=== PATIENT | male | born 1945 | race Caucasian/White ===

== ENCOUNTER → 2016-12-17 | Outpatient (CLI) | payer OTHER, MEDICARE ==
[~2016-12-17] MED LIST: ACET-1256 PO; AMIO200T4 PO; ASCA500 PO; ASPEC81 PO; ASPI81TA28 PO; ATEN-173 PO; ATOR-26 PO; ATOR80TA PO; B-COCAP2 PO; CEPH500C PO; CEPH500C2 PO; CLON0.5T3 PO; DMD20 PO; DOCU100C31 PO; FAMO20TA11 PO; FURO-85 PO; GABA-113 PO; GLIP10TA9 PO; INSDGI SC; INSDGIPEN SC; LORA-741 PO; LOSA1TAB PO; LSX40 PO; MAGN400T5 PO; MAGN400T6 PO; NRN100 PO; NTRGSL/4 UT; OMEG10007 PO; POLY335019 PO; POTA10CA28 PO; SENN-61 PO; SPIR25TA PO; SPR25 PO; TAMS0.4C38 PO; TPRSR25 PO; TRAM-10 PO; ULT50X PO; WARF5TAB90 PO; ZOLP5TAB6 PO
--- NOTE | 2016-12-17 14:01 | DIAGNOSTIC IMAGING REPORT ---
RIGHT HEEL MIN 2 VIEWS CLINICAL HISTORY: PAIN AND OPEN WOUND Right COMPARISON STUDY: Right heel 05/19/2012. FINDINGS: There is again noted a 1.3 cm skin ulceration at the posterior heel. No underlying bony destruction to suggest osteomyelitis. No fracture or dislocation within the calcaneus. Vascular calcifications are noted. No radiopaque foreign bodies. Plantar and posterior calcaneal spurs. IMPRESSION: A 1.3 cm skin ulceration of the posterior heel. No radiographic evidence for osteomyelitis. Electronically signed by: Jadiel Washington M.D. 12/17/2016 1:59 PM Dictated Date/Time: 12/17/2016 1:57 PM
== END | disposition home or self-care (01) ==
LOC: C.RAD 13:14
PROVIDERS: ATTEND Emergency Medicine
DX: T14.8 Other injury of unspecified body region (principal); X58.XXXA Exposure to other specified factors, initial encounter; R52 Pain, unspecified

== ENCOUNTER 2017-03-01 16:17 | Inpatient (IN) | payer OTHER, MEDICARE ==
[~2017-03-01] VITALS: Ht 175.3 cm; Wt 110.8 kg
[~2017-03-01 16:17] MED LIST changes: -ACET-1256 PO; -AMIO200T4 PO; -ASPI81TA28 PO; -ATOR-26 PO; -CEPH500C PO; -CLON0.5T3 PO; -DMD20 PO; -DOCU100C31 PO; -FAMO20TA11 PO; -FURO-85 PO; -GABA-113 PO; -INSDGIPEN SC; -LORA-741 PO; -MAGN400T6 PO; -NRN100 PO; -POLY335019 PO; -POTA10CA28 PO; -SENN-61 PO; -SPR25 PO; -TAMS0.4C38 PO; -TPRSR25 PO; -TRAM-10 PO; -ULT50X PO; -ZOLP5TAB6 PO
--- NOTE | 2017-03-01 17:54 | EMERGENCY ROOM VISIT NOTE ---
History Report prepared by Alex: Ursula Martins Under the Supervision of: Dr. Kolton Zimmer M.D. First contact with patient: 17:13 Chief Complaint: CARDIAC ASSESSMENT Stated Complaint: CHF,POSSIBLE FLUID ON LUNG History of Present Illness The patient is a 72 year old male who presents to the Emergency Room with complaints of persistent, worsening shortness of breath over the last two weeks. The patient states that he has been at [facility] for the past two weeks after three cardiac surgeries. He additionally associates worsening leg swelling up to his hips. The patient states that prior to [facility] he was on 40 mg of Lasix twice a day, but since he was at [facility] he has been on 60 mg of Lasix daily. He states that he wears compression stockings on his legs to help with swelling. The patient reports that he takes Coumadin for atrial fibrillation. 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 The patient states that he is much more short of breath today than normal. He reports that his shortness of breath is worsened with exertion. The patient denies any fever, cough, or vomiting. He states that he has not been urinating normally--his output has decreased. 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 Source of History: patient Onset: last two weeks Position: other (global) Quality: other (shortness of breath) Timing: worsening, other (persistent) Modifying Factors (Worsening): exertion Associated Symptoms: + urinary symptoms (not urinating normally), No fevers , No cough, No vomiting Note: Associated Symptoms: increasing leg edema Review of Systems See HPI for pertinent positives & negatives. A total of 10 systems reviewed and were otherwise negative. Past Medical & Surgical Medical Problems: (1) Aortic stenosis (2) Atrial fibrillation (3) CHF (congestive heart failure) (4) Coronary artery disease (5) Diabetes mellitus, type II (6) Diabetic neuropathy (7) Difficult airway (8) Dyslipidemia (9) History of renal calculi (10) Hypertension (11) Stroke Surgical Problems: (1) Status post cataract extraction (2) Status post coronary artery bypass grafting (3) status post Syme amputation left great toe Family History Heart disease Social History Smoking Status: Never Smoker Alcohol Use: none Drug Use: none Marital Status: Housing Status: lives with significant other Occupation Status: retired Current/Historical Medications Scheduled Amiodarone Hcl (Cordarone), 200 MG PO DAILY Aspirin (Aspirin Ec), 81 MG PO DAILY Atorvastatin (Lipitor), 80 MG PO DAILY Clonazepam (Klonopin), 0.25 MG PO BID Famotidine (Pepcid), 20 MG PO DAILY Furosemide (Lasix), 3 TAB PO BID Gabapentin (Neurontin), 300 MG PO TID Insulin Glargine (Lantus), 75-100 UNITS SC DAILY Magnesium Oxide (Mag-Ox), 400 MG PO DAILY Nitroglycerin (Nitrostat), 0.4 MG UT PRN Polyethylene Glycol 3350 (Miralax), 17 GM PO DAILY Potassium Chloride (Micro-K Ext Rel), 10 MEQ PO BID Senna (Senokot), 1 TAB PO DAILY Tamsulosin Hcl (Flomax), 1 CAP PO DAILY Warfarin Sodium (Coumadin), 5 MG PO DAILY Scheduled PRN Acetaminophen (Tylenol), 500 MG PO Q4H PRN for Pain or Fever Clonazepam (Klonopin), 0.5 MG PO HS PRN for Anxiety Docusate Sodium (Docusate Sodium), 1 CAP PO BID PRN for Constipation Lorazepam (Ativan), 0.5 MG PO Q6H PRN for Anxiety/Agitation Zolpidem Tartrate (Zolpidem Tartrate), 1 TAB PO HS PRN for Sleep Allergies Coded Allergies: Lisinopril (Unverified Allergy, Severe, COUGH, 03/01/17) Physical Exam Vital Signs Date Time Temp Pulse Resp B/P (MAP) Pulse Ox O2 Delivery O2 Flow Rate FiO2 03/01/17 20:18 78 20 170/51 100 Nasal Cannula 5.0 03/01/17 18:12 78 18 98 Nasal Cannula 03/01/17 17:47 95 Nasal Cannula 3.0 03/01/17 17:41 86 03/01/17 17:32 94 Nasal Cannula 03/01/17 17:19 94 Nasal Cannula 3.0 03/01/17 16:20 36.4 77 24 125/65 89 Room Air Physical Exam GENERAL: Patient is in no acute distress. HEENT: No acute trauma, normocephalic atraumatic, mucous membranes moist, no nasal congestion, no scleral icterus. NECK: No stridor, no adenopathy, no meningismus, trachea is midline. LUNGS: Crackles at both bases, breath sounds are equal, no wheezing. HEART: Irregular with a normal rate, no obvious murmurs. ABDOMEN: Soft, nontender, bowel sounds positive, no hernias, no peritonitis. EXTREMITIES: Significant bilateral pedal edema. No cyanosis, full range of motion of all the joints without pain or difficulty, no signs for acute trauma. NEUROLOGIC: Oriented x 3, no acute motor or sensory deficits, no focal weakness. SKIN: No rash, no jaundice, no diaphoresis. Medical Decision & Procedures ER Provider Diagnostic Interpretation: X-ray results as stated below per interpretation by me and the radiologist: SINGLE VIEW CHEST CLINICAL HISTORY: Dyspnea. FINDINGS: An AP, portable, upright chest radiograph is compared to study dated 08/23/2016. The examination is degraded by portable technique, large body habitus, and patient rotation. The patient is status post midline sternotomy. The heart is enlarged and there is atherosclerotic calcification of the thoracic aorta. There is pulmonary vascular congestion and interstitial edema. Layering pleural effusions are identified with bibasilar consolidation. No pneumothorax is seen. The skeletal structures are osteopenic. The bony thorax is grossly intact. IMPRESSION: 1. Cardiomegaly with evidence of congestive failure and interstitial edema. 2. Layering pleural effusions with bibasilar consolidation. This likely represents atelectasis. Correlated clinically for evidence of superimposed pneumonia. Electronically signed by: Kolton Rahman M.D. 03/01/2017 6:10 PM Dictated Date/Time: 03/01/2017 6:09 PM Laboratory Results 03/01/17 18:30 Test 03/01/17 18:30 03/01/17 19:51 Prothrombin Time 25.1 SECONDS (9.0-12.0) Prothromb Time International Ratio 2.3 (0.9-1.1) Activated Partial Thromboplast Time 33.9 SECONDS (21.0-31.0) Partial Thromboplastin Ratio 1.3 Anion Gap 6.0 mmol/L (3-11) Estimated GFR () 77.3 Estimated GFR (Non- 66.7 BUN/Creatinine Ratio 43.2 (10-20) Calcium Level 8.0 mg/dl (8.5-10.1) Magnesium Level 2.9 mg/dl (1.8-2.4) Total Bilirubin 0.7 mg/dl (0.2-1) Aspartate Amino Transf (AST/SGOT) 25 U/L (15-37) Alanine Aminotransferase (ALT/SGPT) 35 U/L (12-78) Alkaline Phosphatase 149 U/L (45-117) Troponin I 0.050 ng/ml (0-0.045) Pro-B-Type Natriuretic Peptide 6506 pg/ml (0-900) Total Protein 7.0 gm/dl (6.4-8.2) Albumin 2.5 gm/dl (3.4-5.0) Globulin 4.5 gm/dl (2.5-4.0) Albumin/Globulin Ratio 0.6 (0.9-2) Laboratory results reviewed by me. Medications Administered Medications (Trade) Dose Ordered Sig/Amy Route Start Time Stop Time Status Last Admin Dose Admin Bumetanide (Bumex IV) 1 mg NOW STAT IV 03/01/17 18:37 03/01/17 18:38 DC 03/01/17 19:00 1 MG Albuterol/ Ipratropium (Duoneb) 3 ml NOW STAT INH 03/01/17 19:56 03/01/17 19:57 DC 03/01/17 20:01 3 ML ECG Indication: SOB/dyspnea Rate (beats per minute): 93 Rhythm: atrial fibrillation Findings: no acute ischemic change, other (old septal infarct, significant baseling artifact making it difficut to interpret) ED Course 1724: The patient was evaluated in room C5. A complete history and physical exam was performed by the family service caseworker. 1745: The patient was evaluated in room C5. A complete history and physical exam was performed. I discussed the treatment plan with him and he verbalized complete understanding and agreement. He will be evaluated for further treatment. 1836: Ordered Bumex IV 1 mg IV. 1928: The resident spoke to Khris Gray regarding the patient. Dr. Vang is going to evaluate the patient for further treatment. 1930: The resident reevaluated the patient and the patient is doing well. He discussed the exam findings with the patient and he discussed the treatment plan. The patient verbalized complete understanding and agreement. He will be evaluated for further treatment. Medical Decision The patient is a 72 year old male who presents to the ED with complaints of shortness of breath. Differential diagnoses considered include renal failure, fluid overload, CHF, pneumonia or bronchitis, cardiac ischemia, pericardial effusion. The patient's CBC is currently pending. Renal panel testing does not show renal failure or significant electrolyte abnormality. The patient's INR is elevated consistent with his Coumadin use. There is no hepatitis. EKG shows A. fib without any acute ischemia. There was a very mild elevation to the cardiac troponin-this could be consistent with cardiac strain or injury. Chest x-ray shows CHF and bilateral pleural effusions. BNP is quite elevated consistent with fluid overload. Patient was given a DuoNeb to help his wheezing. He was given IV Bumex to help with diuresis. Given the hypoxia, given the increased weight gain, given the findings on x-ray and on laboratory testing, admission/observation is warranted. The patient requires further in-hospital diuresis, he requires further cardiac workup. He may even need a thoracentesis. The case manager specialist have been involved. The patient is aware of his findings. The on-call hospitalist was consulted. Medication Reconciliation: I attest that I have personally reviewed the patient' s current medication list. Blood Pressure Screening: Patient was found to have normal blood pressure on screening and does not require follow-up. Consults Time Called: 1923 Consulting Physician: Khris Gray Returned Call: 1928 The resident spoke to Khris Gray regarding the patient. Dr. Vang is going to evaluate the patient for further treatment. Impression Primary Impression: Hypoxia Additional Impressions: CHF (congestive heart failure) Pleural effusion Elevated troponin Scribe Attestation The scribe's documentation has been prepared under my direction and personally reviewed by me in its entirety. I confirm that the note above accurately reflects all work, treatment, procedures, and medical decision making performed by me. Departure Information Dispostion Being Evaluated By Hospitalist Barrera Weber M.D. (PCP) Problem Qualifiers
--- NOTE | 2017-03-01 18:02 | EMERGENCY ROOM VISIT NOTE ---
History First contact with patient: 17:21 Chief Complaint: CARDIAC ASSESSMENT Stated Complaint: CHF,POSSIBLE FLUID ON LUNG History of Present Illness The patient is a 72 year old male who presents to the Emergency Room with complaints of shortness of breath and leg swelling. The patient is currently at [facility] for rehab (has been there for 2 weeks) after having 3 surgeries at [place] including Aortic Valve repair, a correction, and a sternum repair. Since going to [facility] the patient has had worsening leg swelling and shortness of breath. He was initially on 40mg of Lasix BID prior to surgery, but since being at [facility] has been on 60mg Lasix daily. The patient was also not requiring oxygen prior to going for surgery, but has recently been using oxygen at night to sleep and is now requiring oxygen throughout the day. The patient was seen by his bookbinder chief Dr. Caputo this afternoon and was told he needed to be seen for diuresis at the hospital and was sent over. He denies any fevers, cough, abdominal pain, leg pain, headache, chills, diarrhea, vomiting, or back pain. Review of Systems See HPI for pertinent positives and negatives. A total of ten systems were reviewed and were otherwise negative. Past Medical/Surgical History Medical Problems: (1) Aortic stenosis (2) Atrial fibrillation (3) CHF (congestive heart failure) (4) Coronary artery disease (5) Diabetes mellitus, type II (6) Diabetic neuropathy (7) Difficult airway (8) Dyslipidemia (9) History of renal calculi (10) Hypertension (11) Stroke Surgical Problems: (1) Status post cataract extraction (2) Status post coronary artery bypass grafting (3) status post Syme amputation left great toe Family History Heart disease Social History Smoking Status: Never Smoker Alcohol Use: none Drug Use: none Marital Status: Housing Status: lives with significant other Occupation Status: retired Current/Historical Medications Scheduled Amiodarone Hcl (Cordarone), 200 MG PO DAILY Aspirin (Aspirin Ec), 81 MG PO DAILY Atorvastatin (Lipitor), 80 MG PO DAILY Clonazepam (Klonopin), 0.25 MG PO BID Famotidine (Pepcid), 20 MG PO DAILY Furosemide (Lasix), 3 TAB PO BID Gabapentin (Neurontin), 300 MG PO TID Insulin Glargine (Lantus), 75-100 UNITS SC DAILY Magnesium Oxide (Mag-Ox), 400 MG PO DAILY Nitroglycerin (Nitrostat), 0.4 MG UT PRN Polyethylene Glycol 3350 (Miralax), 17 GM PO DAILY Potassium Chloride (Micro-K Ext Rel), 10 MEQ PO BID Senna (Senokot), 1 TAB PO DAILY Tamsulosin Hcl (Flomax), 1 CAP PO DAILY Warfarin Sodium (Coumadin), 5 MG PO DAILY Scheduled PRN Acetaminophen (Tylenol), 500 MG PO Q4H PRN for Pain or Fever Clonazepam (Klonopin), 0.5 MG PO HS PRN for Anxiety Docusate Sodium (Docusate Sodium), 1 CAP PO BID PRN for Constipation Lorazepam (Ativan), 0.5 MG PO Q6H PRN for Anxiety/Agitation Zolpidem Tartrate (Zolpidem Tartrate), 1 TAB PO HS PRN for Sleep Allergies Coded Allergies: Lisinopril (Unverified Allergy, Severe, COUGH, 03/01/17) Physical Exam Vital Signs Date Time Temp Pulse Resp B/P (MAP) Pulse Ox O2 Delivery O2 Flow Rate FiO2 03/01/17 18:12 78 18 98 Nasal Cannula 03/01/17 17:47 95 Nasal Cannula 3.0 03/01/17 17:41 86 03/01/17 17:32 94 Nasal Cannula 03/01/17 17:19 94 Nasal Cannula 3.0 03/01/17 16:20 36.4 77 24 125/65 89 Room Air Physical Exam GENERAL: Awake, alert, in mild distress HENT: Normocephalic, atraumatic. Oropharynx unremarkable. EYES: Normal conjunctiva. Sclera non-icteric. NECK: Supple. No nuchal rigidity. RESPIRATORY: Decreased breath sounds bilaterally, bilateral crackles at lung bases CARDIAC: Irregularly Irregular. Extremities warm and well perfused. Pulses equal. ABDOMEN: Soft, edematous, No tenderness to palpation. No rebound or guarding. No masses. RECTAL: Deferred. MUSCULOSKELETAL: Chest examination reveals no tenderness. The back is symmetrical on inspection without obvious abnormality. There is no CVA tenderness to palpation. No joint edema. LOWER EXTREMITIES: Bilateral 4+ pitting edema to the hip. Fluid seeping from the lower extremities bilaterally. Compression stalkings over both legs. NEURO: Normal sensorium. No sensory or motor deficits noted. SKIN: No rash or jaundice noted. Medical Decision & Procedures Laboratory Results 03/01/17 18:30 Test 03/01/17 18:30 03/01/17 19:51 Prothrombin Time 25.1 SECONDS (9.0-12.0) Prothromb Time International Ratio 2.3 (0.9-1.1) Activated Partial Thromboplast Time 33.9 SECONDS (21.0-31.0) Partial Thromboplastin Ratio 1.3 Anion Gap 6.0 mmol/L (3-11) Estimated GFR () 77.3 Estimated GFR (Non- 66.7 BUN/Creatinine Ratio 43.2 (10-20) Calcium Level 8.0 mg/dl (8.5-10.1) Total Bilirubin 0.7 mg/dl (0.2-1) Aspartate Amino Transf (AST/SGOT) 25 U/L (15-37) Alanine Aminotransferase (ALT/SGPT) 35 U/L (12-78) Alkaline Phosphatase 149 U/L (45-117) Troponin I 0.050 ng/ml (0-0.045) Pro-B-Type Natriuretic Peptide 6506 pg/ml (0-900) Total Protein 7.0 gm/dl (6.4-8.2) Albumin 2.5 gm/dl (3.4-5.0) Globulin 4.5 gm/dl (2.5-4.0) Albumin/Globulin Ratio 0.6 (0.9-2) Medications Administered Medications (Trade) Dose Ordered Sig/Amy Route Start Time Stop Time Status Last Admin Dose Admin Bumetanide (Bumex IV) 1 mg NOW STAT IV 03/01/17 18:37 03/01/17 18:38 DC 03/01/17 19:00 1 MG Medical Decision Patient is a 72 year old male that presents with bilateral leg swelling and shortness of breath Differential diagnosis includes heart failure, pneumonia, UTI, cardiac ischemia , URI, cellulitis, and other etiologies were considered - CBC, BMP, Troponin, Pro-BNP, PT, PTT - Chest Xray, EKG - Given 1mg of Bumex - Chest Xray shows pleural effusions and appearance of heart failure - Troponin elevated at 0.050 - Pro[facility]BNP [facility] Impression Primary Impression: Heart failure Additional Impressions: Atrial fibrillation Elevated troponin Departure Information Dispostion Admitted as an inpatient Referrals Barrera Puri M.D. (PCP) Patient Instructions My [facility] Problem Qualifiers Primary Impression: Heart failure Heart failure type: unspecified heart failure type Heart failure chronicity: acute on chronic Qualified Codes: I50.9 - Heart failure, unspecified Additional Impressions: Atrial fibrillation Atrial fibrillation type: chronic Qualified Codes: I48.2 - Chronic atrial fibrillation
[2017-03-01] MEDS ORDERED: WARF5TAB90 PO (18:03)
[2017-03-01] MEDS ORDERED: POLY335019 PO (18:03)
[2017-03-01] MEDS ORDERED: ACET-1256 PO (18:03)
[2017-03-01] MEDS ORDERED: FURO-85 PO (18:03)
[2017-03-01] MEDS ORDERED: SENN-61 PO (18:03)
[2017-03-01] MEDS ORDERED: GABA-113 PO (18:03)
[2017-03-01] MEDS ORDERED: CLON0.5T3 PO ×2 (18:03)
[2017-03-01] MEDS ORDERED: AMIO200T4 PO (18:03)
[2017-03-01] MEDS ORDERED: ATOR-26 PO (18:03)
[2017-03-01] MEDS ORDERED: INSDGI SC (18:03)
[2017-03-01] MEDS ORDERED: ZOLP5TAB6 PO (18:03)
[2017-03-01] MEDS ORDERED: NTRGSL/4 UT (18:03)
[2017-03-01] MEDS ORDERED: ASPI81TA28 PO (18:03)
[2017-03-01] MEDS ORDERED: TAMS0.4C38 PO (18:03)
[2017-03-01] MEDS ORDERED: FAMO20TA11 PO (18:03)
[2017-03-01] MEDS ORDERED: MAGN400T6 PO (18:03)
[2017-03-01] MEDS ORDERED: POTA10CA28 PO (18:03)
[2017-03-01] MEDS ORDERED: LORA-741 PO (18:03)
[2017-03-01] MEDS ORDERED: DOCU100C31 PO (18:03)
--- NOTE | 2017-03-01 18:11 | DIAGNOSTIC IMAGING REPORT ---
SINGLE VIEW CHEST CLINICAL HISTORY: Dyspnea. FINDINGS: An AP, portable, upright chest radiograph is compared to study dated 08/23/2016. The examination is degraded by portable technique, large body habitus, and patient rotation. The patient is status post midline sternotomy. The heart is enlarged and there is atherosclerotic calcification of the thoracic aorta. There is pulmonary vascular congestion and interstitial edema. Layering pleural effusions are identified with bibasilar consolidation. No pneumothorax is seen. The skeletal structures are osteopenic. The bony thorax is grossly intact. IMPRESSION: 1. Cardiomegaly with evidence of congestive failure and interstitial edema. 2. Layering pleural effusions with bibasilar consolidation. This likely represents atelectasis. Correlated clinically for evidence of superimposed pneumonia. Electronically signed by: Kolton Rahman M.D. 03/01/2017 6:10 PM Dictated Date/Time: 03/01/2017 6:09 PM
[2017-03-01] MEDS ORDERED: BUMETANIDE SOLN 1 MG/4 ML VIAL IV STA (18:37)
[2017-03-01 18:50] LABS: ARTERIAL BLD GAS O2 SATURATION 97.5 % (90-95); ARTERIAL BLOOD GAS BASE EXCESS 3.6 mEq/L (-9-1.8); ARTERIAL BLOOD GAS HCO3 28 mmol/L (19-24); ARTERIAL BLOOD GAS PO2 112 mm/Hg (80-95); ARTERIAL BLOOD GAS pH 7.47 (7.35-7.45)
[2017-03-01 18:51] LABS: ALLEN TEST POS (POS); O2 ADMINISTRATION 4L
[2017-03-01 19:03] LABS: INR 2.3 (0.9-1.1); PARTIAL THROMBOPLASTIN RATIO 1.3; PROTHROMBIN TIME (PATIENT) 25.1 SECONDS (9.0-12.0)
[2017-03-01 19:10] LABS: ALT/SGPT 35 U/L (12-78); AST/SGOT 25 U/L (15-37); BLOOD UREA NITROGEN 48 mg/dl (7-18); BUN/CREATININE RATIO 43.2 (10-20); CARBON DIOXIDE 31 mmol/L (21-32); CHLORIDE 101 mmol/L (98-107); GLUCOSE 107 mg/dl (70-99); POTASSIUM 4.9 mmol/L (3.5-5.1); SODIUM 138 mmol/L (136-145)
[2017-03-01 19:18] LABS: ALB/GLOB RATIO 0.6 (0.9-2); ALKALINE PHOSPHATASE 149 U/L (45-117)
[2017-03-01] MEDS ORDERED: ALBUT/IPRATROP 3MG/0.5MG NEB 3 ML VIAL INH STA (19:56)
[2017-03-01] MEDS ORDERED: ALBUT/IPRATROP 3MG/0.5MG NEB 3 ML VIAL ONE (19:57)
[2017-03-01 20:57] LABS: HEMATOCRIT 31.3 % (42-52); MEAN CELL VOLUME 81.9 fL (80-100); MEAN CORPUSCULAR HEMOGLOBIN 23.8 pg (25-34); MEAN CORPUSCULAR HGB CONC 29.1 g/dl (32-36); MEAN PLATELET VOLUME 9.4 fL (7.4-10.4); PLATELET COUNT 261 K/uL (130-400); RED BLOOD COUNT 3.82 M/uL (4.7-6.1); WHITE BLOOD COUNT 8.94 K/uL (4.8-10.8)
[2017-03-01 21:22] LABS: ANISOCYTOSIS PRESENT; BASO % 0.3 %; BASO ABS # 0.03 K/uL (0-0.2); COMPLETE YES; HYPOCHROMIA PRESENT; IG% 0.4 %; LYMPH % 7.2 %; LYMPH ABS # 0.64 K/uL (1.2-3.4); MONO % 7.8 %; NEUT % 83.3 %; OVALOCYTES 1+; POLYCHROMASIA 1+; SCHISTOCYTES OCCASIONAL
[2017-03-01] MEDS ORDERED: CLONAZEPAM 0.5 MG TAB PO ONE (21:38)
[2017-03-01] MEDS ORDERED: GLUCAGON FOR INJ 1 MG VIAL SQ PRN (21:45)
[2017-03-01] MEDS ORDERED: GLUCOSE 40% GEL 15 GM TUBE PO PRN (21:45)
[2017-03-01] MEDS ORDERED: ALBUT/IPRATROP 3MG/0.5MG NEB 3 ML VIAL INH PRN (21:45)
[2017-03-01] MEDS ORDERED: NITROGLYCERIN 0.4 MG SL PER TAB CHARGE SL PRN (21:45)
[2017-03-01] MEDS ORDERED: DOCUSATE SODIUM 100 MG CAP PO PRN (21:45)
[2017-03-01] MEDS ORDERED: HYDROmorphone INJ 1 MG/ML SYR IV PRN (21:45)
[2017-03-01] MEDS ORDERED: DEXTROSE 50% 50 ML SYR IV PRN (21:45)
[2017-03-01] MEDS ORDERED: GLUCOSE 10 TABS/TUBE PO PRN (21:45)
[2017-03-01] MEDS ORDERED: ACETAMINOPHEN 325 MG TAB PO PRN (21:45)
[2017-03-01] MEDS ORDERED: ACETAMINOPHEN 500 MG TAB PO PRN (21:45)
[2017-03-01] MEDS ORDERED: TRAMADOL HCL 50 MG TAB PO PRN (21:45)
[2017-03-01 22:06] VITALS: Ht 175.3 cm; Wt 110.8 kg
[2017-03-01 22:07] VITALS: BP 141/80; PULSE 97; TEMP 37.8
[2017-03-01 23:30] VITALS: BP 98/38; PULSE 75; TEMP 36.6; O2SAT 97
[2017-03-01 23:59] VITALS: O2SAT 97
[2017-03-02] VITALS (11 sets, daily range): BP systolic 103–134; BP diastolic 60–85; PULSE 63–87; TEMP 35.5–37.1; O2SAT 94–100
[2017-03-02 07:23] LABS: MEAN CELL VOLUME 82.4 fL (80-100); MEAN CORPUSCULAR HEMOGLOBIN 23.6 pg (25-34); MEAN CORPUSCULAR HGB CONC 28.7 g/dl (32-36); MEAN PLATELET VOLUME 9.4 fL (7.4-10.4); PLATELET COUNT 230 K/uL (130-400); RED BLOOD COUNT 3.64 M/uL (4.7-6.1); WHITE BLOOD COUNT 9.16 K/uL (4.8-10.8)
[2017-03-02 07:28] LABS: INR 2.4 (0.9-1.1); PROTHROMBIN TIME (PATIENT) 27.2 SECONDS (9.0-12.0)
[2017-03-02 07:50] LABS: ANISOCYTOSIS PRESENT; BASO % 0.2 %; BASO ABS # 0.02 K/uL (0-0.2); COMPLETE YES; EOS % 0.9 %; IG% 0.3 %; LYMPH % 4.7 %; LYMPH ABS # 0.43 K/uL (1.2-3.4); MONO % 8.8 %; NEUT % 85.1 %; SPHEROCYTE OCCASIONAL
[2017-03-02] MEDS: AMIODARONE 200 MG TAB PO SCH (08:10)
[2017-03-02] MEDS: ASPIRIN 81 MG ECTAB PO SCH (08:10)
[2017-03-02] MEDS: TAMSULOSIN HCL 0.4 MG CAP PO SCH (08:11)
[2017-03-02] MEDS: MAGNESIUM OXIDE 400 MG TAB PO SCH (08:12)
[2017-03-02] MEDS: POTASSIUM CHLORIDE 10 MEQ TABCR PO SCH ×2 (08:12→20:49)
[2017-03-02] MEDS: ATORVASTATIN 40 MG TAB PO SCH (08:13)
[2017-03-02] MEDS: POLYETHYLENE (MIRALAX) 17 GM PACK PO SCH (08:13)
[2017-03-02] MEDS: GABAPENTIN 300 MG CAP PO SCH ×3 (08:13→20:50)
[2017-03-02] MEDS: FAMOTIDINE 20 MG TAB PO SCH (08:14)
[2017-03-02] MEDS: SENNA 8.6 MG TAB PO SCH (08:14)
[2017-03-02] MEDS: INSULIN ASPART 100 UNITS/ML 3 ML PEN SC SCH ×4 (08:15→20:52)
[2017-03-02] MEDS: INSULIN GLARGINE SOLOSTAR 100 UNITS/ML 3 ML PEN SC SCH (08:17)
[2017-03-02] MEDS: CLONAZEPAM 0.5 MG TAB PO SCH ×2 (08:20→20:49)
[2017-03-02 08:31] LABS: BUN/CREATININE RATIO 38.6 (10-20); CALCIUM 8.1 mg/dl (8.5-10.1); CREATININE 1.2 mg/dl (0.60-1.40); POTASSIUM 4.8 mmol/L (3.5-5.1)
[2017-03-02] MEDS ORDERED: FUROSEMIDE INJ 40 MG in SYRINGE 0 ML IV SCH (09:00)
[2017-03-02] MEDS ORDERED: PERFLUTREN LIPID MICROSPHERE (DEFINITY) IV ONE (09:48)
--- NOTE | 2017-03-02 11:25 | HISTORY & PHYSICAL EXAMINATION ---
DATE OF ADMISSION: 03/01/2017 PRIMARY CARE PHYSICIAN: Dr. Puri. CHIEF COMPLAINT: CHF. HISTORY OF PRESENT ILLNESS: History obtained from patient and records. Medical history significant for chronic systolic heart failure (most recent EF of 45%) 2 to ischemic cardiomyopathy, CAD status post CABG, sp recent TAVR sp prosthetic valve rupture sp repair (12/2016), history of AFib/AFlutter, on Coumadin. history of CVA, PVD, DM2, insulin requiring, chronic anemia (baseline hemoglobin 8-9). hx cdif sp tx Recent confinement July 2016 for decompensated heart failure. Px confined at [facility] January 22 to 2016 for TAVR. Complicated postop course w/c included resp failure requiring repeat intubation and eventually prolonged MV, ruptured prosthetic AV sp repair, additional surgery for sternal wound infection. postop CVA, UTI sp tx, Cdif sp tx. Toprol switched to Amiodarone during confinement. Patient noted to be hoarse at time of discharge to [facility] about 2 weeks ago. As per note, the patient's twice a day oral Lasix changed to oral once daily Lasix at [facility]. Increasing shortness of breath for the last few weeks, orthopnea, samantha leg swelling and abdominal distention. No chest pain. no cough symptoms. Patient claims weight gain of 20 pounds the last 2 weeks. Patient was seen on followup at [facility] global chief creative officer's office yesterday. Px felt to have significant volume overload. Other recommendations as per Cardio note : repeat echo recommended to assess pericardial fluid noted on recent TTE. attempt to discontinue amiodarone and resume low dose Toprol XL. Sent to the Emergency Room, Px received Bumex. MEDICAL HISTORY: As above. A 2D echo from 02/21/2017 showed small sized basal septal inferior-posterior wall segment. EF 45%, mildly hypokinetic LV wall segment, aortic valve prosthesis noted. Small pericardial effusion noted as well. SURGERIES: Aortic valve replacement, CABG, mitral valve plasty, cataract surgery, sternum separation, great toe amputation. HOME MEDICATIONS: Mag oxide, Nitrostat, MiraLax, Micro-K, Flomax, Coumadin, zolpidem, Lasix, Pepcid, Neurontin, Lantus, Ativan, Cordarone, aspirin, Tylenol, Lipitor, Klonopin. ALLERGIES: TO LISINOPRIL. FAMILY HISTORY: Unknown, as the patient was adopted. PERSONAL AND SOCIAL HISTORY: Nonsmoker, no chronic ETOH intake. 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 REVIEW OF SYSTEMS: As per HPI. All other ROS negative. PHYSICAL EXAMINATION: VITAL SIGNS: Blood pressure was noted to be 125/68, pulse rate 90, RR 24, temperature 36.4, sats 89 on room air. later 94 on 3L GENERAL: Noted to be in minimal respiratory distress, anxious, obese. dysphonic SKIN: Pallor. HEENT: Pale palpebral conjunctivae. Dry mucosa. nasal cannula noted NECK: Short neck. JVD noted. CHEST: Decreased effort. HEART: Irregular. ABDOMEN: Some distention. EXTREMITIES: samantha lower extremity edema. no tenderness NEUROLOGIC: No gross focality except for dysphonia. LABS: Hemoglobin 7.9, white cell count 9.1, hematocrit 30, platelets 261. Sodium 138, potassium 4.4, chloride 101, CO2 31, BUN 40, creatinine 1, glucose was noted to be 100. Troponin was noted to be 0.05. INR was 2.3. Hemoglobin A1c from October 2016 was noted to be 5.7. ABG: pH 7.47, pCO2 39, pO2 112, 97 on 4 liters. IMAGING: Chest x-ray showed cardiomegaly with CHF, pleural effusion. EKG as per my interpretation : rate 90, AFib. low voltage, PRWP ASSESSMENT: 1. Acute hypoxemic resp failure 2 to Decompensated heart failure hx systolic HF secondary to ischemic cardiomyopathy (EF 45%) possibly from recent maintenance diuretic changes at rehab facility following recent confinement from [facility] for recent TAVR sp rupture sp repair. Rule out progression of pericardial effusion noted on recent outpatient 2D echo as contributory factor to CHF 2. CAD sp CABG 3. HTN, stable 4. AFib, rate-controlled on Amio, INR tx 5. History of PVD asper records, 6. Anemia, hemoglobin at baseline 7. DM2, insulin requiring, well-controlled as of recent HgA1c. 8. postop dysphonia 9. hx cdif sp tx 10. postop deconditioning, px currently undergoing rehab at [facility]: PCU supplemental O2 diuretic therapy. nebs prn strict IOs, daily weights, CHF education Repeat 2D echo; resume BB (wean off Amio) as per outpx Cardio recommendation. basal Lantus, ISS BG goal 140-180 outpx ENT eval re postop dysphonia PT, OT eval. Social service RE discharge planning. (Patient hesitant to return to [facility] upon discharge from hospital.) DVT prophylaxis, Coumadin, INR 2-3. Full code. MTDD
--- NOTE | 2017-03-02 15:16 | Progress Note ---
Internal Med Progress Note Date of Service: Mar 02, 2017. Provider Documentation: SUBJECTIVE: Patient does have SOB, orthopnea, pedal edema. Denies any chest pain, cough, fever, chills, nausea, vomiting. On 3 L oxygen Telemetry- Atrial fibrillation, rate controlled OBJECTIVE: Vital Signs-as noted below Exam: General-AAOX3, no distress; Chronically ill looking Neck-Supple Lungs-AEBE decreased, few crackles Heart-Irregularly irregular rhythm Abdomen-Soft , non tender, BS present Extremities-B/L pedal edema Neuro-Grossly no focal deficits Lab data as noted below. ASSESSMENT & PLAN: ASSESSMENT AND PLAN : CHF, SYSTOLIC EXACERBATION HX OF ISCHEMIC CARDIOMYOPATHY -Presents from with c/o worsening SOB, orthopnea, pedal edema, weight gain. Lasix was decreased from 40 mg PO BID to 60 mg daily. Was sent from cardiology office for CHF exacerbation for diuresis. -Recent hx of TAVR - [facility] on 01/22/17, was discharged to rehab on 02/05/17 -S/P IV Bumex in ED -Continue with IV Lasix 40 mg BID -I/O, Daily weights. Foleys catheter placed. -Work up- Troponin - 0.04, 0.05, Echo ordered -Cardiology on board ATRIAL FIBRILLATION -Continue with amiodarone 200 mg daily as prior to admission -Anticoagulation: On coumadin with therapeutic INR -Monitor ANEMIA -Hb at baseline DM-2 IDDM WITH HYPOGLYCEMIC EPISODES -Well controlled as per recent HBA1C -ISS, Accuchecks DVT PROPHYLAXIS -Coumadin DISPOSITION Continue with tele monitoring PT/OT Rehab once stable (doesnt want to go back to [facility]) Vital Signs: Date Time Temp Pulse Resp B/P (MAP) Pulse Ox O2 Delivery O2 Flow Rate FiO2 03/02/17 16:00 94 Nasal Cannula 3.0 03/02/17 12:00 95 Nasal Cannula 3.0 03/02/17 11:15 36.3 75 18 125/85 (98) 100 Nasal Cannula 3.0 03/02/17 08:00 97 Nasal Cannula 3.0 03/02/17 08:00 36.3 72 20 134/84 (101) 97 Nasal Cannula 3.0 03/02/17 05:18 36.1 03/02/17 04:42 35.5 71 21 113/76 (88) 99 3.0 03/02/17 04:00 97 Nasal Cannula 3.0 03/02/17 00:36 97 Nasal Cannula 3.0 03/01/17 23:59 97 Nasal Cannula 3.0 03/01/17 23:30 36.6 75 20 98/38 (58) 97 Nasal Cannula 3.0 03/01/17 22:09 Nasal Cannula 03/01/17 22:07 37.8 97 20 141/80 03/01/17 21:21 75 22 118/52 100 03/01/17 20:18 78 20 170/51 100 Nasal Cannula 5.0 03/01/17 18:12 78 18 98 Nasal Cannula 03/01/17 17:47 95 Nasal Cannula 3.0 03/01/17 17:41 86 03/01/17 17:32 94 Nasal Cannula 03/01/17 17:19 94 Nasal Cannula 3.0 Lab Results: Results Past 24 Hours Test 03/01/17 18:30 03/01/17 18:39 03/02/17 05:50 03/02/17 06:39 Range/Units White Blood Count 8.94 9.16 4.8-10.8 K/uL Red Blood Count 3.82 3.64 4.7-6.1 M/uL Hemoglobin 9.1 8.6 14.0-18.0 g/dL Hematocrit 31.3 30.0 42-52 % Mean Corpuscular Volume 81.9 82.4 80-100 fL Mean Corpuscular Hemoglobin 23.8 23.6 25-34 pg Mean Corpuscular Hemoglobin Concent 29.1 28.7 32-36 g/dl Platelet Count 261 230 130-400 K/uL Mean Platelet Volume 9.4 9.4 7.4-10.4 fL Neutrophils (%) (Auto) 83.3 85.1 % Lymphocytes (%) (Auto) 7.2 4.7 % Monocytes (%) (Auto) 7.8 8.8 % Eosinophils (%) (Auto) 1.0 0.9 % Basophils (%) (Auto) 0.3 0.2 % Neutrophils # (Auto) 7.44 7.79 1.4-6.5 K/uL Lymphocytes # (Auto) 0.64 0.43 1.2-3.4 K/uL Monocytes # (Auto) 0.70 0.81 0.11-0.59 K/uL Eosinophils # (Auto) 0.09 0.08 0-0.5 K/uL Basophils # (Auto) 0.03 0.02 0-0.2 K/uL RDW Standard Deviation 57.5 58.2 36.4-46.3 fL RDW Coefficient of Variation 19.3 19.4 11.5-14.5 % Immature Granulocyte % (Auto) 0.4 0.3 % Immature Granulocyte # (Auto) 0.04 0.03 0.00-0.02 K/uL Polychromasia 1+ Hypochromasia PRESENT Anisocytosis PRESENT PRESENT Ovalocytes 1+ Schistocytes OCCASIONAL Prothrombin Time 25.1 27.2 9.0-12.0 SECONDS Prothromb Time International Ratio 2.3 2.4 0.9-1.1 Activated Partial Thromboplast Time 33.9 21.0-31.0 SECONDS Partial Thromboplastin Ratio 1.3 Sodium Level 138 140 136-145 mmol/L Potassium Level 4.9 4.8 3.5-5.1 mmol/L Chloride Level 101 102 98-107 mmol/L Carbon Dioxide Level 31 32 21-32 mmol/L Anion Gap 6.0 6.0 3-11 mmol/L Blood Urea Nitrogen 48 46 7-18 mg/dl Creatinine 1.10 1.20 0.60-1.40 mg/dl Estimated GFR () 77.3 69.6 Estimated GFR (Non- 66.7 60.1 BUN/Creatinine Ratio 43.2 38.6 10-20 Random Glucose 107 38 70-99 mg/dl Calcium Level 8.0 8.1 8.5-10.1 mg/dl Magnesium Level 2.9 1.8-2.4 mg/dl Total Bilirubin 0.7 0.2-1 mg/dl Aspartate Amino Transf (AST/SGOT) 25 15-37 U/L Alanine Aminotransferase (ALT/SGPT) 35 12-78 U/L Alkaline Phosphatase 149 45-117 U/L Troponin I 0.050 0.047 0-0.045 ng/ml Pro-B-Type Natriuretic Peptide 6506 0-900 pg/ml Total Protein 7.0 6.4-8.2 gm/dl Albumin 2.5 3.4-5.0 gm/dl Globulin 4.5 2.5-4.0 gm/dl Albumin/Globulin Ratio 0.6 0.9-2 Thyroid Stimulating Hormone (TSH) 2.870 0.300-4.500 uIu/ml Arterial Blood pH 7.47 7.35-7.45 Arterial Blood Partial Pressure CO2 39 35-46 mmHg Arterial Blood Partial Pressure O2 112 80-95 mm/Hg Arterial Blood HCO3 28 19-24 mmol/L Arterial Blood Oxygen Saturation 97.5 90-95 % Arterial Blood Base Excess 3.6 -9-1.8 mEq/L Arterial Blood Gas Delivery 4L Anuj Test POS POS Spherocytes OCCASIONAL Est Creatinine Clear Calc Drug Dose 69.2 ml/min Chemistry Specimen Hemolysis Bedside Glucose 55 70-99 mg/dl Test 03/02/17 07:01 03/02/17 10:53 03/02/17 16:06 Range/Units Bedside Glucose 87 110 156 70-99 mg/dl Microbiology Results 03/02/17 MRSA DNA Surveillance Screen - Final, Complete Specimen Negative for MRSA by DNA Probe
--- NOTE | 2017-03-02 15:42 | ECHOCARDIOGRAM REPORT ---
*NOTICE TO RECEIVING CONSTITUTION PARTY AGENCY This information is strictly Confidential and protected under [place] law. [place] law prohibits you from making any further disclosure of this information unless further disclosure is expressly permitted by the written consent of the person to whom it pertains or is authorized by law. A general authorization for the release of medical or other information is not sufficient for this purpose. Hospital accepts no responsibility if the information is made available to any other person, INCLUDING THE PATIENT. Interpretation Summary * Name: ELIZABETH OLEARY Study Date: 03/02/2017 09:29 AM BP: 113/76 mmHg * Patient Location: C.2T\S\S232\S\1 HR: 82 * : 1945 (M/d/yyyy) Gender: Male Height: 69 in * Age: 72 yrs Ethnicity: CA Weight: 249 lb * Ordering Physician: Jacques Vang * Referring Physician: Self, Referred * Performed By: Jacques Morataya RDCS * * Reason For Study: CHF * BSA: 2.3 m2 * The study was technically difficult. * The study was technically limited. * -- Conclusions -- * There is a septal, anterolateral and apical wall motion abnormality with akinesis of the segments. * The remaining left ventricular wall segments are mildly hypokinetic. * Left ventricular systolic function is moderately reduced. * The LV Ejection Fraction = 30-35%. * The right ventricle is not well visualized. * The right ventricular systolic function is grossly normal. * The left atrium is severely dilated. * There is severe mitral annular calcification. * There is trace mitral regurgitation. * There is mild tricuspid regurgitation. * Mild pulmonary hypertension is present. * The PA systolic pressure is calculated to be 47 mm Hg. * There is a prosthetic aortic valve. * There is no significant aortic regurgitation. * No hemodynamically significant valvular aortic stenosis. Procedure Details * A complete two-dimensional transthoracic echocardiogram was performed (2D, M-mode, Doppler and color flow Doppler). * The study was technically difficult. * There were technical limitations due to patient'spoor positioning * The study was technically difficult, but visualization was adequate with the administration of Definity ultrasound contrast. * A contrast injection of Definity was performed to improve assessment of LV function. * Contrast was injected into an intravenous site in the right arm. * One vial of Definity ultrasound contrast was diluted in normal saline to a total volume of 10 ml. A total of '3' ml of solution was administered during imaging. * Lot # [id number] of Definity utilized for procedure. * Expiration date UN. * The attending nurse who injected the contrast agent was BRADLEY Wilson. Left Ventricle * The left ventricle is normal in size. * There is normal left ventricular wall thickness. * Left ventricular systolic function is moderately reduced. * Ejection Fraction = 30-35%. * There is a septal, anterolateral and apical wall motion abnormality with akinesis of the segments. The remaining left ventricular wall segments are mildly hypokinetic. Right Ventricle * The right ventricle is not well visualized. * The right ventricular systolic function is grossly normal. Atria * The left atrium is severely dilated. * Right atrial size is normal. * There is no evidence of atrial septal defect, but resolution does not allow assessment for a patent foramen ovale. Mitral Valve * There is severe mitral annular calcification. * There is no mitral valve stenosis. * There is trace mitral regurgitation. Tricuspid Valve * The tricuspid valve is normal. * There is no tricuspid stenosis. * There is mild tricuspid regurgitation. * Mild pulmonary hypertension is present. The PA systolic pressure is calculated to be 47 mm Hg. Aortic Valve * The aortic valve is not well visualized. * No hemodynamically significant valvular aortic stenosis. * There is no significant aortic regurgitation. * There is a prosthetic aortic valve. Pulmonic Valve * The pulmonary valve is not well seen, but the Doppler examination is normal without significant regurgitation or stenosis. Great Vessels * The aortic root and proximal ascending aorta are normal sized. Pericardium/Pleural * There is no pericardial effusion. Great Vessels * Normal inferior vena cava diameter and respiratory variation suggests normal central venous pressure. * Normal inferior vena cava size and collapsability with sniff indicates a normal right atrial pressure of 3 mmHg Left Ventricular Diastolic Function * LV diastolic function is present based on left atrial enlargement, anbornal LV systolic dysfunction, and mitral inflow pattern with elevated E wave velocities. MMode 2D Measurements and Calculations IVSd 10 cm IVSs 1.3 cm LVIDd 4.8 cm LVIDs 3.5 cm LVPWd 1.0 cm LVPWs 1.3 cm IVS/LVPW 0.97 FS 28.0 % EDV(Teich) 109.5 ml ESV(Teich) 50.3 ml EF(Teich) 54.1 % EDV(cubed) 113.2 ml ESV(cubed) 42.3 ml EF(cubed) 62.7 % % IVS thick 25.8 % % LVPW thick 21.5 % LV mass(C)d 176.0 grams LV mass(C)dI 77.6 grams/m\S\2 LV mass(C)s 144.7 grams LV mass(C)sI 63.8 grams/m\S\2 SV(Teich) 59.2 ml SI(Teich) 26.1 ml/m\S\2 SV(cubed) 70.9 ml SI(cubed) 31.3 ml/m\S\2 EPSS 1.7 cm Ao root diam 3.5 cm Ao root area 9.7 cm\S\2 ACS 1.7 cm LA dimension 4.7 cm asc Aorta Diam 3.6 cm LA/Ao 1.3 LVOT diam 2.1 cm LVOT area 3.4 cm\S\2 LVAd ap4 33.5 cm\S\2 LVLd ap4 8.8 cm EDV(MOD-sp4) 104.0 ml LVAs ap4 25.5 cm\S\2 LVLs ap4 8.1 cm ESV(MOD-sp4) 66.0 ml EF(MOD-sp4) 36.5 % LVAd ap2 36.7 cm\S\2 LVLd ap2 8.4 cm EDV(MOD-sp2) 131.0 ml LVAs ap2 29.7 cm\S\2 LVLs ap2 8.4 cm ESV(MOD-sp2) 85.0 ml EF(MOD-sp2) 35.1 % SV(MOD-sp4) 38.0 ml SI(MOD-sp4) 16.8 ml/m\S\2 SV(MOD-sp2) 46.0 ml SI(MOD-sp2) 20.3 ml/m\S\2 Doppler Measurements and Calculations MV E max aba 153.5 cm/sec MV dec time 0.15 sec Ao V2 max 220.2 cm/sec Ao max PG 19.4 mmHg Ao max PG (full) 17.8 mmHg BORIS(V,A) 0.95 cm\S\2 BORIS(V,D) 0.95 cm\S\2 LV V1 max PG 1.5 mmHg LV V1 max 62.2 cm/sec PI end-d aba 118.4 cm/sec TR max aba 333.9 cm/sec
[2017-03-02] MEDS ORDERED: SPIRONOLACTONE 25 MG TAB PO ONE (16:15)
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
[2017-03-02] MEDS: FUROSEMIDE INJ 100 MG in DEXTROSE 5% 100ML 90 ML IV SCH (16:40)
[2017-03-02] MEDS ORDERED: POTASSIUM CHLORIDE 10 MEQ TABCR PO STA (20:13)
[2017-03-02] MEDS: ZOLPIDEM TARTRATE 5 MG TAB PO PRN (20:50)
[2017-03-03 00:16] VITALS: BP 137/71; PULSE 74; TEMP 36.7; O2SAT 99
[2017-03-03] MEDS: FUROSEMIDE INJ 100 MG in DEXTROSE 5% 100ML 90 ML IV SCH ×4 (02:43→23:55)
[2017-03-03 04:10] VITALS: BP 103/49; PULSE 67; TEMP 36.7; O2SAT 99
[2017-03-03 06:15] LABS: INR 2.4 (0.9-1.1); PROTHROMBIN TIME (PATIENT) 26.8 SECONDS (9.0-12.0)
[2017-03-03 06:35] LABS: BUN/CREATININE RATIO 39.4 (10-20); CALCIUM 7.7 mg/dl (8.5-10.1); CREATININE 1.1 mg/dl (0.60-1.40)
[2017-03-03] MEDS: INSULIN ASPART 100 UNITS/ML 3 ML PEN SC SCH ×4 (07:00→21:24)
[2017-03-03 07:01] VITALS: BP 124/60; PULSE 78; TEMP 36.6; O2SAT 94
[2017-03-03] MEDS ORDERED: POTASSIUM CHLORIDE 10 MEQ TABCR PO STA (07:18)
[2017-03-03] MEDS: AMIODARONE 200 MG TAB PO SCH (09:00)
[2017-03-03] MEDS: SPIRONOLACTONE 25 MG TAB PO SCH (09:01)
[2017-03-03] MEDS: ASPIRIN 81 MG ECTAB PO SCH (09:01)
[2017-03-03] MEDS: TAMSULOSIN HCL 0.4 MG CAP PO SCH (09:01)
[2017-03-03] MEDS: POTASSIUM CHLORIDE 10 MEQ TABCR PO SCH ×2 (09:02→20:04)
[2017-03-03] MEDS: ATORVASTATIN 40 MG TAB PO SCH (09:03)
[2017-03-03] MEDS: POLYETHYLENE (MIRALAX) 17 GM PACK PO SCH (09:03)
[2017-03-03] MEDS: MAGNESIUM OXIDE 400 MG TAB PO SCH (09:03)
[2017-03-03] MEDS: GABAPENTIN 300 MG CAP PO SCH ×3 (09:03→20:05)
[2017-03-03] MEDS: FAMOTIDINE 20 MG TAB PO SCH (09:03)
[2017-03-03] MEDS: SENNA 8.6 MG TAB PO SCH (09:04)
[2017-03-03] MEDS: INSULIN GLARGINE SOLOSTAR 100 UNITS/ML 3 ML PEN SC SCH (09:05)
[2017-03-03] MEDS: CLONAZEPAM 0.5 MG TAB PO SCH ×2 (09:09→21:03)
--- NOTE | 2017-03-03 09:45 | Cardiology Follow-Up ---
Subjective General Date of Service: Mar 03, 2017. Chief Complaint: follow-up CHF, volume overload Pt evaluation today including: conversation w/ patient, physical exam, lab review History of Present Illness The patient is a 72 year old male seen in cardiology follow-up with initial consultation having been performed 03/02/17. The patient states he feels subjectively improved today. He is sitting in bed. Furosemide infusion was initiated 03/02/17 at 1640 at a dose of 10 mg per hour and patient had 2.6 L of urine output by midnight on 03/02/17 and another 1.5 L so far today. Renal function is stable. Potassium remained stable and he has received 2 doses of oral potassium sedimentation and spironolactone. Telemetry reveals recurrent controlled atrial fibrillation. Echocardiogram reviewed yesterday reveals moderate LV systolic dysfunction similar to his preoperative ejection fraction and normal prosthetic aortic valve function. Mild pulmonary hypertension likely reflective of left heart failure was present. Patient states that he has been too weak to stand on his feet. He does not feel he will be old to stand up for a formal PA and lateral chest x-ray. Allergies Coded Allergies: Lisinopril (Unverified Allergy, Severe, COUGH, 03/01/17) Social History Smoking Status: Never Smoker Hx Tobacco Use In Past Year?: No Hx Alcohol Use - Type And Amou: No Hx Substance Use - Type And Am: No Problem List Medical Problems: (1) Atrial fibrillation Status: Chronic (2) CHF (congestive heart failure) Permanent Comment: LVEF 30-35% by echo 06/17/14 Status: Chronic (3) Elevated troponin Status: Acute (4) Heart failure Status: Acute (5) Hypoxia Status: Acute (6) Hypoxia Status: Acute (7) Pleural effusion Status: Acute Physical Exam Vital Signs Last Vital Signs Documentation Date Time Temp Pulse Resp B/P (MAP) Pulse Ox O2 Delivery O2 Flow Rate FiO2 03/03/17 07:01 36.6 78 23 124/60 (81) 94 Nasal Cannula 4.0 Physical Exam Constitutional: Level of Distress: acutely ill, chronically ill Neck: trachea midline Lungs: Auscultation: pertinent finding (decreased breath sounds bilaterally at the bases) Cardiovascular: Heart Auscultation: no murmurs, irregular rate rhythm Abdomen: Bowel Sounds: pertinent finding (mild abdominal distention consistent with fluid retention) Extremities: pertinent finding (trace bilateral lower extremity edema) Assessment and Plan Assessment and Plan Impression: 72-year-old male 1. Shortness of breath, markedly volume overloaded, acute on chronic systolic heart failure with bilateral pleural effusions, findings suggestive of fluid retention intra-abdominally as well 2. 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 Past history of paroxysmal atrial fibrillation now persistent atrial fibrillation, rate controlled on anticoagulation with recent presumed cardioembolic stroke. Recommendations: Continue current therapy. Increase furosemide infusion to 15 mg/hour. Check BMP tomorrow. Continue coumadin for DVT and stroke prophylaxis. Patient to SOB for PT at present , but making incremental improvement. Of note per chart when patient was weighed at the end of a hospial stay in 2015 for CHF the recorded wt was 103 kg, and he is 113.8 at present, which is consistent with the clinical impression of current volume overload. Laboratory Results Last 24 Hours Test 03/02/17 10:53 03/02/17 16:06 03/02/17 20:31 03/03/17 05:32 Bedside Glucose 110 mg/dl 156 mg/dl 212 mg/dl Prothrombin Time 26.8 SECONDS Prothromb Time International Ratio 2.4 Sodium Level 142 mmol/L Potassium Level 4.0 mmol/L Chloride Level 103 mmol/L Carbon Dioxide Level 31 mmol/L Anion Gap 8.0 mmol/L Blood Urea Nitrogen 43 mg/dl Creatinine 1.10 mg/dl Est Creatinine Clear Calc Drug Dose 75.5 ml/min Estimated GFR () 77.3 Estimated GFR (Non- 66.7 BUN/Creatinine Ratio 39.4 Random Glucose 89 mg/dl Calcium Level 7.7 mg/dl Test 03/03/17 07:09 Bedside Glucose 84 mg/dl
[2017-03-03 10:53] VITALS: BP 110/45; PULSE 78; TEMP 37.2; O2SAT 100
--- NOTE | 2017-03-03 11:59 | Progress Note ---
Internal Med Progress Note Date of Service: Mar 03, 2017. Provider Documentation: SUBJECTIVE: Patient does have SOB, orthopnea, pedal edema. Denies any chest pain, cough, fever, chills, nausea, vomiting. On 3 L oxygen Telemetry- Atrial fibrillation, rate controlled OBJECTIVE: Vital Signs-as noted below Exam: General-AAOX3, no distress; Chronically ill looking Neck-Supple Lungs-AEBE decreased, few crackles Heart-Irregularly irregular rhythm Abdomen-Soft , non tender, BS present Extremities-B/L pedal edema Neuro-Grossly no focal deficits Lab data as noted below. ASSESSMENT & PLAN: ASSESSMENT AND PLAN : CHF, SYSTOLIC EXACERBATION - Improving clinically HX OF ISCHEMIC CARDIOMYOPATHY -Presents from HS with c/o worsening SOB, orthopnea, pedal edema, weight gain. Lasix was decreased from 40 mg PO BID to 60 mg daily. Was sent from cardiology office for CHF exacerbation for diuresis. -Recent hx of TAVR with complications- sternotomy, fistula from aorta to left atrium, mitral valve repair at [facility] on 01/22/17, was discharged to rehab on 02/05/17 -S/P IV Bumex in ED -Started on IV Lasix drip at 10 mg /hour on 03/02--> Increased to 15 mg/hour today. Creatinine, K is stable. -I/O- down 2.5 L yest, 1.5 L today, Daily weights -Work up- Troponin - 0.04, 0.05, Echo - moderate LV systolic dysfunction (EF 30- 35%) similar to his preoperative ejection fraction and normal prosthetic aortic valve function. Mild pulmonary hypertension likely reflective of left heart failure was present. -Cardiology on board . Discussed with Dr Diaz- appreciate inputs. RECENT TRANSCATHETER AORTIC VALVE REPLACEMENT WITH COMPLICATIONS- sternotomy, fistula from aorta to left atrium, mitral valve repair at [facility] on 01/22/17, was discharged to rehab on 02/05/17 ATRIAL FIBRILLATION -Continue with amiodarone 200 mg daily as prior to admission -Anticoagulation: On coumadin with therapeutic INR -Monitor CHRONIC ANEMIA -Hb at baseline DM-2 IDDM WITH HYPOGLYCEMIC EPISODES -Well controlled as per recent HBA1C -ISS, Accuchecks DVT PROPHYLAXIS -Coumadin DISPOSITION Continue with tele monitoring PT/OT Rehab once stable (doesnt want to go back to [facility]), but will need it. Vital Signs: Date Time Temp Pulse Resp B/P (MAP) Pulse Ox O2 Delivery O2 Flow Rate FiO2 03/03/17 10:53 37.2 78 24 110/45 (66) 100 Nasal Cannula 4.0 03/03/17 08:00 Nasal Cannula 4.0 03/03/17 07:01 36.6 78 23 124/60 (81) 94 Nasal Cannula 4.0 03/03/17 04:10 36.7 67 22 103/49 (67) 99 Nasal Cannula 4.0 03/03/17 04:07 Nasal Cannula 4.0 03/03/17 00:51 Nasal Cannula 4.0 03/03/17 00:16 36.7 74 24 137/71 (93) 99 Nasal Cannula 4.0 03/02/17 20:18 Nasal Cannula 4.0 03/02/17 20:16 37.1 87 20 103/69 (80) 98 Nasal Cannula 4.0 03/02/17 17:26 63 128/84 (99) 03/02/17 16:39 36.6 78 20 122/60 (80) 100 Nasal Cannula 3.0 03/02/17 16:00 94 Nasal Cannula 3.0 03/02/17 12:00 95 Nasal Cannula 3.0 Lab Results: Results Past 24 Hours Test 03/02/17 16:06 03/02/17 20:31 03/03/17 05:32 03/03/17 07:09 Range/Units Bedside Glucose 156 212 84 70-99 mg/dl Prothrombin Time 26.8 9.0-12.0 SECONDS Prothromb Time International Ratio 2.4 0.9-1.1 Sodium Level 142 136-145 mmol/L Potassium Level 4.0 3.5-5.1 mmol/L Chloride Level 103 98-107 mmol/L Carbon Dioxide Level 31 21-32 mmol/L Anion Gap 8.0 3-11 mmol/L Blood Urea Nitrogen 43 7-18 mg/dl Creatinine 1.10 0.60-1.40 mg/dl Est Creatinine Clear Calc Drug Dose 75.5 ml/min Estimated GFR () 77.3 Estimated GFR (Non- 66.7 BUN/Creatinine Ratio 39.4 10-20 Random Glucose 89 70-99 mg/dl Calcium Level 7.7 8.5-10.1 mg/dl Test 03/03/17 11:01 Range/Units Bedside Glucose 147 70-99 mg/dl
[2017-03-03 14:51] VITALS: BP 100/70; PULSE 79; TEMP 36.8; O2SAT 98
[2017-03-03 19:45] VITALS: BP 107/49; PULSE 88; TEMP 36.7; O2SAT 92
[2017-03-04] VITALS (7 sets, daily range): BP systolic 91–124; BP diastolic 50–75; PULSE 76–83; TEMP 36.5–37; O2SAT 97–100
[2017-03-04] MEDS: ZOLPIDEM TARTRATE 5 MG TAB PO PRN (00:31)
[2017-03-04 06:45] LABS: INR 2.1 (0.9-1.1); PROTHROMBIN TIME (PATIENT) 22.8 SECONDS (9.0-12.0)
[2017-03-04 07:10] LABS: BUN/CREATININE RATIO 35.8 (10-20); CALCIUM 7.9 mg/dl (8.5-10.1); CREATININE 1.2 mg/dl (0.60-1.40); MAGNESIUM 2.6 mg/dl (1.8-2.4); POTASSIUM 4.2 mmol/L (3.5-5.1)
[2017-03-04] MEDS: INSULIN ASPART 100 UNITS/ML 3 ML PEN SC SCH ×4 (07:46→20:39)
[2017-03-04] MEDS: GABAPENTIN 300 MG CAP PO SCH ×3 (07:47→20:37)
[2017-03-04] MEDS: ASPIRIN 81 MG ECTAB PO SCH (07:47)
[2017-03-04] MEDS: ATORVASTATIN 40 MG TAB PO SCH (07:47)
[2017-03-04] MEDS: FAMOTIDINE 20 MG TAB PO SCH (07:48)
[2017-03-04] MEDS: SENNA 8.6 MG TAB PO SCH (07:48)
[2017-03-04] MEDS: POTASSIUM CHLORIDE 10 MEQ TABCR PO SCH ×2 (07:49→20:36)
[2017-03-04] MEDS: SPIRONOLACTONE 25 MG TAB PO SCH (07:49)
[2017-03-04] MEDS: TAMSULOSIN HCL 0.4 MG CAP PO SCH (07:49)
[2017-03-04] MEDS: MAGNESIUM OXIDE 400 MG TAB PO SCH (07:49)
[2017-03-04] MEDS: AMIODARONE 200 MG TAB PO SCH (07:50)
[2017-03-04] MEDS: POLYETHYLENE (MIRALAX) 17 GM PACK PO SCH (07:50)
[2017-03-04] MEDS: FUROSEMIDE INJ 100 MG in DEXTROSE 5% 100ML 90 ML IV SCH ×3 (08:06→20:32)
[2017-03-04] MEDS: CLONAZEPAM 0.5 MG TAB PO SCH ×2 (08:06→20:35)
[2017-03-04] MEDS: INSULIN GLARGINE SOLOSTAR 100 UNITS/ML 3 ML PEN SC SCH (08:08)
[2017-03-04] MEDS ORDERED: POTASSIUM CHLORIDE 10 MEQ TABCR PO STA (10:02)
--- NOTE | 2017-03-04 10:49 | Progress Note ---
Internal Med Progress Note Date of Service: Mar 04, 2017. Provider Documentation: SUBJECTIVE: Patient is feeling much better than on admission. SOB, orthopnea, pedal edema has significantly improved. Denies any chest pain, cough, fever, chills, nausea, vomiting. On 3 L oxygen I/O-Negative by around 3 L Telemetry- Atrial fibrillation, rate controlled OBJECTIVE: Vital Signs-as noted below Exam: General-AAOX3, no distress; Chronically ill looking Neck-Supple Lungs-AEBE decreased, few crackles Heart-Irregularly irregular rhythm Abdomen-Soft , non tender, BS present Extremities-B/L pedal edema Neuro-Grossly no focal deficits Lab data as noted below. ASSESSMENT & PLAN: ASSESSMENT AND PLAN : CHF, SYSTOLIC EXACERBATION - Slowly improving clinically with good urinary output- neg balance HX OF ISCHEMIC CARDIOMYOPATHY -Presents from HS with c/o worsening SOB, orthopnea, pedal edema, weight gain. Lasix was decreased from 40 mg PO BID to 60 mg daily. Was sent from cardiology office for CHF exacerbation for diuresis. -Recent hx of TAVR with complications- sternotomy, fistula from aorta to left atrium, mitral valve repair at [facility] on 01/22/17, was discharged to rehab on 02/05/17 -S/P IV Bumex in ED -Started on IV Lasix drip at 10 mg /hour on 03/02--> Increased to 15 mg/hour on 03/03. Creatinine, K is stable. -Work up- Troponin - 0.04, 0.05, Echo - moderate LV systolic dysfunction (EF 30- 35%) similar to his preoperative ejection fraction and normal prosthetic aortic valve function. Mild pulmonary hypertension likely reflective of left heart failure was present. -Cardiology on board . Discussed with Dr Diaz- appreciate inputs. RECENT TRANSCATHETER AORTIC VALVE REPLACEMENT WITH COMPLICATIONS- Sternotomy, fistula from aorta to left atrium, mitral valve repair at [facility] on 01/22/17, was discharged to rehab on 02/05/17 ATRIAL FIBRILLATION -Continue with amiodarone 200 mg daily as prior to admission -Anticoagulation: On coumadin with therapeutic INR -Monitor CHRONIC ANEMIA -Hb at baseline DM-2 IDDM WITH HYPOGLYCEMIC EPISODES -Well controlled as per recent HBA1C -ISS, Accuchecks DVT PROPHYLAXIS -Coumadin with therapeutic INR DISPOSITION Continue with tele monitoring PT/OT Rehab once stable (doesnt want to go back to [facility]), but will need it. on board Vital Signs: Date Time Temp Pulse Resp B/P (MAP) Pulse Ox O2 Delivery O2 Flow Rate FiO2 03/04/17 08:00 Nasal Cannula 4.0 03/04/17 07:45 119/63 (81) 03/04/17 07:30 36.8 80 19 97/50 (66) 100 Nasal Cannula 4.0 03/04/17 04:48 36.8 79 18 91/50 (64) 100 Nasal Cannula 03/04/17 04:00 Nasal Cannula 4.0 03/04/17 00:31 36.8 83 18 105/60 (75) 97 Nasal Cannula 4.0 03/03/17 23:30 Nasal Cannula 4.0 03/03/17 20:13 Nasal Cannula 03/03/17 19:45 36.7 88 18 107/49 (68) 92 Nasal Cannula 4.0 03/03/17 16:00 Nasal Cannula 4.0 03/03/17 14:51 36.8 79 21 100/70 (80) 98 Nasal Cannula 4.0 03/03/17 12:00 Nasal Cannula 4.0 03/03/17 10:53 37.2 78 24 110/45 (66) 100 Nasal Cannula 4.0 Lab Results: Results Past 24 Hours Test 03/03/17 11:01 03/03/17 16:05 03/03/17 21:21 03/04/17 06:00 Range/Units Bedside Glucose 147 189 280 70-99 mg/dl Prothrombin Time 22.8 9.0-12.0 SECONDS Prothromb Time International Ratio 2.1 0.9-1.1 Sodium Level 143 136-145 mmol/L Potassium Level 4.2 3.5-5.1 mmol/L Chloride Level 103 98-107 mmol/L Carbon Dioxide Level 36 21-32 mmol/L Anion Gap 4.0 3-11 mmol/L Blood Urea Nitrogen 43 7-18 mg/dl Creatinine 1.20 0.60-1.40 mg/dl Est Creatinine Clear Calc Drug Dose 68.8 ml/min Estimated GFR () 69.6 Estimated GFR (Non- 60.1 BUN/Creatinine Ratio 35.8 10-20 Random Glucose 108 70-99 mg/dl Calcium Level 7.9 8.5-10.1 mg/dl Magnesium Level 2.6 1.8-2.4 mg/dl Test 03/04/17 07:01 Range/Units Bedside Glucose 135 70-99 mg/dl
--- NOTE | 2017-03-04 13:26 | Cardiology Follow-Up ---
Subjective General Date of Service: Mar 04, 2017. Chief Complaint: follow-up CHF, volume overload Pt evaluation today including: conversation w/ patient, physical exam History of Present Illness The patient is a 72 year old male seen today in cardiology follow-up. He notes interval mild improvement. He still notes difficulty sleeping. He has had difficulty moving his legs since his heart surgery admission was apparently supposed to see a hospital product specialist regarding some bulging disks. He however, was walking well before his prolonged hospital stay. His intake and output balance yesterday was -2.5 L, and he is negative thus far today tolerating furosemide infusion dose of 15 mg per hour. Kidney function is stable. Electrolytes are stable. Allergies Coded Allergies: Lisinopril (Unverified Allergy, Severe, COUGH, 03/01/17) Social History Smoking Status: Never Smoker Hx Tobacco Use In Past Year?: No Hx Alcohol Use - Type And Amou: No Hx Substance Use - Type And Am: No Problem List Medical Problems: (1) Atrial fibrillation Status: Chronic (2) CHF (congestive heart failure) Permanent Comment: LVEF 30-35% by echo 06/17/14 Status: Chronic (3) Elevated troponin Status: Acute (4) Heart failure Status: Acute (5) Hypoxia Status: Acute (6) Hypoxia Status: Acute (7) Pleural effusion Status: Acute Physical Exam Vital Signs Last Vital Signs Documentation Date Time Temp Pulse Resp B/P (MAP) Pulse Ox O2 Delivery O2 Flow Rate FiO2 03/04/17 12:00 Nasal Cannula 4.0 03/04/17 11:00 36.5 76 22 124/75 (91) 99 Physical Exam Constitutional: Level of Distress: acutely ill, chronically ill Neck: trachea midline Lungs: Auscultation: pertinent finding (decreased breath sounds bilaterally at the bases) Cardiovascular: Heart Auscultation: no murmurs, irregular rate rhythm Abdomen: Bowel Sounds: pertinent finding (mild abdominal distention consistent with fluid retention) Extremities: pertinent finding (trace bilateral lower extremity edema) Assessment and Plan Assessment and Plan Impression: 72-year-old male 1. Shortness of breath, markedly volume overloaded, acute on chronic systolic heart failure with bilateral pleural effusions, findings suggestive of fluid retention intra-abdominally as well 2. 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 Past history of paroxysmal atrial fibrillation now persistent atrial fibrillation, rate controlled on anticoagulation with recent presumed cardioembolic stroke. Recommendations: Continue current therapy. Increase furosemide infusion to 15 mg/hour. Will hold furosemide infusion while patient goes to radiology for chest US to assess size of pleural effusions. Continue coumadin for DVT and stroke prophylaxis. Laboratory Results Last 24 Hours Test 03/03/17 16:05 03/03/17 21:21 03/04/17 06:00 03/04/17 07:01 Bedside Glucose 189 mg/dl 280 mg/dl 135 mg/dl Prothrombin Time 22.8 SECONDS Prothromb Time International Ratio 2.1 Sodium Level 143 mmol/L Potassium Level 4.2 mmol/L Chloride Level 103 mmol/L Carbon Dioxide Level 36 mmol/L Anion Gap 4.0 mmol/L Blood Urea Nitrogen 43 mg/dl Creatinine 1.20 mg/dl Est Creatinine Clear Calc Drug Dose 68.8 ml/min Estimated GFR () 69.6 Estimated GFR (Non- 60.1 BUN/Creatinine Ratio 35.8 Random Glucose 108 mg/dl Calcium Level 7.9 mg/dl Magnesium Level 2.6 mg/dl Test 03/04/17 11:28
--- NOTE | 2017-03-04 15:40 | DIAGNOSTIC IMAGING REPORT ---
ULTRASOUND PLEURAL SPACES CLINICAL HISTORY: Pleural effusions. Congestive heart failure. COMPARISON STUDY: Chest x-ray dated 03/01/2017. FINDINGS: Real-time grayscale sonography of the pleural spaces is performed. There are small to moderate left and moderate right pleural effusions with associated atelectasis. The pleural effusion on the left has an estimated volume of 460 cc and the pleural effusion on the right has an estimated volume of 780 cc. IMPRESSION: Right larger than left pleural effusions as above. The right pleural effusion was marked for bedside thoracentesis. Electronically signed by: Kolton Rahman M.D. 03/04/2017 3:39 PM Dictated Date/Time: 03/04/2017 3:37 PM
--- NOTE | 2017-03-04 17:10 | Cardiology Progress Note ---
Cardiology Progress Note Date of Service Mar 04, 2017. Cardiology Progress Note chest US noted. R > left pleural effusion. Volume of R pleural effusion estimated to be 780 ml. Patient may benefit in terms of improvement in symptoms with thoracentesis, however, persistent AF if present making me hesitant to stop his anticoagulation. Will review case with pulmonary medicine tomorrow and discuss options.
[2017-03-04] MEDS: BOOST VANILLA PUDDING CUP PO SCH (17:22)
[2017-03-05] VITALS (10 sets, daily range): BP systolic 90–119; BP diastolic 41–84; PULSE 75–99; TEMP 36.4–37.5; O2SAT 97–100
[2017-03-05] MEDS: ZOLPIDEM TARTRATE 5 MG TAB PO PRN (01:32)
[2017-03-05] MEDS: FUROSEMIDE INJ 100 MG in DEXTROSE 5% 100ML 90 ML IV SCH ×3 (03:32→20:38)
[2017-03-05 06:14] LABS: MEAN PLATELET VOLUME 9.4 fL (7.4-10.4); PLATELET COUNT 226 K/uL (130-400); RED BLOOD COUNT 3.66 M/uL (4.7-6.1); WHITE BLOOD COUNT 8.63 K/uL (4.8-10.8)
[2017-03-05 06:22] LABS: INR 1.7 (0.9-1.1); PROTHROMBIN TIME (PATIENT) 18.5 SECONDS (9.0-12.0)
[2017-03-05 06:39] LABS: ANISOCYTOSIS PRESENT; BASO % 0.5 %; BASO ABS # 0.04 K/uL (0-0.2); COMPLETE YES; EOS % 2.1 %; HYPOCHROMIA PRESENT; IG% 0.2 %; LYMPH % 7.8 %; LYMPH ABS # 0.67 K/uL (1.2-3.4); MONO % 7.1 %; NEUT % 82.3 %; OVALOCYTES 1+
[2017-03-05 06:41] LABS: BUN/CREATININE RATIO 37.1 (10-20); CALCIUM 7.9 mg/dl (8.5-10.1); CREATININE 1.2 mg/dl (0.60-1.40); POTASSIUM 4.1 mmol/L (3.5-5.1)
[2017-03-05] MEDS: INSULIN ASPART 100 UNITS/ML 3 ML PEN SC SCH ×4 (07:00→20:48)
[2017-03-05] MEDS: BOOST VANILLA PUDDING CUP PO SCH ×2 (07:47→16:30)
[2017-03-05] MEDS: ASPIRIN 81 MG ECTAB PO SCH (07:48)
[2017-03-05] MEDS: AMIODARONE 200 MG TAB PO SCH (07:48)
[2017-03-05] MEDS: TAMSULOSIN HCL 0.4 MG CAP PO SCH (07:48)
[2017-03-05] MEDS: SPIRONOLACTONE 25 MG TAB PO SCH (07:48)
[2017-03-05] MEDS: ATORVASTATIN 40 MG TAB PO SCH (07:48)
[2017-03-05] MEDS: FAMOTIDINE 20 MG TAB PO SCH (07:48)
[2017-03-05] MEDS: GABAPENTIN 300 MG CAP PO SCH ×3 (07:48→20:46)
[2017-03-05] MEDS: MAGNESIUM OXIDE 400 MG TAB PO SCH (07:49)
[2017-03-05] MEDS: SENNA 8.6 MG TAB PO SCH (07:49)
[2017-03-05] MEDS: POTASSIUM CHLORIDE 10 MEQ TABCR PO SCH ×2 (07:49→20:46)
[2017-03-05] MEDS: POLYETHYLENE (MIRALAX) 17 GM PACK PO SCH (07:49)
[2017-03-05] MEDS: INSULIN GLARGINE SOLOSTAR 100 UNITS/ML 3 ML PEN SC SCH (07:51)
[2017-03-05] MEDS: CLONAZEPAM 0.5 MG TAB PO SCH ×2 (07:52→20:45)
--- NOTE | 2017-03-05 08:40 | Progress Note ---
Internal Med Progress Note Date of Service: Mar 05, 2017. Provider Documentation: SUBJECTIVE: Seen and examined at bedside. Patient states SOB, Orthopnea is better. Feels tired. "Leg swelling is same". Denies chest pain. On 3L NC currently. OBJECTIVE: Vital Signs-as noted below Physical Exam: General Appearance:Moderately built and nourished, no apparent distress Head: normocephalic, Atraumatic Eyes: normal inspection, EOMI, PERRL Neck: supple, Trachea midline Respiratory/Chest: Decreased breath sounds at bases, + Creps B/L Cardiovascular: Irregularly Irregular, No murmur Abdomen/GI:Soft, Non tender, Bowel sounds present Extremities/Musculoskelatal:normal inspection, + B/L 2+ edema Neurologic/Psych:AAOX3, grossly no focal neurological deficits Skin: normal color, warm Lab data as noted below. ASSESSMENT & PLAN: Acute on Chronic Systolic CHF: H/O ISCHEMIC CARDIOMYOPATHY Patient presented with worsening SOB, orthopnea, pedal edema, weight gain. H/O recent TAVR with complications: Sternotomy, fistula from aorta to left atrium, mitral valve repair at [facility] on 01/22/17, was discharged to rehab on 02/05/17 S/P IV Bumex in ED Continue IV Lasix drip at 15 mg/hour Monitor Renal function, electrolytes Work up: Troponin - 0.04, 0.05, ECHO: moderate LV systolic dysfunction (EF 30-35 %) similar to his preoperative ejection fraction and normal prosthetic aortic valve function. Appreciate Cardiology help May need thoracentesis ( planning to discuss with Pulm today) RECENT TRANSCATHETER AORTIC VALVE REPLACEMENT WITH COMPLICATIONS- Sternotomy, fistula from aorta to left atrium, mitral valve repair at [facility] on 01/22/17, was discharged to rehab on 02/05/17 ATRIAL FIBRILLATION Continue amiodarone 200 mg daily Was on coumadin Monitor INR:1.7 today Need to resume Coumadin if no plan for thoracentesis CHRONIC ANEMIA Hb at baseline DM II IDDM WITH HYPOGLYCEMIC EPISODES ISS, Accu checks DVT PX On Coumadin DISPOSITION Continue with tele monitoring PT/OT Rehab once stable (doesn't want to go back to [facility]), but will need it. 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 consulted Vital Signs: Date Time Temp Pulse Resp B/P (MAP) Pulse Ox O2 Delivery O2 Flow Rate FiO2 6/6/17 08:26 36.8 80 20 117/72 (87) 100 Nasal Cannula 3.0 03/05/17 04:18 36.4 75 17 90/52 (65) 97 Nasal Cannula 3.0 03/05/17 04:00 Nasal Cannula 3.0 03/05/17 03:20 104/57 (73) Nasal Cannula 03/05/17 00:03 37.3 82 19 106/58 (74) 98 Nasal Cannula 3.0 03/04/17 23:59 Nasal Cannula 3.0 03/04/17 20:00 Nasal Cannula 3.0 03/04/17 19:39 36.9 76 19 103/66 (78) 98 Room Air 03/04/17 16:42 37.0 20 112/58 (76) 100 Nasal Cannula 4.0 03/04/17 16:00 Nasal Cannula 4.0 03/04/17 12:00 Nasal Cannula 4.0 03/04/17 11:00 36.5 76 22 124/75 (91) 99 Room Air Lab Results: Results Past 24 Hours Test 03/04/17 11:28 03/04/17 16:16 03/04/17 20:10 03/05/17 05:40 Range/Units Bedside Glucose 184 167 250 70-99 mg/dl White Blood Count 8.63 4.8-10.8 K/uL Red Blood Count 3.66 4.7-6.1 M/uL Hemoglobin 8.4 14.0-18.0 g/dL Hematocrit 30.0 42-52 % Mean Corpuscular Volume 82.0 80-100 fL Mean Corpuscular Hemoglobin 23.0 25-34 pg Mean Corpuscular Hemoglobin Concent 28.0 32-36 g/dl Platelet Count 226 130-400 K/uL Mean Platelet Volume 9.4 7.4-10.4 fL Neutrophils (%) (Auto) 82.3 % Lymphocytes (%) (Auto) 7.8 % Monocytes (%) (Auto) 7.1 % Eosinophils (%) (Auto) 2.1 % Basophils (%) (Auto) 0.5 % Neutrophils # (Auto) 7.11 1.4-6.5 K/uL Lymphocytes # (Auto) 0.67 1.2-3.4 K/uL Monocytes # (Auto) 0.61 0.11-0.59 K/uL Eosinophils # (Auto) 0.18 0-0.5 K/uL Basophils # (Auto) 0.04 0-0.2 K/uL RDW Standard Deviation 58.2 36.4-46.3 fL RDW Coefficient of Variation 19.5 11.5-14.5 % Immature Granulocyte % (Auto) 0.2 % Immature Granulocyte # (Auto) 0.02 0.00-0.02 K/uL Hypochromasia PRESENT Anisocytosis PRESENT Ovalocytes 1+ Prothrombin Time 18.5 9.0-12.0 SECONDS Prothromb Time International Ratio 1.7 0.9-1.1 Sodium Level 143 136-145 mmol/L Potassium Level 4.1 3.5-5.1 mmol/L Chloride Level 101 98-107 mmol/L Carbon Dioxide Level 37 21-32 mmol/L Anion Gap 5.0 3-11 mmol/L Blood Urea Nitrogen 44 7-18 mg/dl Creatinine 1.20 0.60-1.40 mg/dl Est Creatinine Clear Calc Drug Dose 68.6 ml/min Estimated GFR () 69.6 Estimated GFR (Non- 60.1 BUN/Creatinine Ratio 37.1 10-20 Random Glucose 126 70-99 mg/dl Calcium Level 7.9 8.5-10.1 mg/dl Test 03/05/17 06:58 Range/Units Bedside Glucose 152 70-99 mg/dl
--- NOTE | 2017-03-05 09:47 | Cardiology Follow-Up ---
Subjective General Date of Service: Mar 05, 2017. Chief Complaint: follow-up CHF, volume overload Pt evaluation today including: conversation w/ patient, physical exam History of Present Illness The patient is a 72 year old male seen in follow up. He continues to make progress. 3 L of urine output overnight. Allergies Coded Allergies: Lisinopril (Unverified Allergy, Severe, COUGH, 03/01/17) Social History Smoking Status: Never Smoker Hx Tobacco Use In Past Year?: No Hx Alcohol Use - Type And Amou: No Hx Substance Use - Type And Am: No Problem List Medical Problems: (1) Atrial fibrillation Status: Chronic (2) CHF (congestive heart failure) Permanent Comment: LVEF 30-35% by echo 06/17/14 Status: Chronic (3) Elevated troponin Status: Acute (4) Heart failure Status: Acute (5) Hypoxia Status: Acute (6) Hypoxia Status: Acute (7) Pleural effusion Status: Acute Physical Exam Vital Signs Last Vital Signs Documentation Date Time Temp Pulse Resp B/P (MAP) Pulse Ox O2 Delivery O2 Flow Rate FiO2 03/05/17 08:26 36.8 80 20 117/72 (87) 100 Nasal Cannula 3.0 Physical Exam Constitutional: Level of Distress: acutely ill, chronically ill Neck: trachea midline Lungs: Auscultation: pertinent finding (decreased breath sounds bilaterally at the bases) Cardiovascular: Heart Auscultation: no murmurs, irregular rate rhythm Abdomen: Bowel Sounds: pertinent finding (mild abdominal distention consistent with fluid retention) Extremities: pertinent finding (trace bilateral lower extremity edema) Assessment and Plan Assessment and Plan Impression: 72-year-old male 1. Shortness of breath, markedly volume overloaded, acute on chronic systolic heart failure with bilateral pleural effusions, findings suggestive of fluid retention intra-abdominally as well 2. 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 Past history of paroxysmal atrial fibrillation now persistent atrial fibrillation, rate controlled on anticoagulation with recent presumed cardioembolic stroke. Recommendations: Continue current therapy. Increase furosemide infusion to 15 mg/hour. Consult pulmonary for right thoracentesis. Will likely resume coumadin post thoracentesis. INR was at goal having held coumadin and has trended down to 1.7 and will resume post procedure. If BP is OK post thoracentesis, will consider adding Entresto. Laboratory Results Last 24 Hours Test 03/04/17 11:28 03/04/17 16:16 03/04/17 20:10 03/05/17 05:40 Bedside Glucose 184 mg/dl 167 mg/dl 250 mg/dl White Blood Count 8.63 K/uL Red Blood Count 3.66 M/uL Hemoglobin 8.4 g/dL Hematocrit 30.0 % Mean Corpuscular Volume 82.0 fL Mean Corpuscular Hemoglobin 23.0 pg Mean Corpuscular Hemoglobin Concent 28.0 g/dl Platelet Count 226 K/uL Mean Platelet Volume 9.4 fL Neutrophils (%) (Auto) 82.3 % Lymphocytes (%) (Auto) 7.8 % Monocytes (%) (Auto) 7.1 % Eosinophils (%) (Auto) 2.1 % Basophils (%) (Auto) 0.5 % Neutrophils # (Auto) 7.11 K/uL Lymphocytes # (Auto) 0.67 K/uL Monocytes # (Auto) 0.61 K/uL Eosinophils # (Auto) 0.18 K/uL Basophils # (Auto) 0.04 K/uL RDW Standard Deviation 58.2 fL RDW Coefficient of Variation 19.5 % Immature Granulocyte % (Auto) 0.2 % Immature Granulocyte # (Auto) 0.02 K/uL Hypochromasia PRESENT Anisocytosis PRESENT Ovalocytes 1+ Prothrombin Time 18.5 SECONDS Prothromb Time International Ratio 1.7 Sodium Level 143 mmol/L Potassium Level 4.1 mmol/L Chloride Level 101 mmol/L Carbon Dioxide Level 37 mmol/L Anion Gap 5.0 mmol/L Blood Urea Nitrogen 44 mg/dl Creatinine 1.20 mg/dl Est Creatinine Clear Calc Drug Dose 68.6 ml/min Estimated GFR () 69.6 Estimated GFR (Non- 60.1 BUN/Creatinine Ratio 37.1 Random Glucose 126 mg/dl Calcium Level 7.9 mg/dl Test 03/05/17 06:58 Bedside Glucose 152 mg/dl
--- NOTE | 2017-03-05 12:08 | Clinical Documentation Query ---
DEMETRIS Mock : CLINICAL DOCUMENTATION QUERY Patient is a 72 year old male undergoing treatment for acute on chronic systolic CHF with associated bilateral pleural effusions. Progress note documentation includes "findings suggestive of fluid retention intra-abdominally as well". As appropriate, consider clarification as suggested below as this impacts DRG assignment. Thank you. In your clinical opinion is this patient being managed for: FLUID RETENTION DUE TO ACUTE ON CHRONIC SYSTOLIC HEART FAILURE. I WOULD NOT USE THE TERM "ASCITES" ( ) Ascites secondary to acute on chronic systolic CHF ( ) Other explanation of clinical findings (Please Explain) ( ) Unable to determine (Please Define) ( ) Need to Discuss ( ) Not Agree The medical record reflects the following clinical findings, treatment, and risk factors. Clinical Indicators:mild abdominal distention consistent with fluid retention Treatment: Furosemide infusion, telemetry, labs, I/O, pulmonary consultation Risk Factors: Age, aortic stenosis, atrial fibrillation, CAD, DM, hypertension Please clarify and document your clinical opinion in the progress notes and discharge summary. Terms such as "probable", "suspected", "likely", "questionable", "possible", or "still to be ruled out" are acceptable. IF IN AGREEMENT, YOU MUST DOCUMENT ABOVE DIAGNOSTIC STATEMENT IN DAILY PROGRESS NOTES AND DISCHARGE SUMMARY. This document is not part of the patient's record. Thank You, Eduardo Byrd, BRADLEY [phone]
[2017-03-05] MEDS ORDERED: MICONAZOLE NITRATE POWDER 43 GM EXT PRN (13:30)
[2017-03-05] MEDS ORDERED: NURSING DECISION MEDICATION ORDER SCH (13:30)
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
--- NOTE | 2017-03-05 14:52 | Procedure Note ---
Procedure Note Date of Service Mar 05, 2017. Procedure Note Procedures: Right sided Thoracentesis Consent: obtained via the patient and placed into the chart Pre-Procedural Dx: bilateral pleural effusions Post-Procedural Dx: bilateral possible exudative right sided pleural effusion Analgesia: 8cc of 1% Liquid Lidocaine Procedure: The patient was placed in an upright position and thoracic US was used to select a spot for the procedure. A spot along the posterior axillary line was marked in the 7th intercostal space. The patient was then draped and prepped in a sterile fashion. A modified Seldinger technique was then used for catheter placement. Flowing this approximately 1600cc of serosanguineous pleural fluid was removed. The patient was then cleaned and placed at a 60 degree angle in the bed were the US was used to evaluate for possible pneumothorax. The US showed good lung sliding and [place] signs. EBL: <2cc Complications: none with CXR pending
--- NOTE | 2017-03-05 14:58 | DIAGNOSTIC IMAGING REPORT ---
CHEST ONE VIEW PORTABLE CLINICAL HISTORY: S/P right sided Thoracentesis dyspnea COMPARISON STUDY: 03/01/2017 FINDINGS: Improved aeration right base status post thoracentesis. No evidence pneumothorax. A small left pleural effusion is similar. Heart is moderately enlarged. IMPRESSION: Improved aeration right base post thoracentesis. No evidence pneumothorax. Electronically signed by: Kenneth Ortiz M.D. 03/05/2017 2:56 PM Dictated Date/Time: 03/05/2017 2:55 PM
[2017-03-05] MEDS ORDERED: WARFARIN SOD 5 MG TAB PO ONE (16:00)
[2017-03-06] VITALS (12 sets, daily range): BP systolic 72–135; BP diastolic 34–71; PULSE 70–88; TEMP 36.6–37.3; O2SAT 98–100
[2017-03-06] MEDS: ZOLPIDEM TARTRATE 5 MG TAB PO PRN ×2 (00:15→23:58)
[2017-03-06] MEDS: FUROSEMIDE INJ 100 MG in DEXTROSE 5% 100ML 90 ML IV SCH ×3 (03:51→11:08)
[2017-03-06 06:28] LABS: INR 1.5 (0.9-1.1); PROTHROMBIN TIME (PATIENT) 16.2 SECONDS (9.0-12.0)
[2017-03-06 06:56] LABS: BUN/CREATININE RATIO 34.5 (10-20); CALCIUM 7.8 mg/dl (8.5-10.1); CREATININE 1.2 mg/dl (0.60-1.40); MAGNESIUM 2.4 mg/dl (1.8-2.4); POTASSIUM 3.8 mmol/L (3.5-5.1)
[2017-03-06] MEDS: INSULIN ASPART 100 UNITS/ML 3 ML PEN SC SCH ×4 (07:00→21:20)
[2017-03-06] MEDS: BOOST VANILLA PUDDING CUP PO SCH ×2 (08:21→16:59)
[2017-03-06] MEDS: ATORVASTATIN 40 MG TAB PO SCH (08:23)
[2017-03-06] MEDS: CLONAZEPAM 0.5 MG TAB PO SCH ×2 (08:23→21:12)
[2017-03-06] MEDS: SENNA 8.6 MG TAB PO SCH (08:23)
[2017-03-06] MEDS: GABAPENTIN 300 MG CAP PO SCH ×3 (08:23→21:05)
[2017-03-06] MEDS: POLYETHYLENE (MIRALAX) 17 GM PACK PO SCH (08:23)
[2017-03-06] MEDS: ASPIRIN 81 MG ECTAB PO SCH (08:23)
[2017-03-06] MEDS: SPIRONOLACTONE 25 MG TAB PO SCH (08:24)
[2017-03-06] MEDS: AMIODARONE 200 MG TAB PO SCH (08:24)
[2017-03-06] MEDS: TAMSULOSIN HCL 0.4 MG CAP PO SCH (08:24)
[2017-03-06] MEDS: FAMOTIDINE 20 MG TAB PO SCH (08:24)
[2017-03-06] MEDS: MAGNESIUM OXIDE 400 MG TAB PO SCH (08:24)
[2017-03-06] MEDS: INSULIN GLARGINE SOLOSTAR 100 UNITS/ML 3 ML PEN SC SCH (08:26)
[2017-03-06] MEDS: POTASSIUM CHLORIDE 10 MEQ TABCR PO SCH ×2 (09:01→21:05)
--- NOTE | 2017-03-06 09:47 | Progress Note ---
Internal Med Progress Note Date of Service: Mar 06, 2017. Provider Documentation: SUBJECTIVE: Seen and examined at bedside. States SOB is improving. Had R thoracentesis yesterday. Denies chest pain, cough. Offers no other complaints. Currently on IV Lasix infusion. OBJECTIVE: Vital Signs-as noted below Physical Exam: General Appearance:Moderately built and nourished, no apparent distress Head: normocephalic, Atraumatic Eyes: normal inspection, EOMI, PERRL Neck: supple, Trachea midline Respiratory/Chest: Normal breath sounds at bases, + Creps B/L at bsaes Cardiovascular: Irregularly Irregular, No murmur Abdomen/GI:Soft, Non tender, Bowel sounds present Extremities/Musculoskelatal:normal inspection, + B/L 2+ edema Neurologic/Psych:AAOX3, grossly no focal neurological deficits Skin: normal color, warm Lab data as noted below. ASSESSMENT & PLAN: Acute on Chronic Systolic CHF: H/O ISCHEMIC CARDIOMYOPATHY Patient presented with worsening SOB, orthopnea, pedal edema, weight gain. H/O recent TAVR with complications: Sternotomy, fistula from aorta to left atrium, mitral valve repair at [facility] on 01/22/17, was discharged to rehab on 02/05/17 S/P IV Bumex in ED Continue IV Lasix drip at 15 mg/hour Monitor Renal function, electrolytes Work up: Troponin - 0.04, 0.05, ECHO: moderate LV systolic dysfunction (EF 30-35 %) similar to his preoperative ejection fraction and normal prosthetic aortic valve function. Appreciate Cardiology and Pulm help S/P R thoracentesis on 03/05/17 Follow up pleural fluid studies Continue diuresis per cardiology RECENT TRANSCATHETER AORTIC VALVE REPLACEMENT WITH COMPLICATIONS- Sternotomy, fistula from aorta to left atrium, mitral valve repair at [facility] on 01/22/17, was discharged to rehab on 02/05/17 ATRIAL FIBRILLATION Continue amiodarone 200 mg daily Coumadin held for thoracentesis Monitor INR:1.5 today Coumadin resumed: 5mg today CHRONIC ANEMIA Hb at baseline DM II IDDM WITH HYPOGLYCEMIC EPISODES ISS, Accu checks DVT PX On Coumadin DISPOSITION Continue with tele monitoring PT/OT Plan to discharge to [facility] once medically stable. Lens Blank Gauger consulted Vital Signs: Date Time Temp Pulse Resp B/P (MAP) Pulse Ox O2 Delivery O2 Flow Rate FiO2 6/7/17 08:00 Nasal Cannula 3.0 03/06/17 07:27 36.7 74 20 109/49 (69) 98 Nasal Cannula 3.0 03/06/17 04:08 36.7 83 18 121/71 (88) 98 Room Air 3.0 03/06/17 04:00 Nasal Cannula 3.0 03/06/17 01:26 37.3 83 20 103/64 (77) 98 Room Air 03/06/17 00:00 Nasal Cannula 3.0 03/05/17 20:00 98 Nasal Cannula 4.5 03/05/17 19:46 37.5 99 18 101/41 (61) 98 Nasal Cannula 4.5 03/05/17 16:12 119/84 (96) 03/05/17 16:00 Nasal Cannula 3.0 03/05/17 15:25 37.0 85 20 90/43 (59) 97 Nasal Cannula 4.5 03/05/17 12:00 Nasal Cannula 3.0 03/05/17 11:46 36.8 85 19 116/62 (80) 97 Nasal Cannula 3.0 Lab Results: Results Past 24 Hours Test 03/05/17 11:21 03/05/17 14:30 03/05/17 16:15 03/05/17 20:39 Range/Units Bedside Glucose 220 185 208 70-99 mg/dl Pleural Fluid pH 7.47 7.3-7.4 Pleural Fluid Total Protein 2.0 g/dl Pleural Fluid LDH 132 IU Pleural Fluid Glucose 171 mg/dl Pleural Fluid Amylase 33 U/L Test 03/06/17 05:31 03/06/17 06:22 Range/Units Prothrombin Time 16.2 9.0-12.0 SECONDS Prothromb Time International Ratio 1.5 0.9-1.1 Sodium Level 143 136-145 mmol/L Potassium Level 3.8 3.5-5.1 mmol/L Chloride Level 101 98-107 mmol/L Carbon Dioxide Level 34 21-32 mmol/L Anion Gap 8.0 3-11 mmol/L Blood Urea Nitrogen 41 7-18 mg/dl Creatinine 1.20 0.60-1.40 mg/dl Est Creatinine Clear Calc Drug Dose 68.6 ml/min Estimated GFR () 69.6 Estimated GFR (Non- 60.1 BUN/Creatinine Ratio 34.5 10-20 Random Glucose 133 70-99 mg/dl Calcium Level 7.8 8.5-10.1 mg/dl Magnesium Level 2.4 1.8-2.4 mg/dl Bedside Glucose 156 70-99 mg/dl Microbiology Results 03/05/17 Acid Fast Stain, Received Pending 03/05/17 Mycobacterial Culture, Received Pending 03/05/17 Gram Stain - Final, Resulted 03/05/17 Bacterial Culture, Resulted Pending
--- NOTE | 2017-03-06 14:37 | Procedure Note ---
Procedure Note Date of Service Mar 06, 2017. Procedure Note Procedures: left sided Thoracentesis Consent: obtained via the patient and placed into the chart Pre-Procedural Dx: bilateral pleural effusions Post-Procedural Dx: bilateral pleural effusions Analgesia: 4cc of 1% Liquid Lidocaine Procedure: The patient was placed in an upright position and thoracic US was used to select a spot for the procedure. A spot along the posterior axillary line was marked in the 7th intercostal space. The patient was then draped and prepped in a sterile fashion. A modified Seldinger technique was then used for catheter placement. Flowing this approximately 1400cc of serosanguineous pleural fluid was removed. The patient was then cleaned and placed at a 60 degree angle in the bed were the US was used to evaluate for possible pneumothorax. The US showed good lung sliding and [place] signs. EBL: none Complications: none but CXR pending
--- NOTE | 2017-03-06 14:53 | DIAGNOSTIC IMAGING REPORT ---
SINGLE VIEW CHEST CLINICAL HISTORY: Status post thoracentesis. FINDINGS: An AP, portable, upright chest radiograph is compared to study dated 03/05/2017. The examination is significantly degraded by portable technique, large body habitus, and patient rotation. The patient is status post midline sternotomy. The heart is enlarged and there is atherosclerotic calcification of the thoracic aorta. There is mild pulmonary basilar congestion. There are small pleural effusions are identified. The left pleural effusion has decreased in size from yesterday. There is increasing airspace consolidation at the right lung base. No pneumothorax is seen. The skeletal structures are osteopenic. The bony thorax is grossly intact. IMPRESSION: 1. Cardiomegaly with mild pulmonary vascular congestion. 2. There are small bilateral pleural effusions. The left pleural effusion has decreased in size from yesterday. No pneumothorax is seen post procedure. 3. There is increasing airspace consolidation the right lung base. Correlate clinically for evidence of aspiration pneumonitis/pneumonia. Electronically signed by: Kolton Rahman M.D. 03/06/2017 2:52 PM Dictated Date/Time: 03/06/2017 2:50 PM
[2017-03-06] MEDS ORDERED: SODIUM CHLORIDE 0.9% 250ML 250 ML IV SCH (16:00)
[2017-03-06 16:04] LABS: PLEURAL FLUID TOTAL PROTEIN 1.6 g/dl
[2017-03-06 16:10] LABS: PLEURAL FLUID APPEARANCE HAZY; PLEURAL FLUID COLOR YELLOW; PLEURAL FLUID SOURCE LEFT LUNG; PLEURAL FLUID WBC (A) 144 /uL
--- NOTE | 2017-03-06 16:19 | Cardiology Follow-Up ---
Subjective General Date of Service: Mar 06, 2017. Chief Complaint: follow-up CHF, volume overload Pt evaluation today including: conversation w/ patient, physical exam History of Present Illness The patient is a 72 year old male seen in follow-up. This morning at approximate 30, the patient was awake, and feeling much improved. He was reassessed this afternoon and is now lethargic, and has had 2 recent documented episodes of low blood pressure with a blood pressure reading of 87/40 and 75/43. He had another evening of vigorous diuresis with 2.8 L of urine output yesterday prior to midnight additional diuresis today. He had undergone successful right-sided thoracentesis yesterday, and left-sided thoracentesis yielding 1.4 L was performed earlier today. Allergies Coded Allergies: Lisinopril (Verified Adverse Reaction, Intermediate, COUGH, 03/05/17) Social History Smoking Status: Never Smoker Hx Tobacco Use In Past Year?: No Hx Alcohol Use - Type And Amou: No Hx Substance Use - Type And Am: No Problem List Medical Problems: (1) Atrial fibrillation Status: Chronic (2) CHF (congestive heart failure) Permanent Comment: LVEF 30-35% by echo 06/17/14 Status: Chronic (3) Elevated troponin Status: Acute (4) Heart failure Status: Acute (5) Hypoxia Status: Acute (6) Hypoxia Status: Acute (7) Pleural effusion Status: Acute Physical Exam Vital Signs Last Vital Signs Documentation Date Time Temp Pulse Resp B/P (MAP) Pulse Ox O2 Delivery O2 Flow Rate FiO2 03/06/17 15:54 82 75/43 (54) 03/06/17 15:26 36.6 20 100 Nasal Cannula 2.0 Physical Exam Constitutional: Level of Distress: acutely ill, chronically ill Neck: trachea midline Lungs: Auscultation: pertinent finding (decreased breath sounds bilaterally at the bases) Cardiovascular: Heart Auscultation: no murmurs, irregular rate rhythm Abdomen: Bowel Sounds: pertinent finding (mild abdominal distention consistent with fluid retention) Extremities: pertinent finding (trace bilateral lower extremity edema) Assessment and Plan Assessment and Plan Impression: 72-year-old male seen in reassessment and is now more lethargic, with hypotension 1. Acute on chronic systolic heart failure, has had significant diuresis and additional fluid loss via thoracentesis. 2. 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 Past history of paroxysmal atrial fibrillation now persistent atrial fibrillation, rate controlled on anticoagulation with recent presumed cardioembolic stroke. Recommendations: DC lasix infusion. Still body volume overloaded, but likely intravascularly depleted a little bit. Will give a gentle 250 ml fluid bolus and reassess. Hold of on adding Entresto given low BP today. Continue coumadin 5 mg. INR below goal today at 1.5 , and in rate controlled AF. No heparin bridge for now due to lethargic and hypotension. Laboratory Results Last 24 Hours Test 03/05/17 16:15 03/05/17 20:39 03/06/17 05:31 03/06/17 06:22 Bedside Glucose 185 mg/dl 208 mg/dl 156 mg/dl Prothrombin Time 16.2 SECONDS Prothromb Time International Ratio 1.5 Sodium Level 143 mmol/L Potassium Level 3.8 mmol/L Chloride Level 101 mmol/L Carbon Dioxide Level 34 mmol/L Anion Gap 8.0 mmol/L Blood Urea Nitrogen 41 mg/dl Creatinine 1.20 mg/dl Est Creatinine Clear Calc Drug Dose 68.6 ml/min Estimated GFR () 69.6 Estimated GFR (Non- 60.1 BUN/Creatinine Ratio 34.5 Random Glucose 133 mg/dl Calcium Level 7.8 mg/dl Magnesium Level 2.4 mg/dl Test 03/06/17 11:19 03/06/17 14:15 Bedside Glucose 235 mg/dl Pleural Fluid Source LEFT LUNG Pleural Fluid Color YELLOW Pleural Fluid Appearance HAZY Pleural Fluid WBC 144 /uL Pleural Fluid RBC 6000 /uL Pleural Fluid pH 7.46 Pleural Fluid Polynuclear WBCs % 28.0 % Pleural Fluid Mononuclear WBCs % 72.0 % Pleural Fluid Total Protein 1.6 g/dl Pleural Fluid LDH 82 IU Pleural Fluid Glucose 175 mg/dl Pleural Fluid Amylase 26 U/L
[2017-03-06] MEDS: WARFARIN SOD 5 MG TAB PO SCH (16:58)
[2017-03-07 03:46] VITALS: BP 105/63; PULSE 89; TEMP 37; O2SAT 93
[2017-03-07 06:14] LABS: INR 1.5 (0.9-1.1); PROTHROMBIN TIME (PATIENT) 16.4 SECONDS (9.0-12.0)
[2017-03-07 06:35] LABS: BUN/CREATININE RATIO 33.7 (10-20); CALCIUM 7.9 mg/dl (8.5-10.1); CREATININE 1.3 mg/dl (0.60-1.40); MAGNESIUM 2.5 mg/dl (1.8-2.4)
[2017-03-07] MEDS: INSULIN ASPART 100 UNITS/ML 3 ML PEN SC SCH ×4 (07:00→20:52)
[2017-03-07 07:24] VITALS: BP 140/75; PULSE 72; TEMP 36.8; O2SAT 96
[2017-03-07] MEDS: BOOST VANILLA PUDDING CUP PO SCH ×2 (07:57→17:08)
[2017-03-07] MEDS: AMIODARONE 200 MG TAB PO SCH (07:58)
[2017-03-07] MEDS: ATORVASTATIN 40 MG TAB PO SCH (07:58)
[2017-03-07] MEDS: CLONAZEPAM 0.5 MG TAB PO SCH ×2 (07:58→20:49)
[2017-03-07] MEDS: FAMOTIDINE 20 MG TAB PO SCH (07:58)
[2017-03-07] MEDS: ASPIRIN 81 MG ECTAB PO SCH (07:58)
[2017-03-07] MEDS: TAMSULOSIN HCL 0.4 MG CAP PO SCH (07:58)
[2017-03-07] MEDS: GABAPENTIN 300 MG CAP PO SCH (07:58)
[2017-03-07] MEDS: SENNA 8.6 MG TAB PO SCH (07:59)
[2017-03-07] MEDS: POTASSIUM CHLORIDE 10 MEQ TABCR PO SCH (07:59)
[2017-03-07] MEDS: MAGNESIUM OXIDE 400 MG TAB PO SCH (07:59)
[2017-03-07] MEDS: SPIRONOLACTONE 25 MG TAB PO SCH (07:59)
[2017-03-07] MEDS: POLYETHYLENE (MIRALAX) 17 GM PACK PO SCH (07:59)
[2017-03-07] MEDS: INSULIN GLARGINE SOLOSTAR 100 UNITS/ML 3 ML PEN SC SCH (08:01)
[2017-03-07] MEDS ORDERED: HEPARIN IV LOW DOSE NO BOLUS SCH (11:00)
--- NOTE | 2017-03-07 11:12 | Cardiology Follow-Up ---
Subjective General Date of Service: Mar 07, 2017. Chief Complaint: follow-up CHF, volume overload Pt evaluation today including: conversation w/ patient, physical exam History of Present Illness The patient is a 72 year old male seen in follow-up. The patient is awake and oriented. Although I had assessed for transient low blood pressure yesterday his blood pressures have improved/normalized overnight last night. In retrospect, I do not think he was having a mental status change in the setting of low blood pressure yesterday but he was just in the middle of his typical afternoon nap when I had tried to talk to him and he had had a very busy morning with undergoing left-sided thoracentesis in the morning of 03/06/17 and he had gotten out of bed on several occasions and was able to stand up which is a big change in terms of his physical exertion. A few days ago he did not have the confidence to be old to stand up for a formal PA and lateral chest x-ray due to leg weakness, but his respiratory status is better, his overall activity status seems to be slowly improving. Although his daily weights have not decreased significantly, I'm not sure how accurate the weights are because it is deep felt in bed scale. He certainly had significant negative fluid balance. His noted that on 03/06/17 in addition to the 2.8 L of urine output, he had 1.7 L from thoracentesis output that is not recorded his intake and output summary. Allergies Coded Allergies: Lisinopril (Verified Adverse Reaction, Intermediate, COUGH, 03/05/17) Social History Smoking Status: Never Smoker Hx Tobacco Use In Past Year?: No Hx Alcohol Use - Type And Amou: No Hx Substance Use - Type And Am: No Problem List Medical Problems: (1) Atrial fibrillation Status: Chronic (2) CHF (congestive heart failure) Permanent Comment: LVEF 30-35% by echo 06/17/14 Status: Chronic (3) Elevated troponin Status: Acute (4) Heart failure Status: Acute (5) Hypoxia Status: Acute (6) Hypoxia Status: Acute (7) Pleural effusion Status: Acute Physical Exam Vital Signs Last Vital Signs Documentation Date Time Temp Pulse Resp B/P (MAP) Pulse Ox O2 Delivery O2 Flow Rate FiO2 03/07/17 08:00 Nasal Cannula 2.0 03/07/17 07:24 36.8 72 18 140/75 (96) 96 Physical Exam Constitutional: Level of Distress: acutely ill, chronically ill Neck: trachea midline Lungs: Auscultation: pertinent finding (still has decreased breath sounds in the bases but has had interval improvement) Cardiovascular: Heart Auscultation: no murmurs, irregular rate rhythm Abdomen: Bowel Sounds: pertinent finding (mild abdominal distention consistent with fluid retention) Extremities: pertinent finding (trace bilateral lower extremity edema) Assessment and Plan Assessment and Plan Impression: 72-year-old male seen in reassessment and is now more lethargic, with hypotension 1. Acute on chronic systolic heart failure, has had significant diuresis and additional fluid loss via thoracentesis. 2. 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 Past history of paroxysmal atrial fibrillation now persistent atrial fibrillation, rate controlled on anticoagulation with recent presumed cardioembolic stroke. Recommendations: Furosemide infusion was discontinued on 03/06/17, having had vigorous urine output. Transition him to torsemide 20 mg orally by mouth daily to start today. Start Entresto for systolic HF, low dose, with one tablet daily, and if his blood pressure remained stable we'll plan on administering on a twice a day basis. Patient's INR remains subtherapeutic and he has had a previous embolic stroke and therefore will start unfractionated heparin infusion. Coumadin to be continued Some of the patient's edema is likely due to his low albumin and third spacing with chronic illness. He is on gabapentin 300 mg, 3 times a day for neuropathic pain in this medication of course does cause fluid retention. I'm going to wean the dose down to 100 mg 3 times per day. Hopefully his neuropathic pain will remain stable and reduced the dose will help with his treatment of his fluid. Laboratory Results Last 24 Hours Test 03/06/17 11:19 03/06/17 14:15 03/06/17 16:18 03/06/17 20:18 Bedside Glucose 235 mg/dl 157 mg/dl 238 mg/dl Pleural Fluid Source LEFT LUNG Pleural Fluid Color YELLOW Pleural Fluid Appearance HAZY Pleural Fluid WBC 144 /uL Pleural Fluid RBC 6000 /uL Pleural Fluid pH 7.46 Pleural Fluid Polynuclear WBCs % 28.0 % Pleural Fluid Mononuclear WBCs % 72.0 % Pleural Fluid Total Protein 1.6 g/dl Pleural Fluid LDH 82 IU Pleural Fluid Glucose 175 mg/dl Pleural Fluid Amylase 26 U/L Test 03/07/17 05:33 03/07/17 06:53 03/07/17 11:00 Prothrombin Time 16.4 SECONDS Prothromb Time International Ratio 1.5 Sodium Level 141 mmol/L Potassium Level 4.0 mmol/L Chloride Level 100 mmol/L Carbon Dioxide Level 36 mmol/L Anion Gap 5.0 mmol/L Blood Urea Nitrogen 44 mg/dl Creatinine 1.30 mg/dl Est Creatinine Clear Calc Drug Dose 63.3 ml/min Estimated GFR () 63.2 Estimated GFR (Non- 54.5 BUN/Creatinine Ratio 33.7 Random Glucose 138 mg/dl Calcium Level 7.9 mg/dl Magnesium Level 2.5 mg/dl Bedside Glucose 160 mg/dl
[2017-03-07] MEDS ORDERED: TORSEMIDE 20 MG TAB PO ONE (11:30)
[2017-03-07] MEDS ORDERED: SACUBITRIL-VALSARTAN 24-26 MG TAB PO ONE (11:30)
[2017-03-07] MEDS: HEPARIN 25,000 UNIT/500ML D5W 500 ML IV PRN ×2 (11:49→19:47)
[2017-03-07 11:51] VITALS: BP 106/53; PULSE 93; TEMP 37.1; O2SAT 96
[2017-03-07 11:56] LABS: INR 1.5 (0.9-1.1); PARTIAL THROMBOPLASTIN RATIO 1.1; PROTHROMBIN TIME (PATIENT) 16.2 SECONDS (9.0-12.0)
[2017-03-07 12:04] LABS: HEMATOCRIT 28.7 % (42-52); MEAN CELL VOLUME 81.5 fL (80-100); MEAN CORPUSCULAR HEMOGLOBIN 23.9 pg (25-34); MEAN CORPUSCULAR HGB CONC 29.3 g/dl (32-36); MEAN PLATELET VOLUME 9.9 fL (7.4-10.4); PLATELET COUNT 194 K/uL (130-400); RED BLOOD COUNT 3.52 M/uL (4.7-6.1); WHITE BLOOD COUNT 7.69 K/uL (4.8-10.8)
--- NOTE | 2017-03-07 12:05 | Progress Note ---
Internal Med Progress Note Date of Service: Mar 07, 2017. Provider Documentation: SUBJECTIVE: Seen and examined at bedside. States feeling well today. Reports SOB is much improved. Denies cough, chest pain. Offers no new complaints. OBJECTIVE: Vital Signs-as noted below Physical Exam: General Appearance:Moderately built and nourished, no apparent distress Head: normocephalic, Atraumatic Eyes: normal inspection, EOMI, PERRL Neck: supple, Trachea midline Respiratory/Chest: Normal breath sounds at bases, + Creps B/L at bsaes Cardiovascular: Irregularly Irregular, No murmur Abdomen/GI:Soft, Non tender, Bowel sounds present Extremities/Musculoskelatal:normal inspection, + B/L 2+ edema Neurologic/Psych:AAOX3, grossly no focal neurological deficits Skin: normal color, warm Lab data as noted below. ASSESSMENT & PLAN: Acute on Chronic Systolic CHF: H/O ISCHEMIC CARDIOMYOPATHY Patient presented with worsening SOB, orthopnea, pedal edema, weight gain. H/O recent TAVR with complications: Sternotomy, fistula from aorta to left atrium, mitral valve repair at [facility] on 01/22/17, was discharged to rehab on 02/05/17 S/P IV Bumex in ED S/P IV Lasix drip at 15 mg/hour:discontinued on 03/06/17 Monitor Renal function, electrolytes Work up: Troponin - 0.04, 0.05, ECHO: moderate LV systolic dysfunction (EF 30-35 %) similar to his preoperative ejection fraction and normal prosthetic aortic valve function. Appreciate Cardiology and Pulm help S/P R thoracentesis on 03/05/17 Pleural fluid studies:pending Torsemide 20 mg daily and Entresto started on 03/07/17 Neurontin dose decreased to 100mg TID from 300mg TID (as can cause fluid retention) RECENT TRANSCATHETER AORTIC VALVE REPLACEMENT WITH COMPLICATIONS- Sternotomy, fistula from aorta to left atrium, mitral valve repair at [facility] on 01/22/17, was discharged to rehab on 02/05/17 ATRIAL FIBRILLATION Continue amiodarone 200 mg daily Monitor INR Continue Coumadin 5mg today Continue Heparin ggt till INR is therapeutic. CHRONIC ANEMIA Hb at baseline DM II IDDM WITH HYPOGLYCEMIC EPISODES ISS, Accu checks DVT PX On Coumadin DISPOSITION Continue with tele monitoring PT/OT Plan to discharge to [facility] once medically stable. [employer] consulted Vital Signs: Date Time Temp Pulse Resp B/P (MAP) Pulse Ox O2 Delivery O2 Flow Rate FiO2 03/07/17 11:51 37.1 93 22 106/53 (70) 96 Room Air 03/07/17 08:00 Nasal Cannula 2.0 03/07/17 07:24 36.8 72 18 140/75 (96) 96 03/07/17 04:00 Nasal Cannula 2.0 03/07/17 03:46 37.0 89 20 105/63 (77) 93 Nasal Cannula 3.0 03/06/17 23:59 Nasal Cannula 2.0 03/06/17 23:32 37.0 70 18 133/71 (91) 98 Nasal Cannula 3.0 03/06/17 20:00 100 Nasal Cannula 3.0 03/06/17 19:36 37.0 86 22 72/34 (47) 100 Nasal Cannula 3.0 107/50 (69) 03/06/17 17:05 70 135/65 (88) 03/06/17 16:00 100 Nasal Cannula 2.0 03/06/17 15:54 82 75/43 (54) 03/06/17 15:28 73 87/40 (56) 03/06/17 15:26 36.6 88 20 89/56 (67) 100 Nasal Cannula 2.0 Lab Results: Results Past 24 Hours Test 03/06/17 14:15 03/06/17 16:18 03/06/17 20:18 03/07/17 05:33 Range/Units Pleural Fluid Source LEFT LUNG Pleural Fluid Color YELLOW Pleural Fluid Appearance HAZY Pleural Fluid WBC 144 /uL Pleural Fluid RBC 6000 /uL Pleural Fluid pH 7.46 7.3-7.4 Pleural Fluid Polynuclear WBCs % 28.0 % Pleural Fluid Mononuclear WBCs % 72.0 % Pleural Fluid Total Protein 1.6 g/dl Pleural Fluid LDH 82 IU Pleural Fluid Glucose 175 mg/dl Pleural Fluid Amylase 26 U/L Bedside Glucose 157 238 70-99 mg/dl Prothrombin Time 16.4 9.0-12.0 SECONDS Prothromb Time International Ratio 1.5 0.9-1.1 Sodium Level 141 136-145 mmol/L Potassium Level 4.0 3.5-5.1 mmol/L Chloride Level 100 98-107 mmol/L Carbon Dioxide Level 36 21-32 mmol/L Anion Gap 5.0 3-11 mmol/L Blood Urea Nitrogen 44 7-18 mg/dl Creatinine 1.30 0.60-1.40 mg/dl Est Creatinine Clear Calc Drug Dose 63.3 ml/min Estimated GFR () 63.2 Estimated GFR (Non- 54.5 BUN/Creatinine Ratio 33.7 10-20 Random Glucose 138 70-99 mg/dl Calcium Level 7.9 8.5-10.1 mg/dl Magnesium Level 2.5 1.8-2.4 mg/dl Test 03/07/17 06:53 03/07/17 11:30 03/07/17 11:33 Range/Units Bedside Glucose 160 217 70-99 mg/dl White Blood Count 7.69 4.8-10.8 K/uL Red Blood Count 3.52 4.7-6.1 M/uL Hemoglobin 8.4 14.0-18.0 g/dL Hematocrit 28.7 42-52 % Mean Corpuscular Volume 81.5 80-100 fL Mean Corpuscular Hemoglobin 23.9 25-34 pg Mean Corpuscular Hemoglobin Concent 29.3 32-36 g/dl RDW Standard Deviation 57.6 36.4-46.3 fL RDW Coefficient of Variation 19.3 11.5-14.5 % Platelet Count 194 130-400 K/uL Mean Platelet Volume 9.9 7.4-10.4 fL Prothrombin Time 16.2 9.0-12.0 SECONDS Prothromb Time International Ratio 1.5 0.9-1.1 Activated Partial Thromboplast Time 29.8 21.0-31.0 SECONDS Partial Thromboplastin Ratio 1.1 Microbiology Results 03/06/17 Acid Fast Stain, Received Pending 03/06/17 Mycobacterial Culture, Received Pending 03/06/17 Gram Stain - Final, Resulted 03/06/17 Bacterial Culture - Preliminary, Resulted NO GROWTH TO DATE.
[2017-03-07] MEDS: GABAPENTIN 100 MG CAP PO SCH ×2 (14:33→20:49)
[2017-03-07 15:24] VITALS: BP 111/62; PULSE 92; TEMP 37.2; O2SAT 97
[2017-03-07] MEDS: WARFARIN SOD 5 MG TAB PO SCH (16:27)
[2017-03-07 18:36] LABS: PARTIAL THROMBOPLASTIN RATIO 1.6
[2017-03-07] MEDS ORDERED: HEPARIN IV BOLUS 3,000 UNIT in SYRINGE 0 ML IV SCH (19:00)
[2017-03-07 19:24] VITALS: BP 109/63; PULSE 60; TEMP 37.3; O2SAT 98
[2017-03-07 23:07] VITALS: BP 108/66; PULSE 80; TEMP 37.1; O2SAT 99
[2017-03-08] VITALS (7 sets, daily range): BP systolic 84–115; BP diastolic 37–62; PULSE 75–103; TEMP 36.4–37.3; O2SAT 94–100
[2017-03-08] MEDS: ZOLPIDEM TARTRATE 5 MG TAB PO PRN (00:10)
[2017-03-08 02:16] LABS: INR 1.6 (0.9-1.1); PARTIAL THROMBOPLASTIN RATIO 2.4; PROTHROMBIN TIME (PATIENT) 17.2 SECONDS (9.0-12.0)
[2017-03-08 06:22] LABS: HEMATOCRIT 29.3 % (42-52); MEAN CELL VOLUME 79.4 fL (80-100); MEAN CORPUSCULAR HEMOGLOBIN 22.8 pg (25-34); MEAN CORPUSCULAR HGB CONC 28.7 g/dl (32-36); MEAN PLATELET VOLUME 9.7 fL (7.4-10.4); PLATELET COUNT 197 K/uL (130-400); RED BLOOD COUNT 3.69 M/uL (4.7-6.1); WHITE BLOOD COUNT 8.48 K/uL (4.8-10.8)
[2017-03-08 06:38] LABS: BASO % 0.6 %; BASO ABS # 0.05 K/uL (0-0.2); COMPLETE YES; IG% 0.2 %; LYMPH % 9.3 %; LYMPH ABS # 0.79 K/uL (1.2-3.4); MONO % 6.7 %; NEUT % 81.2 %
[2017-03-08 06:43] LABS: BUN/CREATININE RATIO 30.9 (10-20); CREATININE 1.6 mg/dl (0.60-1.40); MAGNESIUM 2.6 mg/dl (1.8-2.4); POTASSIUM 3.9 mmol/L (3.5-5.1)
[2017-03-08 06:45] LABS: CALCIUM 7.8 mg/dl (8.5-10.1)
[2017-03-08] MEDS: INSULIN ASPART 100 UNITS/ML 3 ML PEN SC SCH ×4 (07:00→20:55)
[2017-03-08] MEDS: BOOST VANILLA PUDDING CUP PO SCH ×2 (08:06→16:14)
[2017-03-08] MEDS: GABAPENTIN 100 MG CAP PO SCH ×3 (08:07→20:55)
[2017-03-08] MEDS: AMIODARONE 200 MG TAB PO SCH (08:08)
[2017-03-08] MEDS: ASPIRIN 81 MG ECTAB PO SCH (08:10)
[2017-03-08] MEDS: ATORVASTATIN 40 MG TAB PO SCH (08:10)
[2017-03-08] MEDS: MAGNESIUM OXIDE 400 MG TAB PO SCH (08:10)
[2017-03-08] MEDS: FAMOTIDINE 20 MG TAB PO SCH (08:10)
[2017-03-08] MEDS: SPIRONOLACTONE 25 MG TAB PO SCH (08:11)
[2017-03-08] MEDS: SENNA 8.6 MG TAB PO SCH (08:12)
[2017-03-08] MEDS: TORSEMIDE 20 MG TAB PO SCH (08:12)
[2017-03-08] MEDS: TAMSULOSIN HCL 0.4 MG CAP PO SCH (08:12)
[2017-03-08] MEDS: POLYETHYLENE (MIRALAX) 17 GM PACK PO SCH (08:13)
[2017-03-08] MEDS: INSULIN GLARGINE SOLOSTAR 100 UNITS/ML 3 ML PEN SC SCH (08:18)
[2017-03-08] MEDS: CLONAZEPAM 0.5 MG TAB PO SCH ×2 (08:20→20:55)
[2017-03-08] MEDS ORDERED: SACUBITRIL-VALSARTAN 24-26 MG TAB PO SCH (09:00)
--- NOTE | 2017-03-08 09:39 | Progress Note ---
Internal Med Progress Note Date of Service: Mar 08, 2017. Provider Documentation: SUBJECTIVE: Seen and examined at bedside. Sleepy this morning but awakes easily. States feeling well. Had desaturated off oxygen per staff. Reports breathing is better. Denies cough , chest pain. Offers no new complaints. OBJECTIVE: Vital Signs-as noted below Physical Exam: General Appearance:Moderately built and nourished, no apparent distress Head: normocephalic, Atraumatic Eyes: normal inspection, EOMI, PERRL Neck: supple, Trachea midline Respiratory/Chest: Decreased breath sounds on right side. CTA Cardiovascular: Irregularly Irregular, No murmur Abdomen/GI:Soft, Non tender, Bowel sounds present Extremities/Musculoskelatal:normal inspection, + B/L 2+ edema Neurologic/Psych:AAOX3, grossly no focal neurological deficits Skin: normal color, warm Lab data as noted below. ASSESSMENT & PLAN: Acute on Chronic Systolic CHF: H/O ISCHEMIC CARDIOMYOPATHY Patient presented with worsening SOB, orthopnea, pedal edema, weight gain. H/O recent TAVR with complications: Sternotomy, fistula from aorta to left atrium, mitral valve repair at [facility] on 01/22/17, was discharged to rehab on 02/05/17 S/P IV Bumex in ED S/P IV Lasix drip at 15 mg/hour:discontinued on 03/06/17 Monitor Renal function, electrolytes Work up: Troponin - 0.04, 0.05, ECHO: moderate LV systolic dysfunction (EF 30-35 %) similar to his preoperative ejection fraction and normal prosthetic aortic valve function. Appreciate Cardiology and Pulm help S/P R thoracentesis on 03/05/17 Torsemide 20 mg daily and Entresto started on 03/07/17 Neurontin dose decreased to 100mg TID from 300mg TID (as can cause fluid retention) Cr increased to 1.6 today: Discontinue Entresto. Continue Torsemide, Aldactone Plan to give Albumin 2 doses today to mobilize fluids. Requires 2 step prior to DC RECENT TRANSCATHETER AORTIC VALVE REPLACEMENT WITH COMPLICATIONS- Sternotomy, fistula from aorta to left atrium, mitral valve repair at [facility] on 01/22/17, was discharged to rehab on 02/05/17 ATRIAL FIBRILLATION Continue amiodarone 200 mg daily Monitor INR: 1.6 today Continue Coumadin 5mg today Continue Heparin ggt till INR is therapeutic. CHRONIC ANEMIA Hb at baseline DM II IDDM WITH HYPOGLYCEMIC EPISODES ISS, Accu checks DVT PX On Coumadin DISPOSITION Continue with tele monitoring PT/OT Plan to discharge to [facility] once medically stable. [employer] consulted Vital Signs: Date Time Temp Pulse Resp B/P (MAP) Pulse Ox O2 Delivery O2 Flow Rate FiO2 03/08/17 10:55 36.5 75 20 87/44 (58) 97 Nasal Cannula 2.0 03/08/17 08:00 Nasal Cannula 2.0 03/08/17 07:29 36.9 87 22 91/60 (70) 95 Nasal Cannula 2.0 03/08/17 04:32 Nasal Cannula 2.0 Humidified Oxygen 03/08/17 03:20 36.7 81 16 115/44 (67) 100 Nasal Cannula 2.0 03/08/17 00:10 97 Nasal Cannula 2.0 Humidified Oxygen 03/07/17 23:07 37.1 80 16 108/66 (80) 99 Nasal Cannula 2.0 03/07/17 19:30 Nasal Cannula 2.0 03/07/17 19:24 37.3 60 20 109/63 (78) 98 Nasal Cannula 2.0 03/07/17 16:00 Room Air 03/07/17 15:24 37.2 92 20 111/62 (78) 97 Room Air Lab Results: Results Past 24 Hours Test 03/07/17 16:09 03/07/17 18:15 03/07/17 20:17 03/08/17 01:40 Range/Units Bedside Glucose 216 224 70-99 mg/dl Activated Partial Thromboplast Time 41.1 61.3 21.0-31.0 SECONDS Partial Thromboplastin Ratio 1.6 2.4 Prothrombin Time 17.2 9.0-12.0 SECONDS Prothromb Time International Ratio 1.6 0.9-1.1 Test 03/08/17 05:25 03/08/17 06:41 03/08/17 10:54 Range/Units White Blood Count 8.48 4.8-10.8 K/uL Red Blood Count 3.69 4.7-6.1 M/uL Hemoglobin 8.4 14.0-18.0 g/dL Hematocrit 29.3 42-52 % Mean Corpuscular Volume 79.4 80-100 fL Mean Corpuscular Hemoglobin 22.8 25-34 pg Mean Corpuscular Hemoglobin Concent 28.7 32-36 g/dl Platelet Count 197 130-400 K/uL Mean Platelet Volume 9.7 7.4-10.4 fL Neutrophils (%) (Auto) 81.2 % Lymphocytes (%) (Auto) 9.3 % Monocytes (%) (Auto) 6.7 % Eosinophils (%) (Auto) 2.0 % Basophils (%) (Auto) 0.6 % Neutrophils # (Auto) 6.88 1.4-6.5 K/uL Lymphocytes # (Auto) 0.79 1.2-3.4 K/uL Monocytes # (Auto) 0.57 0.11-0.59 K/uL Eosinophils # (Auto) 0.17 0-0.5 K/uL Basophils # (Auto) 0.05 0-0.2 K/uL RDW Standard Deviation 56.5 36.4-46.3 fL RDW Coefficient of Variation 19.4 11.5-14.5 % Immature Granulocyte % (Auto) 0.2 % Immature Granulocyte # (Auto) 0.02 0.00-0.02 K/uL Red Blood Cell Morphology Unremarkable Sodium Level 140 136-145 mmol/L Potassium Level 3.9 3.5-5.1 mmol/L Chloride Level 97 98-107 mmol/L Carbon Dioxide Level 34 21-32 mmol/L Anion Gap 9.0 3-11 mmol/L Blood Urea Nitrogen 50 7-18 mg/dl Creatinine 1.60 0.60-1.40 mg/dl Est Creatinine Clear Calc Drug Dose 51.3 ml/min Estimated GFR () 49.2 Estimated GFR (Non- 42.4 BUN/Creatinine Ratio 30.9 10-20 Random Glucose 146 70-99 mg/dl Calcium Level 7.8 8.5-10.1 mg/dl Magnesium Level 2.6 1.8-2.4 mg/dl Bedside Glucose 185 341 70-99 mg/dl
[2017-03-08] MEDS ORDERED: ALBUMIN HUMAN 25% 12.5 GM/50 ML VIAL IV ONE (09:48)
--- NOTE | 2017-03-08 10:47 | Cardiology Follow-Up ---
Subjective General Date of Service: Mar 08, 2017. Chief Complaint: follow-up CHF, volume overload Pt evaluation today including: conversation w/ patient History of Present Illness The patient is a 72 year old male seen in follow up. Telemetry reveals rate controlled atrial fibrillation. Patient feels well. Some blood pressure readings have been okay and some been low. He received an initial dose of Entresto yesterday 03/07/17 and had been transitioned to oral torsemide 20 mg. Per his intake and output summary he did not have any significant urine output with torsemide. His creatinine however has trended up with a BUN of 50 and a creatinine of 1.6. Allergies Coded Allergies: Lisinopril (Verified Adverse Reaction, Intermediate, COUGH, 03/05/17) Social History Smoking Status: Never Smoker Hx Tobacco Use In Past Year?: No Hx Alcohol Use - Type And Amou: No Hx Substance Use - Type And Am: No Problem List Medical Problems: (1) Atrial fibrillation Status: Chronic (2) CHF (congestive heart failure) Permanent Comment: LVEF 30-35% by echo 06/17/14 Status: Chronic (3) Elevated troponin Status: Acute (4) Heart failure Status: Acute (5) Hypoxia Status: Acute (6) Hypoxia Status: Acute (7) Pleural effusion Status: Acute Physical Exam Vital Signs Last Vital Signs Documentation Date Time Temp Pulse Resp B/P (MAP) Pulse Ox O2 Delivery O2 Flow Rate FiO2 03/08/17 08:00 Nasal Cannula 2.0 03/08/17 07:29 36.9 87 22 91/60 (70) 95 Physical Exam Constitutional: Level of Distress: acutely ill, chronically ill Neck: trachea midline Lungs: Auscultation: pertinent finding (still has decreased breath sounds in the bases but has had interval improvement) Cardiovascular: Heart Auscultation: no murmurs, irregular rate rhythm Abdomen: Bowel Sounds: pertinent finding (mild abdominal distention consistent with fluid retention) Extremities: pertinent finding (trace bilateral lower extremity edema) Assessment and Plan Assessment and Plan Impression: 72-year-old male seen in reassessment and is now more lethargic, with hypotension 1. Acute on chronic systolic heart failure, has had significant diuresis and additional fluid loss via thoracentesis. -He had an episode of systolic blood pressures in the 70 mmHg range the afternoon of 03/06/17 which had occurred after having had bilateral thoracentesis and at that time he was still on a furosemide drip. The furosemide infusion was therefore discontinued with concerns that perhaps he is intravascularly volume depleted and he received a one-time dose of normal saline 250 ML's over an hour on 03/06/2017. 2. 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 Past history of paroxysmal atrial fibrillation now persistent atrial fibrillation, rate controlled on anticoagulation with recent presumed cardioembolic stroke. Recommendations: Given his rising BUN and creatinine, I'm going to discontinue the Entresto. he has a long standing h/o ischemic cardiomyopathy with an ejection fraction of 3035% the predated his recent aortic valve intervention. He was admitted from [facility] on no beta brandi or ACEI/ ARB, I speculate this was due to difficulty with blood pressure readings being low. At this time continue torsemide 20 mg by mouth daily. However would have a low threshold for putting him back on IV diuretics to prevent aggressive fluid accumulation if necessary. It is noted that lower dose of Bumex and furosemide were ineffective, and she needs additional IV diuretic, would consider a dose of furosemide 80 mg, or resume the furosemide infusion which was started at 10 mg per hour and titrated to 15 mg per hour with good effect. I think that perhaps some visit edema is due to third spacing and he does have a low albumin. Will provide a trial of IV albumin 2 doses today to see if this helps mobilize fluid. Gabapentin dose was reduced from 300 mg TID to 100 mg TID due to its side effect of fluid retention. Continue spironolactone for now. His INR has been subtherapeutic and therefore he is on a heparin infusion as a bridge Coumadin is being reinitiated. I'm concerned that perhaps he would not tolerate the addition of Entresto from a blood pressure standpoint and would therefore consider trying him on low-dose metoprolol succinate and low-dose losartan tolerated in the future. He is not on lisinopril, and in his allergy list, it is noted that he had a past cough with this medication. Chandler catheter is to remain in place for now. Ultimately, plan to transition him back to [facility] with close outpatient follow-up at [facility]. He typically follows with Mr. Caputo. Dr. Villarreal will be assuming the service tomorrow. Laboratory Results Last 24 Hours Test 03/07/17 11:30 03/07/17 11:33 03/07/17 16:09 03/07/17 18:15 White Blood Count 7.69 K/uL Red Blood Count 3.52 M/uL Hemoglobin 8.4 g/dL Hematocrit 28.7 % Mean Corpuscular Volume 81.5 fL Mean Corpuscular Hemoglobin 23.9 pg Mean Corpuscular Hemoglobin Concent 29.3 g/dl RDW Standard Deviation 57.6 fL RDW Coefficient of Variation 19.3 % Platelet Count 194 K/uL Mean Platelet Volume 9.9 fL Prothrombin Time 16.2 SECONDS Prothromb Time International Ratio 1.5 Activated Partial Thromboplast Time 29.8 SECONDS 41.1 SECONDS Partial Thromboplastin Ratio 1.1 1.6 Bedside Glucose 217 mg/dl 216 mg/dl Test 03/07/17 20:17 03/08/17 01:40 03/08/17 05:25 03/08/17 06:41 Bedside Glucose 224 mg/dl 185 mg/dl Prothrombin Time 17.2 SECONDS Prothromb Time International Ratio 1.6 Activated Partial Thromboplast Time 61.3 SECONDS Partial Thromboplastin Ratio 2.4 White Blood Count 8.48 K/uL Red Blood Count 3.69 M/uL Hemoglobin 8.4 g/dL Hematocrit 29.3 % Mean Corpuscular Volume 79.4 fL Mean Corpuscular Hemoglobin 22.8 pg Mean Corpuscular Hemoglobin Concent 28.7 g/dl Platelet Count 197 K/uL Mean Platelet Volume 9.7 fL Neutrophils (%) (Auto) 81.2 % Lymphocytes (%) (Auto) 9.3 % Monocytes (%) (Auto) 6.7 % Eosinophils (%) (Auto) 2.0 % Basophils (%) (Auto) 0.6 % Neutrophils # (Auto) 6.88 K/uL Lymphocytes # (Auto) 0.79 K/uL Monocytes # (Auto) 0.57 K/uL Eosinophils # (Auto) 0.17 K/uL Basophils # (Auto) 0.05 K/uL RDW Standard Deviation 56.5 fL RDW Coefficient of Variation 19.4 % Immature Granulocyte % (Auto) 0.2 % Immature Granulocyte # (Auto) 0.02 K/uL Red Blood Cell Morphology Unremarkable Sodium Level 140 mmol/L Potassium Level 3.9 mmol/L Chloride Level 97 mmol/L Carbon Dioxide Level 34 mmol/L Anion Gap 9.0 mmol/L Blood Urea Nitrogen 50 mg/dl Creatinine 1.60 mg/dl Est Creatinine Clear Calc Drug Dose 51.3 ml/min Estimated GFR () 49.2 Estimated GFR (Non- 42.4 BUN/Creatinine Ratio 30.9 Random Glucose 146 mg/dl Calcium Level 7.8 mg/dl Magnesium Level 2.6 mg/dl
[2017-03-08] MEDS: ALBUMIN HUMAN 25% 12.5 GM/50 ML VIAL IV SCH ×2 (10:52→20:56)
[2017-03-08] MEDS: HEPARIN 25,000 UNIT/500ML D5W 500 ML IV PRN (10:53)
--- NOTE | 2017-03-08 14:45 | Pulmonology Progress Note ---
Pulmonary Progress Note Date of Service Mar 08, 2017. Attending Dr. Goncalves Subjective Patient notes improvement in his overall pulmonary status sentences thoracentesis. Objective Patient is doing well but able to complete full sentences sit up in bed showing no signs of acute respiratory insufficiency Vital signs: Stable on 2 L nasal cannula Respiratory: Decreased breath sounds bilaterally with mild/minimal dullness to percussion crackles appreciated globally Cardiac: S1 and S2 distant heart sounds regular rate Abdomen: Mildly distended but no rebound tenderness positive bowel sounds Extremities: 2+ pitting edema Assessment & Plan 72-year-old gentleman with recent complex cardiac history with bilateral pleural effusions: #1 bilateral pleural effusions: The pleural fluid analysis is come back as transudate of bilaterally. These are secondary to his current congestive heart failure as well as malnutrition. No further acute intervention is necessary is further pulmonary effusions. The pulmonary team will sign off thank you very much for this consultation please recontact us if necessary Data Medications: Current Inpatient Medications Medications (Trade) Dose Ordered Sig/Amy Route Start Time Stop Time Status Last Admin Dose Admin Nitroglycerin (Nitrostat Tab) 0.4 mg UD PRN SL 03/01/17 21:45 03/31/17 21:44 Insulin Aspart (novoLOG ASPART) SLIDING SCALE If C... ACHS SC 03/02/17 07:00 04/01/17 06:59 03/08/17 12:06 4 UNITS Glucose (Glucose 40% Gel) 15-30 GRAMS 15 GRAMS... UD PRN PO 03/01/17 21:45 03/31/17 21:44 Glucose (Glucose Chew Tab) 4-8 Tablets 4 Tabl... UD PRN PO 03/01/17 21:45 03/31/17 21:44 Dextrose (Dextrose 50% 50ML Syringe) 25-50ML OF 50% DW IV FOR... UD PRN IV 03/01/17 21:45 03/31/17 21:44 Glucagon (Glucagon Inj) 1 mg UD PRN SQ 03/01/17 21:45 03/31/17 21:44 Tramadol HCl (Ultram Tab) 25 mg Q6H PRN PO 03/01/17 21:45 03/31/17 21:44 Hydromorphone HCl (Dilaudid Inj) 0.5 mg Q6H PRN IV 03/01/17 21:45 03/15/17 21:44 Albuterol/ Ipratropium (Duoneb) 3 ml Q2H PRN INH 03/01/17 21:45 03/31/17 21:44 Acetaminophen (Tylenol Tab) 500 mg Q4H PRN PO 03/01/17 21:45 03/31/17 21:44 03/06/17 04:18 500 MG Amiodarone HCl (Cordarone Tab) 200 mg DAILY PO 03/02/17 09:00 04/01/17 08:59 03/08/17 08:08 200 MG Aspirin (Ecotrin Tab) 81 mg DAILY PO 03/02/17 09:00 04/01/17 08:59 03/08/17 08:10 81 MG Atorvastatin Calcium (Lipitor Tab) 80 mg DAILY PO 03/02/17 09:00 04/01/17 08:59 03/08/17 08:10 80 MG Clonazepam (Klonopin Tab) 0.25 mg BID PO 03/02/17 09:00 04/01/17 08:59 03/08/17 08:20 0.25 MG Docusate Sodium (coLACE CAP) 100 mg BID PRN PO 03/01/17 21:45 03/31/17 21:44 03/03/17 20:03 100 MG Famotidine (Pepcid Tab) 20 mg DAILY PO 03/02/17 09:00 04/01/17 08:59 03/08/17 08:10 20 MG Insulin Glargine (Lantus Solostar Pen) 5 unit DAILY SC 03/02/17 09:00 04/01/17 08:59 03/08/17 08:18 5 UNIT Magnesium Oxide (Mag-Ox Tab) 400 mg DAILY PO 03/02/17 09:00 04/01/17 08:59 03/08/17 08:10 400 MG Senna (Senokot Tab) 8.6 mg DAILY PO 03/02/17 09:00 04/01/17 08:59 03/08/17 08:12 8.6 MG Tamsulosin HCl (Flomax Cap) 0.4 mg DAILY PO 03/02/17 09:00 04/01/17 08:59 03/08/17 08:12 0.4 MG Zolpidem Tartrate (Ambien Tab) 5 mg HS PRN PO 03/01/17 21:45 03/31/17 21:44 03/08/17 00:10 5 MG Polyethylene (Miralax Powder Packet) 17 gm DAILY PO 03/02/17 09:00 04/01/17 08:59 03/08/17 08:13 17 GM Spironolactone (Aldactone Tab) 25 mg QAM PO 03/03/17 09:00 04/02/17 08:59 03/08/17 08:11 25 MG Enteral Nutritional Formula (Boost Pudding) 1 cup BIDM PO 03/04/17 16:45 04/03/17 16:44 03/08/17 08:06 1 CUP Miconazole Nitrate (Desenex Powder) 1 appln BID PRN EXT 03/05/17 13:30 04/04/17 13:29 03/06/17 04:18 1 APPLN Warfarin Sodium (Coumadin Tab) 5 mg DAILY@16 PO 03/06/17 16:00 04/05/17 15:59 03/07/17 16:27 5 MG Torsemide (Demadex Tab) 20 mg QAM PO 03/08/17 09:00 04/07/17 08:59 03/08/17 08:12 20 MG Heparin Sodium/ Dextrose 500 ml @ 22 mls/hr [id number] PRN IV 03/07/17 11:15 04/06/17 11:14 03/08/17 10:53 22 MLS/HR Gabapentin (Neurontin Cap) 100 mg TID PO 03/07/17 14:00 04/06/17 13:59 03/08/17 13:12 100 MG Albumin Human (Albumin 25%) 12.5 gm BID IV 03/08/17 10:30 03/08/17 21:01 03/08/17 10:52 12.5 GM I & O: 24-Hour Column 03/09/17 08:00 Intake Total 687 ml Output Total 175 ml Balance 512 ml Vital Signs: Date Time Temp Pulse Resp B/P (MAP) Pulse Ox O2 Delivery O2 Flow Rate FiO2 03/08/17 12:00 Nasal Cannula 2.0 03/08/17 10:55 36.5 75 20 87/44 (58) 97 Nasal Cannula 2.0 03/08/17 08:00 Nasal Cannula 2.0 03/08/17 07:29 36.9 87 22 91/60 (70) 95 Nasal Cannula 2.0 03/08/17 04:32 Nasal Cannula 2.0 Humidified Oxygen 03/08/17 03:20 36.7 81 16 115/44 (67) 100 Nasal Cannula 2.0 03/08/17 00:10 97 Nasal Cannula 2.0 Humidified Oxygen 03/07/17 23:07 37.1 80 16 108/66 (80) 99 Nasal Cannula 2.0 03/07/17 19:30 Nasal Cannula 2.0 03/07/17 19:24 37.3 60 20 109/63 (78) 98 Nasal Cannula 2.0 03/07/17 16:00 Room Air 03/07/17 15:24 37.2 92 20 111/62 (78) 97 Room Air Laboratory Results: Last 24 Hours Test 03/07/17 16:09 03/07/17 18:15 03/07/17 20:17 03/08/17 01:40 Bedside Glucose 216 mg/dl 224 mg/dl Activated Partial Thromboplast Time 41.1 SECONDS 61.3 SECONDS Partial Thromboplastin Ratio 1.6 2.4 Prothrombin Time 17.2 SECONDS Prothromb Time International Ratio 1.6 Test 03/08/17 05:25 03/08/17 06:41 03/08/17 10:54 White Blood Count 8.48 K/uL Red Blood Count 3.69 M/uL Hemoglobin 8.4 g/dL Hematocrit 29.3 % Mean Corpuscular Volume 79.4 fL Mean Corpuscular Hemoglobin 22.8 pg Mean Corpuscular Hemoglobin Concent 28.7 g/dl Platelet Count 197 K/uL Mean Platelet Volume 9.7 fL Neutrophils (%) (Auto) 81.2 % Lymphocytes (%) (Auto) 9.3 % Monocytes (%) (Auto) 6.7 % Eosinophils (%) (Auto) 2.0 % Basophils (%) (Auto) 0.6 % Neutrophils # (Auto) 6.88 K/uL Lymphocytes # (Auto) 0.79 K/uL Monocytes # (Auto) 0.57 K/uL Eosinophils # (Auto) 0.17 K/uL Basophils # (Auto) 0.05 K/uL RDW Standard Deviation 56.5 fL RDW Coefficient of Variation 19.4 % Immature Granulocyte % (Auto) 0.2 % Immature Granulocyte # (Auto) 0.02 K/uL Red Blood Cell Morphology Unremarkable Sodium Level 140 mmol/L Potassium Level 3.9 mmol/L Chloride Level 97 mmol/L Carbon Dioxide Level 34 mmol/L Anion Gap 9.0 mmol/L Blood Urea Nitrogen 50 mg/dl Creatinine 1.60 mg/dl Est Creatinine Clear Calc Drug Dose 51.3 ml/min Estimated GFR () 49.2 Estimated GFR (Non- 42.4 BUN/Creatinine Ratio 30.9 Random Glucose 146 mg/dl Calcium Level 7.8 mg/dl Magnesium Level 2.6 mg/dl Bedside Glucose 185 mg/dl 341 mg/dl
[2017-03-08] MEDS: WARFARIN SOD 5 MG TAB PO SCH (16:14)
[2017-03-09] VITALS (8 sets, daily range): BP systolic 81–131; BP diastolic 37–72; PULSE 75–89; TEMP 36.4–37; O2SAT 95–98
[2017-03-09] MEDS: ZOLPIDEM TARTRATE 5 MG TAB PO PRN ×2 (00:35→22:45)
[2017-03-09 06:02] LABS: HEMATOCRIT 28.3 % (42-52); MEAN CELL VOLUME 79.1 fL (80-100); MEAN CORPUSCULAR HEMOGLOBIN 22.6 pg (25-34); MEAN CORPUSCULAR HGB CONC 28.6 g/dl (32-36); MEAN PLATELET VOLUME 10.4 fL (7.4-10.4); PLATELET COUNT 196 K/uL (130-400); RED BLOOD COUNT 3.58 M/uL (4.7-6.1); WHITE BLOOD COUNT 9.61 K/uL (4.8-10.8)
[2017-03-09 06:16] LABS: INR 1.7 (0.9-1.1); PARTIAL THROMBOPLASTIN RATIO 1.9; PROTHROMBIN TIME (PATIENT) 18.7 SECONDS (9.0-12.0)
[2017-03-09 06:32] LABS: CALCIUM 7.6 mg/dl (8.5-10.1); CREATININE 1.8 mg/dl (0.60-1.40); MAGNESIUM 2.7 mg/dl (1.8-2.4); POTASSIUM 4.1 mmol/L (3.5-5.1)
[2017-03-09] MEDS: INSULIN ASPART 100 UNITS/ML 3 ML PEN SC SCH ×4 (07:00→20:57)
[2017-03-09] MEDS: ATORVASTATIN 40 MG TAB PO SCH (08:04)
[2017-03-09] MEDS: GABAPENTIN 100 MG CAP PO SCH ×3 (08:04→20:03)
[2017-03-09] MEDS: ASPIRIN 81 MG ECTAB PO SCH (08:04)
[2017-03-09] MEDS: BOOST VANILLA PUDDING CUP PO SCH ×2 (08:04→16:45)
[2017-03-09] MEDS: AMIODARONE 200 MG TAB PO SCH (08:05)
[2017-03-09] MEDS: MAGNESIUM OXIDE 400 MG TAB PO SCH (08:05)
[2017-03-09] MEDS: TAMSULOSIN HCL 0.4 MG CAP PO SCH (08:05)
[2017-03-09] MEDS: TORSEMIDE 20 MG TAB PO SCH (08:05)
[2017-03-09] MEDS: SENNA 8.6 MG TAB PO SCH (08:05)
[2017-03-09] MEDS: POLYETHYLENE (MIRALAX) 17 GM PACK PO SCH (08:05)
[2017-03-09] MEDS: FAMOTIDINE 20 MG TAB PO SCH (08:06)
[2017-03-09] MEDS: SPIRONOLACTONE 25 MG TAB PO SCH (08:06)
[2017-03-09] MEDS: CLONAZEPAM 0.5 MG TAB PO SCH ×2 (08:08→22:44)
[2017-03-09] MEDS: INSULIN GLARGINE SOLOSTAR 100 UNITS/ML 3 ML PEN SC SCH (08:14)
--- NOTE | 2017-03-09 08:20 | Progress Note ---
Internal Med Progress Note Date of Service: Mar 09, 2017. Provider Documentation: SUBJECTIVE: Seen and examined at bedside. More alert, awake today. Reports SOB on exertion. Requires oxygen to maintain sats. Reports intermittent mild cough. Offers no new complaints. OBJECTIVE: Vital Signs-as noted below Physical Exam: General Appearance:Moderately built and nourished, no apparent distress Head: normocephalic, Atraumatic Eyes: normal inspection, EOMI, PERRL Neck: supple, Trachea midline Respiratory/Chest: Decreased breath sounds. CTA Cardiovascular: Irregularly Irregular, No murmur Abdomen/GI:Soft, Non tender, Bowel sounds present Extremities/Musculoskelatal:normal inspection, + B/L 2+ edema Neurologic/Psych:AAOX3, grossly no focal neurological deficits Skin: normal color, warm Lab data as noted below. ASSESSMENT & PLAN: Acute on Chronic Systolic CHF: H/O ISCHEMIC CARDIOMYOPATHY Patient presented with worsening SOB, orthopnea, pedal edema, weight gain. H/O recent TAVR with complications: Sternotomy, fistula from aorta to left atrium, mitral valve repair at [facility] on 01/22/17, was discharged to rehab on 02/05/17 S/P IV Bumex in ED S/P IV Lasix drip at 15 mg/hour:discontinued on 03/06/17 Monitor Renal function, electrolytes Work up: Troponin - 0.04, 0.05, ECHO: moderate LV systolic dysfunction (EF 30-35 %) similar to his preoperative ejection fraction and normal prosthetic aortic valve function. Appreciate Cardiology and Pulm help S/P R thoracentesis on 03/05/17 Torsemide 20 mg daily and Entresto started on 03/07/17 Neurontin dose decreased to 100mg TID from 300mg TID (as can cause fluid retention) Cr increased to 1.8 today: Discontinued Entresto. Continue Torsemide, Aldactone Clinically still volume overloaded. Monitor Cr levels closely: may need to hold diuretics if Cr continues to worsen S/P Albumin 2 doses on 03/08/17. Will give 1 more dose of albumin today. Requires 2 step prior to DC RECENT TRANSCATHETER AORTIC VALVE REPLACEMENT WITH COMPLICATIONS- Sternotomy, fistula from aorta to left atrium, mitral valve repair at [facility] on 01/22/17, was discharged to rehab on 02/05/17 ATRIAL FIBRILLATION Continue amiodarone 200 mg daily Monitor INR: 1.7 today Continue Coumadin 5mg today Continue Heparin ggt till INR is therapeutic. CHRONIC ANEMIA Hb at baseline DM II IDDM WITH HYPOGLYCEMIC EPISODES ISS, Accu checks DVT PX On Coumadin DISPOSITION Continue with tele monitoring PT/OT Plan to discharge to [facility] once medically stable. Criminology Professor consulted Vital Signs: Date Time Temp Pulse Resp B/P (MAP) Pulse Ox O2 Delivery O2 Flow Rate FiO2 03/09/17 08:03 36.7 86 18 81/37 (52) 97 Nasal Cannula 03/09/17 04:00 Nasal Cannula 2.0 03/09/17 03:39 36.8 78 18 100/43 (62) 95 2.0 03/09/17 00:20 121/72 (88) 03/09/17 00:01 Nasal Cannula 2.0 03/08/17 23:27 37.2 90 18 84/37 (53) 94 Nasal Cannula 2.0 03/08/17 20:00 Nasal Cannula 2.0 03/08/17 19:50 37.3 80 20 104/53 (70) 96 Nasal Cannula 2.0 03/08/17 16:00 Nasal Cannula 2.0 03/08/17 15:35 36.4 103 22 93/62 (72) 99 Nasal Cannula 2.0 03/08/17 12:00 Nasal Cannula 2.0 03/08/17 10:55 36.5 75 20 87/44 (58) 97 Nasal Cannula 2.0 Lab Results: Results Past 24 Hours Test 03/08/17 10:54 03/08/17 16:13 03/08/17 20:14 03/09/17 05:33 Range/Units Bedside Glucose 341 167 179 70-99 mg/dl White Blood Count 9.61 4.8-10.8 K/uL Red Blood Count 3.58 4.7-6.1 M/uL Hemoglobin 8.1 14.0-18.0 g/dL Hematocrit 28.3 42-52 % Mean Corpuscular Volume 79.1 80-100 fL Mean Corpuscular Hemoglobin 22.6 25-34 pg Mean Corpuscular Hemoglobin Concent 28.6 32-36 g/dl RDW Standard Deviation 56.0 36.4-46.3 fL RDW Coefficient of Variation 19.3 11.5-14.5 % Platelet Count 196 130-400 K/uL Mean Platelet Volume 10.4 7.4-10.4 fL Prothrombin Time 18.7 9.0-12.0 SECONDS Prothromb Time International Ratio 1.7 0.9-1.1 Activated Partial Thromboplast Time 48.7 21.0-31.0 SECONDS Partial Thromboplastin Ratio 1.9 Sodium Level 138 136-145 mmol/L Potassium Level 4.1 3.5-5.1 mmol/L Chloride Level 96 98-107 mmol/L Carbon Dioxide Level 33 21-32 mmol/L Anion Gap 9.0 3-11 mmol/L Blood Urea Nitrogen 56 7-18 mg/dl Creatinine 1.80 0.60-1.40 mg/dl Est Creatinine Clear Calc Drug Dose 45.7 ml/min Estimated GFR () 42.6 Estimated GFR (Non- 36.8 BUN/Creatinine Ratio 31.0 10-20 Random Glucose 139 70-99 mg/dl Calcium Level 7.6 8.5-10.1 mg/dl Magnesium Level 2.7 1.8-2.4 mg/dl Test 03/09/17 06:59 Range/Units Bedside Glucose 179 70-99 mg/dl
[2017-03-09] MEDS ORDERED: ALBUMIN HUMAN 25% 12.5 GM/50 ML VIAL IV SCH (09:00)
[2017-03-09] MEDS ORDERED: ALBUMIN 25% 50 ML with FUROSEMIDE INJ 40 MG IV ONE ×2 (09:30)
--- NOTE | 2017-03-09 11:01 | Cardiology Follow-Up ---
Subjective General Date of Service: Mar 09, 2017. Chief Complaint: follow-up CHF, volume overload Pt evaluation today including: conversation w/ patient, physical exam, chart review, lab review, review of studies, review of inpatient medication list History of Present Illness The patient is a 72 year old male seen in follow-up. Denies chest discomfort. More short of breath after sponge bath by nursing. Heart rate remains controlled on telemetry. Receive dose of intravenous furosemide and albumin this morning. Lower extremity edema mildly improved. No other concerns overnight per nursing staff Allergies Coded Allergies: Lisinopril (Verified Adverse Reaction, Intermediate, COUGH, 03/05/17) Social History Smoking Status: Never Smoker Hx Tobacco Use In Past Year?: No Hx Alcohol Use - Type And Amou: No Hx Substance Use - Type And Am: No Problem List Medical Problems: (1) Atrial fibrillation Status: Chronic (2) CHF (congestive heart failure) Permanent Comment: LVEF 30-35% by echo 06/17/14 Status: Chronic (3) Elevated troponin Status: Acute (4) Heart failure Status: Acute (5) Hypoxia Status: Acute (6) Hypoxia Status: Acute (7) Pleural effusion Status: Acute Review of Systems Respiratory: + shortness of breath, + dyspnea on exertion, No cough, No sputum , No wheezing, No dyspnea at rest, No hemoptysis Cardiac: + edema, No chest pain, No orthopnea, No PND, No claudication, No palpitations Physical Exam Vital Signs Last Vital Signs Documentation Date Time Temp Pulse Resp B/P (MAP) Pulse Ox O2 Delivery O2 Flow Rate FiO2 03/09/17 08:04 Nasal Cannula 2.0 03/09/17 08:03 36.7 86 18 81/37 (52) 97 Physical Exam Constitutional: General Apperance: overweight Level of Distress: acutely ill, chronically ill Neck: trachea midline Lungs: Auscultation: pertinent finding ( decreased breath sounds in the bases ) Cardiovascular: Heart Auscultation: no murmurs, irregular rate rhythm Peripheral Pulses: Radial Pulse: normal on the right Abdomen: Bowel Sounds: normal, pertinent finding (mild abdominal distention) Inspection & Palpation: no tenderness, guarding & rebound Extremities: no clubbing, no ulcers, pertinent finding (2+bilateral lower extremity edema) Neurologic: Gait & Station: pertinent finding (no focal motor deficit) Cranial Nerves: grossly intact Assessment and Plan Assessment and Plan Imp: 1. Acute on chronic systolic heart failure, has had significant diuresis and additional fluid loss via thoracentesis. 2. 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 Paroxysmal now persistent atrial fibrillation - rate controlled on anticoagulation with recent presumed cardioembolic stroke. 4. Chronic asymptomatic hypotension. 5. MARISA on CKD Recommendations: Patient received 3 doses of albumin since yesterday. He also received an additional dose of intravenous furosemide in addition to oral torsemide this a.m. Will monitor output over the next few hours. Would hold on additional diuretic therapy his evening given continued rise in serum creatinine. May consider additional dose of albumin and Lasix in a.m. pending review of a.m. labs. Continue oral torsemide as previously ordered. We'll not add metoprolol or ARB today with continued asymptomatic hypotension. Patient recently failed trial of Entresto due to hypotension. Will continue to follow during hospitalization. Laboratory Results Last 24 Hours Test 03/08/17 16:13 03/08/17 20:14 03/09/17 05:33 03/09/17 06:59 Bedside Glucose 167 mg/dl 179 mg/dl 179 mg/dl White Blood Count 9.61 K/uL Red Blood Count 3.58 M/uL Hemoglobin 8.1 g/dL Hematocrit 28.3 % Mean Corpuscular Volume 79.1 fL Mean Corpuscular Hemoglobin 22.6 pg Mean Corpuscular Hemoglobin Concent 28.6 g/dl RDW Standard Deviation 56.0 fL RDW Coefficient of Variation 19.3 % Platelet Count 196 K/uL Mean Platelet Volume 10.4 fL Prothrombin Time 18.7 SECONDS Prothromb Time International Ratio 1.7 Activated Partial Thromboplast Time 48.7 SECONDS Partial Thromboplastin Ratio 1.9 Sodium Level 138 mmol/L Potassium Level 4.1 mmol/L Chloride Level 96 mmol/L Carbon Dioxide Level 33 mmol/L Anion Gap 9.0 mmol/L Blood Urea Nitrogen 56 mg/dl Creatinine 1.80 mg/dl Est Creatinine Clear Calc Drug Dose 45.7 ml/min Estimated GFR () 42.6 Estimated GFR (Non- 36.8 BUN/Creatinine Ratio 31.0 Random Glucose 139 mg/dl Calcium Level 7.6 mg/dl Magnesium Level 2.7 mg/dl
[2017-03-09] MEDS: HEPARIN 25,000 UNIT/500ML D5W 500 ML IV PRN (13:00)
[2017-03-09] MEDS: WARFARIN SOD 5 MG TAB PO SCH (17:04)
[2017-03-10] VITALS (9 sets, daily range): BP systolic 102–191; BP diastolic 45–73; PULSE 81–90; TEMP 36.8–37; O2SAT 92–97
[2017-03-10 06:12] LABS: INR 1.7 (0.9-1.1); PARTIAL THROMBOPLASTIN RATIO 1.8; PROTHROMBIN TIME (PATIENT) 18.8 SECONDS (9.0-12.0)
[2017-03-10 06:21] LABS: CREATININE 1.9 mg/dl (0.60-1.40); MAGNESIUM 2.8 mg/dl (1.8-2.4); POTASSIUM 4.3 mmol/L (3.5-5.1)
[2017-03-10] MEDS: INSULIN ASPART 100 UNITS/ML 3 ML PEN SC SCH ×4 (07:00→20:49)
[2017-03-10] MEDS: BOOST VANILLA PUDDING CUP PO SCH ×2 (07:30→16:44)
[2017-03-10] MEDS ORDERED: HEPARIN IV BOLUS 3,000 UNIT in SYRINGE 0 ML IV ONE (07:45)
[2017-03-10] MEDS: SPIRONOLACTONE 25 MG TAB PO SCH (08:10)
--- NOTE | 2017-03-10 08:13 | Progress Note ---
Internal Med Progress Note Date of Service: Mar 10, 2017. Provider Documentation: SUBJECTIVE: Seen and examined at bedside. Feels better today. Reports intermittent cough. Denies SOB, chest pain. Offers no new complaints. OBJECTIVE: Vital Signs-as noted below Physical Exam: General Appearance:Moderately built and nourished, no apparent distress Head: normocephalic, Atraumatic Eyes: normal inspection, EOMI, PERRL Neck: supple, Trachea midline Respiratory/Chest: Decreased breath sounds. CTA Cardiovascular: Irregularly Irregular, No murmur Abdomen/GI:Soft, Non tender, Bowel sounds present Extremities/Musculoskelatal:normal inspection, + B/L 2+ edema Neurologic/Psych:AAOX3, grossly no focal neurological deficits Skin: normal color, warm Lab data as noted below. ASSESSMENT & PLAN: Acute on Chronic Systolic CHF: H/O ISCHEMIC CARDIOMYOPATHY Patient presented with worsening SOB, orthopnea, pedal edema, weight gain. 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 Appreciate Cardiology and Pulm help S/P R thoracentesis on 03/05/17 Continue Torsemide 20 mg daily and Entresto discontinued secondary to worsening renal function Neurontin dose decreased to 100mg TID from 300mg TID (as can cause fluid retention) Cr: 1.9 today. Monitor renal function Clinically still volume overloaded. 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 CHRONIC ANEMIA Hb at baseline DM II IDDM WITH HYPOGLYCEMIC EPISODES ISS, Accu checks DVT PX On Coumadin DISPOSITION Continue with tele monitoring PT/OT Plan to discharge to [facility] once medically stable. Photographic Intelligence Officer consulted Vital Signs: Date Time Temp Pulse Resp B/P (MAP) Pulse Ox O2 Delivery O2 Flow Rate FiO2 03/10/17 07:40 37.0 81 22 122/66 (84) 97 Nasal Cannula 2.0 03/10/17 04:08 95 Nasal Cannula 2.0 03/10/17 03:38 36.8 84 20 128/66 (86) 96 Nasal Cannula 2.0 03/10/17 00:05 95 Nasal Cannula 2.0 03/09/17 23:46 36.9 85 18 131/72 (91) 97 Nasal Cannula 2.0 03/09/17 20:00 95 Nasal Cannula 2.0 03/09/17 19:53 37.0 89 18 84/44 (57) 95 Nasal Cannula 2.0 03/09/17 16:03 Nasal Cannula 2.0 03/09/17 15:12 36.4 75 18 82/66 (71) 96 Nasal Cannula 2.0 03/09/17 12:24 36.8 76 20 89/61 (70) 98 Nasal Cannula 2.0 03/09/17 12:03 Nasal Cannula 2.0 Lab Results: Results Past 24 Hours Test 03/09/17 10:46 03/09/17 16:29 03/09/17 20:22 03/10/17 05:21 Range/Units Bedside Glucose 251 212 203 70-99 mg/dl Prothrombin Time 18.8 9.0-12.0 SECONDS Prothromb Time International Ratio 1.7 0.9-1.1 Activated Partial Thromboplast Time 46.2 21.0-31.0 SECONDS Partial Thromboplastin Ratio 1.8 Sodium Level 137 136-145 mmol/L Potassium Level 4.3 3.5-5.1 mmol/L Chloride Level 96 98-107 mmol/L Carbon Dioxide Level 33 21-32 mmol/L Anion Gap 8.0 3-11 mmol/L Blood Urea Nitrogen 59 7-18 mg/dl Creatinine 1.90 0.60-1.40 mg/dl Est Creatinine Clear Calc Drug Dose 43.4 ml/min Estimated GFR () 39.9 Estimated GFR (Non- 34.5 BUN/Creatinine Ratio 31.0 10-20 Random Glucose 147 70-99 mg/dl Calcium Level 8.0 8.5-10.1 mg/dl Magnesium Level 2.8 1.8-2.4 mg/dl Albumin 2.2 3.4-5.0 gm/dl Test 03/10/17 06:25 Range/Units Bedside Glucose 178 70-99 mg/dl
[2017-03-10] MEDS: AMIODARONE 200 MG TAB PO SCH (08:14)
[2017-03-10] MEDS: ASPIRIN 81 MG ECTAB PO SCH (08:15)
[2017-03-10] MEDS: ATORVASTATIN 40 MG TAB PO SCH (08:15)
[2017-03-10] MEDS: TORSEMIDE 20 MG TAB PO SCH (08:15)
[2017-03-10] MEDS: TAMSULOSIN HCL 0.4 MG CAP PO SCH (08:15)
[2017-03-10] MEDS: POLYETHYLENE (MIRALAX) 17 GM PACK PO SCH (08:15)
[2017-03-10] MEDS: MAGNESIUM OXIDE 400 MG TAB PO SCH (08:17)
[2017-03-10] MEDS: GABAPENTIN 100 MG CAP PO SCH ×3 (08:17→19:35)
[2017-03-10] MEDS: FAMOTIDINE 20 MG TAB PO SCH (08:17)
[2017-03-10] MEDS: SENNA 8.6 MG TAB PO SCH (08:18)
[2017-03-10] MEDS: INSULIN GLARGINE SOLOSTAR 100 UNITS/ML 3 ML PEN SC SCH (08:19)
[2017-03-10] MEDS: CLONAZEPAM 0.5 MG TAB PO SCH ×2 (09:23→23:57)
--- NOTE | 2017-03-10 12:41 | Cardiology Follow-Up ---
Subjective General Date of Service: Mar 10, 2017. Chief Complaint: follow-up CHF, volume overload Pt evaluation today including: conversation w/ patient, physical exam, chart review, lab review, review of studies, review of inpatient medication list History of Present Illness The patient is a 72 year old male seen in follow-up. Denies chest discomfort. Less SOB today. Heart rate remains controlled on telemetry. Creatinine trending upward. Lower extremity edema unchanged. No other concerns overnight per nursing staff Patient OOB in chair at bedside. Allergies Coded Allergies: Lisinopril (Verified Adverse Reaction, Intermediate, COUGH, 03/05/17) Social History Smoking Status: Never Smoker Hx Tobacco Use In Past Year?: No Hx Alcohol Use - Type And Amou: No Hx Substance Use - Type And Am: No Problem List Medical Problems: (1) Atrial fibrillation Status: Chronic (2) CHF (congestive heart failure) Permanent Comment: LVEF 30-35% by echo 06/17/14 Status: Chronic (3) Elevated troponin Status: Acute (4) Heart failure Status: Acute (5) Hypoxia Status: Acute (6) Hypoxia Status: Acute (7) Pleural effusion Status: Acute Review of Systems Respiratory: + shortness of breath, + dyspnea on exertion, No cough, No sputum , No dyspnea at rest, No hemoptysis Cardiac: + edema, No chest pain, No orthopnea, No PND, No claudication, No palpitations Physical Exam Vital Signs Last Vital Signs Documentation Date Time Temp Pulse Resp B/P (MAP) Pulse Ox O2 Delivery O2 Flow Rate FiO2 03/10/17 12:03 Nasal Cannula 2.0 03/10/17 11:41 36.9 90 22 191/73 (112) 94 Physical Exam Constitutional: General Apperance: overweight Level of Distress: acutely ill, chronically ill Head: normocephalic ENMT: normal ENT inspection Neck: trachea midline Lungs: Auscultation: pertinent finding ( decreased breath sounds in the bases ) Cardiovascular: Heart Auscultation: no murmurs, irregular rate rhythm Peripheral Pulses: Radial Pulse: normal on the right Abdomen: Bowel Sounds: normal, pertinent finding (mild abdominal distention) Inspection & Palpation: no tenderness, guarding & rebound Extremities: no clubbing, no ulcers, pertinent finding (2+bilateral lower extremity edema) Neurologic: Gait & Station: pertinent finding (no focal motor deficit) Cranial Nerves: grossly intact Assessment and Plan Assessment and Plan Imp: 1. Acute on chronic systolic heart failure with decline in renal function - patient improved, however, remains volume overloaded. 2. 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 Paroxysmal now persistent atrial fibrillation - rate controlled on anticoagulation with recent presumed cardioembolic stroke. 4. Chronic asymptomatic hypotension - resolved 5. MARISA on CKD - creatinine trending upward. Recommendations: Will not add additional diuretic this evening. Monitor urine output overnight and reassess renal function in AM. May consider additional dose of albumin and Lasix in a.m. pending review of repeat BMP. Continue oral torsemide and aldactone as previously ordered. Will continue to follow. Laboratory Results Last 24 Hours Test 03/09/17 16:29 03/09/17 20:22 03/10/17 05:21 03/10/17 06:25 Bedside Glucose 212 mg/dl 203 mg/dl 178 mg/dl Prothrombin Time 18.8 SECONDS Prothromb Time International Ratio 1.7 Activated Partial Thromboplast Time 46.2 SECONDS Partial Thromboplastin Ratio 1.8 Sodium Level 137 mmol/L Potassium Level 4.3 mmol/L Chloride Level 96 mmol/L Carbon Dioxide Level 33 mmol/L Anion Gap 8.0 mmol/L Blood Urea Nitrogen 59 mg/dl Creatinine 1.90 mg/dl Est Creatinine Clear Calc Drug Dose 43.4 ml/min Estimated GFR () 39.9 Estimated GFR (Non- 34.5 BUN/Creatinine Ratio 31.0 Random Glucose 147 mg/dl Calcium Level 8.0 mg/dl Magnesium Level 2.8 mg/dl Albumin 2.2 gm/dl Test 03/10/17 11:00 Bedside Glucose 210 mg/dl
[2017-03-10] MEDS: HEPARIN 25,000 UNIT/500ML D5W 500 ML IV PRN (15:11)
[2017-03-10 16:27] LABS: PARTIAL THROMBOPLASTIN RATIO 1.9
[2017-03-10] MEDS: WARFARIN SOD 5 MG TAB PO SCH (16:44)
[2017-03-10] MEDS: ZOLPIDEM TARTRATE 5 MG TAB PO PRN (23:57)
[2017-03-11] VITALS (11 sets, daily range): BP systolic 95–136; BP diastolic 52–74; PULSE 81–86; TEMP 36.7–37.3; O2SAT 95–97
[2017-03-11 06:44] LABS: HEMATOCRIT 28.1 % (42-52); MEAN CELL VOLUME 78.9 fL (80-100); MEAN CORPUSCULAR HEMOGLOBIN 23.3 pg (25-34); MEAN CORPUSCULAR HGB CONC 29.5 g/dl (32-36); MEAN PLATELET VOLUME 11.2 fL (7.4-10.4); PLATELET COUNT 193 K/uL (130-400); RED BLOOD COUNT 3.56 M/uL (4.7-6.1); WHITE BLOOD COUNT 7.69 K/uL (4.8-10.8)
[2017-03-11 06:52] LABS: INR 1.9 (0.9-1.1); PARTIAL THROMBOPLASTIN RATIO 1.7; PROTHROMBIN TIME (PATIENT) 20.5 SECONDS (9.0-12.0)
[2017-03-11] MEDS: INSULIN ASPART 100 UNITS/ML 3 ML PEN SC SCH ×4 (07:00→21:01)
[2017-03-11 07:11] LABS: BUN/CREATININE RATIO 32.3 (10-20); CREATININE 1.8 mg/dl (0.60-1.40); POTASSIUM 4.3 mmol/L (3.5-5.1)
[2017-03-11] MEDS: SPIRONOLACTONE 25 MG TAB PO SCH (07:20)
[2017-03-11] MEDS: BOOST VANILLA PUDDING CUP PO SCH ×2 (07:20→16:55)
[2017-03-11] MEDS: AMIODARONE 200 MG TAB PO SCH (07:21)
[2017-03-11] MEDS: ASPIRIN 81 MG ECTAB PO SCH (07:21)
[2017-03-11] MEDS: CLONAZEPAM 0.5 MG TAB PO SCH ×2 (07:21→23:58)
[2017-03-11] MEDS: TORSEMIDE 20 MG TAB PO SCH (07:21)
[2017-03-11] MEDS: TAMSULOSIN HCL 0.4 MG CAP PO SCH (07:21)
[2017-03-11] MEDS: MAGNESIUM OXIDE 400 MG TAB PO SCH (07:21)
[2017-03-11] MEDS: ATORVASTATIN 40 MG TAB PO SCH (07:21)
[2017-03-11] MEDS: SENNA 8.6 MG TAB PO SCH (07:22)
[2017-03-11] MEDS: GABAPENTIN 100 MG CAP PO SCH ×2 (07:22→20:58)
[2017-03-11] MEDS: POLYETHYLENE (MIRALAX) 17 GM PACK PO SCH (07:22)
[2017-03-11] MEDS: FAMOTIDINE 20 MG TAB PO SCH (07:22)
[2017-03-11] MEDS ORDERED: HEPARIN IV BOLUS 3,000 UNIT in SYRINGE 0 ML IV ONE (07:30)
[2017-03-11] MEDS: INSULIN GLARGINE SOLOSTAR 100 UNITS/ML 3 ML PEN SC SCH (07:37)
--- NOTE | 2017-03-11 07:38 | DIAGNOSTIC IMAGING REPORT ---
CHEST ONE VIEW PORTABLE CLINICAL HISTORY: cough dyspnea COMPARISON STUDY: 03/06/2017 FINDINGS: Moderate stable cardia megaly. Findings of congestive failure. Radiographic findings of mildly progressive from the prior study. IMPRESSION: Congestive failure mildly progressive compared to the prior exam. Electronically signed by: Kenneth Ortiz M.D. 03/11/2017 7:37 AM Dictated Date/Time: 03/11/2017 7:31 AM
--- NOTE | 2017-03-11 08:43 | Progress Note ---
Internal Med Progress Note Date of Service: Mar 11, 2017. Provider Documentation: SUBJECTIVE: Seen and examined at bedside. Reports cough is improving. Still has bilateral LE edema. Repeat CXR showed mild progression of CHF Denies SOB, chest pain. Offers no new complaints. Requires 2L of oxygen to maintain sats. OBJECTIVE: Vital Signs-as noted below Physical Exam: General Appearance:Moderately built and nourished, no apparent distress Head: normocephalic, Atraumatic Eyes: normal inspection, EOMI, PERRL Neck: supple, Trachea midline Respiratory/Chest: Decreased breath sounds. CTA Cardiovascular: Irregularly Irregular, No murmur Abdomen/GI:Soft, Non tender, Bowel sounds present Extremities/Musculoskelatal:normal inspection, + B/L 2+ edema Neurologic/Psych:AAOX3, grossly no focal neurological deficits Skin: normal color, warm Lab data as noted below. ASSESSMENT & PLAN: Acute on Chronic Systolic CHF: H/O ISCHEMIC CARDIOMYOPATHY Patient presented with worsening SOB, orthopnea, pedal edema, weight gain. 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 Appreciate Cardiology and Pulm help S/P R thoracentesis on 03/05/17 Discontinued PO Torsemide and Entresto secondary to worsening renal function Neurontin dose decreased to 100mg TID from 300mg TID >>>> then discontinued (as can cause fluid retention) Cr: 1.8 today. Monitor renal function S/P Albumin 2 doses on and 1 dose 03/09 Clinically still volume overloaded. Will give a dose of albumin with lasix today My need 2 step prior to DC Repeat CXR: Mild progression of CHF Continue Incentive Spirometry Switched to lasix 40mg BID today. 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 CHRONIC ANEMIA Hb at baseline DM II IDDM WITH HYPOGLYCEMIC EPISODES ISS, Accu checks DVT PX On Coumadin DISPOSITION Continue with tele monitoring PT/OT Pt accepted to [place] for rehab. Collar Feller consulted Vital Signs: Date Time Temp Pulse Resp B/P (MAP) Pulse Ox O2 Delivery O2 Flow Rate FiO2 03/11/17 12:16 95 Nasal Cannula 2.0 03/11/17 11:46 36.9 81 20 104/52 (69) 96 03/11/17 08:03 36.9 86 20 95/55 (68) 95 Nasal Cannula 2.0 03/11/17 08:01 95 Nasal Cannula 2.0 03/11/17 04:12 95 Nasal Cannula 2.0 03/11/17 03:51 36.7 84 18 108/56 (73) 96 Nasal Cannula 2.0 03/11/17 00:11 95 Nasal Cannula 2.0 03/10/17 23:47 36.8 86 18 102/45 (64) 92 Room Air 03/10/17 20:24 95 Nasal Cannula 2.0 03/10/17 19:31 36.9 88 18 132/69 (90) 93 03/10/17 16:09 36.9 84 18 129/68 (88) 93 03/10/17 16:03 Nasal Cannula 2.0 Lab Results: Results Past 24 Hours Test 03/10/17 15:56 03/10/17 16:23 03/10/17 20:15 03/11/17 05:50 Range/Units Activated Partial Thromboplast Time 49.3 44.3 21.0-31.0 SECONDS Partial Thromboplastin Ratio 1.9 1.7 Bedside Glucose 205 236 70-99 mg/dl White Blood Count 7.69 4.8-10.8 K/uL Red Blood Count 3.56 4.7-6.1 M/uL Hemoglobin 8.3 14.0-18.0 g/dL Hematocrit 28.1 42-52 % Mean Corpuscular Volume 78.9 80-100 fL Mean Corpuscular Hemoglobin 23.3 25-34 pg Mean Corpuscular Hemoglobin Concent 29.5 32-36 g/dl RDW Standard Deviation 56.9 36.4-46.3 fL RDW Coefficient of Variation 19.5 11.5-14.5 % Platelet Count 193 130-400 K/uL Mean Platelet Volume 11.2 7.4-10.4 fL Prothrombin Time 20.5 9.0-12.0 SECONDS Prothromb Time International Ratio 1.9 0.9-1.1 Sodium Level 138 136-145 mmol/L Potassium Level 4.3 3.5-5.1 mmol/L Chloride Level 97 98-107 mmol/L Carbon Dioxide Level 33 21-32 mmol/L Anion Gap 8.0 3-11 mmol/L Blood Urea Nitrogen 58 7-18 mg/dl Creatinine 1.80 0.60-1.40 mg/dl Est Creatinine Clear Calc Drug Dose 46.0 ml/min Estimated GFR () 42.6 Estimated GFR (Non- 36.8 BUN/Creatinine Ratio 32.3 10-20 Random Glucose 150 70-99 mg/dl Calcium Level 8.0 8.5-10.1 mg/dl Test 03/11/17 07:30 03/11/17 11:07 03/11/17 14:00 Range/Units Bedside Glucose 179 214 70-99 mg/dl Activated Partial Thromboplast Time 66.1 21.0-31.0 SECONDS Partial Thromboplastin Ratio 2.5
[2017-03-11] MEDS ORDERED: ALBUMIN 25% 50 ML with FUROSEMIDE INJ 40 MG IV ONE ×2 (09:30)
--- NOTE | 2017-03-11 09:42 | Cardiology Follow-Up ---
Subjective General Date of Service: Mar 11, 2017. Chief Complaint: follow-up CHF, volume overload Pt evaluation today including: conversation w/ patient, physical exam, chart review, lab review, review of studies, review of inpatient medication list History of Present Illness Patient seen and examined. Generalized weakness, fatigued. Stable dyspnea. No chest pain. No palpitations. Telemetry: Chronic atrial fibrillation. Current heart rate is in the 80's. PVC' s in singles, rare couples. No bradyarrhythmias or pauses. Creatinine Clearance estimate by Cockcroft-Gault equation (72 y/o M, Cr 1.8, Wt 113 kg) is 59 mL/min March 02, 2017 TTE Interpretation Summary ([facility], as per Dr. Diaz): There is a septal, anterolateral and apical wall motion abnormality with akinesis of the segments. The remaining left ventricular wall segments are mildly hypokinetic. Left ventricular systolic function is moderately reduced. The LV Ejection Fraction = 30-35%. The right ventricle is not well visualized. The right ventricular systolic function is grossly normal. The left atrium is severely dilated. There is severe mitral annular calcification. There is trace mitral regurgitation. There is mild tricuspid regurgitation. Mild pulmonary hypertension is present. The PA systolic pressure is calculated to be 47 mm Hg. There is a prosthetic aortic valve. There is no significant aortic regurgitation. No hemodynamically significant valvular aortic stenosis. Allergies Coded Allergies: Lisinopril (Verified Adverse Reaction, Intermediate, COUGH, 03/05/17) Social History Smoking Status: Never Smoker Hx Tobacco Use In Past Year?: No Hx Alcohol Use - Type And Amou: No Hx Substance Use - Type And Am: No Problem List Medical Problems: (1) Atrial fibrillation Status: Chronic (2) CHF (congestive heart failure) Permanent Comment: LVEF 30-35% by echo 06/17/14 Status: Chronic (3) Elevated troponin Status: Acute (4) Heart failure Status: Acute (5) Hypoxia Status: Acute (6) Hypoxia Status: Acute (7) Pleural effusion Status: Acute Review of Systems Respiratory: + shortness of breath, + dyspnea on exertion, No cough, No dyspnea at rest Cardiac: + edema, No chest pain, No orthopnea, No PND, No claudication, No palpitations Physical Exam Vital Signs Last Vital Signs Documentation Date Time Temp Pulse Resp B/P (MAP) Pulse Ox O2 Delivery O2 Flow Rate FiO2 03/11/17 08:03 36.9 86 20 95/55 (68) 95 Nasal Cannula 2.0 Physical Exam Constitutional: General Apperance: overweight Level of Distress: acutely ill, chronically ill Psychiatric: Mental Status: lethargic Orientation: to time, to place, to person Memory: recent memory normal, remote memory normal Head: normocephalic, atraumatic Eyes: Pupils: PERRLA ENMT: normal ENT inspection Neck: trachea midline, pertinent finding (Elevated JVP) Lungs: Auscultation: rales/crackles on the left, pertinent finding ( decreased breath sounds in the bases ) Cardiovascular: Heart Auscultation: no murmurs, no rubs, irregular rate rhythm Peripheral Pulses: Radial Pulse: normal on the left, normal on the right Dorsalis Pedis Pulse: absent on the left, absent on the right Abdomen: Bowel Sounds: normal, pertinent finding (distended. Somewhat firm. ) Inspection & Palpation: no tenderness, guarding & rebound Liver: hepatomegaly Extremities: no clubbing, no ulcers, edema, pertinent finding (2-3+bilateral lower extremity edema) Neurologic: Gait & Station: pertinent finding (no focal motor deficit) Cranial Nerves: grossly intact Assessment and Plan Assessment and Plan Acute decompensated systolic heart failure with persistent evidence of multifactorial volume overload. Stable renal dysfunction Recent complicated transcatheter aortic valve replacement, emergent redo sternotomy - bioprosthetic AVR, repair of a fistula from the aorta to left atrium, mitral valve repair Chronic atrial fibrillation Chronic asymptomatic hypotension - resolved RECOMMENDATIONS/PLAN: Discontinue oral Torsemide Resume IV furosemide Discontinue amiodarone, hopefully aiding the poor appetite Resume Toprol XL, starting at 12.5 mg/day Heparin bridge to proper Coumadin anticoagulation Eventual resumption of Losartan, probably as an outpatient. Cardiology attending physician: Patient seen and examined at the bedside. Lower extremity edema unchanged. His creatinine has improved. Denies dyspnea at rest. No orthopnea or PND. INR remains subtherapeutic. PE: VSS, Gen:NAD,chronically ill. Heart: Irregular, Normal S1S2. Lungs: Crackles at the left base. No wheeze. Ext: 2+ B/L pitting pretibial edema A/P: Agree with above PAC history, physical exam, assessment and plan. Discontinue oral torsemide today. Resume IV furosemide. May require titration 80 mg twice daily pending urine output over the next 12-24 hours. Amiodarone discontinued in favor of Toprol-XL. Other medications will be continued as previously ordered. Jarod Villarreal DO, [facility] Laboratory Results Last 24 Hours Test 03/10/17 11:00 03/10/17 15:56 03/10/17 16:23 03/10/17 20:15 Bedside Glucose 210 mg/dl 205 mg/dl 236 mg/dl Activated Partial Thromboplast Time 49.3 SECONDS Partial Thromboplastin Ratio 1.9 Test 03/11/17 05:50 03/11/17 07:30 White Blood Count 7.69 K/uL Red Blood Count 3.56 M/uL Hemoglobin 8.3 g/dL Hematocrit 28.1 % Mean Corpuscular Volume 78.9 fL Mean Corpuscular Hemoglobin 23.3 pg Mean Corpuscular Hemoglobin Concent 29.5 g/dl RDW Standard Deviation 56.9 fL RDW Coefficient of Variation 19.5 % Platelet Count 193 K/uL Mean Platelet Volume 11.2 fL Prothrombin Time 20.5 SECONDS Prothromb Time International Ratio 1.9 Activated Partial Thromboplast Time 44.3 SECONDS Partial Thromboplastin Ratio 1.7 Sodium Level 138 mmol/L Potassium Level 4.3 mmol/L Chloride Level 97 mmol/L Carbon Dioxide Level 33 mmol/L Anion Gap 8.0 mmol/L Blood Urea Nitrogen 58 mg/dl Creatinine 1.80 mg/dl Est Creatinine Clear Calc Drug Dose 46.0 ml/min Estimated GFR () 42.6 Estimated GFR (Non- 36.8 BUN/Creatinine Ratio 32.3 Random Glucose 150 mg/dl Calcium Level 8.0 mg/dl Bedside Glucose 179 mg/dl
[2017-03-11] MEDS: HEPARIN 25,000 UNIT/500ML D5W 500 ML IV PRN (14:31)
[2017-03-11 14:35] LABS: PARTIAL THROMBOPLASTIN RATIO 2.5
[2017-03-11] MEDS: WARFARIN SOD 5 MG TAB PO SCH (16:54)
[2017-03-11] MEDS: FUROSEMIDE INJ 40 MG in SYRINGE 0 ML IV SCH (16:55)
[2017-03-11] MEDS: ZOLPIDEM TARTRATE 5 MG TAB PO PRN (23:59)
[2017-03-12] VITALS (12 sets, daily range): BP systolic 95–134; BP diastolic 31–77; PULSE 74–88; TEMP 36.8–37.1; O2SAT 91–98
[2017-03-12 06:31] LABS: INR 2.1 (0.9-1.1); PARTIAL THROMBOPLASTIN RATIO 2.1; PROTHROMBIN TIME (PATIENT) 22.9 SECONDS (9.0-12.0)
[2017-03-12 06:49] LABS: BUN/CREATININE RATIO 31.4 (10-20); CALCIUM 8.1 mg/dl (8.5-10.1); CREATININE 1.7 mg/dl (0.60-1.40)
[2017-03-12] MEDS: POLYETHYLENE (MIRALAX) 17 GM PACK PO SCH (07:37)
[2017-03-12] MEDS: FUROSEMIDE INJ 40 MG in SYRINGE 0 ML IV SCH (07:40)
[2017-03-12] MEDS: BOOST VANILLA PUDDING CUP PO SCH ×3 (07:40→21:39)
[2017-03-12] MEDS: GABAPENTIN 100 MG CAP PO SCH ×2 (07:41→21:37)
[2017-03-12] MEDS: CLONAZEPAM 0.5 MG TAB PO SCH ×2 (07:41→23:12)
[2017-03-12] MEDS: FAMOTIDINE 20 MG TAB PO SCH (07:41)
[2017-03-12] MEDS: SENNA 8.6 MG TAB PO SCH (07:41)
[2017-03-12] MEDS: MAGNESIUM OXIDE 400 MG TAB PO SCH (07:41)
[2017-03-12] MEDS: SPIRONOLACTONE 25 MG TAB PO SCH (07:41)
[2017-03-12] MEDS: ASPIRIN 81 MG ECTAB PO SCH (07:41)
[2017-03-12] MEDS: TAMSULOSIN HCL 0.4 MG CAP PO SCH (07:41)
[2017-03-12] MEDS: METOPROLOL SUCC 25MG EXT REL TAB PO SCH (07:42)
[2017-03-12] MEDS: INSULIN ASPART 100 UNITS/ML 3 ML PEN SC SCH ×4 (07:50→21:39)
[2017-03-12] MEDS: INSULIN GLARGINE SOLOSTAR 100 UNITS/ML 3 ML PEN SC SCH (07:51)
--- NOTE | 2017-03-12 09:19 | Cardiology Follow-Up ---
Subjective General Date of Service: Mar 12, 2017. Chief Complaint: follow-up CHF, volume overload Pt evaluation today including: conversation w/ patient, physical exam, chart review, lab review, review of studies, review of inpatient medication list History of Present Illness Patient seen and examined. Sleeping throughout the day, poorly at night. Increased dyspnea with reduction in supplemental oxygen overnight. Generalized weakness, fatigue. Improved fluid retention No chest pain. No palpitations. Telemetry: Chronic atrial fibrillation. Current heart rate is in the 80's. PVC' s in singles. No bradyarrhythmias or pauses. March 02, 2017 TTE Interpretation Summary ([facility], as per Dr. Diaz): There is a septal, anterolateral and apical wall motion abnormality with akinesis of the segments. The remaining left ventricular wall segments are mildly hypokinetic. Left ventricular systolic function is moderately reduced. The LV Ejection Fraction = 30-35%. The right ventricle is not well visualized. The right ventricular systolic function is grossly normal. The left atrium is severely dilated. There is severe mitral annular calcification. There is trace mitral regurgitation. There is mild tricuspid regurgitation. Mild pulmonary hypertension is present. The PA systolic pressure is calculated to be 47 mm Hg. There is a prosthetic aortic valve. There is no significant aortic regurgitation. No hemodynamically significant valvular aortic stenosis. Allergies Coded Allergies: Lisinopril (Verified Adverse Reaction, Intermediate, COUGH, 03/05/17) Social History Smoking Status: Never Smoker Hx Tobacco Use In Past Year?: No Hx Alcohol Use - Type And Amou: No Hx Substance Use - Type And Am: No Problem List Medical Problems: (1) Atrial fibrillation Status: Chronic (2) CHF (congestive heart failure) Permanent Comment: LVEF 30-35% by echo 06/17/14 Status: Chronic (3) Elevated troponin Status: Acute (4) Heart failure Status: Acute (5) Hypoxia Status: Acute (6) Hypoxia Status: Acute (7) Pleural effusion Status: Acute Review of Systems Respiratory: + shortness of breath, + dyspnea on exertion, No cough, No dyspnea at rest, No hemoptysis Cardiac: + edema, No chest pain, No orthopnea, No claudication Physical Exam Vital Signs Last Vital Signs Documentation Date Time Temp Pulse Resp B/P (MAP) Pulse Ox O2 Delivery O2 Flow Rate FiO2 03/12/17 08:01 95 Nasal Cannula 3.0 03/12/17 07:34 36.9 81 18 106/31 (56) Physical Exam Constitutional: General Apperance: overweight Level of Distress: acutely ill, chronically ill Psychiatric: Mental Status: lethargic Orientation: to time, to place, to person Memory: recent memory normal, remote memory normal Head: normocephalic, atraumatic Eyes: Pupils: PERRLA ENMT: normal ENT inspection Neck: trachea midline, pertinent finding (Elevated JVP) Lungs: Auscultation: rales/crackles on the left, pertinent finding ( decreased breath sounds in the bases ) Cardiovascular: Heart Auscultation: no murmurs, no rubs, irregular rate rhythm Peripheral Pulses: Radial Pulse: normal on the left, normal on the right Dorsalis Pedis Pulse: absent on the left, absent on the right Abdomen: Bowel Sounds: normal, pertinent finding (distended. Somewhat firm. ) Inspection & Palpation: no tenderness, guarding & rebound Liver: hepatomegaly Extremities: no clubbing, no ulcers, edema, pertinent finding (1-2+bilateral lower extremity edema) Neurologic: Gait & Station: pertinent finding (no focal motor deficit) Cranial Nerves: grossly intact Assessment and Plan Assessment and Plan Acute decompensated systolic heart failure with improving but persistent evidence of multifactorial volume overload. 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 Increase activity as tolerated. Eventual resumption of Losartan, likely as an outpatient. Cardiology attending physician: Patient seen and examined at the bedside. Lower extremity edema unchanged. Inadequate diuresis with 40mg IV BID lasix. His creatinine has improved. Denies dyspnea at rest. No orthopnea or PND. INR therapeutic. PE: VSS, Gen:NAD,chronically ill. Heart: Irregular, Normal S1S2. Lungs: Crackles at the left base. No wheeze. Ext: 2+ B/L pitting pretibial edema A/P: Agree with above PAC history, physical exam, assessment and plan. Increase IV furosemide to 80mg BID. May require lasix gtt +/- metolazone pending urine output over the next 24 hours. Discontinue heparin. Other medications will be continued as previously ordered. Jarod Villarreal DO [facility] Laboratory Results Last 24 Hours Test 03/11/17 11:07 03/11/17 14:00 03/11/17 16:47 03/11/17 20:37 Bedside Glucose 214 mg/dl 235 mg/dl 265 mg/dl Activated Partial Thromboplast Time 66.1 SECONDS Partial Thromboplastin Ratio 2.5 Test 03/12/17 05:47 03/12/17 06:43 Prothrombin Time 22.9 SECONDS Prothromb Time International Ratio 2.1 Activated Partial Thromboplast Time 53.8 SECONDS Partial Thromboplastin Ratio 2.1 Sodium Level 138 mmol/L Potassium Level 4.0 mmol/L Chloride Level 98 mmol/L Carbon Dioxide Level 33 mmol/L Anion Gap 7.0 mmol/L Blood Urea Nitrogen 53 mg/dl Creatinine 1.70 mg/dl Est Creatinine Clear Calc Drug Dose 48.7 ml/min Estimated GFR () 45.7 Estimated GFR (Non- 39.4 BUN/Creatinine Ratio 31.4 Random Glucose 160 mg/dl Calcium Level 8.1 mg/dl Bedside Glucose 181 mg/dl
--- NOTE | 2017-03-12 16:46 | Progress Note ---
Internal Med Progress Note Date of Service: Mar 12, 2017. Provider Documentation: SUBJECTIVE: feels very weak ,continues to have SOB very dyspneic with minimum exertion OBJECTIVE: Vital Signs-as noted below Exam: General-chronically ill appearing Eyes-sclera non icteric Lungs-+ crackles , rales at base Heart-irregularly irregulare Abdomen-soft, non tender Extremities-+1-2 bilateral lower ext edema Neuro-AAO x3, no focal neurological deficit Lab data as noted below. ASSESSMENT & PLAN: ACUTE DECOMPENSATION OF SYSTOLIC HEART FAILURE: H/O ISCHEMIC CARDIOMYOPATHY Presented with worsening SOB, orthopnea, pedal edema, weight gain. H/O recent TAVR with complications: Sternotomy, fistula from aorta to left atrium, mitral valve repair at [facility] on 01/22/17, was discharged to rehab on 02/05/17 S/P IV Bumex in ED S/P IV Lasix drip at 15 mg/hour:discontinued on 03/06/17 , ECHO: moderate LV systolic dysfunction (EF 30-35%) similar to his preoperative ejection fraction and normal prosthetic aortic valve function. 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 ( INR 2.1 today ) DM II IDDM WITH HYPOGLYCEMIC EPISODES ISS, Accu checks DVT PX On Coumadin DISPOSITION Continue with tele monitoring PT/OT Pt accepted to [facility] for rehab. Covered Button Maker consulted Vital Signs: Date Time Temp Pulse Resp B/P (MAP) Pulse Ox O2 Delivery O2 Flow Rate FiO2 03/12/17 15:20 37.0 74 20 108/35 (59) 97 Nasal Cannula 3.0 6/13/17 12:13 95 Nasal Cannula 3.0 03/12/17 11:57 37.1 78 20 95/53 (67) 98 Nasal Cannula 3.0 03/12/17 10:04 84 98 03/12/17 08:01 95 Nasal Cannula 3.0 03/12/17 07:34 36.9 81 18 106/31 (56) 97 3.0 03/12/17 04:00 97 Nasal Cannula 1.0 03/12/17 03:57 36.8 79 18 134/77 (96) 92 Nasal Cannula 2.0 03/12/17 00:08 36.9 88 20 128/69 (88) 91 Nasal Cannula 2.0 03/12/17 00:00 97 Nasal Cannula 1.0 03/11/17 20:03 37.3 85 18 136/74 (94) 95 Nasal Cannula 2.0 03/11/17 20:00 97 Nasal Cannula 1.0 Lab Results: Results Past 24 Hours Test 03/11/17 16:47 03/11/17 20:37 03/12/17 05:47 03/12/17 06:43 Range/Units Bedside Glucose 235 265 181 70-99 mg/dl Prothrombin Time 22.9 9.0-12.0 SECONDS Prothromb Time International Ratio 2.1 0.9-1.1 Activated Partial Thromboplast Time 53.8 21.0-31.0 SECONDS Partial Thromboplastin Ratio 2.1 Sodium Level 138 136-145 mmol/L Potassium Level 4.0 3.5-5.1 mmol/L Chloride Level 98 98-107 mmol/L Carbon Dioxide Level 33 21-32 mmol/L Anion Gap 7.0 3-11 mmol/L Blood Urea Nitrogen 53 7-18 mg/dl Creatinine 1.70 0.60-1.40 mg/dl Est Creatinine Clear Calc Drug Dose 48.7 ml/min Estimated GFR () 45.7 Estimated GFR (Non- 39.4 BUN/Creatinine Ratio 31.4 10-20 Random Glucose 160 70-99 mg/dl Calcium Level 8.1 8.5-10.1 mg/dl Test 03/12/17 10:59 Range/Units Bedside Glucose 213 70-99 mg/dl
[2017-03-12] MEDS: WARFARIN SOD 5 MG TAB PO SCH (17:09)
[2017-03-12] MEDS: FUROSEMIDE INJ 80 MG in SYRINGE 0 ML IV SCH (18:48)
[2017-03-12] MEDS: ZOLPIDEM TARTRATE 5 MG TAB PO PRN (23:15)
[2017-03-13] VITALS (10 sets, daily range): BP systolic 95–155; BP diastolic 42–80; PULSE 74–98; TEMP 36.3–37.2; O2SAT 94–99
[2017-03-13 06:25] LABS: PARTIAL THROMBOPLASTIN RATIO 1.3; PROTHROMBIN TIME (PATIENT) 22.1 SECONDS (9.0-12.0)
[2017-03-13 06:29] LABS: HEMATOCRIT 26.6 % (42-52); MEAN CELL VOLUME 78.7 fL (80-100); MEAN CORPUSCULAR HEMOGLOBIN 23.1 pg (25-34); MEAN CORPUSCULAR HGB CONC 29.3 g/dl (32-36); MEAN PLATELET VOLUME 10.5 fL (7.4-10.4); PLATELET COUNT 208 K/uL (130-400); RED BLOOD COUNT 3.38 M/uL (4.7-6.1); WHITE BLOOD COUNT 7.62 K/uL (4.8-10.8)
[2017-03-13 07:01] LABS: BUN/CREATININE RATIO 34.6 (10-20); CALCIUM 8.1 mg/dl (8.5-10.1); CREATININE 1.4 mg/dl (0.60-1.40)
[2017-03-13] MEDS: INSULIN ASPART 100 UNITS/ML 3 ML PEN SC SCH ×4 (07:38→20:28)
[2017-03-13] MEDS: FUROSEMIDE INJ 80 MG in SYRINGE 0 ML IV SCH ×2 (08:11→18:03)
[2017-03-13] MEDS: SPIRONOLACTONE 25 MG TAB PO SCH (08:12)
[2017-03-13] MEDS: MAGNESIUM OXIDE 400 MG TAB PO SCH (08:12)
[2017-03-13] MEDS: GABAPENTIN 100 MG CAP PO SCH ×2 (08:12→19:18)
[2017-03-13] MEDS: POLYETHYLENE (MIRALAX) 17 GM PACK PO SCH (08:12)
[2017-03-13] MEDS: TAMSULOSIN HCL 0.4 MG CAP PO SCH (08:12)
[2017-03-13] MEDS: ASPIRIN 81 MG ECTAB PO SCH (08:12)
[2017-03-13] MEDS: METOPROLOL SUCC 25MG EXT REL TAB PO SCH (08:13)
[2017-03-13] MEDS: FAMOTIDINE 20 MG TAB PO SCH (08:13)
[2017-03-13] MEDS: SENNA 8.6 MG TAB PO SCH (08:13)
[2017-03-13] MEDS: INSULIN GLARGINE SOLOSTAR 100 UNITS/ML 3 ML PEN SC SCH (08:15)
[2017-03-13] MEDS: CLONAZEPAM 0.5 MG TAB PO SCH ×2 (08:22→22:59)
[2017-03-13] MEDS: BOOST VANILLA PUDDING CUP PO SCH ×2 (08:23→16:11)
--- NOTE | 2017-03-13 09:59 | Cardiology Follow-Up ---
Subjective General Date of Service: Mar 13, 2017. Chief Complaint: follow-up CHF, volume overload Pt evaluation today including: conversation w/ patient, physical exam, chart review, lab review, review of studies, review of inpatient medication list History of Present Illness Patient seen and examined. Improved dyspnea and fluid retention. No chest pain. No palpitations. Anxious for discharge. Telemetry: Chronic atrial fibrillation. Current heart rate is in the 80's. PVC' s in singles. No bradyarrhythmias or pauses. March 02, 2017 TTE Interpretation Summary ([facility], as per Dr. Diaz): There is a septal, anterolateral and apical wall motion abnormality with akinesis of the segments. The remaining left ventricular wall segments are mildly hypokinetic. Left ventricular systolic function is moderately reduced. The LV Ejection Fraction = 30-35%. The right ventricle is not well visualized. The right ventricular systolic function is grossly normal. The left atrium is severely dilated. There is severe mitral annular calcification. There is trace mitral regurgitation. There is mild tricuspid regurgitation. Mild pulmonary hypertension is present. The PA systolic pressure is calculated to be 47 mm Hg. There is a prosthetic aortic valve. There is no significant aortic regurgitation. No hemodynamically significant valvular aortic stenosis. Allergies Coded Allergies: Lisinopril (Verified Adverse Reaction, Intermediate, COUGH, 03/05/17) Social History Smoking Status: Never Smoker Hx Tobacco Use In Past Year?: No Hx Alcohol Use - Type And Amou: No Hx Substance Use - Type And Am: No Problem List Medical Problems: (1) Atrial fibrillation Status: Chronic (2) CHF (congestive heart failure) Permanent Comment: LVEF 30-35% by echo 06/17/14 Status: Chronic (3) Elevated troponin Status: Acute (4) Heart failure Status: Acute (5) Hypoxia Status: Acute (6) Hypoxia Status: Acute (7) Pleural effusion Status: Acute Review of Systems Respiratory: + dyspnea on exertion, No cough, No wheezing, No shortness of breath, No dyspnea at rest Cardiac: + edema, No chest pain, No orthopnea, No PND, No claudication, No palpitations Physical Exam Vital Signs Last Vital Signs Documentation Date Time Temp Pulse Resp B/P (MAP) Pulse Ox O2 Delivery O2 Flow Rate FiO2 03/13/17 09:10 Nasal Cannula 3.0 03/13/17 07:15 36.6 79 18 95/42 (59) 98 Physical Exam Constitutional: General Apperance: overweight Level of Distress: NAD, chronically ill Psychiatric: Mental Status: active & alert, lethargic Orientation: to time, to place, to person Memory: recent memory normal, remote memory normal Head: normocephalic, atraumatic Eyes: Pupils: PERRLA ENMT: normal ENT inspection Neck: trachea midline, pertinent finding (Mildly elevated JVD) Lungs: Respiratory effort: no dyspnea Auscultation: deminished air movement, decreased breath sounds, rales/ crackles on the left, pertinent finding ( decreased breath sounds in the bases ) Cardiovascular: Heart Auscultation: no murmurs, no rubs, irregular rate rhythm Peripheral Pulses: Radial Pulse: normal on the left, normal on the right Dorsalis Pedis Pulse: absent on the left, absent on the right Abdomen: Bowel Sounds: normal, pertinent finding (Distended. Somewhat firm. 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 Chronic asymptomatic hypotension Symptomatic anemia. RECOMMENDATIONS/PLAN: Transfuse 1 unit of PRBC's followed by an additional 20 mg IV furosemide today. Continue IV furosemide through today, likely transitioning to oral torsemide in the PM of 03/14/2017. Increase activity as tolerated. Eventual resumption of Losartan, likely as an outpatient. Weekly cardiology follow-up appointments post discharge (office aware) Cardiology attending physician: Patient seen and examined at the bedside. Lower extremity edema mildly improved today. Diuresis improved with titration of Lasix to 80 mg IV twice daily. Creatinine continues to improve. Denies dyspnea at rest. No orthopnea or PND. Heart rate controlled on telemetry. PE: VSS, Gen:NAD,chronically ill. Heart: Irregular, Normal S1S2. Lungs: Crackles at the left base. No wheeze. Ext: 2+ B/L pitting pretibial edema A/P: Agree with above PAC history, physical exam, assessment and plan. Continue IV furosemide to 80mg BID. Patient will receive one unit of packed red blood cells today followed by an additional dose of intravenous furosemide. Other medications will be continued as previously ordered. Possible discharge in 24-48 hours. Jarod Villarreal DO [facility] Laboratory Results Last 24 Hours Test 03/12/17 10:59 03/12/17 16:10 03/12/17 20:01 03/13/17 05:37 Bedside Glucose 213 mg/dl 180 mg/dl 216 mg/dl White Blood Count 7.62 K/uL Red Blood Count 3.38 M/uL Hemoglobin 7.8 g/dL Hematocrit 26.6 % Mean Corpuscular Volume 78.7 fL Mean Corpuscular Hemoglobin 23.1 pg Mean Corpuscular Hemoglobin Concent 29.3 g/dl RDW Standard Deviation 57.0 fL RDW Coefficient of Variation 19.7 % Platelet Count 208 K/uL Mean Platelet Volume 10.5 fL Prothrombin Time 22.1 SECONDS Prothromb Time International Ratio 2.0 Activated Partial Thromboplast Time 34.0 SECONDS Partial Thromboplastin Ratio 1.3 Sodium Level 140 mmol/L Potassium Level 4.0 mmol/L Chloride Level 101 mmol/L Carbon Dioxide Level 32 mmol/L Anion Gap 7.0 mmol/L Blood Urea Nitrogen 48 mg/dl Creatinine 1.40 mg/dl Est Creatinine Clear Calc Drug Dose 58.3 ml/min Estimated GFR () 57.8 Estimated GFR (Non- 49.8 BUN/Creatinine Ratio 34.6 Random Glucose 146 mg/dl Calcium Level 8.1 mg/dl Test 03/13/17 06:01 Bedside Glucose 167 mg/dl
[2017-03-13] MEDS ORDERED: FUROSEMIDE INJ 20 MG in SYRINGE 0 ML IV ONE (15:00)
--- NOTE | 2017-03-13 16:02 | Progress Note ---
Internal Med Progress Note Date of Service: Mar 13, 2017. Provider Documentation: SUBJECTIVE: getting PRBC transfusion denies of any SOB feels weakness has improves some [facility] OBJECTIVE: Vital Signs-as noted below Exam: General-chronically ill appearing Eyes-sclera non icteric Lungs-+ crackles , rales at base Heart-irregularly irregulare Abdomen-soft, non tender Extremities-+1-2 bilateral lower ext edema Neuro-AAO x3, no focal neurological deficit Lab data as noted below. ASSESSMENT & PLAN: ACUTE DECOMPENSATION OF SYSTOLIC HEART FAILURE: H/O ISCHEMIC CARDIOMYOPATHY Presented with worsening SOB, orthopnea, pedal edema, weight gain. 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 Appreciate Cardiology and Pulm help S/P R thoracentesis on 03/05/17 Discontinued PO Torsemide and Entresto secondary to worsening renal function Neurontin dose decreased to 100mg TID from 300mg TID S/P Albumin 2 doses on and 1 dose 03/09 Continue diuresis per cardiology Continue IV furosemide 80 mg BID likely transitioning to oral torsemide in the PM of 03/14/2017. Increase activity as tolerated. Eventual resumption of Losartan, likely as an outpatient. 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, mitral valve repair at [facility] on 01/22/17, was discharged to rehab on 02/05/17 ATRIAL FIBRILLATION was amiodarone 200 mg daily >>> discontinued (secondary to poor appetite) Switched to Metoprolol on 03/11 on Coumadin INR therapeutic DM II IDDM WITH HYPOGLYCEMIC EPISODES ISS, Accu checks DVT PX On Coumadin DISPOSITION Continue with tele monitoring PT/OT Pt will need rehab [facility] -[facility]erral made to [facility] Grants Officer consulted Vital Signs: Date Time Temp Pulse Resp B/P (MAP) Pulse Ox O2 Delivery O2 Flow Rate FiO2 03/13/17 15:29 36.8 77 24 147/80 97 3.0 03/13/17 13:53 37.2 98 16 155/70 03/13/17 13:15 36.8 82 18 150/76 99 3.0 03/13/17 12:45 37.0 82 18 117/72 98 3.0 03/13/17 12:30 36.7 82 20 102/65 03/13/17 12:11 36.3 82 19 110/55 (73) 98 Nasal Cannula 3.0 03/13/17 11:58 Nasal Cannula 3.0 03/13/17 11:28 36.8 79 16 103/59 (74) 99 Nasal Cannula 3.0 03/13/17 09:10 Nasal Cannula 3.0 03/13/17 07:15 36.6 79 18 95/42 (59) 98 Nasal Cannula 3.0 03/13/17 04:00 Nasal Cannula 3.0 03/13/17 03:56 36.5 74 20 117/44 (68) 99 Nasal Cannula 3.0 03/13/17 00:00 Nasal Cannula 3.0 03/12/17 23:25 37.1 76 19 133/64 (87) 97 Nasal Cannula 3.0 03/12/17 20:05 Nasal Cannula 3.0 03/12/17 19:10 37.0 78 20 120/43 (68) 96 Nasal Cannula 3.0 03/12/17 16:20 Nasal Cannula 3.0 Lab Results: Results Past 24 Hours Test 03/12/17 16:10 03/12/17 20:01 03/13/17 05:37 03/13/17 06:01 Range/Units Bedside Glucose 180 216 167 70-99 mg/dl White Blood Count 7.62 4.8-10.8 K/uL Red Blood Count 3.38 4.7-6.1 M/uL Hemoglobin 7.8 14.0-18.0 g/dL Hematocrit 26.6 42-52 % Mean Corpuscular Volume 78.7 80-100 fL Mean Corpuscular Hemoglobin 23.1 25-34 pg Mean Corpuscular Hemoglobin Concent 29.3 32-36 g/dl RDW Standard Deviation 57.0 36.4-46.3 fL RDW Coefficient of Variation 19.7 11.5-14.5 % Platelet Count 208 130-400 K/uL Mean Platelet Volume 10.5 7.4-10.4 fL Prothrombin Time 22.1 9.0-12.0 SECONDS Prothromb Time International Ratio 2.0 0.9-1.1 Activated Partial Thromboplast Time 34.0 21.0-31.0 SECONDS Partial Thromboplastin Ratio 1.3 Sodium Level 140 136-145 mmol/L Potassium Level 4.0 3.5-5.1 mmol/L Chloride Level 101 98-107 mmol/L Carbon Dioxide Level 32 21-32 mmol/L Anion Gap 7.0 3-11 mmol/L Blood Urea Nitrogen 48 7-18 mg/dl Creatinine 1.40 0.60-1.40 mg/dl Est Creatinine Clear Calc Drug Dose 58.3 ml/min Estimated GFR () 57.8 Estimated GFR (Non- 49.8 BUN/Creatinine Ratio 34.6 10-20 Random Glucose 146 70-99 mg/dl Calcium Level 8.1 8.5-10.1 mg/dl Test 03/13/17 11:07 Range/Units Bedside Glucose 244 70-99 mg/dl
[2017-03-13] MEDS: WARFARIN SOD 5 MG TAB PO SCH (16:10)
[2017-03-13] MEDS: ZOLPIDEM TARTRATE 5 MG TAB PO PRN (22:59)
[2017-03-14 00:07] VITALS: BP 93/60; PULSE 82; TEMP 37; O2SAT 98
[2017-03-14 04:02] VITALS: BP 118/72; PULSE 78; TEMP 36.8; O2SAT 97
[2017-03-14 05:59] LABS: BASO % 0.5 %; BASO ABS # 0.04 K/uL (0-0.2); EOS % 3.3 %; HEMATOCRIT 29.9 % (42-52); IG% 0.2 %; LYMPH % 8.1 %; LYMPH ABS # 0.67 K/uL (1.2-3.4); MEAN CELL VOLUME 80.4 fL (80-100); MEAN CORPUSCULAR HEMOGLOBIN 23.9 pg (25-34); MEAN CORPUSCULAR HGB CONC 29.8 g/dl (32-36); MEAN PLATELET VOLUME 10.5 fL (7.4-10.4); MONO % 7.4 %; NEUT % 80.5 %; PLATELET COUNT 223 K/uL (130-400); RED BLOOD COUNT 3.72 M/uL (4.7-6.1); WHITE BLOOD COUNT 8.26 K/uL (4.8-10.8)
[2017-03-14 06:13] LABS: INR 2.2 (0.9-1.1); PARTIAL THROMBOPLASTIN RATIO 1.4; PROTHROMBIN TIME (PATIENT) 24.8 SECONDS (9.0-12.0)
[2017-03-14 06:22] LABS: COMPLETE YES; OVALOCYTES 1+
[2017-03-14] MEDS: INSULIN ASPART 100 UNITS/ML 3 ML PEN SC SCH ×2 (07:00→12:14)
[2017-03-14 07:30] VITALS: BP 98/58; PULSE 78; TEMP 36.8; O2SAT 97
[2017-03-14] MEDS: BOOST VANILLA PUDDING CUP PO SCH (07:30)
[2017-03-14] MEDS ORDERED: ZOLP5TAB6 PO (07:42)
[2017-03-14] MEDS ORDERED: SPR25 PO (07:42)
[2017-03-14] MEDS ORDERED: NRN100 PO (07:42)
[2017-03-14] MEDS ORDERED: ULT50X PO (07:42)
[2017-03-14] MEDS ORDERED: TPRSR25 PO (07:42)
[2017-03-14] MEDS ORDERED: CLON0.5T3 PO ×2 (07:42)
[2017-03-14] MEDS ORDERED: INSDGIPEN SC (07:42)
--- NOTE | 2017-03-14 08:23 | Progress Note ---
Internal Med Progress Note Date of Service: Mar 14, 2017. Provider Documentation: SUBJECTIVE: had an uneventful night feeling better today no complain of SOB, legs are less swelled hoping to go to [facility] today OBJECTIVE: Vital Signs-as noted below Exam: General-chronically ill appearing Eyes-sclera non icteric Lungs-minimum crackles at base Heart-irregularly irregulare Abdomen-soft, non tender Extremities-+1-2 bilateral lower ext edema -improved from prior Neuro-AAO x3, no focal neurological deficit Lab data as noted below. ASSESSMENT & PLAN: ACUTE DECOMPENSATION OF SYSTOLIC HEART FAILURE: H/O ISCHEMIC CARDIOMYOPATHY Presented with worsening SOB, orthopnea, pedal edema, weight gain. 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 Appreciate Cardiology and Pulm help S/P R thoracentesis on 03/05/17 Discontinued PO Torsemide and Entresto secondary to worsening renal function Neurontin dose decreased to 100mg TID from 300mg TID S/P Albumin 2 doses on and 1 dose 03/09 Continued diuresis per cardiology Continue IV furosemide 80 mg BID pt has been negative balance of > 2500 ml /wt loss~4 kg after aggressive diuresis since admission likely transitioning to oral torsemide today of 03/14/2017-as per Cardiology Increase activity as tolerated. Eventual resumption of Losartan, likely as an outpatient. 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, mitral valve repair at [facility] on 01/22/17, was discharged to rehab on 02/05/17 ATRIAL FIBRILLATION was amiodarone 200 mg daily >>> discontinued (secondary to poor appetite) Switched to Metoprolol on 03/11 on Coumadin INR therapeutic DM II IDDM WITH HYPOGLYCEMIC EPISODES Lantus dose decreased to 5 units HS will be discharged with above dose ISS, Accu checks DVT PX On Coumadin DISPOSITION Plan to discharge pt to [facility] today will need transport arrangements [employer] consulted Update given to Jemima Bustillo today Vital Signs: Date Time Temp Pulse Resp B/P (MAP) Pulse Ox O2 Delivery O2 Flow Rate FiO2 03/14/17 04:02 36.8 78 18 118/72 (87) 97 03/14/17 04:00 Nasal Cannula 3.0 03/14/17 00:07 37.0 82 16 93/60 (71) 98 03/14/17 00:00 Nasal Cannula 3.0 03/13/17 20:00 Nasal Cannula 3.0 03/13/17 18:57 37.2 82 18 133/74 (93) 94 Nasal Cannula 2.0 03/13/17 16:00 Nasal Cannula 3.0 03/13/17 15:29 36.8 77 24 147/80 97 3.0 03/13/17 13:53 37.2 98 16 155/70 03/13/17 13:15 36.8 82 18 150/76 99 3.0 03/13/17 12:45 37.0 82 18 117/72 98 3.0 03/13/17 12:30 36.7 82 20 102/65 03/13/17 12:11 36.3 82 19 110/55 (73) 98 Nasal Cannula 3.0 03/13/17 11:58 Nasal Cannula 3.0 03/13/17 11:28 36.8 79 16 103/59 (74) 99 Nasal Cannula 3.0 03/13/17 09:10 Nasal Cannula 3.0 Lab Results: Results Past 24 Hours Test 03/13/17 11:07 03/13/17 15:58 03/13/17 19:51 03/14/17 05:03 Range/Units Bedside Glucose 244 225 215 70-99 mg/dl White Blood Count 8.26 4.8-10.8 K/uL Red Blood Count 3.72 4.7-6.1 M/uL Hemoglobin 8.9 14.0-18.0 g/dL Hematocrit 29.9 42-52 % Mean Corpuscular Volume 80.4 80-100 fL Mean Corpuscular Hemoglobin 23.9 25-34 pg Mean Corpuscular Hemoglobin Concent 29.8 32-36 g/dl Platelet Count 223 130-400 K/uL Mean Platelet Volume 10.5 7.4-10.4 fL Neutrophils (%) (Auto) 80.5 % Lymphocytes (%) (Auto) 8.1 % Monocytes (%) (Auto) 7.4 % Eosinophils (%) (Auto) 3.3 % Basophils (%) (Auto) 0.5 % Neutrophils # (Auto) 6.65 1.4-6.5 K/uL Lymphocytes # (Auto) 0.67 1.2-3.4 K/uL Monocytes # (Auto) 0.61 0.11-0.59 K/uL Eosinophils # (Auto) 0.27 0-0.5 K/uL Basophils # (Auto) 0.04 0-0.2 K/uL RDW Standard Deviation 56.9 36.4-46.3 fL RDW Coefficient of Variation 19.4 11.5-14.5 % Immature Granulocyte % (Auto) 0.2 % Immature Granulocyte # (Auto) 0.02 0.00-0.02 K/uL Ovalocytes 1+ Prothrombin Time 24.8 9.0-12.0 SECONDS Prothromb Time International Ratio 2.2 0.9-1.1 Activated Partial Thromboplast Time 35.4 21.0-31.0 SECONDS Partial Thromboplastin Ratio 1.4 Test 03/14/17 06:28 03/14/17 08:03 Range/Units Bedside Glucose 160 70-99 mg/dl
[2017-03-14] MEDS: POLYETHYLENE (MIRALAX) 17 GM PACK PO SCH (08:33)
[2017-03-14] MEDS: SENNA 8.6 MG TAB PO SCH (08:34)
[2017-03-14] MEDS: CLONAZEPAM 0.5 MG TAB PO SCH (08:40)
[2017-03-14] MEDS: SPIRONOLACTONE 25 MG TAB PO SCH (08:41)
[2017-03-14] MEDS: TAMSULOSIN HCL 0.4 MG CAP PO SCH (08:41)
[2017-03-14] MEDS: ASPIRIN 81 MG ECTAB PO SCH (08:41)
[2017-03-14] MEDS: MAGNESIUM OXIDE 400 MG TAB PO SCH (08:41)
[2017-03-14] MEDS: FUROSEMIDE INJ 80 MG in SYRINGE 0 ML IV SCH (08:41)
[2017-03-14] MEDS: GABAPENTIN 100 MG CAP PO SCH (08:42)
[2017-03-14] MEDS: METOPROLOL SUCC 25MG EXT REL TAB PO SCH (08:42)
[2017-03-14] MEDS: FAMOTIDINE 20 MG TAB PO SCH (08:45)
[2017-03-14] MEDS: INSULIN GLARGINE SOLOSTAR 100 UNITS/ML 3 ML PEN SC SCH (08:46)
[2017-03-14 09:07] LABS: BUN/CREATININE RATIO 30.6 (10-20); CREATININE 1.4 mg/dl (0.60-1.40)
[2017-03-14 09:21] LABS: CALCIUM 8.5 mg/dl (8.5-10.1)
--- NOTE | 2017-03-14 09:50 | Cardiology Follow-Up ---
Subjective General Date of Service: Mar 14, 2017. Chief Complaint: follow-up CHF, volume overload Pt evaluation today including: conversation w/ patient, physical exam, chart review, lab review, review of studies, review of inpatient medication list History of Present Illness Patient seen and examined. Feels better. Anxious for discharge Improved dyspnea and fluid retention. No chest pain. No palpitations. Ramos catheter remains in place. Telemetry: Chronic atrial fibrillation. Current heart rate is in the 80's. PVC' s in singles. No bradyarrhythmias or pauses. March 02, 2017 TTE Interpretation Summary ([facility], as per Dr. Diaz): There is a septal, anterolateral and apical wall motion abnormality with akinesis of the segments. The remaining left ventricular wall segments are mildly hypokinetic. Left ventricular systolic function is moderately reduced. The LV Ejection Fraction = 30-35%. The right ventricle is not well visualized. The right ventricular systolic function is grossly normal. The left atrium is severely dilated. There is severe mitral annular calcification. There is trace mitral regurgitation. There is mild tricuspid regurgitation. Mild pulmonary hypertension is present. The PA systolic pressure is calculated to be 47 mm Hg. There is a prosthetic aortic valve. There is no significant aortic regurgitation. No hemodynamically significant valvular aortic stenosis. Allergies Coded Allergies: Lisinopril (Verified Adverse Reaction, Intermediate, COUGH, 03/05/17) Social History Smoking Status: Never Smoker Hx Tobacco Use In Past Year?: No Hx Alcohol Use - Type And Amou: No Hx Substance Use - Type And Am: No Problem List Medical Problems: (1) Atrial fibrillation Status: Chronic (2) CHF (congestive heart failure) Permanent Comment: LVEF 30-35% by echo 06/17/14 Status: Chronic (3) Elevated troponin Status: Acute (4) Heart failure Status: Acute (5) Hypoxia Status: Acute (6) Hypoxia Status: Acute (7) Pleural effusion Status: Acute Review of Systems Respiratory: No cough, No wheezing, No shortness of breath, No dyspnea on exertion, No dyspnea at rest, No hemoptysis Cardiac: + edema, No chest pain, No orthopnea, No PND, No claudication, No palpitations Physical Exam Vital Signs Last Vital Signs Documentation Date Time Temp Pulse Resp B/P (MAP) Pulse Ox O2 Delivery O2 Flow Rate FiO2 03/14/17 07:30 Nasal Cannula 3.0 03/14/17 07:30 36.8 78 18 98/58 (71 97 Physical Exam Constitutional: General Apperance: overweight Level of Distress: NAD, chronically ill Psychiatric: Mental Status: active & alert, lethargic Orientation: to time, to place, to person Memory: recent memory normal, remote memory normal Head: normocephalic, atraumatic Eyes: Pupils: PERRLA ENMT: normal ENT inspection Neck: trachea midline, pertinent finding (Mildly elevated JVD) Lungs: Respiratory effort: no dyspnea Auscultation: deminished air movement, decreased breath sounds, rales/ crackles on the left, pertinent finding ( decreased breath sounds in the bases ) Cardiovascular: Heart Auscultation: no murmurs, no rubs, irregular rate rhythm Peripheral Pulses: Radial Pulse: normal on the left, normal on the right Dorsalis Pedis Pulse: absent on the left, absent on the right Abdomen: Bowel Sounds: normal, pertinent finding (Distended. Somewhat firm. ) Inspection & Palpation: no tenderness, guarding & rebound Liver: hepatomegaly Extremities: no clubbing, no ulcers, edema, pertinent finding (1-2+bilateral lower extremity edema) Neurologic: Gait & Station: pertinent finding (no focal motor deficit) Cranial Nerves: grossly intact Assessment and Plan Assessment and Plan Compensated systolic heart failure signs and symptoms. Status post right thoracentesis on 03/05/17, left thoracentesis on 03/07/2017. Stable renal dysfunction Chronic atrial fibrillation with a controlled ventricular response. Chronic asymptomatic hypotension Symptomatic anemia status post transfusion of 1 U PRBC's Recent complicated transcatheter aortic valve replacement, emergent redo sternotomy - bioprosthetic AVR, repair of a fistula from the aorta to left atrium, mitral valve repair RECOMMENDATIONS/PLAN: Remove ramos catheter Transition IV furosemide to oral torsemide, 40 mg twice a day Continue spironolactone, low dose Toprol XL, ASA, and Coumadin anticoagulation. Increase activity as tolerated. Cardiology follow-up at [facility] on March 22, 2017 at 9:15 AM Consider resumption of Losartan 12.5 - 25 mg/day at follow-up. Cardiology attending physician: Patient seen and examined at the bedside. Lower extremity edema mildly improved. Significant diuresis noted over the past 24 hours. Creatinine remained stable. Denies dyspnea at rest. No orthopnea or PND. Heart rate controlled on telemetry. PE: VSS, Gen:NAD,chronically ill. Heart: Irregular, Normal S1S2. Lungs: Crackles at the left base. No wheeze. Ext: 1+ B/L pretibial edema A/P: Agree with above PAC history, physical exam, assessment and plan. Transitioned to oral torsemide today. Other medications will be continued as previously ordered. Close outpatient heart failure clinic follow-up scheduled. Will sign off. Please call with questions. Jarod Villarreal DO, [facility] Laboratory Results Last 24 Hours Test 03/13/17 11:07 03/13/17 15:58 03/13/17 19:51 03/14/17 05:03 Bedside Glucose 244 mg/dl 225 mg/dl 215 mg/dl White Blood Count 8.26 K/uL Red Blood Count 3.72 M/uL Hemoglobin 8.9 g/dL Hematocrit 29.9 % Mean Corpuscular Volume 80.4 fL Mean Corpuscular Hemoglobin 23.9 pg Mean Corpuscular Hemoglobin Concent 29.8 g/dl Platelet Count 223 K/uL Mean Platelet Volume 10.5 fL Neutrophils (%) (Auto) 80.5 % Lymphocytes (%) (Auto) 8.1 % Monocytes (%) (Auto) 7.4 % Eosinophils (%) (Auto) 3.3 % Basophils (%) (Auto) 0.5 % Neutrophils # (Auto) 6.65 K/uL Lymphocytes # (Auto) 0.67 K/uL Monocytes # (Auto) 0.61 K/uL Eosinophils # (Auto) 0.27 K/uL Basophils # (Auto) 0.04 K/uL RDW Standard Deviation 56.9 fL RDW Coefficient of Variation 19.4 % Immature Granulocyte % (Auto) 0.2 % Immature Granulocyte # (Auto) 0.02 K/uL Ovalocytes 1+ Prothrombin Time 24.8 SECONDS Prothromb Time International Ratio 2.2 Activated Partial Thromboplast Time 35.4 SECONDS Partial Thromboplastin Ratio 1.4 Sodium Level 142 mmol/L Potassium Level 4.0 mmol/L Chloride Level 100 mmol/L Carbon Dioxide Level 34 mmol/L Anion Gap 8.0 mmol/L Blood Urea Nitrogen 43 mg/dl Creatinine 1.40 mg/dl Est Creatinine Clear Calc Drug Dose 58.5 ml/min Estimated GFR () 57.8 Estimated GFR (Non- 49.8 BUN/Creatinine Ratio 30.6 Random Glucose 149 mg/dl Calcium Level 8.5 mg/dl Test 03/14/17 06:28 Bedside Glucose 160 mg/dl
--- NOTE | 2017-03-14 09:55 | Discharge Instructions ---
Discharge Instructions Date of Service Mar 14, 2017. Admission Reason for Admission: Respiratory Failure, Acute Discharge Discharge Diagnosis / Problem: ACUTE DECOMPENSATED SYSTOLIC HEART FAILURE / ISCHEMIC CARDIOMYOPATHY Discharge Goals Goal(s): Decrease discomfort, Improve disease control, Diagnostic testing, Therapeutic intervention Activity Recommendations Activity Level: Assistance Required Therapies: Physical Therapy, Occupational Therapy . Additional Information Patient informed of condition: Yes Advance Directives: No DNR: No Level of Care: Acute Rehab Communicable Disease: No Prognosis: Improving Chandler Catheter: No Instructions / Follow-Up Instructions / Follow-Up PATIENT WILL NEED DAILY WT CHECK PLEASE NOTIFY CARDIOLOGY OFFICE/HEART FAILURE CLINIC FOR WT GAIN Cardiology follow-up at [facility] [address] on March 22, 2017 at 9:15 AM CARDIOLOGY WILL Consider resumption of Losartan 12.5 - 25 mg/day at follow-up. ATORVASTATIN DISCONTINUED FOR GENERALIZED WEAKNESS WILL BE RESUMED BY CARDIOLOGY FUNCTIONAL STATUS IMPROVES CARDIOLOGY OFFICE WILL SCHEDULE WEEKLY FOLLOW UP Current Hospital Diet Patient's current hospital diet: AHA Diet (Heart Healthy), Diabetes Type 2 Diet Discharge Diet Recommended Diet: AHA Diet (Heart Healthy), Low Sodium Diet (2gm Na), Diabetes Type 2 Diet Fluid Restriction: 1800 ml (7 cups) Pending Studies Studies pending at discharge: no Medical Emergencies . Who to Call and When: Medical Emergencies: If at any time you feel your situation is an emergency, please call 911 immediately. . Non-Emergent Contact Non-Emergency issues call your: Primary Care Provider (GRUPO SUNG PA-C ), [employer] . . "Provider Documentation" section prepared by Kendal Hopkins. . Core Measure Problem Core Measures: None
[2017-03-14] MEDS ORDERED: DMD20 PO (10:06)
--- NOTE | 2017-03-14 10:12 | Discharge Summary ---
Discharge Summary Date of Service Mar 14, 2017. Discharge Summary Admission Date: Mar 01, 2017 at 20:56 Discharge Date: Mar 14, 2017 Discharge Disposition: Rehab ([facility] ) Principal Diagnosis: ACUTE DECOMPENSATED SYSTOLIC HEART FAILURE /ISCHEMIC CARDIOMYOPATHY Procedures: ECHO : There is a septal, anterolateral and apical wall motion abnormality with akinesis of the segments. The remaining left ventricular wall segments are mildly hypokinetic. Left ventricular systolic function is moderately reduced. The LV Ejection Fraction = 30-35%. The right ventricle is not well visualized. The right ventricular systolic function is grossly normal. The left atrium is severely dilated. There is severe mitral annular calcification. There is trace mitral regurgitation. There is mild tricuspid regurgitation. Mild pulmonary hypertension is present. The PA systolic pressure is calculated to be 47 mm Hg. There is a prosthetic aortic valve. There is no significant aortic regurgitation. No hemodynamically significant valvular aortic stenosis. THORACENTESIS : LEFT AND RIGHT SIDE BY DR GIBSON PULMONOLOGY Consultations: [facility]ARDIOLOG[facility] PULMONOLOGY DR GIBSON Medication Reconciliation New Medications: Gabapentin (Gabapentin) 100 Mg Cap 100 MG PO BID for 30 Days, #60 CAP Insulin Glargine (Lantus Solostar) 100 Unit/Ml Inj 5 UNIT SC DAILY for 30 Days Metoprolol Succinate (Metoprolol Succinate ER) 25 Mg Tabcr 12.5 MG PO QAM for 30 Days Spironolactone (Spironolactone) 25 Mg Tab 25 MG PO QAM for 30 Days, #30 TAB Torsemide (Torsemide) 20 Mg Tab 40 MG PO BID for 30 Days, #120 TAB Tramadol HCl (Tramadol HCl) 50 Mg Tab 25 MG PO Q6H PRN for Pain, #10 TAB Continued Medications: Acetaminophen (Tylenol) 500 Mg Tab 500 MG PO Q4H PRN for Pain or Fever, TAB Aspirin (Aspirin Ec) 81 Mg Tab 81 MG PO DAILY Clonazepam (Klonopin) 0.5 Mg Tab 0.5 MG PO HS PRN for Anxiety, #10 TAB (This prescription has been renewed) Clonazepam (Klonopin) 0.5 Mg Tab 0.25 MG PO BID, #30 TAB (This prescription has been renewed) Docusate Sodium (Docusate Sodium) 100 Mg Cap 1 CAP PO BID PRN for Constipation, CAP Famotidine (Pepcid) 20 Mg Tab 20 MG PO DAILY, TAB Magnesium Oxide (Mag-Ox) 400 Mg Tab 400 MG PO DAILY, TAB Nitroglycerin (Nitrostat) 0.4 Mg Tab 0.4 MG UT PRN Polyethylene Glycol 3350 (Miralax) 1 Pow Pow 17 GM PO DAILY, GM Senna (Senokot) 8.6 Mg Tab 1 TAB PO DAILY, TAB Tamsulosin Hcl (Flomax) 0.4 Mg Cap 1 CAP PO DAILY, CAP Warfarin Sodium (Coumadin) 5 Mg Tab 5 MG PO DAILY, TAB TAKE 1 OR 1.5 TAB DAILY OR DIRECTED Zolpidem Tartrate (Zolpidem Tartrate) 5 Mg Tab 1 TAB PO HS PRN for Sleep, #30 TAB (This prescription has been renewed) Discontinued Medications: Amiodarone Hcl (Cordarone) 200 Mg Tab 200 MG PO DAILY, TAB Atorvastatin (Lipitor) 80 Mg Tab 80 MG PO DAILY, TAB Furosemide (Lasix) 20 Mg Tab 3 TAB PO BID, TAB (PT TAKING DIFFERENTLY: TAKE 60MG DAILY) Gabapentin (Neurontin) 300 Mg Cap 300 MG PO TID, CAP Insulin Glargine (Lantus) 100 Unit/Ml Inj 75-100 UNITS SC DAILY Lorazepam (Ativan) 0.5 Mg Tab 0.5 MG PO Q6H PRN for Anxiety/Agitation, TAB Potassium Chloride (Micro-K Ext Rel) 10 Meq Capcr 10 MEQ PO BID, CAP Admission Information HPI (per Admitting provider): DATE OF ADMISSION: 03/01/2017 PRIMARY CARE PHYSICIAN: Dr. Puri. CHIEF COMPLAINT: CHF. HISTORY OF PRESENT ILLNESS: History obtained from patient and records. Medical history significant for chronic systolic heart failure (most recent EF of 45%) 2 to ischemic cardiomyopathy, CAD status post CABG, sp recent TAVR sp prosthetic valve rupture sp repair (12/2016), history of AFib/AFlutter, on Coumadin. history of CVA, PVD, DM2, insulin requiring, chronic anemia (baseline hemoglobin 8-9). hx cdif sp tx Recent confinement July 2016 for decompensated heart failure. Px confined at [facility] January 22 to 2016 for TAVR. Complicated postop course w/c included resp failure requiring repeat intubation and eventually prolonged MV, ruptured prosthetic AV sp repair, additional surgery for sternal wound infection. postop CVA, UTI sp tx, Cdif sp tx. Toprol switched to Amiodarone during confinement. Patient noted to be hoarse at time of discharge to [facility] about 2 weeks ago. As per note, the patient's twice a day oral Lasix changed to oral once daily Lasix at [facility]. Increasing shortness of breath for the last few weeks, orthopnea, samantha leg swelling and abdominal distention. No chest pain. no cough symptoms. Patient claims weight gain of 20 pounds the last 2 weeks. Patient was seen on followup at [facility] [address] passenger firer's office yesterday. Px felt to have significant volume overload. Other recommendations as per Cardio note : repeat echo recommended to assess pericardial fluid noted on recent TTE. attempt to discontinue amiodarone and resume low dose Toprol XL. Sent to the Emergency Room, Px received Bumex. MEDICAL HISTORY: As above. A 2D echo from 02/21/2017 showed small sized basal septal inferior-posterior wall segment. EF 45%, mildly hypokinetic LV wall segment, aortic valve prosthesis noted. Small pericardial effusion noted as well. SURGERIES: Aortic valve replacement, CABG, mitral valve plasty, cataract surgery, sternum separation, great toe amputation. HOME MEDICATIONS: Mag oxide, Nitrostat, MiraLax, Micro-K, Flomax, Coumadin, zolpidem, Lasix, Pepcid, Neurontin, Lantus, Ativan, Cordarone, aspirin, Tylenol, Lipitor, Klonopin. ALLERGIES: TO LISINOPRIL. FAMILY HISTORY: Unknown, as the patient was adopted. PERSONAL AND SOCIAL HISTORY: Nonsmoker, no chronic ETOH intake. 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 Physical Exam (per Admitting): REVIEW OF SYSTEMS: As per HPI. All other ROS negative. PHYSICAL EXAMINATION: VITAL SIGNS: Blood pressure was noted to be 125/68, pulse rate 90, RR 24, temperature 36.4, sats 89 on room air. later 94 on 3L GENERAL: Noted to be in minimal respiratory distress, anxious, obese. dysphonic SKIN: Pallor. HEENT: Pale palpebral conjunctivae. Dry mucosa. nasal cannula noted NECK: Short neck. JVD noted. CHEST: Decreased effort. HEART: Irregular. ABDOMEN: Some distention. EXTREMITIES: samantha lower extremity edema. no tenderness NEUROLOGIC: No gross focality except for dysphonia. Hospital Course ACUTE DECOMPENSATION OF SYSTOLIC HEART FAILURE: H/O ISCHEMIC CARDIOMYOPATHY -improved Presented with worsening SOB, orthopnea, pedal edema, weight gain. 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 Appreciate Cardiology and Pulm help S/P R thoracentesis on 03/05/17 Discontinued PO Torsemide and Entresto secondary to worsening renal function Neurontin dose decreased to 100mg TID from 300mg TID S/P Albumin 2 doses on and 1 dose 03/09 Continued diuresis per cardiology was on IV furosemide 80 mg BID pt has been negative balance of > 2500 ml /wt loss~4 kg after aggressive diuresis since admission started on oral torsemide 40 mg PO BID D/c Potassium supplement Increase activity as tolerated. Cardiology follow-up at [facility] on March 22, 2017 at 9:15 AM Consider resumption of Losartan 12.5 - 25 mg/day at follow-up. 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, mitral valve repair at [facility] on 01/22/17, was discharged to rehab on 02/05/17 ATRIAL FIBRILLATION was amiodarone 200 mg daily >>> discontinued (secondary to poor appetite) Switched to Metoprolol on 03/11 on Coumadin INR therapeutic will need INR check per protocol at [facility] DM II IDDM WITH HYPOGLYCEMIC EPISODES Lantus dose decreased to 5 units HS will be discharged with above dose ISS, Accu checks DVT PX On Coumadin DISPOSITION Transfer pt to [facility] today Total time spent on discharge = 40 MINS This includes examination of the patient, discharge planning, medication reconciliation, and communication with other providers. Discharge Instructions Discharge Instructions Date of Service Mar 14, 2017. Admission Reason for Admission: Respiratory Failure, Acute Discharge Discharge Diagnosis / Problem: ACUTE DECOMPENSATED SYSTOLIC HEART FAILURE / ISCHEMIC CARDIOMYOPATHY Discharge Goals Goal(s): Decrease discomfort, Improve disease control, Diagnostic testing, Therapeutic intervention Activity Recommendations Activity Level: Assistance Required Therapies: Physical Therapy, Occupational Therapy . Additional Information Patient informed of condition: Yes Advance Directives: No DNR: No Level of Care: Acute Rehab Communicable Disease: No Prognosis: Improving Chandler Catheter: No Instructions / Follow-Up Instructions / Follow-Up PATIENT WILL NEED DAILY WT CHECK PLEASE NOTIFY CARDIOLOGY OFFICE/HEART FAILURE CLINIC FOR WT GAIN Cardiology follow-up at [facility] on March 22, 2017 at 9:15 AM CARDIOLOGY WILL Consider resumption of Losartan 12.5 - 25 mg/day at follow-up. ATORVASTATIN DISCONTINUED FOR GENERALIZED WEAKNESS WILL BE RESUMED BY CARDIOLOGY FUNCTIONAL STATUS IMPROVES CARDIOLOGY OFFICE WILL SCHEDULE WEEKLY FOLLOW UP Current Hospital Diet Patient's current hospital diet: AHA Diet (Heart Healthy), Diabetes Type 2 Diet Discharge Diet Recommended Diet: AHA Diet (Heart Healthy), Low Sodium Diet (2gm Na), Diabetes Type 2 Diet Fluid Restriction: 1800 ml (7 cups) Pending Studies Studies pending at discharge: no Medical Emergencies . Who to Call and When: Medical Emergencies: If at any time you feel your situation is an emergency, please call 911 immediately. . Non-Emergent Contact Non-Emergency issues call your: Primary Care Provider (GRUPO SUNG PA-C ), [employer] . . "Provider Documentation" section prepared by Kendal Hopkins. . Core Measure Problem Core Measures: None Additional Copies To [employer] PA-C Koberna, Paul, M.D.
[2017-03-14 11:44] VITALS: BP 164/72; PULSE 74; TEMP 36.5; O2SAT 96
[2017-03-14 14:13] VITALS: BP 164/72; PULSE 74; TEMP 36.5; O2SAT 96
[2017-03-14] MEDS ORDERED: TORSEMIDE 20 MG TAB PO SCH (21:00)
== END 2017-03-14 15:15 | DRG 291 ==
LOC: C.EDB 16:18 → C.2T 20:56 → EDBEDREQ 21:00 → CANRESERV 21:05 → ENRESERV 21:05
PROVIDERS: ADMIT Internal Medicine; ATTEND Hospitalist
PROC: 0W9930Z Drainage of Right Pleural Cavity with Drainage Device, Percutaneous Approach (ICD-10-PCS; principal; 2017-03-05)
PROC: 0W9B30Z Drainage of Left Pleural Cavity with Drainage Device, Percutaneous Approach (ICD-10-PCS; 2017-03-06)
DX: I11.0 Hypertensive heart disease with heart failure (principal); J96.01 Acute respiratory failure with hypoxia; I48.1 Persistent atrial fibrillation; J90 Pleural effusion, not elsewhere classified; E46 Unspecified protein-calorie malnutrition; I50.23 Acute on chronic systolic (congestive) heart failure; I25.10 Atherosclerotic heart disease of native coronary artery without angina pectoris; Z95.1 Presence of aortocoronary bypass graft; Z95.2 Presence of prosthetic heart valve; E66.9 Obesity, unspecified; Z68.36 Body mass index [BMI] 36.0-36.9, adult; E78.5 Hyperlipidemia, unspecified; I25.5 Ischemic cardiomyopathy; Z79.01 Long term (current) use of anticoagulants; E11.40 Type 2 diabetes mellitus with diabetic neuropathy, unspecified; E11.649 Type 2 diabetes mellitus with hypoglycemia without coma; Z79.4 Long term (current) use of insulin; Z79.82 Long term (current) use of aspirin; Z79.899 Other long term (current) drug therapy; D64.9 Anemia, unspecified; I65.23 Occlusion and stenosis of bilateral carotid arteries; E87.70 Fluid overload, unspecified; Z88.8 Allergy status to other drugs, medicaments and biological substances; Z89.419 Acquired absence of unspecified great toe; Z82.49 Family history of ischemic heart disease and other diseases of the circulatory system; Z84.89 Family history of other specified conditions

== ENCOUNTER 2019-04-05 20:15 | Inpatient (IN) ==
--- OUTSIDE RECORDS SUMMARY | 2019-04-05 20:17 | External Medical Summary | Continuity of Care Document ---
:1945 Author Name Eunice Graham, Provider Address Unavailable Unavailable , Care Team Providers Name Role Phone Unavailable Unavailable Unavailable Darci Graham, Korey Yancey Unavailable [email or web address], [email or web address] Unavailable Unavailable Unavailable Unavailable Unavailable Problems Routine history and physical examination of adult (V70.0) (Z 00.00) Eustachian tube dysfunction (381.81) (H69.80) Allergies and Adverse Reactions No Known Allergies (Allergy) Medications Ofloxacin 0.3 % Otic Solution; INSTILL 5 DROP Twice daily Santos Angel Start: 20-Nov-2010 Quantity: 5 Refills: 4 Procedures History of Coronary Artery Triple Arterial Bypass Graft Status: Completed History of Renal Lithotripsy Status: Com pleted Immunizations Immunizations not documented Social History - Smoking Status Unknown if ever smoked Plan of Treatment Planned Observations Planned Goals not documented Results No Known Results Results not documented
[2019-04-05] MEDS ORDERED: CEFEPIME 2,000 MG/20 ML VIAL IV STA (20:37)
[2019-04-05] MEDS ORDERED: VANCOMYCIN HCL 2,250 MG in SODIUM CHLORIDE 0.9% 500 ML IV ONE (20:37)
[2019-04-05] MEDS ORDERED: VANCOMYCIN CONSULT ACTIVE PRN (20:37)
[2019-04-05] MEDS ORDERED: ACETAMINOPHEN 1,000 MG/100 ML VIAL IV STA (20:37)
[2019-04-05] MEDS ORDERED: SODIUM CHLORIDE 0.9% 1000ML 500 ML IV ONE ×3 (20:43→21:35)
[2019-04-05 21:07] LABS: Basophils # (auto) 0.01 K/uL (0-0.2); Basophils % (auto) 0.1 %; Eosinophils # (auto) 0.01 K/uL (0-0.5); Eosinophils % (auto) 0.1 %; Hematocrit (blood only) 37.7 % (42-52); Immature Granulocytes # (auto) 0.05 K/uL (0.00-0.02); Immature Granulocytes % (auto) 0.3 %; Lymphocytes # (auto) 0.37 K/uL (1.2-3.4); Lymphocytes % (auto) 2.5 %; Mean Corpuscular Hgb Conc 34.5 g/dL (32-36); Mean Corpuscular Volume 83.6 fL (80-100); Mean Platelet Volume 10.8 fL (7.4-10.4); Monocytes % (auto) 5.3 %; Neutrophils # (auto) 13.82 K/uL (1.4-6.5); Neutrophils % (auto) 91.7 %; Platelet Count 197 K/uL (130-400); RDW Coefficient of Variation 17.2 % (11.5-14.5); RDW Standard Deviation 52.9 fL (36.4-46.3); Red Blood Count 4.51 M/uL (4.7-6.1); White Blood Count 15.06 K/uL (4.8-10.8)
[2019-04-05] MEDS ORDERED: ALBUT/IPRATROP 3MG/0.5MG NEB 3 ML VIAL NEB STA (21:07)
[2019-04-05 21:22] LABS: INR 3.4 (0.9-1.1); Partial Thromboplastin Ratio 1.6; Partial Thromboplastin Time 44.2 Seconds (21.0-31.0); Prothrombin Time 32.3 Seconds (9.0-12.0)
[2019-04-05 21:23] LABS: Albumin Level 2.6 gm/dl (3.4-5.0); BUN Creatinine Ratio 36.3 (10-20); Calcium 8.9 mg/dl (8.5-10.1); Creatinine Clr Calc Pharmacy 32.7 ml/min; Est GFR (African American) 29.2; Est GFR (Non-African American) 25.2; Magnesium 2.8 mg/dl (1.8-2.4)
--- NOTE | 2019-04-05 21:29 | XRay Report ---
XR chest 1V portable HISTORY: Sepsis COMPARISON: Chest 03/11/2017. FINDINGS: No pneumothorax. The heart remains enlarged. There are poststernotomy changes. Small to mod erate left pleural effusion and left basal densities persist. Improved aeration with the right lung. Mild congestive change remains unchanged. IMPRESSION: 1. No change in the moderate left pleural effusion and left basilar airspace opacities. 2. Right basilar airspace opacity has resolved in the interval. 3. Mild congestive change persists. Electronically signed by: Jadiel Washington M.D. 04/05/2019 9:28 PM
[2019-04-05 21:31] LABS: Albumin Globulin Ratio 0.4 (0.9-2); Bilirubin,Total 1.4 mg/dl (0.2-1); Globulin 5.9 gm/dl (2.5-4.0); Total Protein 8.5 gm/dl (6.4-8.2); Troponin I 0.05 ng/ml (0-0.045)
--- NOTE | 2019-04-05 21:42 | History & Physical Report ---
Date of Service April 05, 2019 Assessment & Plan (1) Septic shock: Septic Shock Community Acquired Pneumonia chronic respiratory failure with Hypoxia -CXR:No change in the moderate left pleural effusion and left basilar airspace opacities. Right basilar airspace opacity has resolved in the interval. Mild congestive change persists. --UA pending Lactate:1.6 Procalcitonin:4.08 On chronic Oxygen 2L at baseline Start broad spectrum IV Antibiotics (Vanco, Zosyn, Doxy) Blood cultures obtained Received 3 L of IV fluids in ED Cautious use of IV fluids given history of significant ischemic cardiomyopathy with EF of 25 to 30%. 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 fib RVR In setting of septic shock Received IV fluids Hold metoprolol for now given significant hypotension On Coumadin for anticoagulation Monitor INR:3.4 H/O ischemic cardiomyopathy H/O systolic CHF Last EF: 25 to 30% Patient needs defibrillator placement Currently patient not interested in any procedures Monitor volume status closely Diuretics held currently. DM II: Will hold oral diabetic meds Last A1c: 6.6 on June 10, 2018 ISS, basal Insulin, Accu checks, Diabetic diet Pharmacy Glycemic control consult Pharmacy to manage Insulin CAD S/P CABG H/O aortic valve stenosis S/P TAVR S/P mitral valve repair Continue aspirin, statin Hold metoprolol, losartan for now Consider cardiology evaluation if needed H/O CVA H/O carotid artery stenosis Continue aspirin, statin DVT Px: On coumadin Code Status Full Code as per my discussion with the patient Disposition: Admitted in ICU PT OT prior to discharge Case management consulted History of Present Illness Chief Complaint: Shortness of breath Primary Care Provider: Barrera Puri MD Patient is a 74-year-old male with complex medical history with history of CHF with EF 25 to 30%, chronic atrial fibrillation on Coumadin, diabetes mellitus on insulin therapy, coronary artery disease S/P CABG, history of aortic valve stenosis S/P TAVR, CVA, ischemic cardiomyopathy, spinal stenosis, dyslipidemia, CKD III, carotid artery stenosis, hypertension and other problems presents with history of worsening shortness of breath, cough, generalized weakness, decreased appetite, fever and chills, increased leg swelling. Patient states he has chronic cough which has been gradually worsening since last 2 days. Cough is productive with whitish expectoration. He noted to have fever and chills today. He developed significant generalized weakness leading to inability to walk, having balance issues and has been using a walker to ambulate. Reports decreased appetite. He noted to have increased bilateral lower extremity leg swelling which has been progressively worsening as well. Shortness of breath has been progressively worsening even with minimal exertion. He was recently monitored with ZIO patch as outpatient and was recommended to have defibrillator placement by his circuit walker but currently patient is not interested for any procedure. He was found to be hypotensive SBP in 60s while in ED. Despite receiving 3 L of IV fluids in ED patient has significant hypotension. Chest x- ray suggestive of left lower lobe pneumonia. Blood pressure usually runs low with SBP in 80s as per patient. On recommendations from technician biological health, patient will be started on IV pressors. Denies any history of chest pain, palpitations, dizziness, diaphoresis, hemoptysis, fall, head trauma, headache, change in vision, nausea, vomiting, abdominal pain, diarrhea, dysuria, recent change in medications. Allergies Allergy/AdvReac Type Severity Reaction Status Date / Time lisinopril AdvReac Intermediate COUGH Verified 04/05/19 21:24 Home Medications Home Medications Medication Instructions Recorded Confirmed Type acetaminophen [Tylenol Extra 500 mg PO Q4 PRN 04/05/19 04/05/19 History Strength] aspirin [Aspir-81] 81 mg PO DAILY 04/05/19 04/05/19 History atorvastatin 40 mg PO HS 04/05/19 04/05/19 History buspirone 2.5 mg PO BID 04/05/19 04/05/19 History docusate sodium 100 mg PO BID PRN 04/05/19 04/05/19 History gabapentin 600 mg PO TID 04/05/19 04/05/19 History glipizide 5 mg PO DAILY 04/05/19 04/05/19 History insulin glargine [Lantus U-100 0 unit SUBCUT DAILY 04/05/19 04/05/19 History Insulin] losartan 12.5 mg PO DAILY 04/05/19 04/05/19 History magnesium oxide 400 mg PO QAM 04/05/19 04/05/19 History metoprolol succinate 25 mg PO DAILY 04/05/19 04/05/19 History nitroglycerin [Nitrostat] 0.4 mg SUBLINGUAL DIRECTED PRN 04/05/19 04/05/19 History polyethylene glycol 3350 [Miralax] 17 g PO DAILY PRN 04/05/19 04/05/19 History sennosides 8.6 mg PO DAILY PRN 04/05/19 04/05/19 History spironolactone 25 mg PO DAILY 04/05/19 04/05/19 History tamsulosin [Flomax] 0.4 mg PO HS 04/05/19 04/05/19 History torsemide 20 mg PO QPM 04/05/19 04/05/19 History torsemide 40 mg PO QAM 04/05/19 04/05/19 History warfarin 5 mg PO DAILY 04/05/19 04/05/19 History zolpidem 5 mg PO HS PRN 04/05/19 04/05/19 History Past Med/Surg History Medical History Sepsis (Acute 08/24/14) Atrial fibrillation (Chronic) Coronary artery disease (Chronic) Dyslipidemia (Chronic) Diabetes mellitus, type II (Chronic) Hypertension (Chronic) Stroke (Chronic) Difficult airway (Chronic) Diabetic neuropathy (Chronic) History of renal calculi (Chronic) Aortic stenosis (Chronic) "severe per echo 06/17/14" CHF (congestive heart failure) (Chronic) "LVEF 30-35% by echo 06/17/14" Ulcer of toe due to diabetes mellitus (Acute) Respiratory failure, acute Surgical History Status post coronary artery bypass grafting (Chronic) Status post cataract extraction (Chronic) Family History Unknown Family history non-contributory Social History Preferred Language: Cypriot Feels Safe at Home: Yes Smoking Status: Never smoker Hx Alcohol Use: No Review of Systems Review of Systems: All systems reviewed & are unremarkable except as noted in HPI & below Physical Exam Physical Exam: Physical Exam: Vitals signs as noted above General Appearance:Chronic ill appearing, no apparent distress Head: normocephalic, Atraumatic Eyes: normal inspection, EOMI Neck: supple, Trachea midline Respiratory/Chest: Normal breath sounds, Left basal crackles Cardiovascular: Irregularly irregular rhythm, + systolic murmur, +Tachycardia Abdomen/GI:Soft, Non tender, Bowel sounds present Extremities/Musculoskelatal:normal inspection, 3+ B/L LE edema Neurologic/Psych:AAOX3, grossly no focal neurological deficits Skin: normal color, warm Results & Data Vital Signs (Past 12 Hours) Vital Signs Temp Pulse Pulse Resp BP Pulse Ox 04/05/19 21:27 109 H 23 95 04/05/19 21:04 92 04/05/19 21:00 108 H 62/44 L 94 04/05/19 20:46 79 79/55 L 94 04/05/19 20:45 109 H 94 04/05/19 20:41 95 04/05/19 20:40 121 H 95 04/05/19 20:34 117 H 67/51 L 95 04/05/19 20:26 38.6 C H 122 H 26 H 74/44 L 90 Laboratory Results Short CBC 04/05/19 Range/Units 20:47 WBC 15.06 H (4.8-10.8) K/uL Hgb 13.0 L (14.0-18.0) g/dL Hct 37.7 L (42-52) % Plt Count 197 (130-400) K/uL BMP 04/05/19 20:47 Sodium 131 L Potassium 5.0 Chloride 97 L Carbon Dioxide 23 BUN 88 H Creatinine 2.43 H Glucose 175 H Calcium 8.9 Cardiac Enzymes 04/05/19 Range/Units 20:47 Troponin I 0.050 H* (0-0.045) ng/ml Liver Function 04/05/19 Range/Units 20:47 Total Bilirubin 1.4 H (0.2-1) mg/dl AST 75 H (15-37) U/L ALT 55 (12-78) U/L Alkaline Phosphatase 288 H (45-117) U/L Albumin 2.6 L (3.4-5.0) gm/dl Diagnostic Findings CXR: 1. No change in the moderate left pleural effusion and left basilar airspace opacities. 2. Right basilar airspace opacity has resolved in the interval. 3. Mild congestive change persists. Medications Administered Home Medications Medication Instructions Recorded Confirmed acetaminophen [Tylenol Extra 500 mg PO Q4 PRN 04/05/19 04/05/19 Strength] aspirin [Aspir-81] 81 mg PO DAILY 04/05/19 04/05/19 atorvastatin 40 mg PO HS 04/05/19 04/05/19 buspirone 2.5 mg PO BID 04/05/19 04/05/19 docusate sodium 100 mg PO BID PRN 04/05/19 04/05/19 gabapentin 600 mg PO TID 04/05/19 04/05/19 glipizide 5 mg PO DAILY 04/05/19 04/05/19 insulin glargine [Lantus U-100 0 unit SUBCUT DAILY 04/05/19 04/05/19 Insulin] losartan 12.5 mg PO DAILY 04/05/19 04/05/19 magnesium oxide 400 mg PO QAM 04/05/19 04/05/19 metoprolol succinate 25 mg PO DAILY 04/05/19 04/05/19 nitroglycerin [Nitrostat] 0.4 mg SUBLINGUAL DIRECTED PRN 04/05/19 04/05/19 polyethylene glycol 3350 [Miralax] 17 g PO DAILY PRN 04/05/19 04/05/19 sennosides 8.6 mg PO DAILY PRN 04/05/19 04/05/19 spironolactone 25 mg PO DAILY 04/05/19 04/05/19 tamsulosin [Flomax] 0.4 mg PO HS 04/05/19 04/05/19 torsemide 20 mg PO QPM 04/05/19 04/05/19 torsemide 40 mg PO QAM 04/05/19 04/05/19 warfarin 5 mg PO DAILY 04/05/19 04/05/19 zolpidem 5 mg PO HS PRN 04/05/19 04/05/19 ECG Additional Comments: EKG: pending
[2019-04-05] MEDS: NOREPINEPHRINE BIT INJ 8 MG in DEXTROSE 5% 500 ML IV SCH (22:16)
--- NOTE | 2019-04-05 22:27 | Critical Care Consultation ---
Date of Consultation April 05, 2019 Assessment & Plan (1) Septic shock: Neuro- awake alert CV- septic shock. careful flluids with cardiac disease. start norepinephrine for vasopressor support. discussed central line risks and benefits and the risk of peripheral pressors. He would like to hold off on the central line for now. lactate 1.6 CHF previous EF 25-30. may need repeat echo. CAD, afib. aspirin, atorvastatin. hold metoprolol and losartan, hold his diuretics Pulmonary- L sided pneumonia. may have pleural effusion as well. will check bedside ultrasound. sat well on NC. titrate to keep sat >92% ID- septic shock due to pneumonia. follow cultures. vancomycin, piperacillin- tazobactam, and doxycycline Renal- acute renal failure prerenal vs ATN. careful fluids. watch UOP GI- diet as tolerated. LFTs up likely related to sepsis will watch Heme- INR 3.4 from warfarin. Endocrine- keep blood sugars <180 Dispo- admit to ICU for hemodynamic support I have personally spent 35 minutes of critical care time in the direct management of this patient. This is a life/limb threatening event. This includes time spent evaluating patient, direct bedside care, chart review, placing orders, interpretation of diagnostic studies, discussion with consultants, patient, and/or family members regarding treatment decisions, as well as other required patient management activities. This time is exclusive of all separately billable procedures, and teaching time and separate from and in addition to any other critical care service time. (2) Pneumonia: (3) Acute renal failure: History of Present Illness History of Present Illness 74 y/o male with a history of CHF EF 25-30, CAD, afib, CVA, DM, aortic stenosis who presents due to shortness of breath and weakness which started 4 days ago. He says that he has felt weak and had trouble walking and today was shivering and had a fever. He has been coughing frequently occasionaly productive. decreased appetite. per more swelling of legs and abdomen than usual. In the ED he was found to have LLL infitlrate, fever and hypotension. his SBP is been 60s-70s. according to the patient his normal blood pressure is in the mid 80s. He says he is feeling slightly bettter since getting her. he has gotten 1 liter of fluid so far. no N/V/D. no urinary symptoms. Allergies Allergy/AdvReac Type Severity Reaction Status Date / Time lisinopril AdvReac Intermediate COUGH Verified 04/05/19 21:24 Home Medications Home Medications Medication Instructions Recorded Confirmed Type acetaminophen [Tylenol Extra 500 mg PO Q4 PRN 04/05/19 04/05/19 History Strength] aspirin [Aspir-81] 81 mg PO DAILY 04/05/19 04/05/19 History atorvastatin 40 mg PO HS 04/05/19 04/05/19 History buspirone 2.5 mg PO BID 04/05/19 04/05/19 History docusate sodium 100 mg PO BID PRN 04/05/19 04/05/19 History gabapentin 600 mg PO TID 04/05/19 04/05/19 History glipizide 5 mg PO DAILY 04/05/19 04/05/19 History insulin glargine [Lantus U-100 0 unit SUBCUT DAILY 04/05/19 04/05/19 History Insulin] losartan 12.5 mg PO DAILY 04/05/19 04/05/19 History magnesium oxide 400 mg PO QAM 04/05/19 04/05/19 History metoprolol succinate 25 mg PO DAILY 04/05/19 04/05/19 History nitroglycerin [Nitrostat] 0.4 mg SUBLINGUAL DIRECTED PRN 04/05/19 04/05/19 History polyethylene glycol 3350 [Miralax] 17 g PO DAILY PRN 04/05/19 04/05/19 History sennosides 8.6 mg PO DAILY PRN 04/05/19 04/05/19 History spironolactone 25 mg PO DAILY 04/05/19 04/05/19 History tamsulosin [Flomax] 0.4 mg PO HS 04/05/19 04/05/19 History torsemide 20 mg PO QPM 04/05/19 04/05/19 History torsemide 40 mg PO QAM 04/05/19 04/05/19 History warfarin 5 mg PO DAILY 04/05/19 04/05/19 History zolpidem 5 mg PO HS PRN 04/05/19 04/05/19 History Patient History Medical History Sepsis (Acute 08/24/14) Atrial fibrillation (Chronic) Coronary artery disease (Chronic) Dyslipidemia (Chronic) Diabetes mellitus, type II (Chronic) Hypertension (Chronic) Stroke (Chronic) Difficult airway (Chronic) Diabetic neuropathy (Chronic) History of renal calculi (Chronic) Aortic stenosis (Chronic) "severe per echo 06/17/14" CHF (congestive heart failure) (Chronic) "LVEF 30-35% by echo 06/17/14" Ulcer of toe due to diabetes mellitus (Acute) Respiratory failure, acute Surgical History Status post coronary artery bypass grafting (Chronic) Status post cataract extraction (Chronic) Social History Preferred Language: Austrian Feels Safe at Home: Yes Smoking Status: Never smoker Review of Systems Review of Systems: Constitutional: + fevers + chills no weight loss +weight gain Eyes: no blurry or double vision EENT: no sore throat, no congestion Respiratory: + cough + shortness of breath Cardiovascular: no chest pain no palpitations GI: no abdominal pain, no nausea, no vomiting, no diarrhea, no constipation Gu: no dysuria, no frequency MSK: no joint pain, no muscle aches Skin: no rash Neuro: no headache, no dizziness, no focal weakness + generalized weakness Endocrine: no heat or cold intolerance heme: no easy bruising, no lymphadenopathy Psych: no depression, no anxiety Physical Exam Physical Exam: Constitutional: Comfortable NAD HEENT: normocephalic atraumatic. MMM. no cervical lymphadenopathy CV: tachycardic nl s1,s2 systolic murmurs no rubs or gallops Lungs: crackles to base on L. no accessory muscle use Abd: soft nontender nondistended edema to abd. normal bowel sounds Ext: + L edema. no cyanosis, no clubbing Skin: warm dry Neuro: alert and oriented. moving all extremities Psych: normal mood and affect Results & Data Vital Signs (Past 12 Hours) Vital Signs Temp Pulse Pulse Resp BP Pulse Ox 04/05/19 21:53 100 H 17 67/42 L 95 04/05/19 21:51 98 H 95 04/05/19 21:50 55/42 L 95 04/05/19 21:45 95 04/05/19 21:30 97 H 18 62/36 L 96 04/05/19 21:27 109 H 23 95 07/07/19 21:16 107 H 31 H 94 04/05/19 21:15 93 H 31 H 94 04/05/19 21:04 92 04/05/19 21:00 108 H 62/44 L 94 04/05/19 20:46 79 79/55 L 94 04/05/19 20:45 109 H 94 04/05/19 20:41 95 04/05/19 20:40 121 H 95 04/05/19 20:34 117 H 67/51 L 95 04/05/19 20:26 38.6 C H 122 H 26 H 74/44 L 90 Laboratory Results Laboratory Results - last 24 hr 04/05/19 04/05/19 04/05/19 20:47 20:47 20:47 WBC 15.06 H RBC 4.51 L Hgb 13.0 L Hct 37.7 L MCV 83.6 MCH 28.8 MCHC 34.5 RDW Std Deviation 52.9 H RDW Coeff of Abi 17.2 H Plt Count 197 MPV 10.8 H Immature Gran % (Auto) 0.3 Neut % (Auto) 91.7 Lymph % (Auto) 2.5 Atkinson % (Auto) 5.3 Eos % (Auto) 0.1 Baso % (Auto) 0.1 Immature Gran # (Auto) 0.05 H Neut # (Auto) 13.82 H Lymph # (Auto) 0.37 L Atkinson # (Auto) 0.80 H Eos # (Auto) 0.01 Baso # (Auto) 0.01 PT 32.3 H INR 3.4 H APTT 44.2 H PTT Ratio 1.6 Sodium Potassium Chloride Carbon Dioxide Anion Gap BUN Creatinine Est Cr Clr Drug Dosing Est GFR ( Amer) Est GFR (Non-Af Amer) BUN/Creatinine Ratio Glucose Lactate Calcium Magnesium Total Bilirubin AST ALT Alkaline Phosphatase Troponin I Total Protein Albumin Globulin Albumin/Globulin Ratio Procalcitonin 4.08 H 04/05/19 04/05/19 20:47 20:47 WBC RBC Hgb Hct MCV MCH MCHC RDW Std Deviation RDW Coeff of Abi Plt Count MPV Immature Gran % (Auto) Neut % (Auto) Lymph % (Auto) Atkinson % (Auto) Eos % (Auto) Baso % (Auto) Immature Gran # (Auto) Neut # (Auto) Lymph # (Auto) Atkinson # (Auto) Eos # (Auto) Baso # (Auto) PT INR APTT PTT Ratio Sodium 131 L Potassium 5.0 Chloride 97 L Carbon Dioxide 23 Anion Gap 10.0 BUN 88 H Creatinine 2.43 H Est Cr Clr Drug Dosing 32.7 Est GFR ( Amer) 29.2 Est GFR (Non-Af Amer) 25.2 BUN/Creatinine Ratio 36.3 H Glucose 175 H Lactate 1.6 Calcium 8.9 Magnesium 2.8 H Total Bilirubin 1.4 H AST 75 H ALT 55 Alkaline Phosphatase 288 H Troponin I 0.050 H* Total Protein 8.5 H Albumin 2.6 L Globulin 5.9 H Albumin/Globulin Ratio 0.4 L Procalcitonin Diagnostic Findings XR chest 1V portable HISTORY: Sepsis COMPARISON: Chest 03/11/2017. FINDINGS: No pneumothorax. The heart remains enlarged. There are poststernotomy changes. Small to moderate left pleural effusion and left basal densities persist. Improved aeration with the right lung. Mild congestive change remains unchanged. IMPRESSION: 1. No change in the moderate left pleural effusion and left basilar airspace opacities. 2. Right basilar airspace opacity has resolved in the interval. 3. Mild congestive change persists. Electronically signed by: Jadiel Washington M.D. 04/05/2019 9:28 PM PG Care Time/CCT Critical Care Time: Yes Total Critical Care Time: 35
--- NOTE | 2019-04-05 22:59 | Emergency Department Note ---
Entered by Viry Hernandez acting as a scribe for History of Present Illness General Chief complaint: Shortness of Breath/Dyspnea Stated complaint: SOB, WEAK, CLAMY Time Seen by Provider: 04/05/19 20:30 Source: patient and family () History of Present Illness Provider complaint: weakness Onset (ago): day(s) 4 Location: left and right Pain Consistency: + intermittent Quality: + other (weakness) Associated symptoms: + cough and + other (Positive coughing; negative abdominal pain; negative urinary frequency; negative unusual diarrhea; negative sore throat or congested nasal; negative general pain); no nausea/vomiting and no shortness of breath The patient is a 74 year old male who presents to the Emergency Room with complaints of intermittent weakness that started four days ago and has gotten increasing worse up until this point. The patient states that his symptoms have inhibited his ability to stabilize himself or sit in a chair. The patient denies urinary frequency, sore throat, abdominal pain, vomiting, shortness of breath, and general pain. The patient's states that he was incoherent a couple of times. The patients states that the patient had Aortic valve replacement surgery two years ago and has a history of heart failure and atrial fibrill ation. The patients states that the patients usual blood pressure is around 88/54. The patient is on Coumadin. Home Medications Home Medications Medication Instructions Recorded Confirmed Type acetaminophen [Tylenol Extra 500 mg PO Q4 PRN 04/05/19 04/05/19 History Strength] aspirin [Aspir-81] 81 mg PO DAILY 04/05/19 04/05/19 History atorvastatin 40 mg PO HS 04/05/19 04/05/19 History buspirone 2.5 mg PO BID 04/05/19 04/05/19 History docusate sodium 100 mg PO BID PRN 04/05/19 04/05/19 History gabapentin 600 mg PO TID 04/05/19 04/05/19 History glipizide 5 mg PO DAILY 04/05/19 04/05/19 History insulin glargine [Lantus U-100 0 unit SUBCUT DAILY 04/05/19 04/05/19 History Insulin] losartan 12.5 mg PO DAILY 04/05/19 04/05/19 History magnesium oxide 400 mg PO QAM 04/05/19 04/05/19 History metoprolol succinate 25 mg PO DAILY 04/05/19 04/05/19 History nitroglycerin [Nitrostat] 0.4 mg SUBLINGUAL DIRECTED PRN 04/05/19 04/05/19 History polyethylene glycol 3350 [Miralax] 17 g PO DAILY PRN 04/05/19 04/05/19 History sennosides 8.6 mg PO DAILY PRN 04/05/19 04/05/19 History spironolactone 25 mg PO DAILY 04/05/19 04/05/19 History tamsulosin [Flomax] 0.4 mg PO HS 04/05/19 04/05/19 History torsemide 20 mg PO QPM 04/05/19 04/05/19 History torsemide 40 mg PO QAM 04/05/19 04/05/19 History warfarin 5 mg PO DAILY 04/05/19 04/05/19 History zolpidem 5 mg PO HS PRN 04/05/19 04/05/19 History Allergies Allergy/AdvReac Type Severity Reaction Status Date / Time lisinopril AdvReac Intermediate COUGH Verified 04/05/19 21:24 Past Med/Surg History Medical History Sepsis (Acute 08/24/14) Atrial fibrillation (Chronic) Coronary artery disease (Chronic) Dyslipidemia (Chronic) Diabetes mellitus, type II (Chronic) Hypertension (Chronic) Stroke (Chronic) Difficult airway (Chronic) Diabetic neuropathy (Chronic) History of renal calculi (Chronic) Aortic stenosis (Chronic) "severe per echo 06/17/14" CHF (congestive heart failure) (Chronic) "LVEF 30-35% by echo 06/17/14" Ulcer of toe due to diabetes mellitus (Acute) Respiratory failure, acute Surgical History Status post coronary artery bypass grafting (Chronic) Status post cataract extraction (Chronic) Family History Unknown Family history non-contributory Social History Preferred Language: Vietnamese Beliefs That Will Affect Care: None Current Living Situation: Spouse Feels Safe at Home: Yes Safety Concerns: Feels Safe At This Time Smoking Status: Never smoker Hx Alcohol Use: Yes Alcohol type: beer Hx Substance Use: Yes substance use type: marijuana Review of Systems See HPI for pertinent positives & negatives. and A total of 10 systems reviewed and were otherwise negative Physical Exam Vital Signs Vital Signs - 24 hr 04/05/19 20:26 04/05/19 20:34 04/05/19 20:40 Temperature 38.6 C H Temperature Source Oral Sepsis Recent Fever Within 48 Hours Yes Sepsis New/Unexplained Change in Mental Status No Sepsis Action Taken by Nursing Physician Notified Oxygen Flow Rate - Titration Pulse Oximetry Post Tiitration Pulse Rate 122 H 117 H 121 H Pulse Rate [Right Finger] Pulse Rate from SpO2 Sensor 114 H 119 H Pulse Rhythm Regular Pulse Strength Normal Respiratory Rate 26 H Respiratory Effort / Characteristics Non-Labored Spontaneous Respiratory Depth Normal Respiratory Pattern Regular Blood Pressure 74/44 L 67/51 L Blood Pressure Mean 54 56 Blood Pressure Position Sitting Pulse Oximetry 90 95 95 Oxygen Delivery Method Room Air Nasal Cannula Oxygen Flow Rate 3 3 04/05/19 20:41 04/05/19 20:45 04/05/19 20:46 Temperature Temperature Source Sepsis Recent Fever Within 48 Hours Sepsis New/Unexplained Change in Mental Status Sepsis Action Taken by Nursing Oxygen Flow Rate - Titration Pulse Oximetry Post Tiitration Pulse Rate 109 H 79 Pulse Rate [Right Finger] Pulse Rate from SpO2 Sensor 110 H 123 H Pulse Rhythm Pulse Strength Respiratory Rate Respiratory Effort / Characteristics Respiratory Depth Respiratory Pattern Blood Pressure 79/55 L Blood Pressure Mean 63 Blood Pressure Position Pulse Oximetry 95 94 94 Oxygen Delivery Method Nasal Cannula Oxygen Flow Rate 2 3 3 04/05/19 21:00 04/05/19 21:04 04/05/19 21:15 Temperature Temperature Source Sepsis Recent Fever Within 48 Hours Sepsis New/Unexplained Change in Mental Status Sepsis Action Taken by Nursing Oxygen Flow Rate - Titration 3 Pulse Oximetry Post Tiitration 94 Pulse Rate 108 H 93 H Pulse Rate [Right Finger] Pulse Rate from SpO2 Sensor 112 H 112 H Pulse Rhythm Pulse Strength Respiratory Rate 31 H Respiratory Effort / Characteristics Respiratory Depth Respiratory Pattern Blood Pressure 62/44 L Blood Pressure Mean 50 Blood Pressure Position Pulse Oximetry 94 92 94 Oxygen Delivery Method Nasal Cannula Nasal Cannula Oxygen Flow Rate 2 3 04/05/19 21:16 04/05/19 21:27 04/05/19 21:30 Temperature Temperature Source Sepsis Recent Fever Within 48 Hours Sepsis New/Unexplained Change in Mental Status Sepsis Action Taken by Nursing Oxygen Flow Rate - Titration Pulse Oximetry Post Tiitration Pulse Rate 107 H 97 H Pulse Rate [Right Finger] 109 H Pulse Rate from SpO2 Sensor 105 H 104 H Pulse Rhythm Pulse Strength Respiratory Rate 31 H 23 18 Respiratory Effort / Characteristics Non-Labored Respiratory Depth Respiratory Pattern Blood Pressure 62/36 L Blood Pressure Mean 44 Blood Pressure Position Pulse Oximetry 94 95 96 Oxygen Delivery Method Nasal Cannula Oxygen Flow Rate 3 3 04/05/19 21:45 04/05/19 21:50 04/05/19 21:51 Temperature Temperature Source Sepsis Recent Fever Within 48 Hours Sepsis New/Unexplained Change in Mental Status Sepsis Action Taken by Nursing Oxygen Flow Rate - Titration Pulse Oximetry Post Tiitration Pulse Rate 98 H Pulse Rate [Right Finger] Pulse Rate from SpO2 Sensor 101 H 100 H 105 H Pulse Rhythm Pulse Strength Respiratory Rate Respiratory Effort / Characteristics Respiratory Depth Respiratory Pattern Blood Pressure 55/42 L Blood Pressure Mean 46 Blood Pressure Position Pulse Oximetry 95 95 95 Oxygen Delivery Method Nasal Cannula Oxygen Flow Rate 3 3 3 04/05/19 21:53 04/05/19 21:58 04/05/19 22:00 Temperature Temperature Source Sepsis Recent Fever Within 48 Hours Sepsis New/Unexplained Change in Mental Status Sepsis Action Taken by Nursing Oxygen Flow Rate - Titration Pulse Oximetry Post Tiitration Pulse Rate 100 H 103 H 104 H Pulse Rate [Right Finger] Pulse Rate from SpO2 Sensor 101 H 98 H 105 H Pulse Rhythm Pulse Strength Respiratory Rate 17 18 18 Respiratory Effort / Characteristics Respiratory Depth Respiratory Pattern Blood Pressure 67/42 L 76/41 L Blood Pressure Mean 50 52 Blood Pressure Position Pulse Oximetry 95 94 93 Oxygen Delivery Method Nasal Cannula Oxygen Flow Rate 3 04/05/19 22:01 04/05/19 22:15 04/05/19 22:17 Temperature Temperature Source Sepsis Recent Fever Within 48 Hours Sepsis New/Unexplained Change in Mental Status Sepsis Action Taken by Nursing Oxygen Flow Rate - Titration Pulse Oximetry Post Tiitration Pulse Rate 95 H 96 H 94 H Pulse Rate [Right Finger] Pulse Rate from SpO2 Sensor 102 H 98 H 111 H Pulse Rhythm Pulse Strength Respiratory Rate 29 H 23 17 Respiratory Effort / Characteristics Respiratory Depth Respiratory Pattern Blood Pressure 60/39 L Blood Pressure Mean 46 Blood Pressure Position Pulse Oximetry 95 95 95 Oxygen Delivery Method Oxygen Flow Rate 04/05/19 22:23 Temperature Temperature Source Sepsis Recent Fever Within 48 Hours Sepsis New/Unexplained Change in Mental Status Sepsis Action Taken by Nursing Oxygen Flow Rate - Titration Pulse Oximetry Post Tiitration Pulse Rate 112 H Pulse Rate [Right Finger] Pulse Rate from SpO2 Sensor 104 H Pulse Rhythm Pulse Strength Respiratory Rate 17 Respiratory Effort / Characteristics Respiratory Depth Respiratory Pattern Blood Pressure 102/86 Blood Pressure Mean 91 Blood Pressure Position Pulse Oximetry 96 Oxygen Delivery Method Oxygen Flow Rate GENERAL: Patient is in no acute distress. HEENT: No acute trauma, normocephalic atraumatic, mucous membranes moist, no nasal congestion, no scleral icterus, lips appear somewhat cyanotic NECK: No stridor, no adenopathy, no meningismus, trachea is midline. LUNGS: Scattered crackles on left side, no wheezing, equal breath sounds, no respiratory distress HEART: irregular and tachycardic, no obvious murmurs. ABDOMEN: Soft, nontender, bowel sounds positive, no hernias, no peritonitis. EXTREMITIES: No cyanosis, full range of motion of all the joints without pain or difficulty, no signs for acute trauma, moderate bilateral pedal edema NEUROLOGIC: Oriented x 3, no acute motor or sensory deficits, no focal weakness. SKIN: No rash, no jaundice, no diaphoresis, mottling to the knees and lower extremities was noticed. Course 2030: Past medical records reviewed. The patient was evaluated in room C3. A complete history and physical exam was performed. 2051: I discussed results with the patient and his family member. 2110: I reviewed the patient's case with Dr. Nikki XAVIER abo ut the patients condition. He has agreed to admit the patient and will evaluate the patient for further management. 2119: I reviewed the patient's case with Dr. Ciera Wayne. He will evaluate the patient for further management. 2131: I revaluated the patient and he appears better and states that he feels better 2143: I revaluated the patient and gave necessary updates. Consultations Consultation #1: 2110: I reviewed the patient's case with Dr. Nikki XAVIER about the patients condition. He has agreed to admit the patient and will evaluate the patient for further management. Time: 21:11 Consultation #2: 2119: I reviewed the patient's case with Dr. Oconer - [facility]. He will evaluate the patient for further management. Time: 21:20 Administered Medications Norepinephrine Bitartrate 8 mg (/ Dextrose) 508 mls @ 20.46 mls/hr IV .Q24H ZAHRA; Protocol Stop: 05/05/19 22:02 Last Admin: 04/05/19 22:16 Dose: 0.05 mcg/kg/min, 20.5 mls/hr Documented by: [id number] Cosigned by: [id number] Doxycycline Hyclate 100 mg/ (Dextrose) 110 mls @ 55 mls/hr IV BID@0000,1000 [facility] Stop: 04/13/19 00:29 Last Admin: 04/05/19 23:54 Dose: 55 mls/hr Documented by: [id number] Insulin Aspart (Novolog Flexpen) 0 units SC ACHS [facility] Stop: 05/05/19 23:44 Last Admin: 04/05/19 23:55 Dose: 1 units Documented by: [id number] Cosigned by: [id number] Insulin Glargine (Lantus Solostar Pen) 20 units SC BID [facility] Stop: 05/05/19 23:44 Last Admin: 04/05/19 23:54 Dose: 20 units Documented by: [id number] Cosigned by: [id number] Miscellaneous Information (Consult) 1 ea N/A UD PRN PRN Reason: Consult Stop: 05/05/19 20:36 Last Admin: 04/05/19 21:14 Dose: 1 ea Documented by: [id number] Zolpidem Tartrate (Ambien) 5 mg PO HS PRN PRN Reason: Sleep Stop: 05/05/19 23:15 Last Admin: 04/06/19 00:09 Dose: 5 mg Documented by: [id number] Discontinued Medications Albuterol (Duoneb) 3 ml NEB NOW STA Stop: 04/05/19 21:08 Last Admin: 04/05/19 21:20 Dose: 3 ml Documented by: [id number] Cefepime HCl (Maxipime) 2,000 mg in 20 mls @ 5 mls/min IV NOW STA; Protocol Stop: 04/05/19 20:40 Last Admin: 04/05/19 20:51 Dose: 5 mls/min Documented by: [id number] Vancomycin HCl 2,250 mg/ (Sodium Chloride) 545 mls @ 200 mls/hr IV NOW ONE; P rotocol Stop: 04/05/19 23:20 Last Admin: 04/05/19 20:59 Dose: 200 mls/hr Documented by: [id number] Acetaminophen (Ofirmev) 1,000 mg in 100 mls @ 400 mls/hr IV NOW STA Stop: 04/05/19 20:51 Last Infusion: 04/05/19 21:07 Dose: 0 mls/hr Documented by: [id number] Admin: 04/05/19 20:51 Dose: 400 mls/hr Documented by: [id number] Sodium Chloride (Nss 1000ml) 500 mls @ 999 mls/hr IV .Q31M ONE Stop: 04/05/19 21:13 Last Infusion: 04/05/19 21:30 Dose: 0 mls/hr Documented by: [id number] Admin: 04/05/19 20:52 Dose: 999 mls/hr Documented by: [id number] Sodium Chloride (Nss 1000ml) 500 mls @ 999 mls/hr IV .Q31M ONE Stop: 04/05/19 21:37 Last Infusion: 04/05/19 21:48 Dose: 0 mls/hr Documented by: [id number] Admin: 04/05/19 21:14 Dose: 999 mls/hr Documented by: [id number] Sodium Chloride (Nss 1000ml) 500 mls @ 999 mls/hr IV .Q31M ONE Stop: 04/05/19 22:05 Last Infusion: 04/05/19 22:29 Dose: 0 mls/hr Documented by: [id number] Admin: 04/05/19 21:55 Dose: 999 mls/hr Documented by: [id number] Piperacillin Sod/Tazobactam (Sod 4.5 gm/ Dextrose) 120 mls @ 200 mls/hr IV NOW ONE; Protocol Stop: 04/06/19 00:20 Last Admin: 04/05/19 23:54 Dose: 200 mls/hr Documented by: [id number] Medical Decision Making Differential Diagnosis Differential diagnosis includes: Sepsis, bacteremia, urinary tract infection, cellulitis, pneumonia, endocarditis, electrolyte imbalance, renal failure, congestive heart failure, myocardial infarction as well as others were entertained. Medical Records Attestation: I reviewed the patient's medical records. Home Medications Current Medication List: was personally reviewed by me Laboratory Data Attestation: I reviewed the patient's lab results. Result diagrams: 04/05/19 20:47 04/05/19 20:47 Lab Results 04/05/19 04/05/19 04/05/19 Range/Units 20:47 20:47 20:47 WBC 15.06 H (4.8-10.8) K/uL RBC 4.51 L (4.7-6.1) M/uL Hgb 13.0 L (14.0-18.0) g/dL Hct 37.7 L (42-52) % MCV 83.6 (80-100) fL MCH 28.8 (25-34) pg MCHC 34.5 (32-36) g/dL RDW Std Deviation 52.9 H (36.4-46.3) fL RDW Coeff of Abi 17.2 H (11.5-14.5) % Plt Count 197 (130-400) K/uL MPV 10.8 H (7.4-10.4) fL Immature Gran % (Auto) 0.3 % Neut % (Auto) 91.7 % Lymph % (Auto) 2.5 % [place] % (Auto) 5.3 % Eos % (Auto) 0.1 % Baso % (Auto) 0.1 % Immature Gran # (Auto) 0.05 H (0.00-0.02) K/uL Neut # (Auto) 13.82 H (1.4-6.5) K/uL Lymph # (Auto) 0.37 L (1.2-3.4) K/uL [place] # (Auto) 0.80 H (0.11-0.59) K/uL Eos # (Auto) 0.01 (0-0.5) K/uL Baso # (Auto) 0.01 (0-0.2) K/uL PT 32.3 H (9.0-12.0) Seconds INR 3.4 H (0.9-1.1) APTT 44.2 H (21.0-31.0) Seconds PTT Ratio 1.6 Sodium (136-145) mmol/L Potassium (3.5-5.1) mmol/L Chloride (98-107) mmol/L Carbon Dioxide (21-32) mmol/L Anion Gap (3-11) BUN (7-18) mg/dl Creatinine (0.6-1.4) mg/dl Est Cr Clr Drug Dosing ml/min Est GFR ( Amer) Est GFR (Non-Af Amer) BUN/Creatinine Ratio (10-20) Glucose (70-99) mg/dl Lactate (0.4-2.0) mmol/L Calcium (8.5-10.1) mg/dl Magnesium (1.8-2.4) mg/dl Total Bilirubin (0.2-1) mg/dl AST (15-37) U/L ALT (12-78) U/L Alkaline Phosphatase (45-117) U/L Troponin I (0-0.045) ng/ml Total Protein (6.4-8.2) gm/dl Albumin (3.4-5.0) gm/dl Globulin (2.5-4.0) gm/dl Albumin/Globulin Ratio (0.9-2) Procalcitonin 4.08 H (0-0.5) ng/ml 04/05/19 04/05/19 Range/Units 20:47 20:47 WBC (4.8-10.8) K/uL RBC (4.7-6.1) M/uL Hgb (14.0-18.0) g/dL Hct (42-52) % MCV (80-100) fL MCH (25-34) pg MCHC (32-36) g/dL RDW Std Deviation (36.4-46.3) fL RDW Coeff of Abi (11.5-14.5) % Plt Count (130-400) K/uL MPV (7.4-10.4) fL Immature Gran % (Auto) % Neut % (Auto) % Lymph % (Auto) % [place] % (Auto) % Eos % (Auto) % Baso % (Auto) % Immature Gran # (Auto) (0.00-0.02) K/uL Neut # (Auto) (1.4-6.5) K/uL Lymph # (Auto) (1.2-3.4) K/uL [place] # (Auto) (0.11-0.59) K/uL Eos # (Auto) (0-0.5) K/uL Baso # (Auto) (0-0.2) K/uL PT (9.0-12.0) Seconds INR (0.9-1.1) APTT (21.0-31.0) Seconds PTT Ratio Sodium 131 L (136-145) mmol/L Potassium 5.0 (3.5-5.1) mmol/L Chloride 97 L (98-107) mmol/L Carbon Dioxide 23 (21-32) mmol/L Anion Gap 10.0 (3-11) BUN 88 H (7-18) mg/dl Creatinine 2.43 H (0.6-1.4) mg/dl Est Cr Clr Drug Dosing 32.7 ml/min Est GFR ( Amer) 29.2 Est GFR (Non-Af Amer) 25.2 BUN/Creatinine Ratio 36.3 H (10-20) Glucose 175 H (70-99) mg/dl Lactate 1.6 (0.4-2.0) mmol/L Calcium 8.9 (8.5-10.1) mg/dl Magnesium 2.8 H (1.8-2.4) mg/dl Total Bilirubin 1.4 H (0.2-1) mg/dl AST 75 H (15-37) U/L ALT 55 (12-78) U/L Alkaline Phosphatase 288 H (45-117) U/L Troponin I 0.050 H* (0-0.045) ng/ml Total Protein 8.5 H (6.4-8.2) gm/dl Albumin 2.6 L (3.4-5.0) gm/dl Globulin 5.9 H (2.5-4.0) gm/dl Albumin/Globulin Ratio 0.4 L (0.9-2) Procalcitonin (0-0.5) ng/ml Imaging Data Radiologist's Impression: Radiology results as stated below per my review and the radiologist's interpretation: XR chest 1V portable HISTORY: Sepsis COMPARISON: Chest 03/11/2017. FINDINGS: No pneumothorax. The heart remains enlarged. There are poststernotomy changes. Small to moderate left pleural effusion and left basal densities persist. Improved aeration with the right lung. Mild congestive change remains unchanged. IMPRESSION: 1. No change in the moderate left pleural effusion and left basilar airspace op acities. 2. Right basilar airspace opacity has resolved in the interval. 3. Mild congestive change persists. Electronically signed by: Jadiel Washington M.D. 04/05/2019 9:28 PM ECG Data Attestation: I personally reviewed and interpreted this ECG as follows: Indication: tachycardia Rate (beats per minute): 119 Rhythm: atrial fibrillation (Afib with RBBB) Findings: + other (Old inferior infarct) and + RBBB; no ST elevation Blood Pressure Blood Pressure Findings: Normal blood pressure MDM Narrative There is a moderate leukocytosis at 15,000, this is consistent with infection. No concerning anemia. There is a normal platelet count. INR is elevated at 3.4, this is consistent with his Coumadin use. Renal panel testing shows some acute renal failure with a creatinine of 2.43. With the high creatinine, I do expect some dehydration. There were some LFT elevations. Lactic acid level was normal, this makes severe sepsis less likely. Procalcitonin was elevated. EKG shows a rapid A. fib, no acute ischemia. Cardiac enzyme testing x1 is slightly elevated. Cardiac injury or strain or even mismatch could be causing this troponin elevation. Chest film appears to show a left lower lung pneumonia with effusion. No current CHF. Blood cultures are pending. Urinalysis is pending. The patient presents hypotensive, cyanotic and somewhat mottled. He has felt weak. He is febrile. He was aggressively managed. Care was taken to not over hydrate as he has a significant cardiac history and history of CHF. The patient was given a DuoNeb, IV cefepime and IV vancomycin. He received IV Tylenol. He received 1500 cc of IV saline, 500 cc at a time. After about 1 L of fluid, the patient looked markedly improved. He was no longer cyanotic or mottled. He felt improved. He did not seem in any distress. His blood pressure was still low however, he typically runs a BP of around 80 systolic. Patient is septic. He is septic from a pneumonia I suspect. I did speak with the ICU attending, I spoke with case management. The on-call hospitalist was consulted. The patient and his family were made aware of all findings. Impression & Plan Sepsis, Pneumonia, Hypotension, Tachycardia, Acute kidney injury Critical Care Time Critical Care Time: Yes Total Critical Care Time: 40 I have personally spent greater than 40 minutes of critical care time in the direct management of this patient. This includes bedside care, interpretation of diagnostic studies, and testing, discussion with consultants, patient, and family members, and other required patient management activities. This 40 minutes is in excess of all separately billable procedures. Discharge Plan Visit Data *Final* Discharge Date/Time: 04/05/19 22:42 Chief Complaint: Shortness of Breath/Dyspnea Stated Complaint: SOB, WEAK, CLAMY ED Provider: Kolton Zimmer Discharge Problem: Sepsis, Pneumonia, Hypotension, Tachycardia, Acute kidney injury Patient Disposition: Admitted As Inpatient Discharge Instructions Interventions: ED Discharge Assessment Last Done: 04/05/19 22:42 Discharge Problem: Sepsis Qualifiers: Sepsis type: sepsis due to unspecified organism Qualified Code(s): A41.9 - Sepsis, unspecified organism Pneumonia Qualifiers: Pneumonia type: due to unspecified organism Laterality: left Lung location: lower lobe of lung Qualified Code(s): J18.1 - Lobar pneumonia, unspecified organism Hypotension Qualifiers: Hypotension type: unspecified hypotension type Qualified Code(s): I95.9 - Hypo tension, unspecified The scribe's documentation has been prepared under my direction and personally reviewed by me in its entirety. I confirm that the note above accurately reflects all work, treatment, procedures, and medical decision making performed by me.
[2019-04-05] MEDS ORDERED: ZOLPIDEM TARTRATE 5 MG TAB PO PRN (23:16)
[2019-04-05] MEDS ORDERED: NITROGLYCERIN SL 0.4 MG/TAB TAB SL PRN (23:16)
[2019-04-05] MEDS ORDERED: ICU PROTOCOL FOR HYPERGLYCEMIA PRN (23:16)
[2019-04-05] MEDS ORDERED: GLUCOSE 10 TABS/TUBE PO PRN (23:16)
[2019-04-05] MEDS ORDERED: GLUCOSE 40% GEL 15 GM TUBE PO PRN (23:16)
[2019-04-05] MEDS ORDERED: DEXTROSE 50% 50 ML SYRINGE IV PRN (23:16)
[2019-04-05] MEDS ORDERED: GLUCAGON FOR INJ 1 MG VIAL SQ PRN (23:16)
[2019-04-05] MEDS ORDERED: DOXY~PHARMACY CONSULT IN PROGRESS PRN (23:30)
[2019-04-05] MEDS ORDERED: PIPERACILL/TAZOBAC CONSULT ACTIVE PRN (23:33)
[2019-04-05] MEDS ORDERED: PIPERACILLIN/TAZOBACTAM 4.5 GM in DEXTROSE 5% 100 ML IV ONE (23:45)
[2019-04-05] MEDS ORDERED: INSULIN GLARGINE SOLOSTAR 100 UNITS/ML 3 ML PEN SC SCH (23:45)
[2019-04-05] MEDS ORDERED: INSULIN ASPART 100 UNITS/ML 3 ML PEN SC SCH (23:45)
[2019-04-05] MEDS ORDERED: PHARMACY GLYCEMIC MGMT CONSULT PRN (23:48)
[2019-04-05] MEDS: DOXYCYCLINE HYCLATE 100 MG in DEXTROSE 5% 100 ML IV SCH (23:54)
[2019-04-06 00:36] LABS: Appearance Urine Clear (Clear); Bilirubin Urine Negative (Negative); Color Urine Yellow; Glucose Urine UA Negative (Negative); Ketones Urine Negative (Negative); Leukocyte Esterase Urine Negative (Negative); Nitrite Urine Negative (Negative); Protein Urine Negative (Negative); Specific Gravity Urine 1.018 (1.000-1.030); Urobilinogen Urine Negative (Negative)
[2019-04-06] MEDS ORDERED: INSULIN ASPART 100 UNITS/ML 3 ML PEN SC SCH (04:00)
[2019-04-06] MEDS: PIPERACILLIN/TAZOBACTAM 4.5 GM in DEXTROSE 5% 100 ML IV SCH ×3 (04:25→20:29)
[2019-04-06] MEDS ORDERED: SEVERE STRESS LEVEL ONE (04:27)
[2019-04-06] MEDS ORDERED: INSULIN PROTOCOL GOAL RANGE ONE (04:27)
[2019-04-06 04:36] LABS: Basophils # (auto) 0.02 K/uL (0-0.2); Basophils % (auto) 0.1 %; Hematocrit (blood only) 35.2 % (42-52); Hemoglobin 11.5 g/dL (14.0-18.0); Immature Granulocytes # (auto) 0.11 K/uL (0.00-0.02); Immature Granulocytes % (auto) 0.6 %; Lymphocytes # (auto) 0.44 K/uL (1.2-3.4); Lymphocytes % (auto) 2.3 %; Mean Corpuscular Hgb Conc 32.7 g/dL (32-36); Mean Corpuscular Volume 83.6 fL (80-100); Mean Platelet Volume 10.8 fL (7.4-10.4); Monocytes # (auto) 1.56 K/uL (0.11-0.59); Monocytes % (auto) 8.2 %; Neutrophils # (auto) 16.89 K/uL (1.4-6.5); Neutrophils % (auto) 88.8 %; Platelet Count 201 K/uL (130-400); RDW Coefficient of Variation 17.3 % (11.5-14.5); Red Blood Count 4.21 M/uL (4.7-6.1); White Blood Count 19.02 K/uL (4.8-10.8)
[2019-04-06] MEDS ORDERED: NovoLIN-R BOLUS FROM BAG IV ONE (04:45)
[2019-04-06] MEDS ORDERED: INSULIN REGULAR 250 UNITS in SODIUM CHLORIDE 0.9% 247.5 ML IV SCH (04:45)
[2019-04-06 05:01] LABS: Albumin Level 2.2 gm/dl (3.4-5.0); BUN Creatinine Ratio 39.2 (10-20); Creatinine Clr Calc Pharmacy 39.5 ml/min; Est GFR (African American) 37.2; Est GFR (Non-African American) 32.1; Magnesium 2.6 mg/dl (1.8-2.4); Potassium 4.6 mmol/L (3.5-5.1)
[2019-04-06 05:03] LABS: INR 3.8 (0.9-1.1)
[2019-04-06 05:07] LABS: Albumin Globulin Ratio 0.4 (0.9-2); Bilirubin,Total 1.8 mg/dl (0.2-1); Globulin 5.2 gm/dl (2.5-4.0); Phosphorus 3.1 mg/dl (2.5-4.9); Total Protein 7.4 gm/dl (6.4-8.2); Troponin I 0.05 ng/ml (0-0.045)
[2019-04-06 06:34] LABS: Estimated Average Glucose 180 mg/dl
--- NOTE | 2019-04-06 07:35 | Critical Care Progress Note ---
Date of Service April 06, 2019 Assessment & Plan (1) Septic shock: Neuro- awake alert CV- septic shock. careful fluids with cardiac disease. norepinephrine for vasopressor support. titrate for SBP >90 discussed central line risks and benefits and the risk of peripheral pressors. He would like to hold off on the central line for now. CHF previous EF 25-30. CAD, afib. aspirin, atorvastatin. hold metoprolol and losartan, hold his diuretics Pulmonary- L sided pneumonia. bedside ultrasound with pleural effusion will plan on thoracentesis to rule out infection. sat well on NC. titrate to keep sat >92% ID- septic shock due to pneumonia. follow cultures. vancomycin, piperacillin- tazobactam, and doxycycline Renal- acute renal failure prerenal vs ATN. cr impriving careful fluids. watch UOP GI- diet as tolerated. LFTs up likely related to sepsis-improved Heme- INR 3.8 from warfarin. Endocrine- keep blood sugars <180 on insulin drip Dispo- continue ICU care for hemodynamic support I have personally spent 40 minutes of critical care time in the direct manageme nt of this patient. This is a life/limb threatening event. This includes time spent evaluating patient, direct bedside care, chart review, placing orders, interpretation of diagnostic studies, discussion with consultants, patient, and/or family members regarding treatment decisions, as well as other required patient management activities. This time is exclusive of all separately billable procedures, and teaching time and separate from and in addition to any other critical care service time. (2) Pneumonia: (3) Acute renal failure: Subjective feeling slightly better remains on norepinephrine Physical Exam Physical Exam: Constitutional: Comfortable NAD HEENT: normocephalic atraumatic. MMM. CV: RRR nl s1,s2 systolic murmurs no rubs or gallops Lungs: crackles to base on L. no accessory muscle use Abd: soft nontender nondistended edema to abd. normal bowel sounds Ext: + L edema. no cyanosis, no clubbing Skin: warm dry Neuro: alert and oriented. moving all extremities Psych: normal mood and affect Results & Data Vital Signs (Past 12 Hours) Vital Signs Temp Pulse Pulse Resp BP BP Pulse Ox 04/06/19 07:03 103 H 101/48 L 96 04/06/19 06:31 105 H 101/53 L 90 07/08/19 06:26 102 H 128/40 L 95 04/06/19 06:04 108 H 132/76 94 04/06/19 05:29 109 H 114/66 95 04/06/19 05:01 112 H 114/66 94 04/06/19 04:01 38.2 C H 104 H 91/55 L 96 04/06/19 03:00 100 H 119/109 H 87 L 04/06/19 02:00 93 H 124/42 L 95 04/06/19 01:01 107 H 104/56 L 95 04/06/19 00:01 98 H 98/42 L 96 04/05/19 23:16 37.6 C H 104 H 20 102/64 96 04/05/19 23:03 37.4 C 105 H 102/64 95 04/05/19 22:31 38.3 C H 04/05/19 22:30 104 H 21 119/60 95 04/05/19 22:25 99 H 21 108/81 95 04/05/19 22:23 112 H 17 102/86 96 04/05/19 22:17 94 H 17 60/39 L 95 04/05/19 22:15 96 H 23 95 04/05/19 22:01 95 H 29 H 95 04/05/19 22:00 104 H 18 93 04/05/19 21:58 103 H 18 76/41 L 94 04/05/19 21:53 100 H 17 67/42 L 95 04/05/19 21:51 98 H 95 04/05/19 21:50 55/42 L 95 04/05/19 21:45 95 04/05/19 21:30 97 H 18 62/36 L 96 04/05/19 21:27 109 H 23 95 04/05/19 21:16 107 H 31 H 94 04/05/19 21:15 93 H 31 H 94 04/05/19 21:04 92 04/05/19 21:00 108 H 62/44 L 94 04/05/19 20:46 79 79/55 L 94 04/05/19 20:45 109 H 94 04/05/19 20:41 95 04/05/19 20:40 121 H 95 04/05/19 20:34 117 H 67/51 L 95 04/05/19 20:26 38.6 C H 122 H 26 H 74/44 L 90 Laboratory Results Laboratory Results - last 24 hr 04/05/19 04/05/19 04/05/19 20:47 20:47 20:47 WBC 15.06 H RBC 4.51 L Hgb 13.0 L Hct 37.7 L MCV 83.6 MCH 28.8 MCHC 34.5 RDW Std Deviation 52.9 H RDW Coeff of Abi 17.2 H Plt Count 197 MPV 10.8 H Immature Gran % (Auto) 0.3 Neut % (Auto) 91.7 Lymph % (Auto) 2.5 [place] % (Auto) 5.3 Eos % (Auto) 0.1 Baso % (Auto) 0.1 Immature Gran # (Auto) 0.05 H Neut # (Auto) 13.82 H Lymph # (Auto) 0.37 L [place] # (Auto) 0.80 H Eos # (Auto) 0.01 Baso # (Auto) 0.01 PT 32.3 H INR 3.4 H APTT 44.2 H PTT Ratio 1.6 Sodium Potassium Chloride Carbon Dioxide Anion Gap BUN Creatinine Est Cr Clr Drug Dosing Est GFR ( Amer) Est GFR (Non-Af Amer) BUN/Creatinine Ratio Glucose POC Glucose Estimat Average Glucose Hemoglobin A1c Lactate Calcium Phosphorus Magnesium Total Bilirubin AST ALT Alkaline Phosphatase Troponin I Total Protein Albumin Globulin Albumin/Globulin Ratio Procalcitonin 4.08 H Urine Color Urine Appearance Urine pH Ur Specific Cost Urine Protein Urine Glucose (UA) Urine Ketones Urine Blood Urine Nitrite Urine Bilirubin Urine Urobilinogen Ur Leukocyte Esterase Nasal Screen MRSA (PCR) Random Vancomycin 04/05/19 04/05/19 04/05/19 20:47 20:47 23:48 WBC RBC Hgb Hct MCV MCH MCHC RDW Std Deviation RDW Coeff of Abi Plt Count MPV Immature Gran % (Auto) Neut % (Auto) Lymph % (Auto) [place] % (Auto) Eos % (Auto) Baso % (Auto) Immature Gran # (Auto) Neut # (Auto) Lymph # (Auto) [place] # (Auto) Eos # (Auto) Baso # (Auto) PT INR APTT PTT Ratio Sodium 131 L Potassium 5.0 Chloride 97 L Carbon Dioxide 23 Anion Gap 10.0 BUN 88 H Creatinine 2.43 H Est Cr Clr Drug Dosing 32.7 Est GFR ( Amer) 29.2 Est GFR (Non-Af Amer) 25.2 BUN/Creatinine Ratio 36.3 H Glucose 175 H POC Glucose 183 H Estimat Average Glucose Hemoglobin A1c Lactate 1.6 Calcium 8.9 Phosphorus Magnesium 2.8 H Total Bilirubin 1.4 H AST 75 H ALT 55 Alkaline Phosphatase 288 H Troponin I 0.050 H* Total Protein 8.5 H Albumin 2.6 L Globulin 5.9 H Albumin/Globulin Ratio 0.4 L Procalcitonin Urine Color Urine Appearance Urine pH Ur Specific Cost Urine Protein Urine Glucose (UA) Urine Ketones Urine Blood Urine Nitrite Urine Bilirubin Urine Urobilinogen Ur Leukocyte Esterase Nasal Screen MRSA (PCR) Random Vancomycin 04/05/19 04/05/19 04/06/19 23:50 23:50 04:00 WBC 19.02 H RBC 4.21 L Hgb 11.5 L Hct 35.2 L MCV 83.6 MCH 27.3 MCHC 32.7 RDW Std Deviation 53.0 H RDW Coeff of Abi 17.3 H Plt Count 201 MPV 10.8 H Immature Gran % (Auto) 0.6 Neut % (Auto) 88.8 Lymph % (Auto) 2.3 [place] % (Auto) 8.2 Eos % (Auto) 0.0 Baso % (Auto) 0.1 Immature Gran # (Auto) 0.11 H Neut # (Auto) 16.89 H Lymph # (Auto) 0.44 L [place] # (Auto) 1.56 H Eos # (Auto) 0.00 Baso # (Auto) 0.02 PT INR APTT PTT Ratio Sodium Potassium Chloride Carbon Dioxide Anion Gap BUN Creatinine Est Cr Clr Drug Dosing Est GFR ( Amer) Est GFR (Non-Af Amer) BUN/Creatinine Ratio Glucose POC Glucose Estimat Average Glucose Hemoglobin A1c Lactate Calcium Phosphorus Magnesium Total Bilirubin AST ALT Alkaline Phosphatase Troponin I Total Protein Albumin Globulin Albumin/Globulin Ratio Procalcitonin Urine Color Yellow Urine Appearance Clear Urine pH 5.0 Ur Specific Cost 1.018 Urine Protein Negative Urine Glucose (UA) Negative Urine Ketones Negative Urine Blood Negative Urine Nitrite Negative Urine Bilirubin Negative Urine Urobilinogen Negative Ur Leukocyte Esterase Negative Nasal Screen MRSA (PCR) Negative Random Vancomycin 04/06/19 04/06/19 04/06/19 04:00 04:00 04:00 WBC RBC Hgb Hct MCV MCH MCHC RDW Std Deviation RDW Coeff of Abi Plt Count MPV Immature Gran % (Auto) Neut % (Auto) Lymph % (Auto) [place] % (Auto) Eos % (Auto) Baso % (Auto) Immature Gran # (Auto) Neut # (Auto) Lymph # (Auto) [place] # (Auto) Eos # (Auto) Baso # (Auto) PT 35.0 H INR 3.8 H APTT PTT Ratio Sodium 132 L Potassium 4.6 Chloride 101 Carbon Dioxide 21 Anion Gap 10.0 BUN 78 H Creatinine 1.99 H D Est Cr Clr Drug Dosing 39.5 Est GFR ( Amer) 37.2 Est GFR (Non-Af Amer) 32.1 BUN/Creatinine Ratio 39.2 H Glucose 216 H POC Glucose Estimat Average Glucose 180 Hemoglobin A1c 7.9 H Lactate Calcium 8.0 L Phosphorus 3.1 Magnesium 2.6 H Total Bilirubin 1.8 H AST 51 H ALT 46 Alkaline Phosphatase 230 H Troponin I 0.050 H* Total Protein 7.4 Albumin 2.2 L Globulin 5.2 H Albumin/Globulin Ratio 0.4 L Procalcitonin Urine Color Urine Appearance Urine pH Ur Specific Cost Urine Protein Urine Glucose (UA) Urine Ketones Urine Blood Urine Nitrite Urine Bilirubin Urine Urobilinogen Ur Leukocyte Esterase Nasal Screen MRSA (PCR) Random Vancomycin 04/06/19 04/06/19 04/06/19 04:00 04:00 04:19 WBC RBC Hgb Hct MCV MCH MCHC RDW Std Deviation RDW Coeff of Abi Plt Count MPV Immature Gran % (Auto) Neut % (Auto) Lymph % (Auto) [place] % (Auto) Eos % (Auto) Baso % (Auto) Immature Gran # (Auto) Neut # (Auto) Lymph # (Auto) [place] # (Auto) Eos # (Auto) Baso # (Auto) PT INR APTT PTT Ratio Sodium Potassium Chloride Carbon Dioxide Anion Gap BUN Creatinine Est Cr Clr Drug Dosing Est GFR ( Amer) Est GFR (Non-Af Amer) BUN/Creatinine Ratio Glucose POC Glucose 248 H Estimat Average Glucose Hemoglobin A1c Lactate Calcium Phosphorus Magnesium Total Bilirubin AST ALT Alkaline Phosphatase Troponin I Total Protein Albumin Globulin Albumin/Globulin Ratio Procalcitonin 4.70 H Urine Color Urine Appearance Urine pH Ur Specific Cost Urine Protein Urine Glucose (UA) Urine Ketones Urine Blood Urine Nitrite Urine Bilirubin Urine Urobilinogen Ur Leukocyte Esterase Nasal Screen MRSA (PCR) Random Vancomycin 20.1 04/06/19 04/06/19 06:03 07:16 WBC RBC Hgb Hct MCV MCH MCHC RDW Std Deviation RDW Coeff of Abi Plt Count MPV Immature Gran % (Auto) Neut % (Auto) Lymph % (Auto) [place] % (Auto) Eos % (Auto) Baso % (Auto) Immature Gran # (Auto) Neut # (Auto) Lymph # (Auto) [place] # (Auto) Eos # (Auto) Baso # (Auto) PT INR APTT PTT Ratio Sodium Potassium Chloride Carbon Dioxide Anion Gap BUN Creatinine Est Cr Clr Drug Dosing Est GFR ( Amer) Est GFR (Non-Af Amer) BUN/Creatinine Ratio Glucose POC Glucose 193 H 171 H Estimat Average Glucose Hemoglobin A1c Lactate Calcium Phosphorus Magnesium Total Bilirubin AST ALT Alkaline Phosphatase Troponin I Total Protein Albumin Globulin Albumin/Globulin Ratio Procalcitonin Urine Color Urine Appearance Urine pH Ur Specific Cost Urine Protein Urine Glucose (UA) Urine Ketones Urine Blood Urine Nitrite Urine Bilirubin Urine Urobilinogen Ur Leukocyte Esterase Nasal Screen MRSA (PCR) Random Vancomycin PG Care Time/CCT Critical Care Time: Yes Total Critical Care Time: 40
[2019-04-06] MEDS: INSULIN ASPART 100 UNITS/ML 3 ML PEN SC SCH ×6 (07:40→20:36)
[2019-04-06] MEDS: DOCUSATE SODIUM 100 MG CAP PO PRN (08:30)
[2019-04-06] MEDS: ASPIRIN 81 MG ECTAB PO SCH (08:30)
[2019-04-06] MEDS: MAGNESIUM OXIDE 400 MG TAB PO SCH (08:30)
[2019-04-06] MEDS: SENNA 8.6 MG TAB PO PRN (08:30)
[2019-04-06] MEDS ORDERED: PERFLUTREN LIPID MICROSPHERE (DEFINITY) IV ONE (08:53)
[2019-04-06] MEDS ORDERED: INSULIN GLARGINE SOLOSTAR 100 UNITS/ML 3 ML PEN SC SCH ×2 (09:00→21:00)
[2019-04-06] MEDS ORDERED: GABAPENTIN 600 MG TAB PO SCH (09:00)
[2019-04-06] MEDS: GABAPENTIN 100 MG CAP PO SCH ×3 (09:55→20:26)
[2019-04-06] MEDS: DOXYCYCLINE HYCLATE 100 MG in DEXTROSE 5% 100 ML IV SCH (09:56)
--- NOTE | 2019-04-06 11:51 | Pharmacy Report ---
Pharmacy Glycemic Short Note 2 - Date of Service April 06, 2019 - Glycemic Short BSG Results (Last 24 hours): 04/05/19 04/05/19 04/06/19 20:47 23:48 04:00 Glucose 175 H 216 H POC Glucose 183 H 04/06/19 04/06/19 04/06/19 04:19 06:03 07:16 Glucose POC Glucose 248 H 193 H 171 H 04/06/19 04/06/19 08:18 09:18 Glucose POC Glucose 169 H 150 H OUTPATIENT ANTIDIABETIC REGIMEN: * glipizide 5mg QD * Lantus 75-100 units QD-per patient, dose varies based on BSG * HbA1c: 7.9% ASSESSMENT: * Patient admitted with septic shock requiring pressors, started on an insulin drip overnight. As the patient remains on pressors and insulin drip rates remains at 3.1 units/hr, will hold off on drip transition. The patient is ordered a diet, but PO intake has been minimal thus far. The norepinephrine drip remains on but at a low dose and is expected to be weaned off soon. I do anticipate transition may be feasible this evening or tomorrow morning once one insulin infusion rate decreases, blood sugars remain in range, and pressors come off. I will place a pending order to assess for possible drip transition once the following parameters are met: insulin infusion rate < 1.5 units/hr and BSG < 180 X 2. I have also ordered lantus to assist with eventual drip transition. Given the wide variability in patient's home dose and minimal PO intake, will use a weight based stress of 2 and 3 dosing for lantus to start. PLAN FOR INPATIENT GLYCEMIC CONTROL: * Hold outpatient oral diabetes medications * IV insulin infusion per severe stress protocol * Goal Range 110 - 180 mg/dl * In the critical care setting, continuous IV insulin infusion has been shown to be the best method for achieving glycemic targets. * Basal insulin * Lantus 20 units SQ this morning * Lantus 25 units SQ this evening (will need more if drip transition to be attempted) * Bolus insulin * NovoLog per scale ACHS or Q6hrs while NPO * Nutritional / Prandial insulin per insulin infusion adjustment calculator PLAN FOR DISCHARGE: *
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
--- NOTE | 2019-04-06 14:14 | XRay Report ---
XR chest 1V portable HISTORY: 74 years-old Male S/P left thoracentesis follow-up study in a patient with recent left-side d thoracentesis COMPARISON: Chest radiograph 04/05/2019 TECHNIQUE: Portable AP view the chest FINDINGS: Cardiac silhouette is enlarged, unchanged. Prior median sternotomy. Calcification of the thoracic aor tic arch. Mildly decreased size of the left pleural effusion. No postprocedural pneumothorax identifi ed. Pulmonary vascular congestion with interstitial coarsening persists along with left midlung and l eft lung base opacities. Probable trace right pleural effusion. Degenerative changes of the shoulders and spine. IMPRESSION: 1. Mildly decreased size of the left pleural effusion status post thoracentesis. No postprocedural pn eumothorax. 2. Cardiomegaly with persistent congestive changes. 3. Left midlung and left basilar consolidation redemonstrated. The above report was generated using voice recognition software. It may contain grammatical, syntax o r spelling errors. Electronically signed by: Dawson Barker M.D. 04/06/2019 2:13 PM
[2019-04-06 14:21] LABS: Mononuclear WBC Pleural 9.6 %; Polynuclear WBC Pleural 90.4 %; RBC Pleural Fluid (A) 20000 /uL; Source Pleural Fluid LEFT LUNG; WBC Pleural Fluid (A) 8644 /uL
[2019-04-06 14:22] LABS: Amylase Pleural Fluid 19 U/L; LDH Pleural Fluid 469 U/L; Total Protein Pleural Fluid 3.7 g/dl
--- NOTE | 2019-04-06 14:40 | Procedure Note ---
Procedure Note Date of Service April 06, 2019 Note L thoracentesis after informed consent fluid pocket identified using ultrasound area anesthetized with lidocaine initial using lateral approach but patient with significant pain so aborted and used posterior approach. was difficult to get needle through pleural which seemed to be inflammed thoracentesis catheter inserted with difficulty and 700 ml of cloudy yellow fluid obtained patient tolerated procedure well fluid sent for culture cell count, LDH glucose protein and cytology only small amount of fluid on post ultrasound. may need chest tube Coding
--- NOTE | 2019-04-06 15:16 | Hospitalist Progress Note ---
Date of Service April 06, 2019 Assessment & Plan (1) Septic shock: Septic shock secondary to community acquired pneumonia. Continues to undergo treatment in the ICU. Maintained on Zosyn and doxycycline. Thoracentesis today on the left side revealed a fluid appeared to be completely drained with the thoracentesis, however, will monitor closely for need for chest tube. Currently patient is resting comfortably on minimal norepinephrine for pressor support. Continue ICU management. (2) Pneumonia: Chronic respiratory failure with 2 L nasal cannula. Continue treatment as above for pneumonia. (3) S/P TAVR (transcatheter aortic valve replacement): (4) Diabetes mellitus, type II: Insulin drip, management per ICU. (5) Coronary artery disease: Medical management with aspirin, Lipitor. Losartan on hold in setting of MARISA. Toprol-XL on hold. Patient has EF 35% and is also on spironolactone which is not being given at this time. Cardiology was consulted. (6) Ischemic cardiomyopathy: As above. Patient is declining defibrillator placement (7) Atrial fibrillation: Continue Coumadin, Toprol on hold. Hemodynamic management per ICU. (8) Acute kidney injury: Likely secondary to septic shock. Continue IV fluids, avoid nephrotoxic substances. Hold losartan. (9) DVT (deep venous thrombosis): Therapeutic on Coumadin Full code Disposition-continue ICU management Ronit Stein DO [facility] Hospitalist Subjective 74-year-old man presented with septic shock secondary to pneumonia. He developed symptoms approximately 4 days ago and denies any sick contacts or recent illnesses prior to this. He underwent a massive heart surgery with complications 2 years ago and since that time walks with a walker. Today he underwent a thoracentesis with evidence of empyema. He remains on norepinephrine and antibiotics. He is oxygen eating well on minimal O2 support and mentating well. He is tolerating p.o. and reports some fatigue and minimal pain at the site of thoracentesis when he coughs. Review of Systems Review of Systems: All systems reviewed & are unremarkable except as noted in HPI & below Physical Exam Physical Exam: CONSTITUTIONAL: WNWD, vitals as above, generally fatigued EYES: normal conjunctivae, no scleral icterus ENT: MMM RESPIRATORY: clear to auscultation bilaterally, no crackles, rales or wheezes, normal respiratory effort. CARDIOVASCULAR: regular rate and rhythm, S1 and 2 heard without murmurs, gallops or rubs, no JVD, trace peripheral edema CHEST: inspection of chest was normal, left lateral chest wall with small puncture site that is closed and healing well. GASTROINTESTINAL: normal bowel sounds, soft, nontender, nondistended MUSCULOSKELETAL: strength 5/5 throughout, head is normocephalic and atraumatic SKIN: warm and dry NEUROLOGIC: CN 2-12 grossly intact, no sensory deficit, normal cognition, normal speech, no gross focal deficits. PSYCHIATRIC: alert cooperative and oriented to person, place and time. Results & Data Vital Signs (Past 12 Hours) Vital Signs Temp Pulse Resp BP Pulse Ox 04/06/19 12:45 101 H 15 104/57 L 93 04/06/19 12:31 98 H 13 95/43 L 04/06/19 12:16 105 H 4 L 104/58 L 90 04/06/19 12:01 38.2 C H 103 H 18 86/50 L 89 L 04/06/19 11:45 103 H 15 107/84 90 04/06/19 11:30 102 H 13 89/64 L 82 L 04/06/19 11:16 102 H 14 114/89 94 04/06/19 11:00 104 H 18 108/60 92 04/06/19 10:46 99 H 11 L 89/70 L 95 04/06/19 10:45 96 H 16 94 04/06/19 10:31 101 H 29 H 103/46 L 91 04/06/19 10:16 100 H 19 50/34 L 93 04/06/19 10:00 101 H 5 L 121/55 L 93 04/06/19 09:46 103 H 7 L 126/52 L 94 04/06/19 09:41 103 H 11 L 153/53 H 89 L 04/06/19 09:30 106 H 94 04/06/19 09:16 103 H 86/51 L 94 04/06/19 09:15 102 H 94 04/06/19 09:01 107 H 113/40 L 90 04/06/19 09:00 109 H 94 04/06/19 08:45 103 H 90 04/06/19 08:30 110 H 113/47 L 97 04/06/19 08:16 108 H 90/46 L 93 04/06/19 08:00 106 H 94 04/06/19 07:46 38.3 C H 108 H 88/52 L 94 04/06/19 07:45 112 H 88/52 L 95 04/06/19 07:30 104 H 93 04/06/19 07:03 103 H 101/48 L 96 04/06/19 06:31 105 H 101/53 L 90 04/06/19 06:26 102 H 128/40 L 95 04/06/19 06:04 108 H 132/76 94 04/06/19 05:29 109 H 114/66 95 04/06/19 05:01 112 H 114/66 94 04/06/19 04:01 38.2 C H 104 H 91/55 L 96 Laboratory Results Short CBC 04/05/19 04/06/19 Range/Units 20:47 04:00 WBC 15.06 H 19.02 H (4.8-10.8) K/uL Hgb 13.0 L 11.5 L (14.0-18.0) g/dL Hct 37.7 L 35.2 L (42-52) % Plt Count 197 201 (130-400) K/uL BMP 04/05/19 04/06/19 20:47 04:00 Sodium 131 L 132 L Potassium 5.0 4.6 Chloride 97 L 101 Carbon Dioxide 23 21 BUN 88 H 78 H Creatinine 2.43 H 1.99 H D Glucose 175 H 216 H Calcium 8.9 8.0 L Cardiac Enzymes 04/05/19 04/06/19 04/06/19 Range/Units 20:47 04:00 10:45 Troponin I 0.050 H* 0.050 H* 0.077 H* (0-0.045) ng/ml Liver Function 04/05/19 04/06/19 Range/Units 20:47 04:00 Total Bilirubin 1.4 H 1.8 H (0.2-1) mg/dl AST 75 H 51 H (15-37) U/L ALT 55 46 (12-78) U/L Alkaline Phosphatase 288 H 230 H (45-117) U/L Albumin 2.6 L 2.2 L (3.4-5.0) gm/dl Urine 04/05/19 Range/Units 23:50 Urine Color Yellow Urine Appearance Clear (Clear) Urine pH 5.0 (4.5-7.5) Ur Specific [place] 1.018 (1.000-1.030) Urine Protein Negative (Negative) Urine Glucose (UA) Negative (Negative) Diagnostic Findings XR chest 1V portable HISTORY: 74 years-old Male S/P left thoracentesis follow-up study in a patient with recent left-sided thoracentesis COMPARISON: Chest radiograph 04/05/2019 TECHNIQUE: Portable AP view the chest FINDINGS: Cardiac silhouette is enlarged, unchanged. Prior median sternotomy. Calcification of the thoracic aortic arch. Mildly decreased size of the left pleural effusion. No postprocedural pneumothorax identified. Pulmonary vascular congestion with interstitial coarsening persists along with left midlung and left lung base opacities. Probable trace right pleural effusion. Degenerative changes of the shoulders and spine. IMPRESSION: 1. Mildly decreased size of the left pleural effusion status post thoracentesis. No postprocedural pneumothorax. 2. Cardiomegaly with persistent congestive changes. 3. Left midlung and left basilar consolidation redemonstrated. Medications Administered Current Inpatient Medications Acetaminophen (Tylenol) 500 mg PO Q4 PRN PRN Reason: Fever Or Pain Stop: 05/05/19 23:15 Aspirin (Ecotrin Ectab) 81 mg PO DAILY [facility] Stop: 05/06/19 08:59 Last Admin: 04/06/19 08:30 Dose: 81 mg Documented by: Atorvastatin Calcium (Lipitor) 40 mg PO HS [facility]RA Stop: 05/06/19 20:59 Buspirone HCl (Buspar) 2.5 mg PO TID PRN PRN Reason: Anxiety Stop: 05/06/19 01:42 Dextrose (Dextrose 50%) 25 - 50 ml IV UD PRN; Protocol PRN Reason: Hypoglycemia Protocol Stop: 05/05/19 23:15 Docusate Sodium (Colace) 100 mg PO BID PRN PRN Reason: Constipation Stop: 05/05/19 23:15 Last Admin: 04/06/19 08:30 Dose: 100 mg Documented by: Gabapentin (Neurontin) 100 mg PO TID [facility] Stop: 05/06/19 08:59 Last Admin: 04/06/19 14:36 Dose: 100 mg Documented by: Glucagon (Glucagen) 1 mg SQ UD PRN; Protocol PRN Reason: Hypoglycemia Protocol Stop: 05/05/19 23:15 Glucose (Glucose 40%) 15 - 30 gm PO UD PRN; Protocol PRN Reason: Hypoglycemia Protocol Stop: 05/05/19 23:15 Glucose (Dex4 Glucose) 4 - 8 tabs PO UD PRN; Protocol PRN Reason: Hypoglycemia Protocol Stop: 05/05/19 23:15 Norepinephrine Bitartrate 8 mg (/ Dextrose) 508 mls @ 8.18 mls/hr IV .Q24H [facility]; Protocol Stop: 05/05/19 22:02 Last Titration: 04/06/19 14:02 Dose: 0.02 mcg/kg/min, 8.2 mls/hr Documented by: Piperacillin Sod/Tazobactam (Sod 4.5 gm/ Dextrose) 120 mls @ 30 mls/hr IV Q8H [facility]; Protocol Stop: 04/13/19 03:59 Last Infusion: 04/06/19 16:12 Dose: Infused Documented by: Doxycycline Hyclate 100 mg/ (Dextrose) 110 mls @ 55 mls/hr IV BID@0000,1000 [facility] Stop: 04/13/19 00:29 Last Infusion: 04/06/19 12:09 Dose: Infused Documented by: Insulin Human Regular 250 (units/ Sodium Chloride) 250 mls @ 0 mls/hr IV .Q0M [facility]; Protocol Stop: 05/06/19 04:44 Last Titration: 04/06/19 17:12 Dose: 0 units/hr, 0 mls/hr Documented by: Insulin Aspart (Novolog Flexpen) 0 units SC ACHS [facility] Stop: 05/06/19 17:14 Last Admin: 04/06/19 17:15 Dose: 5 units Documented by: Insulin Glargine (Lantus Solostar Pen) [address] [facility] Magnesium Oxide (Mag-Ox) 400 mg PO QAM [facility] Stop: 05/06/19 08:59 Last Admin: 04/06/19 08:30 Dose: 400 mg Documented by: Miscellaneous (Icu Protocol For Hyperglycemia) 1 ea N/A PRN PRN; Protocol PRN Reason: Hyperglycemia Protocol Stop: 04/07/19 23:15 Miscellaneous (Carbohydrates For Hypoglycemia) 15 - 30 gm PO UD PRN PRN Reason: Hypoglycemia Treatment Stop: 05/05/19 23:15 Miscellaneous Information () 1 ea N/A UD PRN PRN Reason: Consult Stop: 05/05/19 23:29 Miscellaneous Information (Consult Glycemic Management Pharmacy) 1 ea N/A UD PRN; Protocol PRN Reason: Consult Stop: 05/05/19 23:47 Miscellaneous Information (Consult) 1 ea N/A UD PRN PRN Reason: Consult Stop: 05/05/19 23:32 Polyethylene Glycol (Miralax Powder Packet) 17 gm PO DAILY PRN PRN Reason: Constipation Stop: 05/05/19 23:15 Sennosides (Senokot) 8.6 mg PO DAILY PRN PRN Reason: Constipation Stop: 05/05/19 23:15 Last Admin: 04/06/19 08:30 Dose: 8.6 mg Documented by: Warfarin Sodium (Coumadin) 5 mg PO DAILY@1600 [facility] Stop: 05/06/19 15:59 Last Admin: 04/06/19 14:38 Dose: Not Given Documented by:
[2019-04-06] MEDS ORDERED: WARFARIN SOD 5 MG TAB PO SCH (16:00)
[2019-04-06] MEDS: ATORVASTATIN 40 MG TAB PO SCH (20:26)
[2019-04-06] MEDS ORDERED: INSULIN GLARGINE SOLOSTAR 100 UNITS/ML 3 ML PEN SC STA (20:40)
[2019-04-06] MEDS ORDERED: LORazepam 0.5 MG TAB PO STA (21:33)
[2019-04-06] MEDS: ACETAMINOPHEN 500 MG TAB PO PRN (21:40)
[2019-04-07] MEDS: DOXYCYCLINE HYCLATE 100 MG in DEXTROSE 5% 100 ML IV SCH (00:46)
[2019-04-07 05:07] LABS: INR 3.3 (0.9-1.1); Prothrombin Time 31.1 Seconds (9.0-12.0)
[2019-04-07] MEDS: PIPERACILLIN/TAZOBACTAM 4.5 GM in DEXTROSE 5% 100 ML IV SCH ×3 (05:09→19:50)
[2019-04-07] MEDS ORDERED: VANCOMYCIN CONSULT ACTIVE PRN (05:41)
[2019-04-07] MEDS ORDERED: VANCOMYCIN HCL 2,250 MG in SODIUM CHLORIDE 0.9% 500 ML IV SCH (06:00)
[2019-04-07] MEDS: NOREPINEPHRINE BIT INJ 8 MG in DEXTROSE 5% 500 ML IV SCH (07:30)
--- NOTE | 2019-04-07 07:55 | Critical Care Progress Note ---
Date of Service April 07, 2019 Assessment & Plan (1) Admitted to intensive care unit: Reason Critically Ill: Sever Sepsis 2/2 Empyema/PNA now no longer requiring vasopressor support, possible GI bleeding PLAN: NEURO CAM ICU: NEGATIVE -Anxiety- cont Buspirone 2.5 mg TID prn -Will consider clinical dx of depression moving forward. Pt has had flat affect here, although seems improved today somewhat -No other acute concerns or complaints. CARDIO -Septic shock- Norepinephrine for vasopressor support, weaned off. Pt declined central line for peripheral pressures -CHF- ECHO 04/06: LV systolic function moderately to severely reduced. EF 30-35%. -CAD- cont Aspirin, Atorvastatin. Hold Losartan given MARISA. Hold Toprol XL -HTN/Afib- hold metoprolol, losartan, diuretics. AC with Warfarin -h/o aortic valve replacement with mitral valve repair -Ischemic cardiomyopathy- pt declining defibrillator placement PULMONARY -04/06- bedside ultrasound with pleural effusion, s/p thoracentesis -L sided empyema --> gram neg bacilli. Cont zosyn -consult Thoracic Sx- Dr. Paula -repeat CXR: Unchanged appearance of the moderate left pleural effusion -sat well on NC. Will titrate to keep sat >92% RENAL/ -ARF- prerenal vs ATN. Cr improving. Good UOP -likely ATN 2/2 shock from sepsis -No other acute concerns or complaints GI -Mildly increased LFTs likely from sepsis, improved -hypoalbuminemia- pt taking boost shakes -Reports of black tarry stool --> positive fecal occult -No other acute concerns or complaints ENDO -A1C 7.9 -Diabetic Neuropathy- cont Gabapentin 100 mg TID -ICU Hyperglycemia protocol. BSG Stable HEME -INR 3.3 from warfarin -Anemia likely 2/2 marrow suppression from sepsis ID -septic shock. As above: gram neg bacilli. D/C vancomycin/doxy, cont zosyn -repeat blood cx -cont trend fever curve LINES: PIV x2 DVT Prophylaxis: Warfarin held, therapeutic INR Full Code DISPO: ICU Supervising Physician Co-Signing Physician Notes Dr. Doherty was resident physician during care of patient. I separately evaluated patient for latif portions of the history and the exam. I was present during the critical portion of medical decision making, and I discussed the case with the resident. I generally agree with the findings and plan. Patient was discussed on multidisciplinary rounds Reason Critically Ill: Severe sepsis secondary to empyema with possible gastrointestinal bleeding PLAN: Neuro: Flat affect -Consider clinical depression Resp: Left-sided empyema -Gram-negative bacilli currently treating with Zosyn CV: Hypotension: Likely severe sepsis -Improved, currently off vasoactive History atrial fibrillation: Permanent -Systemic anticoagulation with Coumadin History of aortic valve replacement with mitral valve repair Known coronary artery disease Fluids/Renal: Acute renal failure: Acute kidney injury -Improving: Repeat UA likely acute tubular necrosis secondary to hypotension associated with sepsis ID: Gram-negative bacilli, blood was contaminant following PCR testing -Discontinue vancomycin, continue Zosyn GI/Nutrition: Hypoalbuminemia -Encourage protein intake Heme: Anemia -Likely secondary to bone marrow suppression secondary to sepsis DVT prophylaxis: Therapeutic INR secondary to Coumadin secondary to fibrillation Endocrine: ICU hyperglycemia protocol Diabetes type 2 -Elevated A1c Vascular access: Peripheral IVs Code Status: Full I have personally spent 50 minutes of critical care time in the direct management of this patient. This is a life/limb threatening event. This includes time spent evaluating patient, direct bedside care, chart review, placing orders, interpretation of diagnostic studies, discussion with consultants, patient, and/or family members regarding treatment decisions, as well as other required patient management activities. This time is exclusive of all separately billable procedures, and teaching time and separate from and in addition to any other critical care service time. Subjective 74 y/o M found in bed this AM in NAD. No reported acute overnight events. Pt states that he feels like he is doing better, feels breathing is improved. Pt appears to be in better spirits today in comparison to previous days, joking around with staff during rounds. Pt tolerating PO intake, just not eating very much. No issues voiding. Denies any other acute concerns or complaints. Review of Systems Review of Systems: All systems reviewed & are unremarkable except as noted in HPI & below Physical Exam Constitutional: WD/WN, vitals as above Eyes: PERRL, conjunctivae normal, anicteric sclerae ENMT: external ear and nose normal, oropharynx normal Respiratory: normal respiratory effort, lungs clear to auscultation Cardiovascular: RRR, no murmur, no edema Gastrointestinal (Abdomen): normal bowel sounds, soft, nontender, no hepatosplenomegaly Skin: no rashes, warm and dry Psychiatric: A+Ox3, euthymic affect Lymphatic: LE swelling, non-pitting Results & Data Vital Signs (Past 12 Hours) Vital Signs Temp Pulse Resp BP Pulse Ox 04/07/19 06:19 96 H 16 117/41 L 96 04/07/19 05:00 108 H 12 111/54 L 96 04/07/19 04:02 37.4 C 93 H 21 83/58 L 94 04/07/19 03:00 94 H 18 97/53 L 96 04/07/19 02:31 93 H 24 102/59 L 87 L 04/07/19 02:00 93 H 22 93/54 L 90 04/07/19 01:00 98 H 20 107/51 L 96 04/07/19 00:00 36.8 C 109 H 21 104/54 L 97 04/06/19 23:30 103 H 28 H 103/52 L 94 04/06/19 23:01 112 H 31 H 95/41 L 95 04/06/19 23:00 118 H 26 H 79/48 L 92 04/06/19 22:31 108 H 26 H 95/79 L 04/06/19 22:00 110 H 26 H 116/42 L 87 L 04/06/19 21:30 108 H 23 87/47 L 96 04/06/19 21:01 105 H 25 H 103/47 L 93 04/06/19 20:17 100 H 31 H 91/45 L 97 04/06/19 20:00 38.6 C H 101 H 27 H 82/53 L 88 L Laboratory Results Laboratory Results - last 24 hr 04/05/19 04/06/19 04/06/19 20:47 13:30 13:30 Hgb Hct PT INR Creatinine Est Cr Clr Drug Dosing Est GFR ( Amer) Est GFR (Non-Af Amer) POC Glucose Urine Color Urine Appearance Urine pH Ur Specific Colora Urine Protein Urine Glucose (UA) Urine Ketones Urine Blood Urine Nitrite Urine Bilirubin Urine Urobilinogen Ur Leukocyte Esterase Urine WBC (Auto) Urine RBC (Auto) U Hyaline Cast (Auto) U Epithel Cells (Auto) Urine Bacteria (Auto) Pleural Fluid Source LEFT LUNG Pleural Color JOSE Pleural Appearance CLOUDY Pleural pH < 6.60 L Pleural WBC 8644 Pleural RBC 02288 Pleural Polynuclear % 90.4 Pleural Mononuclear % 9.6 Pleural Total Protein Pleural LDH Pleural Glucose Pleural Amylase Pleural Cholesterol Bld Cult Staph aureus PCR Negative Blood Culture MRSA PCR Negative Blood Type Antibody Screen 04/06/19 04/06/19 04/06/19 13:30 13:30 13:56 Hgb Hct PT INR Creatinine Est Cr Clr Drug Dosing Est GFR ( Amer) Est GFR (Non-Af Amer) POC Glucose 136 H Urine Color Urine Appearance Urine pH Ur Specific Colora Urine Protein Urine Glucose (UA) Urine Ketones Urine Blood Urine Nitrite Urine Bilirubin Urine Urobilinogen Ur Leukocyte Esterase Urine WBC (Auto) Urine RBC (Auto) U Hyaline Cast (Auto) U Epithel Cells (Auto) Urine Bacteria (Auto) Pleural Fluid Source Pleural Color Pleural Appearance Pleural pH Pleural WBC Pleural RBC Pleural Polynuclear % Pleural Mononuclear % Pleural Total Protein 3.7 Pleural LDH 469 Pleural Glucose < 1 Pleural Amylase 19 Pleural Cholesterol Pending Bld Cult Staph aureus PCR Blood Culture MRSA PCR Blood Type Antibody Screen 04/06/19 04/06/19 04/06/19 15:01 15:24 15:38 Hgb Hct PT INR Creatinine Est Cr Clr Drug Dosing Est GFR ( Amer) Est GFR (Non-Af Amer) POC Glucose 108 H 103 H 100 H Urine Color Urine Appearance Urine pH Ur Specific Colora Urine Protein Urine Glucose (UA) Urine Ketones Urine Blood Urine Nitrite Urine Bilirubin Urine Urobilinogen Ur Leukocyte Esterase Urine WBC (Auto) Urine RBC (Auto) U Hyaline Cast (Auto) U Epithel Cells (Auto) Urine Bacteria (Auto) Pleural Fluid Source Pleural Color Pleural Appearance Pleural pH Pleural WBC Pleural RBC Pleural Polynuclear % Pleural Mononuclear % Pleural Total Protein Pleural LDH Pleural Glucose Pleural Amylase Pleural Cholesterol Bld Cult Staph aureus PCR Blood Culture MRSA PCR Blood Type Antibody Screen 04/06/19 04/06/19 04/06/19 15:54 16:11 17:06 Hgb Hct PT INR Creatinine Est Cr Clr Drug Dosing Est GFR ( Amer) Est GFR (Non-Af Amer) POC Glucose 101 H 111 H 125 H Urine Color Urine Appearance Urine pH Ur Specific Colora Urine Protein Urine Glucose (UA) Urine Ketones Urine Blood Urine Nitrite Urine Bilirubin Urine Urobilinogen Ur Leukocyte Esterase Urine WBC (Auto) Urine RBC (Auto) U Hyaline Cast (Auto) U Epithel Cells (Auto) Urine Bacteria (Auto) Pleural Fluid Source Pleural Color Pleural Appearance Pleural pH Pleural WBC Pleural RBC Pleural Polynuclear % Pleural Mononuclear % Pleural Total Protein Pleural LDH Pleural Glucose Pleural Amylase Pleural Cholesterol Bld Cult Staph aureus PCR Blood Culture MRSA PCR Blood Type Antibody Screen 04/06/19 04/07/19 04/07/19 20:18 04:25 04:29 Hgb Hct PT 31.1 H INR 3.3 H Creatinine 1.61 H D Est Cr Clr Drug Dosing 47.8 Est GFR ( Amer) 48.1 Est GFR (Non-Af Amer) 41.5 POC Glucose 135 H Urine Color Urine Appearance Urine pH Ur Specific Colora Urine Protein Urine Glucose (UA) Urine Ketones Urine Blood Urine Nitrite Urine Bilirubin Urine Urobilinogen Ur Leukocyte Esterase Urine WBC (Auto) Urine RBC (Auto) U Hyaline Cast (Auto) U Epithel Cells (Auto) Urine Bacteria (Auto) Pleural Fluid Source Pleural Color Pleural Appearance Pleural pH Pleural WBC Pleural RBC Pleural Polynuclear % Pleural Mononuclear % Pleural Total Protein Pleural LDH Pleural Glucose Pleural Amylase Pleural Cholesterol Bld Cult Staph aureus PCR Blood Culture MRSA PCR Blood Type Antibody Screen 04/07/19 04/07/19 04/07/19 08:25 09:43 09:43 Hgb 10.1 L Hct 30.9 L PT INR Creatinine Est Cr Clr Drug Dosing Est GFR ( Amer) Est GFR (Non-Af Amer) POC Glucose 164 H Urine Color Urine Appearance Urine pH Ur Specific Colora Urine Protein Urine Glucose (UA) Urine Ketones Urine Blood Urine Nitrite Urine Bilirubin Urine Urobilinogen Ur Leukocyte Esterase Urine WBC (Auto) Urine RBC (Auto) U Hyaline Cast (Auto) U Epithel Cells (Auto) Urine Bacteria (Auto) Pleural Fluid Source Pleural Color Pleural Appearance Pleural pH Pleural WBC Pleural RBC Pleural Polynuclear % Pleural Mononuclear % Pleural Total Protein Pleural LDH Pleural Glucose Pleural Amylase Pleural Cholesterol Bld Cult Staph aureus PCR Blood Culture MRSA PCR Blood Type A Positive Antibody Screen NEGATIVE 04/07/19 04/07/19 11:44 13:10 Hgb Hct PT INR Creatinine Est Cr Clr Drug Dosing Est GFR ( Amer) Est GFR (Non-Af Amer) POC Glucose 196 H Urine Color Yellow Urine Appearance Clear Urine pH 5.0 Ur Specific Colora 1.024 Urine Protein Trace H Urine Glucose (UA) Negative Urine Ketones Negative Urine Blood Negative Urine Nitrite Negative Urine Bilirubin Negative Urine Urobilinogen Negative Ur Leukocyte Esterase Negative Urine WBC (Auto) 1-5 Urine RBC (Auto) 10-30 H U Hyaline Cast (Auto) 0 U Epithel Cells (Auto) 10-20 H Urine Bacteria (Auto) Negative Pleural Fluid Source Pleural Color Pleural Appearance Pleural pH Pleural WBC Pleural RBC Pleural Polynuclear % Pleural Mononuclear % Pleural Total Protein Pleural LDH Pleural Glucose Pleural Amylase Pleural Cholesterol Bld Cult Staph aureus PCR Blood Culture MRSA PCR Blood Type Antibody Screen Medications Administered Current Inpatient Medications Acetaminophen (Tylenol) 500 mg PO Q4 PRN PRN Reason: Fever Or Pain Stop: 05/05/19 23:15 Last Admin: 04/06/19 21:40 Dose: 500 mg Documented by: Aspirin (Ecotrin Ectab) 81 mg PO DAILY [facility] Stop: 05/06/19 08:59 Last Admin: 04/07/19 09:37 Dose: 81 mg Documented by: Atorvastatin Calcium (Lipitor) 40 mg PO HS [facility] Stop: 05/06/19 20:59 Last Admin: 04/06/19 20:26 Dose: 40 mg Documented by: Buspirone HCl (Buspar) 2.5 mg PO TID PRN PRN Reason: Anxiety Stop: 05/06/19 01:42 Last Admin: 04/07/19 09:35 Dose: 2.5 mg Documented by: Dextrose (Dextrose 50%) 25 - 50 ml IV UD PRN; Protocol PRN Reason: Hypoglycemia Protocol Stop: 05/05/19 23:15 Docusate Sodium (Colace) 100 mg PO BID PRN PRN Reason: Constipation Stop: 05/05/19 23:15 Last Admin: 04/06/19 08:30 Dose: 100 mg Documented by: Gabapentin (Neurontin) 100 mg PO TID [facility] Stop: 05/06/19 08:59 Last Admin: 04/07/19 13:07 Dose: 100 mg Documented by: Glucagon (Glucagen) 1 mg SQ UD PRN; Protocol PRN Reason: Hypoglycemia Protocol Stop: 05/05/19 23:15 Glucose (Glucose 40%) 15 - 30 gm PO UD PRN; Protocol PRN Reason: Hypoglycemia Protocol Stop: 05/05/19 23:15 Glucose (Dex4 Glucose) 4 - 8 tabs PO UD PRN; Protocol PRN Reason: Hypoglycemia Protocol Stop: 05/05/19 23:15 Piperacillin Sod/Tazobactam (Sod 4.5 gm/ Dextrose) 120 mls @ 30 mls/hr IV Q8H [facility]; Protocol Stop: 04/13/19 03:59 Last Admin: 04/07/19 13:06 Dose: 30 mls/hr Documented by: Sodium Chloride (Nss) 250 mls @ 15 mls/hr IV .[id number] PRN PRN Reason: For Transfusion Stop: 05/07/19 09:17 Insulin Aspart (Novolog Flexpen) 0 units SC ACHS [facility] Stop: 05/06/19 17:14 Last Admin: 04/07/19 12:51 Dose: 7 units Documented by: Insulin Glargine (Lantus Solostar Pen) 20 units SC BID [facility] Stop: 05/07/19 08:59 Last Admin: 04/07/19 09:32 Dose: 20 units Documented by: Magnesium Oxide (Mag-Ox) 400 mg PO QAM [facility] Stop: 05/06/19 08:59 Last Admin: 04/07/19 09:33 Dose: Not Given Documented by: Miscellaneous (Icu Protocol For Hyperglycemia) 1 ea N/A PRN PRN; Protocol PRN Reason: Hyperglycemia Protocol Stop: 04/07/19 23:15 Miscellaneous (Carbohydrates For Hypoglycemia) 15 - 30 gm PO UD PRN PRN Reason: Hypoglycemia Treatment Stop: 05/05/19 23:15 Miscellaneous Information (Consult Glycemic Management Pharmacy) 1 ea N/A UD PRN; Protocol PRN Reason: Consult Stop: 05/05/19 23:47 Miscellaneous Information (Consult) 1 ea N/A UD PRN PRN Reason: Consult Stop: 05/05/19 23:32 Polyethylene Glycol (Miralax Powder Packet) 17 gm PO DAILY PRN PRN Reason: Constipation Stop: 05/05/19 23:15 Sennosides (Senokot) 8.6 mg PO DAILY PRN PRN Reason: Constipation Stop: 05/05/19 23:15 Last Admin: 04/06/19 08:30 Dose: 8.6 mg Documented by: Warfarin Sodium (Coumadin) 5 mg PO DAILY@1600 [facility] Stop: 05/06/19 15:59 Last Admin: 04/06/19 14:38 Dose: Not Given Documented by: Resident Activity Tracking Resident Involvement: Resident Care Provided Care Provided: Adult Hospital Medicine
[2019-04-07 08:05] LABS: Creatinine Clr Calc Pharmacy 47.8 ml/min; Est GFR (African American) 48.1; Est GFR (Non-African American) 41.5
--- NOTE | 2019-04-07 08:28 | XRay Report ---
XR chest 1V portable CLINICAL HISTORY: 74 years-old Male presenting with L empyema. TECHNIQUE: Portable upright AP view of the chest was obtained. COMPARISON: 04/06/2019. FINDINGS: Multiple external leads overlie the thorax to grating evaluation. Extensive median sternotomy wires. Atherosclerosis of the aortic arch. Cardiac silhouette enlarged. Calcified left hilar lymph nodes sug gested. Persistent moderate left pleural effusion with left mid to basilar opacity and poor aeration. Slight increased pulmonary vascular prominence in the right lung with possible interlobular septal t hickening and added density of the right lung, which is subtle. No large right pleural effusion. No p neumothorax. IMPRESSION: 1. Unchanged appearance of the moderate left pleural effusion with extensive left mid to basilar félix g infiltrate and/or atelectasis. 2. No pneumothorax. 3. Possible cardiomegaly with worsening volume overload and congestive change most evident in the ri ght lung. Electronically signed by: Yoan Delgado M.D. 04/07/2019 8:27 AM
[2019-04-07] MEDS ORDERED: SODIUM CHLORIDE 0.9% 250 ML IV PRN (09:18)
[2019-04-07] MEDS: INSULIN ASPART 100 UNITS/ML 3 ML PEN SC SCH ×4 (09:31→21:23)
[2019-04-07] MEDS: INSULIN GLARGINE SOLOSTAR 100 UNITS/ML 3 ML PEN SC SCH ×2 (09:32→21:27)
[2019-04-07] MEDS: MAGNESIUM OXIDE 400 MG TAB PO SCH (09:33)
[2019-04-07] MEDS: GABAPENTIN 100 MG CAP PO SCH ×3 (09:35→19:51)
[2019-04-07] MEDS: ASPIRIN 81 MG ECTAB PO SCH (09:37)
[2019-04-07 09:53] LABS: Hematocrit (blood only) 30.9 % (42-52); Hemoglobin 10.1 g/dL (14.0-18.0)
[2019-04-07 13:25] LABS: Appearance Urine Clear (Clear); Bacteria Urine Automated Negative (Negative); Bilirubin Urine Negative (Negative); Cast Urine Automated 0 /lpf (0-5); Color Urine Yellow; Glucose Urine UA Negative (Negative); Ketones Urine Negative (Negative); Leukocyte Esterase Urine Negative (Negative); Nitrite Urine Negative (Negative); Protein Urine Trace (Negative); Specific Gravity Urine 1.024 (1.000-1.030); Urobilinogen Urine Negative (Negative)
--- NOTE | 2019-04-07 14:15 | Cardiology Progress Note ---
Date of Service April 07, 2019 Assessment & Plan (1) Sepsis: The patient is currently hemodynamically stable. He is being treated for a pneumonia and possible empyema. Currently he has chronic cardiac problems but he is stable. (2) Pneumonia: (3) Acute renal failure: (4) Atrial fibrillation: (5) Coronary artery disease: (6) Diabetes mellitus, type II: (7) Stroke: (8) S/P TAVR (transcatheter aortic valve replacement): Subjective The patient is having the CAT scan. He had a thoracentesis done yesterday and there is concern for an empyema. He has been seen by thoracic surgery. He has no cardiac complaints at present. Review of Systems Review of Systems: All systems reviewed & are unremarkable except as noted in HPI & below No additional Physical Exam Physical Exam: General: no acute distress and stated age Head: normocephalic, no masses, lesions, tenderness or abnormalities Eyes: conjunctiva are pink and non-injected, sclera clear Neck: supple, no adenopathy, no bruits, normal jugular venous pulse, no hepatojugular reflux Chest: normal shape and normal respiratory effort Lungs: clear to auscultation and percussion Cardiac Exam: - regular rate & rhythm, no murmurs gallops or rubs - normal S1, normal S2 Pulses: 2(+) throughout Abdomen: abdomen soft, non-tender, no abnormal masses and no hepatosplenomegaly Musculoskeletal: no gait disturbance, no joint inflammation, no deforming arthritis Extremities: no edema and no cyanosis Neuro: grossly normal exam Results & Data Vital Signs (Past 12 Hours) Vital Signs Temp Pulse Resp BP Pulse Ox 04/07/19 13:32 108 H 24 105/82 100 04/07/19 13:00 36.7 C 102 H 18 122/38 L 100 04/07/19 12:31 104 H 25 H 112/46 L 100 04/07/19 12:01 107 H 20 89/56 L 100 04/07/19 12:00 100 H 20 100 04/07/19 11:31 107 H 19 135/77 90 04/07/19 11:01 99 H 24 105/67 96 04/07/19 10:30 102 H 30 H 104/82 98 04/07/19 09:30 106 H 22 104/89 96 04/07/19 09:05 109 H 20 90/61 L 99 04/07/19 08:31 98 H 17 113/54 L 95 04/07/19 08:01 36.7 C 96 H 20 90/69 L 94 04/07/19 07:31 90 17 92/52 L 96 04/07/19 07:01 86 18 104/43 L 97 04/07/19 06:19 96 H 16 117/41 L 96 04/07/19 05:00 108 H 12 111/54 L 96 04/07/19 04:02 37.4 C 93 H 21 83/58 L 94 04/07/19 03:00 94 H 18 97/53 L 96 04/07/19 02:31 93 H 24 102/59 L 87 L Laboratory Results General: no acute distress and stated age Head: normocephalic, no masses, lesions, tenderness or abnormalities Eyes: conjunctiva are pink and non-injected, sclera clear Neck: supple, no adenopathy, no bruits, normal jugular venous pulse, no hepatojugular reflux Chest: normal shape and normal respiratory effort Lungs: Decreased left breath sounds Cardiac Exam: - regular rate & rhythm, no murmurs gallops or rubs - normal S1, normal S2 Pulses: 2(+) throughout Abdomen: abdomen soft, non-tender, no abnormal masses and no hepatosplenomegaly Musculoskeletal: no gait disturbance, no joint inflammation, no deforming arthritis Extremities: no edema and no cyanosis Neuro: grossly normal exam Medications Administered Current Inpatient Medications Acetaminophen (Tylenol) 500 mg PO Q4 PRN PRN Reason: Fever Or Pain Stop: 05/05/19 23:15 Last Admin: 04/06/19 21:40 Dose: 500 mg Documented by: Aspirin (Ecotrin Ectab) 81 mg PO DAILY [facility] Stop: 05/06/19 08:59 Last Admin: 04/07/19 09:37 Dose: 81 mg Documented by: Atorvastatin Calcium (Lipitor) 40 mg PO HS [facility] Stop: 05/06/19 20:59 Last Admin: 04/06/19 20:26 Dose: 40 mg Documented by: Buspirone HCl (Buspar) 2.5 mg PO TID PRN PRN Reason: Anxiety Stop: 05/06/19 01:42 Last Admin: 04/07/19 09:35 Dose: 2.5 mg Documented by: Dextrose (Dextrose 50%) 25 - 50 ml IV UD PRN; Protocol PRN Reason: Hypoglycemia Protocol Stop: 05/05/19 23:15 Docusate Sodium (Colace) 100 mg PO BID PRN PRN Reason: Constipation Stop: 05/05/19 23:15 Last Admin: 04/06/19 08:30 Dose: 100 mg Documented by: Gabapentin (Neurontin) 100 mg PO TID [facility] Stop: 05/06/19 08:59 Last Admin: 04/07/19 13:07 Dose: 100 mg Documented by: Glucagon (Glucagen) 1 mg SQ UD PRN; Protocol PRN Reason: Hypoglycemia Protocol Stop: 05/05/19 23:15 Glucose (Glucose 40%) 15 - 30 gm PO UD PRN; Protocol PRN Reason: Hypoglycemia Protocol Stop: 05/05/19 23:15 Glucose (Dex4 Glucose) 4 - 8 tabs PO UD PRN; Protocol PRN Reason: Hypoglycemia Protocol Stop: 05/05/19 23:15 Piperacillin Sod/Tazobactam (Sod 4.5 gm/ Dextrose) 120 mls @ 30 mls/hr IV Q8H [facility]; Protocol Stop: 04/13/19 03:59 Last Admin: 04/07/19 13:06 Dose: 30 mls/hr Documented by: Sodium Chloride (Nss) 250 mls @ 15 mls/hr IV .[id number] PRN PRN Reason: For Transfusion Stop: 05/07/19 09:17 Insulin Aspart (Novolog Flexpen) 0 units SC ACHS [facility] Stop: 05/06/19 17:14 Last Admin: 04/07/19 12:51 Dose: 7 units Documented by: Insulin Glargine (Lantus Solostar Pen) 20 units SC BID [facility] Stop: 05/07/19 08:59 Last Admin: 04/07/19 09:32 Dose: 20 units Documented by: Magnesium Oxide (Mag-Ox) 400 mg PO QAM [facility] Stop: 05/06/19 08:59 Last Admin: 04/07/19 09:33 Dose: Not Given Documented by: Miscellaneous (Icu Protocol For Hyperglycemia) 1 ea N/A PRN PRN; Protocol PRN Reason: Hyperglycemia Protocol Stop: 04/07/19 23:15 Miscellaneous (Carbohydrates For Hypoglycemia) 15 - 30 gm PO UD PRN PRN Reason: Hypoglycemia Treatment Stop: 05/05/19 23:15 Miscellaneous Information (Consult Glycemic Management Pharmacy) 1 ea N/A UD PRN; Protocol PRN Reason: Consult Stop: 05/05/19 23:47 Miscellaneous Information (Consult) 1 ea N/A UD PRN PRN Reason: Consult Stop: 05/05/19 23:32 Polyethylene Glycol (Miralax Powder Packet) 17 gm PO DAILY PRN PRN Reason: Constipation Stop: 05/05/19 23:15 Sennosides (Senokot) 8.6 mg PO DAILY PRN PRN Reason: Constipation Stop: 05/05/19 23:15 Last Admin: 04/06/19 08:30 Dose: 8.6 mg Documented by: Warfarin Sodium (Coumadin) 5 mg PO DAILY@1600 [facility] Stop: 05/06/19 15:59 Last Admin: 04/06/19 14:38 Dose: Not Given Documented by: (1) Sepsis Sepsis type: sepsis due to unspecified organism Qualified Code(s): A41.9 - Sepsis, unspecified organism (2) Pneumonia Laterality: left Lung location: lower lobe of lung Pneumonia type: due to unspecified organism Qualified Code(s): J18.1 - Lobar pneumonia, unspecified organism
--- NOTE | 2019-04-07 14:42 | Pharmacy Report ---
Pharmacy Glycemic Short Note 2 - Date of Service April 07, 2019 - Glycemic Short BSG Results (Last 24 hours): 04/06/19 04/06/19 04/06/19 15:01 15:24 15:38 POC Glucose 108 H 103 H 100 H 04/06/19 04/06/19 04/06/19 15:54 16:11 17:06 POC Glucose 101 H 111 H 125 H 04/06/19 04/07/19 04/07/19 20:18 08:25 11:44 POC Glucose 135 H 164 H 196 H OUTPATIENT ANTIDIABETIC REGIMEN: * glipizide 5mg QD * Lantus 75-100 units QD-per patient, dose varies based on BSG * HbA1c: 7.9% ASSESSMENT: 04/07 * Patient was successfully transitioned off of the drip yesterday. BSGs since have been much improved and vasopressor have come off. Lunch BSG slightly elevated but per nurse, this was post prandial, so will hold off on altering novolog scale. 04/06 * Patient admitted with septic shock requiring pressors, started on an insulin drip overnight. As the patient remains on pressors and insulin drip rates remains at 3.1 units/hr, will hold off on drip transition. The patient is ordered a diet, but PO intake has been minimal thus far. The norepinephrine drip remains on but at a low dose and is expected to be weaned off soon. I do anticipate transition may be feasible this evening or tomorrow morning once one insulin infusion rate decreases, blood sugars remain in range, and pressors come off. I will place a pending order to assess for possible drip transition once the following parameters are met: insulin infusion rate < 1.5 units/hr and BSG < 180 X 2. I have also ordered lantus to assist with eventual drip transition. Given the wide variability in patient's home dose and minimal PO intake, will use a weight based stress of 2 and 3 dosing for lantus to start. PLAN FOR INPATIENT GLYCEMIC CONTROL: * Hold outpatient oral diabetes medications * Basal insulin * Lantus 20 units SQ BID * Bolus insulin * NovoLog per scale ACHS or Q6hrs while NPO * Goal Range: Low 120 mg/dL - High 160 mg/dL * Correction Factor: 20 mg/dL/unit * Per carb ratio of 1 unit per 7 grams CHO consumed
--- NOTE | 2019-04-07 14:49 | CT Scan Report ---
CT SCAN OF THE CHEST WITHOUT IV CONTRAST CLINICAL HISTORY: Recurrent pleural effusion. COMPARISON STUDY: Chest x-ray dated 04/07/2019. TECHNIQUE: CT scan of the thorax was performed from the thoracic inlet to the upper abdomen. Images are reviewed in the axial, sagittal, and coronal planes. IV contrast was not administered for this ex amination as per the referring clinician. A dose lowering technique was utilized adhering to the [facility] DOSE: 735.15 mGy.cm FINDINGS: Thyroid: Imaged portions of the thyroid gland are normal in size and attenuation. Thoracic aorta: There is advanced atherosclerotic calcification of the thoracic aorta, which is maribell l in caliber and demonstrates standard 3-vessel arch anatomy. Heart: The patient is status post midline sternotomy. The heart is enlarged and without pericardial e ffusion. The coronary arteries, mitral annulus, and aortic valve leaflets are densely calcified. The main pulmonary arteries are mildly dilated suggesting pulmonary artery hypertension. Lungs and pleural spaces: There is a loculated pleural collection identified at the left lung base wi th overlying pleural thickening. This extends to the left apex, and measures up to 16.5 x 10 cm in tr ansaxial dimension. There is minimal complexity/internal debris within this collection. There is a sm all to moderate layering right pleural effusion. There is dense airspace consolidation at the left meena ng base. Atelectasis is noted in the right lower lobe. Intralobular septal thickening is seen bilater ally, left greater than right. This suggests a component of congestive failure. The trachea and centr al airways are clear. There are scattered calcified granulomas. Mediastinum: There are calcified prevascular nodes. Mediastinal lymphadenopathy is observed. A precar inal node on image #113 measures 1.8 cm in short axis. Numerous mildly enlarged prevascular nodes louie sure up to 11 mm short axis. Right peritracheal nodes measure up to 12 mm in short axis. Mary: Not well assessed without IV contrast. Left hilar adenopathy is suspected. Axillae: There is no axillary lymphadenopathy. Upper abdomen: The liver is cirrhotic in morphology and heterogeneous in attenuation. There is nodula rity of the hepatic surface contour. Trace perisplenic ascites is observed. Skeletal structures: The skeletal structures are osteopenic. Degenerative change is seen throughout t he thoracic spine in the shoulders. No lytic or blastic bony lesions are seen. There is a healed left posterior 10th rib fracture. Soft tissues: Gynecomastia is noted. IMPRESSION: 1. Cardiomegaly with evidence of congestive failure. 2. There is a loculated and minimally complex pleural collection at the left lung base with overlying pleural thickening as above with dense left basilar consolidation. The sterility of this collection cannot be assessed by CT. 3. There is a small to moderate layering right pleural effusion with associated atelectasis. 4. Cirrhotic liver morphology and trace perisplenic ascites. 5. There is mediastinal and possibly hilar adenopathy. 6. Additional findings as above. Electronically signed by: Kolton Rahman M.D. 04/07/2019 2:47 PM
[2019-04-07 15:31] LABS: Hematocrit (blood only) 31.5 % (42-52); Hemoglobin 10.4 g/dL (14.0-18.0)
--- NOTE | 2019-04-07 16:43 | Hospitalist Progress Note ---
Date of Service April 07, 2019 Assessment & Plan (1) Septic shock: Septic shock secondary to community acquired pneumonia. Continues to undergo treatment in the ICU. Maintained on Zosyn, doxy stopped. Repeat CT chest with persistent empyema. Thoracic surgery consulted for definitive treatm ent. Not requiring pressors. (2) Pneumonia: Chronic respiratory failure with 2 L nasal cannula. Continue treatment as above for pneumonia. (3) S/P TAVR (transcatheter aortic valve replacement): (4) Diabetes mellitus, type II: off Insulin drip and is being continued on basal/bolus therapy, management per ICU. (5) Coronary artery disease: Medical management with aspirin, Lipitor. Losartan on hold in setting of MARISA. Toprol-XL on hold. Patient has EF 35% and is also on spironolactone which is not being given at this time. Cardiology following. (6) Ischemic cardiomyopathy: As above. Patient is declining defibrillator placement (7) Atrial fibrillation: Continue Coumadin, Toprol on hold. Hemodynamic management per ICU. (8) Acute kidney injury: Likely secondary to septic shock. Continue IV fluids, avoid nephrotoxic substances. Hold losartan. (9) DVT (deep venous thrombosis): Therapeutic on Coumadin Full code Disposition-continue ICU management Ronit Stein DO [facility] Hospitalist Subjective Feels about the same as yesterday. Still having pain in the thoracentesis site with coughing. was asking about his ischemic cardia myopathy and we briefly discussed the need for ICD placement which he had previously declined. He states now that he would consider this as a therapy. I encouraged him to discuss this with Dr. Ashley from cardiology on rounds tomorrow. Review of Systems Review of Systems: All systems reviewed & are unremarkable except as noted in HPI & below Physical Exam Physical Exam: CONSTITUTIONAL: WNWD, vitals as above, generally fatigued EYES: normal conjunctivae, no scleral icterus ENT: MMM RESPIRATORY: crackles at the L base heard, otherwise clear to auscultation without rales or wheezes, normal respiratory effort. CARDIOVASCULAR: regular rate and rhythm, S1 and 2 heard without murmurs, gallops or rubs, no JVD, trace peripheral edema CHEST: inspection of chest was normal, left lateral chest wall with small puncture site that is closed and healing well. GASTROINTESTINAL: normal bowel sounds, soft, nontender, nondistended MUSCULOSKELETAL: strength 5/5 throughout, head is normocephalic and atraumatic SKIN: warm and dry NEUROLOGIC: CN 2-12 grossly intact, no sensory deficit, normal cognition, normal speech, no gross focal deficits. PSYCHIATRIC: alert cooperative and oriented to person, place and time. Results & Data Vital Signs (Past 12 Hours) Vital Signs Temp Pulse Resp BP Pulse Ox 04/07/19 14:41 106 H 30 H 105/54 L 100 04/07/19 13:32 108 H 24 105/82 100 04/07/19 13:00 36.7 C 102 H 18 122/38 L 100 04/07/19 12:31 104 H 25 H 112/46 L 100 04/07/19 12:01 107 H 20 89/56 L 100 04/07/19 12:00 100 H 20 100 04/07/19 11:31 107 H 19 135/77 90 04/07/19 11:01 99 H 24 105/67 96 04/07/19 10:30 102 H 30 H 104/82 98 04/07/19 09:30 106 H 22 104/89 96 04/07/19 09:05 109 H 20 90/61 L 99 04/07/19 08:31 98 H 17 113/54 L 95 04/07/19 08:01 36.7 C 96 H 20 90/69 L 94 04/07/19 07:31 90 17 92/52 L 96 04/07/19 07:01 86 18 104/43 L 97 04/07/19 06:19 96 H 16 117/41 L 96 04/07/19 05:00 108 H 12 111/54 L 96 Laboratory Results Short CBC 04/07/19 04/07/19 Range/Units 09:43 15:17 Hgb 10.1 L 10.4 L (14.0-18.0) g/dL Hct 30.9 L 31.5 L (42-52) % BMP 04/07/19 04:25 Creatinine 1.61 H D Urine 04/07/19 Range/Units 13:10 Urine Color Yellow Urine Appearance Clear (Clear) Urine pH 5.0 (4.5-7.5) Ur Specific [place] 1.024 (1.000-1.030) Urine Protein Trace H (Negative) Urine Glucose (UA) Negative (Negative) Diagnostic Findings CT SCAN OF THE CHEST WITHOUT IV CONTRAST CLINICAL HISTORY: Recurrent pleural effusion. COMPARISON STUDY: Chest x-ray dated 04/07/2019. TECHNIQUE: CT scan of the thorax was performed from the thoracic inlet to the upper abdomen. Images are reviewed in the axial, sagittal, and coronal planes. IV contrast was not administered for this examination as per the referring clinician. A dose lowering technique was utilized adhering to the principles of ALARA. CT DOSE: 735.15 mGy.cm FINDINGS: Thyroid: Imaged portions of the thyroid gland are normal in size and attenuation. Thoracic aorta: There is advanced atherosclerotic calcification of the thoracic aorta, which is normal in caliber and demonstrates standard 3-vessel arch anatomy. Heart: The patient is status post midline sternotomy. The heart is enlarged and without pericardial effusion. The coronary arteries, mitral annulus, and aortic valve leaflets are densely calcified. The main pulmonary arteries are mildly dilated suggesting pulmonary artery hypertension. Lungs and pleural spaces: There is a loculated pleural collection identified at the left lung base with overlying pleural thickening. This extends to the left apex, and measures up to 16.5 x 10 cm in transaxial dimension. There is minimal complexity/internal debris within this collection. There is a small to moderate layering right pleural effusion. There is dense airspace consolidation at the left lung base. Atelectasis is noted in the right lower lobe. Intralobular septal thickening is seen bilaterally, left greater than right. This suggests a component of congestive failure. The trachea and central airways are clear. There are scattered calcified granulomas. Mediastinum: There are calcified prevascular nodes. Mediastinal lymphadenopathy is observed. A precarinal node on image #113 measures 1.8 cm in short axis. Numerous mildly enlarged prevascular nodes measure up to 11 mm short axis. Right peritracheal nodes measure up to 12 mm in short axis. Mary: Not well assessed without IV contrast. Left hilar adenopathy is suspected. Axillae: There is no axillary lymphadenopathy. Upper abdomen: The liver is cirrhotic in morphology and heterogeneous in attenuation. There is nodularity of the hepatic surface contour. Trace perisplenic ascites is observed. Skeletal structures: The skeletal structures are osteopenic. Degenerative change is seen throughout the thoracic spine in the shoulders. No lytic or blastic bony lesions are seen. There is a healed left posterior 10th rib fracture. Soft tissues: Gynecomastia is noted. IMPRESSION: 1. Cardiomegaly with evidence of congestive failure. 2. There is a loculated and minimally complex pleural collection at the left lung base with overlying pleural thickening as above with dense left basilar consolidation. The sterility of this collection cannot be assessed by CT. 3. There is a small to moderate layering right pleural effusion with associated atelectasis. 4. Cirrhotic liver morphology and trace perisplenic ascites. 5. There is mediastinal and possibly hilar adenopathy. 6. Additional findings as above. Medications Administered Current Inpatient Medications Acetaminophen (Tylenol) 500 mg PO Q4 PRN PRN Reason: Fever Or Pain Stop: 05/05/19 23:15 Last Admin: 04/06/19 21:40 Dose: 500 mg Documented by: Aspirin (Ecotrin Ectab) 81 mg PO DAILY [facility] Stop: 05/06/19 08:59 Last Admin: 04/07/19 09:37 Dose: 81 mg Documented by: Atorvastatin Calcium (Lipitor) 40 mg PO HS [facility] Stop: 05/06/19 20:59 Last Admin: 04/06/19 20:26 Dose: 40 mg Documented by: Buspirone HCl (Buspar) 2.5 mg PO TID PRN PRN Reason: Anxiety Stop: 05/06/19 01:42 Last Admin: 04/07/19 09:35 Dose: 2.5 mg Documented by: Dextrose (Dextrose 50%) 25 - 50 ml IV UD PRN; Protocol PRN Reason: Hypoglycemia Protocol Stop: 05/05/19 23:15 Docusate Sodium (Colace) 100 mg PO BID PRN PRN Reason: Constipation Stop: 05/05/19 23:15 Last Admin: 04/06/19 08:30 Dose: 100 mg Documented by: Gabapentin (Neurontin) 100 mg PO TID [facility] Stop: 05/06/19 08:59 Last Admin: 04/07/19 13:07 Dose: 100 mg Documented by: Glucagon (Glucagen) 1 mg SQ UD PRN; Protocol PRN Reason: Hypoglycemia Protocol Stop: 05/05/19 23:15 Glucose (Glucose 40%) 15 - 30 gm PO UD PRN; Protocol PRN Reason: Hypoglycemia Protocol Stop: 05/05/19 23:15 Glucose (Dex4 Glucose) 4 - 8 tabs PO UD PRN; Protocol PRN Reason: Hypoglycemia Protocol Stop: 05/05/19 23:15 Piperacillin Sod/Tazobactam (Sod 4.5 gm/ Dextrose) 120 mls @ 30 mls/hr IV Q8H [facility]; Protocol Stop: 04/13/19 03:59 Last Admin: 04/07/19 13:06 Dose: 30 mls/hr Documented by: Sodium Chloride (Nss) 250 mls @ 15 mls/hr IV .[id number] PRN PRN Reason: For Transfusion Stop: 05/07/19 09:17 Insulin Aspart (Novolog Flexpen) 0 units SC ACHS [facility] Stop: 05/06/19 17:14 Last Admin: 04/07/19 12:51 Dose: 7 units Documented by: Insulin Glargine (Lantus Solostar Pen) 20 units SC BID [facility] Stop: 05/07/19 08:59 Last Admin: 04/07/19 09:32 Dose: 20 units Documented by: Magnesium Oxide (Mag-Ox) 400 mg PO QAM [facility] Stop: 05/06/19 08:59 Last Admin: 04/07/19 09:33 Dose: Not Given Documented by: Miscellaneous (Icu Protocol For Hyperglycemia) 1 ea N/A PRN PRN; Protocol PRN Reason: Hyperglycemia Protocol Stop: 04/07/19 23:15 Miscellaneous (Carbohydrates For Hypoglycemia) 15 - 30 gm PO UD PRN PRN Reason: Hypoglycemia Treatment Stop: 05/05/19 23:15 Miscellaneous Information (Consult Glycemic Management Pharmacy) 1 ea N/A UD PRN; Protocol PRN Reason: Consult Stop: 05/05/19 23:47 Miscellaneous Information (Consult) 1 ea N/A UD PRN PRN Reason: Consult Stop: 05/05/19 23:32 Polyethylene Glycol (Miralax Powder Packet) 17 gm PO DAILY PRN PRN Reason: Constipation Stop: 05/05/19 23:15 Sennosides (Senokot) 8.6 mg PO DAILY PRN PRN Reason: Constipation Stop: 05/05/19 23:15 Last Admin: 04/06/19 08:30 Dose: 8.6 mg Documented by: Warfarin Sodium (Coumadin) 5 mg PO DAILY@1600 [facility] Stop: 05/06/19 15:59 Last Admin: 04/06/19 14:38 Dose: Not Given Documented by:
[2019-04-07] MEDS ORDERED: PHENYLEPHRINE HCL 20 MG in DEXTROSE 5% 500 ML IV SCH (19:00)
[2019-04-07] MEDS: ATORVASTATIN 40 MG TAB PO SCH (19:51)
[2019-04-07] MEDS ORDERED: METOPROLOL TARTRATE 25 MG TAB PO SCH (21:00)
[2019-04-07] MEDS ORDERED: INSULIN GLARGINE SOLOSTAR 100 UNITS/ML 3 ML PEN SC STA (21:16)
[2019-04-07 21:32] LABS: Hematocrit (blood only) 30.3 % (42-52)
[2019-04-07] MEDS: ACETAMINOPHEN 500 MG TAB PO PRN (22:07)
[2019-04-07] MEDS ORDERED: LORazepam 0.5 MG TAB PO STA (22:07)
--- NOTE | 2019-04-07 23:33 | Consultation Report ---
DATE OF CONSULTATION: 04/07/2019 REASON FOR CONSULTATION: Left empyema. HISTORY OF PRESENT ILLNESS: Domenico Bustillo is a 74-year-old male who has been found to have an empyema of his left chest. The patient has history of acute tubular necrosis and atrial fibrillation as well as an ischemic cardiomyopathy, diabetes, coronary artery disease, valvular disease, cerebrovascular disease who presented with a community-acquired pneumonia. He had a left pleural effusion and underwent a thoracentesis yesterday by Dr. Gilmer Jordan. He drained 700 mL of a cloudy yellow fluid which has evidence of being an empyema. It is important to note that when Dr. Jordan performed his procedure it was difficult to get into chest and the patient appears to have a peel around this. I was asked to see him from a surgical standpoint. The patient has had fluid in his chest radiographically for at least the last month. His fluid has resolved on the right, but he has increased on the left. He is now growing out gram-negative bacilli. I was asked to evaluate him from a thoracic surgery standpoint and I have some concerns given the chronicity of this effusion. He also appeared to be rather ill from this. His white count on admission was 15,016. This increased to 19,020 yesterday. He is tachycardic. He also has been febrile since his admission at 38.6. PAST MEDICAL HISTORY: 1. Coronary artery disease. 2. Diabetes mellitus. 3. Atrial fibrillation. 4. Acute renal failure. 5. Pneumonia. 6. Cerebrovascular accident in past. 7. Transcatheter aortic valve replacement with subsequent sternotomy, repair of aorta and mitral repair 2 years ago. 8. Obesity. 9. Hypertension. 10. Dyslipidemia. PAST SURGICAL HISTORY: 1. Coronary artery bypass grafting. 2. Cataract extraction. 3. Percutaneous aortic valve replacement. 4. Sternotomy with mitral valve repair. MEDICATIONS AT HOME: 1. Aspirin. 2. Ambien. 3. Atorvastatin. 4. Buspirone. 5. Warfarin. 6. Colace. 7. Torsemide. 8. Flomax. 9. MiraLax. 10. Nitroglycerin p.r.n. 11. Spironolactone. 12. Magnesium oxide supplements. 13. Metoprolol. 14. Insulin. 15. Losartan. 16. Gabapentin. 17. Glipizide. ALLERGIES: LAZARUS INHIBITORS CAUSE A COUGH. SOCIAL HISTORY: The patient is originally from [place]. 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 He has never smoked cigarettes. He lives with his . He has used marijuana in the past. The patient was in the [employer] for 4 years. He was stationed in different areas of the country. FAMILY MEDICAL HISTORY: The patient's father in his 40s from cirrhosis. Mother in her 80s from "old age." He has a sister who lives in [place], he is unsure of her health status. He has 2 children and 2 grandchildren that are healthy. REVIEW OF SYSTEMS: The patient feels he has lost some weight. He has not felt well for "a while." He had a cough which was initially productive of more purulent sputum which has become more whitish. Fevers and chills. He has been unable to walk with balance issues and has been generally weak. He has lower extremity swelling. He has also become more short of breath. He denies chest pain per se. He denies any hemoptysis. He has had no palpitations. He denies any GI or complaints. He has had some skin breakdown on the anterior portion of his right leg with an abrasion which is dry. He denies any visual or auditory symptoms. He has had no neurologic symptoms. PHYSICAL EXAMINATION: GENERAL: This is a 5 feet 10 inch, 220 pound male, appears his stated age. He wears glasses. HEENT: His extraocular movements are intact. His sclerae anicteric. His tongue is midline. NECK: Supple. I do not hear carotid bruits. LUNGS: He does have decreased breath sounds on the left. He is moving air well on the right without wheezing. Currently, he has an irregularly irregular rhythm of his heart currently about 100 beats per minute. He does have a systolic ejection murmur. ABDOMEN: His abdomen is a bit protuberant, soft, nontender. EXTREMITIES: He has 1+ edema both lower legs. He has a surgical absence of his left distal hallux. He has a good pulse on the right dorsalis pedis and having trouble palpating pulses on the left, but his feet are warm and well perfused. He has no joint effusions. NEUROLOGIC: He is awake and alert, although he has decreased fine touch discrimination of his feet. ASSESSMENT AND PLAN: Left empyema. We will see what the x-ray looks like tomorrow. He has incomplete drainage and we discussed chest tubes and given the chronicity, I think that he is going to need a decortication. We will see how his films look in the morning.
[2019-04-08] MEDS: INSULIN ASPART 100 UNITS/ML 3 ML PEN SC SCH ×4 (00:01→20:46)
--- NOTE | 2019-04-08 00:13 | Hospitalist Progress Note ---
Date of Service April 08, 2019 Results & Data Vital Signs (Past 12 Hours) Vital Signs Temp Pulse Resp BP Pulse Ox 04/07/19 23:00 38.3 C H 106 H 26 H 90/56 L 99 04/07/19 22:31 102 H 25 H 86/67 L 100 04/07/19 22:00 98 H 22 88/76 L 100 04/07/19 21:00 37.0 C 108 H 26 H 88/66 L 100 04/07/19 20:00 98 H 23 109/59 L 100 04/07/19 19:31 107 H 15 105/56 L 97 04/07/19 19:01 107 H 22 113/57 L 98 04/07/19 17:31 113 H 22 100/56 L 100 04/07/19 17:30 107 H 22 99 04/07/19 17:28 101 H 21 128/55 L 99 04/07/19 17:27 109 H 22 147/130 H 98 04/07/19 17:00 105 H 27 H 78/60 L 98 04/07/19 16:31 104 H 22 87/47 L 100 04/07/19 16:30 108 H 21 99 04/07/19 16:00 108 H 21 91/56 L 99 04/07/19 15:30 112 H 22 88/63 L 98 04/07/19 15:00 104 H 25 H 91/75 L 99 04/07/19 14:42 106 H 15 85 L 04/07/19 14:41 106 H 30 H 105/54 L 100 04/07/19 13:32 108 H 24 105/82 100 04/07/19 13:00 36.7 C 102 H 18 122/38 L 100 04/07/19 12:31 104 H 25 H 112/46 L 100
[2019-04-08] MEDS ORDERED: ACETAMINOPHEN 325 MG TAB PO STA (00:14)
[2019-04-08] MEDS ORDERED: ALBUMIN 25% 50 ML IV ONE (00:14)
[2019-04-08] MEDS ORDERED: VANCOMYCIN CONSULT ACTIVE PRN (00:19)
[2019-04-08 00:30] LABS: Basophils # (auto) 0.01 K/uL (0-0.2); Basophils % (auto) 0.1 %; Eosinophils # (auto) 0.04 K/uL (0-0.5); Eosinophils % (auto) 0.3 %; Hematocrit (blood only) 27.4 % (42-52); Hemoglobin 8.9 g/dL (14.0-18.0); Immature Granulocytes # (auto) 0.04 K/uL (0.00-0.02); Immature Granulocytes % (auto) 0.3 %; Lymphocytes % (auto) 2.1 %; Mean Corpuscular Hgb Conc 32.5 g/dL (32-36); Mean Corpuscular Volume 83.5 fL (80-100); Monocytes % (auto) 5.7 %; Neutrophils # (auto) 12.78 K/uL (1.4-6.5); Neutrophils % (auto) 91.5 %; Platelet Count 173 K/uL (130-400); RDW Coefficient of Variation 17.4 % (11.5-14.5); RDW Standard Deviation 53.6 fL (36.4-46.3); Red Blood Count 3.28 M/uL (4.7-6.1); White Blood Count 13.97 K/uL (4.8-10.8)
[2019-04-08 00:39] LABS: INR 3.1 (0.9-1.1); Prothrombin Time 29.3 Seconds (9.0-12.0)
[2019-04-08 00:58] LABS: Albumin Globulin Ratio 0.4 (0.9-2); Albumin Level 1.8 gm/dl (3.4-5.0); BUN Creatinine Ratio 48.1 (10-20); Bilirubin,Total 1.1 mg/dl (0.2-1); Calcium 8.1 mg/dl (8.5-10.1); Creatinine Clr Calc Pharmacy 56.6 ml/min; Est GFR (Non-African American) 50.9; Globulin 4.7 gm/dl (2.5-4.0); Magnesium 2.6 mg/dl (1.8-2.4); Phosphorus 1.8 mg/dl (2.5-4.9); Potassium 4.4 mmol/L (3.5-5.1); Total Protein 6.5 gm/dl (6.4-8.2)
[2019-04-08] MEDS ORDERED: SODIUM PHOSPHATE 3 MMOL/1 ML 5 ML VIAL IV STA (01:09)
[2019-04-08] MEDS ORDERED: SODIUM CHLORIDE 0.9% IV ONE (01:15)
[2019-04-08] MEDS ORDERED: SODIUM PHOSPHATE IV ONE (01:15)
[2019-04-08] MEDS: PIPERACILLIN/TAZOBACTAM 4.5 GM in DEXTROSE 5% 100 ML IV SCH (04:17)
[2019-04-08] MEDS ORDERED: CONSULT PHARMACY STA (06:09)
--- NOTE | 2019-04-08 06:11 | Hospitalist Progress Note ---
Date of Service April 08, 2019 Subjective Made aware by RN of AM hemoglobin 8.9 down from 10 yesterday. Patient tachycardic, cardiac rate 110s. Multiple episodes liquid black-colored stools. Patient complaining of upper belly pain. No emesis. Patient denies CP, S OB. AP U GIB Coumadin coagulopathy (Coumadin on hold the last few days) N.p.o. for now Appropriate to hold aspirin, continue to hold Coumadin Trend H&H, transfuse PRBC if hemoglobin less than 8 and/or for symptomatic anemia Vitamin K to reverse coagulopathy appropriate given hemodynamic instability IV PPI twice daily for U GIB CT abdomen pelvis RE abdominal pain GI consult RE U GIB Will relay to AM provider. Results & Data Vital Signs (Past 12 Hours) Vital Signs Temp Pulse Resp BP Pulse Ox 04/08/19 04:07 36.7 C 120 H 21 120/69 95 04/08/19 03:01 119 H 25 H 104/52 L 95 04/08/19 02:00 113 H 22 111/69 96 04/08/19 01:03 108 H 24 123/71 96 04/08/19 01:01 37.7 C H 115 H 22 123/71 93 04/08/19 00:32 107 H 19 131/38 L 96 04/08/19 00:01 102 H 21 100/84 95 04/07/19 23:00 38.3 C H 106 H 26 H 90/56 L 99 04/07/19 22:31 102 H 25 H 86/67 L 100 04/07/19 22:00 98 H 22 88/76 L 100 04/07/19 21:00 37.0 C 108 H 26 H 88/66 L 100 04/07/19 20:00 98 H 23 109/59 L 100 04/07/19 19:31 107 H 15 105/56 L 97 04/07/19 19:01 107 H 22 113/57 L 98
[2019-04-08] MEDS: METOPROLOL TARTRATE 25 MG TAB PO SCH ×2 (06:24→20:44)
[2019-04-08] MEDS ORDERED: PHYTONADIONE 10 MG in SODIUM CHLORIDE 0.9% 50 ML IV ONE (06:24)
[2019-04-08] MEDS ORDERED: PANTOprazole 40 MG in SYRINGE 0 ML IV SCH (06:30)
[2019-04-08] MEDS: GABAPENTIN 100 MG CAP PO SCH ×3 (07:50→20:45)
--- NOTE | 2019-04-08 07:56 | Critical Care Progress Note ---
Date of Service April 08, 2019 Assessment & Plan (1) Admitted to intensive care unit: Reason Critically Ill: Sever Sepsis 2/2 Empyema/PNA now no longer requiring vasopressor support, possible GI bleeding PLAN: NEURO CAM ICU: NEGATIVE -Anxiety- cont Buspirone 2.5 mg TID prn -Will consider clinical dx of depression moving forward. Pt has had flat affect here, although seems improved today somewhat -No other acute concerns or complaints. CARDIO -Septic shock-resolved -CHF- ECHO 04/06: LV systolic function moderately to severely reduced. EF 30-35%. -CAD- cont Aspirin, Atorvastatin. Hold Losartan given MARISA. Restarted metoprolol tartrate -HTN/Afib-continue to hold losartan 1 more day given multiple medical concerns -h/o aortic valve replacement with mitral valve repair -Ischemic cardiomyopathy- pt declining defibrillator placement PULMONARY -04/06- bedside ultrasound with pleural effusion, s/p thoracentesis -L sided empyema --> E.Coli ESBL. Converted to ertapenem -consult Thoracic Sx- Dr. Paula: Planning decortication at some point in future -sat well on NC. Will titrate to keep sat >92% RENAL/ -ARF- prerenal vs ATN. Cr improving. Good UOP -likely ATN 2/2 shock from sepsis -No other acute concerns or complaints GI -Reports of black tarry stool --> positive fecal occult -NPO -Cont IV PPI -Concerns for cholecystitis, consulted gastroenterology for MRCP: no intra or extrahepatic biliary ductal dilatation, no clear evidence of choledocholithiasis -GI with plans for EGD if INR corrected <1.5 -Gen Surg: clinical picture dictates against an acute surgical problem, likely he has chronic cholecystitis ENDO -A1C 7.9 -Diabetic Neuropathy- cont Gabapentin 100 mg TID -ICU Hyperglycemia protocol. Insulin gtt started HEME -INR 3.3 reversed with 10 mg IV vitamin K. Repeat INR 2.0. Repeat INR pending -Anemia likely 2/2 marrow suppression from sepsis and acute blood loss from gastrointestinal hemorrhage ID -Concern for evolving sepsis. Thoracic fluid grew Ecoli ESBL. Largely resolved, convert to ertapenem repeat blood cultures given continued febrile illness -cont trend fever curve LINES: PIV x2 DVT Prophylaxis: SCDs Full Code DISPO: ICU Supervising Physician Co-Signing Physician Notes Dr. Doherty was resident physician during care of patient. I separately evaluated patient for latif portions of the history and the exam. I was present during the critical portion of medical decision making, and I discussed the case with the resident. I generally agree with the findings and plan. Patient was discussed in multidisciplinary rounds, I discussed the case with Stuart Lares of general surgery and gastroenterology. Will obtain MRCP, patient was given 10 mg vitamin K overnight we will follow-up repeat PT/INR continue to trend LFTs concern for choledocholithiasis may require ERCP which would also help elucidate etiology of Hemoccult positive stools Converted Zosyn to ertapenem given persistent fevers repeat blood cultures I am concerned for evolving sepsis with possible sources including the empyema as well as possible biliary source. I have personally spent 35 minutes of critical care time in the direct management of this patient. This is a life/limb threatening event. This includes time spent evaluating patient, direct bedside care, chart review, placing orders, interpretation of diagnostic studies, discussion with consultants, patient, and/or family members regarding treatment decisions, as well as other required patient management activities. This time is exclusive of all separately billable procedures, and teaching time and separate from and in addition to any other critical care service time. Subjective 74 y/o M found in bed this AM. Overnight reports of ongoing liquid black colored stools. Started on IV PPI. Pt denies emesis, SOB, cough. Notes some upper belly pain. NPO status. Pt agreeable with plan for MRCP today. No other acute concerns or complaints. Review of Systems Review of Systems: All systems reviewed & are unremarkable except as noted in HPI & below Physical Exam Constitutional: WD/WN, vitals as above Eyes: PERRL, conjunctivae normal, anicteric sclerae ENMT: external ear and nose normal, oropharynx normal Respiratory: normal respiratory effort, lungs clear to auscultation Cardiovascular: RRR, no murmur, no edema Gastrointestinal (Abdomen): normal bowel sounds, soft, nontender, no hepatosplenomegaly Skin: no rashes, warm and dry Psychiatric: A+Ox3, euthymic affect Lymphatic: nonpitting LE edema Results & Data Vital Signs (Past 12 Hours) Vital Signs Temp Pulse Resp BP Pulse Ox 04/08/19 06:31 120 H 29 H 116/57 L 94 04/08/19 06:01 120 H 27 H 115/72 94 04/08/19 05:29 117 H 18 122/65 95 04/08/19 04:07 36.7 C 120 H 21 120/69 95 04/08/19 03:01 119 H 25 H 104/52 L 95 04/08/19 02:00 113 H 22 111/69 96 04/08/19 01:03 108 H 24 123/71 96 04/08/19 01:01 37.7 C H 115 H 22 123/71 93 04/08/19 00:32 107 H 19 131/38 L 96 04/08/19 00:01 102 H 21 100/84 95 04/07/19 23:00 38.3 C H 106 H 26 H 90/56 L 99 04/07/19 22:31 102 H 25 H 86/67 L 100 04/07/19 22:00 98 H 22 88/76 L 100 04/07/19 21:00 37.0 C 108 H 26 H 88/66 L 100 04/07/19 20:00 98 H 23 109/59 L 100 Laboratory Results Laboratory Results - last 24 hr 04/07/19 04/07/19 04/07/19 09:43 15:17 16:37 WBC RBC Hgb 10.4 L Hct 31.5 L MCV MCH MCHC RDW Std Deviation RDW Coeff of Abi Plt Count MPV Immature Gran % (Auto) Neut % (Auto) Lymph % (Auto) Schley % (Auto) Eos % (Auto) Baso % (Auto) Immature Gran # (Auto) Neut # (Auto) Lymph # (Auto) Schley # (Auto) Eos # (Auto) Baso # (Auto) PT INR Sodium Potassium Chloride Carbon Dioxide Anion Gap BUN Creatinine Est Cr Clr Drug Dosing Est GFR ( Amer) Est GFR (Non-Af Amer) BUN/Creatinine Ratio Glucose POC Glucose 259 H Lactate Calcium Phosphorus Magnesium Total Bilirubin Direct Bilirubin AST ALT Alkaline Phosphatase Total Protein Albumin Globulin Albumin/Globulin Ratio Lipase Stl C. diff Tox B Gene Blood Type A Positive Antibody Screen NEGATIVE 04/07/19 04/07/19 04/07/19 21:01 21:02 23:58 WBC RBC Hgb 10.0 L Hct 30.3 L MCV MCH MCHC RDW Std Deviation RDW Coeff of Abi Plt Count MPV Immature Gran % (Auto) Neut % (Auto) Lymph % (Auto) Schley % (Auto) Eos % (Auto) Baso % (Auto) Immature Gran # (Auto) Neut # (Auto) Lymph # (Auto) Schley # (Auto) Eos # (Auto) Baso # (Auto) PT INR Sodium Potassium Chloride Carbon Dioxide Anion Gap BUN Creatinine Est Cr Clr Drug Dosing Est GFR ( Amer) Est GFR (Non-Af Amer) BUN/Creatinine Ratio Glucose POC Glucose 292 H 238 H Lactate Calcium Phosphorus Magnesium Total Bilirubin Direct Bilirubin AST ALT Alkaline Phosphatase Total Protein Albumin Globulin Albumin/Globulin Ratio Lipase Stl C. diff Tox B Gene Blood Type Antibody Screen 04/08/19 04/08/19 04/08/19 00:21 00:21 00:21 WBC 13.97 H RBC 3.28 L Hgb 8.9 L Hct 27.4 L MCV 83.5 MCH 27.1 MCHC 32.5 RDW Std Deviation 53.6 H RDW Coeff of Abi 17.4 H Plt Count 173 MPV 10.0 Immature Gran % (Auto) 0.3 Neut % (Auto) 91.5 Lymph % (Auto) 2.1 Schley % (Auto) 5.7 Eos % (Auto) 0.3 Baso % (Auto) 0.1 Immature Gran # (Auto) 0.04 H Neut # (Auto) 12.78 H Lymph # (Auto) 0.30 L Schley # (Auto) 0.80 H Eos # (Auto) 0.04 Baso # (Auto) 0.01 PT 29.3 H INR 3.1 H Sodium 140 D Potassium 4.4 Chloride 109 H Carbon Dioxide 22 Anion Gap 9.0 BUN 65 H Creatinine 1.36 Est Cr Clr Drug Dosing 56.6 Est GFR ( Amer) 59.0 Est GFR (Non-Af Amer) 50.9 BUN/Creatinine Ratio 48.1 H Glucose 199 H POC Glucose Lactate Calcium 8.1 L Phosphorus 1.8 L D Magnesium 2.6 H Total Bilirubin 1.1 H Direct Bilirubin AST 39 H ALT 34 Alkaline Phosphatase 193 H Total Protein 6.5 Albumin 1.8 L Globulin 4.7 H Albumin/Globulin Ratio 0.4 L Lipase Stl C. diff Tox B Gene Blood Type Antibody Screen 04/08/19 04/08/19 04/08/19 00:21 00:21 04:13 WBC RBC Hgb Hct MCV MCH MCHC RDW Std Deviation RDW Coeff of Abi Plt Count MPV Immature Gran % (Auto) Neut % (Auto) Lymph % (Auto) Schley % (Auto) Eos % (Auto) Baso % (Auto) Immature Gran # (Auto) Neut # (Auto) Lymph # (Auto) Schley # (Auto) Eos # (Auto) Baso # (Auto) PT INR Sodium Potassium Chloride Carbon Dioxide Anion Gap BUN Creatinine Est Cr Clr Drug Dosing Est GFR ( Amer) Est GFR (Non-Af Amer) BUN/Creatinine Ratio Glucose POC Glucose 164 H Lactate 1.9 Calcium Phosphorus Magnesium Total Bilirubin Direct Bilirubin AST ALT Alkaline Phosphatase Total Protein Albumin Globulin Albumin/Globulin Ratio Lipase 775 H Stl C. diff Tox B Gene Blood Type Antibody Screen 04/08/19 04/08/19 04/08/19 06:05 08:28 08:28 WBC RBC Hgb 8.5 L Hct 25.7 L MCV MCH MCHC RDW Std Deviation RDW Coeff of Abi Plt Count MPV Immature Gran % (Auto) Neut % (Auto) Lymph % (Auto) Schley % (Auto) Eos % (Auto) Baso % (Auto) Immature Gran # (Auto) Neut # (Auto) Lymph # (Auto) Schley # (Auto) Eos # (Auto) Baso # (Auto) PT INR Sodium 141 Potassium 4.4 Chloride 110 H Carbon Dioxide 19 L Anion Gap 12.0 H BUN 73 H Creatinine 1.27 Est Cr Clr Drug Dosing 60.6 Est GFR ( Amer) 64.1 Est GFR (Non-Af Amer) 55.3 BUN/Creatinine Ratio 57.6 H Glucose 203 H POC Glucose Lactate Calcium 8.5 Phosphorus Magnesium Total Bilirubin 1.3 H Direct Bilirubin 0.9 H AST 42 H ALT 34 Alkaline Phosphatase 180 H Total Protein 6.5 Albumin 1.9 L Globulin Albumin/Globulin Ratio Lipase Stl C. diff Tox B Gene Negative Cdiff Gene Blood Type Antibody Screen 04/08/19 04/08/19 04/08/19 09:11 10:59 12:07 WBC RBC Hgb 8.7 L Hct 26.0 L MCV MCH MCHC RDW Std Deviation RDW Coeff of Abi Plt Count MPV Immature Gran % (Auto) Neut % (Auto) Lymph % (Auto) Schley % (Auto) Eos % (Auto) Baso % (Auto) Immature Gran # (Auto) Neut # (Auto) Lymph # (Auto) Schley # (Auto) Eos # (Auto) Baso # (Auto) PT INR Sodium Potassium Chloride Carbon Dioxide Anion Gap BUN Creatinine Est Cr Clr Drug Dosing Est GFR ( Amer) Est GFR (Non-Af Amer) BUN/Creatinine Ratio Glucose POC Glucose 239 H 256 H Lactate Calcium Phosphorus Magnesium Total Bilirubin Direct Bilirubin AST ALT Alkaline Phosphatase Total Protein Albumin Globulin Albumin/Globulin Ratio Lipase Stl C. diff Tox B Gene Blood Type Antibody Screen 04/08/19 04/08/19 12:07 12:52 WBC RBC Hgb Hct MCV MCH MCHC RDW Std Deviation RDW Coeff of Abi Plt Count MPV Immature Gran % (Auto) Neut % (Auto) Lymph % (Auto) Schley % (Auto) Eos % (Auto) Baso % (Auto) Immature Gran # (Auto) Neut # (Auto) Lymph # (Auto) Schley # (Auto) Eos # (Auto) Baso # (Auto) PT 19.6 H INR 2.0 H Sodium Potassium Chloride Carbon Dioxide Anion Gap BUN Creatinine Est Cr Clr Drug Dosing Est GFR ( Amer) Est GFR (Non-Af Amer) BUN/Creatinine Ratio Glucose POC Glucose 255 H Lactate Calcium Phosphorus Magnesium Total Bilirubin Direct Bilirubin AST ALT Alkaline Phosphatase Total Protein Albumin Globulin Albumin/Globulin Ratio Lipase Stl C. diff Tox B Gene Blood Type Antibody Screen Medications Administered Current Inpatient Medications Acetaminophen (Tylenol) 500 mg PO Q4 PRN PRN Reason: Fever Or Pain Stop: 05/05/19 23:15 Last Admin: 04/07/19 22:07 Dose: 500 mg Documented by: Aspirin (Ecotrin Ectab) 81 mg PO DAILY [facility] Stop: 05/06/19 08:59 Last Admin: 04/07/19 09:37 Dose: 81 mg Documented by: Atorvastatin Calcium (Lipitor) 40 mg PO HS [facility] Stop: 05/06/19 20:59 Last Admin: 04/07/19 19:51 Dose: 40 mg Documented by: Buspirone HCl (Buspar) 2.5 mg PO TID PRN PRN Reason: Anxiety Stop: 05/06/19 01:42 Last Admin: 04/07/19 09:35 Dose: 2.5 mg Documented by: Dextrose (Dextrose 50%) 25 - 50 ml IV UD PRN; Protocol PRN Reason: Hypoglycemia Protocol Stop: 05/05/19 23:15 Docusate Sodium (Colace) 100 mg PO BID PRN PRN Reason: Constipation Stop: 05/05/19 23:15 Last Admin: 04/06/19 08:30 Dose: 100 mg Documented by: Gabapentin (Neurontin) 100 mg PO TID [facility] Stop: 05/06/19 08:59 Last Admin: 04/08/19 14:14 Dose: 100 mg Documented by: Glucagon (Glucagen) 1 mg SQ UD PRN; Protocol PRN Reason: Hypoglycemia Protocol Stop: 05/05/19 23:15 Glucose (Glucose 40%) 15 - 30 gm PO UD PRN; Protocol PRN Reason: Hypoglycemia Protocol Stop: 05/05/19 23:15 Glucose (Dex4 Glucose) 4 - 8 tabs PO UD PRN; Protocol PRN Reason: Hypoglycemia Protocol Stop: 05/05/19 23:15 Ertapenem 1,000 mg/ Sodium (Chloride) 60 mls @ 100 mls/hr IV Q24H [facility] Stop: 04/18/19 10:59 Last Infusion: 04/08/19 11:09 Dose: Infused Documented by: Pantoprazole Sodium 40 mg/ (Dextrose) 100 mls @ 20 mls/hr IV Q5H [facility] Stop: 05/08/19 09:29 Last Admin: 04/08/19 14:55 Dose: 20 mls/hr Documented by: Lorazepam (Ativan) 0.5 mg in 1 mls @ 1 mls/min IV ONE PRN PRN Reason: Anxiety Stop: 05/08/19 09:05 Insulin Human Regular 250 (units/ Sodium Chloride) 250 mls @ 2.5 mls/hr IV .Q24H [facility]; Protocol Stop: 05/08/19 13:59 Last Admin: 04/08/19 14:12 Dose: 2.5 units/hr, 2.5 mls/hr Documented by: Insulin Aspart (Novolog Flexpen) 0 units SC Q4 [facility] Stop: 05/08/19 15:59 Insulin Aspart (Novolog Flexpen) 0 units SC ACHS [facility] Stop: 05/08/19 16:29 Insulin Glargine (Lantus Solostar Pen) 20 units SC BID [facility] Stop: 05/07/19 08:59 Last Admin: 04/08/19 09:04 Dose: 20 units Documented by: Magnesium Oxide (Mag-Ox) 400 mg PO QAM [facility] Stop: 05/06/19 08:59 Last Admin: 04/07/19 09:33 Dose: Not Given Documented by: Metoprolol Tartrate (Lopressor) 12.5 mg PO BID [facility] Stop: 05/08/19 06:14 Last Admin: 04/08/19 06:24 Dose: 12.5 mg Documented by: Miscellaneous (Carbohydrates For Hypoglycemia) 15 - 30 gm PO UD PRN PRN Reason: Hypoglycemia Treatment Stop: 05/05/19 23:15 Miscellaneous Information (Consult Glycemic Management Pharmacy) 1 ea N/A UD PRN; Protocol PRN Reason: Consult Stop: 05/05/19 23:47 Polyethylene Glycol (Miralax Powder Packet) 17 gm PO DAILY PRN PRN Reason: Constipation Stop: 05/05/19 23:15 Sennosides (Senokot) 8.6 mg PO DAILY PRN PRN Reason: Constipation Stop: 05/05/19 23:15 Last Admin: 04/06/19 08:30 Dose: 8.6 mg Documented by: Warfarin Sodium (Coumadin) 5 mg PO DAILY@1600 [facility] Stop: 05/06/19 15:59 Last Admin: 04/06/19 14:38 Dose: Not Given Documented by: PG Care Time/CCT Critical Care Time: Yes Total Critical Care Time: 35 Resident Activity Tracking Resident Involvement: Resident Care Provided Care Provided: Adult Hospital Medicine
--- NOTE | 2019-04-08 08:13 | CT Scan Report ---
ABDOMEN AND PELVIS CT WITHOUT CONTRAST CT DOSE: 1087.78 mGycm HISTORY: Generalized abdominal pain. GI bleed. TECHNIQUE: Multiaxial CT images of the abdomen and pelvis were performed without contrast. A dose lo wering technique was utilized adhering to the principles of ALARA. COMPARISON STUDY: Chest CT 04/07/2019. FINDINGS: Small right pleural effusion persists. There is a partially loculated moderate left basilar pleural effusion. This is also unchanged. There is associated mild left pleural thickening. The left lower lobe dense consolidation is also unchanged. Interlobular septal thickening and groundglass den sities within the right lung base persist. This may represent mild congestive change. No pneumoperito neum. No pneumatosis. Old left-sided transverse process fractures within the lumbar spine and old lef t rib fractures. Poststernotomy changes. Small fat-containing right inguinal hernia. Mild bladder wal l thickening which may be due to underdistention. The prostate gland is mildly enlarged. The unenhanc ed liver, spleen, and adrenal glands are unremarkable. Mild bilateral perinephric edema. This is like ly chronic. A 6 mm exophytic hypodense lesion within the lower pole the left kidney. This is technica lly too small to characterize. The majority of the renal sinus calcifications appear vascular. There is also a 7 mm stone within the lower pole of the left kidney. No ureteral stones. No hydronephrosis. Mild retroperitoneal/extraperitoneal edema is noted primarily adjacent to the iliac vessels. Mild ga llbladder wall thickening with multiple punctate stones and mild adjacent inflammatory change. There is also mild inflammatory change adjacent to the pancreatic head. No intrahepatic bile duct dilatatio n. No retroperitoneal lymphadenopathy. Fluid within the colon. Extensive colonic diverticulosis. No e vidence for diverticulitis. No definite bowel wall thickening or obstruction on this noncontrast stud y. There is suboptimal evaluation for bowel pathology due to the lack of intravenous and oral contras t. Normal appendix. IMPRESSION: 1. Mild gallbladder thickening with associated cholelithiasis and pericholecystic inflammatory change . This is highly concerning for acute cholecystitis. 2. There is also mild inflammatory change near the pancreatic head which may be reactive from the abelino pected acute cholecystitis. A superimposed mild pancreatitis could also have a similar appearance. 3. No change in the bilateral pleural effusions as described above. The partially loculated left pleu ral effusion demonstrates mild pleural thickening. 4. Mild interstitial pulmonary edema is noted. 5. Left-sided nephrolithiasis. No ureteral stones. No hydronephrosis. 6. Mild retroperitoneal/extraperitoneal edema. This is nonspecific. 7. Colonic diverticulosis. No definite bowel wall thickening or obstruction. Electronically signed by: Jadiel Washington M.D. 04/08/2019 8:11 AM
[2019-04-08 08:59] LABS: Hematocrit (blood only) 25.7 % (42-52); Hemoglobin 8.5 g/dL (14.0-18.0)
[2019-04-08] MEDS: INSULIN GLARGINE SOLOSTAR 100 UNITS/ML 3 ML PEN SC SCH ×2 (09:04→20:47)
[2019-04-08] MEDS ORDERED: LORazepam 0.5 MG/1 ML VIAL IV PRN (09:06)
[2019-04-08] MEDS ORDERED: PANTOprazole 80 MG in DEXTROSE 5% 100 ML IV ONE (09:15)
[2019-04-08 09:25] LABS: Albumin Level 1.9 gm/dl (3.4-5.0); BUN Creatinine Ratio 57.6 (10-20); Bilirubin Direct 0.9 mg/dl (0-0.2); Calcium 8.5 mg/dl (8.5-10.1); Creatinine Clr Calc Pharmacy 60.6 ml/min; Est GFR (African American) 64.1; Est GFR (Non-African American) 55.3; Potassium 4.4 mmol/L (3.5-5.1)
[2019-04-08 09:27] LABS: Bilirubin,Total 1.3 mg/dl (0.2-1); Total Protein 6.5 gm/dl (6.4-8.2)
[2019-04-08] MEDS: PANTOprazole 40 MG in DEXTROSE 5% 100 ML IV SCH ×3 (09:48→20:44)
--- NOTE | 2019-04-08 10:10 | Surgery Consultation ---
Date of Consultation April 08, 2019 Assessment & Plan (1) Cholecystitis, chronic: At this time the patient has no symptoms that point to an acute cholecystitis most likely he has had chronic cholecystitis basis of cholelithiasis although asymptomatic Reviewed the CAT scan of the abdomen with the radiologist showed had some fluid in the gallbladder wall may have early signs of cirrhosis had fluid in the run the pancreatic head and this may be all related to fluid retention due to his multiple other conditions rather than localized in the area secondary to cholecystitis At this point I would not image amending further certainly one can get a HIDA scan but even with that at this point the clinical picture dictates against an acute surgical problem We will keep a close eye on the patient and continue reevaluating him for any changes regarding his gallbladder pathology Present on Admission?: Yes History of Present Illness Attending Physician: Alli Samuel MD This is a 74-year-old gentleman with multiple comorbid conditions and surgeries who is scheduled to have a left chest decortication for an empyema tomorrow we were asked to see and comment from the general surgical aspect on a recent CT scan which showed cholelithiasis some wall thickening pericholecystic fluid with the possibility that this may be acute cholecystitis Allergies Allergy/AdvReac Type Severity Reaction Status Date / Time lisinopril AdvReac Intermediate COUGH Verified 04/05/19 21:24 Home Medications Home Medications Medication Instructions Recorded Confirmed Type acetaminophen [Tylenol Extra 500 mg PO Q4 PRN 04/05/19 04/05/19 History Strength] aspirin [Aspir-81] 81 mg PO DAILY 04/05/19 04/05/19 History atorvastatin 40 mg PO HS 04/05/19 04/05/19 History buspirone 2.5 mg PO BID 04/05/19 04/05/19 History docusate sodium 100 mg PO BID PRN 04/05/19 04/05/19 History gabapentin 600 mg PO TID 04/05/19 04/05/19 History glipizide 5 mg PO DAILY 04/05/19 04/05/19 History insulin glargine [Lantus U-100 0 unit SUBCUT DAILY 04/05/19 04/05/19 History Insulin] losartan 12.5 mg PO DAILY 04/05/19 04/05/19 History magnesium oxide 400 mg PO QAM 04/05/19 04/05/19 History metoprolol succinate 25 mg PO DAILY 04/05/19 04/05/19 History nitroglycerin [Nitrostat] 0.4 mg SUBLINGUAL DIRECTED PRN 04/05/19 04/05/19 History polyethylene glycol 3350 [Miralax] 17 g PO DAILY PRN 04/05/19 04/05/19 History sennosides 8.6 mg PO DAILY PRN 04/05/19 04/05/19 History spironolactone 25 mg PO DAILY 04/05/19 04/05/19 History tamsulosin [Flomax] 0.4 mg PO HS 04/05/19 04/05/19 History torsemide 20 mg PO QPM 04/05/19 04/05/19 History torsemide 40 mg PO QAM 04/05/19 04/05/19 History warfarin 5 mg PO DAILY 04/05/19 04/05/19 History zolpidem 5 mg PO HS PRN 04/05/19 04/05/19 History Patient History Medical History Sepsis (Acute 08/24/14) Atrial fibrillation (Chronic) Coronary artery disease (Chronic) Dyslipidemia (Chronic) Diabetes mellitus, type II (Chronic) Hypertension (Chronic) Stroke (Chronic) Difficult airway (Chronic) Diabetic neuropathy (Chronic) History of renal calculi (Chronic) Aortic stenosis (Chronic) "severe per echo 06/17/14" CHF (congestive heart failure) (Chronic) "LVEF 30-35% by echo 06/17/14" Ulcer of toe due to diabetes mellitus (Acute) Respiratory failure, acute Surgical History Status post coronary artery bypass grafting (Chronic) Status post cataract extraction (Chronic) Family History Unknown Family history non-contributory Social History Preferred Language: Algerian Communication Ability: Effective Beliefs That Will Affect Care: None Current Living Situation: Spouse Feels Safe at Home: Yes Safety Concerns: Feels Safe At This Time Smoking Status: Never smoker Hx Alcohol Use: Yes Alcohol type: beer Hx Substance Use: Yes substance use type: marijuana Review of Systems Review of Systems: I interviewed the patient who is laying comfortably in bed in ICU room 104 his at bedside the only complain that he has his left chest discomfort most accentuated with coughing He denies any history of gallbladder dysfunction never had any gallbladder symptoms in the past and certainly is not having any symptoms at this time inc luding no pain whatsoever in the right upper quadrant Physical Exam Physical Exam: Patient is alert coherent as mentioned no acute distress except pain with coughing in the left chest area The sclerae nonicteric Abdomen slightly obese with no localized tenderness no masses no right upper quadrant guarding and no Porter sign Results & Data Vital Signs (Past 12 Hours) Vital Signs Temp Pulse Pulse Resp BP BP Pulse Ox 04/08/19 08:00 37.8 C H 122 H 122 H 20 126/82 96 04/08/19 06:31 120 H 29 H 116/57 L 94 04/08/19 06:01 120 H 27 H 115/72 94 04/08/19 05:29 117 H 18 122/65 95 04/08/19 04:07 36.7 C 120 H 21 120/69 95 04/08/19 03:01 119 H 25 H 104/52 L 95 04/08/19 02:00 113 H 22 111/69 96 04/08/19 01:03 108 H 24 123/71 96 04/08/19 01:01 37.7 C H 115 H 22 123/71 93 04/08/19 00:32 107 H 19 131/38 L 96 04/08/19 00:01 102 H 21 100/84 95 04/07/19 23:00 38.3 C H 106 H 26 H 90/56 L 99 04/07/19 22:31 102 H 25 H 86/67 L 100 all laboratory studies including microbiology was reviewed and also reviewed the CT scan with of the abdomen with the radiologist
--- NOTE | 2019-04-08 10:11 | Cardiology Progress Note ---
Date of Service April 08, 2019 Assessment & Plan (1) Sepsis: The patient is currently hemodynamically stable. He is being treated for a pneumonia and possible empyema. The patient is to have a VATS procedure at some time during this hospital admission. Currently he has chronic cardiac prob lems but he is stable. (2) Pneumonia: (3) Acute renal failure: (4) Atrial fibrillation: (5) Coronary artery disease: (6) Diabetes mellitus, type II: (7) Stroke: (8) S/P TAVR (transcatheter aortic valve replacement): (9) GI bleeding: This is a new finding that just occurred overnight. He is off of anticoagulation at this point and the GI service and general surgery have consulted. He is anemic but hemodynamically stable. Subjective The patient had GI bleeding through the night. His anticoagulation has been held for several days and he was given vitamin K. The GI service as well as general surgery have seen the patient. Apparent incidental finding on imaging is cholelithiasis. The patient is going to have an MRI completed and consideration given for endoscopy with ERCP otherwise he would have supportive care. Review of Systems Review of Systems: All systems reviewed & are unremarkable except as noted in HPI & below The patient is stable from a cardiac standpoint and new findings are as stated above GI bleeding. Physical Exam Physical Exam: General: no acute distress and stated age Head: normocephalic, no masses, lesions, tenderness or abnormalities Eyes: conjunctiva are pink and non-injected, sclera clear Neck: supple, no adenopathy, no bruits, normal jugular venous pulse, no hepatoj ugular reflux Chest: normal shape and normal respiratory effort Lungs: clear to auscultation and percussion Cardiac Exam: - regular rate & rhythm, no murmurs gallops or rubs - normal S1, normal S2 Pulses: 2(+) throughout Abdomen: abdomen soft, non-tender, no abnormal masses and no hepatosplenomegaly Musculoskeletal: no gait disturbance, no joint inflammation, no deforming arthritis Extremities: no edema and no cyanosis Neuro: grossly normal exam Results & Data Vital Signs (Past 12 Hours) Vital Signs Temp Pulse Pulse Resp BP BP Pulse Ox 04/08/19 08:00 37.8 C H 122 H 122 H 20 126/82 96 04/08/19 06:31 120 H 29 H 116/57 L 94 04/08/19 06:01 120 H 27 H 115/72 94 04/08/19 05:29 117 H 18 122/65 95 04/08/19 04:07 36.7 C 120 H 21 120/69 95 04/08/19 03:01 119 H 25 H 104/52 L 95 04/08/19 02:00 113 H 22 111/69 96 04/08/19 01:03 108 H 24 123/71 96 04/08/19 01:01 37.7 C H 115 H 22 123/71 93 04/08/19 00:32 107 H 19 131/38 L 96 04/08/19 00:01 102 H 21 100/84 95 04/07/19 23:00 38.3 C H 106 H 26 H 90/56 L 99 04/07/19 22:31 102 H 25 H 86/67 L 100 Laboratory Results Laboratory Results - last 24 hr 04/07/19 04/07/19 04/07/19 09:43 11:44 13:10 WBC RBC Hgb Hct MCV MCH MCHC RDW Std Deviation RDW Coeff of Abi Plt Count MPV Immature Gran % (Auto) Neut % (Auto) Lymph % (Auto) Wayne % (Auto) Eos % (Auto) Baso % (Auto) Immature Gran # (Auto) Neut # (Auto) Lymph # (Auto) Wayne # (Auto) Eos # (Auto) Baso # (Auto) PT INR Sodium Potassium Chloride Carbon Dioxide Anion Gap BUN Creatinine Est Cr Clr Drug Dosing Est GFR ( Amer) Est GFR (Non-Af Amer) BUN/Creatinine Ratio Glucose POC Glucose 196 H Lactate Calcium Phosphorus Magnesium Total Bilirubin Direct Bilirubin AST ALT Alkaline Phosphatase Total Protein Albumin Globulin Albumin/Globulin Ratio Lipase Urine Color Yellow Urine Appearance Clear Urine pH 5.0 Ur Specific Stoddard 1.024 Urine Protein Trace H Urine Glucose (UA) Negative Urine Ketones Negative Urine Blood Negative Urine Nitrite Negative Urine Bilirubin Negative Urine Urobilinogen Negative Ur Leukocyte Esterase Negative Urine WBC (Auto) 1-5 Urine RBC (Auto) 10-30 H U Hyaline Cast (Auto) 0 U Epithel Cells (Auto) 10-20 H Urine Bacteria (Auto) Negative Stl C. diff Tox B Gene Blood Type A Positive Antibody Screen NEGATIVE 04/07/19 04/07/19 04/07/19 15:17 16:37 21:01 WBC RBC Hgb 10.4 L 10.0 L Hct 31.5 L 30.3 L MCV MCH MCHC RDW Std Deviation RDW Coeff of Abi Plt Count MPV Immature Gran % (Auto) Neut % (Auto) Lymph % (Auto) Wayne % (Auto) Eos % (Auto) Baso % (Auto) Immature Gran # (Auto) Neut # (Auto) Lymph # (Auto) Wayne # (Auto) Eos # (Auto) Baso # (Auto) PT INR Sodium Potassium Chloride Carbon Dioxide Anion Gap BUN Creatinine Est Cr Clr Drug Dosing Est GFR ( Amer) Est GFR (Non-Af Amer) BUN/Creatinine Ratio Glucose POC Glucose 259 H Lactate Calcium Phosphorus Magnesium Total Bilirubin Direct Bilirubin AST ALT Alkaline Phosphatase Total Protein Albumin Globulin Albumin/Globulin Ratio Lipase Urine Color Urine Appearance Urine pH Ur Specific Stoddard Urine Protein Urine Glucose (UA) Urine Ketones Urine Blood Urine Nitrite Urine Bilirubin Urine Urobilinogen Ur Leukocyte Esterase Urine WBC (Auto) Urine RBC (Auto) U Hyaline Cast (Auto) U Epithel Cells (Auto) Urine Bacteria (Auto) Stl C. diff Tox B Gene Blood Type Antibody Screen 04/07/19 04/07/19 04/08/19 21:02 23:58 00:21 WBC 13.97 H RBC 3.28 L Hgb 8.9 L Hct 27.4 L MCV 83.5 MCH 27.1 MCHC 32.5 RDW Std Deviation 53.6 H RDW Coeff of Abi 17.4 H Plt Count 173 MPV 10.0 Immature Gran % (Auto) 0.3 Neut % (Auto) 91.5 Lymph % (Auto) 2.1 Wayne % (Auto) 5.7 Eos % (Auto) 0.3 Baso % (Auto) 0.1 Immature Gran # (Auto) 0.04 H Neut # (Auto) 12.78 H Lymph # (Auto) 0.30 L Wayne # (Auto) 0.80 H Eos # (Auto) 0.04 Baso # (Auto) 0.01 PT INR Sodium Potassium Chloride Carbon Dioxide Anion Gap BUN Creatinine Est Cr Clr Drug Dosing Est GFR ( Amer) Est GFR (Non-Af Amer) BUN/Creatinine Ratio Glucose POC Glucose 292 H 238 H Lactate Calcium Phosphorus Magnesium Total Bilirubin Direct Bilirubin AST ALT Alkaline Phosphatase Total Protein Albumin Globulin Albumin/Globulin Ratio Lipase Urine Color Urine Appearance Urine pH Ur Specific Stoddard Urine Protein Urine Glucose (UA) Urine Ketones Urine Blood Urine Nitrite Urine Bilirubin Urine Urobilinogen Ur Leukocyte Esterase Urine WBC (Auto) Urine RBC (Auto) U Hyaline Cast (Auto) U Epithel Cells (Auto) Urine Bacteria (Auto) Stl C. diff Tox B Gene Blood Type Antibody Screen 04/08/19 04/08/19 04/08/19 00:21 00:21 00:21 WBC RBC Hgb Hct MCV MCH MCHC RDW Std Deviation RDW Coeff of Abi Plt Count MPV Immature Gran % (Auto) Neut % (Auto) Lymph % (Auto) Wayne % (Auto) Eos % (Auto) Baso % (Auto) Immature Gran # (Auto) Neut # (Auto) Lymph # (Auto) Wayne # (Auto) Eos # (Auto) Baso # (Auto) PT 29.3 H INR 3.1 H Sodium 140 D Potassium 4.4 Chloride 109 H Carbon Dioxide 22 Anion Gap 9.0 BUN 65 H Creatinine 1.36 Est Cr Clr Drug Dosing 56.6 Est GFR ( Amer) 59.0 Est GFR (Non-Af Amer) 50.9 BUN/Creatinine Ratio 48.1 H Glucose 199 H POC Glucose Lactate 1.9 Calcium 8.1 L Phosphorus 1.8 L D Magnesium 2.6 H Total Bilirubin 1.1 H Direct Bilirubin AST 39 H ALT 34 Alkaline Phosphatase 193 H Total Protein 6.5 Albumin 1.8 L Globulin 4.7 H Albumin/Globulin Ratio 0.4 L Lipase Urine Color Urine Appearance Urine pH Ur Specific Stoddard Urine Protein Urine Glucose (UA) Urine Ketones Urine Blood Urine Nitrite Urine Bilirubin Urine Urobilinogen Ur Leukocyte Esterase Urine WBC (Auto) Urine RBC (Auto) U Hyaline Cast (Auto) U Epithel Cells (Auto) Urine Bacteria (Auto) Stl C. diff Tox B Gene Blood Type Antibody Screen 04/08/19 04/08/19 04/08/19 00:21 04:13 06:05 WBC RBC Hgb Hct MCV MCH MCHC RDW Std Deviation RDW Coeff of Abi Plt Count MPV Immature Gran % (Auto) Neut % (Auto) Lymph % (Auto) Wayne % (Auto) Eos % (Auto) Baso % (Auto) Immature Gran # (Auto) Neut # (Auto) Lymph # (Auto) Wayne # (Auto) Eos # (Auto) Baso # (Auto) PT INR Sodium Potassium Chloride Carbon Dioxide Anion Gap BUN Creatinine Est Cr Clr Drug Dosing Est GFR ( Amer) Est GFR (Non-Af Amer) BUN/Creatinine Ratio Glucose POC Glucose 164 H Lactate Calcium Phosphorus Magnesium Total Bilirubin Direct Bilirubin AST ALT Alkaline Phosphatase Total Protein Albumin Globulin Albumin/Globulin Ratio Lipase 775 H Urine Color Urine Appearance Urine pH Ur Specific Stoddard Urine Protein Urine Glucose (UA) Urine Ketones Urine Blood Urine Nitrite Urine Bilirubin Urine Urobilinogen Ur Leukocyte Esterase Urine WBC (Auto) Urine RBC (Auto) U Hyaline Cast (Auto) U Epithel Cells (Auto) Urine Bacteria (Auto) Stl C. diff Tox B Gene Negative Cdiff Gene Blood Type Antibody Screen 04/08/19 04/08/19 04/08/19 08:28 08:28 09:11 WBC RBC Hgb 8.5 L Hct 25.7 L MCV MCH MCHC RDW Std Deviation RDW Coeff of Abi Plt Count MPV Immature Gran % (Auto) Neut % (Auto) Lymph % (Auto) Wayne % (Auto) Eos % (Auto) Baso % (Auto) Immature Gran # (Auto) Neut # (Auto) Lymph # (Auto) Wayne # (Auto) Eos # (Auto) Baso # (Auto) PT INR Sodium 141 Potassium 4.4 Chloride 110 H Carbon Dioxide 19 L Anion Gap 12.0 H BUN 73 H Creatinine 1.27 Est Cr Clr Drug Dosing 60.6 Est GFR ( Amer) 64.1 Est GFR (Non-Af Amer) 55.3 BUN/Creatinine Ratio 57.6 H Glucose 203 H POC Glucose 239 H Lactate Calcium 8.5 Phosphorus Magnesium Total Bilirubin 1.3 H Direct Bilirubin 0.9 H AST 42 H ALT 34 Alkaline Phosphatase 180 H Total Protein 6.5 Albumin 1.9 L Globulin Albumin/Globulin Ratio Lipase Urine Color Urine Appearance Urine pH Ur Specific Stoddard Urine Protein Urine Glucose (UA) Urine Ketones Urine Blood Urine Nitrite Urine Bilirubin Urine Urobilinogen Ur Leukocyte Esterase Urine WBC (Auto) Urine RBC (Auto) U Hyaline Cast (Auto) U Epithel Cells (Auto) Urine Bacteria (Auto) Stl C. diff Tox B Gene Blood Type Antibody Screen Medications Administered Current Inpatient Medications Acetaminophen (Tylenol) 500 mg PO Q4 PRN PRN Reason: Fever Or Pain Stop: 05/05/19 23:15 Last Admin: 04/07/19 22:07 Dose: 500 mg Documented by: Aspirin (Ecotrin Ectab) 81 mg PO DAILY [facility] Stop: 05/06/19 08:59 Last Admin: 04/07/19 09:37 Dose: 81 mg Documented by: Atorvastatin Calcium (Lipitor) 40 mg PO HS [facility] Stop: 05/06/19 20:59 Last Admin: 04/07/19 19:51 Dose: 40 mg Documented by: Buspirone HCl (Buspar) 2.5 mg PO TID PRN PRN Reason: Anxiety Stop: 05/06/19 01:42 Last Admin: 04/07/19 09:35 Dose: 2.5 mg Documented by: Dextrose (Dextrose 50%) 25 - 50 ml IV UD PRN; Protocol PRN Reason: Hypoglycemia Protocol Stop: 05/05/19 23:15 Docusate Sodium (Colace) 100 mg PO BID PRN PRN Reason: Constipation Stop: 05/05/19 23:15 Last Admin: 04/06/19 08:30 Dose: 100 mg Documented by: Gabapentin (Neurontin) 100 mg PO TID [facility] Stop: 05/06/19 08:59 Last Admin: 04/08/19 07:50 Dose: 100 mg Documented by: Glucagon (Glucagen) 1 mg SQ UD PRN; Protocol PRN Reason: Hypoglycemia Protocol Stop: 05/05/19 23:15 Glucose (Glucose 40%) 15 - 30 gm PO UD PRN; Protocol PRN Reason: Hypoglycemia Protocol Stop: 05/05/19 23:15 Glucose (Dex4 Glucose) 4 - 8 tabs PO UD PRN; Protocol PRN Reason: Hypoglycemia Protocol Stop: 05/05/19 23:15 Sodium Phosphate 39 mmol/ (Sodium Chloride) 1,013 mls @ 100 mls/hr IV ONE ONE Stop: 04/08/19 11:22 Last Admin: 04/08/19 01:33 Dose: 100 mls/hr Documented by: Ertapenem 1,000 mg/ Sodium (Chloride) 60 mls @ 100 mls/hr IV Q24H [facility] Stop: 04/18/19 10:59 Pantoprazole Sodium 40 mg/ (Dextrose) 100 mls @ 20 mls/hr IV Q5H [facility] Stop: 05/08/19 09:29 Last Admin: 04/08/19 09:48 Dose: 20 mls/hr Documented by: Lorazepam (Ativan) 0.5 mg in 1 mls @ 1 mls/min IV ONE PRN PRN Reason: Anxiety Stop: 05/08/19 09:05 Insulin Aspart (Novolog Flexpen) 0 units SC Q6 [facility] Stop: 05/08/19 11:59 Insulin Glargine (Lantus Solostar Pen) 20 units SC BID [facility] Stop: 05/07/19 08:59 Last Admin: 04/08/19 09:04 Dose: 20 units Documented by: Magnesium Oxide (Mag-Ox) 400 mg PO QAM [facility] Stop: 05/06/19 08:59 Last Admin: 04/07/19 09:33 Dose: Not Given Documented by: Metoprolol Tartrate (Lopressor) 12.5 mg PO BID [facility] Stop: 05/08/19 06:14 Last Admin: 04/08/19 06:24 Dose: 12.5 mg Documented by: Miscellaneous (Carbohydrates For Hypoglycemia) 15 - 30 gm PO UD PRN PRN Reason: Hypoglycemia Treatment Stop: 05/05/19 23:15 Miscellaneous Information (Consult Glycemic Management Pharmacy) 1 ea N/A UD PRN; Protocol PRN Reason: Consult Stop: 05/05/19 23:47 Polyethylene Glycol (Miralax Powder Packet) 17 gm PO DAILY PRN PRN Reason: Constipation Stop: 05/05/19 23:15 Sennosides (Senokot) 8.6 mg PO DAILY PRN PRN Reason: Constipation Stop: 05/05/19 23:15 Last Admin: 04/06/19 08:30 Dose: 8.6 mg Documented by: Warfarin Sodium (Coumadin) 5 mg PO DAILY@1600 [facility] Stop: 05/06/19 15:59 Last Admin: 04/06/19 14:38 Dose: Not Given Documented by: (1) Sepsis Sepsis type: sepsis due to unspecified organism Qualified Code(s): A41.9 - Sepsis, unspecified organism (2) Pneumonia Laterality: left Lung location: lower lobe of lung Pneumonia type: due to unspecified organism Qualified Code(s): J18.1 - Lobar pneumonia, unspecified organism
[2019-04-08] MEDS: ERTAPENEM SODIUM 1,000 MG in SODIUM CHLORIDE 0.9% 50 ML IV SCH (10:32)
[2019-04-08] MEDS ORDERED: INSULIN GLARGINE SOLOSTAR 100 UNITS/ML 3 ML PEN SC STA (11:15)
[2019-04-08] MEDS ORDERED: INSULIN ASPART 100 UNITS/ML 3 ML PEN SC SCH ×2 (12:00→16:00)
[2019-04-08 12:21] LABS: Hemoglobin 8.7 g/dL (14.0-18.0)
[2019-04-08 12:30] LABS: Prothrombin Time 19.6 Seconds (9.0-12.0)
--- NOTE | 2019-04-08 12:34 | Gastrointestinal Consultation ---
Date of Consultation April 08, 2019 Assessment & Plan (1) Anemia: (2) Melena: (3) Cholecystitis: Pt is a 74 y/o male admitted for sepsis, pneumonia, L sided empyema (thoracic fluid grew Ecoli ESBL); seen for anemia, melena. CT scan also concerning for possible cholecystitis w gallstones and possibly mild pancreatitis ? cirrhotic appearing liver. INR 3 this AM, Coumadin, ASA held and given Vit K - Awaiting repeat INR this afternoon - Start PPI bolus and gtt - Obtain MRCP to r/o biliary obstruction - Monitor H/H and transfuse prn - Possible plans for EGD if INR corrected <1.5 and possible ERCP (if MRCP + for choledocholithiasis) in OR tomorrow by Dr. Madera. Supervising Physician Co-Signing Physician Notes Attending attestation I have seen, examined this patient, and agree with the findings and above by our mid-level provider Ms.Leonie Dorsey, with the following additions -Patient with multiple issues during this hospitalization including empyema with E. coli, bacteremia with staph, in the setting of chronic heart disease including ischemic cardiomyopathy. Now with intermittent black stools over the last 2 to 3 days with a mildly declining hemoglobin. LFTs are mildly elevated, MRCP did not show any evidence of dilatation of the common bile duct, however, it was not of quality that would exclude common bile duct stones. CT scan and imaging findings concerning for cholecystitis Also coagulopathic due to his recent Coumadin. Fortunately no hemodynamically unstable evidence of GI bleeding. Recommendations -Continue IV PPI -Hemoglobin is been stable throughout last night and today, however if hemoglobin drops below 8 would transfuse carefully given his heart disease but for goal to be above 8. -Continue to correct his coagulopathy -Discussed with Dr. Burr but a staged procedure under one anesthesia seems appropriate given his tenuous state tomorrow with my colleague Dr. Madera. History of Present Illness Reason for Consultation: UGI bleed Requesting Physician: Dr. Alli Samuel Attending Physician: Dr. Daniel Reyes History of Present Illness Pt is a 74 y/o male w complicated medical hx including Afib on Coumadin, CAD, hx of CVA, s/p TAVR, ATN currently admitted for sepsis, pneumonia and L sided empyema s/p thoracentesis on 7/8, fluid grew Ecoli ESBL. Currently getting covered w Ertapenem IV. GI consulted as it's noted pt's been having melanotic stools per RN in small amts about every 10 min. Stool occult test positive on 04/06/10. His INR was 3, given Vit K 10mg IV this AM, Coumadin, ASA had been held x [address]t [address] Not[address] on [address] chest/abd/pelvis findings of possible cirrhotic appearing liver w trace perisplenic ascites, gallbladder wall thickening w gallstones and also mild inflammatory changes near pancreas head. LFTs and Lipase mildly elevated. Pt denies hx of EGD evals. Reports hx of colonoscopy but denies any hx of malignancies. He admitted to be taking Advil at least 4 tabs a day. Denies any surgery in abd area Allergies Allergy/AdvReac Type Severity Reaction Status Date / Time lisinopril AdvReac Intermediate COUGH Verified 04/05/19 21:24 Home Medications Home Medications Medication Instructions Recorded Confirmed Type acetaminophen [Tylenol Extra 500 mg PO Q4 PRN 04/05/19 04/05/19 History Strength] aspirin [Aspir-81] 81 mg PO DAILY 04/05/19 04/05/19 History atorvastatin 40 mg PO HS 04/05/19 04/05/19 History buspirone 2.5 mg PO BID 04/05/19 04/05/19 History docusate sodium 100 mg PO BID PRN 04/05/19 04/05/19 History gabapentin 600 mg PO TID 04/05/19 04/05/19 History glipizide 5 mg PO DAILY 04/05/19 04/05/19 History insulin glargine [Lantus U-100 0 unit SUBCUT DAILY 04/05/19 04/05/19 History Insulin] losartan 12.5 mg PO DAILY 04/05/19 04/05/19 History magnesium oxide 400 mg PO QAM 04/05/19 04/05/19 History metoprolol succinate 25 mg PO DAILY 04/05/19 04/05/19 History nitroglycerin [Nitrostat] 0.4 mg SUBLINGUAL DIRECTED PRN 04/05/19 04/05/19 History polyethylene glycol 3350 [Miralax] 17 g PO DAILY PRN 04/05/19 04/05/19 History sennosides 8.6 mg PO DAILY PRN 04/05/19 04/05/19 History spironolactone 25 mg PO DAILY 04/05/19 04/05/19 History tamsulosin [Flomax] 0.4 mg PO HS 04/05/19 04/05/19 History torsemide 20 mg PO QPM 04/05/19 04/05/19 History torsemide 40 mg PO QAM 04/05/19 04/05/19 History warfarin 5 mg PO DAILY 04/05/19 04/05/19 History zolpidem 5 mg PO HS PRN 04/05/19 04/05/19 History Patient History Medical History Cholecystitis, chronic Sepsis (Acute 08/24/14) Atrial fibrillation (Chronic) Coronary artery disease (Chronic) Dyslipidemia (Chronic) Diabetes mellitus, type II (Chronic) Hypertension (Chronic) Stroke (Chronic) Difficult airway (Chronic) Diabetic neuropathy (Chronic) History of renal calculi (Chronic) Aortic stenosis (Chronic) "severe per echo 06/17/14" CHF (congestive heart failure) (Chronic) "LVEF 30-35% by echo 06/17/14" Ulcer of toe due to diabetes mellitus (Acute) Respiratory failure, acute Surgical History Status post coronary artery bypass grafting (Chronic) Status post cataract extraction (Chronic) Family History Unknown Family history non-contributory Social History Preferred Language: German Communication Ability: Effective Beliefs That Will Affect Care: None Current Living Situation: Spouse Feels Safe at Home: Yes Safety Concerns: Feels Safe At This Time Smoking Status: Never smoker Hx Alcohol Use: Yes Alcohol type: beer Hx Substance Use: Yes substance use type: marijuana Review of Systems Review of Systems: All systems reviewed & are unremarkable except as noted in HPI & below Physical Exam Constitutional: + frail appearing, well groomed, cooperative and comfortable Eyes: PERRL, conjunctivae normal, anicteric sclerae ENMT: external ear and nose normal, oropharynx normal Respiratory: no respiratory distress and does not use accessory muscles Auscultation: + diminished lung sounds (Diminished L side ) Cardiovascular: RRR, no murmur, no edema Gastrointestinal (Abdomen): normal bowel sounds, soft, nontender, no hepatosplenomegaly Skin: no rashes, warm and dry no jaundice Neurologic: Motor/Sensory: no asterixis Psychiatric: A+Ox3, euthymic affect Lymphatic: + lymphedema (trace bilateral LE edema ) Results & Data Vital Signs (Past 12 Hours) Vital Signs Temp Pulse Pulse Resp BP BP Pulse Ox 04/08/19 12:30 116 H 25 H 143/70 H 96 04/08/19 12:12 116 H 28 H 128/88 94 04/08/19 12:10 117 H 16 94 04/08/19 12:00 37.6 C H 116 H 125 H 26 H 67/50 L 128/88 96 04/08/19 11:39 113 H 25 H 109/57 L 97 04/08/19 11:31 112 H 23 97 04/08/19 11:01 114 H 13 121/73 97 04/08/19 11:00 110 H 20 99 04/08/19 10:31 115 H 17 136/54 L 97 04/08/19 10:01 112 H 18 160/67 H 98 04/08/19 10:00 112 H 14 96 04/08/19 09:31 114 H 25 H 99 04/08/19 09:16 113 H 22 106/60 98 04/08/19 09:00 100 04/08/19 08:01 111 H 19 89/77 L 100 04/08/19 08:00 37.8 C H 109 H 122 H 17 126/82 100 04/08/19 07:30 115 H 12 141/111 H 98 04/08/19 07:00 122 H 20 126/82 96 04/08/19 06:31 120 H 29 H 116/57 L 94 04/08/19 06:01 120 H 27 H 115/72 94 04/08/19 05:29 117 H 18 122/65 95 04/08/19 04:07 36.7 C 120 H 21 120/69 95 04/08/19 03:01 119 H 25 H 104/52 L 95 04/08/19 02:00 113 H 22 111/69 96 04/08/19 01:03 108 H 24 123/71 96 04/08/19 01:01 37.7 C H 115 H 22 123/71 93
[2019-04-08] MEDS ORDERED: MODERATE STRESS LEVEL ONE (13:41)
[2019-04-08] MEDS ORDERED: NovoLIN-R BOLUS FROM BAG IV ONE (14:00)
--- NOTE | 2019-04-08 14:04 | Pharmacy Report ---
Pharmacy Glycemic Short Note 2 - Date of Service April 08, 2019 - Glycemic Short BSG Results (Last 24 hours): 04/07/19 04/07/19 04/07/19 16:37 21:02 23:58 Glucose POC Glucose 259 H 292 H 238 H 04/08/19 04/08/19 04/08/19 00:21 04:13 08:28 Glucose 199 H 203 H POC Glucose 164 H 04/08/19 04/08/19 04/08/19 09:11 10:59 12:52 Glucose POC Glucose 239 H 256 H 255 H OUTPATIENT ANTIDIABETIC REGIMEN: * glipizide 5mg QD * Lantus 75-100 units QD-per patient, dose varies based on BSG * HbA1c: 7.9% ASSESSMENT: 04/08: * Patient hyperglycemic last evening and today despite doubling lantus dose last evening. Patient was also made NPO this morning due to GI bleed and placed on a continuous protonix drip (providing 20 mL/hr of dextrose). Discussed plan with provider and it was decided to give 20 units of lantus this morning (NPO status). In addition, AM novolog was not given. Thus we checked lunch BSG early (~1100) and given BSG of 256, an extra 20 units of lantus was given with novolog. BSG was rechecked ~ 1.5 hours later and it remained the same @ 255. I discussed with Dr. Doherty, and it was decided to resume an insulin drip at this time. I will order 20 units of lantus this evening in addition to the drip to help assist in eventual drip transition. However, given patient's labile insulin needs, NPO status, potential for procedures tomorrow, and dextrose containing protonix drip, would recommend continuing infusion for the time being. 04/07 * Patient was successfully transitioned off of the drip yesterday. BSGs since have been much improved and vasopressor have come off. Lunch BSG slightly elevated but per nurse, this was post prandial, so will hold off on altering novolog scale. 04/06 * Patient admitted with septic shock requiring pressors, started on an insulin drip overnight. As the patient remains on pressors and insulin drip rates remains at 3.1 units/hr, will hold off on drip transition. The patient is ordered a diet, but PO intake has been minimal thus far. The norepinephrine drip remains on but at a low dose and is expected to be weaned off soon. I do anticipate transition may be feasible this evening or tomorrow morning once one insulin infusion rate decreases, blood sugars remain in range, and pressors come off. I will place a pending order to assess for possible drip transition once the following parameters are met: insulin infusion rate < 1.5 units/hr and BSG < 180 X 2. I have also ordered lantus to assist with eventual drip transition. Given the wide variability in patient's home dose and minimal PO intake, will use a weight based stress of 2 and 3 dosing for lantus to start. PLAN FOR INPATIENT GLYCEMIC CONTROL: * Hold outpatient oral diabetes medications * Start IV insulin infusion per moderate stress protocol * Goal Range 110 - 180 mg/dl * In the critical care setting, continuous IV insulin infusion has been shown to be the best method for achieving glycemic targets. * Basal insulin * Lantus 40 units SQ TOTAL this morning * Lantus 20 units SQ this evening * Bolus insulin * NovoLog per scale ACHS as per insulin infusion adjustment calculator
--- NOTE | 2019-04-08 14:10 | Magnetic Resonance Report ---
MRCP CLINICAL HISTORY: Acute cholecystitis. COMPARISON STUDY: Abdominal CT dated 04/08/2019. TECHNIQUE: Abdominal MRCP is performed utilizing various T2 sequences in the axial and coronal planes . 3-D reformats were attempted. IV contrast was not administered for this examination. The examinatio n is significantly compromised by motion artifact. Gated images could not be acquired. FINDINGS: The gallbladder is mildly distended and filled with gallstones. The gallbladder wall is thickened and there is pericholecystic stranding. The appearance is consistent with acute cholecystitis. There is no intrahepatic biliary ductal dilatation. The extrahepatic biliary tree is not well-visualized. The common bile duct is normal in caliber and measures up to 4 mm. There is no definitive evidence of cho ledocholithiasis but this is not well assessed. The pancreatic duct is normal in caliber. The liver, spleen, adrenal glands, and kidneys are grossly unremarkable. There is trace perisplenic a scites. The abdominal aorta is normal in caliber. No bowel obstruction is seen. The heart is enlarged . Midline sternotomy wires are noted. There are left larger than right pleural effusions with left ba silar consolidation. No destructive bony process is identified. IMPRESSION: 1. Severely motion compromised examination. This degrades diagnostic utility. 2. Cholelithiasis with evidence of acute cholecystitis. 3. There is no intra or extrahepatic biliary ductal dilatation. There is no clear evidence of choledo cholithiasis although this is not well evaluated and would be impossible to exclude. 4. Left larger than right pleural effusions with left basilar consolidation. 5. There is trace perisplenic ascites. Electronically signed by: Kolton Rahman M.D. 04/08/2019 2:08 PM
[2019-04-08] MEDS: INSULIN REGULAR 250 UNITS in SODIUM CHLORIDE 0.9% 247.5 ML IV SCH (14:12)
--- NOTE | 2019-04-08 14:48 | Hospitalist Progress Note ---
Date of Service April 08, 2019 Assessment & Plan (1) GI bleeding: Has been having GI bleed with melena and bloody stool at times GI consulted On IV PPI and monitor hemoglobin Possible EGD down the line (2) Cholecystitis: CT of the abdomen did show cholelithiasis and acute cholecystitis MRI scan supported cholecystitis Appreciate surgery input and recommendation Not for acute surgery at this time Continue with conservative management (3) Septic shock: Septic shock secondary to community acquired pneumonia. Continues current treatment in the ICU. Has been on intravenous Zosyn and doxy has been stopped stopped. Repeat CT chest with persistent empyema. Thoracic surgery consulted for definitive treatment down the line (4) Pneumonia: Chronic respiratory failure with 2 L nasal cannula. Continue treatment as above for pneumonia. Likely has left pleural effusion with empyema Thoracic surgery has been consulted-thoracotomy and tube placement has been on hold now (5) S/P TAVR (transcatheter aortic valve replacement): No acute issues Appreciate cardiology and input and recommendation (6) Diabetes mellitus, type II: off Insulin drip and is being continued on basal/bolus therapy, management per ICU. (7) Coronary artery disease: Medical management with aspirin, Lipitor. Losartan on hold in setting of MARISA. Toprol-XL on hold. Patient has EF 35% and is also on spironolactone which is not being given at this time. Cardiology following. (8) Ischemic cardiomyopathy: As above. Patient is declining defibrillator placement (9) Atrial fibrillation: Continue Coumadin, Toprol on hold. Hemodynamic management per ICU. (10) Acute kidney injury: Likely secondary to septic shock. Continue IV fluids, avoid nephrotoxic substances. Hold losartan. (11) DVT (deep venous thrombosis): Therapeutic on Coumadin Full code Disposition-continue ICU management Ronit Stein DO [facility] Hospitalist Subjective 04/08 The patient was seen and examined in ICU Patient is a 74-year-old male with complex medical history with history of CHF with EF 25 to 30%, chronic atrial fibrillation on Coumadin, diabetes mellitus on insulin therapy, coronary artery disease S/P CABG, history of aortic valve stenosis S/P TAVR, CVA, ischemic cardiomyopathy, spinal stenosis, dyslipidemia, CKD III, carotid artery stenosis, hypertension and other problems presents with history of worsening shortness of breath, cough, generalized weakness, decreased appetite, fever and chills, increased leg swelling. Patient states he has chronic cough which has been gradually worsening since last 2 days prior to admission. Complains to have abdominal discomfort and generally unwell No significant pain and/or distress at rest Review of Systems Review of Systems: All systems reviewed and are unremarkable except as noted below Constitutional: + weakness and + anorexia Respiratory: no cough and no dyspnea Cardiovascular: no chest pain Gastrointestinal: + bloating and + melena Physical Exam Physical Exam: Lying in bed with mild distress secondary to abdominal discomfort Constitutional: well developed, + ill appearing, + frail appearing, well groomed, cooperative and comfortable Eyes: PERRL, conjunctivae normal, anicteric sclerae ENMT: external ear and nose normal, oropharynx normal Neck: trachea midline, no thyromegaly Respiratory: normal respiratory effort; no respiratory distress and does not use accessory muscles Auscultation: + diminished lung sounds (Diminished L side ) Cardiovascular: RRR, no murmur, no edema Gastrointestinal (Abdomen): Inspection/Auscultation: + abdomen distended Percussion/Palpation: + abdomen tender (Left-sided tenderness) and abdomen soft; no guarding Musculoskeletal: No acute arthritis in any of the joints Skin: no rashes, warm and dry no jaundice Neurologic: Motor/Sensory: no asterixis Psychiatric: A+Ox3, euthymic affect Lymphatic: no cervical or axillary lymphadenopathy Results & Data Vital Signs (Past 12 Hours) Vital Signs Temp Pulse Pulse Resp BP BP Pulse Ox 04/08/19 12:30 116 H 25 H 143/70 H 96 04/08/19 12:12 116 H 28 H 128/88 94 04/08/19 12:10 117 H 16 94 04/08/19 12:00 37.6 C H 116 H 125 H 26 H 67/50 L 128/88 96 04/08/19 11:39 113 H 25 H 109/57 L 97 04/08/19 11:31 112 H 23 97 04/08/19 11:01 114 H 13 121/73 97 04/08/19 11:00 110 H 20 99 04/08/19 10:31 115 H 17 136/54 L 97 04/08/19 10:01 112 H 18 160/67 H 98 04/08/19 10:00 112 H 14 96 04/08/19 09:31 114 H 25 H 99 04/08/19 09:16 113 H 22 106/60 98 07/10/19 09:00 100 04/08/19 08:01 111 H 19 89/77 L 100 04/08/19 08:00 37.8 C H 109 H 122 H 17 126/82 100 04/08/19 07:30 115 H 12 141/111 H 98 04/08/19 07:00 122 H 20 126/82 96 04/08/19 06:31 120 H 29 H 116/57 L 94 04/08/19 06:01 120 H 27 H 115/72 94 04/08/19 05:29 117 H 18 122/65 95 04/08/19 04:07 36.7 C 120 H 21 120/69 95 04/08/19 03:01 119 H 25 H 104/52 L 95 Laboratory Results Short CBC 04/07/19 04/07/19 04/08/19 Range/Units 15:17 21:01 00:21 WBC 13.97 H (4.8-10.8) K/uL Hgb 10.4 L 10.0 L 8.9 L (14.0-18.0) g/dL Hct 31.5 L 30.3 L 27.4 L (42-52) % Plt Count 173 (130-400) K/uL 04/08/19 04/08/19 Range/Units 08:28 12:07 WBC (4.8-10.8) K/uL Hgb 8.5 L 8.7 L (14.0-18.0) g/dL Hct 25.7 L 26.0 L (42-52) % Plt Count (130-400) K/uL BMP 04/08/19 04/08/19 00:21 08:28 Sodium 140 D 141 Potassium 4.4 4.4 Chloride 109 H 110 H Carbon Dioxide 22 19 L BUN 65 H 73 H Creatinine 1.36 1.27 Glucose 199 H 203 H Calcium 8.1 L 8.5 Liver Function 04/08/19 04/08/19 Range/Units 00:21 08:28 Total Bilirubin 1.1 H 1.3 H (0.2-1) mg/dl Direct Bilirubin 0.9 H (0-0.2) mg/dl AST 39 H 42 H (15-37) U/L ALT 34 34 (12-78) U/L Alkaline Phosphatase 193 H 180 H (45-117) U/L Albumin 1.8 L 1.9 L (3.4-5.0) gm/dl Medications Administered Current Inpatient Medications Acetaminophen (Tylenol) 500 mg PO Q4 PRN PRN Reason: Fever Or Pain Stop: 05/05/19 23:15 Last Admin: 04/07/19 22:07 Dose: 500 mg Documented by: Aspirin (Ecotrin Ectab) 81 mg PO DAILY [facility] Stop: 05/06/19 08:59 Last Admin: 04/07/19 09:37 Dose: 81 mg Documented by: Atorvastatin Calcium (Lipitor) 40 mg PO HS [facility]AHRA Stop: 05/06/19 20:59 Last Admin: 04/07/19 19:51 Dose: 40 mg Documented by: Buspirone HCl (Buspar) 2.5 mg PO TID PRN PRN Reason: Anxiety Stop: 05/06/19 01:42 Last Admin: 04/07/19 09:35 Dose: 2.5 mg Documented by: Dextrose (Dextrose 50%) 25 - 50 ml IV UD PRN; Protocol PRN Reason: Hypoglycemia Protocol Stop: 05/05/19 23:15 Docusate Sodium (Colace) 100 mg PO BID PRN PRN Reason: Constipation Stop: 05/05/19 23:15 Last Admin: 04/06/19 08:30 Dose: 100 mg Documented by: Gabapentin (Neurontin) 100 mg PO TID [facility]RA Stop: 05/06/19 08:59 Last Admin: 04/08/19 14:14 Dose: 100 mg Documented by: Glucagon (Glucagen) 1 mg SQ UD PRN; Protocol PRN Reason: Hypoglycemia Protocol Stop: 05/05/19 23:15 Glucose (Glucose 40%) 15 - 30 gm PO UD PRN; Protocol PRN Reason: Hypoglycemia Protocol Stop: 05/05/19 23:15 Glucose (Dex4 Glucose) 4 - 8 tabs PO UD PRN; Protocol PRN Reason: Hypoglycemia Protocol Stop: 05/05/19 23:15 Ertapenem 1,000 mg/ Sodium (Chloride) 60 mls @ 100 mls/hr IV Q24H [facility] Stop: 04/18/19 10:59 Last Infusion: 04/08/19 11:09 Dose: Infused Documented by: Pantoprazole Sodium 40 mg/ (Dextrose) 100 mls @ 20 mls/hr IV Q5H [facility] Stop: 05/08/19 09:29 Last Admin: 04/08/19 14:55 Dose: 20 mls/hr Documented by: Lorazepam (Ativan) 0.5 mg in 1 mls @ 1 mls/min IV ONE PRN PRN Reason: Anxiety Stop: 05/08/19 09:05 Insulin Human Regular 250 (units/ Sodium Chloride) 250 mls @ 2.5 mls/hr IV .Q24H [facility]; Protocol Stop: 05/08/19 13:59 Last Admin: 04/08/19 14:12 Dose: 2.5 units/hr, 2.5 mls/hr Documented by: Insulin Aspart (Novolog Flexpen) 0 units SC Q4 [facility] Stop: 05/08/19 15:59 Insulin Aspart (Novolog Flexpen) 0 units SC ACHS [facility] Stop: 05/08/19 16:29 Insulin Glargine (Lantus Solostar Pen) 20 units SC BID [facility] Stop: 05/07/19 08:59 Last Admin: 04/08/19 09:04 Dose: 20 units Documented by: Magnesium Oxide (Mag-Ox) 400 mg PO QAM [facility] Stop: 05/06/19 08:59 Last Admin: 04/07/19 09:33 Dose: Not Given Documented by: Metoprolol Tartrate (Lopressor) 12.5 mg PO BID [facility] Stop: 05/08/19 06:14 Last Admin: 04/08/19 06:24 Dose: 12.5 mg Documented by: Miscellaneous (Carbohydrates For Hypoglycemia) 15 - 30 gm PO UD PRN PRN Reason: Hypoglycemia Treatment Stop: 05/05/19 23:15 Miscellaneous Information (Consult Glycemic Management Pharmacy) 1 ea N/A UD PRN; Protocol PRN Reason: Consult Stop: 05/05/19 23:47 Polyethylene Glycol (Miralax Powder Packet) 17 gm PO DAILY PRN PRN Reason: Constipation Stop: 05/05/19 23:15 Sennosides (Senokot) 8.6 mg PO DAILY PRN PRN Reason: Constipation Stop: 05/05/19 23:15 Last Admin: 04/06/19 08:30 Dose: 8.6 mg Documented by: Warfarin Sodium (Coumadin) 5 mg PO DAILY@1600 [facility] Stop: 05/06/19 15:59 Last Admin: 04/06/19 14:38 Dose: Not Given Documented by:
--- NOTE | 2019-04-08 16:54 | Progress Note ---
DATE: 04/08/2019 Mr. Bustillo was seen today on 04/08/2019. I tentatively scheduled him for a decortication; however, the patient has significant melena. We are going to hold off on this decortication until he is worked up from a GI standpoint. We will put him on later in the week hopefully. I discussed this with the patient and his .
[2019-04-08 18:09] LABS: Hematocrit (blood only) 26.8 % (42-52); Hemoglobin 8.9 g/dL (14.0-18.0)
[2019-04-08 18:25] LABS: INR 1.5 (0.9-1.1); Prothrombin Time 15.1 Seconds (9.0-12.0)
[2019-04-08] MEDS: ATORVASTATIN 40 MG TAB PO SCH (20:44)
[2019-04-09] MEDS: PANTOprazole 40 MG in DEXTROSE 5% 100 ML IV SCH ×4 (01:41→15:36)
[2019-04-09 07:20] LABS: Basophils # (auto) 0.01 K/uL (0-0.2); Basophils % (auto) 0.1 %; Eosinophils % (auto) 0.6 %; Hematocrit (blood only) 24.2 % (42-52); Immature Granulocytes # (auto) 0.08 K/uL (0.00-0.02); Immature Granulocytes % (auto) 0.5 %; Lymphocytes # (auto) 0.86 K/uL (1.2-3.4); Lymphocytes % (auto) 5.3 %; Mean Platelet Volume 10.3 fL (7.4-10.4); Monocytes # (auto) 0.89 K/uL (0.11-0.59); Monocytes % (auto) 5.4 %; Neutrophils # (auto) 14.42 K/uL (1.4-6.5); Neutrophils % (auto) 88.1 %; Nucleated RBC # (auto) 0.04 K/uL (0-0); Nucleated RBC % (auto) 0.2 %; Platelet Count 209 K/uL (130-400); RDW Coefficient of Variation 17.3 % (11.5-14.5); RDW Standard Deviation 51.9 fL (36.4-46.3); Red Blood Count 2.95 M/uL (4.7-6.1); White Blood Count 16.36 K/uL (4.8-10.8)
[2019-04-09 07:26] LABS: INR 1.4 (0.9-1.1); Prothrombin Time 14.1 Seconds (9.0-12.0)
[2019-04-09 07:33] LABS: Albumin Level 1.8 gm/dl (3.4-5.0); Calcium 8.3 mg/dl (8.5-10.1); Creatinine Clr Calc Pharmacy 75.4 ml/min; Est GFR (African American) 83.5; Est GFR (Non-African American) 72.1; Magnesium 2.6 mg/dl (1.8-2.4); Potassium 3.9 mmol/L (3.5-5.1)
--- NOTE | 2019-04-09 07:39 | Critical Care Progress Note ---
Date of Service April 09, 2019 Assessment & Plan (1) Admitted to intensive care unit: Reason Critically Ill: Severe sepsis 2/2 possible biliary source in addition to E. coli in empyema PLAN: NEURO CAM ICU: NEGATIVE -Anxiety- cont Buspirone 2.5 mg TID prn -Will consider clinical dx of depression moving forward. Pt has had flat affect here, although seems improved today somewhat -No other acute concerns or complaints. CARDIO -Septic shock-resolved -CHF- ECHO 04/06: LV systolic function moderately to severely reduced. EF 30-35%. -CAD- cont Aspirin, Atorvastatin. Hold Losartan given MARISA. 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 Converted to ertapenem -consult Thoracic Sx- Dr. Paula: Planning decortication at some point in future -sat well on NC. Will titrate to keep sat >92% RENAL/ -ARF- prerenal vs ATN. Cr improving. Good UOP -likely ATN 2/2 shock from sepsis -No other acute concerns or complaints GI -Reports of black tarry stool --> positive fecal occult -NPO -Cont IV PPI -EGD: No evidence of upper GI bleeding seen -ERCP: choledocholithiasis, extraction of stones and pus, stent placement and pancreatic duct. Will repeat in 6 wks to remove stent. Ultimately require ch olecystectomy. -No ASA/NSAID for one week, broad spectrum antibiotics for 2 wks -Transaminitis resolved ENDO -A1C 7.9 -Diabetic Neuropathy- cont Gabapentin 100 mg TID -ICU Hyperglycemia protocol. Insulin gtt started HEME -Anemia likely 2/2 marrow suppression from sepsis. No GI bleeding ID -Concern for evolving sepsis. Thoracic fluid grew Ecoli ESBL. Largely resolved, convert to ertapenem repeat blood cultures given continued febrile illness -cont trend fever curve. Afebile since trasition to ertapenem LINES: PIV x2, A-line DVT Prophylaxis: SCDs Full Code DISPO: ICU Supervising Physician Co-Signing Physician Notes Dr. Doherty was resident physician during care of patient. I separately evaluated patient for latif portions of the history and the exam. I was present during the critical portion of medical decision making, and I discussed the case with the resident. I generally agree with the findings and plan. Patient was discussed in multidisciplinary rounds, I discussed the case with gastroenterology service. Severe sepsis secondary to possible biliary source in addition to E. coli in empyema Increase beta-brandi to 25 mg twice daily today. Holding basal insulin and will provide coverage with insulin infusion secondary to frequent changes and blood glucose to provide smoother transition. Plan to EGD with possible ERCP today at approximately 1330 No fever since transition to ertapenem. Transaminitis has resolved. I have personally spent 35 minutes of critical care time in the direct management of this patient. This is a life/limb threatening event. This includes time spent evaluating patient, direct bedside care, chart review, placing orders, interpretation of diagnostic studies, discussion with consultants, patient, and/or family members regarding treatment decisions, as well as other required patient management activities. This time is exclusive of all separately billable procedures, and teaching time and separate from and in addition to any other critical care service time. Clinical update 1520: Patient seen after returning from operating room. Now has arterial line. Will institute Normosol at 125 mL's per hour. Discussed with gastroenterology stent left in GI tract and will ultimately require cholecystectomy. Subjective 74 y/o M found in bed this AM. Still complains of L sided abd pain. Denies N/V/F, chills. NPO Status. No other acute concerns or complaints. Ready for EGD/ERCP today. Review of Systems Review of Systems: All systems reviewed & are unremarkable except as noted in HPI & below Physical Exam Constitutional: WD/WN, vitals as above Eyes: PERRL, conjunctivae normal, anicteric sclerae ENMT: external ear and nose normal, oropharynx normal Respiratory: slightly diminished lung sounds >bases Cardiovascular: RRR, no murmur, no edema Gastrointestinal (Abdomen): L sided abd tenderness Skin: no rashes, warm and dry Psychiatric: A+Ox3, euthymic affect Results & Data Vital Signs (Past 12 Hours) Vital Signs Temp Pulse Resp BP Pulse Ox 04/09/19 06:00 122 H 22 106/72 99 04/09/19 05:00 37 C 111 H 20 88/60 L 98 04/09/19 04:00 113 H 20 100 04/09/19 03:00 116 H 22 101/42 L 98 04/09/19 02:00 114 H 23 111/54 L 99 04/09/19 01:00 110 H 22 93/52 L 100 04/09/19 00:00 37 C 107 H 22 92/61 L 99 04/08/19 23:00 107 H 20 111/67 97 04/08/19 22:00 107 H 22 111/67 100 04/08/19 21:00 37 C 116 H 20 103/82 100 04/08/19 20:00 37 C 104 H 22 122/81 99 Laboratory Results Laboratory Results - last 24 hr 04/08/19 04/08/19 04/08/19 17:59 17:59 19:25 WBC RBC Hgb 8.9 L Hct 26.8 L MCV MCH MCHC RDW Std Deviation RDW Coeff of Abi Plt Count MPV Immature Gran % (Auto) Neut % (Auto) Lymph % (Auto) [place] % (Auto) Eos % (Auto) Baso % (Auto) Immature Gran # (Auto) Neut # (Auto) Lymph # (Auto) Linn # (Auto) Eos # (Auto) Baso # (Auto) Absolute Nucleated RBC Nucleated RBC % (auto) PT 15.1 H INR 1.5 H Sodium Potassium Chloride Carbon Dioxide Anion Gap BUN Creatinine Est Cr Clr Drug Dosing Est GFR ( Amer) Est GFR (Non-Af Amer) BUN/Creatinine Ratio Glucose POC Glucose 127 H Calcium Phosphorus Magnesium Total Bilirubin AST ALT Alkaline Phosphatase Total Protein Albumin Globulin Albumin/Globulin Ratio 04/08/19 04/08/19 04/08/19 21:03 23:35 23:51 WBC RBC Hgb Hct MCV MCH MCHC RDW Std Deviation RDW Coeff of Abi Plt Count MPV Immature Gran % (Auto) Neut % (Auto) Lymph % (Auto) [place] % (Auto) Eos % (Auto) Baso % (Auto) Immature Gran # (Auto) Neut # (Auto) Lymph # (Auto) [place] # (Auto) Eos # (Auto) Baso # (Auto) Absolute Nucleated RBC Nucleated RBC % (auto) PT INR Sodium Potassium Chloride Carbon Dioxide Anion Gap BUN Creatinine Est Cr Clr Drug Dosing Est GFR ( Amer) Est GFR (Non-Af Amer) BUN/Creatinine Ratio Glucose POC Glucose 105 H 71 66 L* Calcium Phosphorus Magnesium Total Bilirubin AST ALT Alkaline Phosphatase Total Protein Albumin Globulin Albumin/Globulin Ratio 04/09/19 04/09/19 04/09/19 00:09 01:24 02:08 WBC RBC Hgb Hct MCV MCH MCHC RDW Std Deviation RDW Coeff of Abi Plt Count MPV Immature Gran % (Auto) Neut % (Auto) Lymph % (Auto) [place] % (Auto) Eos % (Auto) Baso % (Auto) Immature Gran # (Auto) Neut # (Auto) Lymph # (Auto) [place] # (Auto) Eos # (Auto) Baso # (Auto) Absolute Nucleated RBC Nucleated RBC % (auto) PT INR Sodium Potassium Chloride Carbon Dioxide Anion Gap BUN Creatinine Est Cr Clr Drug Dosing Est GFR ( Amer) Est GFR (Non-Af Amer) BUN/Creatinine Ratio Glucose POC Glucose 171 H 102 H 93 Calcium Phosphorus Magnesium Total Bilirubin AST ALT Alkaline Phosphatase Total Protein Albumin Globulin Albumin/Globulin Ratio 04/09/19 04/09/19 04/09/19 02:59 04:05 06:12 WBC RBC Hgb Hct MCV MCH MCHC RDW Std Deviation RDW Coeff of Abi Plt Count MPV Immature Gran % (Auto) Neut % (Auto) Lymph % (Auto) [place] % (Auto) Eos % (Auto) Baso % (Auto) Immature Gran # (Auto) Neut # (Auto) Lymph # (Auto) [place] # (Auto) Eos # (Auto) Baso # (Auto) Absolute Nucleated RBC Nucleated RBC % (auto) PT INR Sodium Potassium Chloride Carbon Dioxide Anion Gap BUN Creatinine Est Cr Clr Drug Dosing Est GFR ( Amer) Est GFR (Non-Af Amer) BUN/Creatinine Ratio Glucose POC Glucose 96 94 101 H Calcium Phosphorus Magnesium Total Bilirubin AST ALT Alkaline Phosphatase Total Protein Albumin Globulin Albumin/Globulin Ratio 04/09/19 04/09/19 04/09/19 07:04 07:04 07:04 WBC 16.36 H RBC 2.95 L Hgb 8.0 L Hct 24.2 L MCV 82.0 MCH 27.1 MCHC 33.1 RDW Std Deviation 51.9 H RDW Coeff of Abi 17.3 H Plt Count 209 MPV 10.3 Immature Gran % (Auto) 0.5 Neut % (Auto) 88.1 Lymph % (Auto) 5.3 Linn % (Auto) 5.4 Eos % (Auto) 0.6 Baso % (Auto) 0.1 Immature Gran # (Auto) 0.08 H Neut # (Auto) 14.42 H Lymph # (Auto) 0.86 L Linn # (Auto) 0.89 H Eos # (Auto) 0.10 Baso # (Auto) 0.01 Absolute Nucleated RBC 0.04 H Nucleated RBC % (auto) 0.2 PT 14.1 H INR 1.4 H Sodium 145 Potassium 3.9 Chloride 116 H Carbon Dioxide 22 Anion Gap 7.0 BUN 49 H Creatinine 1.02 Est Cr Clr Drug Dosing 75.4 Est GFR ( Amer) 83.5 Est GFR (Non-Af Amer) 72.1 BUN/Creatinine Ratio 48.0 H Glucose 95 POC Glucose Calcium 8.3 L Phosphorus 2.4 L Magnesium 2.6 H Total Bilirubin 1.7 H AST 30 ALT 25 Alkaline Phosphatase 150 H Total Protein 6.4 Albumin 1.8 L Globulin 4.6 H Albumin/Globulin Ratio 0.4 L 04/09/19 04/09/19 04/09/19 08:55 09:53 11:07 WBC RBC Hgb Hct MCV MCH MCHC RDW Std Deviation RDW Coeff of Abi Plt Count MPV Immature Gran % (Auto) Neut % (Auto) Lymph % (Auto) [place] % (Auto) Eos % (Auto) Baso % (Auto) Immature Gran # (Auto) Neut # (Auto) Lymph # (Auto) [place] # (Auto) Eos # (Auto) Baso # (Auto) Absolute Nucleated RBC Nucleated RBC % (auto) PT INR Sodium Potassium Chloride Carbon Dioxide Anion Gap BUN Creatinine Est Cr Clr Drug Dosing Est GFR ( Amer) Est GFR (Non-Af Amer) BUN/Creatinine Ratio Glucose POC Glucose 105 H 112 H 116 H Calcium Phosphorus Magnesium Total Bilirubin AST ALT Alkaline Phosphatase Total Protein Albumin Globulin Albumin/Globulin Ratio 04/09/19 04/09/19 04/09/19 11:58 12:47 14:32 WBC RBC Hgb Hct MCV MCH MCHC RDW Std Deviation RDW Coeff of Abi Plt Count MPV Immature Gran % (Auto) Neut % (Auto) Lymph % (Auto) [place] % (Auto) Eos % (Auto) Baso % (Auto) Immature Gran # (Auto) Neut # (Auto) Lymph # (Auto) [place] # (Auto) Eos # (Auto) Baso # (Auto) Absolute Nucleated RBC Nucleated RBC % (auto) PT INR Sodium Potassium Chloride Carbon Dioxide Anion Gap BUN Creatinine Est Cr Clr Drug Dosing Est GFR ( Amer) Est GFR (Non-Af Amer) BUN/Creatinine Ratio Glucose POC Glucose 118 H 109 H 121 H Calcium Phosphorus Magnesium Total Bilirubin AST ALT Alkaline Phosphatase Total Protein Albumin Globulin Albumin/Globulin Ratio 04/09/19 04/09/19 15:10 16:03 WBC RBC Hgb Hct MCV MCH MCHC RDW Std Deviation RDW Coeff of Abi Plt Count MPV Immature Gran % (Auto) Neut % (Auto) Lymph % (Auto) [place] % (Auto) Eos % (Auto) Baso % (Auto) Immature Gran # (Auto) Neut # (Auto) Lymph # (Auto) [place] # (Auto) Eos # (Auto) Baso # (Auto) Absolute Nucleated RBC Nucleated RBC % (auto) PT INR Sodium Potassium Chloride Carbon Dioxide Anion Gap BUN Creatinine Est Cr Clr Drug Dosing Est GFR ( Amer) Est GFR (Non-Af Amer) BUN/Creatinine Ratio Glucose POC Glucose 125 H 135 H Calcium Phosphorus Magnesium Total Bilirubin AST ALT Alkaline Phosphatase Total Protein Albumin Globulin Albumin/Globulin Ratio Medications Administered Current Inpatient Medications Acetaminophen (Tylenol) 500 mg PO Q4 PRN PRN Reason: Fever Or Pain Stop: 05/05/19 23:15 Last Admin: 04/07/19 22:07 Dose: 500 mg Documented by: Atorvastatin Calcium (Lipitor) 40 mg PO HS ZAHRA Stop: 05/06/19 20:59 Last Admin: 04/08/19 20:44 Dose: 40 mg Documented by: Buspirone HCl (Buspar) 2.5 mg PO TID PRN PRN Reason: Anxiety Stop: 05/06/19 01:42 Last Admin: 04/07/19 09:35 Dose: 2.5 mg Documented by: Dextrose (Dextrose 50%) 25 - 50 ml IV UD PRN; Protocol PRN Reason: Hypoglycemia Protocol Stop: 05/05/19 23:15 Last Admin: 04/08/19 23:57 Dose: 50 ml Documented by: Docusate Sodium (Colace) 100 mg PO BID PRN PRN Reason: Constipation Stop: 05/05/19 23:15 Last Admin: 04/06/19 08:30 Dose: 100 mg Documented by: Gabapentin (Neurontin) 100 mg PO TID ZAHRA Stop: 05/06/19 08:59 Last Admin: 04/09/19 15:55 Dose: Not Given Documented by: Glucagon (Glucagen) 1 mg SQ UD PRN; Protocol PRN Reason: Hypoglycemia Protocol Stop: 05/05/19 23:15 Glucose (Glucose 40%) 15 - 30 gm PO UD PRN; Protocol PRN Reason: Hypoglycemia Protocol Stop: 05/05/19 23:15 Glucose (Dex4 Glucose) 4 - 8 tabs PO UD PRN; Protocol PRN Reason: Hypoglycemia Protocol Stop: 05/05/19 23:15 Ertapenem 1,000 mg/ Sodium (Chloride) 60 mls @ 100 mls/hr IV Q24H REPLACED BY [facility] Stop: 04/18/19 10:59 Last Infusion: 04/09/19 12:25 Dose: Infused Documented by: Insulin Human Regular 250 (units/ Sodium Chloride) 250 mls @ 0.8 mls/hr IV .Q24H REPLACED BY [facility]; Protocol Stop: 05/08/19 13:59 Last Admin: 04/09/19 16:15 Dose: 0.8 units/hr, 0.8 mls/hr Documented by: Parenteral Electrolytes (Normosol-R) 1,000 mls @ 125 mls/hr IV .Q8H ZAHRA Stop: 05/09/19 15:29 Last Admin: 04/09/19 15:55 Dose: 125 mls/hr Documented by: Insulin Aspart (Novolog Flexpen) 0 units SC Q4 ZAHRA Stop: 05/08/19 15:59 Last Admin: 04/09/19 08:19 Dose: Not Given Documented by: Insulin Aspart (Novolog Flexpen) 0 units SC ACHS REPLACED BY [facility] Stop: 05/08/19 16:29 Last Admin: 04/09/19 15:56 Dose: Not Given Documented by: Insulin Glargine (Lantus Solostar Pen) 20 units SC BID REPLACED BY [facility] Stop: 05/07/19 08:59 Last Admin: 04/08/19 20:47 Dose: 20 units Documented by: Magnesium Oxide (Mag-Ox) 400 mg PO QAM REPLACED BY [facility] Stop: 05/06/19 08:59 Last Admin: 04/07/19 09:33 Dose: Not Given Documented by: Metoprolol Tartrate (Lopressor) 25 mg PO BID REPLACED BY [facility] Stop: 05/09/19 08:59 Last Admin: 04/09/19 08:44 Dose: 25 mg Documented by: Miscellaneous (Carbohydrates For Hypoglycemia) 15 - 30 gm PO UD PRN PRN Reason: Hypoglycemia Treatment Stop: 05/05/19 23:15 Miscellaneous Information (Consult Glycemic Management Pharmacy) 1 ea N/A UD PRN; Protocol PRN Reason: Consult Stop: 05/05/19 23:47 Pantoprazole [facility] ([facility]) [facility] [place] Stop: 05/10/19 08:59 Polyethylene Glycol (Miralax Powder Packet) 17 gm PO DAILY PRN PRN Reason: Constipation Stop: 05/05/19 23:15 Sennosides (Senokot) 8.6 mg PO DAILY PRN PRN Reason: Constipation Stop: 05/05/19 23:15 Last Admin: 04/06/19 08:30 Dose: 8.6 mg Documented by: PG Care Time/CCT Critical Care Time: Yes (35) Resident Activity Tracking Resident Involvement: Resident Care Provided Care Provided: Adult Hospital Medicine
[2019-04-09 07:40] LABS: Albumin Globulin Ratio 0.4 (0.9-2); Bilirubin,Total 1.7 mg/dl (0.2-1); Globulin 4.6 gm/dl (2.5-4.0); Phosphorus 2.4 mg/dl (2.5-4.9); Total Protein 6.4 gm/dl (6.4-8.2)
[2019-04-09 07:55] LABS: Mean Corpuscular Hgb Conc 33.1 g/dL (32-36)
[2019-04-09] MEDS: GABAPENTIN 100 MG CAP PO SCH ×3 (08:05→21:17)
[2019-04-09] MEDS: METOPROLOL TARTRATE 25 MG TAB PO SCH ×2 (08:44→21:19)
[2019-04-09] MEDS: INSULIN ASPART 100 UNITS/ML 3 ML PEN SC SCH ×3 (11:12→20:55)
[2019-04-09] MEDS: ERTAPENEM SODIUM 1,000 MG in SODIUM CHLORIDE 0.9% 50 ML IV SCH (11:14)
--- NOTE | 2019-04-09 11:21 | Gastroenterology Progress Note ---
Date of Service April 09, 2019 Assessment & Plan (1) Anemia: (2) Melena: (3) Cholecystitis: Pt is a 74 y/o male admitted for sepsis, pneumonia, L sided empyema (thoracic fluid grew Ecoli ESBL); seen for anemia, melena. He was taking Advil on daily basis for L sided chest pain. CT scan also concerning for possible cholecystitis w gallstones and possibly mild pancreatitis ? cirrhotic appearing liver. Though MRCP w/o signs of biliary dilation and choledocholithiasis cannot be excluded. He was on Coumadin, ASA for Afib and CAD. INR corrected down to 1.4, Coumadin, ASA had been held several days. Hgb stable around 8 and per RN report less amt and frequency of melena. - PPI gtt - NPO for EGD/EUS by Dr. Madera in OR today. If EUS showed signs of biliary stones, ERCP will be performed. - Monitor H/H and transfuse prn - Surgery consulted for possible cholecystitis, considering HIDA scan but no surgical plans at this time. Supervising Physician Co-Signing Physician Notes I saw and evaluated the patient. We are planning to do several examinations today the patient presented with melena and gram-negative jordin sepsis. We are planning to do upper endoscopy with endoscopic ultrasound and likely ERCP. I h ave discussed the risks and benefits of the examinations to bleeding, infection, perforation, pancreatitis, failed biliary cannulation and the need for follow-up examinations. Subjective Hgb stable around 8. Pt is still having melanotic stools but less frequent and in amt per RN. INR 1.4. He denies any n/v. Has some pain across mid abd section only when coughing Review of Systems Review of Systems: All systems reviewed & are unremarkable except as noted in HPI & below Physical Exam Constitutional: + frail appearing, well groomed, cooperative and comfortable Eyes: PERRL, conjunctivae normal, anicteric sclerae ENMT: external ear and nose normal, oropharynx normal Respiratory: no respiratory distress and does not use accessory muscles Auscultation: + diminished lung sounds (Diminished L side ) Cardiovascular: RRR, no murmur, no edema Gastrointestinal (Abdomen): Inspection/Auscultation: + hypoactive bowel sounds Percussion/Palpation: + abdomen tender (mid section) and abdomen soft Skin: no rashes, warm and dry no jaundice Neurologic: Motor/Sensory: no asterixis Psychiatric: A+Ox3, euthymic affect Lymphatic: + lymphedema (trace bilateral LE edema ) Results & Data Vital Signs (Past 12 Hours) Vital Signs Temp Pulse Pulse Resp BP Pulse Ox Pulse Ox 04/09/19 10:46 98 04/09/19 08:00 37.7 C H 112 H 107 H 20 112/76 98 98 04/09/19 06:00 122 H 22 106/72 99 04/09/19 05:00 37 C 111 H 20 88/60 L 98 04/09/19 04:00 113 H 20 100 04/09/19 03:00 116 H 22 101/42 L 98 04/09/19 02:00 114 H 23 111/54 L 99 04/09/19 01:00 110 H 22 93/52 L 100 04/09/19 00:00 37 C 107 H 22 92/61 L 99 Laboratory Results Laboratory Results - last 72 hr 04/05/19 04/06/19 04/06/19 20:47 10:45 11:00 WBC RBC Hgb Hct MCV MCH MCHC RDW Std Deviation RDW Coeff of Abi Plt Count MPV Immature Gran % (Auto) Neut % (Auto) Lymph % (Auto) [place] % (Auto) Eos % (Auto) Baso % (Auto) Immature Gran # (Auto) Neut # (Auto) Lymph # (Auto) [place] # (Auto) Eos # (Auto) Baso # (Auto) Absolute Nucleated RBC Nucleated RBC % (auto) PT INR Sodium Potassium Chloride Carbon Dioxide Anion Gap BUN Creatinine Est Cr Clr Drug Dosing Est GFR ( Amer) Est GFR (Non-Af Amer) BUN/Creatinine Ratio Glucose POC Glucose 111 H Lactate Calcium Phosphorus Magnesium Total Bilirubin Direct Bilirubin AST ALT Alkaline Phosphatase Troponin I 0.077 H* Total Protein Albumin Globulin Albumin/Globulin Ratio Lipase Urine Color Urine Appearance Urine pH Ur Specific [place] Urine Protein Urine Glucose (UA) Urine Ketones Urine Blood Urine Nitrite Urine Bilirubin Urine Urobilinogen Ur Leukocyte Esterase Urine WBC (Auto) Urine RBC (Auto) U Hyaline Cast (Auto) U Epithel Cells (Auto) Urine Bacteria (Auto) Pleural Fluid Source Pleural Color Pleural Appearance Pleural pH Pleural WBC Pleural RBC Pleural Polynuclear % Pleural Mononuclear % Pleural Total Protein Pleural LDH Pleural Glucose Pleural Amylase Stool Occult Bld Scrn Stl C. diff Tox B Gene Bld Cult Staph aureus PCR Negative Blood Culture MRSA PCR Negative Blood Type Antibody Screen 04/06/19 04/06/19 04/06/19 12:05 12:20 12:59 WBC RBC Hgb Hct MCV MCH MCHC RDW Std Deviation RDW Coeff of Abi Plt Count MPV Immature Gran % (Auto) Neut % (Auto) Lymph % (Auto) [place] % (Auto) Eos % (Auto) Baso % (Auto) Immature Gran # (Auto) Neut # (Auto) Lymph # (Auto) [place] # (Auto) Eos # (Auto) Baso # (Auto) Absolute Nucleated RBC Nucleated RBC % (auto) PT INR Sodium Potassium Chloride Carbon Dioxide Anion Gap BUN Creatinine Est Cr Clr Drug Dosing Est GFR ( Amer) Est GFR (Non-Af Amer) BUN/Creatinine Ratio Glucose POC Glucose 134 H 108 H Lactate Calcium Phosphorus Magnesium Total Bilirubin Direct Bilirubin AST ALT Alkaline Phosphatase Troponin I Total Protein Albumin Globulin Albumin/Globulin Ratio Lipase Urine Color Urine Appearance Urine pH Ur Specific [place] Urine Protein Urine Glucose (UA) Urine Ketones Urine Blood Urine Nitrite Urine Bilirubin Urine Urobilinogen Ur Leukocyte Esterase Urine WBC (Auto) Urine RBC (Auto) U Hyaline Cast (Auto) U Epithel Cells (Auto) Urine Bacteria (Auto) Pleural Fluid Source Pleural Color Pleural Appearance Pleural pH Pleural WBC Pleural RBC Pleural Polynuclear % Pleural Mononuclear % Pleural Total Protein Pleural LDH Pleural Glucose Pleural Amylase Stool Occult Bld Scrn Positive A Stl C. diff Tox B Gene Bld Cult Staph aureus PCR Blood Culture MRSA PCR Blood Type Antibody Screen 04/06/19 04/06/19 04/06/19 13:30 13:30 13:30 WBC RBC Hgb Hct MCV MCH MCHC RDW Std Deviation RDW Coeff of Abi Plt Count MPV Immature Gran % (Auto) Neut % (Auto) Lymph % (Auto) [place] % (Auto) Eos % (Auto) Baso % (Auto) Immature Gran # (Auto) Neut # (Auto) Lymph # (Auto) [place] # (Auto) Eos # (Auto) Baso # (Auto) Absolute Nucleated RBC Nucleated RBC % (auto) PT INR Sodium Potassium Chloride Carbon Dioxide Anion Gap BUN Creatinine Est Cr Clr Drug Dosing Est GFR ( Amer) Est GFR (Non-Af Amer) BUN/Creatinine Ratio Glucose POC Glucose Lactate Calcium Phosphorus Magnesium Total Bilirubin Direct Bilirubin AST ALT Alkaline Phosphatase Troponin I Total Protein Albumin Globulin Albumin/Globulin Ratio Lipase Urine Color Urine Appearance Urine pH Ur Specific [place] Urine Protein Urine Glucose (UA) Urine Ketones Urine Blood Urine Nitrite Urine Bilirubin Urine Urobilinogen Ur Leukocyte Esterase Urine WBC (Auto) Urine RBC (Auto) U Hyaline Cast (Auto) U Epithel Cells (Auto) Urine Bacteria (Auto) Pleural Fluid Source LEFT LUNG Pleural Color JOSE Pleural Appearance CLOUDY Pleural pH < 6.60 L Pleural WBC 8644 Pleural RBC 86167 Pleural Polynuclear % 90.4 Pleural Mononuclear % 9.6 Pleural Total Protein 3.7 Pleural LDH 469 Pleural Glucose < 1 Pleural Amylase 19 Stool Occult Bld Scrn Stl C. diff Tox B Gene Bld Cult Staph aureus PCR Blood Culture MRSA PCR Blood Type Antibody Screen 04/06/19 04/06/19 04/06/19 13:56 15:01 15:24 WBC RBC Hgb Hct MCV MCH MCHC RDW Std Deviation RDW Coeff of Abi Plt Count MPV Immature Gran % (Auto) Neut % (Auto) Lymph % (Auto) [place] % (Auto) Eos % (Auto) Baso % (Auto) Immature Gran # (Auto) Neut # (Auto) Lymph # (Auto) [place] # (Auto) Eos # (Auto) Baso # (Auto) Absolute Nucleated RBC Nucleated RBC % (auto) PT INR Sodium Potassium Chloride Carbon Dioxide Anion Gap BUN Creatinine Est Cr Clr Drug Dosing Est GFR ( Amer) Est GFR (Non-Af Amer) BUN/Creatinine Ratio Glucose POC Glucose 136 H 108 H 103 H Lactate Calcium Phosphorus Magnesium Total Bilirubin Direct Bilirubin AST ALT Alkaline Phosphatase Troponin I Total Protein Albumin Globulin Albumin/Globulin Ratio Lipase Urine Color Urine Appearance Urine pH Ur Specific [place] Urine Protein Urine Glucose (UA) Urine Ketones Urine Blood Urine Nitrite Urine Bilirubin Urine Urobilinogen Ur Leukocyte Esterase Urine WBC (Auto) Urine RBC (Auto) U Hyaline Cast (Auto) U Epithel Cells (Auto) Urine Bacteria (Auto) Pleural Fluid Source Pleural Color Pleural Appearance Pleural pH Pleural WBC Pleural RBC Pleural Polynuclear % Pleural Mononuclear % Pleural Total Protein Pleural LDH Pleural Glucose Pleural Amylase Stool Occult Bld Scrn Stl C. diff Tox B Gene Bld Cult Staph aureus PCR Blood Culture MRSA PCR Blood Type Antibody Screen 04/06/19 04/06/19 04/06/19 15:38 15:54 16:11 WBC RBC Hgb Hct MCV MCH MCHC RDW Std Deviation RDW Coeff of Abi Plt Count MPV Immature Gran % (Auto) Neut % (Auto) Lymph % (Auto) [place] % (Auto) Eos % (Auto) Baso % (Auto) Immature Gran # (Auto) Neut # (Auto) Lymph # (Auto) [place] # (Auto) Eos # (Auto) Baso # (Auto) Absolute Nucleated RBC Nucleated RBC % (auto) PT INR Sodium Potassium Chloride Carbon Dioxide Anion Gap BUN Creatinine Est Cr Clr Drug Dosing Est GFR ( Amer) Est GFR (Non-Af Amer) BUN/Creatinine Ratio Glucose POC Glucose 100 H 101 H 111 H Lactate Calcium Phosphorus Magnesium Total Bilirubin Direct Bilirubin AST ALT Alkaline Phosphatase Troponin I Total Protein Albumin Globulin Albumin/Globulin Ratio Lipase Urine Color Urine Appearance Urine pH Ur Specific [place] Urine Protein Urine Glucose (UA) Urine Ketones Urine Blood Urine Nitrite Urine Bilirubin Urine Urobilinogen Ur Leukocyte Esterase Urine WBC (Auto) Urine RBC (Auto) U Hyaline Cast (Auto) U Epithel Cells (Auto) Urine Bacteria (Auto) Pleural Fluid Source Pleural Color Pleural Appearance Pleural pH Pleural WBC Pleural RBC Pleural Polynuclear % Pleural Mononuclear % Pleural Total Protein Pleural LDH Pleural Glucose Pleural Amylase Stool Occult Bld Scrn Stl C. diff Tox B Gene Bld Cult Staph aureus PCR Blood Culture MRSA PCR Blood Type Antibody Screen 04/06/19 04/06/19 04/07/19 17:06 20:18 04:25 WBC RBC Hgb Hct MCV MCH MCHC RDW Std Deviation RDW Coeff of Abi Plt Count MPV Immature Gran % (Auto) Neut % (Auto) Lymph % (Auto) [place] % (Auto) Eos % (Auto) Baso % (Auto) Immature Gran # (Auto) Neut # (Auto) Lymph # (Auto) [place] # (Auto) Eos # (Auto) Baso # (Auto) Absolute Nucleated RBC Nucleated RBC % (auto) PT INR Sodium Potassium Chloride Carbon Dioxide Anion Gap BUN Creatinine 1.61 H D Est Cr Clr Drug Dosing 47.8 Est GFR ( Amer) 48.1 Est GFR (Non-Af Amer) 41.5 BUN/Creatinine Ratio Glucose POC Glucose 125 H 135 H Lactate Calcium Phosphorus Magnesium Total Bilirubin Direct Bilirubin AST ALT Alkaline Phosphatase Troponin I Total Protein Albumin Globulin Albumin/Globulin Ratio Lipase Urine Color Urine Appearance Urine pH Ur Specific [place] Urine Protein Urine Glucose (UA) Urine Ketones Urine Blood Urine Nitrite Urine Bilirubin Urine Urobilinogen Ur Leukocyte Esterase Urine WBC (Auto) Urine RBC (Auto) U Hyaline Cast (Auto) U Epithel Cells (Auto) Urine Bacteria (Auto) Pleural Fluid Source Pleural Color Pleural Appearance Pleural pH Pleural WBC Pleural RBC Pleural Polynuclear % Pleural Mononuclear % Pleural Total Protein Pleural LDH Pleural Glucose Pleural Amylase Stool Occult Bld Scrn Stl C. diff Tox B Gene Bld Cult Staph aureus PCR Blood Culture MRSA PCR Blood Type Antibody Screen 04/07/19 04/07/19 04/07/19 04:29 08:25 09:43 WBC RBC Hgb 10.1 L Hct 30.9 L MCV MCH MCHC RDW Std Deviation RDW Coeff of Abi Plt Count MPV Immature Gran % (Auto) Neut % (Auto) Lymph % (Auto) [place] % (Auto) Eos % (Auto) Baso % (Auto) Immature Gran # (Auto) Neut # (Auto) Lymph # (Auto) [place] # (Auto) Eos # (Auto) Baso # (Auto) Absolute Nucleated RBC Nucleated RBC % (auto) PT 31.1 H INR 3.3 H Sodium Potassium Chloride Carbon Dioxide Anion Gap BUN Creatinine Est Cr Clr Drug Dosing Est GFR ( Amer) Est GFR (Non-Af Amer) BUN/Creatinine Ratio Glucose POC Glucose 164 H Lactate Calcium Phosphorus Magnesium Total Bilirubin Direct Bilirubin AST ALT Alkaline Phosphatase Troponin I Total Protein Albumin Globulin Albumin/Globulin Ratio Lipase Urine Color Urine Appearance Urine pH Ur Specific [place] Urine Protein Urine Glucose (UA) Urine Ketones Urine Blood Urine Nitrite Urine Bilirubin Urine Urobilinogen Ur Leukocyte Esterase Urine WBC (Auto) Urine RBC (Auto) U Hyaline Cast (Auto) U Epithel Cells (Auto) Urine Bacteria (Auto) Pleural Fluid Source Pleural Color Pleural Appearance Pleural pH Pleural WBC Pleural RBC Pleural Polynuclear % Pleural Mononuclear % Pleural Total Protein Pleural LDH Pleural Glucose Pleural Amylase Stool Occult Bld Scrn Stl C. diff Tox B Gene Bld Cult Staph aureus PCR Blood Culture MRSA PCR Blood Type Antibody Screen 04/07/19 04/07/19 04/07/19 09:43 11:44 13:10 WBC RBC Hgb Hct MCV MCH MCHC RDW Std Deviation RDW Coeff of Abi Plt Count MPV Immature Gran % (Auto) Neut % (Auto) Lymph % (Auto) [place] % (Auto) Eos % (Auto) Baso % (Auto) Immature Gran # (Auto) Neut # (Auto) Lymph # (Auto) [place] # (Auto) Eos # (Auto) Baso # (Auto) Absolute Nucleated RBC Nucleated RBC % (auto) PT INR Sodium Potassium Chloride Carbon Dioxide Anion Gap BUN Creatinine Est Cr Clr Drug Dosing Est GFR ( Amer) Est GFR (Non-Af Amer) BUN/Creatinine Ratio Glucose POC Glucose 196 H Lactate Calcium Phosphorus Magnesium Total Bilirubin Direct Bilirubin AST ALT Alkaline Phosphatase Troponin I Total Protein Albumin Globulin Albumin/Globulin Ratio Lipase Urine Color Yellow Urine Appearance Clear Urine pH 5.0 Ur Specific [place] 1.024 Urine Protein Trace H Urine Glucose (UA) Negative Urine Ketones Negative Urine Blood Negative Urine Nitrite Negative Urine Bilirubin Negative Urine Urobilinogen Negative Ur Leukocyte Esterase Negative Urine WBC (Auto) 1-5 Urine RBC (Auto) 10-30 H U Hyaline Cast (Auto) 0 U Epithel Cells (Auto) 10-20 H Urine Bacteria (Auto) Negative Pleural Fluid Source Pleural Color Pleural Appearance Pleural pH Pleural WBC Pleural RBC Pleural Polynuclear % Pleural Mononuclear % Pleural Total Protein Pleural LDH Pleural Glucose Pleural Amylase Stool Occult Bld Scrn Stl C. diff Tox B Gene Bld Cult Staph aureus PCR Blood Culture MRSA PCR Blood Type A Positive Antibody Screen NEGATIVE 04/07/19 04/07/19 04/07/19 15:17 16:37 21:01 WBC RBC Hgb 10.4 L 10.0 L Hct 31.5 L 30.3 L MCV MCH MCHC RDW Std Deviation RDW Coeff of Abi Plt Count MPV Immature Gran % (Auto) Neut % (Auto) Lymph % (Auto) [place] % (Auto) Eos % (Auto) Baso % (Auto) Immature Gran # (Auto) Neut # (Auto) Lymph # (Auto) [place] # (Auto) Eos # (Auto) Baso # (Auto) Absolute Nucleated RBC Nucleated RBC % (auto) PT INR Sodium Potassium Chloride Carbon Dioxide Anion Gap BUN Creatinine Est Cr Clr Drug Dosing Est GFR ( Amer) Est GFR (Non-Af Amer) BUN/Creatinine Ratio Glucose POC Glucose 259 H Lactate Calcium Phosphorus Magnesium Total Bilirubin Direct Bilirubin AST ALT Alkaline Phosphatase Troponin I Total Protein Albumin Globulin Albumin/Globulin Ratio Lipase Urine Color Urine Appearance Urine pH Ur Specific [place] Urine Protein Urine Glucose (UA) Urine Ketones Urine Blood Urine Nitrite Urine Bilirubin Urine Urobilinogen Ur Leukocyte Esterase Urine WBC (Auto) Urine RBC (Auto) U Hyaline Cast (Auto) U Epithel Cells (Auto) Urine Bacteria (Auto) Pleural Fluid Source Pleural Color Pleural Appearance Pleural pH Pleural WBC Pleural RBC Pleural Polynuclear % Pleural Mononuclear % Pleural Total Protein Pleural LDH Pleural Glucose Pleural Amylase Stool Occult Bld Scrn Stl C. diff Tox B Gene Bld Cult Staph aureus PCR Blood Culture MRSA PCR Blood Type Antibody Screen 04/07/19 04/07/19 04/08/19 21:02 23:58 00:21 WBC 13.97 H RBC 3.28 L Hgb 8.9 L Hct 27.4 L MCV 83.5 MCH 27.1 MCHC 32.5 RDW Std Deviation 53.6 H RDW Coeff of Abi 17.4 H Plt Count 173 MPV 10.0 Immature Gran % (Auto) 0.3 Neut % (Auto) 91.5 Lymph % (Auto) 2.1 [place] % (Auto) 5.7 Eos % (Auto) 0.3 Baso % (Auto) 0.1 Immature Gran # (Auto) 0.04 H Neut # (Auto) 12.78 H Lymph # (Auto) 0.30 L [place] # (Auto) 0.80 H Eos # (Auto) 0.04 Baso # (Auto) 0.01 Absolute Nucleated RBC Nucleated RBC % (auto) PT INR Sodium Potassium Chloride Carbon Dioxide Anion Gap BUN Creatinine Est Cr Clr Drug Dosing Est GFR ( Amer) Est GFR (Non-Af Amer) BUN/Creatinine Ratio Glucose POC Glucose 292 H 238 H Lactate Calcium Phosphorus Magnesium Total Bilirubin Direct Bilirubin AST ALT Alkaline Phosphatase Troponin I Total Protein Albumin Globulin Albumin/Globulin Ratio Lipase Urine Color Urine Appearance Urine pH Ur Specific [place] Urine Protein Urine Glucose (UA) Urine Ketones Urine Blood Urine Nitrite Urine Bilirubin Urine Urobilinogen Ur Leukocyte Esterase Urine WBC (Auto) Urine RBC (Auto) U Hyaline Cast (Auto) U Epithel Cells (Auto) Urine Bacteria (Auto) Pleural Fluid Source Pleural Color Pleural Appearance Pleural pH Pleural WBC Pleural RBC Pleural Polynuclear % Pleural Mononuclear % Pleural Total Protein Pleural LDH Pleural Glucose Pleural Amylase Stool Occult Bld Scrn Stl C. diff Tox B Gene Bld Cult Staph aureus PCR Blood Culture MRSA PCR Blood Type Antibody Screen 04/08/19 04/08/19 04/08/19 00:21 00:21 00:21 WBC RBC Hgb Hct MCV MCH MCHC RDW Std Deviation RDW Coeff of Abi Plt Count MPV Immature Gran % (Auto) Neut % (Auto) Lymph % (Auto) [place] % (Auto) Eos % (Auto) Baso % (Auto) Immature Gran # (Auto) Neut # (Auto) Lymph # (Auto) [place] # (Auto) Eos # (Auto) Baso # (Auto) Absolute Nucleated RBC Nucleated RBC % (auto) PT 29.3 H INR 3.1 H Sodium 140 D Potassium 4.4 Chloride 109 H Carbon Dioxide 22 Anion Gap 9.0 BUN 65 H Creatinine 1.36 Est Cr Clr Drug Dosing 56.6 Est GFR ( Amer) 59.0 Est GFR (Non-Af Amer) 50.9 BUN/Creatinine Ratio 48.1 H Glucose 199 H POC Glucose Lactate 1.9 Calcium 8.1 L Phosphorus 1.8 L D Magnesium 2.6 H Total Bilirubin 1.1 H Direct Bilirubin AST 39 H ALT 34 Alkaline Phosphatase 193 H Troponin I Total Protein 6.5 Albumin 1.8 L Globulin 4.7 H Albumin/Globulin Ratio 0.4 L Lipase Urine Color Urine Appearance Urine pH Ur Specific [place] Urine Protein Urine Glucose (UA) Urine Ketones Urine Blood Urine Nitrite Urine Bilirubin Urine Urobilinogen Ur Leukocyte Esterase Urine WBC (Auto) Urine RBC (Auto) U Hyaline Cast (Auto) U Epithel Cells (Auto) Urine Bacteria (Auto) Pleural Fluid Source Pleural Color Pleural Appearance Pleural pH Pleural WBC Pleural RBC Pleural Polynuclear % Pleural Mononuclear % Pleural Total Protein Pleural LDH Pleural Glucose Pleural Amylase Stool Occult Bld Scrn Stl C. diff Tox B Gene Bld Cult Staph aureus PCR Blood Culture MRSA PCR Blood Type Antibody Screen 04/08/19 04/08/19 04/08/19 00:21 04:13 06:05 WBC RBC Hgb Hct MCV MCH MCHC RDW Std Deviation RDW Coeff of Abi Plt Count MPV Immature Gran % (Auto) Neut % (Auto) Lymph % (Auto) [place] % (Auto) Eos % (Auto) Baso % (Auto) Immature Gran # (Auto) Neut # (Auto) Lymph # (Auto) [place] # (Auto) Eos # (Auto) Baso # (Auto) Absolute Nucleated RBC Nucleated RBC % (auto) PT INR Sodium Potassium Chloride Carbon Dioxide Anion Gap BUN Creatinine Est Cr Clr Drug Dosing Est GFR ( Amer) Est GFR (Non-Af Amer) BUN/Creatinine Ratio Glucose POC Glucose 164 H Lactate Calcium Phosphorus Magnesium Total Bilirubin Direct Bilirubin AST ALT Alkaline Phosphatase Troponin I Total Protein Albumin Globulin Albumin/Globulin Ratio Lipase 775 H Urine Color Urine Appearance Urine pH Ur Specific [place] Urine Protein Urine Glucose (UA) Urine Ketones Urine Blood Urine Nitrite Urine Bilirubin Urine Urobilinogen Ur Leukocyte Esterase Urine WBC (Auto) Urine RBC (Auto) U Hyaline Cast (Auto) U Epithel Cells (Auto) Urine Bacteria (Auto) Pleural Fluid Source Pleural Color Pleural Appearance Pleural pH Pleural WBC Pleural RBC Pleural Polynuclear % Pleural Mononuclear % Pleural Total Protein Pleural LDH Pleural Glucose Pleural Amylase Stool Occult Bld Scrn Stl C. diff Tox B Gene Negative Cdiff Gene Bld Cult Staph aureus PCR Blood Culture MRSA PCR Blood Type Antibody Screen 04/08/19 04/08/19 04/08/19 08:28 08:28 09:11 WBC RBC Hgb 8.5 L Hct 25.7 L MCV MCH MCHC RDW Std Deviation RDW Coeff of Abi Plt Count MPV Immature Gran % (Auto) Neut % (Auto) Lymph % (Auto) [place] % (Auto) Eos % (Auto) Baso % (Auto) Immature Gran # (Auto) Neut # (Auto) Lymph # (Auto) [place] # (Auto) Eos # (Auto) Baso # (Auto) Absolute Nucleated RBC Nucleated RBC % (auto) PT INR Sodium 141 Potassium 4.4 Chloride 110 H Carbon Dioxide 19 L Anion Gap 12.0 H BUN 73 H Creatinine 1.27 Est Cr Clr Drug Dosing 60.6 Est GFR ( Amer) 64.1 Est GFR (Non-Af Amer) 55.3 BUN/Creatinine Ratio 57.6 H Glucose 203 H POC Glucose 239 H Lactate Calcium 8.5 Phosphorus Magnesium Total Bilirubin 1.3 H Direct Bilirubin 0.9 H AST 42 H ALT 34 Alkaline Phosphatase 180 H Troponin I Total Protein 6.5 Albumin 1.9 L Globulin Albumin/Globulin Ratio Lipase Urine Color Urine Appearance Urine pH Ur Specific [place] Urine Protein Urine Glucose (UA) Urine Ketones Urine Blood Urine Nitrite Urine Bilirubin Urine Urobilinogen Ur Leukocyte Esterase Urine WBC (Auto) Urine RBC (Auto) U Hyaline Cast (Auto) U Epithel Cells (Auto) Urine Bacteria (Auto) Pleural Fluid Source Pleural Color Pleural Appearance Pleural pH Pleural WBC Pleural RBC Pleural Polynuclear % Pleural Mononuclear % Pleural Total Protein Pleural LDH Pleural Glucose Pleural Amylase Stool Occult Bld Scrn Stl C. diff Tox B Gene Bld Cult Staph aureus PCR Blood Culture MRSA PCR Blood Type Antibody Screen 04/08/19 04/08/19 04/08/19 10:59 12:07 12:07 WBC RBC Hgb 8.7 L Hct 26.0 L MCV MCH MCHC RDW Std Deviation RDW Coeff of Abi Plt Count MPV Immature Gran % (Auto) Neut % (Auto) Lymph % (Auto) [place] % (Auto) Eos % (Auto) Baso % (Auto) Immature Gran # (Auto) Neut # (Auto) Lymph # (Auto) [place] # (Auto) Eos # (Auto) Baso # (Auto) Absolute Nucleated RBC Nucleated RBC % (auto) PT 19.6 H INR 2.0 H Sodium Potassium Chloride Carbon Dioxide Anion Gap BUN Creatinine Est Cr Clr Drug Dosing Est GFR ( Amer) Est GFR (Non-Af Amer) BUN/Creatinine Ratio Glucose POC Glucose 256 H Lactate Calcium Phosphorus Magnesium Total Bilirubin Direct Bilirubin AST ALT Alkaline Phosphatase Troponin I Total Protein Albumin Globulin Albumin/Globulin Ratio Lipase Urine Color Urine Appearance Urine pH Ur Specific [place] Urine Protein Urine Glucose (UA) Urine Ketones Urine Blood Urine Nitrite Urine Bilirubin Urine Urobilinogen Ur Leukocyte Esterase Urine WBC (Auto) Urine RBC (Auto) U Hyaline Cast (Auto) U Epithel Cells (Auto) Urine Bacteria (Auto) Pleural Fluid Source Pleural Color Pleural Appearance Pleural pH Pleural WBC Pleural RBC Pleural Polynuclear % Pleural Mononuclear % Pleural Total Protein Pleural LDH Pleural Glucose Pleural Amylase Stool Occult Bld Scrn Stl C. diff Tox B Gene Bld Cult Staph aureus PCR Blood Culture MRSA PCR Blood Type Antibody Screen 04/08/19 04/08/19 04/08/19 12:52 14:49 15:50 WBC RBC Hgb Hct MCV MCH MCHC RDW Std Deviation RDW Coeff of Abi Plt Count MPV Immature Gran % (Auto) Neut % (Auto) Lymph % (Auto) [place] % (Auto) Eos % (Auto) Baso % (Auto) Immature Gran # (Auto) Neut # (Auto) Lymph # (Auto) [place] # (Auto) Eos # (Auto) Baso # (Auto) Absolute Nucleated RBC Nucleated RBC % (auto) PT INR Sodium Potassium Chloride Carbon Dioxide Anion Gap BUN Creatinine Est Cr Clr Drug Dosing Est GFR ( Amer) Est GFR (Non-Af Amer) BUN/Creatinine Ratio Glucose POC Glucose 255 H 206 H 186 H Lactate Calcium Phosphorus Magnesium Total Bilirubin Direct Bilirubin AST ALT Alkaline Phosphatase Troponin I Total Protein Albumin Globulin Albumin/Globulin Ratio Lipase Urine Color Urine Appearance Urine pH Ur Specific [place] Urine Protein Urine Glucose (UA) Urine Ketones Urine Blood Urine Nitrite Urine Bilirubin Urine Urobilinogen Ur Leukocyte Esterase Urine WBC (Auto) Urine RBC (Auto) U Hyaline Cast (Auto) U Epithel Cells (Auto) Urine Bacteria (Auto) Pleural Fluid Source Pleural Color Pleural Appearance Pleural pH Pleural WBC Pleural RBC Pleural Polynuclear % Pleural Mononuclear % Pleural Total Protein Pleural LDH Pleural Glucose Pleural Amylase Stool Occult Bld Scrn Stl C. diff Tox B Gene Bld Cult Staph aureus PCR Blood Culture MRSA PCR Blood Type Antibody Screen 04/08/19 04/08/19 04/08/19 16:51 17:59 17:59 WBC RBC Hgb 8.9 L Hct 26.8 L MCV MCH MCHC RDW Std Deviation RDW Coeff of Abi Plt Count MPV Immature Gran % (Auto) Neut % (Auto) Lymph % (Auto) [place] % (Auto) Eos % (Auto) Baso % (Auto) Immature Gran # (Auto) Neut # (Auto) Lymph # (Auto) [place] # (Auto) Eos # (Auto) Baso # (Auto) Absolute Nucleated RBC Nucleated RBC % (auto) PT 15.1 H INR 1.5 H Sodium Potassium Chloride Carbon Dioxide Anion Gap BUN Creatinine Est Cr Clr Drug Dosing Est GFR ( Amer) Est GFR (Non-Af Amer) BUN/Creatinine Ratio Glucose POC Glucose 163 H Lactate Calcium Phosphorus Magnesium Total Bilirubin Direct Bilirubin AST ALT Alkaline Phosphatase Troponin I Total Protein Albumin Globulin Albumin/Globulin Ratio Lipase Urine Color Urine Appearance Urine pH Ur Specific [place] Urine Protein Urine Glucose (UA) Urine Ketones Urine Blood Urine Nitrite Urine Bilirubin Urine Urobilinogen Ur Leukocyte Esterase Urine WBC (Auto) Urine RBC (Auto) U Hyaline Cast (Auto) U Epithel Cells (Auto) Urine Bacteria (Auto) Pleural Fluid Source Pleural Color Pleural Appearance Pleural pH Pleural WBC Pleural RBC Pleural Polynuclear % Pleural Mononuclear % Pleural Total Protein Pleural LDH Pleural Glucose Pleural Amylase Stool Occult Bld Scrn Stl C. diff Tox B Gene Bld Cult Staph aureus PCR Blood Culture MRSA PCR Blood Type Antibody Screen 04/08/19 04/08/19 04/08/19 19:25 21:03 23:35 WBC RBC Hgb Hct MCV MCH MCHC RDW Std Deviation RDW Coeff of Abi Plt Count MPV Immature Gran % (Auto) Neut % (Auto) Lymph % (Auto) [place] % (Auto) Eos % (Auto) Baso % (Auto) Immature Gran # (Auto) Neut # (Auto) Lymph # (Auto) [place] # (Auto) Eos # (Auto) Baso # (Auto) Absolute Nucleated RBC Nucleated RBC % (auto) PT INR Sodium Potassium Chloride Carbon Dioxide Anion Gap BUN Creatinine Est Cr Clr Drug Dosing Est GFR ( Amer) Est GFR (Non-Af Amer) BUN/Creatinine Ratio Glucose POC Glucose 127 H 105 H 71 Lactate Calcium Phosphorus Magnesium Total Bilirubin Direct Bilirubin AST ALT Alkaline Phosphatase Troponin I Total Protein Albumin Globulin Albumin/Globulin Ratio Lipase Urine Color Urine Appearance Urine pH Ur Specific [place] Urine Protein Urine Glucose (UA) Urine Ketones Urine Blood Urine Nitrite Urine Bilirubin Urine Urobilinogen Ur Leukocyte Esterase Urine WBC (Auto) Urine RBC (Auto) U Hyaline Cast (Auto) U Epithel Cells (Auto) Urine Bacteria (Auto) Pleural Fluid Source Pleural Color Pleural Appearance Pleural pH Pleural WBC Pleural RBC Pleural Polynuclear % Pleural Mononuclear % Pleural Total Protein Pleural LDH Pleural Glucose Pleural Amylase Stool Occult Bld Scrn Stl C. diff Tox B Gene Bld Cult Staph aureus PCR Blood Culture MRSA PCR Blood Type Antibody Screen 04/08/19 04/09/19 04/09/19 23:51 00:09 01:24 WBC RBC Hgb Hct MCV MCH MCHC RDW Std Deviation RDW Coeff of Abi Plt Count MPV Immature Gran % (Auto) Neut % (Auto) Lymph % (Auto) [place] % (Auto) Eos % (Auto) Baso % (Auto) Immature Gran # (Auto) Neut # (Auto) Lymph # (Auto) [place] # (Auto) Eos # (Auto) Baso # (Auto) Absolute Nucleated RBC Nucleated RBC % (auto) PT INR Sodium Potassium Chloride Carbon Dioxide Anion Gap BUN Creatinine Est Cr Clr Drug Dosing Est GFR ( Amer) Est GFR (Non-Af Amer) BUN/Creatinine Ratio Glucose POC Glucose 66 L* 171 H 102 H Lactate Calcium Phosphorus Magnesium Total Bilirubin Direct Bilirubin AST ALT Alkaline Phosphatase Troponin I Total Protein Albumin Globulin Albumin/Globulin Ratio Lipase Urine Color Urine Appearance Urine pH Ur Specific [place] Urine Protein Urine Glucose (UA) Urine Ketones Urine Blood Urine Nitrite Urine Bilirubin Urine Urobilinogen Ur Leukocyte Esterase Urine WBC (Auto) Urine RBC (Auto) U Hyaline Cast (Auto) U Epithel Cells (Auto) Urine Bacteria (Auto) Pleural Fluid Source Pleural Color Pleural Appearance Pleural pH Pleural WBC Pleural RBC Pleural Polynuclear % Pleural Mononuclear % Pleural Total Protein Pleural LDH Pleural Glucose Pleural Amylase Stool Occult Bld Scrn Stl C. diff Tox B Gene Bld Cult Staph aureus PCR Blood Culture MRSA PCR Blood Type Antibody Screen 04/09/19 04/09/19 04/09/19 02:08 02:59 04:05 WBC RBC Hgb Hct MCV MCH MCHC RDW Std Deviation RDW Coeff of Abi Plt Count MPV Immature Gran % (Auto) Neut % (Auto) Lymph % (Auto) [place] % (Auto) Eos % (Auto) Baso % (Auto) Immature Gran # (Auto) Neut # (Auto) Lymph # (Auto) [place] # (Auto) Eos # (Auto) Baso # (Auto) Absolute Nucleated RBC Nucleated RBC % (auto) PT INR Sodium Potassium Chloride Carbon Dioxide Anion Gap BUN Creatinine Est Cr Clr Drug Dosing Est GFR ( Amer) Est GFR (Non-Af Amer) BUN/Creatinine Ratio Glucose POC Glucose 93 96 94 Lactate Calcium Phosphorus Magnesium Total Bilirubin Direct Bilirubin AST ALT Alkaline Phosphatase Troponin I Total Protein Albumin Globulin Albumin/Globulin Ratio Lipase Urine Color Urine Appearance Urine pH Ur Specific [place] Urine Protein Urine Glucose (UA) Urine Ketones Urine Blood Urine Nitrite Urine Bilirubin Urine Urobilinogen Ur Leukocyte Esterase Urine WBC (Auto) Urine RBC (Auto) U Hyaline Cast (Auto) U Epithel Cells (Auto) Urine Bacteria (Auto) Pleural Fluid Source Pleural Color Pleural Appearance Pleural pH Pleural WBC Pleural RBC Pleural Polynuclear % Pleural Mononuclear % Pleural Total Protein Pleural LDH Pleural Glucose Pleural Amylase Stool Occult Bld Scrn Stl C. diff Tox B Gene Bld Cult Staph aureus PCR Blood Culture MRSA PCR Blood Type Antibody Screen 04/09/19 04/09/19 04/09/19 06:12 07:04 07:04 WBC 16.36 H RBC 2.95 L Hgb 8.0 L Hct 24.2 L MCV 82.0 MCH 27.1 MCHC 33.1 RDW Std Deviation 51.9 H RDW Coeff of Abi 17.3 H Plt Count 209 MPV 10.3 Immature Gran % (Auto) 0.5 Neut % (Auto) 88.1 Lymph % (Auto) 5.3 [place] % (Auto) 5.4 Eos % (Auto) 0.6 Baso % (Auto) 0.1 Immature Gran # (Auto) 0.08 H Neut # (Auto) 14.42 H Lymph # (Auto) 0.86 L [place] # (Auto) 0.89 H Eos # (Auto) 0.10 Baso # (Auto) 0.01 Absolute Nucleated RBC 0.04 H Nucleated RBC % (auto) 0.2 PT 14.1 H INR 1.4 H Sodium Potassium Chloride Carbon Dioxide Anion Gap BUN Creatinine Est Cr Clr Drug Dosing Est GFR ( Amer) Est GFR (Non-Af Amer) BUN/Creatinine Ratio Glucose POC Glucose 101 H Lactate Calcium Phosphorus Magnesium Total Bilirubin Direct Bilirubin AST ALT Alkaline Phosphatase Troponin I Total Protein Albumin Globulin Albumin/Globulin Ratio Lipase Urine Color Urine Appearance Urine pH Ur Specific [place] Urine Protein Urine Glucose (UA) Urine Ketones Urine Blood Urine Nitrite Urine Bilirubin Urine Urobilinogen Ur Leukocyte Esterase Urine WBC (Auto) Urine RBC (Auto) U Hyaline Cast (Auto) U Epithel Cells (Auto) Urine Bacteria (Auto) Pleural Fluid Source Pleural Color Pleural Appearance Pleural pH Pleural WBC Pleural RBC Pleural Polynuclear % Pleural Mononuclear % Pleural Total Protein Pleural LDH Pleural Glucose Pleural Amylase Stool Occult Bld Scrn Stl C. diff Tox B Gene Bld Cult Staph aureus PCR Blood Culture MRSA PCR Blood Type Antibody Screen 04/09/19 04/09/19 04/09/19 07:04 08:55 09:53 WBC RBC Hgb Hct MCV MCH MCHC RDW Std Deviation RDW Coeff of Abi Plt Count MPV Immature Gran % (Auto) Neut % (Auto) Lymph % (Auto) [place] % (Auto) Eos % (Auto) Baso % (Auto) Immature Gran # (Auto) Neut # (Auto) Lymph # (Auto) [place] # (Auto) Eos # (Auto) Baso # (Auto) Absolute Nucleated RBC Nucleated RBC % (auto) PT INR Sodium 145 Potassium 3.9 Chloride 116 H Carbon Dioxide 22 Anion Gap 7.0 BUN 49 H Creatinine 1.02 Est Cr Clr Drug Dosing 75.4 Est GFR ( Amer) 83.5 Est GFR (Non-Af Amer) 72.1 BUN/Creatinine Ratio 48.0 H Glucose 95 POC Glucose 105 H 112 H Lactate Calcium 8.3 L Phosphorus 2.4 L Magnesium 2.6 H Total Bilirubin 1.7 H Direct Bilirubin AST 30 ALT 25 Alkaline Phosphatase 150 H Troponin I Total Protein 6.4 Albumin 1.8 L Globulin 4.6 H Albumin/Globulin Ratio 0.4 L Lipase Urine Color Urine Appearance Urine pH Ur Specific [place] Urine Protein Urine Glucose (UA) Urine Ketones Urine Blood Urine Nitrite Urine Bilirubin Urine Urobilinogen Ur Leukocyte Esterase Urine WBC (Auto) Urine RBC (Auto) U Hyaline Cast (Auto) U Epithel Cells (Auto) Urine Bacteria (Auto) Pleural Fluid Source Pleural Color Pleural Appearance Pleural pH Pleural WBC Pleural RBC Pleural Polynuclear % Pleural Mononuclear % Pleural Total Protein Pleural LDH Pleural Glucose Pleural Amylase Stool Occult Bld Scrn Stl C. diff Tox B Gene Bld Cult Staph aureus PCR Blood Culture MRSA PCR Blood Type Antibody Screen 04/09/19 11:07 WBC RBC Hgb Hct MCV MCH MCHC RDW Std Deviation RDW Coeff of Abi Plt Count MPV Immature Gran % (Auto) Neut % (Auto) Lymph % (Auto) [place] % (Auto) Eos % (Auto) Baso % (Auto) Immature Gran # (Auto) Neut # (Auto) Lymph # (Auto) [place] # (Auto) Eos # (Auto) Baso # (Auto) Absolute Nucleated RBC Nucleated RBC % (auto) PT INR Sodium Potassium Chloride Carbon Dioxide Anion Gap BUN Creatinine Est Cr Clr Drug Dosing Est GFR ( Amer) Est GFR (Non-Af Amer) BUN/Creatinine Ratio Glucose POC Glucose 116 H Lactate Calcium Phosphorus Magnesium Total Bilirubin Direct Bilirubin AST ALT Alkaline Phosphatase Troponin I Total Protein Albumin Globulin Albumin/Globulin Ratio Lipase Urine Color Urine Appearance Urine pH Ur Specific [place] Urine Protein Urine Glucose (UA) Urine Ketones Urine Blood Urine Nitrite Urine Bilirubin Urine Urobilinogen Ur Leukocyte Esterase Urine WBC (Auto) Urine RBC (Auto) U Hyaline Cast (Auto) U Epithel Cells (Auto) Urine Bacteria (Auto) Pleural Fluid Source Pleural Color Pleural Appearance Pleural pH Pleural WBC Pleural RBC Pleural Polynuclear % Pleural Mononuclear % Pleural Total Protein Pleural LDH Pleural Glucose Pleural Amylase Stool Occult Bld Scrn Stl C. diff Tox B Gene Bld Cult Staph aureus PCR Blood Culture MRSA PCR Blood Type Antibody Screen
--- NOTE | 2019-04-09 12:15 | Pharmacy Report ---
Pharmacy Glycemic Short Note 2 - Date of Service April 09, 2019 - Glycemic Short BSG Results (Last 24 hours): 04/08/19 04/08/19 04/08/19 12:52 14:49 15:50 Glucose POC Glucose 255 H 206 H 186 H 04/08/19 04/08/19 04/08/19 16:51 19:25 21:03 Glucose POC Glucose 163 H 127 H 105 H 04/08/19 04/08/19 04/09/19 23:35 23:51 00:09 Glucose POC Glucose 71 66 L* 171 H 04/09/19 04/09/19 04/09/19 01:24 02:08 02:59 Glucose POC Glucose 102 H 93 96 04/09/19 04/09/19 04/09/19 04:05 06:12 07:04 Glucose 95 POC Glucose 94 101 H 04/09/19 04/09/19 04/09/19 08:55 09:53 11:07 Glucose POC Glucose 105 H 112 H 116 H OUTPATIENT ANTIDIABETIC REGIMEN: * glipizide 5mg QD * Lantus 75-100 units QD-per patient, dose varies based on BSG * HbA1c: 7.9% ASSESSMENT: 04/09 * Insulin drip turned off over night due to BSG of 66. Discussed glycemic plan with multidisciplinary team and provider today. As the patient will likely remain NPO for procedures for the next 24-48 hours and has been somewhat unpredictable, we will keep the insulin infusion running. I will not supplement with lantus at this time. The insulin infusion was restarted once the BSG elevated within range and was initiated at a low rate of 1 unit/hr. 04/08: * Patient hyperglycemic last evening and today despite doubling lantus dose last evening. Patient was also made NPO this morning due to GI bleed and placed on a continuous protonix drip (providing 20 mL/hr of dextrose). Discussed plan with provider and it was decided to give 20 units of lantus this morning (NPO status). In addition, AM novolog was not given. Thus we checked lunch BSG early (~1100) and given BSG of 256, an extra 20 units of lantus was given with novolog. BSG was rechecked ~ 1.5 hours later and it remained the same @ 255. I discussed with Dr. Doherty, and it was decided to resume an insulin drip at this time. I will order 20 units of lantus this evening in addition to the drip to help assist in eventual drip transition. However, given patient's labile insulin needs, NPO status, potential for procedures tomorrow, and dextrose containing protonix drip, would recommend continuing infusion for the time being. 04/07 * Patient was successfully transitioned off of the drip yesterday. BSGs since have been much improved and vasopressor have come off. Lunch BSG slightly elevated but per nurse, this was post prandial, so will hold off on altering novolog scale. 04/06 * Patient admitted with septic shock requiring pressors, started on an insulin drip overnight. As the patient remains on pressors and insulin drip rates remains at 3.1 units/hr, will hold off on drip transition. The patient is ordered a diet, but PO intake has been minimal thus far. The norepinephrine drip remains on but at a low dose and is expected to be weaned off soon. I do anticipate transition may be feasible this evening or tomorrow morning once one insulin infusion rate decreases, blood sugars remain in range, and p ressors come off. I will place a pending order to assess for possible drip transition once the following parameters are met: insulin infusion rate < 1.5 units/hr and BSG < 180 X 2. I have also ordered lantus to assist with eventual drip transition. Given the wide variability in patient's home dose and minimal PO intake, will use a weight based stress of 2 and 3 dosing for lantus to start. PLAN FOR INPATIENT GLYCEMIC CONTROL: * Hold outpatient oral diabetes medications * Start IV insulin infusion once BSG > 110 * Goal Range 110 - 180 mg/dl * In the critical care setting, continuous IV insulin infusion has been shown to be the best method for achieving glycemic targets. * Bolus insulin * NovoLog per scale ACHS as per insulin infusion adjustment calculator
[2019-04-09] MEDS ORDERED: LIDOCAINE HCL 2% 2 ML VIAL/AMP(20MG/ML) INFIL ONE (13:04)
[2019-04-09] MEDS ORDERED: ROCURONIUM BROMIDE 10 MG/ML 5 ML VIAL ONE (13:05)
[2019-04-09] MEDS ORDERED: PROPOFOL IV EMULSION 10 MG/ML 20 ML VIAL IV ONE (13:05)
[2019-04-09] MEDS ORDERED: fentaNYL citrate 100 MCG/2 ML VIAL ONE (13:05)
[2019-04-09] MEDS ORDERED: ONDANSETRON INJ 2 MG/ML 2 ML VIAL ONE (13:05)
--- NOTE | 2019-04-09 13:10 | Anesthesiology Consultation ---
Date of Service April 09, 2019 Assessment & Plan (1) Encounter for pre-operative examination: Chart Review Chart Review: Acceptable Risk for Surgery Consults Requested none ASA [id number] Proposed Anesthesia Anesthesia Type: General Risk / Benefits Reviewed With: PT / POA / Parent / Guardian, Accepts Plan and Informed Consent Obtained History Surgery Operation Date: 04/09/19 07:00 Proposed Procedures p Endoscopic Ultrasonography Upper - Royce Madera s Esophagogastroduodenoscopy - Royce Madera Operation Date: 04/10/19 09:35 Proposed Procedures p Left Thoracoscopy with Decortication - Jacques Paula MD, FACS Height/Weight Height: 5 ft 10 in Weight: 100.3 kg Allergies Allergy/AdvReac Type Severity Reaction Status Date / Time lisinopril AdvReac Intermediate COUGH Verified 04/05/19 21:24 Medications Home Medications Medication Instructions Recorded Confirmed Last Taken acetaminophen [Tylenol Extra 500 mg PO Q4 PRN 04/05/19 04/05/19 Unknown Strength] aspirin [Aspir-81] 81 mg PO DAILY 04/05/19 04/05/19 04/05/19 atorvastatin 40 mg PO HS 04/05/19 04/05/19 04/04/19 buspirone 2.5 mg PO BID 04/05/19 04/05/19 04/05/19 docusate sodium 100 mg PO BID PRN 04/05/19 04/05/19 Unknown gabapentin 600 mg PO TID 04/05/19 04/05/19 04/05/19 glipizide 5 mg PO DAILY 04/05/19 04/05/19 04/05/19 insulin glargine [Lantus U-100 0 unit SUBCUT DAILY 04/05/19 04/05/19 04/05/19 Insulin] losartan 12.5 mg PO DAILY 04/05/19 04/05/19 04/05/19 magnesium oxide 400 mg PO QAM 04/05/19 04/05/19 04/05/19 metoprolol succinate 25 mg PO DAILY 04/05/19 04/05/19 04/05/19 nitroglycerin [Nitrostat] 0.4 mg SUBLINGUAL DIRECTED PRN 04/05/19 04/05/19 Unknown polyethylene glycol 3350 [Miralax] 17 g PO DAILY PRN 04/05/19 04/05/19 Unknown sennosides 8.6 mg PO DAILY PRN 04/05/19 04/05/19 Unknown spironolactone 25 mg PO DAILY 04/05/19 04/05/19 04/05/19 tamsulosin [Flomax] 0.4 mg PO HS 04/05/19 04/05/19 04/04/19 torsemide 20 mg PO QPM 04/05/19 04/05/19 04/04/19 torsemide 40 mg PO QAM 04/05/19 04/05/19 04/05/19 warfarin 5 mg PO DAILY 04/05/19 04/05/19 04/05/19 zolpidem 5 mg PO HS PRN 04/05/19 04/05/19 Unknown Active Medications Generic Name Dose Route Start Last Admin Trade Name Freq PRN Reason Stop Dose Admin Acetaminophen 500 mg 04/05/19 23:16 04/07/19 22:07 Tylenol PO 05/05/19 23:15 500 mg Q4 PRN Administration Fever Or Pain Aspirin 81 mg 04/06/19 09:00 04/07/19 09:37 Ecotrin Ectab PO 05/06/19 08:59 81 mg DAILY ZAHRA Administration Atorvastatin Calcium 40 mg 04/06/19 21:00 04/08/19 20:44 Lipitor PO 05/06/19 20:59 40 mg HS ZAHRA Administration Buspirone HCl 2.5 mg 04/06/19 01:43 04/07/19 09:35 Buspar PO 05/06/19 01:42 2.5 mg TID PRN Administration Anxiety Dextrose 25 - 50 ml 04/05/19 23:16 04/08/19 23:57 Dextrose 50% IV 05/05/19 23:15 50 ml UD PRN Administration Hypoglycemia Protocol Protocol Docusate Sodium 100 mg 04/05/19 23:16 04/06/19 08:30 Colace PO 05/05/19 23:15 100 mg BID PRN Administration Constipation Gabapentin 100 mg 04/06/19 09:00 04/09/19 08:05 Neurontin PO 05/06/19 08:59 100 mg TID ZAHRA Administration Ertapenem 1,000 mg/ Sodium 60 mls @ 100 mls/hr 04/08/19 11:00 04/09/19 12:25 Chloride IV 04/18/19 10:59 Infused Q24H ZAHRA Infusion Pantoprazole Sodium 40 mg/ 100 mls @ 20 mls/hr 04/08/19 09:30 04/09/19 08:44 Dextrose IV 05/08/19 09:29 20 mls/hr Q5H ZAHRA Administration Lorazepam 0.5 mg in 1 mls @ 1 mls/min 04/08/19 09:06 04/08/19 20:51 Ativan IV 05/08/19 09:05 1 mls/min ONE PRN Administration Anxiety Insulin Human Regular 250 250 mls @ 1 mls/hr 04/08/19 14:00 04/09/19 11:11 units/ Sodium Chloride IV 05/08/19 13:59 1 units/hr .Q24H ZAHRA 1 mls/hr Titration Protocol 1 UNITS/HR Insulin Aspart 0 units 04/08/19 16:00 04/09/19 08:19 Novolog Flexpen SC 05/08/19 15:59 Not Given Q4 ZAHRA Insulin Aspart 0 units 04/08/19 16:30 04/09/19 11:12 Novolog Flexpen SC 05/08/19 16:29 Not Given ACHS [facility] Insulin Glargine 20 units 04/07/19 09:00 04/08/19 20:47 Lantus Solostar Pen SC 05/07/19 08:59 20 units BID ZAHRA Administration Magnesium Oxide 400 mg 04/06/19 09:00 04/07/19 09:33 Mag-Ox PO 05/06/19 08:59 Not Given QAM ZAHRA Metoprolol Tartrate 25 mg 04/09/19 09:00 04/09/19 08:44 Lopressor PO 05/09/19 08:59 25 mg BID ZAHRA Administration Sennosides 8.6 mg 04/05/19 23:16 04/06/19 08:30 Senokot PO 05/05/19 23:15 8.6 mg DAILY PRN Administration Constipation Warfarin Sodium 5 mg 04/06/19 16:00 04/06/19 14:38 Coumadin PO 05/06/19 15:59 Not Given DAILY@1600 ZAHRA NPO Date Last Intake of Fluids: 04/07/19 Time Last Intake of Fluids: 18:00 Date Last Intake of Solids: 04/08/19 Time Last Intake of Solids: 20:00 Past Medical History Medical History Cholecystitis, chronic Sepsis (Acute 08/24/14) Atrial fibrillation (Chronic) Coronary artery disease (Chronic) Dyslipidemia (Chronic) Diabetes mellitus, type II (Chronic) Hypertension (Chronic) Stroke (Chronic) Difficult airway (Chronic) Diabetic neuropathy (Chronic) History of renal calculi (Chronic) Aortic stenosis (Chronic) "severe per echo 06/17/14" CHF (congestive heart failure) (Chronic) "LVEF 30-35% by echo 06/17/14" Ulcer of toe due to diabetes mellitus (Acute) Respiratory failure, acute Exercise / Class Metabolic Activity III < 4 Walking/Shop/Light housework Past Family History Family History Unknown Family history non-contributory Past Surgical History Surgical History Status post coronary artery bypass grafting (Chronic) Status post cataract extraction (Chronic) Past Anesthesia History No Hx of Anesthesia Complications and No Family Hx of Anesthesia Complications History of PONV No Hx of PONV and No Hx of Motion Sickness Social History Smoking Status: Never smoker Hx Alcohol Use: Yes Alcohol type: beer alcohol intake frequency: holidays/special occasions only Hx Substance Use: Yes substance use type: marijuana Physical Exam Vital Signs Last Vital Signs Temp 99.7 F H 04/09/19 12:52 Pulse 108 H 04/09/19 12:52 Resp 20 04/09/19 12:52 BP 113/88 04/09/19 12:52 Pulse Ox 96 04/09/19 12:52 ENMT Mouth: no dentition abnormality Thyromental Distance: > or= 3.5 Finger Breadths Mallampati Class: III Neck normal visual inspection Respiratory normal respiratory effort Auscultation: + diminished lung sounds Cardiovascular Rate/Rhythm: regular rate and regular rhythm Testing Laboratory Results 04/09/19 07:04 04/09/19 07:04 PT 14.1 Seconds (9.0-12.0) H 04/09/19 07:04 INR 1.4 (0.9-1.1) H 04/09/19 07:04 APTT 44.2 Seconds (21.0-31.0) H 04/05/19 20:47 Hemoglobin A1c 7.9 % (4.5-5.6) H 04/06/19 04:00 Urine Color Yellow 04/07/19 13:10 Urine Appearance Clear (Clear) 04/07/19 13:10 Urine pH 5.0 (4.5-7.5) 04/07/19 13:10 Ur Specific [place] 1.024 (1.000-1.030) 04/07/19 13:10 Urine Protein Trace (Negative) H 04/07/19 13:10 Urine Glucose (UA) Negative (Negative) 04/07/19 13:10 Urine Ketones Negative (Negative) 04/07/19 13:10 Urine Nitrite Negative (Negative) 04/07/19 13:10 Ur Leukocyte Esterase Negative (Negative) 04/07/19 13:10 Urine WBC (Auto) 1-5 /hpf (0-5) 04/07/19 13:10 Urine RBC (Auto) 10-30 /hpf (0-4) H 04/07/19 13:10 U Hyaline Cast (Auto) 0 /lpf (0-5) 04/07/19 13:10 U Epithel Cells (Auto) 10-20 /lpf (0-5) H 04/07/19 13:10 Urine Bacteria (Auto) Negative (Negative) 04/07/19 13:10 Blood Type A Positive 04/07/19 09:43 Antibody Screen NEGATIVE 04/07/19 09:43 04/06/19 13:30 Gram Stain - Final Pleural Fluid Aerobic and Anaerobic Culture - Preliminary Escherichia coli ESBL 04/07/19 08:33 Aerobic Blood Culture - Preliminary Blood No growth in Aerobic bottle after 48 hours. Anaerobic Blood Culture - Preliminary No growth in Anaerobic bottle after 48 hours. 04/07/19 08:44 Aerobic Blood Culture - Preliminary Blood No growth in Aerobic bottle after 48 hours. Anaerobic Blood Culture - Preliminary No growth in Anaerobic bottle after 48 hours. 04/08/19 08:28 Aerobic Blood Culture - Preliminary Blood No growth in Aerobic bottle after 24 hours. Anaerobic Blood Culture - Preliminary No growth in Anaerobic bottle after 24 hours. 04/08/19 08:38 Aerobic Blood Culture - Preliminary Blood No growth in Aerobic bottle after 24 hours. Anaerobic Blood Culture - Preliminary No growth in Anaerobic bottle after 24 hours. 04/05/19 20:47 Aerobic Blood Culture - Preliminary Blood No growth in Aerobic bottle after 48 hours. Anaerobic Blood Culture - Preliminary Coag neg staph not lugdunensis 04/05/19 20:47 Aerobic Blood Culture - Preliminary Blood No growth in Aerobic bottle after 48 hours. Anaerobic Blood Culture - Preliminary No growth in Anaerobic bottle after 48 hours. 04/06/19 13:30 Acid Fast Bacilli Smear - Final Pleural Fluid 04/09/19 04/09/19 04/09/19 12:47 11:58 11:07 POC Glucose 109 H 118 H 116 H 04/09/19 04/09/19 04/09/19 09:53 08:55 06:12 POC Glucose 112 H 105 H 101 H 04/09/19 04/09/19 04/09/19 04:05 02:59 02:08 POC Glucose 94 96 93 04/09/19 01:24 POC Glucose 102 H Electrocardiogram Date: 04/07/19 Atrial fibrillation, rate 97 bpm Right bundle branch block Inferior infarct (cited on or before 30-AUG-2014) Abnormal ECG When compared with ECG of 06-APR-2019 06:49, No significant change was found Confirmed by Mustapha Avila ([id number]) on 04/07/2019 11:27:58 PM Echocardiogram Date: 04/06/19 EF: 30-35% LV systolic function is moderate to severely reduced Other Testing Chest CT 04/07/19 IMPRESSION: 1. Cardiomegaly with evidence of congestive failure. 2. There is a loculated and minimally complex pleural collection at the left lung base with overlying pleural thickening as above with dense left basilar consolidation. The sterility of this collection cannot be assessed by CT. 3. There is a small to moderate layering right pleural effusion with associated atelectasis. 4. Cirrhotic liver morphology and trace perisplenic ascites. 5. There is mediastinal and possibly hilar adenopathy. 6. Additional findings as above.
[2019-04-09] MEDS ORDERED: ePHEDrine sulfate 50 MG/ML AMP IV PRN (13:14)
[2019-04-09] MEDS ORDERED: ONDANSETRON INJ 2 MG/ML 2 ML VIAL IV PRN (13:14)
[2019-04-09] MEDS ORDERED: ATROPINE SULFATE 0.1 MG/ML 10ML SYR IV PRN (13:14)
[2019-04-09] MEDS ORDERED: fentaNYL citrate 100 MCG/2 ML VIAL IV PRN (13:14)
--- NOTE | 2019-04-09 13:18 | Cardiology Progress Note ---
Date of Service April 09, 2019 Assessment & Plan (1) Sepsis: The patient is currently hemodynamically stable. He is being treated for a pneumonia and possible empyema. The patient is to have a VATS procedure at some time during this hospital admission. Currently he has chronic cardiac prob lems but he is stable. (2) Pneumonia: (3) Acute renal failure: (4) Atrial fibrillation: (5) Coronary artery disease: (6) Diabetes mellitus, type II: (7) Stroke: (8) S/P TAVR (transcatheter aortic valve replacement): (9) GI bleeding: The patient is going to the OR this afternoon for an EGD/ERCP. Subjective The patient is waiting to go to the OR for an EGD and possible ERCP. No current cardiac complaints. Review of Systems Review of Systems: All systems reviewed & are unremarkable except as noted in HPI & below Nothing additional to add Physical Exam Physical Exam: General: no acute distress and stated age Head: normocephalic, no masses, lesions, tenderness or abnormalities Eyes: conjunctiva are pink and non-injected, sclera clear Neck: supple, no adenopathy, no bruits, normal jugular venous pulse, no hepatojugular reflux Chest: normal shape and normal respiratory effort Lungs: clear to auscultation and percussion Cardiac Exam: - regular rate & rhythm, no murmurs gallops or rubs - normal S1, normal S2 Pulses: 2(+) throughout Abdomen: abdomen soft, non-tender, no abnormal masses and no hepatosplenomegaly Musculoskeletal: no gait disturbance, no joint inflammation, no deforming arthritis Extremities: no edema and no cyanosis Neuro: grossly normal exam Results & Data Vital Signs (Past 12 Hours) Vital Signs Temp Pulse Pulse Resp BP Pulse Ox Pulse Ox 04/09/19 12:52 37.6 C H 108 H 20 113/88 96 04/09/19 12:00 37.0 C 112 H 109 H 22 139/102 H 97 04/09/19 10:46 98 04/09/19 08:00 37.7 C H 112 H 107 H 20 112/76 98 98 04/09/19 06:00 122 H 22 106/72 99 04/09/19 05:00 37 C 111 H 20 88/60 L 98 04/09/19 04:00 113 H 20 100 04/09/19 03:00 116 H 22 101/42 L 98 04/09/19 02:00 114 H 23 111/54 L 99 Laboratory Results Laboratory Results - last 24 hr 04/08/19 04/08/19 04/08/19 14:49 15:50 16:51 WBC RBC Hgb Hct MCV MCH MCHC RDW Std Deviation RDW Coeff of Abi Plt Count MPV Immature Gran % (Auto) Neut % (Auto) Lymph % (Auto) [place] % (Auto) Eos % (Auto) Baso % (Auto) Immature Gran # (Auto) Neut # (Auto) Lymph # (Auto) [place] # (Auto) Eos # (Auto) Baso # (Auto) Absolute Nucleated RBC Nucleated RBC % (auto) PT INR Sodium Potassium Chloride Carbon Dioxide Anion Gap BUN Creatinine Est Cr Clr Drug Dosing Est GFR ( Amer) Est GFR (Non-Af Amer) BUN/Creatinine Ratio Glucose POC Glucose 206 H 186 H 163 H Calcium Phosphorus Magnesium Total Bilirubin AST ALT Alkaline Phosphatase Total Protein Albumin Globulin Albumin/Globulin Ratio 04/08/19 04/08/19 04/08/19 17:59 17:59 19:25 WBC RBC Hgb 8.9 L Hct 26.8 L MCV MCH MCHC RDW Std Deviation RDW Coeff of Abi Plt Count MPV Immature Gran % (Auto) Neut % (Auto) Lymph % (Auto) [place] % (Auto) Eos % (Auto) Baso % (Auto) Immature Gran # (Auto) Neut # (Auto) Lymph # (Auto) [place] # (Auto) Eos # (Auto) Baso # (Auto) Absolute Nucleated RBC Nucleated RBC % (auto) PT 15.1 H INR 1.5 H Sodium Potassium Chloride Carbon Dioxide Anion Gap BUN Creatinine Est Cr Clr Drug Dosing Est GFR ( Amer) Est GFR (Non-Af Amer) BUN/Creatinine Ratio Glucose POC Glucose 127 H Calcium Phosphorus Magnesium Total Bilirubin AST ALT Alkaline Phosphatase Total Protein Albumin Globulin Albumin/Globulin Ratio 04/08/19 04/08/19 04/08/19 21:03 23:35 23:51 WBC RBC Hgb Hct MCV MCH MCHC RDW Std Deviation RDW Coeff of Abi Plt Count MPV Immature Gran % (Auto) Neut % (Auto) Lymph % (Auto) [place] % (Auto) Eos % (Auto) Baso % (Auto) Immature Gran # (Auto) Neut # (Auto) Lymph # (Auto) [place] # (Auto) Eos # (Auto) Baso # (Auto) Absolute Nucleated RBC Nucleated RBC % (auto) PT INR Sodium Potassium Chloride Carbon Dioxide Anion Gap BUN Creatinine Est Cr Clr Drug Dosing Est GFR ( Amer) Est GFR (Non-Af Amer) BUN/Creatinine Ratio Glucose POC Glucose 105 H 71 66 L* Calcium Phosphorus Magnesium Total Bilirubin AST ALT Alkaline Phosphatase Total Protein Albumin Globulin Albumin/Globulin Ratio 04/09/19 04/09/19 04/09/19 00:09 01:24 02:08 WBC RBC Hgb Hct MCV MCH MCHC RDW Std Deviation RDW Coeff of Abi Plt Count MPV Immature Gran % (Auto) Neut % (Auto) Lymph % (Auto) [place] % (Auto) Eos % (Auto) Baso % (Auto) Immature Gran # (Auto) Neut # (Auto) Lymph # (Auto) [place] # (Auto) Eos # (Auto) Baso # (Auto) Absolute Nucleated RBC Nucleated RBC % (auto) PT INR Sodium Potassium Chloride Carbon Dioxide Anion Gap BUN Creatinine Est Cr Clr Drug Dosing Est GFR ( Amer) Est GFR (Non-Af Amer) BUN/Creatinine Ratio Glucose POC Glucose 171 H 102 H 93 Calcium Phosphorus Magnesium Total Bilirubin AST ALT Alkaline Phosphatase Total Protein Albumin Globulin Albumin/Globulin Ratio 04/09/19 04/09/19 04/09/19 02:59 04:05 06:12 WBC RBC Hgb Hct MCV MCH MCHC RDW Std Deviation RDW Coeff of Abi Plt Count MPV Immature Gran % (Auto) Neut % (Auto) Lymph % (Auto) [place] % (Auto) Eos % (Auto) Baso % (Auto) Immature Gran # (Auto) Neut # (Auto) Lymph # (Auto) [place] # (Auto) Eos # (Auto) Baso # (Auto) Absolute Nucleated RBC Nucleated RBC % (auto) PT INR Sodium Potassium Chloride Carbon Dioxide Anion Gap BUN Creatinine Est Cr Clr Drug Dosing Est GFR ( Amer) Est GFR (Non-Af Amer) BUN/Creatinine Ratio Glucose POC Glucose 96 94 101 H Calcium Phosphorus Magnesium Total Bilirubin AST ALT Alkaline Phosphatase Total Protein Albumin Globulin Albumin/Globulin Ratio 04/09/19 04/09/19 04/09/19 07:04 07:04 07:04 WBC 16.36 H RBC 2.95 L Hgb 8.0 L Hct 24.2 L MCV 82.0 MCH 27.1 MCHC 33.1 RDW Std Deviation 51.9 H RDW Coeff of Abi 17.3 H Plt Count 209 MPV 10.3 Immature Gran % (Auto) 0.5 Neut % (Auto) 88.1 Lymph % (Auto) 5.3 [place] % (Auto) 5.4 Eos % (Auto) 0.6 Baso % (Auto) 0.1 Immature Gran # (Auto) 0.08 H Neut # (Auto) 14.42 H Lymph # (Auto) 0.86 L [place] # (Auto) 0.89 H Eos # (Auto) 0.10 Baso # (Auto) 0.01 Absolute Nucleated RBC 0.04 H Nucleated RBC % (auto) 0.2 PT 14.1 H INR 1.4 H Sodium 145 Potassium 3.9 Chloride 116 H Carbon Dioxide 22 Anion Gap 7.0 BUN 49 H Creatinine 1.02 Est Cr Clr Drug Dosing 75.4 Est GFR ( Amer) 83.5 Est GFR (Non-Af Amer) 72.1 BUN/Creatinine Ratio 48.0 H Glucose 95 POC Glucose Calcium 8.3 L Phosphorus 2.4 L Magnesium 2.6 H Total Bilirubin 1.7 H AST 30 ALT 25 Alkaline Phosphatase 150 H Total Protein 6.4 Albumin 1.8 L Globulin 4.6 H Albumin/Globulin Ratio 0.4 L 04/09/19 04/09/19 04/09/19 08:55 09:53 11:07 WBC RBC Hgb Hct MCV MCH MCHC RDW Std Deviation RDW Coeff of Abi Plt Count MPV Immature Gran % (Auto) Neut % (Auto) Lymph % (Auto) [place] % (Auto) Eos % (Auto) Baso % (Auto) Immature Gran # (Auto) Neut # (Auto) Lymph # (Auto) [place] # (Auto) Eos # (Auto) Baso # (Auto) Absolute Nucleated RBC Nucleated RBC % (auto) PT INR Sodium Potassium Chloride Carbon Dioxide Anion Gap BUN Creatinine Est Cr Clr Drug Dosing Est GFR ( Amer) Est GFR (Non-Af Amer) BUN/Creatinine Ratio Glucose POC Glucose 105 H 112 H 116 H Calcium Phosphorus Magnesium Total Bilirubin AST ALT Alkaline Phosphatase Total Protein Albumin Globulin Albumin/Globulin Ratio 04/09/19 04/09/19 11:58 12:47 WBC RBC Hgb Hct MCV MCH MCHC RDW Std Deviation RDW Coeff of Abi Plt Count MPV Immature Gran % (Auto) Neut % (Auto) Lymph % (Auto) [place] % (Auto) Eos % (Auto) Baso % (Auto) Immature Gran # (Auto) Neut # (Auto) Lymph # (Auto) [place] # (Auto) Eos # (Auto) Baso # (Auto) Absolute Nucleated RBC Nucleated RBC % (auto) PT INR Sodium Potassium Chloride Carbon Dioxide Anion Gap BUN Creatinine Est Cr Clr Drug Dosing Est GFR ( Amer) Est GFR (Non-Af Amer) BUN/Creatinine Ratio Glucose POC Glucose 118 H 109 H Calcium Phosphorus Magnesium Total Bilirubin AST ALT Alkaline Phosphatase Total Protein Albumin Globulin Albumin/Globulin Ratio Medications Administered Current Inpatient Medications Acetaminophen (Tylenol) 500 mg PO Q4 PRN PRN Reason: Fever Or Pain Stop: 05/05/19 23:15 Last Admin: 04/07/19 22:07 Dose: 500 mg Documented by: Aspirin (Ecotrin Ectab) 81 mg PO DAILY [facility] Stop: 05/06/19 08:59 Last Admin: 04/07/19 09:37 Dose: 81 mg Documented by: Atorvastatin Calcium (Lipitor) 40 mg PO HS [facility]AHRA Stop: 05/06/19 20:59 Last Admin: 04/08/19 20:44 Dose: 40 mg Documented by: Atropine Sulfate (Atropine Sulfate) 0.5 mg IV Q1M PRN PRN Reason: PACU Use-HR<40 &/or Bradycardi Stop: 04/09/19 18:14 Buspirone HCl (Buspar) 2.5 mg PO TID PRN PRN Reason: Anxiety Stop: 05/06/19 01:42 Last Admin: 04/07/19 09:35 Dose: 2.5 mg Documented by: Dextrose (Dextrose 50%) 25 - 50 ml IV UD PRN; Protocol PRN Reason: Hypoglycemia Protocol Stop: 05/05/19 23:15 Last Admin: 04/08/19 23:57 Dose: 50 ml Documented by: Docusate Sodium (Colace) 100 mg PO BID PRN PRN Reason: Constipation Stop: 05/05/19 23:15 Last Admin: 04/06/19 08:30 Dose: 100 mg Documented by: Ephedrine Sulfate (Ephedrine Sulfate) 5 mg IV Q5M PRN PRN Reason: PACU Use Only-SBP<90 mmHg Stop: 04/09/19 18:14 Fentanyl Citrate (Fentanyl Citrate) 25 mcg IV Q5M PRN PRN Reason: PACU Use Only-Pain Stop: 04/09/19 18:14 Gabapentin (Neurontin) 100 mg PO TID [facility] Stop: 05/06/19 08:59 Last Admin: 04/09/19 08:05 Dose: 100 mg Documented by: Glucagon (Glucagen) 1 mg SQ UD PRN; Protocol PRN Reason: Hypoglycemia Protocol Stop: 05/05/19 23:15 Glucose (Glucose 40%) 15 - 30 gm PO UD PRN; Protocol PRN Reason: Hypoglycemia Protocol Stop: 05/05/19 23:15 Glucose (Dex4 Glucose) 4 - 8 tabs PO UD PRN; Protocol PRN Reason: Hypoglycemia Protocol Stop: 05/05/19 23:15 Ertapenem 1,000 mg/ Sodium (Chloride) 60 mls @ 100 mls/hr IV Q24H [facility] Stop: 04/18/19 10:59 Last Infusion: 04/09/19 12:25 Dose: Infused Documented by: Pantoprazole Sodium 40 mg/ (Dextrose) 100 mls @ 20 mls/hr IV Q5H [facility] Stop: 05/08/19 09:29 Last Admin: 04/09/19 08:44 Dose: 20 mls/hr Documented by: Lorazepam (Ativan) 0.5 mg in 1 mls @ 1 mls/min IV ONE PRN PRN Reason: Anxiety Stop: 05/08/19 09:05 Last Admin: 04/08/19 20:51 Dose: 1 mls/min Documented by: Insulin Human Regular 250 (units/ Sodium Chloride) 250 mls @ 1 mls/hr IV .Q24H [facility]; Protocol Stop: 05/08/19 13:59 Last Titration: 04/09/19 11:11 Dose: 1 units/hr, 1 mls/hr Documented by: Insulin Aspart (Novolog Flexpen) 0 units SC Q4 [facility] Stop: 05/08/19 15:59 Last Admin: 04/09/19 08:19 Dose: Not Given Documented by: Insulin Aspart (Novolog Flexpen) 0 units SC ACHS [facility] Stop: 05/08/19 16:29 Last Admin: 04/09/19 11:12 Dose: Not Given Documented by: Insulin Glargine (Lantus Solostar Pen) 20 units SC BID [facility] Stop: 05/07/19 08:59 Last Admin: 04/08/19 20:47 Dose: 20 units Documented by: Magnesium Oxide (Mag-Ox) 400 mg PO QAM [facility] Stop: 05/06/19 08:59 Last Admin: 04/07/19 09:33 Dose: Not Given Documented by: Metoprolol Tartrate (Lopressor) 25 mg PO BID [facility] Stop: 05/09/19 08:59 Last Admin: 04/09/19 08:44 Dose: 25 mg Documented by: Miscellaneous (Carbohydrates For Hypoglycemia) 15 - 30 gm PO UD PRN PRN Reason: Hypoglycemia Treatment Stop: 05/05/19 23:15 Miscellaneous Information (Consult Glycemic Management Pharmacy) 1 ea N/A UD PRN; Protocol PRN Reason: Consult Stop: 05/05/19 23:47 Ondansetron HCl (Zofran) 4 mg IV ONCE PRN PRN Reason: PACU Use Only-Nausea/Vomiting Stop: 04/09/19 18:14 Polyethylene Glycol (Miralax Powder Packet) 17 gm PO DAILY PRN PRN Reason: Constipation Stop: 05/05/19 23:15 Sennosides (Senokot) 8.6 mg PO DAILY PRN PRN Reason: Constipation Stop: 05/05/19 23:15 Last Admin: 04/06/19 08:30 Dose: 8.6 mg Documented by: Warfarin Sodium (Coumadin) 5 mg PO DAILY@1600 [facility] Stop: 05/06/19 15:59 Last Admin: 04/06/19 14:38 Dose: Not Given Documented by: (1) Sepsis Sepsis type: sepsis due to unspecified organism Qualified Code(s): A41.9 - Sepsis, unspecified organism (2) Pneumonia Laterality: left Lung location: lower lobe of lung Pneumonia type: due to unspecified organism Qualified Code(s): J18.1 - Lobar pneumonia, unspecified organism
[2019-04-09] MEDS ORDERED: INDOMETHACIN 50 MG SUPP PR ONE (13:41)
--- NOTE | 2019-04-09 13:48 | GI REPORT ---
Patient Name: Domenico Bustillo Procedure Date: 04/09/2019 1:41 PM Date of : 1945 Admit Type: Inpatient Age: 74 Gender: Male Attending MD: Royce Madera DO Procedure: Upper GI endoscopy Providers: Royce Madera DO Referring MD: Alli Samuel Indications: Melena Medicines: General Anesthesia Complications: No immediate complications. Estimated blood loss: Minimal. Estimated Blood Loss: Estimated blood loss was minimal. Procedure: Pre-Anesthesia Assessment: - Prior to the procedure, a History and Physical was performed, and patient medications, allergies and sensitivities were reviewed. The patient's tolerance of previous anesthesia was reviewed. - The risks and benefits of the procedure and the sedation options and risks were discussed with the patient. All questions were answered and informed consent was obtained. - Patient identification and proposed procedure were verified prior to the procedure by the physician, the nurse and the voice professor. The procedure was verified in the procedure room. - Pre-procedure physical examination revealed no contraindications to sedation. - ASA Grade Assessment: IV - A patient with severe systemic disease that is a constant threat to life. - After reviewing the risks and benefits, the patient was deemed in satisfactory condition to undergo the procedure. - The anesthesia plan was to use general anesthesia. - Immediately prior to administration of medications, the patient was re-assessed for adequacy to receive sedatives. - The heart rate, respiratory rate, oxygen saturations, blood pressure, adequacy of pulmonary ventilation, and response to care were monitored throughout the procedure. - The physical status of the patient was re-assessed after the procedure. After obtaining informed consent, the endoscope was passed under direct vision. Throughout the procedure, the patient's blood pressure, pulse, and oxygen saturations were monitored continuously. The Endoscope was introduced through the mouth, and advanced to the third part of duodenum. The upper GI endoscopy was accomplished without difficulty. The patient tolerated the procedure well. Findings: The examined esophagus was normal. The Z-line was regular and was found 43 cm from the incisors. The entire examined stomach was normal. Localized mild inflammation characterized by erythema and granularity was found in the duodenal bulb. The second portion of the duodenum and third portion of the duodenum were normal. Impression: - Normal esophagus. - Z-line regular, 43 cm from the incisors. - Normal stomach. - Duodenitis. - Normal second portion of the duodenum and third portion of the duodenum. - No specimens collected. Recommendation: - Perform an upper endoscopic ultrasound (UEUS) today. - No evidence of upper GI bleeding seen today Royce Madera D.O. Royce Madera, 04/09/2019 1:47:47 PM This report has been signed electronically. Note Initiated On: 04/09/2019 1:41 PM Number of Addenda: 0 I attest to the content of the Intraoperative Record and orders documented therein, exceptions below {[id number]}
--- NOTE | 2019-04-09 14:05 | GI REPORT ---
Patient Name: Domenico Bustillo Procedure Date: 04/09/2019 1:47 PM Date of : 1945 Admit Type: Inpatient Age: 74 Gender: Male Attending MD: Royce Madera DO Procedure: Upper EUS Providers: Royce Madera DO Referring MD: Alli Samuel Indications: Elevated liver enzymes, Suspected choledocholithiasis Medicines: Monitored Anesthesia Care Complications: No immediate complications. Estimated blood loss: Minimal. Estimated Blood Loss: Estimated blood loss was minimal. Procedure: Pre-Anesthesia Assessment: - Prior to the procedure, a History and Physical was performed, and patient medications, allergies and sensitivities were reviewed. The patient's tolerance of previous anesthesia was reviewed. - The risks and benefits of the procedure and the sedation options and risks were discussed with the patient. All questions were answered and informed consent was obtained. - Patient identification and proposed procedure were verified prior to the procedure by the physician, the nurse and the sql ssis developer. The procedure was verified in the procedure room. - Pre-procedure physical examination revealed no contraindications to sedation. - ASA Grade Assessment: IV - A patient with severe systemic disease that is a constant threat to life. - After reviewing the risks and benefits, the patient was deemed in satisfactory condition to undergo the procedure. - The anesthesia plan was to use monitored anesthesia care (MAC). - Immediately prior to administration of medications, the patient was re-assessed for adequacy to receive sedatives. - The heart rate, respiratory rate, oxygen saturations, blood pressure, adequacy of pulmonary ventilation, and response to care were monitored throughout the procedure. - The physical status of the patient was re-assessed after the procedure. After obtaining informed consent, the endoscope was passed under direct vision. Throughout the procedure, the patient's blood pressure, pulse, and oxygen saturations were monitored continuously. The Endosonoscope was introduced through the mouth, and advanced to the second part of duodenum. The upper EUS was accomplished without difficulty. The patient tolerated the procedure well. Findings: ENDOSONOGRAPHIC FINDING: : Two stones were visualized endosonographically in the common bile duct. They were hyperechoic and characterized by shadowing. Multiple stones /sludge was visualized endosonographically in the gallbladder. They were hyperechoic and characterized by shadowing. There was no sign of significant endosonographic abnormality in the pancreatic body, pancreatic tail and main pancreatic duct. No masses, the pancreatic duct was thin in caliber. The pancreatic head was not well seen today No lymphadenopathy seen. There was no sign of significant endosonographic abnormality in the left adrenal gland. No adrenal gland enlargement was identified. A moderate amount of fluid, visualized as a hypoechoic structure, was found in the periduodenal peritoneal space. There was no sign of significant endosonographic abnormality in the left lobe of the liver. Homogeneous parenchyma and no focal pathology were identified. Impression: - Two stones were visualized endosonographically in the common bile duct. - Multiple stones were visualized endosonographically in the gallbladder. - There was no sign of significant pathology in the pancreatic body, pancreatic tail and main pancreatic duct. - Endosonographic images of the left adrenal gland were unremarkable. - Ascites was found on endosonographic examination of the peritoneal cavity. - No specimens collected. Recommendation: - Perform an upper endoscopic ultrasound (UEUS) today. Royce Madera D.O. Royce Madera, 04/09/2019 2:04:47 PM This report has been signed electronically. Note Initiated On: 04/09/2019 1:47 PM Number of Addenda: 0 I attest to the content of the Intraoperative Record and orders documented therein, exceptions below {[id number]}
[2019-04-09] MEDS ORDERED: CISATRACURIUM BESYLATE IV SOLN 2 MG/ML 10 ML VIAL IV ONE (14:22)
[2019-04-09] MEDS ORDERED: VASOPRESSIN 20 UNIT/ML VIAL ONE (14:22)
[2019-04-09] MEDS ORDERED: ESMOLOL HCL INJ 10 MG/ML 10ML VIAL IV ONE (14:22)
[2019-04-09] MEDS ORDERED: PHENYLEPHRINE 100MCG/ML 5ML SYR ONE (14:22)
--- NOTE | 2019-04-09 14:42 | GI REPORT ---
Patient Name: Domenico Bustillo Procedure Date: 04/09/2019 2:05 PM Date of : 1945 Admit Type: Inpatient Age: 74 Gender: Male Attending MD: Royce Madera DO Procedure: ERCP Providers: Royce Madera DO Referring MD: Alli Samuel Indications: For therapy of bile duct stone(s), Suspected ascending cholangitis Medicines: General Anesthesia Complications: No immediate complications. Estimated blood loss: Minimal. Estimated Blood Loss: Estimated blood loss was minimal. Procedure: Pre-Anesthesia Assessment: - Prior to the procedure, a History and Physical was performed, and patient medications, allergies and sensitivities were reviewed. The patient's tolerance of previous anesthesia was reviewed. - The risks and benefits of the procedure and the sedation options and risks were discussed with the patient. All questions were answered and informed consent was obtained. - Patient identification and proposed procedure were verified prior to the procedure by the physician, the nurse and the ancillary services manager therapy. The procedure was verified in the procedure room. - Pre-procedure physical examination revealed no contraindications to sedation. - ASA Grade Assessment: IV - A patient with severe systemic disease that is a constant threat to life. - After reviewing the risks and benefits, the patient was deemed in satisfactory condition to undergo the procedure. - The anesthesia plan was to use general anesthesia. - Immediately prior to administration of medications, the patient was re-assessed for adequacy to receive sedatives. - The heart rate, respiratory rate, oxygen saturations, blood pressure, adequacy of pulmonary ventilation, and response to care were monitored throughout the procedure. - The physical status of the patient was re-assessed after the procedure. After obtaining informed consent, the scope was passed under direct vision. Throughout the procedure, the patient's blood pressure, pulse, and oxygen saturations were monitored continuously. The Scope was introduced through the mouth, and advanced to the duodenum and used to inject contrast into the bile duct and ventral pancreatic duct. The patient tolerated the procedure well. The ERCP was somewhat difficult due to challenging cannulation because of papillary stenosis. Successful completion of the procedure was aided by performing the maneuvers documented (below) in this report. Findings: The professional sports scout film was normal. The esophagus was successfully intubated under direct vision without detailed examination of the pharynx, larynx, and associated structures, and upper GI tract. The upper GI tract was grossly normal. The major papilla was congested. The ventral pancreatic duct was inadvertently cannulated with the short-nosed traction sphincterotome and 0.035 in angled acrobat 2 guidewire without any complications. This was left in place to aid in biliary cannulation. The bile duct was deeply cannulated with the short-nosed traction sphincterotome and 0.025 in Angled Acrobat 2 guidewire. Contrast was injected. I personally interpreted the bile duct images. Contrast extended to the entire biliary tree. The lower third of the main bile duct contained filling defect(s) thought to be a stone. Biliary sphincterotomy was made with a monofilament Fusion OMNI sphincterotome using ERBE electrocautery. There was no post-sphincterotomy bleeding. One 5 Fr by 7 cm pancreatic stent with a full external pigtail and no internal flaps was placed 6.5 cm into the ventral pancreatic duct. Clear fluid flowed through the stent. The stent was in good position. To discover objects, the biliary tree was swept with an 8.5 to 15 mm balloon starting at the bifurcation. Two stones were removed. No stones remained. Pus was swept from the duct. One 10 Fr by 7 cm biliary stent with a single external flap and a single internal flap was placed 7 cm into the common bile duct. Bile flowed through the stent. The stent was in good position. The total fluoroscopy exposure time was 1 minute and 23 seconds. Indomethacin 100 mg was given via suppository to decrease the risk of post-ERCP pancreatitis (PEP). The endoscope was withdrawn from the patient. Impression: - The major papilla appeared congested. - Choledocholithiasis was found. Complete removal was accomplished by biliary sphincterotomy and balloon extraction. - One pancreatic stent was placed into the ventral pancreatic duct. - The biliary tree was swept and pus was found. - One biliary stent was placed into the common bile duct. - Indomethacin given to decrease risk of post-ERCP pancreatitis. Recommendation: - Avoid aspirin and nonsteroidal anti-inflammatory medicines for 1 week. - Return patient to ICU for ongoing care. - Use broad spectrum antibiotics for 2 weeks. - Repeat ERCP in 6 weeks to remove stent. Royce Madera D.O. Royce Madera DO 04/09/2019 2:41:28 PM This report has been signed electronically. Note Initiated On: 04/09/2019 2:05 PM Number of Addenda: 0 I attest to the content of the Intraoperative Record and orders documented therein, exceptions below {[id number]}
--- NOTE | 2019-04-09 14:43 | Post Operative Brief Note ---
Immediate Post Op Note v1 Date of Surgery April 09, 2019 Pre & Post Diagnosis Operation Date: 04/09/19 07:00 Pre-Op Diagnosis: anemia, melena Post-Op Diagnosis: melena, gallstones, cholangitis Operation Date: 04/10/19 09:35 <No data on this case meets the specified criteria> Procedure Operation Date: 04/09/19 07:00 Actual Procedures p Endoscopic Ultrasonography Upper(Not Applicable) - Royce ponce Esophagogastroduodenoscopy(Not Applicable) - Royce ponce Endoscopic Retrograde Cholangiopancreatogram, biliary / pancreatic stent placement (Not Applicable) - Royce Madera Operation Date: 04/10/19 09:35 <No data on this case meets the specified criteria> Surgeon Royce Madera Surveillance Agent none Estimated Blood Loss 0 Findings Consistent with Post-Op Diagnosis
--- NOTE | 2019-04-09 14:58 | Hospitalist Progress Note ---
Date of Service April 09, 2019 Assessment & Plan (1) GI bleeding: Has been having GI bleed with melena and bloody stool at times GI consulted On IV PPI and monitor hemoglobin Status post EGD-mild duodenitis but no evidence of active bleeding anywhere Status post ERCP-choledocholithiasis, extraction of stones and pus, stent placement and pancreatic duct No NSAID use and or aspirin for 5 days (2) Cholecystitis: CT of the abdomen did show cholelithiasis and acute cholecystitis MRI scan supported cholecystitis Appreciate surgery input and recommendation Not for acute surgery at this time Continue with conservative management No new symptoms (3) Septic shock: Septic shock secondary to community acquired pneumonia. Continues current treatment in the ICU. Has been on intravenous Zosyn and doxy has been stopped stopped. Repeat CT chest with persistent empyema. Thoracic surgery consulted for definitive treatment down the line Likely to have thoracentesis tomorrow (4) Pneumonia: Chronic respiratory failure with 2 L nasal cannula. Continue treatment as above for pneumonia. Likely has left pleural effusion with empyema Thoracic surgery has been consulted-thoracotomy and tube placement has been on hold now (5) S/P TAVR (transcatheter aortic valve replacement): No acute issues Appreciate cardiology and input and recommendation Denies any acute cardiac symptoms (6) Diabetes mellitus, type II: off Insulin drip and is being continued on basal/bolus therapy, management per ICU. (7) Coronary artery disease: Medical management with aspirin, Lipitor. Losartan on hold in setting of MARISA. Toprol-XL on hold. Patient has EF 35% and is also on spironolactone which is not being given at this time. Cardiology following. (8) Ischemic cardiomyopathy: As above. Patient is declining defibrillator placement (9) Atrial fibrillation: Continue Coumadin, Toprol on hold. Hemodynamic management per ICU. (10) Acute kidney injury: Likely secondary to septic shock. Continue IV fluids, avoid nephrotoxic substances. Hold losartan. Kidney function remains stable (11) DVT (deep venous thrombosis): Therapeutic on Coumadin Full code Disposition-continue ICU management Subjective 04/08 The patient was seen and examined in ICU Patient is a 74-year-old male with complex medical history with history of CHF with EF 25 to 30%, chronic atrial fibrillation on Coumadin, diabetes mellitus on insulin therapy, coronary artery disease S/P CABG, history of aortic valve stenosis S/P TAVR, CVA, ischemic cardiomyopathy, spinal stenosis, dyslipidemia, CKD III, carotid artery stenosis, hypertension and other problems presents with history of worsening shortness of breath, cough, generalized weakness, decreased appetite, fever and chills, increased leg swelling. Patient states he has chronic cough which has been gradually worsening since last 2 days prior to admission. Complains to have abdominal discomfort and generally unwell No significant pain and/or distress at rest 04/09 The patient was seen and examined in ICU He remains weak and lethargic Still complains of left sided abdominal pain without nausea or vomiting Denies any fever and/or chills Review of Systems Review of Systems: All systems reviewed and are unremarkable except as noted below Constitutional: + weakness and + anorexia Gastrointestinal: + bloating and + melena Neurologic: + generalized weakness Physical Exam Physical Exam: Lying in bed with moderate distress Constitutional: well developed, + ill appearing, + frail appearing, well groomed, cooperative and comfortable Eyes: PERRL, conjunctivae normal, anicteric sclerae ENMT: external ear and nose normal, oropharynx normal Neck: trachea midline, no thyromegaly Respiratory: normal respiratory effort; no respiratory distress and does not use accessory muscles Auscultation: + diminished lung sounds (Diminished L si de ) Cardiovascular: Rate/Rhythm: regular rate and regular rhythm Heart Sounds: no murmur Gastrointestinal (Abdomen): Inspection/Auscultation: + abdomen distended Percussion/Palpation: + abdomen tender (Left-sided tenderness) and abdomen soft; no guarding Skin: no rashes, warm and dry no jaundice Neurologic: Motor/Sensory: no asterixis Generally weak Psychiatric: A+Ox3, euthymic affect Lymphatic: no cervical or axillary lymphadenopathy + lymphedema (trace bilateral LE edema ) Results & Data Vital Signs (Past 12 Hours) Vital Signs Temp Pulse Pulse Resp BP Pulse Ox Pulse Ox 04/09/19 12:52 37.6 C H 108 H 20 113/88 96 04/09/19 12:00 37.0 C 112 H 109 H 22 139/102 H 97 04/09/19 10:46 98 04/09/19 08:00 37.7 C H 112 H 107 H 20 112/76 98 98 04/09/19 06:00 122 H 22 106/72 99 04/09/19 05:00 37 C 111 H 20 88/60 L 98 04/09/19 04:00 113 H 20 100 04/09/19 03:00 116 H 22 101/42 L 98 Laboratory Results Short CBC 04/08/19 04/09/19 Range/Units 17:59 07:04 WBC 16.36 H (4.8-10.8) K/uL Hgb 8.9 L 8.0 L (14.0-18.0) g/dL Hct 26.8 L 24.2 L (42-52) % Plt Count 209 (130-400) K/uL BMP 04/09/19 07:04 Sodium 145 Potassium 3.9 Chloride 116 H Carbon Dioxide 22 BUN 49 H Creatinine 1.02 Glucose 95 Calcium 8.3 L Liver Function 04/09/19 Range/Units 07:04 Total Bilirubin 1.7 H (0.2-1) mg/dl AST 30 (15-37) U/L ALT 25 (12-78) U/L Alkaline Phosphatase 150 H (45-117) U/L Albumin 1.8 L (3.4-5.0) gm/dl Medications Administered Current Inpatient Medications Acetaminophen (Tylenol) 500 mg PO Q4 PRN PRN Reason: Fever Or Pain Stop: 05/05/19 23:15 Last Admin: 04/07/19 22:07 Dose: 500 mg Documented by: Aspirin (Ecotrin Ectab) 81 mg PO DAILY ZAHRA Stop: 05/06/19 08:59 Last Admin: 04/07/19 09:37 Dose: 81 mg Documented by: Atorvastatin Calcium (Lipitor) 40 mg PO HS ZAHRA Stop: 05/06/19 20:59 Last Admin: 04/08/19 20:44 Dose: 40 mg Documented by: Atropine Sulfate (Atropine Sulfate) 0.5 mg IV Q1M PRN PRN Reason: PACU Use-HR<40 &/or Bradycardi Stop: 04/09/19 18:14 Buspirone HCl (Buspar) 2.5 mg PO TID PRN PRN Reason: Anxiety Stop: 05/06/19 01:42 Last Admin: 04/07/19 09:35 Dose: 2.5 mg Documented by: Dextrose (Dextrose 50%) 25 - 50 ml IV UD PRN; Protocol PRN Reason: Hypoglycemia Protocol Stop: 05/05/19 23:15 Last Admin: 04/08/19 23:57 Dose: 50 ml Documented by: Docusate Sodium (Colace) 100 mg PO BID PRN PRN Reason: Constipation Stop: 05/05/19 23:15 Last Admin: 04/06/19 08:30 Dose: 100 mg Documented by: Ephedrine Sulfate (Ephedrine Sulfate) 5 mg IV Q5M PRN PRN Reason: PACU Use Only-SBP<90 mmHg Stop: 04/09/19 18:14 Fentanyl Citrate (Fentanyl Citrate) 25 mcg IV Q5M PRN PRN Reason: PACU Use Only-Pain Stop: 04/09/19 18:14 Gabapentin (Neurontin) 100 mg PO TID ZAHRA Stop: 05/06/19 08:59 Last Admin: 04/09/19 08:05 Dose: 100 mg Documented by: Glucagon (Glucagen) 1 mg SQ UD PRN; Protocol PRN Reason: Hypoglycemia Protocol Stop: 05/05/19 23:15 Glucose (Glucose 40%) 15 - 30 gm PO UD PRN; Protocol PRN Reason: Hypoglycemia Protocol Stop: 05/05/19 23:15 Glucose (Dex4 Glucose) 4 - 8 tabs PO UD PRN; Protocol PRN Reason: Hypoglycemia Protocol Stop: 05/05/19 23:15 Ertapenem 1,000 mg/ Sodium (Chloride) 60 mls @ 100 mls/hr IV Q24H [facility] [place] Stop: 04/18/19 10:59 Last Infusion: 04/09/19 12:25 Dose: Infused Documented by: Pantoprazole Sodium 40 mg/ (Dextrose) 100 mls @ 20 mls/hr IV Q5H [facility]AHRA Stop: 05/08/19 09:29 Last Admin: 04/09/19 08:44 Dose: 20 mls/hr Documented by: Lorazepam (Ativan) 0.5 mg in 1 mls @ 1 mls/min IV ONE PRN PRN Reason: Anxiety Stop: 05/08/19 09:05 Last Admin: 04/08/19 20:51 Dose: 1 mls/min Documented by: Insulin Human Regular 250 (units/ Sodium Chloride) 250 mls @ 0.8 mls/hr IV .Q24H [facility] [place]; Protocol Stop: 05/08/19 13:59 Last Titration: 04/09/19 13:00 Dose: 0.8 units/hr, 0.8 mls/hr Documented by: Insulin Aspart (Novolog Flexpen) 0 units SC Q4 [facility] [place] Stop: 05/08/19 15:59 Last Admin: 04/09/19 08:19 Dose: Not Given Documented by: Insulin Aspart (Novolog Flexpen) 0 units SC ACHS [facility] [place] Stop: 05/08/19 16:29 Last Admin: 04/09/19 11:12 Dose: Not Given Documented by: Insulin Glargine (Lantus Solostar Pen) 20 units SC BID [facility] [place] Stop: 05/07/19 08:59 Last Admin: 04/08/19 20:47 Dose: 20 units Documented by: Magnesium Oxide (Mag-Ox) 400 mg PO QAM [facility] [place] Stop: 05/06/19 08:59 Last Admin: 04/07/19 09:33 Dose: Not Given Documented by: Metoprolol Tartrate (Lopressor) 25 mg PO BID [facility] [place] Stop: 05/09/19 08:59 Last Admin: 04/09/19 08:44 Dose: 25 mg Documented by: Miscellaneous (Carbohydrates For Hypoglycemia) 15 - 30 gm PO UD PRN PRN Reason: Hypoglycemia Treatment Stop: 05/05/19 23:15 Miscellaneous Information (Consult Glycemic Management Pharmacy) 1 ea N/A UD PRN; Protocol PRN Reason: Consult Stop: 05/05/19 23:47 Ondansetron HCl (Zofran) 4 mg IV ONCE PRN PRN Reason: PACU Use Only-Nausea/Vomiting Stop: 04/09/19 18:14 Pantoprazole Sodium (Protonix) 40 mg PO QAM [facility] [place] Stop: 05/10/19 08:59 Polyethylene Glycol (Miralax Powder Packet) 17 gm PO DAILY PRN PRN Reason: Constipation Stop: 05/05/19 23:15 Sennosides (Senokot) 8.6 mg PO DAILY PRN PRN Reason: Constipation Stop: 05/05/19 23:15 Last Admin: 04/06/19 08:30 Dose: 8.6 mg Documented by: Warfarin Sodium (Coumadin) 5 mg PO DAILY@1600 [facility] [place] Stop: 05/06/19 15:59 Last Admin: 04/06/19 14:38 Dose: Not Given Documented by:
--- NOTE | 2019-04-09 14:59 | Fluoroscopy Report ---
[place] ERCP biliary ductal CLINICAL HISTORY: CHECK DUCTS COMPARISON STUDY: MRCP and CT of the abdomen and pelvis April 08, 2019. FLUOROSCOPY TIME: 1 minute and 24 seconds. FLUOROSCOPIC IMAGES: 11. FINDINGS: These images demonstrate cannulation of the common bile duct. A wire within the main pancre atic duct is also noted. Filling defects within the gallbladder reflect gallstones. There is no bilia ry ductal dilatation. A suspected balloon sweep through the common bile duct was performed. IMPRESSION: Fluoroscopic images from ERCP, as described above. Electronically signed by: Walter Luciano M.D. 04/09/2019 2:58 PM
--- NOTE | 2019-04-09 15:16 | Anesthesiology Progress Note ---
Date of Service April 09, 2019 Anesthesia Post Procedure Vital Signs Vital Signs: Temp Pulse Pulse Resp BP BP BP 04/09/19 15:06 125 H 29 H 114/68 04/09/19 15:01 101.1 F H 124 H 31 H 04/09/19 12:52 99.7 F H 108 H 20 113/88 04/09/19 12:00 98.6 F 112 H 109 H 22 139/102 H 04/09/19 10:46 04/09/19 08:00 99.9 F H 112 H 107 H 20 112/76 04/09/19 06:00 122 H 22 106/72 04/09/19 05:00 98.6 F 111 H 20 88/60 L 04/09/19 04:00 113 H 20 04/09/19 03:00 116 H 22 101/42 L 04/09/19 02:00 114 H 23 111/54 L 04/09/19 01:00 110 H 22 93/52 L 04/09/19 00:00 98.6 F 107 H 22 92/61 L 04/08/19 23:00 107 H 20 111/67 04/08/19 22:00 107 H 22 111/67 04/08/19 21:00 98.6 F 116 H 20 103/82 04/08/19 20:00 98.6 F 104 H 22 122/81 04/08/19 17:00 99.3 F 119 H 22 04/08/19 16:30 108 H 23 138/80 04/08/19 16:00 99.3 F 112 H 122 H 22 144/84 H 144/84 H 04/08/19 15:30 110 H 26 H 131/68 BP Pulse Ox Pulse Ox 04/09/19 15:06 142/59 H 99 04/09/19 15:01 127/58 L 96 04/09/19 12:52 96 04/09/19 12:00 97 04/09/19 10:46 98 04/09/19 08:00 98 98 04/09/19 06:00 99 04/09/19 05:00 98 04/09/19 04:00 100 04/09/19 03:00 98 04/09/19 02:00 99 04/09/19 01:00 100 04/09/19 00:00 99 07/10/19 23:00 97 04/08/19 22:00 100 04/08/19 21:00 100 04/08/19 20:00 99 04/08/19 17:00 99 04/08/19 16:30 100 04/08/19 16:00 100 04/08/19 15:30 100 Transfer of Care Handoff Completed per policy Notes Mental Status: alert / awake / arousable and participated in evaluation Patient Amnestic to Procedure: Yes Nausea / Vomiting: adequately controlled Pain: adequately controlled Airway Patency, RR, SpO2: stable & adequate BP & HR: see Notes below Hydration State: stable & adequate Anesthetic Complications: no major complications apparent and Pt Satisfied with anesthetic care Notes: Pt transported to ICU with monitors and O2. Report was given to ICU staff. Pt remained tachycardic throughout the perioperative period. Care was transferred to the ICU team.
[2019-04-09] MEDS ORDERED: ETOMIDATE 2 MG/ML 20 ML VIAL IV ONE (15:19)
[2019-04-09] MEDS: NORMOSOL-R 1,000 ML IV SCH ×2 (15:55→23:41)
--- NOTE | 2019-04-09 16:08 | Communication Note ---
Date of Service: April 09, 2019 The patient underwent upper endoscopy and endoscopic ultrasound and ERCP this afternoon. Findings Mild inflammation of the duodenal bulb Pus / stone material in the CBD consistent with cholangitis Interventions: Biliary sphincterotomy with gallstone extraction Biliary stent placement Prophylactic pancreatic stent placement Recommendations: Continue with broad-spectrum antibiotics for a total of 14 days General surgery to determine timing of cholecystectomy Repeat ERCP in 6 to 8 weeks for stent removal Would suggest holding aspirin for the next 5 days of possible
[2019-04-09] MEDS: INSULIN REGULAR 250 UNITS in SODIUM CHLORIDE 0.9% 247.5 ML IV SCH (16:15)
--- NOTE | 2019-04-09 19:27 | Progress Note ---
DATE: 04/09/2019 Mr. Bustillo was seen this afternoon with his . Earlier today he underwent an upper endoscopy with endoscopic ultrasound and ERCP by Dr. Royce Madera. He had pus in his common bile duct consistent with cholangitis and had a sphincterotomy and a biliary duct placement with a pancreatic stent. I was asked to see this patient about decortication and we had tentatively scheduled him for this today; however, as he has ascending cholangitis I think it would be best if we push the surgery off. Anesthesia states he was a bit shaky under anesthesia and I think that if he has cholangitis he will improve with Dr. Madera's procedure today. I discussed this in detail with the patient and his and the ICU staff. We will cancel the surgery for tomorrow and keep an eye on him.
[2019-04-09] MEDS: ATORVASTATIN 40 MG TAB PO SCH (21:18)
[2019-04-09] MEDS: ACETAMINOPHEN 500 MG TAB PO PRN (23:27)
[2019-04-10 05:16] LABS: Albumin Level 1.7 gm/dl (3.4-5.0); BUN Creatinine Ratio 31.9 (10-20); Calcium 7.7 mg/dl (8.5-10.1); Creatinine Clr Calc Pharmacy 48.1 ml/min; Est GFR (African American) 48.5; Est GFR (Non-African American) 41.8; Magnesium 2.7 mg/dl (1.8-2.4); Potassium 4.1 mmol/L (3.5-5.1)
[2019-04-10 05:28] LABS: Bilirubin Direct 1.1 mg/dl (0-0.2); Bilirubin,Total 1.6 mg/dl (0.2-1); Phosphorus 3.6 mg/dl (2.5-4.9); Total Protein 6.1 gm/dl (6.4-8.2)
--- NOTE | 2019-04-10 07:22 | XRay Report ---
XR chest 1V portable HISTORY: 74 years-old Male pleural effusion follow-up study in a patient with left-sided pleural eff usion COMPARISON: Chest radiograph and CT chest 04/07/2019 TECHNIQUE: Portable AP view of the chest FINDINGS: Cardiac silhouette is enlarged, unchanged. Pulmonary vascular congestion. Prior median sternotomy. Ca lcification of the thoracic aortic arch. No pneumothorax. Pulmonary vascular congestion. Unchanged mo derate left pleural effusion with extensive opacities about the left mid and lower lung zones. Trace right pleural effusion. Degenerative changes of the shoulders and spine. Calcified left hilar lymph n odes. IMPRESSION: 1. Cardiomegaly with pulmonary vascular congestion. 2. Unchanged moderate left pleural effusion with extensive opacities noted about the left mid and low er lung zones. 3. Trace right pleural effusion. The above report was generated using voice recognition software. It may contain grammatical, syntax o r spelling errors. Electronically signed by: Dawson Barker M.D. 04/10/2019 7:20 AM
[2019-04-10] MEDS: METOPROLOL TARTRATE 25 MG TAB PO SCH ×2 (07:41→20:30)
[2019-04-10] MEDS: NORMOSOL-R 1,000 ML IV SCH (07:41)
[2019-04-10] MEDS: GABAPENTIN 100 MG CAP PO SCH ×3 (07:41→20:33)
[2019-04-10] MEDS: INSULIN ASPART 100 UNITS/ML 3 ML PEN SC SCH ×4 (07:42→20:34)
[2019-04-10 08:03] LABS: Basophils # (auto) 0.02 K/uL (0-0.2); Basophils % (auto) 0.1 %; Eosinophils # (auto) 0.07 K/uL (0-0.5); Eosinophils % (auto) 0.4 %; Hematocrit (blood only) 23.3 % (42-52); Hemoglobin 7.5 g/dL (14.0-18.0); Immature Granulocytes % (auto) 0.6 %; Lymphocytes # (auto) 0.64 K/uL (1.2-3.4); Lymphocytes % (auto) 3.6 %; Mean Corpuscular Volume 83.5 fL (80-100); Mean Platelet Volume 10.7 fL (7.4-10.4); Monocytes # (auto) 1.24 K/uL (0.11-0.59); Neutrophils # (auto) 15.68 K/uL (1.4-6.5); Neutrophils % (auto) 88.3 %; Nucleated RBC % (auto) 0.6 %; Platelet Count 229 K/uL (130-400); RDW Coefficient of Variation 17.3 % (11.5-14.5); RDW Standard Deviation 52.5 fL (36.4-46.3); Red Blood Count 2.79 M/uL (4.7-6.1); White Blood Count 17.75 K/uL (4.8-10.8)
[2019-04-10 08:10] LABS: Mean Corpuscular Hgb Conc 32.2 g/dL (32-36)
--- NOTE | 2019-04-10 08:22 | Critical Care Progress Note ---
Date of Service April 10, 2019 Assessment & Plan (1) Admitted to intensive care unit: Reason Critically Ill: Severe sepsis 2/2 possible biliary source in addition to E. coli in empyema PLAN: NEURO CAM ICU: NEGATIVE -Anxiety- cont Buspirone 2.5 mg TID prn -Will consider clinical dx of depression moving forward. Pt has had flat affect here, although seems improved today somewhat -No other acute concerns or complaints. CARDIO -Septic shock-resolved -CHF- ECHO 04/06: LV systolic function moderately to severely reduced. EF 30-35%. -CAD- cont Aspirin, Atorvastatin. Hold Losartan given MARISA. 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 Converted to ertapenem -consult Thoracic Sx- Dr. Paula: PleurX catheter placed today with no drainage -sat well on NC. Will titrate to keep sat >92% RENAL/ -ARF- prerenal vs ATN. Cr improving. Good UOP -likely ATN 2/2 shock from sepsis -No other acute concerns or complaints GI -Advance diet to full liquids -Cont IV PPI -EGD: No evidence of upper GI bleeding seen -ERCP: choledocholithiasis, extraction of stones and pus, stent placement and pancreatic duct. Will repeat in 6 wks to remove stent. Ultimately require cholecystectomy. -No ASA/NSAID for one week, broad spectrum antibiotics for 2 wks -Transaminitis resolved ENDO -A1C 7.9 -Diabetic Neuropathy- cont Gabapentin 100 mg TID -ICU Hyperglycemia protocol HEME -Anemia likely 2/2 marrow suppression from sepsis. No GI bleeding -retic count this AM, pending ID -Concern for evolving sepsis. Thoracic fluid grew Ecoli ESBL. Largely resolved, convert to ertapenem repeat blood cultures given continued febrile illness -cont trend fever curve. Afebrile since transition to ertapenem LINES: PIV x2, A-line DVT Prophylaxis: Low dose Heparin, SCDs Full Code DISPO: Stable for downgrade out of ICU. PT/OT Supervising Physician Co-Signing Physician Notes Dr. Doherty was resident physician during care of patient. I separately evaluated patient for latif portions of the history and the exam. I was present during the critical portion of medical decision making, and I discussed the case with the resident. I generally agree with the findings and plan. Patient stable for downgrade out of ICU today Subjective 74 y/o M found in bed this AM resting comfortably in NAD. No reported overnight events. Pt states feeling better overall. Has more stamina as he puts it. Tolerating PO intake of CL. No other acute concerns or complaints. Review of Systems Review of Systems: All systems reviewed & are unremarkable except as noted in HPI & below Physical Exam Constitutional: WD/WN, vitals as above Eyes: PERRL, conjunctivae normal, anicteric sclerae ENMT: external ear and nose normal, oropharynx normal Respiratory: diminished L sided lung sounds Cardiovascular: RRR, no murmur, no edema Gastrointestinal (Abdomen): normal bowel sounds, soft, nontender, no hepatosplenomegaly Skin: no rashes, warm and dry Psychiatric: A+Ox3, euthymic affect Results & Data Vital Signs (Past 12 Hours) Vital Signs Temp Pulse Resp BP Pulse Ox 04/10/19 05:15 100 H 21 96 04/10/19 05:00 92 H 20 108/42 L 97 04/10/19 04:00 37.5 C 112 H 22 96 04/10/19 03:00 105 H 24 04/10/19 02:01 105 H 23 83/55 L 04/10/19 02:00 106 H 23 04/10/19 01:00 101 H 27 H 04/10/19 00:01 110 H 28 H 111/53 L 91 04/10/19 00:00 99 H 23 92 04/09/19 23:59 101 H 04/09/19 23:17 37.6 C H 102 H 22 80/54 L 94 04/09/19 23:16 108 H 24 93 04/09/19 22:00 117 H 24 81/53 L 98 04/09/19 21:25 112 H 22 96 04/09/19 21:01 111 H 22 97 04/09/19 21:00 112 H 23 98 04/09/19 20:30 113 H 22 98 Laboratory Results Laboratory Results - last 24 hr 04/06/19 04/09/19 04/09/19 13:30 09:53 11:07 WBC RBC Hgb Hct MCV MCH MCHC RDW Std Deviation RDW Coeff of Abi Plt Count MPV Immature Gran % (Auto) Neut % (Auto) Lymph % (Auto) [place] % (Auto) Eos % (Auto) Baso % (Auto) Immature Gran # (Auto) Neut # (Auto) Lymph # (Auto) [place] # (Auto) Eos # (Auto) Baso # (Auto) Absolute Nucleated RBC Nucleated RBC % (auto) Polychromasia Sodium Potassium Chloride Carbon Dioxide Anion Gap BUN Creatinine Est Cr Clr Drug Dosing Est GFR ( Amer) Est GFR (Non-Af Amer) BUN/Creatinine Ratio Glucose POC Glucose 112 H 116 H Calcium Phosphorus Magnesium Total Bilirubin Direct Bilirubin AST ALT Alkaline Phosphatase Total Protein Albumin Lipase Procalcitonin Pleural Cholesterol 42 Blood Type Antibody Screen Crossmatch 04/09/19 04/09/19 04/09/19 11:58 12:47 14:32 WBC RBC Hgb Hct MCV MCH MCHC RDW Std Deviation RDW Coeff of Abi Plt Count MPV Immature Gran % (Auto) Neut % (Auto) Lymph % (Auto) [place] % (Auto) Eos % (Auto) Baso % (Auto) Immature Gran # (Auto) Neut # (Auto) Lymph # (Auto) [place] # (Auto) Eos # (Auto) Baso # (Auto) Absolute Nucleated RBC Nucleated RBC % (auto) Polychromasia Sodium Potassium Chloride Carbon Dioxide Anion Gap BUN Creatinine Est Cr Clr Drug Dosing Est GFR ( Amer) Est GFR (Non-Af Amer) BUN/Creatinine Ratio Glucose POC Glucose 118 H 109 H 121 H Calcium Phosphorus Magnesium Total Bilirubin Direct Bilirubin AST ALT Alkaline Phosphatase Total Protein Albumin Lipase Procalcitonin Pleural Cholesterol Blood Type Antibody Screen Crossmatch 04/09/19 04/09/19 04/09/19 15:10 16:03 18:10 WBC RBC Hgb Hct MCV MCH MCHC RDW Std Deviation RDW Coeff of Abi Plt Count MPV Immature Gran % (Auto) Neut % (Auto) Lymph % (Auto) [place] % (Auto) Eos % (Auto) Baso % (Auto) Immature Gran # (Auto) Neut # (Auto) Lymph # (Auto) [place] # (Auto) Eos # (Auto) Baso # (Auto) Absolute Nucleated RBC Nucleated RBC % (auto) Polychromasia Sodium Potassium Chloride Carbon Dioxide Anion Gap BUN Creatinine Est Cr Clr Drug Dosing Est GFR ( Amer) Est GFR (Non-Af Amer) BUN/Creatinine Ratio Glucose POC Glucose 125 H 135 H 107 H Calcium Phosphorus Magnesium Total Bilirubin Direct Bilirubin AST ALT Alkaline Phosphatase Total Protein Albumin Lipase Procalcitonin Pleural Cholesterol Blood Type Antibody Screen Crossmatch 04/09/19 04/09/19 04/09/19 18:29 18:46 19:08 WBC RBC Hgb Hct MCV MCH MCHC RDW Std Deviation RDW Coeff of Abi Plt Count MPV Immature Gran % (Auto) Neut % (Auto) Lymph % (Auto) [place] % (Auto) Eos % (Auto) Baso % (Auto) Immature Gran # (Auto) Neut # (Auto) Lymph # (Auto) [place] # (Auto) Eos # (Auto) Baso # (Auto) Absolute Nucleated RBC Nucleated RBC % (auto) Polychromasia Sodium Potassium Chloride Carbon Dioxide Anion Gap BUN Creatinine Est Cr Clr Drug Dosing Est GFR ( Amer) Est GFR (Non-Af Amer) BUN/Creatinine Ratio Glucose POC Glucose 97 102 H 110 H Calcium Phosphorus Magnesium Total Bilirubin Direct Bilirubin AST ALT Alkaline Phosphatase Total Protein Albumin Lipase Procalcitonin Pleural Cholesterol Blood Type Antibody Screen Crossmatch 04/09/19 04/09/19 04/09/19 20:03 20:28 21:07 WBC RBC Hgb Hct MCV MCH MCHC RDW Std Deviation RDW Coeff of Abi Plt Count MPV Immature Gran % (Auto) Neut % (Auto) Lymph % (Auto) [place] % (Auto) Eos % (Auto) Baso % (Auto) Immature Gran # (Auto) Neut # (Auto) Lymph # (Auto) [place] # (Auto) Eos # (Auto) Baso # (Auto) Absolute Nucleated RBC Nucleated RBC % (auto) Polychromasia Sodium Potassium Chloride Carbon Dioxide Anion Gap BUN Creatinine Est Cr Clr Drug Dosing Est GFR ( Amer) Est GFR (Non-Af Amer) BUN/Creatinine Ratio Glucose POC Glucose 97 105 H 106 H Calcium Phosphorus Magnesium Total Bilirubin Direct Bilirubin AST ALT Alkaline Phosphatase Total Protein Albumin Lipase Procalcitonin Pleural Cholesterol Blood Type Antibody Screen Crossmatch 04/09/19 04/09/19 04/10/19 22:04 23:14 00:08 WBC RBC Hgb Hct MCV MCH MCHC RDW Std Deviation RDW Coeff of Abi Plt Count MPV Immature Gran % (Auto) Neut % (Auto) Lymph % (Auto) [place] % (Auto) Eos % (Auto) Baso % (Auto) Immature Gran # (Auto) Neut # (Auto) Lymph # (Auto) [place] # (Auto) Eos # (Auto) Baso # (Auto) Absolute Nucleated RBC Nucleated RBC % (auto) Polychromasia Sodium Potassium Chloride Carbon Dioxide Anion Gap BUN Creatinine Est Cr Clr Drug Dosing Est GFR ( Amer) Est GFR (Non-Af Amer) BUN/Creatinine Ratio Glucose POC Glucose 136 H 144 H 165 H Calcium Phosphorus Magnesium Total Bilirubin Direct Bilirubin AST ALT Alkaline Phosphatase Total Protein Albumin Lipase Procalcitonin Pleural Cholesterol Blood Type Antibody Screen Crossmatch 04/10/19 04/10/19 04/10/19 01:01 02:57 04:34 WBC RBC Hgb Hct MCV MCH MCHC RDW Std Deviation RDW Coeff of Abi Plt Count MPV Immature Gran % (Auto) Neut % (Auto) Lymph % (Auto) [place] % (Auto) Eos % (Auto) Baso % (Auto) Immature Gran # (Auto) Neut # (Auto) Lymph # (Auto) [place] # (Auto) Eos # (Auto) Baso # (Auto) Absolute Nucleated RBC Nucleated RBC % (auto) Polychromasia Sodium Potassium Chloride Carbon Dioxide Anion Gap BUN Creatinine Est Cr Clr Drug Dosing Est GFR ( Amer) Est GFR (Non-Af Amer) BUN/Creatinine Ratio Glucose POC Glucose 143 H 145 H Calcium Phosphorus Magnesium Total Bilirubin Direct Bilirubin AST ALT Alkaline Phosphatase Total Protein Albumin Lipase Procalcitonin Pleural Cholesterol Blood Type A Positive Antibody Screen NEGATIVE Crossmatch See Detail 04/10/19 04/10/19 04/10/19 04:34 04:34 04:39 WBC 17.75 H RBC 2.79 L Hgb 7.5 L Hct 23.3 L MCV 83.5 MCH 26.9 MCHC 32.2 RDW Std Deviation 52.5 H RDW Coeff of Abi 17.3 H Plt Count 229 MPV 10.7 H Immature Gran % (Auto) 0.6 Neut % (Auto) 88.3 Lymph % (Auto) 3.6 [place] % (Auto) 7.0 Eos % (Auto) 0.4 Baso % (Auto) 0.1 Immature Gran # (Auto) 0.10 H Neut # (Auto) 15.68 H Lymph # (Auto) 0.64 L [place] # (Auto) 1.24 H Eos # (Auto) 0.07 Baso # (Auto) 0.02 Absolute Nucleated RBC 0.10 H Nucleated RBC % (auto) 0.6 Polychromasia 1+ Sodium 141 Potassium 4.1 Chloride 112 H Carbon Dioxide 21 Anion Gap 8.0 BUN 51 H Creatinine 1.60 H D Est Cr Clr Drug Dosing 48.1 Est GFR ( Amer) 48.5 Est GFR (Non-Af Amer) 41.8 BUN/Creatinine Ratio 31.9 H Glucose 133 H POC Glucose Calcium 7.7 L Phosphorus 3.6 D Magnesium 2.7 H Total Bilirubin 1.6 H Direct Bilirubin 1.1 H AST 42 H ALT 24 Alkaline Phosphatase 135 H Total Protein 6.1 L Albumin 1.7 L Lipase 296 Procalcitonin 6.23 H Pleural Cholesterol Blood Type Antibody Screen Crossmatch 04/10/19 04/10/19 04:49 07:02 WBC RBC Hgb Hct MCV MCH MCHC RDW Std Deviation RDW Coeff of Abi Plt Count MPV Immature Gran % (Auto) Neut % (Auto) Lymph % (Auto) [place] % (Auto) Eos % (Auto) Baso % (Auto) Immature Gran # (Auto) Neut # (Auto) Lymph # (Auto) [place] # (Auto) Eos # (Auto) Baso # (Auto) Absolute Nucleated RBC Nucleated RBC % (auto) Polychromasia Sodium Potassium Chloride Carbon Dioxide Anion Gap BUN Creatinine Est Cr Clr Drug Dosing Est GFR ( Amer) Est GFR (Non-Af Amer) BUN/Creatinine Ratio Glucose POC Glucose 111 H 136 H Calcium Phosphorus Magnesium Total Bilirubin Direct Bilirubin AST ALT Alkaline Phosphatase Total Protein Albumin Lipase Procalcitonin Pleural Cholesterol Blood Type Antibody Screen Crossmatch Medications Administered Current Inpatient Medications Acetaminophen (Tylenol) 500 mg PO Q4 PRN PRN Reason: Fever Or Pain Stop: 05/05/19 23:15 Last Admin: 04/09/19 23:27 Dose: 500 mg Documented by: Atorvastatin Calcium (Lipitor) 40 mg PO HS [facility] Stop: 05/06/19 20:59 Last Admin: 04/09/19 21:18 Dose: 40 mg Documented by: Buspirone HCl (Buspar) 2.5 mg PO TID PRN PRN Reason: Anxiety Stop: 05/06/19 01:42 Last Admin: 04/10/19 01:07 Dose: 2.5 mg Documented by: Dextrose (Dextrose 50%) 25 - 50 ml IV UD PRN; Protocol PRN Reason: Hypoglycemia Protocol Stop: 05/05/19 23:15 Last Admin: 04/08/19 23:57 Dose: 50 ml Documented by: Docusate Sodium (Colace) 100 mg PO BID PRN PRN Reason: Constipation Stop: 05/05/19 23:15 Last Admin: 04/06/19 08:30 Dose: 100 mg Documented by: Gabapentin (Neurontin) 100 mg PO TID [facility] Stop: 05/06/19 08:59 Last Admin: 04/10/19 07:41 Dose: 100 mg Documented by: Glucagon (Glucagen) 1 mg SQ UD PRN; Protocol PRN Reason: Hypoglycemia Protocol Stop: 05/05/19 23:15 Glucose (Glucose 40%) 15 - 30 gm PO UD PRN; Protocol PRN Reason: Hypoglycemia Protocol Stop: 05/05/19 23:15 Glucose (Dex4 Glucose) 4 - 8 tabs PO UD PRN; Protocol PRN Reason: Hypoglycemia Protocol Stop: 05/05/19 23:15 Ertapenem 1,000 mg/ Sodium (Chloride) 60 mls @ 100 mls/hr IV Q24H [facility] Stop: 04/18/19 10:59 Last Infusion: 04/09/19 12:25 Dose: Infused Documented by: Insulin Human Regular 250 (units/ Sodium Chloride) 250 mls @ 0.6 mls/hr IV .Q24H [facility]; Protocol Stop: 05/08/19 13:59 Last Titration: 04/10/19 06:59 Dose: 0.6 units/hr, 0.6 mls/hr Documented by: Heparin Sodium/Dextrose (Heparin Sodium/Dextrose) 25,000 units in 500 mls @ 20 mls/hr IV .Q24H [facility]; Protocol Stop: 05/10/19 08:44 Insulin Aspart (Novolog Flexpen) 0 units SC ACHS [facility] Stop: 05/10/19 11:29 Insulin Glargine (Lantus Solostar Pen) 20 units SC QAM [facility] Stop: 05/10/19 08:14 Last Admin: 04/10/19 09:10 Dose: 20 units Documented by: Magnesium Oxide (Mag-Ox) 400 mg PO QAM [facility] Stop: 05/06/19 08:59 Last Admin: 04/07/19 09:33 Dose: Not Given Documented by: Metoprolol Tartrate (Lopressor) 25 mg PO BID [facility] Stop: 05/09/19 08:59 Last Admin: 04/10/19 07:41 Dose: 25 mg Documented by: Miscellaneous (Carbohydrates For Hypoglycemia) 15 - 30 gm PO UD PRN PRN Reason: Hypoglycemia Treatment Stop: 05/05/19 23:15 Miscellaneous (Stop Order) 1 ea N/A TODAY@1100 ONE Stop: 04/10/19 11:01 Miscellaneous Information (Consult Glycemic Management Pharmacy) 1 ea N/A UD PRN; Protocol PRN Reason: Consult Stop: 05/05/19 23:47 Pantoprazole Sodium (Protonix) 40 mg PO QAM [facility] Stop: 05/10/19 08:59 Last Admin: 04/10/19 09:10 Dose: 40 mg Documented by: Polyethylene Glycol (Miralax Powder Packet) 17 gm PO DAILY PRN PRN Reason: Constipation Stop: 05/05/19 23:15 Sennosides (Senokot) 8.6 mg PO DAILY PRN PRN Reason: Constipation Stop: 05/05/19 23:15 Last Admin: 04/06/19 08:30 Dose: 8.6 mg Documented by: Resident Activity Tracking Resident Involvement: Resident Care Provided Care Provided: Adult Hospital Medicine
[2019-04-10 08:31] LABS: Polychromasia 1+
--- NOTE | 2019-04-10 08:44 | Cardiology Progress Note ---
Date of Service April 10, 2019 Assessment & Plan (1) Sepsis: The patient is currently hemodynamically stable. He is being treated for a pneumonia and empyema. The patient is to have a VATS procedure at some time during this hospital admission. Currently he has chronic cardiac problems but he is stable. (2) Pneumonia: (3) Acute renal failure: (4) Atrial fibrillation: The heart rate is in the 90s this morning. I would not be aggressive treating the A. fib with further rate control. (5) Coronary artery disease: (6) Diabetes mellitus, type II: (7) Stroke: (8) S/P TAVR (transcatheter aortic valve replacement): (9) GI bleeding: No definite GI source of bleeding. Heparin restarted. Subjective The results of the endoscopy and ERCP are noted. Patient is resting comfortably this morning. No new cardiac complaints. Review of Systems Review of Systems: All systems reviewed & are unremarkable except as noted in HPI & below Nothing additional Physical Exam Physical Exam: General: no acute distress and stated age Head: normocephalic, no masses, lesions, tenderness or abnormalities Eyes: conjunctiva are pink and non-injected, sclera clear Neck: supple, no adenopathy, no bruits, normal jugular venous pulse, no hepatojugular reflux Chest: normal shape and normal respiratory effort Lungs: clear to auscultation and percussion Cardiac Exam: - regular rate & rhythm, no murmurs gallops or rubs - normal S1, normal S2 Pulses: 2(+) throughout Abdomen: abdomen soft, non-tender, no abnormal masses and no hepatosplenomegaly Musculoskeletal: no gait disturbance, no joint inflammation, no deforming arthritis Extremities: no edema and no cyanosis Neuro: grossly normal exam Results & Data Vital Signs (Past 12 Hours) Vital Signs Temp Pulse Pulse Resp BP BP BP 04/10/19 08:00 36.9 C 100 H 102 H 20 103/52 L 98/53 L 04/10/19 05:15 100 H 21 04/10/19 05:00 92 H 20 108/42 L 04/10/19 04:00 37.5 C 112 H 22 04/10/19 03:00 105 H 24 04/10/19 02:01 105 H 23 83/55 L 04/10/19 02:00 106 H 23 04/10/19 01:00 101 H 27 H 04/10/19 00:01 110 H 28 H 111/53 L 04/10/19 00:00 99 H 23 04/09/19 23:59 101 H 04/09/19 23:17 37.6 C H 102 H 22 80/54 L 04/09/19 23:16 108 H 24 04/09/19 22:00 117 H 24 81/53 L 04/09/19 21:25 112 H 22 04/09/19 21:01 111 H 22 04/09/19 21:00 112 H 23 Pulse Ox 04/10/19 08:00 97 04/10/19 05:15 96 04/10/19 05:00 97 04/10/19 04:00 96 04/10/19 03:00 04/10/19 02:01 04/10/19 02:00 04/10/19 01:00 04/10/19 00:01 91 04/10/19 00:00 92 04/09/19 23:59 04/09/19 23:17 94 04/09/19 23:16 93 04/09/19 22:00 98 04/09/19 21:25 96 04/09/19 21:01 97 04/09/19 21:00 98 Laboratory Results General: no acute distress and stated age Head: normocephalic, no masses, lesions, tenderness or abnormalities Eyes: conjunctiva are pink and non-injected, sclera clear Neck: supple, no adenopathy, no bruits, normal jugular venous pulse, no hepatojugular reflux Chest: normal shape and normal respiratory effort Lungs: clear to auscultation and percussion Cardiac Exam: - regular rate & rhythm, no murmurs gallops or rubs - normal S1, normal S2 Pulses: 2(+) throughout Abdomen: abdomen soft, non-tender, no abnormal masses and no hepatosplenomegaly Musculoskeletal: no gait disturbance, no joint inflammation, no deforming arthritis Extremities: no edema and no cyanosis Neuro: grossly normal exam Medications Administered Current Inpatient Medications Acetaminophen (Tylenol) 500 mg PO Q4 PRN PRN Reason: Fever Or Pain Stop: 05/05/19 23:15 Last Admin: 04/09/19 23:27 Dose: 500 mg Documented by: Atorvastatin Calcium (Lipitor) 40 mg PO HS [facility] Stop: 05/06/19 20:59 Last Admin: 04/09/19 21:18 Dose: 40 mg Documented by: Buspirone HCl (Buspar) 2.5 mg PO TID PRN PRN Reason: Anxiety Stop: 05/06/19 01:42 Last Admin: 04/10/19 01:07 Dose: 2.5 mg Documented by: Dextrose (Dextrose 50%) 25 - 50 ml IV UD PRN; Protocol PRN Reason: Hypoglycemia Protocol Stop: 05/05/19 23:15 Last Admin: 04/08/19 23:57 Dose: 50 ml Documented by: Docusate Sodium (Colace) 100 mg PO BID PRN PRN Reason: Constipation Stop: 05/05/19 23:15 Last Admin: 04/06/19 08:30 Dose: 100 mg Documented by: Gabapentin (Neurontin) 100 mg PO TID [facility] Stop: 05/06/19 08:59 Last Admin: 04/10/19 07:41 Dose: 100 mg Documented by: Glucagon (Glucagen) 1 mg SQ UD PRN; Protocol PRN Reason: Hypoglycemia Protocol Stop: 05/05/19 23:15 Glucose (Glucose 40%) 15 - 30 gm PO UD PRN; Protocol PRN Reason: Hypoglycemia Protocol Stop: 05/05/19 23:15 Glucose (Dex4 Glucose) 4 - 8 tabs PO UD PRN; Protocol PRN Reason: Hypoglycemia Protocol Stop: 05/05/19 23:15 Heparin Sodium/Dextrose () 1 ea IV Q15M [facility] Stop: 04/10/19 11:15 Ertapenem 1,000 mg/ Sodium (Chloride) 60 mls @ 100 mls/hr IV Q24H [facility] Stop: 04/18/19 10:59 Last Infusion: 04/09/19 12:25 Dose: Infused Documented by: Insulin Human Regular 250 (units/ Sodium Chloride) 250 mls @ 0.6 mls/hr IV .Q24H [facility]; Protocol Stop: 05/08/19 13:59 Last Titration: 04/10/19 06:59 Dose: 0.6 units/hr, 0.6 mls/hr Documented by: Parenteral Electrolytes (Normosol-R) 1,000 mls @ 125 mls/hr IV .Q8H [facility] Stop: 05/09/19 15:29 Last Admin: 04/10/19 07:41 Dose: 125 mls/hr Documented by: Insulin Aspart (Novolog Flexpen) 0 units SC ACHS [facility] Stop: 05/10/19 11:29 Insulin Glargine (Lantus Solostar Pen) 20 units SC QAM [facility] Stop: 05/10/19 08:14 Magnesium Oxide (Mag-Ox) 400 mg PO QAM [facility] Stop: 05/06/19 08:59 Last Admin: 04/07/19 09:33 Dose: Not Given Documented by: Metoprolol Tartrate (Lopressor) 25 mg PO BID [facility] Stop: 05/09/19 08:59 Last Admin: 04/10/19 07:41 Dose: 25 mg Documented by: Miscellaneous (Carbohydrates For Hypoglycemia) 15 - 30 gm PO UD PRN PRN Reason: Hypoglycemia Treatment Stop: 05/05/19 23:15 Miscellaneous Information (Consult Glycemic Management Pharmacy) 1 ea N/A UD PRN; Protocol PRN Reason: Consult Stop: 05/05/19 23:47 Pantoprazole Sodium (Protonix) [facility] [place] Stop: 05/10/19 08:59 Polyethylene Glycol (Miralax Powder Packet) 17 gm PO DAILY PRN PRN Reason: Constipation Stop: 05/05/19 23:15 Sennosides (Senokot) 8.6 mg PO DAILY PRN PRN Reason: Constipation Stop: 05/05/19 23:15 Last Admin: 04/06/19 08:30 Dose: 8.6 mg Documented by: (1) Sepsis Sepsis type: sepsis due to unspecified organism Qualified Code(s): A41.9 - Sepsis, unspecified organism (2) Pneumonia Laterality: left Lung location: lower lobe of lung Pneumonia type: due to unspecified organism Qualified Code(s): J18.1 - Lobar pneumonia, unspecified organism
[2019-04-10] MEDS ORDERED: HEPARIN SOD 5,000 UNIT/0.5 ML VIAL SQ SCH (09:00)
[2019-04-10] MEDS: PANTOprazole 40 MG TAB PO SCH (09:10)
[2019-04-10] MEDS: INSULIN GLARGINE SOLOSTAR 100 UNITS/ML 3 ML PEN SC SCH (09:10)
[2019-04-10] MEDS: Heparin IV Low Dose *NO* Bolus IV SCH ×2 (09:19→15:53)
[2019-04-10 09:42] LABS: Reticulocyte % 2.8 % (0.5-2.0); Reticulocytes # 0.08 10^6/uL (0.02-0.10)
[2019-04-10 09:52] LABS: INR 1.6 (0.9-1.1); Partial Thromboplastin Ratio 1.1; Prothrombin Time 15.5 Seconds (9.0-12.0)
[2019-04-10 10:05] LABS: Albumin Level 1.7 gm/dl (3.4-5.0); Bilirubin Direct 1.1 mg/dl (0-0.2); Bilirubin,Total 1.6 mg/dl (0.2-1)
[2019-04-10] MEDS: ERTAPENEM SODIUM 1,000 MG in SODIUM CHLORIDE 0.9% 50 ML IV SCH (10:13)
[2019-04-10] MEDS: Heparin Adult LOW DOSE Wt-Based Dextrose 5% 25,000 units/500 mL IV SCH (10:13)
--- NOTE | 2019-04-10 10:53 | Gastroenterology Progress Note ---
Date of Service April 10, 2019 Assessment & Plan (1) Anemia: (2) Melena: (3) Cholecystitis: Pt is a 74 y/o male admitted for sepsis, pneumonia, L sided empyema (thoracic fluid grew Ecoli ESBL); seen for anemia, melena. He was taking Advil on daily basis for L sided chest pain. CT scan also concerning for possible cholecystitis w gallstones and possibly mild pancreatitis ? cirrhotic appearing liver. Though MRCP w/o signs of biliary dilation and choledocholithiasis cannot be excluded. Melena resolved after INR corrected. His EGD yesterday showed no signs of UGI bleed, + duodenitis. ERCP yesterday showed signs of cholangitis, + choledocholithiasis s/p removal, sphincterectomy & biliary, pancreatic stents placements. - Protonix 40md daily - Monitor H/H and transfuse prn - No ASA and NSAIDs x 5 days after ERCP - Broad spectrum antibx x 2 weeks - Removal of biliary stent in 6 weeks. - Surgery consulted for possible cholecystitis, considering HIDA scan but no surgical plans at this time. Supervising Physician Co-Signing Physician Notes I saw and evaluated the patient. He does appear somewhat improved this afternoon. Recommendations Continue broad-spectrum antibiotics for a total of 2 weeks Cholecystectomy per general surgery Advance diet as tolerated over the weekend Repeat ERCP in 6 to 8 weeks Please call with any questions or concerns during the remainder of the hospital admission Subjective RN reports not more melena. Pt denies any abd pain, n/v. Tolerated CL diet. Review of Systems Review of Systems: All systems reviewed & are unremarkable except as noted in HPI & below Physical Exam Constitutional: + frail appearing, well groomed, cooperative and comfortable Eyes: PERRL, conjunctivae normal, anicteric sclerae ENMT: external ear and nose normal, oropharynx normal Respiratory: no respiratory distress and does not use accessory muscles Auscultation: + diminished lung sounds (Diminished L side ) Cardiovascular: RRR, no murmur, no edema Gastrointestinal (Abdomen): normal bowel sounds, soft, nontender, no hepatosplenomegaly Skin: no rashes, warm and dry no jaundice Neurologic: Motor/Sensory: no asterixis Psychiatric: A+Ox3, euthymic affect Lymphatic: + lymphedema (trace bilateral LE edema ) Results & Data Vital Signs (Past 12 Hours) Vital Signs Temp Pulse Pulse Resp BP BP BP 04/10/19 09:00 36.9 C 108 H 20 107/89 04/10/19 08:00 36.9 C 100 H 102 H 20 103/52 L 98/53 L 04/10/19 05:15 100 H 21 04/10/19 05:00 92 H 20 108/42 L 04/10/19 04:00 37.5 C 112 H 22 04/10/19 03:00 105 H 24 04/10/19 02:01 105 H 23 83/55 L 04/10/19 02:00 106 H 23 04/10/19 01:00 101 H 27 H 04/10/19 00:01 110 H 28 H 111/53 L 04/10/19 00:00 99 H 23 04/09/19 23:59 101 H 04/09/19 23:17 37.6 C H 102 H 22 80/54 L 04/09/19 23:16 108 H 24 Pulse Ox 04/10/19 09:00 95 04/10/19 08:00 97 04/10/19 05:15 96 04/10/19 05:00 97 04/10/19 04:00 96 04/10/19 03:00 04/10/19 02:01 04/10/19 02:00 04/10/19 01:00 04/10/19 00:01 91 04/10/19 00:00 92 04/09/19 23:59 04/09/19 23:17 94 04/09/19 23:16 93
[2019-04-10] MEDS ORDERED: [UNRECOGNIZED DRUG - REMARK] ONE (11:00)
--- NOTE | 2019-04-10 12:48 | Surgery Progress Note ---
Date of Service April 10, 2019 Assessment & Plan (1) Cholecystitis, chronic: Dr. Duff recommends lap delmy after he has recovered from this hospitalization and before stent removal in 6 weeks Subjective ERCP findings noted, he tolerated lunch, denies abdominal pain Physical Exam Constitutional: WD/WN, vitals as above Results & Data Vital Signs (Past 12 Hours) Vital Signs Temp Pulse Pulse Resp BP BP BP 04/10/19 12:01 103 H 20 04/10/19 12:00 37.6 C H 99 H 108 H 19 102/64 102/44 L 04/10/19 11:20 96 H 25 H 04/10/19 11:00 104 H 25 H 99/65 L 04/10/19 09:00 36.9 C 108 H 20 107/89 04/10/19 08:00 36.9 C 100 H 102 H 20 103/52 L 98/53 L 04/10/19 05:15 100 H 21 04/10/19 05:00 92 H 20 108/42 L 04/10/19 04:00 37.5 C 112 H 22 04/10/19 03:00 105 H 24 04/10/19 02:01 105 H 23 83/55 L 04/10/19 02:00 106 H 23 04/10/19 01:00 101 H 27 H Pulse Ox 04/10/19 12:01 98 04/10/19 12:00 100 04/10/19 11:20 98 04/10/19 11:00 98 04/10/19 09:00 95 04/10/19 08:00 97 04/10/19 05:15 96 04/10/19 05:00 97 04/10/19 04:00 96 04/10/19 03:00 04/10/19 02:01 04/10/19 02:00 04/10/19 01:00
[2019-04-10] MEDS ORDERED: LIDOCAINE HCL 1% 20 ML VIAL ONE ×2 (13:22→13:50)
--- NOTE | 2019-04-10 13:51 | Pharmacy Report ---
Pharmacy Glycemic Short Note 2 - Date of Service April 10, 2019 - Glycemic Short BSG Results (Last 24 hours): 04/09/19 04/09/19 04/09/19 14:32 15:10 16:03 Glucose POC Glucose 121 H 125 H 135 H 04/09/19 04/09/19 04/09/19 18:10 18:29 18:46 Glucose POC Glucose 107 H 97 102 H 04/09/19 04/09/19 04/09/19 19:08 20:03 20:28 Glucose POC Glucose 110 H 97 105 H 04/09/19 04/09/19 04/09/19 21:07 22:04 23:14 Glucose POC Glucose 106 H 136 H 144 H 04/10/19 04/10/19 04/10/19 00:08 01:01 02:57 Glucose POC Glucose 165 H 143 H 145 H 04/10/19 04/10/19 04/10/19 04:34 04:49 07:02 Glucose 133 H POC Glucose 111 H 136 H 04/10/19 10:47 Glucose POC Glucose 209 H OUTPATIENT ANTIDIABETIC REGIMEN: * glipizide 5mg QD * Lantus 75-100 units QD-per patient, dose varies based on BSG * HbA1c: 7.9% ASSESSMENT: 04/10 * Patient's surgery plans on hold for now; started on full liquid diet and transitioning off of insulin drip * Patient was stable within range at 0.6 units/hr --> about 15 units/24 hours; patient was NPO at this time * Gave 20 units of lantus this AM in anticipation of transition off of drip * BSG at lunch elevated, but drip calculator gave a carb ratio of 37 and patient was only covered with 2 units for 64 units of carbs at breakfast (full liquid diet ordered); Patient has also been started on a heparin drip currently running at 20 ml/hr * Started novolog parameters at 20/6. * Patient to be transferred out of ICU 04/09 * Insulin drip turned off over night due to BSG of 66. Discussed glycemic plan with multidisciplinary team and provider today. As the patient will likely remain NPO for procedures for the next 24-48 hours and has been somewhat unpredictable, we will keep the insulin infusion running. I will not supplement with lantus at this time. The insulin infusion was restarted once the BSG elevated within range and was initiated at a low rate of 1 unit/hr. 04/08: * Patient hyperglycemic last evening and today despite doubling lantus dose last evening. Patient was also made NPO this morning due to GI bleed and placed on a continuous protonix drip (providing 20 mL/hr of dextrose). Discussed plan with provider and it was decided to give 20 units of lantus this morning (NPO status). In addition, AM novolog was not given. Thus we checked lunch BSG early (~1100) and given BSG of 256, an extra 20 units of lantus was given with novolog. BSG was rechecked ~ 1.5 hours later and it remained the same @ 255. I discussed with Dr. Doherty, and it was decided to resume an insulin drip at this time. I will order 20 units of lantus this evening in addition to the drip to help assist in eventual drip transition. However, given patient's labile insulin needs, NPO status, potential for procedures tomorrow, and dextrose containing protonix drip, would recommend continuing infusion for the time being. 04/07 * Patient was successfully transitioned off of the drip yesterday. BSGs since have been much improved and vasopressor have come off. Lunch BSG slightly elevated but per nurse, this was post prandial, so will hold off on altering novolog scale. 04/06 * Patient admitted with septic shock requiring pressors, started on an insulin drip overnight. As the patient remains on pressors and insulin drip rates remains at 3.1 units/hr, will hold off on drip transition. The patient is ordered a diet, but PO intake has been minimal thus far. The norepinephrine drip remains on but at a low dose and is expected to be weaned off soon. I do anticipate transition may be feasible this evening or tomorrow morning once one insulin infusion rate decreases, blood sugars remain in range, and pressors come off. I will place a pending order to assess for possible drip transition once the following parameters are met: insulin infusion rate < 1.5 units/hr and BSG < 180 X 2. I have also ordered lantus to assist with eventual drip transition. Given the wide variability in patient's home dose and minimal PO intake, will use a weight based stress of 2 and 3 dosing for lantus to start. PLAN FOR INPATIENT GLYCEMIC CONTROL: * Hold outpatient oral diabetes medications * Basal: * Lantus 20 units this AM * Scale for PM: * Hold BSG <180 * BSG >180: 10 units * Bolus insulin * NovoLog per scale ACHS * Correction factor 1:20 * Carb ratio: 1:6
--- NOTE | 2019-04-10 14:16 | Anesthesiology Progress Note ---
Date of Service April 10, 2019 Anesthesia Post Procedure Vital Signs Vital Signs: Temp Pulse Pulse Resp BP BP BP 04/10/19 12:01 103 H 20 04/10/19 12:00 37.6 C H 99 H 108 H 19 102/64 102/44 L 04/10/19 11:20 96 H 25 H 04/10/19 11:00 104 H 25 H 99/65 L 04/10/19 09:00 36.9 C 108 H 20 107/89 04/10/19 08:00 36.9 C 100 H 102 H 20 103/52 L 98/53 L 04/10/19 05:15 100 H 21 04/10/19 05:00 92 H 20 108/42 L 04/10/19 04:00 37.5 C 112 H 22 04/10/19 03:00 105 H 24 04/10/19 02:01 105 H 23 83/55 L 04/10/19 02:00 106 H 23 04/10/19 01:00 101 H 27 H 04/10/19 00:01 110 H 28 H 111/53 L 04/10/19 00:00 99 H 23 04/09/19 23:59 101 H 04/09/19 23:17 37.6 C H 102 H 22 80/54 L 04/09/19 23:16 108 H 24 04/09/19 22:00 117 H 24 81/53 L 04/09/19 21:25 112 H 22 04/09/19 21:01 111 H 22 04/09/19 21:00 112 H 23 04/09/19 20:30 113 H 22 04/09/19 20:01 109 H 32 H 04/09/19 20:00 109 H 24 04/09/19 19:56 115 H 24 98/63 L 04/09/19 19:31 37.6 C H 109 H 27 H 04/09/19 19:30 111 H 25 H 04/09/19 19:00 105 H 21 04/09/19 17:00 37.5 C 117 H 16 147/68 H 04/09/19 16:00 37.8 C H 112 H 04/09/19 15:30 125 H 25 H 106/61 04/09/19 15:21 37.6 C H 120 H 122 H 24 98/31 L 98/31 L 124/62 04/09/19 15:19 127 H 20 133/48 L 04/09/19 15:18 130 H 20 04/09/19 15:16 124 H 29 H 133/48 L 131/63 04/09/19 15:11 132 H 25 H 110/68 122/61 04/09/19 15:10 127 H 22 110/88 04/09/19 15:09 124 H 22 114/68 04/09/19 15:06 125 H 29 H 114/68 142/59 H 04/09/19 15:01 38.4 C H 124 H 31 H 127/58 L Pulse Ox Pulse Ox 04/10/19 12:01 98 04/10/19 12:00 100 04/10/19 11:20 98 04/10/19 11:00 98 04/10/19 09:00 95 04/10/19 08:00 97 04/10/19 05:15 96 04/10/19 05:00 97 04/10/19 04:00 96 04/10/19 03:00 04/10/19 02:01 04/10/19 02:00 04/10/19 01:00 04/10/19 00:01 91 04/10/19 00:00 92 04/09/19 23:59 04/09/19 23:17 94 04/09/19 23:16 93 04/09/19 22:00 98 04/09/19 21:25 96 04/09/19 21:01 97 04/09/19 21:00 98 04/09/19 20:30 98 04/09/19 20:01 100 04/09/19 20:00 98 04/09/19 19:56 97 04/09/19 19:31 100 04/09/19 19:30 100 04/09/19 19:00 98 04/09/19 17:00 96 04/09/19 16:00 04/09/19 15:30 96 98 04/09/19 15:21 98 04/09/19 15:19 99 04/09/19 15:18 100 04/09/19 15:16 99 04/09/19 15:11 97 04/09/19 15:10 93 04/09/19 15:09 99 04/09/19 15:06 99 04/09/19 15:01 100 Notes Mental Status: alert / awake / arousable Patient Amnestic to Procedure: Yes Nausea / Vomiting: adequately controlled Pain: adequately controlled Airway Patency, RR, SpO2: stable & adequate BP & HR: stable & adequate Hydration State: stable & adequate Anesthetic Complications: no major complications apparent and Pt Satisfied with anesthetic care
--- NOTE | 2019-04-10 14:26 | XRay Report ---
XR chest 1V portable CLINICAL HISTORY: attempted thoracentesis COMPARISON STUDY: Chest CT April 07, 2019. Chest radiograph April 10, 2019. FINDINGS: Median sternotomy wires are noted. Cardiomegaly is noted. There is pulmonary vascular conge stion without overt pulmonary edema. A moderate left pleural effusion is noted. There is no pneumotho rax. Extensive vascular calcification is noted. IMPRESSION: 1. No pneumothorax. 2. Moderate left pleural effusion. 3. Pulmonary vascular congestion. Electronically signed by: Walter Luciano M.D. 04/10/2019 2:25 PM
--- NOTE | 2019-04-10 15:14 | Hospitalist Progress Note ---
Date of Service April 10, 2019 Assessment & Plan (1) GI bleeding: Has been having GI bleed with melena and bloody stool at times GI consulted On IV PPI and monitor hemoglobin Status post EGD-mild duodenitis but no evidence of active bleeding anywhere Status post ERCP-choledocholithiasis, extraction of stones and pus, stent placement and pancreatic duct No NSAID use and or aspirin for 5 days Hemoglobin remains stable and the patient remains asymptomatic We will continue current medications and transfer the patient to telemetry unit (2) Cholecystitis: CT of the abdomen did show cholelithiasis and acute cholecystitis MRI scan supported cholecystitis Appreciate surgery input and recommendation Not for acute surgery at this time Continue with conservative management No new symptoms ERCP shows cholangitis with cholecystitis Conservative management for now (3) Septic shock: Septic shock secondary to community acquired pneumonia. Continues current treatment in the ICU. Has been on intravenous Zosyn and doxy has been stopped . Repeat CT chest with persistent empyema. Has been on intravenous ertapenem Thoracic surgery consulted for definitive treatment down the line Likely to have thoracentesis next week (4) Pneumonia: Chronic respiratory failure with 2 L nasal cannula. Continue treatment as above for pneumonia. Likely has left pleural effusion with empyema Thoracic surgery has been consulted-thoracotomy and tube placement has been on hold now (5) S/P TAVR (transcatheter aortic valve replacement): No acute issues Appreciate cardiology and input and recommendation Denies any acute cardiac symptoms (6) Diabetes mellitus, type II: off Insulin drip and is being continued on basal/bolus therapy, management per ICU. (7) Coronary artery disease: Medical management with aspirin, Lipitor. Losartan on hold in setting of MARISA. Toprol-XL on hold. Patient has EF 35% and is also on spironolactone which is not being given at this time. Cardiology following. (8) Ischemic cardiomyopathy: As above. Patient is declining defibrillator placement (9) Atrial fibrillation: Continue Coumadin, Toprol on hold. Hemodynamic management per ICU. (10) Acute kidney injury: Likely secondary to septic shock. Continue IV fluids, avoid nephrotoxic substances. Hold losartan. Kidney function remains stable (11) DVT (deep venous thrombosis): Heparin restarted Full code Disposition-continue ICU management We will transfer the patient to telemetry unit for continuation of care Subjective 04/08 The patient was seen and examined in ICU Patient is a 74-year-old male with complex medical history with history of CHF with EF 25 to 30%, chronic atrial fibrillation on Coumadin, diabetes mellitus on insulin therapy, coronary artery disease S/P CABG, history of aortic valve stenosis S/P TAVR, CVA, ischemic cardiomyopathy, spinal stenosis, dyslipidemia, CKD III, carotid artery stenosis, hypertension and other problems presents with history of worsening shortness of breath, cough, generalized weakness, decreased appetite, fever and chills, increased leg swelling. Patient states he has chronic cough which has been gradually worsening since last 2 days prior to admission. Complains to have abdominal discomfort and generally unwell No significant pain and/or distress at rest 04/09 The patient was seen and examined in ICU He remains weak and lethargic Still complains of left sided abdominal pain without nausea or vomiting Denies any fever and/or chills 04/10 Patient was seen and examined in ICU He has been feeling a lot better today Remains extremely weak but out of bed on a chair Denies any significant symptoms Review of Systems Review of Systems: All systems reviewed and are unremarkable except as noted below Constitutional: + weakness and + anorexia Respiratory: no dyspnea Gastrointestinal: + abdominal pain and + bloating Neurologic: + generalized weakness Physical Exam Physical Exam: Moderate distress at rest. Sitting in chair out of bed Constitutional: well developed, well nourished, + acute distress (Mild acute distress secondary to abdominal discomfort), + ill appearing, + frail appearing, well groomed, cooperative and comfortable Eyes: PERRL, conjunctivae normal, anicteric sclerae ENMT: external ear and nose normal, oropharynx normal Neck: trachea midline, no thyromegaly Respiratory: normal respiratory effort; no respiratory distress and does not use accessory muscles Auscultation: + diminished lung sounds (Diminished L side ) Cardiovascular: Rate/Rhythm: regular rate and regular rhythm Heart Sounds: no murmur Gastrointestinal (Abdomen): Inspection/Auscultation: + abdomen distended Percussion/Palpation: + abdomen tender (Left-sided tenderness) and abdomen soft; no guarding Musculoskeletal: No acute arthritis in any joints Skin: no rashes, warm and dry no jaundice Neurologic: Motor/Sensory: no asterixis Generally very weak and lethargic but otherwise alert, awake and oriented x3 Psychiatric: A+Ox3, euthymic affect Lymphatic: no cervical or axillary lymphadenopathy + lymphedema (trace bilateral LE edema ) Results & Data Vital Signs (Past 12 Hours) Vital Signs Temp Pulse Pulse Resp BP BP BP 04/10/19 14:00 37.2 C 102 H 20 100/49 L 04/10/19 12:01 103 H 20 04/10/19 12:00 37.6 C H 99 H 108 H 19 102/64 102/44 L 04/10/19 11:20 96 H 25 H 04/10/19 11:00 104 H 25 H 99/65 L 04/10/19 09:00 36.9 C 108 H 20 107/89 04/10/19 08:00 36.9 C 100 H 102 H 20 103/52 L 98/53 L 04/10/19 05:15 100 H 21 04/10/19 05:00 92 H 20 108/42 L 04/10/19 04:00 37.5 C 112 H 22 Pulse Ox 04/10/19 14:00 98 04/10/19 12:01 98 04/10/19 12:00 100 04/10/19 11:20 98 04/10/19 11:00 98 04/10/19 09:00 95 04/10/19 08:00 97 04/10/19 05:15 96 04/10/19 05:00 97 04/10/19 04:00 96 Laboratory Results Short CBC 04/10/19 Range/Units 04:39 WBC 17.75 H (4.8-10.8) K/uL Hgb 7.5 L (14.0-18.0) g/dL Hct 23.3 L (42-52) % Plt Count 229 (130-400) K/uL BMP 04/10/19 04:34 Sodium 141 Potassium 4.1 Chloride 112 H Carbon Dioxide 21 BUN 51 H Creatinine 1.60 H D Glucose 133 H Calcium 7.7 L Liver Function 04/10/19 04/10/19 Range/Units 04:34 09:23 Total Bilirubin 1.6 H 1.6 H (0.2-1) mg/dl Direct Bilirubin 1.1 H 1.1 H (0-0.2) mg/dl AST 42 H 44 H (15-37) U/L ALT 24 25 (12-78) U/L Alkaline Phosphatase 135 H 128 H (45-117) U/L Albumin 1.7 L 1.7 L (3.4-5.0) gm/dl Medications Administered Current Inpatient Medications Acetaminophen (Tylenol) 500 mg PO Q4 PRN PRN Reason: Fever Or Pain Stop: 05/05/19 23:15 Last Admin: 04/09/19 23:27 Dose: 500 mg Documented by: Atorvastatin Calcium (Lipitor) 40 mg PO HS ZAHRA Stop: 05/06/19 20:59 Last Admin: 04/09/19 21:18 Dose: 40 mg Documented by: Buspirone HCl (Buspar) 2.5 mg PO TID PRN PRN Reason: Anxiety Stop: 05/06/19 01:42 Last Admin: 04/10/19 01:07 Dose: 2.5 mg Documented by: Dextrose (Dextrose 50%) 25 - 50 ml IV UD PRN; Protocol PRN Reason: Hypoglycemia Protocol Stop: 05/05/19 23:15 Last Admin: 04/08/19 23:57 Dose: 50 ml Documented by: Docusate Sodium (Colace) 100 mg PO BID PRN PRN Reason: Constipation Stop: 05/05/19 23:15 Last Admin: 04/06/19 08:30 Dose: 100 mg Documented by: Gabapentin (Neurontin) 100 mg PO TID [facility]AHRA Stop: 05/06/19 08:59 Last Admin: 04/10/19 14:03 Dose: 100 mg Documented by: Glucagon (Glucagen) 1 mg SQ UD PRN; Protocol PRN Reason: Hypoglycemia Protocol Stop: 05/05/19 23:15 Glucose (Glucose 40%) 15 - 30 gm PO UD PRN; Protocol PRN Reason: Hypoglycemia Protocol Stop: 05/05/19 23:15 Glucose (Dex4 Glucose) 4 - 8 tabs PO UD PRN; Protocol PRN Reason: Hypoglycemia Protocol Stop: 05/05/19 23:15 Ertapenem 1,000 mg/ Sodium (Chloride) 60 mls @ 100 mls/hr IV Q24H [facility]AHRA Stop: 04/18/19 10:59 Last Infusion: 04/10/19 10:57 Dose: Infused Documented by: Heparin Sodium/Dextrose (Heparin Sodium/Dextrose) 25,000 units in 500 mls @ 20 mls/hr IV .Q24H ZAHRA; Protocol Stop: 05/10/19 08:44 Last Admin: 04/10/19 10:13 Dose: 1,000 units/hr, 20 mls/hr Documented by: Insulin Aspart (Novolog Flexpen) 0 units SC ACHS [facility] Stop: 05/10/19 11:29 Last Admin: 04/10/19 11:37 Dose: 15 units Documented by: Insulin Aspart (Novolog Flexpen) 0 units SC TODAY@0000,0400 [facility] Stop: 04/11/19 04:01 Insulin Glargine (Lantus Solostar Pen) 20 units SC QAM [facility] Stop: 05/10/19 08:14 Last Admin: 04/10/19 09:10 Dose: 20 units Documented by: Insulin Glargine (Lantus Solostar Pen) 0 units SC HS ONE; Protocol Stop: 04/10/19 21:01 [facility] (Mag-[facility]) [facility] [place]: 05/06/19 08:59 Last Admin: 04/07/19 09:33 Dose: Not Given Documented by: Metoprolol Tartrate (Lopressor) 25 mg PO BID [facility] Stop: 05/09/19 08:59 Last Admin: 04/10/19 07:41 Dose: 25 mg Documented by: Miscellaneous (Carbohydrates For Hypoglycemia) 15 - 30 gm PO UD PRN PRN Reason: Hypoglycemia Treatment Stop: 05/05/19 23:15 Miscellaneous Information (Consult Glycemic Management Pharmacy) 1 ea N/A UD PRN; Protocol PRN Reason: Consult Stop: 05/05/19 23:47 Pantoprazole Sodium (Protonix) 40 mg PO QAM [facility] Stop: 05/10/19 08:59 Last Admin: 04/10/19 09:10 Dose: 40 mg Documented by: Polyethylene Glycol (Miralax Powder Packet) 17 gm PO DAILY PRN PRN Reason: Constipation Stop: 05/05/19 23:15 Sennosides (Senokot) 8.6 mg PO DAILY PRN PRN Reason: Constipation Stop: 05/05/19 23:15 Last Admin: 04/06/19 08:30 Dose: 8.6 mg Documented by:
--- NOTE | 2019-04-10 16:03 | Progress Note ---
DATE: 04/10/2019 I had a long talk with Mr. Bustillo and his today. He is frustrated. I have explained to him that the sphincterotomy and relieving his bile duct obstruction by removing the stone and placing a stent should help him improve from a clinical standpoint. If he defervesces, this would be very good. However, an x-ray was performed this morning, which shows that he has more fluid on the left by my interpretation. For this reason, I felt that we should probably drain him again. He was drained for 700 mL last week, which grew out an E. coli. In retrospect, this is probably from his cholangitis from seeding. For this reason, I am going to offer him a PleurX catheter insertion with a MIST-2 protocol. I do not think the patient is going to tolerate a decortication well now, although I did have him scheduled for today, I have canceled him. We will place a PleurX catheter instead, even though I feel this will probably not be successful given the appearance of the fluid by imaging. At any rate, after a long talk, the patient stated that we "should go for it." We discussed the risks and benefits, and we will do this today.
[2019-04-10 16:46] LABS: Partial Thromboplastin Ratio 1.3; Partial Thromboplastin Time 36.4 Seconds (21.0-31.0)
[2019-04-10] MEDS ORDERED: HEPARIN IV BOLUS 4,500 UNITS in SYRINGE 0 ML IV ONE (17:15)
[2019-04-10] MEDS: ACETAMINOPHEN 500 MG TAB PO PRN (19:40)
[2019-04-10] MEDS: ATORVASTATIN 40 MG TAB PO SCH (20:33)
[2019-04-10] MEDS: ZOLPIDEM TARTRATE 5 MG TAB PO PRN (20:34)
[2019-04-10] MEDS ORDERED: INSULIN GLARGINE SOLOSTAR 100 UNITS/ML 3 ML PEN SC ONE (21:00)
--- NOTE | 2019-04-10 21:36 | Operative Report ---
DATE OF OPERATION: 04/10/2019 PREOPERATIVE DIAGNOSES: 1. Left empyema. 2. Ascending cholangitis from common bile duct stones. 3. Status post ERCP with sphincterotomy and biliary stent placement on 04/09/2019. POSTOPERATIVE DIAGNOSES: 1. Left empyema. 2. Ascending cholangitis from common bile duct stones. 3. Status post ERCP with sphincterotomy and biliary stent placement on 04/09/2019. PROCEDURE: Attempted PleurX catheter insertion. SURGEON: Jacques Paula MD MICROBIOLOGY TECHNICIAN: JED Arana ANESTHESIA: Local. SPECIFICS OF PROCEDURE: I had a long talk with the patient and his prior to this procedure. He agreed to this. I had him scheduled for a decortication. However, he was "a bit shaky" under anesthesia yesterday for his ERCP. After discussing this with the anesthesiologist, we felt it prudent to allow him to recover from his cholangitis. Having said that, we got an x-ray this morning and the fluid is increased. I am concerned about this. Even though the pleura has thickened and is complicated, I feel he may be a candidate for a MIST-2 protocol. For this reason, I elected to put a PleurX catheter in him. DESCRIPTION OF PROCEDURE: On 04/10/2019, I placed the patient in the right lateral decubitus position, his left chest was evaluated with an ultrasound. This fluid is complex and there were septations; however, even though the pleura is thickened, it appeared we would be able to get into some of the fluid. For this reason, I marked him posterolaterally at about the eighth interspace. He was then prepped and draped in usual sterile fashion. After appropriate timeout was called, a 25-gauge needle with 1% Xylocaine was used to anesthetize the skin and subcutaneous tissues using a larger needle to anesthetize the intercostal muscles and pleura. Then I took a large bore needle and attempted to aspirate fluid and injected some Xylocaine also. I went all the way to the hub, I could get nothing. I then went a bit more posterior one interspace up. Again, I got no fluid. I repeated this anteriorly about 3 cm where there was also fluid and I could get no fluid. He tolerated this well with very little in the way of pain. I aborted the procedure here. I told him we would continue antibiotics. We will plan on doing a decortication early next week. I attest to the content of the Intraoperative Record and any orders documented therein. Any exception s are noted below.
[2019-04-11] MEDS: INSULIN ASPART 100 UNITS/ML 3 ML PEN SC SCH ×6 (00:17→21:07)
[2019-04-11 00:44] LABS: Partial Thromboplastin Ratio 1.7
[2019-04-11 00:51] LABS: Partial Thromboplastin Time 47.1 Seconds (21.0-31.0)
[2019-04-11] MEDS: ACETAMINOPHEN 500 MG TAB PO PRN (02:08)
[2019-04-11 07:06] LABS: BUN Creatinine Ratio 32.6 (10-20); Calcium 7.8 mg/dl (8.5-10.1); Creatinine Clr Calc Pharmacy 41.6 ml/min; Est GFR (African American) 39.4; Magnesium 2.7 mg/dl (1.8-2.4); Potassium 4.2 mmol/L (3.5-5.1)
[2019-04-11 07:07] LABS: Phosphorus 3.8 mg/dl (2.5-4.9)
--- NOTE | 2019-04-11 07:12 | XRay Report ---
XR chest 1V portable CLINICAL HISTORY: 74 years-old Male presenting with effusion. TECHNIQUE: Portable upright AP view of the chest was obtained. COMPARISON: 04/10/2019. FINDINGS: Median sternotomy wires. Atherosclerosis of the aortic arch. Cardiac silhouette enlarged. Pulmonary v ascular prominence. Persistent moderate left pleural effusion. Poor aeration of the left lower lung. Added density of the left midlung. No focal opacity in the right lung. Trace right pleural effusion m ay be present. No pneumothorax. Degenerative changes of the thoracic spine. Upper abdomen normal. IMPRESSION: 1. Possible new trace right pleural effusion. 2. Persistent moderate left pleural effusion with extensive left lung atelectasis. 3. Left mid lung infiltrate difficult to exclude though the appearance may be due to atelectasis and a layering effect of the effusion. 4. Cardiomegaly with volume overload. Electronically signed by: Yoan Delgado M.D. 04/11/2019 7:10 AM
[2019-04-11] MEDS: INSULIN GLARGINE SOLOSTAR 100 UNITS/ML 3 ML PEN SC SCH ×2 (08:15→21:09)
[2019-04-11] MEDS: Heparin Adult LOW DOSE Wt-Based Dextrose 5% 25,000 units/500 mL IV SCH (08:16)
[2019-04-11] MEDS: PANTOprazole 40 MG TAB PO SCH (08:17)
[2019-04-11] MEDS: MAGNESIUM OXIDE 400 MG TAB PO SCH (08:17)
[2019-04-11] MEDS: METOPROLOL TARTRATE 25 MG TAB PO SCH ×3 (08:17→21:11)
[2019-04-11] MEDS: GABAPENTIN 100 MG CAP PO SCH ×3 (08:17→21:11)
[2019-04-11 09:22] LABS: Basophils # (auto) 0.02 K/uL (0-0.2); Basophils % (auto) 0.1 %; Eosinophils # (auto) 0.08 K/uL (0-0.5); Eosinophils % (auto) 0.4 %; Hematocrit (blood only) 24.5 % (42-52); Hemoglobin 7.8 g/dL (14.0-18.0); Immature Granulocytes # (auto) 0.29 K/uL (0.00-0.02); Immature Granulocytes % (auto) 1.5 %; Lymphocytes % (auto) 4.1 %; Mean Corpuscular Hgb Conc 31.8 g/dL (32-36); Mean Corpuscular Volume 85.7 fL (80-100); Mean Platelet Volume 10.9 fL (7.4-10.4); Monocytes # (auto) 1.28 K/uL (0.11-0.59); Monocytes % (auto) 6.5 %; Neutrophils # (auto) 17.13 K/uL (1.4-6.5); Neutrophils % (auto) 87.4 %; Nucleated RBC # (auto) 0.24 K/uL (0-0); Nucleated RBC % (auto) 1.2 %; Platelet Count 264 K/uL (130-400); RDW Standard Deviation 55.8 fL (36.4-46.3); Red Blood Count 2.86 M/uL (4.7-6.1)
[2019-04-11] MEDS ORDERED: INSULIN GLARGINE SOLOSTAR 100 UNITS/ML 3 ML PEN SC STA (09:40)
--- NOTE | 2019-04-11 09:48 | Cardiology Progress Note ---
Date of Service April 11, 2019 Assessment & Plan (1) Pneumonia: (2) Atrial fibrillation: The patient's heart rate is elevated today however, I would not be aggressive treating due to his low blood pressure and low hemoglobin which is contributing. (3) Coronary artery disease: (4) Diabetes mellitus, type II: (5) S/P TAVR (transcatheter aortic valve replacement): (6) GI bleeding: The patient had a bloody bowel movement this morning. His hemoglobin is 7.8. I am going to hold his heparin for now. He could benefit from a blood transfusion. Subjective The patient is resting in a chair. He had what is described by nursing is a dark bloody bowel movement this morning. Review of Systems Review of Systems: All systems reviewed & are unremarkable except as noted in HPI & below Nothing to add Physical Exam Physical Exam: General: no acute distress and stated age Head: normocephalic, no masses, lesions, tenderness or abnormalities Eyes: conjunctiva are pink and non-injected, sclera clear Neck: supple, no adenopathy, no bruits, normal jugular venous pulse, no hepatojugular reflux Chest: normal shape and normal respiratory effort Lungs: clear to auscultation and percussion Cardiac Exam: - regular rate & rhythm, no murmurs gallops or rubs - normal S1, normal S2 Pulses: 2(+) throughout Abdomen: abdomen soft, non-tender, no abnormal masses and no hepatosplenomegaly Musculoskeletal: no gait disturbance, no joint inflammation, no deforming arthritis Extremities: no edema and no cyanosis Neuro: grossly normal exam Results & Data Vital Signs (Past 12 Hours) Vital Signs Temp Pulse Pulse Resp BP Pulse Ox 04/11/19 07:00 37.1 C 105 H 19 92/47 L 98 04/11/19 04:17 36.2 C L 04/11/19 03:14 37.8 C H 116 H 24 119/70 92 04/11/19 02:07 37.7 C H 04/11/19 00:12 37.9 C H 116 H 18 99/57 L 94 04/10/19 23:59 112 H (1) Pneumonia Laterality: left Lung location: lower lobe of lung Pneumonia type: due to unspecified organism Qualified Code(s): J18.1 - Lobar pneumonia, unspecified organism
[2019-04-11 09:57] LABS: Echinocytes 1+; Hypochromasia Present
[2019-04-11] MEDS ORDERED: SODIUM CHLORIDE 0.9% 250 ML IV PRN (10:19)
--- NOTE | 2019-04-11 10:45 | Surgery Progress Note ---
Date of Service April 11, 2019 Assessment & Plan (1) Choledocholithiasis: S/p ERCP lap delmy once recovered from VATs which may occur Saturday no abdominal symptoms currently Subjective POD #2 ERCP feeling OK denies abdominal pain Review of Systems Constitutional: no fever Respiratory: + dyspnea Cardiovascular: no chest pain Gastrointestinal: no abdominal pain, no nausea and no vomiting Physical Exam Constitutional: well developed and well nourished Neck: trachea midline Respiratory: Auscultation: + diminished lung sounds Cardiovascular: Rate/Rhythm: + tachycardic Gastrointestinal (Abdomen): Inspection/Auscultation: abdomen normal to inspection and + abdomen distended Percussion/Palpation: abdomen soft; abdomen nontender and no guarding Results & Data Vital Signs (Past 12 Hours) Vital Signs Temp Pulse Pulse Resp BP Pulse Ox 04/11/19 07:00 37.1 C 105 H 19 92/47 L 98 04/11/19 04:17 36.2 C L 04/11/19 03:14 37.8 C H 116 H 24 119/70 92 04/11/19 02:07 37.7 C H 04/11/19 00:12 37.9 C H 116 H 18 99/57 L 94 04/10/19 23:59 112 H
[2019-04-11] MEDS: ERTAPENEM SODIUM 1,000 MG in SODIUM CHLORIDE 0.9% 50 ML IV SCH (11:04)
--- NOTE | 2019-04-11 12:30 | Progress Note ---
DATE: 04/11/2019 Mr. Bustillo continues to concern me. His vital signs are bit worrisome. His hemoglobin is low and he is still having bloody bowel movements. His chest x-ray is unchanged essentially. His white count remains elevated over 19,000. I would like to have this patient in better shape prior to doing a decortication as I do not think he is going to tolerate it well, although if he does not defervesce in the next few days, our hand will be forced. He understands. MTDD
--- NOTE | 2019-04-11 13:07 | Hospitalist Progress Note ---
Date of Service April 11, 2019 Assessment & Plan (1) GI bleeding: Has been having GI bleed with melena and bloody stool at times GI consulted On IV PPI and monitor hemoglobin Status post EGD-mild duodenitis but no evidence of active bleeding anywhere Status post ERCP-choledocholithiasis, extraction of stones and pus, stent placement and pancreatic duct No NSAID use and or aspirin for 5 days Hemoglobin remains stable and the patient remains asymptomatic We will continue current medications and transfer the patient to telemetry unit Has had a bloody bowel movement this morning with hemoglobin went down to 7.4 Denies any abdominal pain Will give him 2 units of blood transfusion and discontinue heparin (2) Cholecystitis: CT of the abdomen did show cholelithiasis and acute cholecystitis MRI scan supported cholecystitis Appreciate surgery input and recommendation Not for acute surgery at this time Continue with conservative management No new symptoms ERCP shows cholangitis with cholecystitis Conservative management for now as he is a bad surgical candidate at this time (3) Septic shock: Septic shock secondary to community acquired pneumonia. Continues current treatment in the ICU. Has been on intravenous Zosyn and doxy has been stopped . Repeat CT chest with persistent empyema. Has been on intravenous ertapenem Thoracic surgery consulted for definitive treatment down the line Likely to have thoracentesis next week Thoracentesis has been on hold as his condition deteriorated (4) Pneumonia: Chronic respiratory failure with 2 L nasal cannula. Continue treatment as above for pneumonia. Likely has left pleural effusion with empyema Thoracic surgery has been consulted-thoracotomy and tube placement has been on hold now As above (5) S/P TAVR (transcatheter aortic valve replacement): No acute issues Appreciate cardiology and input and recommendation Denies any acute cardiac symptoms Denies any cardiac symptoms (6) Diabetes mellitus, type II: off Insulin drip and is being continued on basal/bolus therapy, management per ICU. (7) Coronary artery disease: Medical management with aspirin, Lipitor. Losartan on hold in setting of MARISA. Toprol-XL on hold. Patient has EF 35% and is also on spironolactone which is not being given at this time. Cardiology following. (8) Ischemic cardiomyopathy: As above. Patient is declining defibrillator placement (9) Atrial fibrillation: Continue Coumadin, Toprol on hold. Hemodynamic management per ICU. Heart rate has been going high and the blood pressure is low Appreciate cardiology input and recommendation (10) Acute kidney injury: Likely secondary to septic shock. Continue IV fluids, avoid nephrotoxic substances. Hold losartan. Kidney function remains stable (11) DVT (deep venous thrombosis): Heparin restarted Full code Disposition-continue ICU management Continue current care Subjective 04/08 The patient was seen and examined in ICU Patient is a 74-year-old male with complex medical history with history of CHF with EF 25 to 30%, chronic atrial fibrillation on Coumadin, diabetes mellitus on insulin therapy, coronary artery disease S/P CABG, history of aortic valve stenosis S/P TAVR, CVA, ischemic cardiomyopathy, spinal stenosis, dyslipidemia, CKD III, carotid artery stenosis, hypertension and other problems presents with history of worsening shortness of breath, cough, generalized weakness, decreased appetite, fever and chills, increased leg swelling. Patient states he has chronic cough which has been gradually worsening since last 2 days prior to admission. Complains to have abdominal discomfort and generally unwell No significant pain and/or distress at rest 04/09 The patient was seen and examined in ICU He remains weak and lethargic Still complains of left sided abdominal pain without nausea or vomiting Denies any fever and/or chills 04/10 Patient was seen and examined in ICU He has been feeling a lot better today Remains extremely weak but out of bed on a chair Denies any significant symptoms 04/11 Patient is seen and examined in telemetry unit He remains generally weak and lethargic but says that he feels better He is out of bed to chair with some discomfort Denies any significant pain He has had a bloody bowel movement this morning and his heart rate has been going high with low blood pressure Review of Systems Review of Systems: All systems reviewed and are unremarkable except as noted below Constitutional: + weakness and + anorexia Respiratory: no cough and no dyspnea Cardiovascular: no chest pain Gastrointestinal: + abdominal pain and + bloating Musculoskeletal: No acute arthritis in any of the joints Neurologic: + generalized weakness Physical Exam Physical Exam: Sitting in a chair with minimal discomfort secondary to profound weakness Constitutional: + acute distress (Mild acute distress secondary to abdominal discomfort), + ill appearing, + frail appearing, well groomed, cooperative and comfortable Eyes: PERRL, conjunctivae normal, anicteric sclerae ENMT: external ear and nose normal, oropharynx normal Neck: trachea midline, no thyromegaly Respiratory: normal respiratory effort; no respiratory distress and does not use accessory muscles Auscultation: + diminished lung sounds (Diminished L side ) Cardiovascular: Rate/Rhythm: + abnormal rate and + abnormal rhythm Heart Sounds: no murmur Gastrointestinal (Abdomen): Inspection/Auscultation: + abdomen distended Percussion/Palpation: + abdomen tender (Left-sided tenderness) and abdomen soft; no guarding Musculoskeletal: No acute arthritis Skin: no rashes, warm and dry no jaundice Neurologic: moves all extremities Motor/Sensory: no asterixis Psychiatric: A+Ox3, euthymic affect Lymphatic: no cervical or axillary lymphadenopathy + lymphedema (trace bilateral LE edema ) Results & Data Vital Signs (Past 12 Hours) Vital Signs Temp Pulse Pulse Resp BP BP Pulse Ox 04/11/19 12:50 36.3 C L 109 H 16 129/70 99 04/11/19 12:35 36.4 C L 106 H 16 148/71 H 100 04/11/19 12:19 36.7 C 103 H 16 87/48 L 100 04/11/19 11:11 36.7 C 104 H 19 85/49 L 97 04/11/19 07:00 37.1 C 105 H 19 92/47 L 98 04/11/19 04:17 36.2 C L 04/11/19 03:14 37.8 C H 116 H 24 119/70 92 04/11/19 02:07 37.7 C H Laboratory Results Short CBC 04/11/19 Range/Units 05:38 WBC 19.60 H (4.8-10.8) K/uL Hgb 7.8 L (14.0-18.0) g/dL Hct 24.5 L (42-52) % Plt Count 264 (130-400) K/uL BMP 04/11/19 05:38 Sodium 136 Potassium 4.2 Chloride 107 Carbon Dioxide 20 L BUN 62 H Creatinine 1.90 H D Glucose 196 H Calcium 7.8 L Medications Administered Current Inpatient Medications Acetaminophen (Tylenol) 500 mg PO Q4 PRN PRN Reason: Fever Or Pain Stop: 05/05/19 23:15 Last Admin: 04/11/19 02:08 Dose: 500 mg Documented by: Atorvastatin Calcium (Lipitor) 40 mg PO HS [facility] [place] Stop: 05/06/19 20:59 Last Admin: 04/10/19 20:33 Dose: 40 mg Documented by: Buspirone HCl (Buspar) 2.5 mg PO TID PRN PRN Reason: Anxiety Stop: 05/06/19 01:42 Last Admin: 04/10/19 01:07 Dose: 2.5 mg Documented by: Dextrose (Dextrose 50%) 25 - 50 ml IV UD PRN; Protocol PRN Reason: Hypoglycemia Protocol Stop: 05/05/19 23:15 Last Admin: 04/08/19 23:57 Dose: 50 ml Documented by: Docusate Sodium (Colace) 100 mg PO BID PRN PRN Reason: Constipation Stop: 05/05/19 23:15 Last Admin: 04/06/19 08:30 Dose: 100 mg Documented by: Gabapentin (Neurontin) 100 mg PO TID [facility] [place] Stop: 05/06/19 08:59 Last Admin: 04/11/19 08:17 Dose: 100 mg Documented by: Glucagon (Glucagen) 1 mg SQ UD PRN; Protocol PRN Reason: Hypoglycemia Protocol Stop: 05/05/19 23:15 Glucose (Glucose 40%) 15 - 30 gm PO UD PRN; Protocol PRN Reason: Hypoglycemia Protocol Stop: 05/05/19 23:15 Glucose (Dex4 Glucose) 4 - 8 tabs PO UD PRN; Protocol PRN Reason: Hypoglycemia Protocol Stop: 05/05/19 23:15 Ertapenem 1,000 mg/ Sodium (Chloride) 60 mls @ 100 mls/hr IV Q24H [facility] [place] Stop: 04/18/19 10:59 Last Infusion: 04/11/19 11:44 Dose: Infused Documented by: Sodium Chloride (Nss) 250 mls @ 15 mls/hr IV .[id number] PRN PRN Reason: For Transfusion Stop: 05/11/19 10:18 Insulin Aspart (Novolog Flexpen) 0 units SC ACHS [facility] [place] Stop: 05/10/19 11:29 Last Admin: 04/11/19 12:26 Dose: 22 units Documented by: Insulin Glargine (Lantus Solostar Pen) 20 units SC QAM [facility] [place] Stop: 05/10/19 08:14 Last Admin: 04/11/19 08:15 Dose: 20 units Documented by: Magnesium Oxide (Mag-Ox) 400 mg PO QAM [facility] [place] Stop: 05/06/19 08:59 Last Admin: 04/11/19 08:17 Dose: 400 mg Documented by: Metoprolol Tartrate (Lopressor) 25 mg PO BID [facility] Stop: 05/09/19 08:59 Last Admin: 04/11/19 09:01 Dose: Not Given Documented by: Miscellaneous (Carbohydrates For Hypoglycemia) 15 - 30 gm PO UD PRN PRN Reason: Hypoglycemia Treatment Stop: 05/05/19 23:15 Miscellaneous Information (Consult Glycemic Management Pharmacy) 1 ea N/A UD PRN; Protocol PRN Reason: Consult Stop: 05/05/19 23:47 Pantoprazole Sodium (Protonix) 40 mg PO QAM [facility] [place] Stop: 05/10/19 08:59 Last Admin: 04/11/19 08:17 Dose: 40 mg Documented by: Polyethylene Glycol (Miralax Powder Packet) 17 gm PO DAILY PRN PRN Reason: Constipation Stop: 05/05/19 23:15 Sennosides (Senokot) 8.6 mg PO DAILY PRN PRN Reason: Constipation Stop: 05/05/19 23:15 Last Admin: 04/06/19 08:30 Dose: 8.6 mg Documented by: Zolpidem Tartrate (Ambien) 5 mg PO HS PRN PRN Reason: Sleep Stop: 05/10/19 18:35 Last Admin: 04/10/19 20:34 Dose: 5 mg Documented by:
--- NOTE | 2019-04-11 14:08 | Pharmacy Report ---
Pharmacy Glycemic Short Note 2 - Date of Service April 11, 2019 - Glycemic Short BSG Results (Last 24 hours): 04/10/19 04/10/19 04/10/19 14:10 16:31 20:23 Glucose POC Glucose 271 H 229 H 226 H 04/11/19 04/11/19 04/11/19 00:08 04:03 05:38 Glucose 196 H POC Glucose 197 H 233 H 04/11/19 04/11/19 07:16 11:15 Glucose POC Glucose 214 H 300 H OUTPATIENT ANTIDIABETIC REGIMEN: * glipizide 5mg QD * Lantus 75-100 units QD-per patient, dose varies based on BSG * HbA1c: 7.9% ASSESSMENT: Pt remains persistently hyperglycemic, likely due to basal deficiency. Will provide my metabolic insulin. see below for further details PLAN FOR INPATIENT GLYCEMIC CONTROL: * Hold outpatient oral diabetes medications * Basal: * Lantus 30 units AM * HS scale: 15 units for BSGs <180, above give 20 units * Bolus insulin * NovoLog per scale ACHS * Correction factor 1:15 * Carb ratio: 1:5
[2019-04-11] MEDS ORDERED: INSULIN HUMAN REGULAR PER UNIT 5 UNITS in SYRINGE 4.95 ML IV ONE (16:30)
[2019-04-11] MEDS: ATORVASTATIN 40 MG TAB PO SCH (21:11)
[2019-04-11] MEDS: ZOLPIDEM TARTRATE 5 MG TAB PO PRN (21:17)
[2019-04-12 07:33] LABS: Basophils # (auto) 0.02 K/uL (0-0.2); Basophils % (auto) 0.1 %; Eosinophils # (auto) 0.09 K/uL (0-0.5); Eosinophils % (auto) 0.5 %; Hematocrit (blood only) 29.3 % (42-52); Hemoglobin 9.5 g/dL (14.0-18.0); Immature Granulocytes % (auto) 1.8 %; Lymphocytes # (auto) 0.58 K/uL (1.2-3.4); Lymphocytes % (auto) 3.4 %; Mean Corpuscular Hgb Conc 32.4 g/dL (32-36); Mean Corpuscular Volume 85.2 fL (80-100); Mean Platelet Volume 10.3 fL (7.4-10.4); Monocytes # (auto) 1.31 K/uL (0.11-0.59); Monocytes % (auto) 7.7 %; Neutrophils # (auto) 14.69 K/uL (1.4-6.5); Neutrophils % (auto) 86.5 %; Nucleated RBC # (auto) 0.12 K/uL (0-0); Nucleated RBC % (auto) 0.7 %; Platelet Count 240 K/uL (130-400); RDW Coefficient of Variation 18.4 % (11.5-14.5); RDW Standard Deviation 55.8 fL (36.4-46.3); Red Blood Count 3.44 M/uL (4.7-6.1); White Blood Count 16.99 K/uL (4.8-10.8)
[2019-04-12 07:49] LABS: Partial Thromboplastin Ratio 1.2; Partial Thromboplastin Time 31.5 Seconds (21.0-31.0)
[2019-04-12] MEDS: INSULIN ASPART 100 UNITS/ML 3 ML PEN SC SCH ×4 (08:06→21:14)
[2019-04-12] MEDS: INSULIN GLARGINE SOLOSTAR 100 UNITS/ML 3 ML PEN SC SCH ×2 (08:09→21:09)
[2019-04-12] MEDS: METOPROLOL TARTRATE 25 MG TAB PO SCH ×2 (08:10→21:19)
[2019-04-12] MEDS: PANTOprazole 40 MG TAB PO SCH (08:10)
[2019-04-12] MEDS: GABAPENTIN 100 MG CAP PO SCH ×3 (08:11→21:13)
[2019-04-12] MEDS: MAGNESIUM OXIDE 400 MG TAB PO SCH (08:11)
[2019-04-12 08:12] LABS: BUN Creatinine Ratio 34.6 (10-20); Calcium 7.9 mg/dl (8.5-10.1); Creatinine Clr Calc Pharmacy 43.3 ml/min; Est GFR (African American) 40.7; Est GFR (Non-African American) 35.1; Magnesium 2.7 mg/dl (1.8-2.4); Phosphorus 3.4 mg/dl (2.5-4.9); Potassium 4.2 mmol/L (3.5-5.1)
--- NOTE | 2019-04-12 08:29 | Pharmacy Report ---
Pharmacy Glycemic Short Note 2 - Date of Service April 12, 2019 - Glycemic Short BSG Results (Last 24 hours): 04/11/19 04/11/19 04/11/19 11:15 16:02 16:04 Glucose POC Glucose 300 H 300 H 309 H* 04/11/19 04/11/19 04/12/19 18:43 20:22 07:13 Glucose 79 POC Glucose 245 H 253 H 04/12/19 07:26 Glucose POC Glucose 103 H OUTPATIENT ANTIDIABETIC REGIMEN: * glipizide 5mg QD * Lantus 75-100 units QD-per patient, dose varies based on BSG * HbA1c: 7.9% ASSESSMENT: BSGs in the 300s yesterday evening, likely due to basal deficiency. Will adjust AM lantus scale to help make up this deficiency. Today's FBS WNL. Will continue with HS lantus supplementation. PLAN FOR INPATIENT GLYCEMIC CONTROL: * Hold outpatient oral diabetes medications * Basal: * Lantus scale SQ QAM, see MAR for further details * HS scale: 15 units for BSGs <180, above give 20 units * Bolus insulin - tightened * NovoLog per scale ACHS * Correction factor 1:15 * Carb ratio: 1:4
[2019-04-12] MEDS ORDERED: INSULIN GLARGINE SOLOSTAR 100 UNITS/ML 3 ML PEN SC SCH (09:00)
--- NOTE | 2019-04-12 10:33 | Surgery Progress Note ---
Date of Service April 12, 2019 Assessment & Plan (1) Choledocholithiasis: possible VATs, poor surgical candidate once medically stable and lung issue addressed may need lap delmy as outpatient, at least 6 weeks from now Subjective more alert today no abdominal pain Physical Exam Gastrointestinal (Abdomen): Inspection/Auscultation: normal bowel sounds Percussion/Palpation: abdomen soft; abdomen nontender Results & Data Vital Signs (Past 12 Hours) Vital Signs Temp Pulse Pulse Resp BP BP Pulse Ox 04/12/19 08:00 04/12/19 07:28 37.2 C 112 H 19 122/78 96 04/12/19 03:38 37.4 C 109 H 16 109/49 L 96 04/12/19 00:00 36.9 C 109 H 18 109/41 L 97 04/11/19 23:59 110 H Pulse Ox 04/12/19 08:00 98 04/12/19 07:28 04/12/19 03:38 04/12/19 00:00 04/11/19 23:59
[2019-04-12] MEDS ORDERED: FUROSEMIDE 40 MG/4 ML VIAL IV STA (11:16)
--- NOTE | 2019-04-12 11:18 | Cardiology Progress Note ---
Date of Service April 12, 2019 Assessment & Plan (1) Pneumonia: The patient has an empyema with no plan to have a VATS until the patient is more stable. (2) Atrial fibrillation: Heart rate has improved today after blood transfusions. Unfortunately, his blood pressures are unreliable in his arms due to previous atherosclerotic vascular disease and conduit harvest. Patient is a little volume overloaded having blood yesterday and will provide some diuresis today. (3) Coronary artery disease: (4) Diabetes mellitus, type II: (5) S/P TAVR (transcatheter aortic valve replacement): (6) GI bleeding: No additional melanotic stools. Hemoglobin is 9.5 today after transfusion. (7) Cholecystitis: Surgery is on hold until the patient is more stable. Subjective The patient is resting comfortably in chair. Review of Systems Review of Systems: All systems reviewed & are unremarkable except as noted in HPI & below Nothing additional to add Physical Exam Physical Exam: General: no acute distress and stated age Head: normocephalic, no masses, lesions, tenderness or abnormalities Eyes: conjunctiva are pink and non-injected, sclera clear Neck: supple, no adenopathy, no bruits, normal jugular venous pulse, no hepatojugular reflux Chest: normal shape and normal respiratory effort Lungs: Decreased breath sounds on the left. Cardiac Exam: - irregular rate & rhythm, no murmurs gallops or rubs - normal S1, normal S2 Pulses: 2(+) throughout Abdomen: Abdomen is a little distended with fluid wave today. Musculoskeletal: no gait disturbance, no joint inflammation, no deforming arthritis Extremities: Some lower extremity edema. Neuro: grossly normal exam Results & Data Vital Signs (Past 12 Hours) Vital Signs Temp Pulse Pulse Resp BP BP Pulse Ox 04/12/19 10:46 36.9 C 83 18 82/54 L 92 04/12/19 08:00 04/12/19 07:28 37.2 C 112 H 19 122/78 96 04/12/19 03:38 37.4 C 109 H 16 109/49 L 96 04/12/19 00:00 36.9 C 109 H 18 109/41 L 97 04/11/19 23:59 110 H Pulse Ox 04/12/19 10:46 04/12/19 08:00 98 04/12/19 07:28 04/12/19 03:38 04/12/19 00:00 04/11/19 23:59 Laboratory Results Laboratory Results - last 24 hr 04/10/19 04/11/19 04/11/19 04:34 11:15 16:02 WBC RBC Hgb Hct MCV MCH MCHC RDW Std Deviation RDW Coeff of Abi Plt Count MPV Immature Gran % (Auto) Neut % (Auto) Lymph % (Auto) [place] % (Auto) Eos % (Auto) Baso % (Auto) Immature Gran # (Auto) Neut # (Auto) Lymph # (Auto) [place] # (Auto) Eos # (Auto) Baso # (Auto) Absolute Nucleated RBC Nucleated RBC % (auto) APTT PTT Ratio Sodium Potassium Chloride Carbon Dioxide Anion Gap BUN Creatinine Est Cr Clr Drug Dosing Est GFR ( Amer) Est GFR (Non-Af Amer) BUN/Creatinine Ratio Glucose POC Glucose 300 H 300 H Calcium Phosphorus Magnesium Blood Type A Positive Antibody Screen NEGATIVE Crossmatch See Detail 04/11/19 04/11/19 04/11/19 16:04 18:43 20:22 WBC RBC Hgb Hct MCV MCH MCHC RDW Std Deviation RDW Coeff of Abi Plt Count MPV Immature Gran % (Auto) Neut % (Auto) Lymph % (Auto) [place] % (Auto) Eos % (Auto) Baso % (Auto) Immature Gran # (Auto) Neut # (Auto) Lymph # (Auto) [place] # (Auto) Eos # (Auto) Baso # (Auto) Absolute Nucleated RBC Nucleated RBC % (auto) APTT PTT Ratio Sodium Potassium Chloride Carbon Dioxide Anion Gap BUN Creatinine Est Cr Clr Drug Dosing Est GFR ( Amer) Est GFR (Non-Af Amer) BUN/Creatinine Ratio Glucose POC Glucose 309 H* 245 H 253 H Calcium Phosphorus Magnesium Blood Type Antibody Screen Crossmatch 04/12/19 04/12/19 04/12/19 07:13 07:13 07:13 WBC 16.99 H RBC 3.44 L Hgb 9.5 L Hct 29.3 L MCV 85.2 MCH 27.6 MCHC 32.4 RDW Std Deviation 55.8 H RDW Coeff of Abi 18.4 H Plt Count 240 MPV 10.3 Immature Gran % (Auto) 1.8 Neut % (Auto) 86.5 Lymph % (Auto) 3.4 [place] % (Auto) 7.7 Eos % (Auto) 0.5 Baso % (Auto) 0.1 Immature Gran # (Auto) 0.30 H Neut # (Auto) 14.69 H Lymph # (Auto) 0.58 L [place] # (Auto) 1.31 H Eos # (Auto) 0.09 Baso # (Auto) 0.02 Absolute Nucleated RBC 0.12 H Nucleated RBC % (auto) 0.7 APTT 31.5 H PTT Ratio 1.2 Sodium 137 Potassium 4.2 Chloride 106 Carbon Dioxide 21 Anion Gap 10.0 BUN 64 H Creatinine 1.85 H Est Cr Clr Drug Dosing 43.3 Est GFR ( Amer) 40.7 Est GFR (Non-Af Amer) 35.1 BUN/Creatinine Ratio 34.6 H Glucose 79 POC Glucose Calcium 7.9 L Phosphorus 3.4 Magnesium 2.7 H Blood Type Antibody Screen Crossmatch 04/12/19 07:26 WBC RBC Hgb Hct MCV MCH MCHC RDW Std Deviation RDW Coeff of Abi Plt Count MPV Immature Gran % (Auto) Neut % (Auto) Lymph % (Auto) [place] % (Auto) Eos % (Auto) Baso % (Auto) Immature Gran # (Auto) Neut # (Auto) Lymph # (Auto) [place] # (Auto) Eos # (Auto) Baso # (Auto) Absolute Nucleated RBC Nucleated RBC % (auto) APTT PTT Ratio Sodium Potassium Chloride Carbon Dioxide Anion Gap BUN Creatinine Est Cr Clr Drug Dosing Est GFR ( Amer) Est GFR (Non-Af Amer) BUN/Creatinine Ratio Glucose POC Glucose 103 H Calcium Phosphorus Magnesium Blood Type Antibody Screen Crossmatch Medications Administered Current Inpatient Medications Acetaminophen (Tylenol) 500 mg PO Q4 PRN PRN Reason: Fever Or Pain Stop: 05/05/19 23:15 Last Admin: 04/11/19 02:08 Dose: 500 mg Documented by: Atorvastatin Calcium (Lipitor) 40 mg PO HS [facility] Stop: 05/06/19 20:59 Last Admin: 04/11/19 21:11 Dose: 40 mg Documented by: Buspirone HCl (Buspar) 2.5 mg PO TID PRN PRN Reason: Anxiety Stop: 05/06/19 01:42 Last Admin: 04/10/19 01:07 Dose: 2.5 mg Documented by: Dextrose (Dextrose 50%) 25 - 50 ml IV UD PRN; Protocol PRN Reason: Hypoglycemia Protocol Stop: 05/05/19 23:15 Last Admin: 04/08/19 23:57 Dose: 50 ml Documented by: Docusate Sodium (Colace) 100 mg PO BID PRN PRN Reason: Constipation Stop: 05/05/19 23:15 Last Admin: 04/06/19 08:30 Dose: 100 mg Documented by: Gabapentin (Neurontin) 100 mg PO TID [facility] Stop: 05/06/19 08:59 Last Admin: 04/12/19 08:11 Dose: 100 mg Documented by: Glucagon (Glucagen) 1 mg SQ UD PRN; Protocol PRN Reason: Hypoglycemia Protocol Stop: 05/05/19 23:15 Glucose (Glucose 40%) 15 - 30 gm PO UD PRN; Protocol PRN Reason: Hypoglycemia Protocol Stop: 05/05/19 23:15 Glucose (Dex4 Glucose) 4 - 8 tabs PO UD PRN; Protocol PRN Reason: Hypoglycemia Protocol Stop: 05/05/19 23:15 Ertapenem 1,000 mg/ Sodium (Chloride) 60 mls @ 100 mls/hr IV Q24H [facility] Stop: 04/18/19 10:59 Last Infusion: 04/11/19 11:44 Dose: Infused Documented by: Sodium Chloride (Nss) 250 mls @ 15 mls/hr IV .[id number] PRN PRN Reason: For Transfusion Stop: 05/11/19 10:18 Insulin Aspart (Novolog Flexpen) 0 units SC ACHS [facility] Stop: 05/10/19 11:29 Last Admin: 04/12/19 08:06 Dose: 13 units Documented by: Insulin Glargine (Lantus Solostar Pen) 0 units SC HS [facility]; Protocol Stop: 05/11/19 20:59 Last Admin: 04/11/19 21:09 Dose: 20 units Documented by: Insulin Glargine (Lantus Solostar Pen) 0 units SC QAM [facility]; Protocol Stop: 05/10/19 08:14 Last Admin: 04/12/19 08:09 Dose: 30 units Documented by: Magnesium Oxide (Mag-Ox) 400 mg PO QAM [facility] Stop: 05/06/19 08:59 Last Admin: 04/12/19 08:11 Dose: 400 mg Documented by: Metoprolol Tartrate (Lopressor) 25 mg PO BID [facility] Stop: 05/09/19 08:59 Last Admin: 04/12/19 08:10 Dose: 25 mg Documented by: Miscellaneous (Carbohydrates For Hypoglycemia) 15 - 30 gm PO UD PRN PRN Reason: Hypoglycemia Treatment Stop: 05/05/19 23:15 Miscellaneous Information (Consult Glycemic Management Pharmacy) 1 ea N/A UD PRN; Protocol PRN Reason: Consult Stop: 05/05/19 23:47 Pantoprazole Sodium (Protonix) 40 mg PO QAM [facility] Stop: 05/10/19 08:59 Last Admin: 04/12/19 08:10 Dose: 40 mg Documented by: Polyethylene Glycol (Miralax Powder Packet) 17 gm PO DAILY PRN PRN Reason: Constipation Stop: 05/05/19 23:15 Sennosides (Senokot) 8.6 mg PO DAILY PRN PRN Reason: Constipation Stop: 05/05/19 23:15 Last Admin: 04/06/19 08:30 Dose: 8.6 mg Documented by: Zolpidem Tartrate (Ambien) 5 mg PO HS PRN PRN Reason: Sleep Stop: 05/10/19 18:35 Last Admin: 04/11/19 21:17 Dose: 5 mg Documented by: (1) Pneumonia Laterality: left Lung location: lower lobe of lung Pneumonia type: due to unspecified organism Qualified Code(s): J18.1 - Lobar pneumonia, unspecified organism
--- NOTE | 2019-04-12 11:36 | Progress Note ---
DATE: 04/12/2019 The patient was seen today and quite frankly I do not think he looks very good. He has decreased breath sounds on the left. His blood pressure has been a bit lower this morning. His saturations are 92% on 2 liters; however, his white count remains elevated at 16,990. His hemoglobin is better at 9.5. He is still having melanotic stools. At this point, I think this patient is going to require a left decortication; however, I do not think he would tolerate it well now. I will hope to see that he gets better in the next few days before we would offer this to him.
[2019-04-12] MEDS: ERTAPENEM SODIUM 1,000 MG in SODIUM CHLORIDE 0.9% 50 ML IV SCH (12:17)
[2019-04-12] MEDS ORDERED: FUROSEMIDE 20 MG in SYRINGE 0 ML IV STA (12:23)
[2019-04-12 14:36] LABS: Appearance Urine Cloudy (Clear); Bacteria Urine Automated Negative (Negative); Color Urine Dark Yellow; Glucose Urine UA Negative (Negative); Ketones Urine Trace (Negative); Leukocyte Esterase Urine Negative (Negative); Nitrite Urine Negative (Negative); Protein Urine Negative (Negative); Urobilinogen Urine Negative (Negative)
[2019-04-12 14:49] LABS: Bilirubin Urine Negative (Negative); Ictotest Urine Negative (Negative)
[2019-04-12 14:56] LABS: Mucus Urine Present (None Prsent)
[2019-04-12 14:57] LABS: Amorphous Sediment Urine Present (None Prsent)
--- NOTE | 2019-04-12 15:35 | Hospitalist Progress Note ---
Date of Service April 12, 2019 Assessment & Plan (1) GI bleeding: Has been having GI bleed with melena and bloody stool at times GI consulted On IV PPI and monitor hemoglobin Status post EGD-mild duodenitis but no evidence of active bleeding anywhere Status post ERCP-choledocholithiasis, extraction of stones and pus, stent placement and pancreatic duct No NSAID use and or aspirin for 5 days Hemoglobin remains stable and the patient remains asymptomatic We will continue current medications and transfer the patient to telemetry unit Has had a bloody bowel movement this morning with hemoglobin went down to 7.4 Denies any abdominal pain Will give him 2 units of blood transfusion and discontinue heparin Hemoglobin went up to more than 9 and no more episode of GI bleed Clinically remains stable but very weak and lethargic (2) Cholecystitis: CT of the abdomen did show cholelithiasis and acute cholecystitis MRI scan supported cholecystitis Appreciate surgery input and recommendation Not for acute surgery at this time Continue with conservative management ERCP shows cholangitis with cholecystitis Conservative management for now as he is a bad surgical candidate at this time Continue intravenous ertapenem (3) Septic shock: Septic shock secondary to community acquired pneumonia. Continues current treatment in the ICU. Has been on intravenous Zosyn and doxy has been stopped . Repeat CT chest with persistent empyema. Thoracic surgery consulted for definitive treatment down the line Likely to have thoracentesis next week Thoracentesis has been on hold as his condition deteriorated Has been on intravenous ertapenem (4) Pneumonia: Chronic respiratory failure with 2 L nasal cannula. Continue treatment as above for pneumonia. Likely has left pleural effusion with empyema Thoracic surgery has been consulted-thoracotomy and tube placement has been on hold now As above (5) S/P TAVR (transcatheter aortic valve replacement): No acute issues Appreciate cardiology and input and recommendation Denies any acute cardiac symptoms Denies any cardiac symptoms (6) Diabetes mellitus, type II: off Insulin drip and is being continued on basal/bolus therapy, management per ICU. (7) Coronary artery disease: Medical management with aspirin, Lipitor. Losartan on hold in setting of MARISA. Toprol-XL on hold. Patient has EF 35% and is also on spironolactone which is not being given at this time. Cardiology following. (8) Ischemic cardiomyopathy: As above. Patient is declining defibrillator placement (9) Atrial fibrillation: Continue Coumadin, Toprol on hold. Hemodynamic management per ICU. Heart rate has been going high and the blood pressure is low Appreciate cardiology input and recommendation (10) Acute kidney injury: Likely secondary to septic shock. Continue IV fluids, avoid nephrotoxic substances. Hold losartan. Kidney function remains stable (11) DVT (deep venous thrombosis): Heparin restarted Anticoagulation is on hold due to GI bleed which required 2 unit of blood transfusion Full code Disposition-continue ICU management Continue current care Subjective 04/08 The patient was seen and examined in ICU Patient is a 74-year-old male with complex medical history with history of CHF with EF 25 to 30%, chronic atrial fibrillation on Coumadin, diabetes mellitus on insulin therapy, coronary artery disease S/P CABG, history of aortic valve stenosis S/P TAVR, CVA, ischemic cardiomyopathy, spinal stenosis, dyslipidemia, CKD III, carotid artery stenosis, hypertension and other problems presents with history of worsening shortness of breath, cough, generalized weakness, decreased appetite, fever and chills, increased leg swelling. Patient states he has chronic cough which has been gradually worsening since last 2 days prior to admission. Complains to have abdominal discomfort and generally unwell No significant pain and/or distress at rest 04/09 The patient was seen and examined in ICU He remains weak and lethargic Still complains of left sided abdominal pain without nausea or vomiting Denies any fever and/or chills 04/10 Patient was seen and examined in ICU He has been feeling a lot better today Remains extremely weak but out of bed on a chair Denies any significant symptoms 04/11 Patient is seen and examined in telemetry unit He remains generally weak and lethargic but says that he feels better He is out of bed to chair with some discomfort Denies any significant pain He has had a bloody bowel movement this morning and his heart rate has been going high with low blood pressure 04/12 The patient was seen and examined in telemetry unit She has been generally weak and lethargic Complains to have excessive weakness but denies any acute symptoms of shortness of breath and her pain He did have bowel movement which is brown in color but no blood in it Review of Systems Review of Systems: All systems reviewed and are unremarkable except as noted below Constitutional: + fatigue and + anorexia; no weakness Respiratory: + dyspnea (Minimal distress at rest with shortness of breath) Cardiovascular: + edema (Trace edema bilaterally); no chest pain Gastrointestinal: + abdominal pain and + bloating Musculoskeletal: No acute arthritis in any of the joints Neurologic: + generalized weakness Alert, awake and oriented x3 generally very weak and lethargic Physical Exam Physical Exam: Lying in bed, tired and mild distress secondary to shortness of breath Constitutional: + acute distress (Mild acute distress secondary to abdominal discomfort), + ill appearing, + frail appearing, well groomed, cooperative and comfortable Eyes: PERRL, conjunctivae normal, anicteric sclerae ENMT: external ear and nose normal, oropharynx normal Neck: trachea midline, no thyromegaly Respiratory: + respiratory distress (Minimal); does not use accessory muscles Auscultation: + diminished lung sounds (Diminished L side ) and + crackles (Minimal crackles at the bases) Cardiovascular: Rate/Rhythm: + abnormal rate and + abnormal rhythm Heart Sounds: no murmur Gastrointestinal (Abdomen): normal bowel sounds, soft, nontender, no hepatosplenomegaly Inspection/Auscultation: + abdomen distended Percussion/Palpation: + abdomen tender (Left-sided tenderness) and abdomen soft; no guarding Skin: no rashes, warm and dry no jaundice Neurologic: moves all extremities Motor/Sensory: no asterixis Psychiatric: A+Ox3, euthymic affect Lymphatic: no cervical or axillary lymphadenopathy + lymphedema (trace bilateral LE edema ) Results & Data Vital Signs (Past 12 Hours) Vital Signs Temp Pulse Resp BP BP Pulse Ox Pulse Ox 04/12/19 10:46 36.9 C 83 18 82/54 L 92 04/12/19 08:00 98 04/12/19 07:28 37.2 C 112 H 19 122/78 96 04/12/19 03:38 37.4 C 109 H 16 109/49 L 96 Laboratory Results Short CBC 04/12/19 Range/Units 07:13 WBC 16.99 H (4.8-10.8) K/uL Hgb 9.5 L (14.0-18.0) g/dL Hct 29.3 L (42-52) % Plt Count 240 (130-400) K/uL BMP 04/12/19 07:13 Sodium 137 Potassium 4.2 Chloride 106 Carbon Dioxide 21 BUN 64 H Creatinine 1.85 H Glucose 79 Calcium 7.9 L Urine 04/12/19 Range/Units 13:57 Urine Color Dark Yellow Urine Appearance Cloudy A (Clear) Urine pH 5.0 (4.5-7.5) Ur Specific Leigh 1.020 (1.000-1.030) Urine Protein Negative (Negative) Urine Glucose (UA) Negative (Negative) Medications Administered Current Inpatient Medications Acetaminophen (Tylenol) 500 mg PO Q4 PRN PRN Reason: Fever Or Pain Stop: 05/05/19 23:15 Last Admin: 04/11/19 02:08 Dose: 500 mg Documented by: Atorvastatin Calcium (Lipitor) 40 mg PO HS [facility] Stop: 05/06/19 20:59 Last Admin: 04/11/19 21:11 Dose: 40 mg Documented by: Buspirone HCl (Buspar) 2.5 mg PO TID PRN PRN Reason: Anxiety Stop: 05/06/19 01:42 Last Admin: 04/10/19 01:07 Dose: 2.5 mg Documented by: Dextrose (Dextrose 50%) 25 - 50 ml IV UD PRN; Protocol PRN Reason: Hypoglycemia Protocol Stop: 05/05/19 23:15 Last Admin: 04/08/19 23:57 Dose: 50 ml Documented by: Docusate Sodium (Colace) 100 mg PO BID PRN PRN Reason: Constipation Stop: 05/05/19 23:15 Last Admin: 04/06/19 08:30 Dose: 100 mg Documented by: Gabapentin (Neurontin) 100 mg PO TID [facility] Stop: 05/06/19 08:59 Last Admin: 04/12/19 15:00 Dose: Not Given Documented by: Glucagon (Glucagen) 1 mg SQ UD PRN; Protocol PRN Reason: Hypoglycemia Protocol Stop: 05/05/19 23:15 Glucose (Glucose 40%) 15 - 30 gm PO UD PRN; Protocol PRN Reason: Hypoglycemia Protocol Stop: 05/05/19 23:15 Glucose (Dex4 Glucose) 4 - 8 tabs PO UD PRN; Protocol PRN Reason: Hypoglycemia Protocol Stop: 05/05/19 23:15 Ertapenem 1,000 mg/ Sodium (Chloride) 60 mls @ 100 mls/hr IV Q24H [facility] Stop: 04/18/19 10:59 Last Infusion: 04/12/19 13:03 Dose: Infused Documented by: Sodium Chloride (Nss) 250 mls @ 15 mls/hr IV .[id number] PRN PRN Reason: For Transfusion Stop: 05/11/19 10:18 Insulin Aspart (Novolog Flexpen) 0 units SC [facility] Stop: 05/10/19 11:29 Last Admin: 04/12/19 12:18 Dose: 13 units Documented by: Insulin Glargine (Lantus Solostar Pen) 0 units SC HS [facility]; Protocol Stop: 05/11/19 20:59 Last Admin: 04/11/19 21:09 Dose: 20 units Documented by: Insulin Glargine ([facility]us [facility]ostar Pen) [facility] [place] Protocol Stop: 05/10/19 08:14 Last Admin: 04/12/19 08:09 Dose: 30 units Documented by: Magnesium Oxide (Mag-Ox) 400 mg PO QAM [facility] Stop: 05/06/19 08:59 Last Admin: 04/12/19 08:11 Dose: 400 mg Documented by: Metoprolol Tartrate (Lopressor) 25 mg PO BID [facility] Stop: 05/09/19 08:59 Last Admin: 04/12/19 08:10 Dose: 25 mg Documented by: Miscellaneous (Carbohydrates For Hypoglycemia) 15 - 30 gm PO UD PRN PRN Reason: Hypoglycemia Treatment Stop: 05/05/19 23:15 Miscellaneous Information (Consult Glycemic Management Pharmacy) 1 ea N/A UD PRN; Protocol PRN Reason: Consult Stop: 05/05/19 23:47 Pantoprazole Sodium (Protonix) [facility] [place] Stop: 05/10/19 08:59 Last Admin: 04/12/19 08:10 Dose: 40 mg Documented by: Polyethylene Glycol (Miralax Powder Packet) 17 gm PO DAILY PRN PRN Reason: Constipation Stop: 05/05/19 23:15 Sennosides (Senokot) 8.6 mg PO DAILY PRN PRN Reason: Constipation Stop: 05/05/19 23:15 Last Admin: 04/06/19 08:30 Dose: 8.6 mg Documented by: Zolpidem Tartrate (Ambien) 5 mg PO HS PRN PRN Reason: Sleep Stop: 05/10/19 18:35 Last Admin: 04/11/19 21:17 Dose: 5 mg Documented by:
[2019-04-12] MEDS: ATORVASTATIN 40 MG TAB PO SCH (21:12)
[2019-04-12] MEDS: ZOLPIDEM TARTRATE 5 MG TAB PO PRN (21:22)
[2019-04-13 06:02] LABS: Basophils # (auto) 0.01 K/uL (0-0.2); Basophils % (auto) 0.1 %; Eosinophils # (auto) 0.07 K/uL (0-0.5); Eosinophils % (auto) 0.4 %; Hematocrit (blood only) 29.5 % (42-52); Hemoglobin 9.5 g/dL (14.0-18.0); Immature Granulocytes # (auto) 0.28 K/uL (0.00-0.02); Immature Granulocytes % (auto) 1.7 %; Lymphocytes # (auto) 0.47 K/uL (1.2-3.4); Lymphocytes % (auto) 2.9 %; Mean Corpuscular Hgb Conc 32.2 g/dL (32-36); Monocytes # (auto) 1.18 K/uL (0.11-0.59); Monocytes % (auto) 7.2 %; Neutrophils # (auto) 14.42 K/uL (1.4-6.5); Neutrophils % (auto) 87.7 %; Nucleated RBC # (auto) 0.07 K/uL (0-0); Nucleated RBC % (auto) 0.4 %; Platelet Count 234 K/uL (130-400); RDW Coefficient of Variation 18.6 % (11.5-14.5); RDW Standard Deviation 56.9 fL (36.4-46.3); Red Blood Count 3.47 M/uL (4.7-6.1); White Blood Count 16.43 K/uL (4.8-10.8)
[2019-04-13 06:25] LABS: Partial Thromboplastin Ratio 1.2
[2019-04-13] MEDS: ACETAMINOPHEN 500 MG TAB PO PRN ×2 (06:27→21:04)
[2019-04-13 06:38] LABS: BUN Creatinine Ratio 40.6 (10-20); Calcium 7.8 mg/dl (8.5-10.1); Creatinine Clr Calc Pharmacy 46.6 ml/min; Est GFR (African American) 44.1; Phosphorus 3.6 mg/dl (2.5-4.9); Potassium 4.5 mmol/L (3.5-5.1)
--- NOTE | 2019-04-13 07:39 | Surgery Progress Note ---
Date of Service April 13, 2019 Assessment & Plan (1) Cholecystitis, chronic: will discuss with Dr Paula reg left chest decortication hold off cholecystectomy now if condition dictated RX may need cholecystostomy tube Dr. Duff recommends lap delmy after he has recovered from this hospitalization and before stent removal in 6 weeks Subjective sleeping slow to awaken denies abd pain The patient is resting comfortably in chair. Physical Exam Physical Exam: abd neg Results & Data Vital Signs (Past 12 Hours) Vital Signs Temp Pulse Pulse Pulse Resp BP BP 04/13/19 03:36 36.7 C 104 H 24 139/69 04/13/19 00:23 36.8 C 101 H 22 95/54 L 04/12/19 23:38 110 H 04/12/19 21:18 83/43 L 04/12/19 19:52 37.0 C 108 H 19 99/40 L Pulse Ox 04/13/19 03:36 98 04/13/19 00:23 97 04/12/19 23:38 04/12/19 21:18 04/12/19 19:52 98
[2019-04-13] MEDS: INSULIN ASPART 100 UNITS/ML 3 ML PEN SC SCH ×4 (08:47→20:59)
[2019-04-13] MEDS: INSULIN GLARGINE SOLOSTAR 100 UNITS/ML 3 ML PEN SC SCH ×2 (08:49→20:57)
[2019-04-13] MEDS: METOPROLOL TARTRATE 25 MG TAB PO SCH ×2 (08:50→20:58)
[2019-04-13] MEDS: MAGNESIUM OXIDE 400 MG TAB PO SCH (08:50)
[2019-04-13] MEDS: PANTOprazole 40 MG TAB PO SCH (08:50)
[2019-04-13] MEDS: GABAPENTIN 100 MG CAP PO SCH ×3 (08:50→20:57)
--- NOTE | 2019-04-13 10:34 | Gastroenterology Progress Note ---
Date of Service April 13, 2019 Assessment & Plan (1) Choledocholithiasis: 74 y/o male admitted for sepsis, pneumonia, L sided empyema (thoracic fluid grew Ecoli ESBL); seen for anemia, melena. He was taking Advil on daily basis for L sided chest pain. CT scan also concerning for possible cholecystitis w gallstones and possibly mild pancreatitis ? cirrhotic appearing liver. Though MRCP w/o signs of biliary dilation and choledocholithiasis cannot be excluded. Melena resolved after INR corrected. His EGD yesterday showed no signs of UGI bleed, + duodenitis. ERCP yesterday showed signs of cholangitis, + choledocholithiasis s/p removal, sphincterectomy & biliary, pancreatic stents placements. He remains asymptomatic from a GI standpoint, HGB stable without further evidence of GI bleed. Last BM was brown per nursing. There is plan for left chest decortication - Protonix 40mg daily - Continue broad spectrum antibiotics for 2 weeks - Cholecystectomy per general surgery - Removal of biliary stent in 6 weeks - Would continue H&H daily Will sign off. Thank you for allowing us to participate in the care of this patient. Please call with any acute changes, questions or concerns. Please see addendum below with additional recommendation from my supervising physician. Supervising Physician Co-Signing Physician Notes I have personally seen and examined the patient with KERRIE Jarrett. Her note reflects my exam and findings. I agree with her impression and plan. Presentation and course most c/w self limited sphincterotomy bleed. Stable H/H. No signs of continued GI bleeding. Keep patient on PPI as out patient. Navneet Mora M.D. Subjective GI asked to re-evaluate Clinically doing well Denies abd pain No nausea, vomiting Moving bowels Last BM two days ago He did have a black stool last week w/ stable HGB Most recent BM was brown Denies lightheadedness, dizziness Feels weak, fatigued, tired Review of Systems Constitutional: + fatigue and + weakness; no fever and no chills Respiratory: no cough, no dyspnea and no pain on inspiration Cardiovascular: no chest pain, no radiating jaw, neck or arm pain and no dyspnea on exertion Gastrointestinal: no abdominal pain, no nausea, no vomiting, no blood in stools and no melena Physical Exam Constitutional: + ill appearing; no acute distress Respiratory: Auscultation: + diminished lung sounds; no wheezes Cardiovascular: Rate/Rhythm: regular rhythm and + tachycardic Skin: no rashes, warm and dry Results & Data Vital Signs (Past 12 Hours) Vital Signs Temp Pulse Pulse Pulse Resp BP BP 04/13/19 07:56 37.0 C 102 H 19 94/33 L 111/49 L 04/13/19 03:36 36.7 C 104 H 24 139/69 04/13/19 00:23 36.8 C 101 H 22 95/54 L 04/12/19 23:38 110 H Pulse Ox 04/13/19 07:56 98 04/13/19 03:36 98 04/13/19 00:23 97 04/12/19 23:38 Laboratory Results 04/13/19 04/13/19 04/13/19 Range/Units 07:04 05:41 05:41 WBC 16.43 H (4.8-10.8) K/uL RBC 3.47 L (4.7-6.1) M/uL Hgb 9.5 L (14.0-18.0) g/dL Hct 29.5 L (42-52) % MCV 85.0 (80-100) fL MCH 27.4 (25-34) pg MCHC 32.2 (32-36) g/dL RDW Std Deviation 56.9 H (36.4-46.3) fL RDW Coeff of Abi 18.6 H (11.5-14.5) % Plt Count 234 (130-400) K/uL MPV 10.0 (7.4-10.4) fL Immature Gran % (Auto) 1.7 % Neut % (Auto) 87.7 % Lymph % (Auto) 2.9 % [place] % (Auto) 7.2 % Eos % (Auto) 0.4 % Baso % (Auto) 0.1 % Immature Gran # (Auto) 0.28 H (0.00-0.02) K/uL Neut # (Auto) 14.42 H (1.4-6.5) K/uL Lymph # (Auto) 0.47 L (1.2-3.4) K/uL [place] # (Auto) 1.18 H (0.11-0.59) K/uL Eos # (Auto) 0.07 (0-0.5) K/uL Baso # (Auto) 0.01 (0-0.2) K/uL Absolute Nucleated RBC 0.07 H (0-0) K/uL Nucleated RBC % (auto) 0.4 % APTT (21.0-31.0) Seconds PTT Ratio Sodium 136 (136-145) mmol/L Potassium 4.5 (3.5-5.1) mmol/L Chloride 106 (98-107) mmol/L Carbon Dioxide 21 (21-32) mmol/L Anion Gap 9.0 (3-11) BUN 70 H (7-18) mg/dl Creatinine 1.73 H (0.6-1.4) mg/dl Est Cr Clr Drug Dosing 46.6 ml/min Est GFR ( Amer) 44.1 Est GFR (Non-Af Amer) 38.0 BUN/Creatinine Ratio 40.6 H (10-20) Glucose 107 H (70-99) mg/dl POC Glucose 162 H (70-99) Calcium 7.8 L (8.5-10.1) mg/dl Phosphorus 3.6 (2.5-4.9) mg/dl Magnesium 3.0 H (1.8-2.4) mg/dl Urine Color Urine Appearance (Clear) Urine pH (4.5-7.5) Ur Specific [place] (1.000-1.030) Urine Protein (Negative) Urine Glucose (UA) (Negative) Urine Ketones (Negative) Urine Blood (Negative) Urine Nitrite (Negative) Urine Bilirubin (Negative) Urine Urobilinogen (Negative) Ur Leukocyte Esterase (Negative) Urine WBC (Auto) (0-5) /hpf Urine RBC (Auto) (0-4) /hpf U Hyaline Cast (Auto) (0-5) /lpf U Epithel Cells (Auto) (0-5) /lpf Urine Bacteria (Auto) (Negative) Amorphous Sediment (None Prsent) Granular Casts (0) /lpf Urine Mucus (None Prsent) Urine Yeast 04/13/19 04/12/19 04/12/19 Range/Units 05:41 15:58 13:57 WBC (4.8-10.8) K/uL RBC (4.7-6.1) M/uL Hgb (14.0-18.0) g/dL Hct (42-52) % MCV (80-100) fL MCH (25-34) pg MCHC (32-36) g/dL RDW Std Deviation (36.4-46.3) fL RDW Coeff of Abi (11.5-14.5) % Plt Count (130-400) K/uL MPV (7.4-10.4) fL Immature Gran % (Auto) % Neut % (Auto) % Lymph % (Auto) % [place] % (Auto) % Eos % (Auto) % Baso % (Auto) % Immature Gran # (Auto) (0.00-0.02) K/uL Neut # (Auto) (1.4-6.5) K/uL Lymph # (Auto) (1.2-3.4) K/uL [place] # (Auto) (0.11-0.59) K/uL Eos # (Auto) (0-0.5) K/uL Baso # (Auto) (0-0.2) K/uL Absolute Nucleated RBC (0-0) K/uL Nucleated RBC % (auto) % APTT 33.0 H (21.0-31.0) Seconds PTT Ratio 1.2 Sodium (136-145) mmol/L Potassium (3.5-5.1) mmol/L Chloride (98-107) mmol/L Carbon Dioxide (21-32) mmol/L Anion Gap (3-11) BUN (7-18) mg/dl Creatinine (0.6-1.4) mg/dl Est Cr Clr Drug Dosing ml/min Est GFR ( Amer) Est GFR (Non-Af Amer) BUN/Creatinine Ratio (10-20) Glucose (70-99) mg/dl POC Glucose 186 H (70-99) Calcium (8.5-10.1) mg/dl Phosphorus (2.5-4.9) mg/dl Magnesium (1.8-2.4) mg/dl Urine Color Dark Yellow Urine Appearance Cloudy A (Clear) Urine pH 5.0 (4.5-7.5) Ur Specific [place] 1.020 (1.000-1.030) Urine Protein Negative (Negative) Urine Glucose (UA) Negative (Negative) Urine Ketones Trace H (Negative) Urine Blood Negative (Negative) Urine Nitrite Negative (Negative) Urine Bilirubin Negative (Negative) Urine Urobilinogen Negative (Negative) Ur Leukocyte Esterase Negative (Negative) Urine WBC (Auto) 1-5 (0-5) /hpf Urine RBC (Auto) 0-4 (0-4) /hpf U Hyaline Cast (Auto) 10-30 H (0-5) /lpf U Epithel Cells (Auto) 10-20 H (0-5) /lpf Urine Bacteria (Auto) Negative (Negative) Amorphous Sediment Present A (None Prsent) Granular Casts 1-5 H (0) /lpf Urine Mucus Present A (None Prsent) Urine Yeast Not Reportable 04/12/19 Range/Units 11:17 WBC (4.8-10.8) K/uL RBC (4.7-6.1) M/uL Hgb (14.0-18.0) g/dL Hct (42-52) % MCV (80-100) fL MCH (25-34) pg MCHC (32-36) g/dL RDW Std Deviation (36.4-46.3) fL RDW Coeff of Abi (11.5-14.5) % Plt Count (130-400) K/uL MPV (7.4-10.4) fL Immature Gran % (Auto) % Neut % (Auto) % Lymph % (Auto) % [place] % (Auto) % Eos % (Auto) % Baso % (Auto) % Immature Gran # (Auto) (0.00-0.02) K/uL Neut # (Auto) (1.4-6.5) K/uL Lymph # (Auto) (1.2-3.4) K/uL [place] # (Auto) (0.11-0.59) K/uL Eos # (Auto) (0-0.5) K/uL Baso # (Auto) (0-0.2) K/uL Absolute Nucleated RBC (0-0) K/uL Nucleated RBC % (auto) % APTT (21.0-31.0) Seconds PTT Ratio Sodium (136-145) mmol/L Potassium (3.5-5.1) mmol/L Chloride (98-107) mmol/L Carbon Dioxide (21-32) mmol/L Anion Gap (3-11) BUN (7-18) mg/dl Creatinine (0.6-1.4) mg/dl Est Cr Clr Drug Dosing ml/min Est GFR ( Amer) Est GFR (Non-Af Amer) BUN/Creatinine Ratio (10-20) Glucose (70-99) mg/dl POC Glucose 146 H (70-99) Calcium (8.5-10.1) mg/dl Phosphorus (2.5-4.9) mg/dl Magnesium (1.8-2.4) mg/dl Urine Color Urine Appearance (Clear) Urine pH (4.5-7.5) Ur Specific [place] (1.000-1.030) Urine Protein (Negative) Urine Glucose (UA) (Negative) Urine Ketones (Negative) Urine Blood (Negative) Urine Nitrite (Negative) Urine Bilirubin (Negative) Urine Urobilinogen (Negative) Ur Leukocyte Esterase (Negative) Urine WBC (Auto) (0-5) /hpf Urine RBC (Auto) (0-4) /hpf U Hyaline Cast (Auto) (0-5) /lpf U Epithel Cells (Auto) (0-5) /lpf Urine Bacteria (Auto) (Negative) Amorphous Sediment (None Prsent) Granular Casts (0) /lpf Urine Mucus (None Prsent) Urine Yeast
--- NOTE | 2019-04-13 10:55 | Surgery Progress Note ---
Date of Service April 13, 2019 Assessment & Plan (1) Empyema, left: -plan for decortication, timing to be determined (2) Choledocholithiasis: -pt. underwent ERCP with stone removal -GI input noted: -abx. to continue x 2 weeks -upper GI bleed resolved with correction of INR and cessation of NSAIDS -no contra-indications noted for planned decortication Subjective Pt. notes breathing is short at times. no CP. He denies abdominal pain or diarrhea. Discussed with RN and no further melena. Physical Exam Constitutional: no acute distress Respiratory: BS are noticeably decreased on left. Gastrointestinal (Abdomen): abdomen distended, but no pain with palpation Results & Data Vital Signs (Past 12 Hours) Vital Signs Temp Pulse Pulse Pulse Resp BP BP 04/13/19 07:56 37.0 C 102 H 19 94/33 L 111/49 L 04/13/19 03:36 36.7 C 104 H 24 139/69 04/13/19 00:23 36.8 C 101 H 22 95/54 L 04/12/19 23:38 110 H Pulse Ox 04/13/19 07:56 98 04/13/19 03:36 98 04/13/19 00:23 97 04/12/19 23:38
--- NOTE | 2019-04-13 11:35 | Cardiology Progress Note ---
Date of Service April 13, 2019 Assessment & Plan (1) Empyema, left: Thoracic surgery input noted and appreciated. Tentative plan for VATS after patient is optimized. Patient is of course at high risk for anesthesia, but I do not think it is infectious issues will resolve without surgical intervention and this procedure is therefore considered lifesaving. (2) Ischemic cardiomyopathy: Creatinine stable at 1.73. Received furosemide 20 mg x 1 on 04/12/2019. We will give another 20 mg of IV furosemide to keep intake and output even, and hopefully a little bit negative. Blood pressure of 81/42 noted, as previously described, blood pressures are somewhat unreliable due to his atherosclerosis. (3) S/P TAVR (transcatheter aortic valve replacement): Status post TAVR with subsequent need for conversion to open bioprosthetic aortic valve replacement, mitral valve repair in 2017. (4) Choledocholithiasis: Biliary stent now in place. GI input noted and appreciated. Continue antibiotics, elective cholecystectomy in a few weeks after he recovers from VATS procedure. (5) GI bleeding: Hemoccult stable at 9.5 today, having been as low at 7.5 status post transfusion. Aspirin and Coumadin currently on hold. Subjective Chief complaint: Follow-up shortness of breath Subjective: Patient notes shortness of breath is slightly improved compared to his initial presentation. Telemetry reveals atrial fibrillation with mildly elevated ventricular rate in the 110's. Review of Systems Review of Systems: All systems reviewed & are unremarkable except as noted in HPI & below Physical Exam Physical Exam: Temp Pulse Resp BP Pulse Ox 36.6 C 105 H 19 81/42 L 92 04/13/19 11:13 04/13/19 11:13 04/13/19 11:13 04/13/19 11:13 04/13/19 11:13 Constitutional: + ill appearing Respiratory: Auscultation: + diminished lung sounds (Decreased breath sounds at the left base and midlung field mildly decreased breath sounds at the right base) Cardiovascular: Rate/Rhythm: + tachycardic and + irregularly irregular Heart Sounds: no murmur Vessels: no JVD Extremities: + edema (Trace to 1+ bilateral lower extremity edema, venous stasis changes) Neurologic: PERRL, EOMI, accommodation nl, no face palsy, no dysarthria Results & Data Vital Signs (Past 12 Hours) Vital Signs Temp Pulse Pulse Pulse Resp BP BP 04/13/19 11:13 36.6 C 105 H 19 81/42 L 04/13/19 07:56 37.0 C 102 H 19 94/33 L 111/49 L 04/13/19 03:36 36.7 C 104 H 24 139/69 04/13/19 00:23 36.8 C 101 H 22 95/54 L 04/12/19 23:38 110 H Pulse Ox 04/13/19 11:13 92 04/13/19 07:56 98 04/13/19 03:36 98 04/13/19 00:23 97 04/12/19 23:38 Laboratory Results Coagulation 04/13/19 Range/Units 05:41 APTT 33.0 H (21.0-31.0) Seconds CBC 04/13/19 Range/Units 05:41 WBC 16.43 H (4.8-10.8) K/uL RBC 3.47 L (4.7-6.1) M/uL Hgb 9.5 L (14.0-18.0) g/dL Hct 29.5 L (42-52) % Plt Count 234 (130-400) K/uL Neut # (Auto) 14.42 H (1.4-6.5) K/uL Lymph # (Auto) 0.47 L (1.2-3.4) K/uL [place] # (Auto) 1.18 H (0.11-0.59) K/uL Eos # (Auto) 0.07 (0-0.5) K/uL Baso # (Auto) 0.01 (0-0.2) K/uL Comprehensive Metabolic Panel 04/13/19 Range/Units 05:41 Sodium 136 (136-145) mmol/L Potassium 4.5 (3.5-5.1) mmol/L Chloride 106 (98-107) mmol/L Carbon Dioxide 21 (21-32) mmol/L BUN 70 H (7-18) mg/dl Creatinine 1.73 H (0.6-1.4) mg/dl Glucose 107 H (70-99) mg/dl Calcium 7.8 L (8.5-10.1) mg/dl Intake and Output 04/12/19 04/13/19 04/13/19 22:59 06:59 14:59 Intake Total 100 / 1060 Output Total 250 / 675 125 / 675 Balance -150 / 385 -125 / 385 Intake: Oral 100 / 1000 Output: Urine 250 / 675 125 / 675 Other: Other Intake Source sips Weight 110.6 kg
[2019-04-13] MEDS ORDERED: FUROSEMIDE 20 MG in SYRINGE 0 ML IV ONE ×2 (11:45→16:30)
[2019-04-13] MEDS: ERTAPENEM SODIUM 1,000 MG in SODIUM CHLORIDE 0.9% 50 ML IV SCH (12:06)
--- NOTE | 2019-04-13 15:04 | Cardiology Progress Note ---
Date of Service April 13, 2019 Subjective Patient reassessed. His progress was discussed with his RN. Pt has had progressive LE edema and abdominal distension. Did not have significant urine output after 20 mg of IV furosemide earlier today and yesterday. Will proceed with placement of Chandler catheter, and reassess urine output. Will then reconsider administering additional furosemide or perhaps milrinone. Pt agreeable to Chandler catheter. Need to optimize volume status to allow OR for VATS. Results & Data Vital Signs (Past 12 Hours) Vital Signs Temp Pulse Pulse Resp BP BP Pulse Ox 04/13/19 11:13 36.6 C 105 H 19 81/42 L 92 04/13/19 07:56 37.0 C 102 H 19 94/33 L 111/49 L 98 04/13/19 03:36 36.7 C 104 H 24 139/69 98
--- NOTE | 2019-04-13 16:25 | Cardiology Progress Note ---
Date of Service April 13, 2019 Subjective Chandler catheter now in place with 300 ml of urine output thus far. Will proceed with another dose of furosemide 20 mg IV x 1 now. Update chem panel in am. Spouse updated at the bedside Results & Data Vital Signs (Past 12 Hours) Vital Signs Temp Pulse Pulse Resp BP BP Pulse Ox 04/13/19 15:20 36.6 C 111 H 18 98/66 L 98 04/13/19 11:13 36.6 C 105 H 19 81/42 L 92 04/13/19 07:56 37.0 C 102 H 19 94/33 L 111/49 L 98
--- NOTE | 2019-04-13 18:37 | Hospitalist Progress Note ---
Date of Service deate of service noted below delayed entry April 13, 2019 Assessment & Plan (1) GI bleeding: Has been having GI bleed with melena and bloody stool at times Status post EGD-mild duodenitis but no evidence of active bleeding anywhere Status post ERCP-choledocholithiasis, extraction of stones and pus, stent placement and pancreatic duct No NSAID use and or aspirin for 5 days - Hg stable no signs of active GI bleeding (2) Cholecystitis: CT of the abdomen did show cholelithiasis and acute cholecystitis MRI scan supported cholecystitis ERCP shows cholangitis with cholecystitis - no abdominal pain continue Ertapenem IV (3) Septic shock: Septic shock secondary to community acquired pneumonia, cholangitis resolved (4) Pneumonia: Likely has left pleural effusion with empyema Thoracic surgery has been consulted-thoracotomy and tube placement has been on hold now on Ertapenem IV (5) S/P TAVR (transcatheter aortic valve replacement): no cardiac symptoms (6) Diabetes mellitus, type II: off Insulin drip and is being continued on basal/bolus therapy (7) Coronary artery disease: Medical management with aspirin, Lipitor. Losartan on hold in setting of MARISA. Toprol-XL on hold. Patient has EF 35% and is also on spironolactone which is not being given at this time. Cardiology following. (8) Ischemic cardiomyopathy: As above. Patient is declining defibrillator placement [employer] on board (9) Atrial fibrillation: anticoagulation held due to GI bleeding (10) Acute kidney injury: Likely secondary to septic shock. crea stable (11) DVT (deep venous thrombosis): Anticoagulation is on hold due to GI bleed which required 2 unit of blood transfusion Full code Subjective ff up for Cardiomyopathy, Empyema, Cholangitis seen resting in bed, appears weak, drowsy but awakens easily breathing is about the same as previous day no abdominal pain no chills no other symptoms Review of Systems Review of Systems: All systems reviewed & are unremarkable except as noted in HPI & below Physical Exam Physical Exam: General- oriented x 3, not in distress, speaks in sentences with no effort or accessory muscle use Head- atraumatic Eyes- PERRL, EOMI, anicteric ENT- oropharynx clear Neck- supple, no JVD, no adenopathy, no thyromegaly; carotids +2/2, no bruits appreciated Lungs- decreased breath sounds b/l bases, no wheezing Heart- normal rate, regular rhythm; no murmur, no gallop, no rub appreciated Abdomen- normal bowel sounds, nondistended, soft, nontender, no masses or hepatosplenomegaly Extremities- no pretibial edema, no calf tenderness; peripheral pulses intact Neuro- alert, oriented x 2; CN 2-12 grossly intact; motor 5/5 bilaterally;sensation 100% on all extremities; no other gross focal neurologic deficits Skin- warm & dry Results & Data Vital Signs (Past 12 Hours) Vital Signs Temp Pulse Pulse Resp BP BP Pulse Ox 04/13/19 15:20 36.6 C 111 H 18 98/66 L 98 04/13/19 11:13 36.6 C 105 H 19 81/42 L 92 04/13/19 07:56 37.0 C 102 H 19 94/33 L 111/49 L 98
[2019-04-13] MEDS: ATORVASTATIN 40 MG TAB PO SCH (20:58)
[2019-04-13] MEDS: ZOLPIDEM TARTRATE 5 MG TAB PO PRN (21:04)
[2019-04-14 07:12] LABS: Partial Thromboplastin Ratio 1.2; Partial Thromboplastin Time 31.3 Seconds (21.0-31.0)
[2019-04-14] MEDS: METOPROLOL TARTRATE 25 MG TAB PO SCH ×2 (07:29→20:44)
[2019-04-14 07:37] LABS: BUN Creatinine Ratio 48.1 (10-20); Creatinine Clr Calc Pharmacy 52.5 ml/min; Est GFR (African American) 50.8; Est GFR (Non-African American) 43.8; Potassium 4.7 mmol/L (3.5-5.1)
--- NOTE | 2019-04-14 08:33 | XRay Report ---
XR chest 1V portable CLINICAL HISTORY: left pleural effusion pleural effusion COMPARISON STUDY: 04/11/2019 FINDINGS: Unchanged in left pleural effusion. Mild stable cardiomegaly. Median sternotomy. Right lung is grossly clear. Slight accentuation right basal lung markings on a ch ronic basis. IMPRESSION: Unchanging, stable, left pleural effusion. Mild stable cardiomegaly. The above report was generated using voice recognition software. It may contain grammatical, syntax or spelling errors. Electronically signed by: Kenneth Ortiz M.D. 04/14/2019 8:31 AM
[2019-04-14] MEDS ORDERED: FUROSEMIDE 40 MG/4 ML VIAL IV STA (08:44)
[2019-04-14] MEDS: GABAPENTIN 100 MG CAP PO SCH ×3 (08:49→20:44)
[2019-04-14] MEDS: INSULIN GLARGINE SOLOSTAR 100 UNITS/ML 3 ML PEN SC SCH ×2 (08:49→20:40)
[2019-04-14] MEDS: MAGNESIUM OXIDE 400 MG TAB PO SCH (08:49)
[2019-04-14] MEDS: PANTOprazole 40 MG TAB PO SCH (08:49)
[2019-04-14] MEDS: INSULIN ASPART 100 UNITS/ML 3 ML PEN SC SCH ×4 (08:52→20:44)
[2019-04-14 09:32] LABS: Basophils # (auto) 0.02 K/uL (0-0.2); Basophils % (auto) 0.1 %; Eosinophils # (auto) 0.06 K/uL (0-0.5); Eosinophils % (auto) 0.4 %; Hematocrit (blood only) 29.6 % (42-52); Hemoglobin 9.6 g/dL (14.0-18.0); Immature Granulocytes # (auto) 0.29 K/uL (0.00-0.02); Immature Granulocytes % (auto) 1.7 %; Mean Corpuscular Hgb Conc 32.4 g/dL (32-36); Mean Corpuscular Volume 85.1 fL (80-100); Mean Platelet Volume 10.5 fL (7.4-10.4); Monocytes # (auto) 1.12 K/uL (0.11-0.59); Monocytes % (auto) 6.6 %; Neutrophils # (auto) 14.94 K/uL (1.4-6.5); Neutrophils % (auto) 88.2 %; Platelet Count 245 K/uL (130-400); RDW Coefficient of Variation 18.8 % (11.5-14.5); RDW Standard Deviation 57.7 fL (36.4-46.3); Red Blood Count 3.48 M/uL (4.7-6.1); White Blood Count 16.93 K/uL (4.8-10.8)
--- NOTE | 2019-04-14 09:44 | Cardiology Progress Note ---
Date of Service April 14, 2019 Assessment & Plan (1) Acute on chronic HFrEF (heart failure with reduced ejection fraction): History of ischemic cardiomyopathy, multivessel CAD and most recent cardiac catheterization in 2017, 2 of 3 bypass grafts are patent at the time of his work-up in 2017. For ventricular ejection fraction 30 to 35% on echocardiogram performed this admission. Chandler catheter placed 04/13/2019, with 1.1 L of urine output noted as of this morning for 24-hour interval of the patient was still +1 L in terms of his fluid balance yesterday. Most recent systolic blood pressure is 96 mmHg, per review of outpatient records, he does have chronic low blood pressure, will proceed with furosemide 40 mg as his creatinine has actually improved from 1.7-1.5 today and electrolytes are stable. (2) Empyema, left: Continue to optimize volume status, pending decortication of a 16 x 10 cm left fluid collection. (3) S/P TAVR (transcatheter aortic valve replacement): Aortic valve stenosis for which he underwent transcatheter aortic valve replacement in 2017, this was complicated by prosthetic fracture and required emergent open surgical aortic valve replacement mitral valve repair. Aortic valve gradients were stable on most recent echocardiogram. (4) Atrial fibrillation: Metoprolol held this morning due to blood pressure less than 100 millimeters Hg. Coumadin on hold, aspirin on hold due to GI bleeding, pending surgery. This of course is not ideal given his risk of ischemic heart event or stroke, but given his bleeding circumstance, necessary. (5) Anemia: We will repeat CBC tomorrow. (6) Choledocholithiasis: Plan for tentative laparoscopic cholecystectomy in a few weeks, once he recovers from lung decortication. Subjective Chief complaint: Follow-up volume overload generalized weakness Subjective: Patient states he has ongoing generalized weakness, he feels his abdominal bloating and scrotal swelling is improved. Review of Systems Review of Systems: All systems reviewed & are unremarkable except as noted in HPI & below Physical Exam Physical Exam: Temp Pulse Resp BP Pulse Ox 36.4 C L 107 H 16 96/59 L 95 04/14/19 07:16 04/14/19 07:16 04/14/19 07:16 04/14/19 07:16 04/14/19 07:16 Constitutional: + ill appearing; no acute distress Respiratory: Auscultation: + diminished lung sounds (Decreased breath sounds at the left base and midlung field, mildly decreased breath sounds the right lung field at the base); no crackles, no rales and no rhonchi Cardiovascular: Rate/Rhythm: + tachycardic and + irregularly irregular Heart Sounds: no murmur Vessels: + JVD Extremities: + edema (1+ bilateral lower extremity edema, slightly improved compared to 04/13/19) Gastrointestinal (Abdomen): normal bowel sounds, soft, nontender, no hepatosplenomegaly Neurologic: PERRL, EOMI, accommodation nl, no face palsy, no dysarthria Genitourinary: Clear concentrated yellow urine noted Results & Data Vital Signs (Past 12 Hours) Vital Signs Temp Pulse Pulse Resp BP Pulse Ox 04/14/19 07:16 36.4 C L 107 H 16 96/59 L 95 04/14/19 03:38 36.4 C L 98 H 19 91/39 L 97 04/13/19 23:59 107 H 04/13/19 23:16 37.1 C 100 H 20 94/47 L 93 Laboratory Results Coagulation 04/14/19 Range/Units 06:51 APTT 31.3 H (21.0-31.0) Seconds CBC 04/14/19 Range/Units 06:53 WBC 16.93 H (4.8-10.8) K/uL RBC 3.48 L (4.7-6.1) M/uL Hgb 9.6 L (14.0-18.0) g/dL Hct 29.6 L (42-52) % Plt Count 245 (130-400) K/uL Neut # (Auto) 14.94 H (1.4-6.5) K/uL Lymph # (Auto) 0.50 L (1.2-3.4) K/uL [place] # (Auto) 1.12 H (0.11-0.59) K/uL Eos # (Auto) 0.06 (0-0.5) K/uL Baso # (Auto) 0.02 (0-0.2) K/uL Comprehensive Metabolic Panel 04/14/19 Range/Units 06:51 Sodium 138 (136-145) mmol/L Potassium 4.7 (3.5-5.1) mmol/L Chloride 107 (98-107) mmol/L Carbon Dioxide 24 (21-32) mmol/L BUN 74 H (7-18) mg/dl Creatinine 1.54 H (0.6-1.4) mg/dl Glucose 92 (70-99) mg/dl Calcium 8.0 L (8.5-10.1) mg/dl Intake and Output 04/13/19 04/14/19 04/14/19 22:59 06:59 14:59 Intake Total 560 / 2170 250 / 2170 Output Total 650 / 1100 350 / 1100 Balance -90 / 1070 -100 / 1070 Intake: Oral 560 / 2110 250 / 2110 Output: Urine 350 / 450 Urine Amount (Catheter) 300 / 650 350 / 650 Chandler/Indwelling 300 / 650 350 / 650 Other: Weight 110.6 kg 111.1 kg
[2019-04-14] MEDS ORDERED: ALBUMIN 25% 50 ML IV ONE (10:15)
[2019-04-14] MEDS ORDERED: FUROSEMIDE 40 MG/4 ML VIAL IV ONE ×3 (11:03→13:44)
[2019-04-14] MEDS: ERTAPENEM SODIUM 1,000 MG in SODIUM CHLORIDE 0.9% 50 ML IV SCH (11:45)
[2019-04-14] MEDS ORDERED: FUROSEMIDE 40 MG in SYRINGE 0 ML IV ONE (14:00)
--- NOTE | 2019-04-14 14:20 | Pharmacy Report ---
Pharmacy Glycemic Short Note 2 - Date of Service April 14, 2019 - Glycemic Short BSG Results (Last 24 hours): 04/13/19 04/14/19 04/14/19 20:11 06:51 07:30 Glucose 92 POC Glucose 218 H 102 H 04/14/19 11:03 Glucose POC Glucose 151 H OUTPATIENT ANTIDIABETIC REGIMEN: * glipizide 5mg QD * Lantus 75-100 units QD-per patient, dose varies based on BSG * HbA1c: 7.9% ASSESSMENT: 04/14: Fasting and post prandial BSGs much improved from yesterday. Will slightly loosen carb coverage and evening lantus scale to prevent overshooting. Patient received 125 units of insulin yesterday and 90 units the day before. Patient remains on a full liquid diet 04/12: BSGs in the 300s yesterday evening, likely due to basal deficiency. Will adjust AM lantus scale to help make up this deficiency. Today's FBS WNL. Will continue with HS lantus supplementation. PLAN FOR INPATIENT GLYCEMIC CONTROL: * Hold outpatient oral diabetes medications * Basal: * Lantus 30 units SQ this morning * HS scale: 20 units for BSGs <200, > or equal to 200 give 25 units * Bolus insulin - tightened * NovoLog per scale ACHS * Correction factor 1:15 * Carb ratio: 1:5
[2019-04-14 15:49] LABS: Hematocrit (blood only) 30.8 % (42-52); Hemoglobin 10.1 g/dL (14.0-18.0)
--- NOTE | 2019-04-14 17:18 | Progress Note ---
DATE: 04/14/2019 Mr. Bustillo was seen today. Dr. Diaz's input is much appreciated as is Dr. Burleson's and Dr. Duff's. Unfortunately, at this point I simply do not feel this patient is going to do well with a decortication. Problem is that he has so many issues and it is difficult for me to say if his left pleural fluid is what is causing a problem. He is not going to tolerate a thoracoscopy well, in fact he is not going to tolerate general anesthesia well. Hemoglobin is 10.1, he does not have evidence of active bleeding. He has a cardiomyopathy. His most recent blood cultures have no evidence of growth. He did grow E. coli from his pleural fluid last week. Problem is that there is thickened fluid, I do not think we are going to drain this by chest tube or by drainage. I attempted to drain him and could not get any fluid back whatsoever. Having said that, decortication is going to be tolerated poorly. I would like to see him better. We will continue to follow along with him and hopefully he will improve with time. PAMELLA
--- NOTE | 2019-04-14 18:09 | Hospitalist Progress Note ---
Date of Service April 14, 2019 Assessment & Plan (1) Septic shock: Secondary to empyema and cholangitis management noted below Blood pressure stable (2) Cholecystitis: Chronic cholecystitis, cholangitis, choledocholithiasis Status post ERCP with stone removal and stent placement General surgery on board, plan for eventual cholecystectomy versus cholecystostomy tube placement when patient is medically stable Continue ertapenem IV (3) Pneumonia: Left-sided empyema Chronic respiratory failure with 2 L nasal cannula. Thoracic surgeon on board Plan for possible thoracotomy when patient is medically stable Continue ertapenem IV (4) GI bleeding: Hemoglobin stable after blood transfusion and discontinuation of anticoagulation Hemoglobin 10.1 Anticoagulation on hold at this time (5) Ischemic cardiomyopathy: Declines defibrillator placement Recently volume overloaded Lasix IV being titrated by cardiology service (6) S/P TAVR (transcatheter aortic valve replacement): No chest pain, shortness of breath (7) Diabetes mellitus, type II: On Lantus and insulin sliding scale Blood glucose levels within acceptable range (8) Atrial fibrillation: Continue metoprolol Anticoagulation on hold secondary to GI bleeding (9) Coronary artery disease: Medical management with aspirin, Lipitor. Losartan on hold in setting of MARISA. (10) Acute kidney injury: Likely secondary to septic shock. Continue IV fluids, avoid nephrotoxic substances. Hold losartan. Kidney function remains stable (11) DVT (deep venous thrombosis): Anticoagulation is on hold due to GI bleed which required 2 unit of blood transfusion Full code Disposition Pending Subjective Follow-up for empyema, cholangitis, ischemic cardiomyopathy Seen sitting up in bed, comfortable, not in distress, sleeping but easily awakened States he feels okay overall Denies shortness of breath, cough, sputum, fevers or chills Denies abdominal pain, nausea vomiting No other symptoms Review of Systems Review of Systems: All systems reviewed & are unremarkable except as noted in HPI & below Physical Exam Physical Exam: General- oriented x 2, not in distress, speaks in sentences with no effort or accessory muscle use Eyes- anicteric Neck- no JVD Lungs-decreased breath sounds left mid to base, clear breath sounds on the right Heart- normal rate, regular rhythm; no murmurs Abdomen- normal bowel sounds, nondistended, soft, nontender Extremities-positive grade 1 lower leg edema, no tenderness Neuro- alert, oriented x 2; no gross focal neurologic deficits Skin- warm & dry Results & Data Vital Signs (Past 12 Hours) Vital Signs Temp Pulse Pulse Resp BP BP Pulse Ox 04/14/19 16:00 103 H 04/14/19 15:13 36.7 C 110 H 19 113/76 99 04/14/19 13:50 101/62 04/14/19 11:35 36.8 C 110 H 22 114/54 L 96 04/14/19 07:16 36.4 C L 107 H 16 96/59 L 95 Laboratory Results Laboratory Results - last 24 hr 04/13/19 04/14/19 04/14/19 20:11 06:51 06:51 WBC RBC Hgb Hct MCV MCH MCHC RDW Std Deviation RDW Coeff of Abi Plt Count MPV Immature Gran % (Auto) Neut % (Auto) Lymph % (Auto) [place] % (Auto) Eos % (Auto) Baso % (Auto) Immature Gran # (Auto) Neut # (Auto) Lymph # (Auto) [place] # (Auto) Eos # (Auto) Baso # (Auto) APTT 31.3 H PTT Ratio 1.2 Sodium 138 Potassium 4.7 Chloride 107 Carbon Dioxide 24 Anion Gap 7.0 BUN 74 H Creatinine 1.54 H Est Cr Clr Drug Dosing 52.5 Est GFR ( Amer) 50.8 Est GFR (Non-Af Amer) 43.8 BUN/Creatinine Ratio 48.1 H Glucose 92 POC Glucose 218 H Calcium 8.0 L Magnesium 3.0 H 04/14/19 04/14/19 04/14/19 06:53 07:30 11:03 WBC 16.93 H RBC 3.48 L Hgb 9.6 L Hct 29.6 L MCV 85.1 MCH 27.6 MCHC 32.4 RDW Std Deviation 57.7 H RDW Coeff of Abi 18.8 H Plt Count 245 MPV 10.5 H Immature Gran % (Auto) 1.7 Neut % (Auto) 88.2 Lymph % (Auto) 3.0 [place] % (Auto) 6.6 Eos % (Auto) 0.4 Baso % (Auto) 0.1 Immature Gran # (Auto) 0.29 H Neut # (Auto) 14.94 H Lymph # (Auto) 0.50 L [place] # (Auto) 1.12 H Eos # (Auto) 0.06 Baso # (Auto) 0.02 APTT PTT Ratio Sodium Potassium Chloride Carbon Dioxide Anion Gap BUN Creatinine Est Cr Clr Drug Dosing Est GFR ( Amer) Est GFR (Non-Af Amer) BUN/Creatinine Ratio Glucose POC Glucose 102 H 151 H Calcium Magnesium 04/14/19 04/14/19 15:31 16:18 WBC RBC Hgb 10.1 L Hct 30.8 L MCV MCH MCHC RDW Std Deviation RDW Coeff of Abi Plt Count MPV Immature Gran % (Auto) Neut % (Auto) Lymph % (Auto) [place] % (Auto) Eos % (Auto) Baso % (Auto) Immature Gran # (Auto) Neut # (Auto) Lymph # (Auto) [place] # (Auto) Eos # (Auto) Baso # (Auto) APTT PTT Ratio Sodium Potassium Chloride Carbon Dioxide Anion Gap BUN Creatinine Est Cr Clr Drug Dosing Est GFR ( Amer) Est GFR (Non-Af Amer) BUN/Creatinine Ratio Glucose POC Glucose 143 H Calcium Magnesium
[2019-04-14] MEDS: ACETAMINOPHEN 500 MG TAB PO PRN (20:43)
[2019-04-14] MEDS: ATORVASTATIN 40 MG TAB PO SCH (20:43)
[2019-04-14] MEDS: ZOLPIDEM TARTRATE 5 MG TAB PO PRN (20:43)
[2019-04-15 06:22] LABS: Hematocrit (blood only) 30.3 % (42-52); Hemoglobin 9.8 g/dL (14.0-18.0); Mean Corpuscular Hgb Conc 32.3 g/dL (32-36); Mean Corpuscular Volume 84.6 fL (80-100); Mean Platelet Volume 10.2 fL (7.4-10.4); Platelet Count 235 K/uL (130-400); RDW Standard Deviation 57.5 fL (36.4-46.3); Red Blood Count 3.58 M/uL (4.7-6.1); White Blood Count 16.65 K/uL (4.8-10.8)
[2019-04-15 06:35] LABS: Partial Thromboplastin Ratio 1.2; Partial Thromboplastin Time 31.6 Seconds (21.0-31.0)
[2019-04-15 06:49] LABS: Basophils # (auto) 0.02 K/uL (0-0.2); Basophils % (auto) 0.1 %; Echinocytes 1+; Eosinophils # (auto) 0.02 K/uL (0-0.5); Eosinophils % (auto) 0.1 %; Immature Granulocytes # (auto) 0.12 K/uL (0.00-0.02); Immature Granulocytes % (auto) 0.7 %; Monocytes # (auto) 0.92 K/uL (0.11-0.59); Monocytes % (auto) 5.5 %; Neutrophils # (auto) 15.07 K/uL (1.4-6.5); Neutrophils % (auto) 90.6 %; Ovalocytes 1+; Tear Drop Cells 1+
[2019-04-15 06:52] LABS: BUN Creatinine Ratio 50.8 (10-20); Calcium 8.2 mg/dl (8.5-10.1); Creatinine Clr Calc Pharmacy 60.9 ml/min; Est GFR (African American) 60.1; Est GFR (Non-African American) 51.8; Potassium 4.3 mmol/L (3.5-5.1)
[2019-04-15] MEDS: INSULIN ASPART 100 UNITS/ML 3 ML PEN SC SCH ×4 (08:39→20:37)
[2019-04-15] MEDS: INSULIN GLARGINE SOLOSTAR 100 UNITS/ML 3 ML PEN SC SCH ×2 (08:41→20:38)
[2019-04-15] MEDS: GABAPENTIN 100 MG CAP PO SCH ×3 (08:42→20:36)
[2019-04-15] MEDS: MAGNESIUM OXIDE 400 MG TAB PO SCH (08:42)
[2019-04-15] MEDS: PANTOprazole 40 MG TAB PO SCH (08:42)
[2019-04-15] MEDS ORDERED: ALBUMIN 25% 50 ML with FUROSEMIDE 40 MG IV SCH (09:00)
[2019-04-15] MEDS: ACETAMINOPHEN 500 MG TAB PO PRN (10:01)
[2019-04-15] MEDS: ERTAPENEM SODIUM 1,000 MG in SODIUM CHLORIDE 0.9% 50 ML IV SCH (10:02)
[2019-04-15] MEDS: METOPROLOL TARTRATE 25 MG TAB PO SCH ×2 (12:36→20:36)
--- NOTE | 2019-04-15 12:50 | Cardiology Progress Note ---
Date of Service April 15, 2019 Assessment & Plan (1) Acute on chronic HFrEF (heart failure with reduced ejection fraction): Continue metoprolol. Continue diuretic therapy with furosemide 40 mg IV twice daily, along with albumin, at 9 AM and 5 PM, x 4 doses. Not on ACEI / ARB or entresto due to relative hypotension. Will reassess candidacy daily. (2) Empyema, left: Discussed with Dr Paula. High risk for operative procedure / anesthesia. Thoracentesis previously attempted however unsuccessful, he plans to reassess the least invasive but effective approach. Continue IV antibiotics for now. (3) S/P TAVR (transcatheter aortic valve replacement): Stable gradients on recent echo. LVEF 30-35%. (4) Atrial fibrillation: Continue metoprolol. ASA and coumadin on hold due to GI bleeding / anemia (5) Anemia: Hgb stable. (6) Choledocholithiasis: Lap delmy after recovers from more acute problems. DVT prophylaxis: SCDS. Subjective Chief complaint: Follow-up shortness of breath generalized fatigue Subjective: Patient ongoing fatigue, no appreciable subjective change. Ongoing atrial fibrillation with rates in the low 100 bpm range noted. Blood pressure stable. Urine output picked up yesterday with negative fluid balance of 2.3 L having received 40 mg of Lasix 2 times yesterday as well as 1 dose of albumin intravenously. Review of Systems Review of Systems: All systems reviewed & are unremarkable except as noted in HPI & below Physical Exam Physical Exam: Temp Pulse Resp BP Pulse Ox 36.4 C L 98 H 18 109/55 L 98 04/15/19 11:02 04/15/19 11:02 04/15/19 11:02 04/15/19 11:02 04/15/19 11:02 Constitutional: + ill appearing; no acute distress Respiratory: Auscultation: + diminished lung sounds (Decreased breath sounds bilaterally, left worse than right) Cardiovascular: Rate/Rhythm: + tachycardic and + irregularly irregular Vess els: + JVD Extremities: + edema (1+ bilateral lower extremity edema) Gastrointestinal (Abdomen): normal bowel sounds, soft, nontender, no hepatosplenomegaly Neurologic: PERRL, EOMI, accommodation nl, no face palsy, no dysarthria Results & Data Vital Signs (Past 12 Hours) Vital Signs Temp Pulse Resp BP Pulse Ox 04/15/19 11:02 36.4 C L 98 H 18 109/55 L 98 04/15/19 07:41 36.6 C 111 H 18 93/53 L 97 04/15/19 04:00 36.5 C 103 H 20 94/66 L 98 Laboratory Results Coagulation 04/15/19 Range/Units 06:03 APTT 31.6 H (21.0-31.0) Seconds CBC 04/14/19 04/15/19 Range/Units 15:31 06:03 WBC 16.65 H (4.8-10.8) K/uL RBC 3.58 L (4.7-6.1) M/uL Hgb 10.1 L 9.8 L (14.0-18.0) g/dL Hct 30.8 L 30.3 L (42-52) % Plt Count 235 (130-400) K/uL Neut # (Auto) 15.07 H (1.4-6.5) K/uL Lymph # (Auto) 0.50 L (1.2-3.4) K/uL [place] # (Auto) 0.92 H (0.11-0.59) K/uL Eos # (Auto) 0.02 (0-0.5) K/uL Baso # (Auto) 0.02 (0-0.2) K/uL Comprehensive Metabolic Panel 04/15/19 Range/Units 06:03 Sodium 138 (136-145) mmol/L Potassium 4.3 (3.5-5.1) mmol/L Chloride 106 (98-107) mmol/L Carbon Dioxide 24 (21-32) mmol/L BUN 68 H (7-18) mg/dl Creatinine 1.34 (0.6-1.4) mg/dl Glucose 93 (70-99) mg/dl Calcium 8.2 L (8.5-10.1) mg/dl Intake and Output 04/14/19 04/15/19 04/15/19 22:59 06:59 14:59 Intake Total 100 / 695 114 / 114 Output Total 1750 / 3051 500 / 3051 Balance -1650 / -2356 -500 / -2356 114 / 114 Intake: IV 114 / 114 INVanz 1,000 MG In Nss 50 ml @ 60 / 60 100 mls/hr IV Q24H ZAHRA Rx#: [id number] Albumin 25% 50 ml @ 54 mls/hr 54 / 54 IV BID ZAHRA with Lasix 40 mg Rx# :[id number] Oral 100 / 585 Output: Urine Amount (Catheter) 1750 / 3050 500 / 3050 [place]/Indwelling 1750 / 3050 500 / 3050 Other: Other Intake Source sips Weight 113 kg
[2019-04-15] MEDS: ALBUMIN 25% 50 ML with FUROSEMIDE 40 MG IV SCH (17:23)
--- NOTE | 2019-04-15 18:51 | Hospitalist Progress Note ---
Date of Service April 15, 2019 Assessment & Plan (1) Septic shock: Secondary to empyema and cholangitis management noted below Blood pressure stable (2) Pneumonia: Left-sided empyema Chronic respiratory failure with 2 L nasal cannula. Thoracic surgeon on board Chest x-ray: Persistent right-sided pleural effusion Remains afebrile, white count 16,000 May need decortication when medically stable, optimized Continue ertapenem IV We will consult ID for antibiotic management (3) Cholecystitis: Chronic cholecystitis, cholangitis, choledocholithiasis Status post ERCP with stone removal and stent placement General surgery on board, plan for eventual cholecystectomy versus cholecystostomy tube placement when patient is medically stable Continue ertapenem IV (4) GI bleeding: Hemoglobin stable after blood transfusion and discontinuation of anticoagulation Hemoglobin stable, 9.8 Anticoagulation on hold at this time (5) Ischemic cardiomyopathy: Declines defibrillator placement Presently, volume overloaded Lasix IV plus albumin started today, diuretics being titrated by cardiology service (6) S/P TAVR (transcatheter aortic valve replacement): No chest pain, shortness of breath (7) Diabetes mellitus, type II: On Lantus and insulin sliding scale Blood glucose levels within acceptable range (8) Atrial fibrillation: Continue metoprolol Anticoagulation on hold secondary to GI bleeding (9) Coronary artery disease: Medical management with aspirin, Lipitor. Losartan on hold in setting of MARISA. (10) Acute kidney injury: Likely secondary to septic shock. Continue IV fluids, avoid nephrotoxic substances. Hold losartan. Kidney function remains stable (11) DVT (deep venous thrombosis): Anticoagulation is on hold due to GI bleed which required 2 unit of blood transfusion Full code Disposition Pending Subjective Follow-up for empyema, cholangitis, ischemic cardia myopathy Seen resting in bedside chair, having lunch, patient's at the bedside Awake, alert, oriented x2 Denies shortness of breath, coughing, fevers or chills No abdominal pain Feels tired, but patient's reports this is the most alert that she has seen him, thinks that he appears to have more energy today No other symptoms Review of Systems Review of Systems: All systems reviewed & are unremarkable except as noted in HPI & below Physical Exam Physical Exam: General- oriented x 2, not in distress, speaks in sentences with no effort or accessory muscle use Head- atraumatic Eyes- PERRL, EOMI, anicteric ENT- oropharynx clear Neck- supple, no JVD, no adenopathy, no thyromegaly; carotids +2/2, no bruits appreciated Lungs-positive decreased breath sounds on the right base, clear on the left Heart- normal rate, regular rhythm; no murmur, no gallop, no rub appreciated Abdomen- normal bowel sounds, nondistended, soft, nontender, no masses or hepatosplenomegaly Extremities-grade 1 lower leg edema, no calf tenderness; peripheral pulses intact Neuro- alert, oriented x2; CN 2-12 grossly intact; motor 5/5 bilaterally;sensation 100% on all extremities; no other gross focal neurologic deficits Skin- warm & dry Results & Data Vital Signs (Past 12 Hours) Vital Signs Temp Pulse Pulse Resp BP Pulse Ox 04/15/19 16:00 97 H 04/15/19 15:43 36.5 C 98 H 18 125/85 97 04/15/19 11:02 36.4 C L 98 H 18 109/55 L 98 04/15/19 07:41 36.6 C 111 H 18 93/53 L 97
[2019-04-15] MEDS: ATORVASTATIN 40 MG TAB PO SCH (20:36)
[2019-04-16] MEDS: ACETAMINOPHEN 500 MG TAB PO PRN ×2 (01:46→18:12)
[2019-04-16 06:36] LABS: Calcium 7.9 mg/dl (8.5-10.1); Creatinine Clr Calc Pharmacy 72.2 ml/min; Est GFR (African American) 73.8; Est GFR (Non-African American) 63.7; Potassium 4.2 mmol/L (3.5-5.1)
--- NOTE | 2019-04-16 08:15 | Progress Note ---
DATE: 04/16/2019 Mr. Bustillo was seen today. Mr. Bustillo is not doing well. I am concerned about this fluid in his chest; however, he is in no condition to tolerate general anesthesia or a decortication. At this point, I have attempted to put a PleurX catheter in several different spaces, but I am going to try again as he simply is not getting better. I am going to order another CT scan today without contrast and I will see him later this afternoon and we will see about perhaps putting a PleurX in. His white count remains elevated at 16,650 yesterday. He has remained afebrile, but he has markedly decreased breath sounds and did grow up organisms from this. His hemoglobin is now stable. He still does not appear to be in condition for any type of surgical procedure. I discussed this with Dr. Bryant Diaz yesterday.
[2019-04-16] MEDS: INSULIN ASPART 100 UNITS/ML 3 ML PEN SC SCH ×4 (09:01→20:21)
[2019-04-16] MEDS: GABAPENTIN 100 MG CAP PO SCH ×3 (09:03→20:11)
[2019-04-16] MEDS: INSULIN GLARGINE SOLOSTAR 100 UNITS/ML 3 ML PEN SC SCH ×2 (09:03→20:22)
[2019-04-16] MEDS: ALBUMIN 25% 50 ML with FUROSEMIDE 40 MG IV SCH ×2 (09:04→17:48)
[2019-04-16] MEDS: MAGNESIUM OXIDE 400 MG TAB PO SCH (09:05)
[2019-04-16] MEDS: PANTOprazole 40 MG TAB PO SCH (09:05)
--- NOTE | 2019-04-16 09:10 | CT Scan Report ---
CT chest wo con CLINICAL HISTORY: 74 years-old Male presenting with left empyema. TECHNIQUE: Multidetector CT imaging of the chest was performed without the use of intravenous contras t. IV contrast: None. One or more dose lowering techniques were used consistent with the principles o f ALARA (as low as reasonably achievable), including automatic exposure control, mA or kV adjustment to individual patient size, and/or use of iterative reconstruction. COMPARISON: 04/07/2019. CT DOSE (mGy.cm): The estimated cumulative dose is 694.07. FINDINGS: [employer] topogram: Left pleural effusion. Soft tissues: Normal thyroid and thoracic inlet. Gynecomastia. Numerous prominent mediastinal lymph n odes increased from prior. Calcified mediastinal lymph nodes are also noted. Evaluation of the liz l imited in the absence of intravenous contrast. Atherosclerosis of the aorta. Postsurgical changes of median sternotomy and suspected coronary artery bypass grafting. Extensive aortic valve and coronary artery calcification. Mitral annular calcification. Multichamber enlargement of the heart. Significan t interval worsening of bilateral pleural effusions, which are moderate in size, simple on the right and complex on the left. Extensive left pleural thickening is again noted. Small amount of abdominal ascites. Possible nodular contour of the liver suggest underlying fibrosis. Lungs and airways: No pneumothorax. Subsegmental airways in the left lower lobe are occluded. More ce ntral airways remain patent. Pulmonary arteries enlarged relative to adjacent bronchi in the left félix g. Interlobular septal thickening evident to a significantly greater degree in the left lung. Extensi ve volume loss and consolidation consistent with atelectasis in the left lung primarily in the left l ower lobe and lingula. Punctate calcification noted in the left lower lobe. Passive atelectasis also evident now in the right lower lobe. Mild diffuse added density of the lungs. Musculoskeletal: Degenerative changes of the spine. Chronic fracture of the posterior left 10th rib. IMPRESSION: 1. Significant interval increase in bilateral pleural effusions. 2. Complicated left pleural effusion with pleural thickening. Underlying empyema is not excluded. Co rrelate with thoracentesis. 3. Extensive atelectasis of the left lung. The presence of underlying punctate calcification could s uggest chronic aspiration or fibrotic change among other etiologies. 4. Congestive changes in the left lung in the setting of cardiomegaly and volume overload. 5. Increased right basilar passive atelectasis in the setting of the effusion. 6. Worsened mediastinal lymphadenopathy. This is most likely reactive and could point to an underlyi ng infection. This should be followed to resolution. Electronically signed by: Yoan Delgado M.D. 04/16/2019 9:09 AM
[2019-04-16] MEDS: METOPROLOL TARTRATE 25 MG TAB PO SCH ×2 (10:32→20:11)
[2019-04-16] MEDS: ERTAPENEM SODIUM 1,000 MG in SODIUM CHLORIDE 0.9% 50 ML IV SCH (10:32)
[2019-04-16 10:48] LABS: Basophils # (auto) 0.02 K/uL (0-0.2); Basophils % (auto) 0.1 %; Eosinophils # (auto) 0.06 K/uL (0-0.5); Eosinophils % (auto) 0.4 %; Hematocrit (blood only) 29.7 % (42-52); Hemoglobin 9.6 g/dL (14.0-18.0); Immature Granulocytes # (auto) 0.08 K/uL (0.00-0.02); Immature Granulocytes % (auto) 0.5 %; Lymphocytes # (auto) 0.33 K/uL (1.2-3.4); Lymphocytes % (auto) 2.1 %; Mean Corpuscular Hgb Conc 32.3 g/dL (32-36); Mean Corpuscular Volume 86.6 fL (80-100); Mean Platelet Volume 9.9 fL (7.4-10.4); Monocytes # (auto) 0.86 K/uL (0.11-0.59); Monocytes % (auto) 5.5 %; Neutrophils # (auto) 14.18 K/uL (1.4-6.5); Neutrophils % (auto) 91.4 %; Platelet Count 228 K/uL (130-400); RDW Standard Deviation 59.3 fL (36.4-46.3); Red Blood Count 3.43 M/uL (4.7-6.1); White Blood Count 15.53 K/uL (4.8-10.8)
--- NOTE | 2019-04-16 11:00 | Infectious Disease Consult ---
Date of Consultation April 16, 2019 Assessment & Plan (1) Empyema, left: 74-year-old male with chronic cholecystitis, cholangitis, choledocholithiasis, and now empyema of the left chest with ESBL producing E. coli. Failure to improve most likely due to lack of source control, and agree with Dr. would like that attempt at drainage of left chest should be reattempted. I am also concerned about the status of his cholecystitis and will consider follow-up CT scan of the abdomen to further evaluate. For now, ertapenem should be providing appropriate coverage. Will discuss with all involved. Will follow. (2) Cholecystitis, chronic: (3) Infection due to ESBL-producing Escherichia coli: History of Present Illness Reason for Consultation: Empyema, ESBL E. coli, cholecystitis Attending Physician: Taj Durham MD History of Present Illness 74-year-old male with history of ischemic cardiomyopathy, transcatheter aortic valve replacement, coronary artery disease, hyperlipidemia, type 2 diabetes mellitus, hypertension, who was originally admitted to the hospital on April 05 with sepsis with finding of left lower lobe pneumonia with effusion, as well as evidence of acute cholecystitis and cholangitis. He has been found to have empyema of the left chest with cultures positive for ESBL E. coli. Has also un dergone endoscopy with biliary stenting. Has been treated with ertapenem. Remains quite ill with abdominal pain, shortness of breath. White count remains elevated. Blood cultures have been negative. Repeat attempts at drainage of empyema have been unsuccessful so far. Allergies Allergy/AdvReac Type Severity Reaction Status Date / Time lisinopril AdvReac Intermediate COUGH Verified 04/05/19 21:24 Home Medications Home Medications Medication Instructions Recorded Confirmed Type acetaminophen [Tylenol Extra 500 mg PO Q4 PRN 04/05/19 04/05/19 History Strength] aspirin [Aspir-81] 81 mg PO DAILY 04/05/19 04/05/19 History atorvastatin 40 mg PO HS 04/05/19 04/05/19 History buspirone 2.5 mg PO BID 04/05/19 04/05/19 History docusate sodium 100 mg PO BID PRN 04/05/19 04/05/19 History gabapentin 600 mg PO TID 04/05/19 04/05/19 History glipizide 5 mg PO DAILY 04/05/19 04/05/19 History insulin glargine [Lantus U-100 0 unit SUBCUT DAILY 04/05/19 04/05/19 History Insulin] losartan 12.5 mg PO DAILY 04/05/19 04/05/19 History magnesium oxide 400 mg PO QAM 04/05/19 04/05/19 History metoprolol succinate 25 mg PO DAILY 04/05/19 04/05/19 History nitroglycerin [Nitrostat] 0.4 mg SUBLINGUAL DIRECTED PRN 04/05/19 04/05/19 History polyethylene glycol 3350 [Miralax] 17 g PO DAILY PRN 04/05/19 04/05/19 History sennosides 8.6 mg PO DAILY PRN 04/05/19 04/05/19 History spironolactone 25 mg PO DAILY 04/05/19 04/05/19 History tamsulosin [Flomax] 0.4 mg PO HS 04/05/19 04/05/19 History torsemide 20 mg PO QPM 04/05/19 04/05/19 History torsemide 40 mg PO QAM 04/05/19 04/05/19 History warfarin 5 mg PO DAILY 04/05/19 04/05/19 History zolpidem 5 mg PO HS PRN 04/05/19 04/05/19 History Patient History Medical History Cholecystitis, chronic Sepsis (Acute 08/24/14) Atrial fibrillation (Chronic) Coronary artery disease (Chronic) Dyslipidemia (Chronic) Diabetes mellitus, type II (Chronic) Hypertension (Chronic) Stroke (Chronic) Difficult airway (Chronic) Diabetic neuropathy (Chronic) History of renal calculi (Chronic) Aortic stenosis (Chronic) "severe per echo 06/17/14" CHF (congestive heart failure) (Chronic) "LVEF 30-35% by echo 06/17/14" Ulcer of toe due to diabetes mellitus (Acute) Respiratory failure, acute Surgical History Status post coronary artery bypass grafting (Chronic) Status post cataract extraction (Chronic) Family History Unknown Family history non-contributory Social History Preferred Language: Mongolian Communication Ability: Effective Beliefs That Will Affect Care: None Current Living Situation: Spouse Feels Safe at Home: Yes Safety Concerns: Feels Safe At This Time Smoking Status: Never smoker Hx Alcohol Use: Yes Alcohol type: beer Hx Substance Use: Yes substance use type: marijuana Review of Systems Review of Systems: All systems reviewed & are unremarkable except as noted in HPI & below Physical Exam Constitutional: well developed and + ill appearing; no acute distress Eyes: PERRL, conjunctivae normal, anicteric sclerae ENMT: external ear and nose normal, oropharynx normal Neck: trachea midline, no thyromegaly neck nontender Respiratory: + dullness to percussion (Left base); no respiratory distress Auscultation: + diminished lung sounds (Left base) and + rhonchi Cardiovascular: Rate/Rhythm: regular rate and regular rhythm Heart Sounds: normal S1 and normal S2; no gallop, no murmur and no cardiac rub Vessels: normal peripheral pulses; no JVD Gastrointestinal (Abdomen): Inspection/Auscultation: abdomen normal to inspection and normal bowel sounds Percussion/Palpation: + abdomen tender (Right upper quadrant); no hepatosplenomegaly and no abdominal mass Musculoskeletal: no cyanosis or clubbing, extremities motor strength 5/5 Spine: thoracic spine normal to inspection and lumbar spine normal to inspection; no cervical spinal tenderness Skin: no rashes, warm and dry normal turgor; no lesions Neurologic: patellar DTR's 2+ bilat, sensation intact no focal motor deficits Psychiatric: A+Ox3, euthymic affect Orientation: cooperative Lymphatic: no cervical or axillary lymphadenopathy no inguinal lymphadenopathy Results & Data Vital Signs (Past 12 Hours) Vital Signs Temp Pulse Pulse Resp BP Pulse Ox 04/16/19 07:19 36.5 C 101 H 22 90/55 L 98 04/16/19 04:00 36.9 C 99 H 19 130/47 L 98 04/15/19 23:19 36.5 C 107 H 22 93/44 L 98 Laboratory Results Short CBC 04/16/19 Range/Units 10:26 WBC 15.53 H (4.8-10.8) K/uL Hgb 9.6 L (14.0-18.0) g/dL Hct 29.7 L (42-52) % Plt Count 228 (130-400) K/uL BMP 04/16/19 05:37 Sodium 139 Potassium 4.2 Chloride 108 H Carbon Dioxide 26 BUN 61 H Creatinine 1.13 Glucose 61 L Calcium 7.9 L Diagnostic Findings Microbiology 04/12/19 13:57 Urine,Clean Catch Urine Culture - Final No growth - less than 1,000 colonies/mL. 04/08/19 08:28 Blood Aerobic Blood Culture - Final No growth in Aerobic bottle after 5 days. 04/08/19 08:28 Blood Anaerobic Blood Culture - Final No growth in Anaerobic bottle after 5 days. 04/08/19 08:38 Blood Aerobic Blood Culture - Final No growth in Aerobic bottle after 5 days. 04/08/19 08:38 Blood Anaerobic Blood Culture - Final No growth in Anaerobic bottle after 5 days. 04/06/19 13:30 Pleural Fluid Acid Fast Bacilli Smear - Final 04/06/19 13:30 Pleural Fluid Acid Fast Bacilli Culture - Preliminary No Acid-Fast Bacilli Isolated - Report 1, Additional Report to Follow. 04/07/19 08:33 Blood Aerobic Blood Culture - Final No growth in Aerobic bottle after 5 days. 04/07/19 08:33 Blood Anaerobic Blood Culture - Final No growth in Anaerobic bottle after 5 days. 04/07/19 08:44 Blood Aerobic Blood Culture - Final No growth in Aerobic bottle after 5 days. 04/07/19 08:44 Blood Anaerobic Blood Culture - Final No growth in Anaerobic bottle after 5 days. 04/05/19 20:47 Blood Aerobic Blood Culture - Final No growth in Aerobic bottle after 5 days. 04/05/19 20:47 Blood Anaerobic Blood Culture - Final Coag neg staph not lugdunensis 04/06/19 13:30 Pleural Fluid Gram Stain - Final 04/06/19 13:30 Pleural Fluid Aerobic and Anaerobic Culture - Final Escherichia coli ESBL 04/05/19 20:47 Blood Aerobic Blood Culture - Final No growth in Aerobic bottle after 5 days. 04/05/19 20:47 Blood Anaerobic Blood Culture - Final No growth in Anaerobic bottle after [address] chest wo con CLINICAL HISTORY: 74 years-old Male presenting with left empyema. TECHNIQUE: Multidetector CT imaging of the chest was performed without the use of intravenous contrast. IV contrast: None. One or more dose lowering techniques were used consistent with the principles of ALARA (as low as reasonably achievable), including automatic exposure control, mA or kV adjustment to individual patient size, and/or use of iterative reconstruction. COMPARISON: 04/07/2019. CT DOSE (mGy.cm): The estimated cumulative dose is 694.07. 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 Soft tissues: Normal thyroid and thoracic inlet. Gynecomastia. Numerous prominent mediastinal lymph nodes increased from prior. Calcified mediastinal lymph nodes are also noted. Evaluation of the liz limited in the absence of intravenous contrast. Atherosclerosis of the aorta. Postsurgical changes of median sternotomy and suspected coronary artery bypass grafting. Extensive aortic valve and coronary artery calcification. Mitral annular calcification. Multichamber enlargement of the heart. Significant interval worsening of bilateral pleural effusions, which are moderate in size, simple on the right and complex on the left. Extensive left pleural thickening is again noted. Small amount of abdominal ascites. Possible nodular contour of the liver suggest underlying fibrosis. Lungs and airways: No pneumothorax. Subsegmental airways in the left lower lobe are occluded. More central airways remain patent. Pulmonary arteries enlarged relative to adjacent bronchi in the left lung. Interlobular septal thickening evident to a significantly greater degree in the left lung. Extensive volume loss and consolidation consistent with atelectasis in the left lung primarily in the left lower lobe and lingula. Punctate calcification noted in the left lower lobe. Passive atelectasis also evident now in the right lower lobe. Mild diffuse added density of the lungs. Musculoskeletal: Degenerative changes of the spine. Chronic fracture of the posterior left 10th rib. IMPRESSION: 1. Significant interval increase in bilateral pleural effusions. 2. Complicated left pleural effusion with pleural thickening. Underlying empyema is not excluded. Correlate with thoracentesis. 3. Extensive atelectasis of the left lung. The presence of underlying punctate calcification could suggest chronic aspiration or fibrotic change among other etiologies. 4. Congestive changes in the left lung in the setting of cardiomegaly and volume overload. 5. Increased right basilar passive atelectasis in the setting of the effusion. 6. Worsened mediastinal lymphadenopathy. This is most likely reactive and could point to an underlying infection. This should be followed to resolution. Electronically signed by: Yoan Delgado M.D. 04/16/2019 9:09 AM Dictated: 04/16/19 09 Transcribed: 04/16/19 09
[2019-04-16 11:10] LABS: BUN Creatinine Ratio 51.4 (10-20); Calcium 8.1 mg/dl (8.5-10.1); Creatinine Clr Calc Pharmacy 71.7 ml/min; Est GFR (African American) 74.6; Est GFR (Non-African American) 64.4; Potassium 4.4 mmol/L (3.5-5.1)
--- NOTE | 2019-04-16 12:22 | Pharmacy Report ---
Pharmacy Glycemic Short Note 2 - Date of Service April 16, 2019 - Glycemic Short BSG Results (Last 24 hours): 04/15/19 04/15/19 04/15/19 16:03 16:04 20:28 Glucose POC Glucose 228 H 191 H 180 H 04/16/19 04/16/19 04/16/19 05:37 07:24 10:26 Glucose 61 L 90 POC Glucose 119 H OUTPATIENT ANTIDIABETIC REGIMEN: * glipizide 5mg QD * Lantus 75-100 units QD-per patient, dose varies based on BSG * HbA1c: 7.9% ASSESSMENT: 04/16: Fasting blood sugar 61mg/dl - will decrease PM Lantus dose to prevent hypoglycemia, otherwise blood sugars acceptable. 04/14: Fasting and post prandial BSGs much improved from yesterday. Will slightly loosen carb coverage and evening lantus scale to prevent overshooting. Patient received 125 units of insulin yesterday and 90 units the day before. Patient remains on a full liquid diet 04/12: BSGs in the 300s yesterday evening, likely due to basal deficiency. Will adjust AM lantus scale to help make up this deficiency. Today's FBS WNL. Will continue with HS lantus supplementation. PLAN FOR INPATIENT GLYCEMIC CONTROL: * Hold outpatient oral diabetes medications * Basal: * Lantus 30 units SQ QAM * decrease: SQ HS scale: 15 units for BSGs <200, > or equal to 200 give 20 units * Bolus insulin * NovoLog per scale ACHS * Correction factor 1:15 * Carb ratio: 1:5
[2019-04-16] MEDS ORDERED: LIDOCAINE HCL 1% 20 ML VIAL ONE (15:13)
--- NOTE | 2019-04-16 16:00 | Cardiology Progress Note ---
Date of Service April 16, 2019 Assessment & Plan (1) Acute on chronic HFrEF (heart failure with reduced ejection fraction): Patient with ischemic cardiOmyopathy, moderate left ventricular systolic dysfunction ejection fraction in the range of 30 to 35% on echocardiogram performed earlier this admission with a stable aortic valve prosthetic indices. Patient is to receive his fourth dose of albumin plus furosemide 40 mg. His urine output has been less vigorous today, but it is still a favorable improvement. We will plan on an additional 2 doses of furosemide 40 mg plus albumin to be administered at 9 AM and 5 PM on 04/17/2019, will then reassess ongoing diuretic regimen after that. (2) Empyema, left: Previous attempt at thoracentesis was unsuccessful. Patient felt to be at very high risk for surgical decortication, pleural catheter placement to be attempted today. (3) Atrial fibrillation: Patient with history of chronic atrial fibrillation. Rates are mildly elevated but stable in the range of 100 bpm which is where he has been for days. Aspirin plus Coumadin have been on hold for GI bleeding earlier this admission. Will resume aspirin 81 mg with caution tomorrow. Continue to hold Coumadin. Continue current dose of metoprolol. (4) S/P TAVR (transcatheter aortic valve replacement): History of TAVR complicated by prosthetic fracture and then underwent open surgical aortic valve replacement in 2017. Resume aspirin for stroke prophylaxis. Continue knee-high sequential pneumatic compression devices for DVT prophylaxis. Patient is also been found to have choledocholithiasis and laparoscopic cholecystectomy is to be reconsidered in the future after he recovers from his current illness. Subjective Chief complaint: Follow-up shortness of breath Subjective: Patient still fatigued. Overall stable compared to yesterday. Thoracic surgery is at the bedside, with plans to proceed with left Pleurx catheter placement under ultrasound guidance. Review of Systems Review of Systems: All systems reviewed & are unremarkable except as noted in HPI & below Physical Exam Physical Exam: Temp Pulse Resp BP Pulse Ox 36.8 C 105 H 18 82/59 L 98 04/16/19 11:25 04/16/19 11:25 04/16/19 11:25 04/16/19 11:25 04/16/19 11:25 Constitutional: no acute distress Chronically ill in appearance without acute distress Respiratory: Auscultation: + diminished lung sounds (Decreased breath sounds the left, worse in the right, no rales rhonchi or wheezing) Gastrointestinal (Abdomen): normal bowel sounds, soft, nontender, no hepatosplenomegaly Skin: no rashes, warm and dry Neurologic: PERRL, EOMI, accommodation nl, no face palsy, no dysarthria moves all extremities; no focal motor deficits Results & Data Vital Signs (Past 12 Hours) Vital Signs Temp Pulse Resp BP Pulse Ox 04/16/19 11:25 36.8 C 105 H 18 82/59 L 98 04/16/19 07: 36.5 C 101 H 22 90/55 L 98 04/16/19 04:00 36.9 C 99 H 19 130/47 L 98 Laboratory Results CBC 04/16/19 Range/Units 10:26 WBC 15.53 H (4.8-10.8) K/uL RBC 3.43 L (4.7-6.1) M/uL Hgb 9.6 L (14.0-18.0) g/dL Hct 29.7 L (42-52) % Plt Count 228 (130-400) K/uL Neut # (Auto) 14.18 H (1.4-6.5) K/uL Lymph # (Auto) 0.33 L (1.2-3.4) K/uL Dewitt # (Auto) 0.86 H (0.11-0.59) K/uL Eos # (Auto) 0.06 (0-0.5) K/uL Baso # (Auto) 0.02 (0-0.2) K/uL Comprehensive Metabolic Panel 04/16/19 04/16/19 Range/Units 05:37 10:26 Sodium 139 139 (136-145) mmol/L Potassium 4.2 4.4 (3.5-5.1) mmol/L Chloride 108 H 108 H (98-107) mmol/L Carbon Dioxide 26 26 (21-32) mmol/L BUN 61 H 58 H (7-18) mg/dl Creatinine 1.13 1.12 (0.6-1.4) mg/dl Glucose 61 L 90 (70-99) mg/dl Calcium 7.9 L 8.1 L (8.5-10.1) mg/dl Intake and Output 04/16/19 04/16/19 04/16/19 06:59 14:59 22:59 Intake Total 824 / 824 Output Total / 2099 1100 / 1100 Balance -500 / -732 -276 / -276 Intake: IV 114 / 114 INVanz 1,000 MG In Nss 50 ml @ 60 / 60 100 mls/hr IV Q24H [facility] Rx#: [id number] Albumin 25% 50 ml @ 54 mls/hr 54 / 54 IV BID17 [facility] with Lasix 40 mg Rx#:[id number] Oral 710 / 710 Output: Urine Amount (Catheter) 2099 / 1100 Chandler/Indwelling 2099 / 1099 Other: Other Intake Source sips Weight 109.5 kg Medications Administered Current Inpatient Medications Acetaminophen (Tylenol) 500 mg PO Q4 PRN PRN Reason: Fever Or Pain Stop: 05/05/19 23:15 Last Admin: 04/16/19 01:46 Dose: 500 mg Documented by: Aspirin (Ecotrin Ectab) 81 mg PO QAM [facility] Stop: 05/17/19 08:59 Atorvastatin Calcium (Lipitor) 40 mg PO HS [facility] Stop: 05/06/19 20:59 Last Admin: 04/15/19 20:36 Dose: 40 mg Documented by: Buspirone HCl (Buspar) 2.5 mg PO TID PRN PRN Reason: Anxiety Stop: 05/06/19 01:42 Last Admin: 04/10/19 01:07 Dose: 2.5 mg Documented by: Dextrose (Dextrose 50%) 25 - 50 ml IV UD PRN; Protocol PRN Reason: Hypoglycemia Protocol Stop: 05/05/19 23:15 Last Admin: 04/08/19 23:57 Dose: 50 ml Documented by: Docusate Sodium (Colace) 100 mg PO BID PRN PRN Reason: Constipation Stop: 05/05/19 23:15 Last Admin: 04/06/19 08:30 Dose: 100 mg Documented by: Gabapentin (Neurontin) 100 mg PO TID [facility] Stop: 05/06/19 08:59 Last Admin: 04/16/19 09:03 Dose: 100 mg Documented by: Glucagon (Glucagen) 1 mg SQ UD PRN; Protocol PRN Reason: Hypoglycemia Protocol Stop: 05/05/19 23:15 Glucose (Glucose 40%) 15 - 30 gm PO UD PRN; Protocol PRN Reason: Hypoglycemia Protocol Stop: 05/05/19 23:15 Glucose (Dex4 Glucose) 4 - 8 tabs PO UD PRN; Protocol PRN Reason: Hypoglycemia Protocol Stop: 05/05/19 23:15 Ertapenem 1,000 mg/ Sodium (Chloride) 60 mls @ 100 mls/hr IV Q24H [facility] Stop: 04/18/19 10:59 Last Infusion: 04/16/19 11:08 Dose: Infused Documented by: Sodium Chloride (Nss) 250 mls @ 15 mls/hr IV .[id number] PRN PRN Reason: For Transfusion Stop: 05/11/19 10:18 Furosemide 40 mg/ Albumin (Human) 54 mls @ 54 mls/hr IV BID17 [facility] Stop: 04/16/19 17:59 Last Infusion: 04/16/19 10:04 Dose: Infused Documented by: Furosemide 40 mg/ Albumin (Human) 54 mls @ 54 mls/hr IV BID@0900,1700 [facility] Stop: 04/17/19 17:59 Insulin Aspart (Novolog Flexpen) 0 units SC ACHS [facility] Stop: 05/10/19 11:29 Last Admin: 04/16/19 11:40 Dose: Not Given Documented by: Insulin Glargine (Lantus Solostar Pen) 0 units SC HS [facility]; Protocol Stop: 05/11/19 20:59 Last Admin: 04/15/19 20:38 Dose: 20 units Documented by: Insulin Glargine (Lantus Solostar Pen) 0 units SC QAM [facility]; Protocol Stop: 05/10/19 08:14 Last Admin: 04/16/19 09:03 Dose: 30 units Documented by: Magnesium Oxide (Mag-Ox) 400 mg PO QAM [facility] Stop: 05/06/19 08:59 Last Admin: 04/16/19 09:05 Dose: 400 mg Documented by: Metoprolol Tartrate (Lopressor) 25 mg PO BID [facility] Stop: 05/09/19 08:59 Last Admin: 04/16/19 10:32 Dose: Not Given Documented by: Miscellaneous (Carbohydrates For Hypoglycemia) 15 - 30 gm PO UD PRN PRN Reason: Hypoglycemia Treatment Stop: 05/05/19 23:15 Miscellaneous Information (Consult Glycemic Management Pharmacy) 1 ea N/A UD PRN; Protocol PRN Reason: Consult Stop: 05/05/19 23:47 Pantoprazole Sodium (Protonix) 40 mg PO QAM [facility] Stop: 05/10/19 08:59 Last Admin: 04/16/19 09:05 Dose: 40 mg Documented by: Polyethylene Glycol (Miralax Powder Packet) 17 gm PO DAILY PRN PRN Reason: Constipation Stop: 05/05/19 23:15 Sennosides (Senokot) 8.6 mg PO DAILY PRN PRN Reason: Constipation Stop: 05/05/19 23:15 Last Admin: 04/06/19 08:30 Dose: 8.6 mg Documented by: Zolpidem Tartrate (Ambien) 5 mg PO HS PRN PRN Reason: Sleep Stop: 05/10/19 18:35 Last Admin: 04/14/19 20:43 Dose: 5 mg Documented by:
[2019-04-16] MEDS ORDERED: DORNASE ALFA 5 ML in SYRINGE 25 ML IPL SCH ×2 (17:00→18:00)
[2019-04-16] MEDS ORDERED: ALTEPLASE, RECOMBINANT 10 MG in SYRINGE 50 ML IPL SCH ×2 (17:00→18:00)
--- NOTE | 2019-04-16 17:06 | XRay Report ---
XR chest 1V portable CLINICAL HISTORY: Pleural effusion. Chest x-ray status post thoracentesis. COMPARISON STUDY: Chest CT dated 04/16/2019, chest x-ray dated 04/14/2019 FINDINGS: The heart is enlarged. There are postsurgical changes of a midline sternotomy. There is rad iographic evidence of congestive failure/fluid overload. There is a left basilar Pleurx catheter. The re is left-sided pleural thickening. There is a small loculated left basilar pneumothorax. The maximu m pleural separation is 8 mm. There is left lower lobe atelectasis/consolidation[ IMPRESSION: 1. Small loculated left basilar pneumothorax with pleural separation of 8 mm 2. Interval insertion of a left-sided Pleurx catheter 3. Left-sided pleural thickening 4. Subpulmonic right pleural effusion 5. Radiographic evidence of congestive failure/fluid overload 6. Left lower lobe atelectasis/consolidation Electronically signed by: Travon Sim M.D. 04/16/2019 5:05 PM
[2019-04-16] MEDS: ALTEPLASE, RECOMBINANT 10 MG in SYRINGE 50 ML IPL SCH (17:44)
[2019-04-16 18:00] LABS: Mononuclear WBC Pleural 0.2 %; Polynuclear WBC Pleural 99.8 %; RBC Pleural Fluid (A) 59000 /uL; Source Pleural Fluid LEFT LUNG; WBC Pleural Fluid (A) 42540 /uL
--- NOTE | 2019-04-16 18:03 | Hospitalist Progress Note ---
Date of Service April 16, 2019 Assessment & Plan (1) Septic shock: Secondary to empyema and cholangitis management noted below Blood pressure stable (2) Pneumonia: Left-sided empyema Chronic respiratory failure with 2 L nasal cannula. Thoracic surgeon on board Chest x-ray: Persistent right-sided pleural effusion Repeat CT chest: Noted Remains afebrile, white count 16,000 Plan for repeat thoracentesis today Continue ertapenem IV ID consulted for antibiotic management (3) Cholecystitis: Chronic cholecystitis, cholangitis, choledocholithiasis Status post ERCP with stone removal and stent placement General surgery on board, plan for eventual cholecystectomy versus cholecystostomy tube placement when patient is medically stable Continue ertapenem IV (4) GI bleeding: Hemoglobin stable after blood transfusion and discontinuation of anticoagulation Hemoglobin stable, 9.8 Anticoagulation on hold at this time (5) Ischemic cardiomyopathy: Declines defibrillator placement Presently, volume overloaded Lasix IV plus albumin started ,diuretics being titrated by cardiology service (6) S/P TAVR (transcatheter aortic valve replacement): No chest pain, shortness of breath (7) Diabetes mellitus, type II: On Lantus and insulin sliding scale Blood glucose levels within acceptable range (8) Atrial fibrillation: Continue metoprolol Anticoagulation on hold secondary to GI bleeding (9) Coronary artery disease: Medical management with aspirin, Lipitor. Losartan on hold in setting of MARISA. (10) Acute kidney injury: Likely secondary to septic shock. Continue IV fluids, avoid nephrotoxic substances. Hold losartan. Kidney function remains stable (11) DVT (deep venous thrombosis): Anticoagulation is on hold due to GI bleed which required 2 unit of blood transfusion Full code Disposition Pending Subjective Follow-up for ischemic cardiomyopathy, edema, cholangitis, cholecystitis Seen sitting up in bed, not in distress States he feels fine overall today Denies shortness of breath or coughing Denies shortness of breath Review of Systems Review of Systems: All systems reviewed & are unremarkable except as noted in HPI & below Physical Exam Physical Exam: General- oriented x 3, not in distress, speaks in sentences with no effort or accessory muscle use Eyes- anicteric Neck- no JVD Lungs-decreased breath sounds in the left side, decreased breath sounds right base, no crackles or wheezing Heart- normal rate, regular rhythm; no murmurs Abdomen- normal bowel sounds, nondistended, soft, nontender Extremities- no pretibial edema, no calf tenderness Neuro- alert, oriented x 3; no gross focal neurologic deficits Skin- warm & dry Results & Data Vital Signs (Past 12 Hours) Vital Signs Temp Pulse Resp BP Pulse Ox 04/16/19 11:25 36.8 C 105 H 18 82/59 L 98 04/16/19 07:19 36.5 C 101 H 22 90/55 L 98
[2019-04-16] MEDS: DORNASE ALFA 5 ML in SYRINGE 25 ML IPL SCH (19:00)
[2019-04-16 19:15] LABS: Amylase Pleural Fluid 25 U/L; Total Protein Pleural Fluid 3.3 g/dl
[2019-04-16] MEDS ORDERED: SODIUM CHLORIDE 0.65% NA SOLN 45 ML (OCEAN) ONE (19:43)
[2019-04-16] MEDS: ATORVASTATIN 40 MG TAB PO SCH (20:11)
[2019-04-16] MEDS ORDERED: OXYCODONE HCL IR 5 MG TAB (IMMEDIATE RELEASE) ONE (20:13)
[2019-04-16] MEDS: DOCUSATE SODIUM 100 MG CAP PO PRN (20:14)
--- NOTE | 2019-04-17 00:33 | Operative Report ---
DATE OF OPERATION: 04/16/2019 PREOPERATIVE DIAGNOSIS: Left empyema. POSTOPERATIVE DIAGNOSIS: Left empyema. PROCEDURE: Insertion of left PleurX catheter. SURGEON: Jacques Paula MD. CARDBOARD INSERTER: JED Arana ANESTHESIA: Local. SPECIFICS OF PROCEDURE AND FINDINGS: Domenico Bustillo 74-year-old who has been in the hospital for 11 days as he was tapped and found to have an empyema; however, he is too ill for us to take to the operating room. His white count has been hovering at 16,000. He has been afebrile. He also had a GI bleed and had ascending cholangitis. There are multiple reasons for him to be ill; however, he has not responded as I hoped. For this reason, I put a PleurX catheter in today. Drain 600 mL of turbid fluid with a pH of 6.7. We are going to institute a MIST-2 protocol. I explained to the patient and his that this could cause some bleeding or other issues, but I thought that at this point would hope to get him good enough so we can him to the operating room. We may end up having to do something, if this does not work. He may need an Eloesser flap under local, we will see. I attest to the content of the Intraoperative Record and any orders documented therein. Any exception s are noted below.
[2019-04-17] MEDS: OXYCODONE HCL IR 5 MG TAB (IMMEDIATE RELEASE) PO PRN ×2 (05:26→19:39)
[2019-04-17] MEDS: ALTEPLASE, RECOMBINANT 10 MG in SYRINGE 50 ML IPL SCH ×2 (06:25→19:35)
[2019-04-17 06:36] LABS: BUN Creatinine Ratio 48.7 (10-20); Calcium 8.1 mg/dl (8.5-10.1); Creatinine Clr Calc Pharmacy 68.7 ml/min; Est GFR (African American) 71.5; Est GFR (Non-African American) 61.7; Potassium 4.6 mmol/L (3.5-5.1)
--- NOTE | 2019-04-17 07:44 | XRay Report ---
XR chest 1V portable CLINICAL HISTORY: empyema COMPARISON STUDY: Chest CT and chest radiograph April 16, 2019. FINDINGS: Cardiomegaly is noted. There is pulmonary vascular congestion with suspected mild pulmonary edema. Left pleural catheter is in place. A small left pleural effusion is noted. Pleural gas has de creased. A small right pleural effusion with right basilar opacity is noted. There is persistent left basilar opacity. IMPRESSION: 1. Left pleural catheter in place. Small left pleural effusion with interval decrease in pleural gas. 2. Persistent bibasilar opacities and a small right pleural effusion. 3. Pulmonary vascular congestion. Electronically signed by: Walter Luciano M.D. 04/17/2019 7:43 AM
[2019-04-17] MEDS: DORNASE ALFA 5 ML in SYRINGE 25 ML IPL SCH ×2 (07:59→20:48)
[2019-04-17] MEDS: ASPIRIN 81 MG ECTAB PO SCH (10:33)
[2019-04-17] MEDS: PANTOprazole 40 MG TAB PO SCH (10:33)
[2019-04-17] MEDS: ALBUMIN 25% 50 ML with FUROSEMIDE 40 MG IV SCH ×2 (10:33→18:45)
[2019-04-17] MEDS: METOPROLOL TARTRATE 25 MG TAB PO SCH ×2 (10:33→20:38)
[2019-04-17] MEDS: GABAPENTIN 100 MG CAP PO SCH ×3 (10:33→20:39)
[2019-04-17] MEDS: INSULIN GLARGINE SOLOSTAR 100 UNITS/ML 3 ML PEN SC SCH ×2 (10:34→20:37)
[2019-04-17] MEDS: MAGNESIUM OXIDE 400 MG TAB PO SCH (10:34)
[2019-04-17] MEDS: INSULIN ASPART 100 UNITS/ML 3 ML PEN SC SCH ×4 (10:36→20:41)
--- NOTE | 2019-04-17 11:49 | Cardiology Progress Note ---
Date of Service April 17, 2019 Assessment & Plan (1) Acute on chronic HFrEF (heart failure with reduced ejection fraction): Known ischemic cardiomyopathy, moderate left ventricular systolic dysfunction. EF 30 to 35%. Stable aortic valve prosthetic indices. Volume status appears normovolemic to mildly hypervolemic Would continue IV furosemide with albumin today then transition to oral tomorrow His outpatient diuretic regimen was previously torsemide 40 mg in the AM and 20 mg in the PM along with 25 mg of spironolactone. (2) Atrial fibrillation: Chronic atrial fibrillation. Rates acceptable given the current issues Continue metoprolol as prescribed. Coumadin remains on hold given the GI bleeding earlier this admission. (3) Coronary artery disease: Stable Continue medical management Supervising Physician Co-Signing Physician Notes Patient seen and examined at the bedside. Admits to feeling fatigued and " washed out". Denies chest pain or unusual shortness of breath. Edema improving. Negative fluid balance with intravenous albumin plus Lasix. Pleurx catheter placed by Dr. Burr 04/16/2019 without complication. Moderate drainage noted. Telemetry demonstrates chronic atrial fibrillation with borderline rate control. PE: VSS, Gen: Chronically ill. NAD, awake alert going x3. Heart: Irregular rhythm, borderline tachycardic, normal S1 and S2. No murmur. Lungs: Diminished breath sounds with crackles at the left base. No rhonchi or wheeze. Abdomen: Soft nontender, normal bowel sounds. Extremities: Mild, 1+ bilateral edema. A/P: Agree with above PA-C history, physical exam, assessment and plan. Plan for transition to oral diuretic therapy in a.m. Pleurx catheter management as for thoracic surgery. I will continue to follow closely during hospitalization. Edgardo Villarreal DO, [facility] Subjective Patient seen and examination. Chart, medications, and telemetry reviewed. Feels weak and washed out. Left sided chest pain (post catheter placement). Difficulty getting a deep breath. No angina. No palpitations. No hemoptysis. No syncope. Telemetry: (Chronic) atrial fibrillation with around 100 bpm. Occasional PVC. Seven beat run of wide complex tachycardia at 1901 yesterday evening asymptomatic Physical Exam Physical Exam: General: Chronically ill appearing. No acute distress Skin: Rash on the right posterolateral neck Lung: Diminished at the left base. Clear on the right. Heart: Irregularly irregular around 100 bpm. No murmur appreciated. Abdomen: +BS Chandler catheter draining somewhat concentrated urine Extremities: Minimal edema Neuro: No focal motor deficits Results & Data Vital Signs (Past 12 Hours) Vital Signs Temp Pulse Pulse Resp BP Pulse Ox 04/17/19 11:24 36.9 C 111 H 16 100/58 L 98 04/17/19 07:11 36.9 C 108 H 18 126/58 L 98 04/17/19 04:57 36.6 C 105 H 20 116/52 L 100 04/16/19 23:53 101 H Laboratory Results - last 24 hr 04/16/19 04/16/19 04/16/19 11:44 20:19 Unknown Sodium Potassium Chloride Carbon Dioxide Anion Gap BUN Creatinine Est Cr Clr Drug Dosing Est GFR ( Amer) Est GFR (Non-Af Amer) BUN/Creatinine Ratio Glucose POC Glucose 95 171 H Calcium Pleural Fluid Source LEFT LUNG Pleural Color BROWN Pleural Appearance CLOUDY Pleural WBC 61515 Pleural RBC 94160 Pleural Polynuclear % 99.8 Pleural Mononuclear % 0.2 Pleural Total Protein 3.3 Pleural LDH Pleural Glucose < 1 Pleural Amylase 25 Pleural Cholesterol 04/16/19 04/17/19 04/17/19 Unknown 05:39 07:15 Sodium 141 Potassium 4.6 Chloride 109 H Carbon Dioxide 26 Anion Gap 6.0 BUN 57 H Creatinine 1.16 Est Cr Clr Drug Dosing 68.7 Est GFR ( Amer) 71.5 Est GFR (Non-Af Amer) 61.7 BUN/Creatinine Ratio 48.7 H Glucose 108 H POC Glucose 129 H Calcium 8.1 L Pleural Fluid Source Pleural Color Pleural Appearance Pleural WBC Pleural RBC Pleural Polynuclear % Pleural Mononuclear % Pleural Total Protein Pleural LDH Pleural Glucose Pleural Amylase Pleural Cholesterol Pending 04/17/19 11:12 Sodium Potassium Chloride Carbon Dioxide Anion Gap BUN Creatinine Est Cr Clr Drug Dosing Est GFR ( Amer) Est GFR (Non-Af Amer) BUN/Creatinine Ratio Glucose POC Glucose 167 H Calcium Pleural Fluid Source Pleural Color Pleural Appearance Pleural WBC Pleural RBC Pleural Polynuclear % Pleural Mononuclear % Pleural Total Protein Pleural LDH Pleural Glucose Pleural Amylase Pleural Cholesterol
[2019-04-17] MEDS: ERTAPENEM SODIUM 1,000 MG in SODIUM CHLORIDE 0.9% 50 ML IV SCH (13:05)
--- NOTE | 2019-04-17 15:15 | Progress Note ---
DATE: 04/17/2019 Mr. Bustillo was seen today 1 day status post insertion of PleurX catheter, institution of the MIST-2 protocol. He is responding. His x-ray looks better and quite frankly, I think he looks better. He still looks quite poor, but he states that he is subjectively improved over yesterday. Continued to drain quite a bit of fluid from the chest tube. His white count remains elevated, but is trending in the right direction. He still has an apparent failure on his x-ray; however, it is unclear to me whether his intravascular volume reflects overload or not. At any rate, he feels better and continued using the MIST protocol for the next 48 hours and then reassess him with a CT scan. It should be noted that this is a beta lactamase inhibiting E. coli which is concerning as a resistant organism.
--- NOTE | 2019-04-17 16:26 | Infectious Disease Progress Nt ---
Date of Service April 17, 2019 Assessment & Plan (1) Empyema, left: 74-year-old male with chronic cholecystitis, cholangitis, choledocholithiasis, and now empyema of the left chest with ESBL producing E. coli. Now status post Pleurx catheter placement, patient slightly improved today. Would continue on current antibiotics. Would consider repeat imaging of the upper quadrant to assess status of cholecystitis. Will follow. (2) Cholecystitis, chronic: (3) Infection due to ESBL-producing Escherichia coli: Subjective Patient seen in follow-up for sepsis, empyema, and cholecystitis/cholangitis. Status post Pleurx catheter placement. Feeling slightly better and less short of breath. Remains afebrile. Pleural fluid cultures are pending. Review of Systems Review of Systems: All systems reviewed & are unremarkable except as noted in HPI & below Physical Exam Constitutional: WD/WN, vitals as above comfortable; no acute distress Eyes: PERRL, conjunctivae normal, anicteric sclerae ENMT: external ear and nose normal, oropharynx normal Neck: trachea midline, no thyromegaly neck nontender Respiratory: normal percussion; no respiratory distress Auscultation: + diminished lung sounds (Left base) Left-sided Pleurx catheter in place Cardiovascular: Rate/Rhythm: regular rate and regular rhythm Heart Sounds: normal S1 and normal S2; no gallop, no murmur and no cardiac rub Gastrointestinal (Abdomen): normal bowel sounds, soft, nontender, no hepatosplenomegaly Musculoskeletal: no cyanosis or clubbing, extremities motor strength 5/5 No spinal tenderness, no joint swelling or erythema Skin: no rashes, warm and dry no lesions Neurologic: moves all extremities and awake; no focal motor deficits Motor/Sensory: no sensory deficit Psychiatric: A+Ox3, euthymic affect Lymphatic: no cervical or axillary lymphadenopathy no inguinal lymphadenopathy Results & Data Vital Signs (Past 12 Hours) Vital Signs Temp Pulse Resp BP Pulse Ox 04/17/19 16:00 36.7 C 95 H 19 96/44 L 95 04/17/19 11:24 36.9 C 111 H 16 100/58 L 98 04/17/19 07:11 36.9 C 108 H 18 126/58 L 98 04/17/19 04:57 36.6 C 105 H 20 116/52 L 100
--- NOTE | 2019-04-17 17:45 | Hospitalist Progress Note ---
Date of Service April 17, 2019 Assessment & Plan (1) Septic shock: Secondary to empyema and cholangitis management noted below Blood pressure stable (2) Pneumonia: Left-sided empyema Chronic respiratory failure with 2 L nasal cannula. Thoracic surgeon on board Chest x-ray: Persistent right-sided pleural effusion Repeat CT chest: Noted Status post left heart catheter insertion April 16, 2019 Draining 600 cc so far Repeat pleural fluid culture: Gram-negative bacilli Continue ertapenem IV (3) Cholecystitis: Chronic cholecystitis, cholangitis, choledocholithiasis Status post ERCP with stone removal and stent placement General surgery on board, plan for eventual cholecystectomy versus cholecystostomy tube placement when patient is medically stable Continue ertapenem IV ID consulted CT abdomen pelvis to follow-up cholangitis/cholecystitis ordered (4) GI bleeding: Hemoglobin stable after blood transfusion and discontinuation of anticoagulation Hemoglobin stable, 9.8 Anticoagulation on hold at this time (5) Ischemic cardiomyopathy: Declines defibrillator placement Presently, volume overloaded Continue Lasix IV plus albumin ,diuretics being titrated by cardiology service (6) S/P TAVR (transcatheter aortic valve replacement): No chest pain, shortness of breath (7) Diabetes mellitus, type II: On Lantus and insulin sliding scale Blood glucose levels within acceptable range (8) Atrial fibrillation: Continue metoprolol Anticoagulation on hold secondary to GI bleeding (9) Coronary artery disease: Medical management with aspirin, Lipitor. Losartan on hold in setting of MARISA. (10) Acute kidney injury: Likely secondary to septic shock. Continue IV fluids, avoid nephrotoxic substances. Hold losartan. Kidney function remains stable (11) DVT (deep venous thrombosis): Anticoagulation is on hold due to GI bleed which required 2 unit of blood transfusion Full code Disposition Pending Subjective Follow-up for ischemic cardiomyopathy, empyema, cholecystitis/cholangitis Status post Pleurx catheter insertion yesterday, left side Seen sitting up in bed, comfortable in distress States he feels improved today compared to yesterday Breathing is improving, has occasional cough Denies chest pain, palpations, dizziness, nausea Denies abdominal pain No other symptoms Review of Systems Review of Systems: All systems reviewed & are unremarkable except as noted in HPI & below Physical Exam Physical Exam: General- oriented x 2, not in distress, speaks in sentences with no effort or accessory muscle use Eyes- anicteric Neck- no JVD Lungs-decreased breath sounds bilateral bases, improved compared to yesterday, no wheezing no crackles Positive Pleurx catheter on the left side posterior lateral region Heart- normal rate, regular rhythm; no murmurs Abdomen- normal bowel sounds, nondistended, soft, nontender Extremities-grade 1 lower leg edema, no calf tenderness Neuro- alert, oriented x2; no gross focal neurologic deficits Skin- warm & dry Results & Data Vital Signs (Past 12 Hours) Vital Signs Temp Pulse Resp BP Pulse Ox 04/17/19 16:00 36.7 C 95 H 19 96/44 L 95 04/17/19 11:24 36.9 C 111 H 16 100/58 L 98 04/17/19 07:11 36.9 C 108 H 18 126/58 L 98 Laboratory Results Laboratory Results - last 24 hr 04/16/19 04/16/19 04/17/19 20:19 Unknown 05:39 Sodium 141 Potassium 4.6 Chloride 109 H Carbon Dioxide 26 Anion Gap 6.0 BUN 57 H Creatinine 1.16 Est Cr Clr Drug Dosing 68.7 Est GFR ( Amer) 71.5 Est GFR (Non-Af Amer) 61.7 BUN/Creatinine Ratio 48.7 H Glucose 108 H POC Glucose 171 H Calcium 8.1 L Pleural Fluid Source LEFT LUNG Pleural Color BROWN Pleural Appearance CLOUDY Pleural WBC 78772 Pleural RBC 78884 Pleural Polynuclear % 99.8 Pleural Mononuclear % 0.2 Pleural Total Protein 3.3 Pleural LDH Pleural Glucose < 1 Pleural Amylase 25 04/17/19 04/17/19 04/17/19 07:15 11:12 16:29 Sodium Potassium Chloride Carbon Dioxide Anion Gap BUN Creatinine Est Cr Clr Drug Dosing Est GFR ( Amer) Est GFR (Non-Af Amer) BUN/Creatinine Ratio Glucose POC Glucose 129 H 167 H 137 H Calcium Pleural Fluid Source Pleural Color Pleural Appearance Pleural WBC Pleural RBC Pleural Polynuclear % Pleural Mononuclear % Pleural Total Protein Pleural LDH Pleural Glucose Pleural Amylase
[2019-04-17] MEDS: ZOLPIDEM TARTRATE 5 MG TAB PO PRN (19:40)
[2019-04-17] MEDS: ATORVASTATIN 40 MG TAB PO SCH (21:41)
[2019-04-18 06:31] LABS: Hematocrit (blood only) 29.2 % (42-52); Hemoglobin 9.2 g/dL (14.0-18.0); Mean Corpuscular Hgb Conc 31.5 g/dL (32-36); Mean Corpuscular Volume 88.2 fL (80-100); Mean Platelet Volume 10.2 fL (7.4-10.4); Platelet Count 246 K/uL (130-400); RDW Standard Deviation 60.9 fL (36.4-46.3); Red Blood Count 3.31 M/uL (4.7-6.1); White Blood Count 13.17 K/uL (4.8-10.8)
--- NOTE | 2019-04-18 07:16 | XRay Report ---
XR chest 1V portable CLINICAL HISTORY: empyema COMPARISON STUDY: 04/17/2019 FINDINGS: The cardiac and mediastinal contours remain stable. There are postsurgical changes of a mid line sternotomy. The left-sided chest tube remains unchanged in position. There is stable left-sided pleural thickening/fluid. There is a suspected subpulmonic right pleural effusion. There is left lowe r lobe atelectasis/consolidation. There are subtle right basilar airspace opacities. An element of mi ld pulmonary vascular congestion/fluid overload is suspected.[ IMPRESSION: 1. No change in the position left-sided chest tube 2. Suspected mild pulmonary vascular congestion/fluid overload 3. Persistent left pleural thickening/fluid with associated left basilar atelectasis/consolidation 4. No pneumothorax identified Electronically signed by: Travon Sim M.D. 04/18/2019 7:14 AM
[2019-04-18] MEDS ORDERED: MoRPHine SULFATE 2 MG/ML CARP ONE (09:01)
[2019-04-18] MEDS: PANTOprazole 40 MG TAB PO SCH (09:17)
[2019-04-18] MEDS: MAGNESIUM OXIDE 400 MG TAB PO SCH (09:17)
[2019-04-18] MEDS: METOPROLOL TARTRATE 25 MG TAB PO SCH ×2 (09:18→21:28)
[2019-04-18] MEDS: ASPIRIN 81 MG ECTAB PO SCH (09:18)
[2019-04-18] MEDS: INSULIN GLARGINE SOLOSTAR 100 UNITS/ML 3 ML PEN SC SCH ×2 (09:19→21:33)
[2019-04-18] MEDS: INSULIN ASPART 100 UNITS/ML 3 ML PEN SC SCH ×4 (09:22→21:30)
[2019-04-18] MEDS: GABAPENTIN 100 MG CAP PO SCH ×3 (09:25→21:28)
[2019-04-18] MEDS ORDERED: MoRPHine SULFATE 2 MG/ML CARP IV STA (09:34)
[2019-04-18] MEDS: ALTEPLASE, RECOMBINANT 10 MG in SYRINGE 50 ML IPL SCH ×2 (09:54→22:48)
--- NOTE | 2019-04-18 09:55 | Pharmacy Report ---
Pharmacy Glycemic Short Note 2 - Date of Service April 18, 2019 - Glycemic Short BSG Results (Last 24 hours): 04/17/19 04/17/19 04/17/19 11:12 16:29 20:24 POC Glucose 167 H 137 H 220 H 04/18/19 08:45 POC Glucose 201 H OUTPATIENT ANTIDIABETIC REGIMEN: * glipizide 5mg QD * Lantus 75-100 units QD-per patient, dose varies based on BSG * HbA1c: 7.9% ASSESSMENT: 04/18: Fasting blood sugar of 201mg/dl, despite 5 units of correctional insulin last night and 15 units of Lantus, will increase PM dose of Lantus, mindful that pat did have hypoglycemia on 04/16 AM with this dose, will place on scale. Other blood sugars at goal. 04/16: Fasting blood sugar 61mg/dl - will decrease PM Lantus dose to prevent hypoglycemia, otherwise blood sugars acceptable. 04/14: Fasting and post prandial BSGs much improved from yesterday. Will slightly loosen carb coverage and evening lantus scale to prevent overshooting. Patient received 125 units of insulin yesterday and 90 units the day before. Patient remains on a full liquid diet 04/12: BSGs in the 300s yesterday evening, likely due to basal deficiency. Will adjust AM lantus scale to help make up this deficiency. Today's FBS WNL. Will continue with HS lantus supplementation. PLAN FOR INPATIENT GLYCEMIC CONTROL: * Hold outpatient oral diabetes medications * Basal: * Lantus 30 units SQ QAM * increase: SQ HS scale: 20 units for BSGs <200, > or equal to 200 give 25 units * Bolus insulin * NovoLog per scale ACHS * Correction factor 1:15 * Carb ratio: 1:5
--- NOTE | 2019-04-18 10:35 | Progress Note ---
DATE: 04/18/2019 Mr. Bustillo was seen today. His white count is down to 13,000. He refused that his PleurX catheter drained last night. He had a bit more fluid on his x-ray today; however, I have been talked to him and he was drained for about 300 mL of serous fluid. I saw him twice this morning. His lungs sound a bit better. The site is clean. He looks a bit better to me. Hopefully, this MIST protocol will help. I discussed this case also with Dr. Duff. Dr. Duff will be monitoring him; however, there is no plan to do a cholecystectomy at any time soon. This patient is very ill, not recovered from this.
[2019-04-18] MEDS: DORNASE ALFA 5 ML in SYRINGE 25 ML IPL SCH ×2 (11:19→23:46)
--- NOTE | 2019-04-18 11:55 | Cardiology Progress Note ---
Date of Service April 18, 2019 Assessment & Plan (1) Acute on chronic HFrEF (heart failure with reduced ejection fraction): Known ischemic cardiomyopathy, moderate left ventricular systolic dysfunction. EF 30 to 35%. Stable aortic valve prosthetic indices. Restart outpatient diuretic regimen: Torsemide 40 mg in the AM and 20 mg in the PM along with 25 mg of spironolactone. (2) Atrial fibrillation: Chronic atrial fibrillation. Rates acceptable given the current issues Continue metoprolol as prescribed. Coumadin remains on hold given the GI bleeding earlier this admission. We will discuss timing of restarting anticoagulation with gastroenterology. (3) Coronary artery disease: Stable Continue medical management Subjective Patient seen and examined at the bedside. Feeling fatigued. Edema unchanged. Denies orthopnea or PND. 30 cc output noted via Pleurx catheter today. Offers no new concerns/complaints at this time. Telemetry demonstrates atrial fibrillation with average heart rate 90 to 100 bpm. Isolated 7 beat geronimo of nonsustained ventricular tachycardia recorded. Review of Systems Review of Systems: All systems reviewed & are unremarkable except as noted in HPI & below Physical Exam Physical Exam: PE: VSS, Gen: Chronically ill. NAD, awake alert going x3. Heart: Irregular rhythm, borderline tachycardic, normal S1 and S2. No murmur. Lungs: + Left-sided Pleurx catheter. Diminished breath sounds with crackles at the left base. No rhonchi or wheeze. Abdomen: Soft nontender, normal bowel sounds. Extremities: Mild, 1+ bilateral edema. Neuro: No focal motor deficit. Results & Data Vital Signs (Past 12 Hours) Vital Signs Temp Pulse Pulse Resp BP BP Pulse Ox 04/18/19 07:54 36.8 C 86 20 119/68 96 04/18/19 05:00 36.4 C L 101 H 17 103/63 100
[2019-04-18] MEDS: SPIRONOLACTONE 25 MG TAB PO SCH (13:44)
[2019-04-18] MEDS: TORSEMIDE 10 MG TAB PO SCH ×2 (13:44→21:27)
[2019-04-18] MEDS: OXYCODONE HCL IR 5 MG TAB (IMMEDIATE RELEASE) PO PRN ×2 (13:46→21:32)
[2019-04-18] MEDS: ERTAPENEM SODIUM 1,000 MG in SODIUM CHLORIDE 0.9% 50 ML IV SCH (17:47)
--- NOTE | 2019-04-18 17:47 | Hospitalist Progress Note ---
Date of Service April 18, 2019 Assessment & Plan (1) Septic shock: Secondary to empyema and cholangitis management noted below Blood pressure stable (2) Pneumonia: Left-sided empyema Chronic respiratory failure with 2 L nasal cannula. Thoracic surgeon on board Chest x-ray: Persistent right-sided pleural effusion Repeat CT chest: Noted Status post left pleurex catheter insertion April 16, 2019 Repeat pleural fluid culture: ESBL E coli Continue ertapenem IV (3) Cholecystitis: Chronic cholecystitis, cholangitis, choledocholithiasis Status post ERCP with stone removal and stent placement General surgery on board, plan for eventual cholecystectomy versus cholecystostomy tube placement when patient is medically stable Continue ertapenem IV ID consulted CT abdomen pelvis to follow-up cholangitis/cholecystitis ordered (4) GI bleeding: Hemoglobin stable after blood transfusion and discontinuation of anticoagulation Hemoglobin stable, 9 Anticoagulation on hold at this time-- will discuss with GI (5) Ischemic cardiomyopathy: Declines defibrillator placement Presently, volume overloaded given Lasix IV plus albumin-- > usual PO diuretics resumed (6) S/P TAVR (transcatheter aortic valve replacement): No chest pain, shortness of breath (7) Diabetes mellitus, type II: On Lantus and insulin sliding scale Blood glucose levels within acceptable range (8) Atrial fibrillation: Continue metoprolol Anticoagulation on hold secondary to GI bleeding (9) Coronary artery disease: Medical management with aspirin, Lipitor. Losartan on hold in setting of MARISA. (10) Acute kidney injury: Likely secondary to septic shock. Continue IV fluids, avoid nephrotoxic substances. Hold losartan. Kidney function remains stable (11) DVT (deep venous thrombosis): Anticoagulation is on hold due to GI bleed which required 2 unit of blood transfusion Full code Disposition Pending Subjective ff up for empyema, cholangitis, cardiomyopathy seen resting in bed, comfortable states his breathing is improved today has pain with drainage of Pleurex cath, relieved by Morphine denies abdominal pain, nausea, chills no other symptoms Review of Systems Review of Systems: All systems reviewed & are unremarkable except as noted in HPI & below Physical Exam Physical Exam: General- oriented x 2, not in distress, speaks in sentences with no effort or accessory muscle use Eyes- anicteric Neck- no JVD Lungs- mild rales at the bases, no wheezing Heart- normal rate, regular rhythm; no murmurs Abdomen- normal bowel sounds, nondistended, soft, nontender Extremities- mild lower leg edema, no calf tenderness Neuro- alert, oriented x 3; no gross focal neurologic deficits Skin- warm & dry Results & Data Vital Signs (Past 12 Hours) Vital Signs Temp Pulse Pulse Resp BP Pulse Ox 04/18/19 16:00 85 04/18/19 15:44 36.8 C 72 18 105/56 L 96 04/18/19 12:00 36.5 C 88 88 20 100/54 L 99 04/18/19 07:54 36.8 C 86 20 119/68 96
--- NOTE | 2019-04-18 17:51 | CT Scan Report ---
CT SCAN OF THE ABDOMEN AND PELVIS WITHOUT CONTRAST CLINICAL HISTORY: Abdominal pain. Cholecystitis. COMPARISON STUDY: CT scan dated 04/08/2019 TECHNIQUE: CT scan of the abdomen and pelvis was performed from the lung bases to the proximal femurs . Images are reviewed in the axial, sagittal, and coronal planes. IV contrast was not administered fo r this examination. A dose lowering technique was utilized adhering to the principles of ALARA. CT DOSE: 1549.52 mGy.cm FINDINGS: Lower chest: There are bilateral pleural effusions. There is a left-sided chest tube. There is bilate ral basilar atelectasis/consolidation. There is pleural nodularity on the left. This could be seconda ry to neoplasm or pleurodesis. Liver: No focal hepatic masses are visualized. There is a biliary enteric stent present. There is per ihepatic ascites. There is a slight nodular contour of the liver raise the possibly underlying cirrho sis Gallbladder: Cholelithiasis. There is air present within the gallbladder. This is likely secondary to a biliary enteric stent. Spleen: Normal in size and attenuation. Pancreas: There is an indwelling pancreatic stent. There is no pancreatic ductal dilatation. Adrenal glands: There is mild bilateral adrenal gland thickening Kidneys: There are bilateral arterial calcifications. There is also a 7 mm lower pole left renal ossi fication suspicious for a calculus. There is no hydronephrosis. Bowel: There are no transition zones indicate bowel obstruction. There is colonic diverticulosis. The re is no evidence of acute diverticulitis. The appendix is not visualized with certainty. Peritoneum: There is low volume ascites. There is no free intraperitoneal air. There is a right ingui nal hernia containing ascitic fluid. Vasculature: There are extensive diffuse atheromatous changes. Adenopathy: None. Pelvic viscera: There is a joint Chandler catheter. The bladder is decompressed. The prostate is enlarge d. Skeletal structures: No destructive osseous lesions are seen. IMPRESSION: 1. Bilateral pleural effusions with lower lobe atelectasis/consolidation 2. Left-sided chest tube 3. 37 mm focus of pleural nodularity on the left. This could be secondary to pleurodesis or neoplasm 4. Cirrhotic morphology the liver. Ascites 5. Left-sided nephrolithiasis 6. Indwelling biliary enteric and pancreatic stents 7. Cholelithiasis. Air within the gallbladder likely secondary to the biliary stent. No gallbladder w all thickening. 8. No evidence of bowel obstruction. No evidence of free air 9. Prostatomegaly 10. Right inguinal hernia containing ascitic fluid 11. Diverticulosis. No evidence of acute diverticulitis Electronically signed by: Travon Sim M.D. 04/18/2019 5:50 PM
[2019-04-18] MEDS: ATORVASTATIN 40 MG TAB PO SCH (21:27)
[2019-04-18] MEDS: MoRPHine SULFATE 2 MG/ML CARP IV PRN (21:31)
[2019-04-19] MEDS ORDERED: Nursing to Pharmacy Communication ONE (06:44)
--- NOTE | 2019-04-19 07:08 | XRay Report ---
XR chest 1V portable CLINICAL HISTORY: empyema dyspnea COMPARISON STUDY: 04/18/2019 FINDINGS: Left basilar drainage tube unchanged in position. Increased density left base stable to sli ghtly improved. Right lung remains generally clear. Persistent accentuation basilar parenchymal markings unaltered. Prior median sternotomy unchanged. IMPRESSION: 1. Slight improvement in aeration left lung base. 2. Unchanged drainage tube positioned left base. The above report was generated using voice recognition software. It may contain grammatical, syntax or spelling errors. Electronically signed by: Kenneth Ortiz M.D. 04/19/2019 7:06 AM
[2019-04-19 08:04] LABS: BUN Creatinine Ratio 52.7 (10-20); Calcium 7.9 mg/dl (8.5-10.1); Est GFR (African American) 70.8; Est GFR (Non-African American) 61.1; Potassium 4.3 mmol/L (3.5-5.1)
[2019-04-19] MEDS: SPIRONOLACTONE 25 MG TAB PO SCH (08:07)
[2019-04-19] MEDS: TORSEMIDE 10 MG TAB PO SCH ×2 (08:08→21:02)
[2019-04-19] MEDS: PANTOprazole 40 MG TAB PO SCH (08:09)
[2019-04-19] MEDS: GABAPENTIN 100 MG CAP PO SCH ×3 (08:09→21:02)
[2019-04-19] MEDS: ASPIRIN 81 MG ECTAB PO SCH (08:09)
[2019-04-19] MEDS: MAGNESIUM OXIDE 400 MG TAB PO SCH (08:09)
[2019-04-19] MEDS: INSULIN GLARGINE SOLOSTAR 100 UNITS/ML 3 ML PEN SC SCH ×2 (08:12→21:03)
[2019-04-19] MEDS: INSULIN ASPART 100 UNITS/ML 3 ML PEN SC SCH ×4 (08:15→21:04)
[2019-04-19] MEDS: METOPROLOL TARTRATE 25 MG TAB PO SCH ×2 (09:27→21:06)
[2019-04-19] MEDS: MoRPHine SULFATE 2 MG/ML CARP IV PRN ×2 (09:31→21:01)
[2019-04-19] MEDS: OXYCODONE HCL IR 5 MG TAB (IMMEDIATE RELEASE) PO PRN ×2 (09:32→21:00)
[2019-04-19 09:48] LABS: Basophils # (auto) 0.03 K/uL (0-0.2); Basophils % (auto) 0.2 %; Eosinophils # (auto) 0.14 K/uL (0-0.5); Eosinophils % (auto) 1.2 %; Hematocrit (blood only) 31.7 % (42-52); Hemoglobin 9.8 g/dL (14.0-18.0); Immature Granulocytes # (auto) 0.04 K/uL (0.00-0.02); Immature Granulocytes % (auto) 0.3 %; Lymphocytes # (auto) 0.37 K/uL (1.2-3.4); Mean Corpuscular Hgb Conc 30.9 g/dL (32-36); Mean Corpuscular Volume 88.1 fL (80-100); Mean Platelet Volume 10.2 fL (7.4-10.4); Monocytes # (auto) 0.73 K/uL (0.11-0.59); Neutrophils # (auto) 10.86 K/uL (1.4-6.5); Neutrophils % (auto) 89.3 %; Platelet Count 255 K/uL (130-400); RDW Standard Deviation 60.8 fL (36.4-46.3); White Blood Count 12.17 K/uL (4.8-10.8)
[2019-04-19] MEDS: ALTEPLASE, RECOMBINANT 10 MG in SYRINGE 50 ML IPL SCH ×2 (10:33→22:06)
--- NOTE | 2019-04-19 11:11 | Progress Note ---
DATE: 04/19/2019 Domenico Bustillo was seen today on 04/19/2019. This man is quite ill. He has multiple issues including cholecystitis with choledocholithiasis, ascending cholangitis, a left empyema. He has a beta lactamase producing E. coli. He also has had GI bleeding with anemia and melena. Last year, he underwent a transcatheter aortic valve replacement. He has an ischemic cardiomyopathy. He has had pulmonary emboli in the past. He also has renal insufficiency. He has had a stroke in the past. He suffers from episodes of congestive heart failure and he has diabetes. This morning, he is on 3 liters with a saturation of 100%. Heart rate is about 100. He is moving air fairly well on the left much better than before we put the catheter in. He is in the MIST-2 protocol. Drained about 150 mL this morning of a serous fluid before resuming the TPA and the dornase. We are going to continue giving the TPA and dornase today including this morning and then tonight and then tomorrow, we are going to drain the tube and I am going to get a CAT scan without contrast. His white count is down to 12,170, his hemoglobin is up to 9.8. He appears to be very ill. I thought his x-ray looked a bit better today. He is having less pain when he gets drained. We will see what he looks like tomorrow.
[2019-04-19] MEDS: DORNASE ALFA 5 ML in SYRINGE 25 ML IPL SCH ×2 (12:04→23:21)
--- NOTE | 2019-04-19 13:47 | Pharmacy Report ---
Pharmacy Glycemic Short Note 2 - Date of Service April 19, 2019 - Glycemic Short BSG Results (Last 24 hours): 04/18/19 04/18/19 04/19/19 16:36 20:24 07:14 Glucose POC Glucose 153 H 148 H 88 04/19/19 04/19/19 07:19 11:30 Glucose 75 POC Glucose 181 H OUTPATIENT ANTIDIABETIC REGIMEN: * glipizide 5mg QD * Lantus 75-100 units QD-per patient, dose varies based on BSG * HbA1c: 7.9% ASSESSMENT: 04/19:Fasting BSG 75mg/dl - will reduce HS dose of Lantus slightly to prevent hypoglycemia. S/p left pleurex catheter insertion 04/16/19, pleural fluid culture: ESBL E coli, IV ertapenem IV. Pt continuing MIST-2 protocol, looking very ill today. 04/18: Fasting blood sugar of 201mg/dl, despite 5 units of correctional insulin last night and 15 units of Lantus, will increase PM dose of Lantus, mindful that pat did have hypoglycemia on 04/16 AM with this dose, will place on scale. Other blood sugars at goal. 04/16: Fasting blood sugar 61mg/dl - will decrease PM Lantus dose to prevent hypoglycemia, otherwise blood sugars acceptable. 04/14: Fasting and post prandial BSGs much improved from yesterday. Will slightly loosen carb coverage and evening lantus scale to prevent overshooting. Patient received 125 units of insulin yesterday and 90 units the day before. Patient remains on a full liquid diet 04/12: BSGs in the 300s yesterday evening, likely due to basal deficiency. Will adjust AM lantus scale to help make up this deficiency. Today's FBS WNL. Will continue with HS lantus supplementation. PLAN FOR INPATIENT GLYCEMIC CONTROL: * Hold outpatient oral diabetes medications * Basal: * Lantus 30 units SQ QAM * decrease: SQ HS scale: 18 units for BSGs <200, > or equal to 200 give 22 units * Bolus insulin * NovoLog per scale ACHS * Correction factor 1:15 * Carb ratio: 1:5
--- NOTE | 2019-04-19 14:12 | Cardiology Progress Note ---
Date of Service April 19, 2019 Assessment & Plan (1) Acute on chronic HFrEF (heart failure with reduced ejection fraction): Known ischemic cardiomyopathy, moderate left ventricular systolic dysfunction. EF 30 to 35%. Stable aortic valve prosthetic indices. Continue outpatient diuretic regimen: Torsemide 40 mg in the AM and 20 mg in the PM along with 25 mg of spironolactone. Follow fluid balance, daily weights, electrolytes, and GFR. (2) Atrial fibrillation: Chronic atrial fibrillation. Rates acceptable given the current issues Continue metoprolol as prescribed. Restart Coumadin when cleared by gastroenterology and no further invasive procedures are scheduled. Consider heparin bridging in the interim if bleeding resting acceptable by gastroenterology. (3) Coronary artery disease: Stable Continue medical management Subjective Patient seen and examined at the bedside. Fluid balance negative 1.6 L over the last 24 hours. Continues to feel fatigued. Denies chest pain or shortness of breath. Heart rates remain borderline elevated however reasonable. Patient denies palpitations. Edema improved. Review of Systems Review of Systems: All systems reviewed & are unremarkable except as noted in HPI & below Physical Exam Physical Exam: PE: VSS, Gen: Chronically ill. NAD, awake alert going x3. Heart: Irregular rhythm, borderline tachycardic, normal S1 and S2. No murmur. Lungs: + Left-sided Pleurx catheter. Diminished breath sounds with crackles at the left base. No rhonchi or wheeze. Abdomen: Soft nontender, normal bowel sounds. Extremities: Mild, 1+ bilateral edema. Neuro: No focal motor deficit. Results & Data Vital Signs (Past 12 Hours) Vital Signs Temp Pulse Resp BP BP Pulse Ox 04/19/19 11:33 36.8 C 100 H 20 178/71 H 99 04/19/19 07:07 36.3 C L 101 H 18 88/63 L 100 04/19/19 03:45 36.8 C 97 H 19 94/59 L 98 Laboratory Results Laboratory Results - last 24 hr 04/18/19 04/18/19 04/19/19 16:36 20:24 07:14 WBC RBC Hgb Hct MCV MCH MCHC RDW Std Deviation RDW Coeff of Abi Plt Count MPV Immature Gran % (Auto) Neut % (Auto) Lymph % (Auto) [place] % (Auto) Eos % (Auto) Baso % (Auto) Immature Gran # (Auto) Neut # (Auto) Lymph # (Auto) [place] # (Auto) Eos # (Auto) Baso # (Auto) Sodium Potassium Chloride Carbon Dioxide Anion Gap BUN Creatinine Est Cr Clr Drug Dosing Est GFR ( Amer) Est GFR (Non-Af Amer) BUN/Creatinine Ratio Glucose POC Glucose 153 H 148 H 88 Calcium 04/19/19 04/19/19 04/19/19 07:19 07:19 11:30 WBC 12.17 H RBC 3.60 L Hgb 9.8 L Hct 31.7 L MCV 88.1 MCH 27.2 MCHC 30.9 L RDW Std Deviation 60.8 H RDW Coeff of Abi 19.0 H Plt Count 255 MPV 10.2 Immature Gran % (Auto) 0.3 Neut % (Auto) 89.3 Lymph % (Auto) 3.0 [place] % (Auto) 6.0 Eos % (Auto) 1.2 Baso % (Auto) 0.2 Immature Gran # (Auto) 0.04 H Neut # (Auto) 10.86 H Lymph # (Auto) 0.37 L [place] # (Auto) 0.73 H Eos # (Auto) 0.14 Baso # (Auto) 0.03 Sodium 140 Potassium 4.3 Chloride 107 Carbon Dioxide 28 Anion Gap 5.0 BUN 62 H Creatinine 1.17 Est Cr Clr Drug Dosing 67.0 Est GFR ( Amer) 70.8 Est GFR (Non-Af Amer) 61.1 BUN/Creatinine Ratio 52.7 H Glucose 75 POC Glucose 181 H Calcium 7.9 L
[2019-04-19] MEDS: ERTAPENEM SODIUM 1,000 MG in SODIUM CHLORIDE 0.9% 50 ML IV SCH (16:36)
--- NOTE | 2019-04-19 17:34 | Hospitalist Progress Note ---
Date of Service April 19, 2019 Assessment & Plan (1) Septic shock: Secondary to empyema and cholangitis management noted below Blood pressure stable (2) Pneumonia: Left-sided empyema Chronic respiratory failure with 2 L nasal cannula. Thoracic surgeon on board Chest x-ray: Persistent right-sided pleural effusion Repeat CT chest: Noted Status post left pleurex catheter insertion April 16, 2019 Repeat pleural fluid culture: ESBL E coli Afebrile, leukocytosis decreasing Drainage of left pleural effusion progress Continue ertapenem IV (3) Cholecystitis: Chronic cholecystitis, cholangitis, choledocholithiasis Status post ERCP with stone removal and stent placement General surgery on board, plan for eventual cholecystectomy versus cholecystostomy tube placement when patient is medically stable Continue ertapenem IV ID consulted CT abdomen pelvis to follow-up cholangitis/cholecystitis: No abscess or fluid collection noted (4) GI bleeding: Hemoglobin stable after blood transfusion and discontinuation of anticoagulation Hemoglobin stable, 9 As per discussion with GI okay to resume anticoagulation including heparin and Coumadin (5) Ischemic cardiomyopathy: Declines defibrillator placement Presently, volume overloaded given Lasix IV plus albumin-- > usual PO diuretics resumed (6) S/P TAVR (transcatheter aortic valve replacement): No chest pain, shortness of breath (7) Diabetes mellitus, type II: On Lantus and insulin sliding scale Blood glucose levels within acceptable range (8) Atrial fibrillation: Continue metoprolol As per discussion with cardiology, will resume anticoagulation with Coumadin plus heparin bridge Discussed with SAVANNAH okay to resume anticoagulation Globin (9) Coronary artery disease: Medical management with aspirin, Lipitor. Losartan on hold in setting of MARISA. (10) Acute kidney injury: Likely secondary to septic shock. Continue IV fluids, avoid nephrotoxic substances. Hold losartan. Kidney function remains stable (11) DVT (deep venous thrombosis): Coumadin plus heparin bridge Full code Disposition Pending Subjective Follow-up for empyema, cholangitis, ischemic cardiomyopathy Seen sitting up in bed, comfortable, watching TV Appears brighter today, more alert States he feels improved today compared to yesterday Breathing is "okay ", no cough Denies abdominal pain, nausea, chills No other symptoms Review of Systems Review of Systems: All systems reviewed & are unremarkable except as noted in HPI & below Physical Exam Physical Exam: General- oriented x 3, not in distress, speaks in sentences with no effort or accessory muscle use Eyes- anicteric Neck- no JVD Lungs-mild rales of the left base, clear on the right, no wheezing Heart- normal rate, regular rhythm; no murmurs Abdomen- normal bowel sounds, nondistended, soft, nontender Extremities-mild lower leg edema, no calf tenderness Neuro- alert, oriented x 3; no gross focal neurologic deficits Skin- warm & dry Results & Data Vital Signs (Past 12 Hours) Vital Signs Temp Pulse Resp BP BP Pulse Ox 04/19/19 15:32 36.7 C 110 H 18 95/67 L 98 04/19/19 11:33 36.8 C 100 H 20 178/71 H 99 04/19/19 07:07 36.3 C L 101 H 18 88/63 L 100 Laboratory Results Laboratory Results - last 24 hr 04/18/19 04/19/19 04/19/19 20:24 07:14 07:19 WBC RBC Hgb Hct MCV MCH MCHC RDW Std Deviation RDW Coeff of Abi Plt Count MPV Immature Gran % (Auto) Neut % (Auto) Lymph % (Auto) [place] % (Auto) Eos % (Auto) Baso % (Auto) Immature Gran # (Auto) Neut # (Auto) Lymph # (Auto) [place] # (Auto) Eos # (Auto) Baso # (Auto) Sodium 140 Potassium 4.3 Chloride 107 Carbon Dioxide 28 Anion Gap 5.0 BUN 62 H Creatinine 1.17 Est Cr Clr Drug Dosing 67.0 Est GFR ( Amer) 70.8 Est GFR (Non-Af Amer) 61.1 BUN/Creatinine Ratio 52.7 H Glucose 75 POC Glucose 148 H 88 Calcium 7.9 L 04/19/19 04/19/19 04/19/19 07:19 11:30 16:32 WBC 12.17 H RBC 3.60 L Hgb 9.8 L Hct 31.7 L MCV 88.1 MCH 27.2 MCHC 30.9 L RDW Std Deviation 60.8 H RDW Coeff of Abi 19.0 H Plt Count 255 MPV 10.2 Immature Gran % (Auto) 0.3 Neut % (Auto) 89.3 Lymph % (Auto) 3.0 [place] % (Auto) 6.0 Eos % (Auto) 1.2 Baso % (Auto) 0.2 Immature Gran # (Auto) 0.04 H Neut # (Auto) 10.86 H Lymph # (Auto) 0.37 L [place] # (Auto) 0.73 H Eos # (Auto) 0.14 Baso # (Auto) 0.03 Sodium Potassium Chloride Carbon Dioxide Anion Gap BUN Creatinine Est Cr Clr Drug Dosing Est GFR ( Amer) Est GFR (Non-Af Amer) BUN/Creatinine Ratio Glucose POC Glucose 181 H 158 H Calcium
[2019-04-19] MEDS ORDERED: WARFARIN SOD 5 MG TAB PO ONE (17:40)
[2019-04-19 18:26] LABS: Calcium 7.9 mg/dl (8.5-10.1); Creatinine Clr Calc Pharmacy 66.4 ml/min; Est GFR (Non-African American) 60.4; Potassium 4.4 mmol/L (3.5-5.1)
[2019-04-19] MEDS: Heparin Adult LOW DOSE Wt-Based Dextrose 5% 25,000 units/500 mL IV SCH (18:53)
[2019-04-19] MEDS: Heparin IV Low Dose *NO* Bolus IV SCH ×4 (19:06→19:12)
[2019-04-19] MEDS: DOCUSATE SODIUM 100 MG CAP PO PRN (21:00)
[2019-04-19] MEDS: ATORVASTATIN 40 MG TAB PO SCH (21:03)
[2019-04-20 01:34] LABS: Partial Thromboplastin Ratio 1.5; Partial Thromboplastin Time 40.8 Seconds (21.0-31.0)
[2019-04-20] MEDS ORDERED: HEPARIN IV BOLUS 4,500 UNITS in SYRINGE 0 ML IV ONE (02:15)
[2019-04-20] MEDS: CARBOHYDRATES FOR HYPOGLYCEMIA PO PRN (07:26)
[2019-04-20 08:20] LABS: Basophils # (auto) 0.04 K/uL (0-0.2); Basophils % (auto) 0.4 %; Eosinophils # (auto) 0.09 K/uL (0-0.5); Eosinophils % (auto) 0.8 %; Hematocrit (blood only) 30.7 % (42-52); Hemoglobin 9.4 g/dL (14.0-18.0); Immature Granulocytes # (auto) 0.02 K/uL (0.00-0.02); Immature Granulocytes % (auto) 0.2 %; Lymphocytes # (auto) 0.35 K/uL (1.2-3.4); Lymphocytes % (auto) 3.1 %; Mean Corpuscular Hgb Conc 30.6 g/dL (32-36); Mean Platelet Volume 9.9 fL (7.4-10.4); Monocytes # (auto) 0.75 K/uL (0.11-0.59); Monocytes % (auto) 6.6 %; Neutrophils # (auto) 10.05 K/uL (1.4-6.5); Neutrophils % (auto) 88.9 %; Platelet Count 254 K/uL (130-400); RDW Standard Deviation 61.2 fL (36.4-46.3); Red Blood Count 3.45 M/uL (4.7-6.1)
[2019-04-20] MEDS: OXYCODONE HCL IR 5 MG TAB (IMMEDIATE RELEASE) PO PRN ×2 (08:21→20:21)
[2019-04-20 08:42] LABS: Partial Thromboplastin Ratio 2.4
[2019-04-20 08:45] LABS: Partial Thromboplastin Time 65.7 Seconds (21.0-31.0)
--- NOTE | 2019-04-20 09:28 | CT Scan Report ---
CT chest wo con CLINICAL HISTORY: Left-sided empyema COMPARISON STUDY: 04/16/2019 CT DOSE: TECHNIQUE: CT of the thorax was performed from the thoracic inlet to the lung bases. Images are revi ewed in the axial, sagittal, and coronal planes. IV contrast was not administered for this examinatio n. A dose lowering technique was utilized adhering to the principles of ALARA. FINDINGS: Thyroid: Imaged portions of the thyroid gland are normal in appearance. Thoracic aorta: The ascending thoracic aorta measures 38 mm. Heart: The heart is enlarged. There are coronary artery calcifications. Lungs and pleural spaces: There is a persistent moderate right pleural effusion. There is been interv al placement of a left-sided chest tube with marked interval decrease in the size of the left pleural effusion. There is left-sided pleural thickening. There are dependent right lower lobe airspace opac ities likely representing compressive atelectasis. There are left lower lobe airspace opacities with air bronchograms, possibly representing a pneumonia. Mediastinum: There is mild mediastinal lymphaden opathy similar to the prior study. Several AP window nodes are calcified. Mary: There is suspected mild hilar node enlargement. Evaluation is limited study was performed witho ut contrast Axilla: There is no evidence of pathologic axillary lymphadenopathy Upper abdomen: Partially visualized upper abdominal viscera is within normal limits. Skeletal structures: There is a left 10th rib fracture, unchanged from the prior study. IMPRESSION: 1. Stable mediastinal lymphadenopathy 2. Stable moderate right pleural effusion with dependent right lobe airspace opacities likely atelect atic 3. Interval decrease in the size of the left pleural fluid collection status post chest tube placemen t. There is no pneumothorax. There is left-sided pleural thickening. There is left lower lobe pulmona ry consolidation with air bronchograms possibly representing a pneumonia 4. Mild interlobular septal edema. Cardiomegaly and extensive coronary artery calcifications. Electronically signed by: Travon Sim M.D. 04/20/2019 9:26 AM
--- NOTE | 2019-04-20 09:44 | Cardiology Progress Note ---
Date of Service April 20, 2019 Assessment & Plan (1) Acute on chronic HFrEF (heart failure with reduced ejection fraction): Known ischemic cardiomyopathy, moderate left ventricular systolic dysfunction. EF 30 to 35%. Stable aortic valve prosthetic indices. Continue outpatient diuretic regimen: Torsemide 40 mg in the AM and 20 mg in the PM along with 25 mg of spironolactone. Follow fluid balance, daily weights, electrolytes, and GFR. Ultimate goal to maintain negative volume status Low albumin level will make maintaining fluid status difficult. Will need to increase activity, address nutrition (2) Atrial fibrillation: Chronic atrial fibrillation. Rates acceptable given the current issues Continue metoprolol as prescribed. Watching for signs of bleeding, heparin infusion started (3) Coronary artery disease: Stable Continue medical management (4) S/P TAVR (transcatheter aortic valve replacement): Subjective Patient was seen and examined, chart medications and telemetry all reviewed. Patient underwent CT scan this morning formal report pending. By personal review still bilateral pleural effusions. Has responded to IV Lasix overnight with good diuresis and preserved renal function. No recent bowel movements no abdominal pain no bleeding. Review of Systems Review of Systems: As per HPI Physical Exam Constitutional: Washed out appearing, but no acute distress Neck: trachea midline, no thyromegaly No distinct jugular venous distention Respiratory: Diminished inspiration and diminished breath sounds bibasilar Cardiovascular: Rate/Rhythm: + irregularly irregular Heart Sounds: + murmur (Grade 2/6 systolic no diastolic murmur) Extremities: + edema (Minimal); no calf tenderness Gastrointestinal (Abdomen): Percussion/Palpation: abdomen soft; abdomen nontender Psychiatric: Affect: + flat affect Results & Data Vital Signs (Past 12 Hours) Vital Signs Temp Pulse Pulse Pulse Resp BP BP 04/20/19 07:15 36.8 C 102 H 24 107/54 L 04/20/19 04:00 37.1 C 106 H 19 96/63 L 04/19/19 23:59 91 H 04/19/19 23:13 37.1 C 97 H 19 91/36 L Pulse Ox 04/20/19 07:15 98 04/20/19 04:00 98 04/19/19 23:59 04/19/19 23:13 94 Laboratory Results Laboratory Results - last 24 hr 04/16/19 04/19/19 04/19/19 Unknown :19 11:30 WBC 12.17 H RBC 3.60 L Hgb 9.8 L Hct 31.7 L MCV 88.1 MCH 27.2 MCHC 30.9 L RDW Std Deviation 60.8 H RDW Coeff of Abi 19.0 H Plt Count 255 MPV 10.2 Immature Gran % (Auto) 0.3 Neut % (Auto) 89.3 Lymph % (Auto) 3.0 [place] % (Auto) 6.0 Eos % (Auto) 1.2 Baso % (Auto) 0.2 Immature Gran # (Auto) 0.04 H Neut # (Auto) 10.86 H Lymph # (Auto) 0.37 L [place] # (Auto) 0.73 H Eos # (Auto) 0.14 Baso # (Auto) 0.03 APTT PTT Ratio Sodium Potassium Chloride Carbon Dioxide Anion Gap BUN Creatinine Est Cr Clr Drug Dosing Est GFR ( Amer) Est GFR (Non-Af Amer) BUN/Creatinine Ratio Glucose POC Glucose 181 H Calcium Pleural Cholesterol 22 04/19/19 04/19/19 04/19/19 16:32 17:49 20:31 WBC RBC Hgb Hct MCV MCH MCHC RDW Std Deviation RDW Coeff of Abi Plt Count MPV Immature Gran % (Auto) Neut % (Auto) Lymph % (Auto) [place] % (Auto) Eos % (Auto) Baso % (Auto) Immature Gran # (Auto) Neut # (Auto) Lymph # (Auto) [place] # (Auto) Eos # (Auto) Baso # (Auto) APTT PTT Ratio Sodium 142 Potassium 4.4 Chloride 105 Carbon Dioxide 29 Anion Gap 8.0 BUN 63 H Creatinine 1.18 Est Cr Clr Drug Dosing 66.4 Est GFR ( Amer) 70.0 Est GFR (Non-Af Amer) 60.4 BUN/Creatinine Ratio 53.0 H Glucose 141 H POC Glucose 158 H 169 H Calcium 7.9 L Pleural Cholesterol 04/20/19 04/20/19 04/20/19 01:12 07:15 07:18 WBC RBC Hgb Hct MCV MCH MCHC RDW Std Deviation RDW Coeff of Abi Plt Count MPV Immature Gran % (Auto) Neut % (Auto) Lymph % (Auto) [place] % (Auto) Eos % (Auto) Baso % (Auto) Immature Gran # (Auto) Neut # (Auto) Lymph # (Auto) [place] # (Auto) Eos # (Auto) Baso # (Auto) APTT 40.8 H PTT Ratio 1.5 Sodium Potassium Chloride Carbon Dioxide Anion Gap BUN Creatinine Est Cr Clr Drug Dosing Est GFR ( Amer) Est GFR (Non-Af Amer) BUN/Creatinine Ratio Glucose POC Glucose 63 L* 62 L* Calcium Pleural Cholesterol 04/20/19 04/20/19 04/20/19 07:44 08:07 08:07 WBC 11.30 H RBC 3.45 L Hgb 9.4 L Hct 30.7 L MCV 89.0 MCH 27.2 MCHC 30.6 L RDW Std Deviation 61.2 H RDW Coeff of Abi 19.0 H Plt Count 254 MPV 9.9 Immature Gran % (Auto) 0.2 Neut % (Auto) 88.9 Lymph % (Auto) 3.1 [place] % (Auto) 6.6 Eos % (Auto) 0.8 Baso % (Auto) 0.4 Immature Gran # (Auto) 0.02 Neut # (Auto) 10.05 H Lymph # (Auto) 0.35 L [place] # (Auto) 0.75 H Eos # (Auto) 0.09 Baso # (Auto) 0.04 APTT 65.7 H* PTT Ratio 2.4 Sodium Potassium Chloride Carbon Dioxide Anion Gap BUN Creatinine Est Cr Clr Drug Dosing Est GFR ( Amer) Est GFR (Non-Af Amer) BUN/Creatinine Ratio Glucose POC Glucose 75 Calcium Pleural Cholesterol
[2019-04-20] MEDS: SPIRONOLACTONE 25 MG TAB PO SCH (09:50)
[2019-04-20] MEDS: METOPROLOL TARTRATE 25 MG TAB PO SCH ×2 (09:50→20:13)
[2019-04-20] MEDS: SENNA 8.6 MG TAB PO PRN (09:50)
[2019-04-20] MEDS: PANTOprazole 40 MG TAB PO SCH (09:50)
[2019-04-20] MEDS: ASPIRIN 81 MG ECTAB PO SCH (09:50)
[2019-04-20] MEDS: MAGNESIUM OXIDE 400 MG TAB PO SCH (09:50)
[2019-04-20] MEDS: GABAPENTIN 100 MG CAP PO SCH ×3 (09:50→20:13)
[2019-04-20] MEDS: TORSEMIDE 10 MG TAB PO SCH ×2 (09:50→20:14)
[2019-04-20] MEDS: INSULIN ASPART 100 UNITS/ML 3 ML PEN SC SCH ×4 (10:14→21:54)
[2019-04-20] MEDS: INSULIN GLARGINE SOLOSTAR 100 UNITS/ML 3 ML PEN SC SCH ×2 (10:15→21:53)
--- NOTE | 2019-04-20 14:02 | Progress Note ---
DATE: 04/20/2019 He is a bit better from a respiratory standpoint, although he is tachypneic. He is on 2 liters with 100% saturation. In addition, his white count is down to 11,030, which is the lowest it has been in his hospitalization. Hemoglobin stable at 9.4. His glucoses have also been lower. The CT scan showed very little fluid on the left side. In fact, I would keep the PleurX in for the time being. I may want to repeat the MIST-2 protocol; however, at this point I would just like to draining for the next couple of days. On the other hand, he has an effusion on the right. I am going to discuss draining this at the bedside with the patient later this afternoon.
[2019-04-20] MEDS: ERTAPENEM SODIUM 1,000 MG in SODIUM CHLORIDE 0.9% 50 ML IV SCH (16:25)
[2019-04-20] MEDS: Heparin Adult LOW DOSE Wt-Based Dextrose 5% 25,000 units/500 mL IV SCH (16:25)
--- NOTE | 2019-04-20 17:53 | Infectious Disease Progress Nt ---
Date of Service April 20, 2019 Assessment & Plan (1) Empyema, left: 74-year-old male with chronic cholecystitis, cholangitis, choledocholithiasis, and now empyema of the left chest with ESBL producing E. coli. Now status post Pleurx catheter placement, patient slightly improved. Would continue on current antibiotics. Await repeat chest CT re: right effusion. Will follow. (2) Cholecystitis, chronic: (3) Infection due to ESBL-producing Escherichia coli: Subjective Patient seen in follow-up for empyema" colitis/cholecystitis. Patient offers no new complaints today. Remains afebrile. Hemodynamically stable overnight. Review of Systems Review of Systems: All systems reviewed & are unremarkable except as noted in HPI & below Physical Exam Constitutional: WD/WN, vitals as above well developed, + ill appearing and comfortable; no acute distress Eyes: PERRL, conjunctivae normal, anicteric sclerae ENMT: external ear and nose normal, oropharynx normal Neck: trachea midline, no thyromegaly neck nontender Respiratory: normal percussion and + dullness to percussion (Left base); no respiratory distress Auscultation: + diminished lung sounds (Left base) and + rhonchi Cardiovascular: Rate/Rhythm: regular rate and regular rhythm Heart Sounds: normal S1 and normal S2; no gallop, no murmur and no cardiac rub Vessels: normal peripheral pulses; no JVD Gastrointestinal (Abdomen): normal bowel sounds, soft, nontender, no hepatosplenomegaly Inspection/Auscultation: abdomen normal to inspection and normal bowel sounds Percussion/Palpation: + abdomen tender (Right upper quadrant); no hepatosplenomegaly and no abdominal mass Musculoskeletal: no cyanosis or clubbing, extremities motor strength 5/5 Spine: thoracic spine normal to inspection and lumbar spine normal to inspection; no cervical spinal tenderness Skin: no rashes, warm and dry normal turgor; no lesions Neurologic: patellar DTR's 2+ bilat, sensation intact moves all extremities and awake; no focal motor deficits Motor/Sensory: no sensory deficit Psychiatric: A+Ox3, euthymic affect Orientation: cooperative Lymphatic: no cervical or axillary lymphadenopathy no inguinal lymphadenopathy Results & Data Vital Signs (Past 12 Hours) Vital Signs Temp Pulse Pulse Pulse Resp BP Pulse Ox 04/20/19 15:35 36.9 C 98 H 20 109/72 95 04/20/19 12:00 36.8 C 94 H 32 H 104/45 L 100 04/20/19 08:00 91 H 04/20/19 07:15 36.8 C 102 H 24 107/54 L 98
--- NOTE | 2019-04-20 18:53 | Hospitalist Progress Note ---
Date of Service April 20, 2019 Assessment & Plan (1) Septic shock: Secondary to empyema and cholangitis management noted below Blood pressure stable (2) Pneumonia: Left-sided empyema Chronic respiratory failure with 2 L nasal cannula. Thoracic surgeon on board Chest x-ray: Persistent right-sided pleural effusion Repeat CT chest: Noted Status post left pleurex catheter insertion April 16, 2019 Repeat pleural fluid culture: ESBL E coli Afebrile, leukocytosis decreasing Drainage of left pleural effusion progress Repeat CT chest: Decreased left pleural effusion, persistent right pleural effusion Clinically improved today Continue ertapenem IV Appreciate thoracic surgery service, ID service recommendations (3) Cholecystitis: Chronic cholecystitis, cholangitis, choledocholithiasis Status post ERCP with stone removal and stent placement General surgery on board, plan for eventual cholecystectomy versus cholecystostomy tube placement when patient is medically stable Continue ertapenem IV ID consulted CT abdomen pelvis to follow-up cholangitis/cholecystitis: No abscess or fluid collection noted (4) GI bleeding: Hemoglobin stable after blood transfusion and discontinuation of anticoagulation Hemoglobin stable, 9 As per discussion with GI, okay to resume anticoagulation including heparin and Coumadin (5) Ischemic cardiomyopathy: Declines defibrillator placement Presently, volume overloaded given Lasix IV plus albumin-- > usual PO diuretics resumed (6) S/P TAVR (transcatheter aortic valve replacement): No chest pain, shortness of breath (7) Diabetes mellitus, type II: On Lantus and insulin sliding scale Blood glucose levels within acceptable range (8) Atrial fibrillation: Continue metoprolol As per discussion with cardiology, will resume anticoagulation with Coumadin plus heparin bridge Discussed with GI, okay to resume anticoagulation (9) Coronary artery disease: Medical management with aspirin, Lipitor. Losartan on hold in setting of MARISA. (10) Acute kidney injury: Likely secondary to septic shock. Continue IV fluids, avoid nephrotoxic substances. Hold losartan. Kidney function remains stable (11) DVT (deep venous thrombosis): Coumadin plus heparin bridge Full code Disposition Pending Subjective Follow-up for empyema, cholangitis/cholecystitis, ischemic cardiomyopathy Seen resting in bedside chair, comfortable, not in distress Seems to be more alert, conversant, brighter today States he feels okay overall Shortness of breath, cough, chills No abdominal pain, nausea Denies other symptoms Review of Systems Review of Systems: All systems reviewed & are unremarkable except as noted in HPI & below Physical Exam Physical Exam: General- oriented x 3, not in distress, speaks in sentences with no effort or accessory muscle use Eyes- anicteric Neck- no JVD Lungs-mild rales at the bases, decreased breath on the right base, no wheezing Heart- normal rate, regular rhythm; no murmurs Abdomen- normal bowel sounds, nondistended, soft, nontender Extremities- no pretibial edema, no calf tenderness Neuro- alert, oriented x 3; no gross focal neurologic deficits Skin- warm & dry Results & Data Vital Signs (Past 12 Hours) Vital Signs Temp Pulse Pulse Pulse Resp BP Pulse Ox 04/20/19 16:00 97 H 04/20/19 15:35 36.9 C 98 H 20 109/72 95 04/20/19 12:00 36.8 C 94 H 32 H 104/45 L 100 04/20/19 08:00 91 H 04/20/19 07:15 36.8 C 102 H 24 107/54 L 98 Laboratory Results Laboratory Results - last 24 hr 04/16/19 04/19/19 04/20/19 Unknown 20:31 01:12 WBC RBC Hgb Hct MCV MCH MCHC RDW Std Deviation RDW Coeff of Abi Plt Count MPV Immature Gran % (Auto) Neut % (Auto) Lymph % (Auto) [place] % (Auto) Eos % (Auto) Baso % (Auto) Immature Gran # (Auto) Neut # (Auto) Lymph # (Auto) [place] # (Auto) Eos # (Auto) Baso # (Auto) APTT 40.8 H PTT Ratio 1.5 POC Glucose 169 H Pleural Cholesterol 22 04/20/19 04/20/19 04/20/19 07:15 07:18 07:44 WBC RBC Hgb Hct MCV MCH MCHC RDW Std Deviation RDW Coeff of Abi Plt Count MPV Immature Gran % (Auto) Neut % (Auto) Lymph % (Auto) [place] % (Auto) Eos % (Auto) Baso % (Auto) Immature Gran # (Auto) Neut # (Auto) Lymph # (Auto) [place] # (Auto) Eos # (Auto) Baso # (Auto) APTT PTT Ratio POC Glucose 63 L* 62 L* 75 Pleural Cholesterol 04/20/19 04/20/19 04/20/19 08:07 08:07 11:43 WBC 11.30 H RBC 3.45 L Hgb 9.4 L Hct 30.7 L MCV 89.0 MCH 27.2 MCHC 30.6 L RDW Std Deviation 61.2 H RDW Coeff of Abi 19.0 H Plt Count 254 MPV 9.9 Immature Gran % (Auto) 0.2 Neut % (Auto) 88.9 Lymph % (Auto) 3.1 [place] % (Auto) 6.6 Eos % (Auto) 0.8 Baso % (Auto) 0.4 Immature Gran # (Auto) 0.02 Neut # (Auto) 10.05 H Lymph # (Auto) 0.35 L [place] # (Auto) 0.75 H Eos # (Auto) 0.09 Baso # (Auto) 0.04 APTT 65.7 H* PTT Ratio 2.4 POC Glucose 176 H Pleural Cholesterol 04/20/19 16:23 WBC RBC Hgb Hct MCV MCH MCHC RDW Std Deviation RDW Coeff of Abi Plt Count MPV Immature Gran % (Auto) Neut % (Auto) Lymph % (Auto) [place] % (Auto) Eos % (Auto) Baso % (Auto) Immature Gran # (Auto) Neut # (Auto) Lymph # (Auto) [place] # (Auto) Eos # (Auto) Baso # (Auto) APTT PTT Ratio POC Glucose 168 H Pleural Cholesterol
[2019-04-20 19:47] LABS: INR 1.4 (0.9-1.1); Prothrombin Time 14.3 Seconds (9.0-12.0)
[2019-04-20] MEDS: ATORVASTATIN 40 MG TAB PO SCH (20:14)
[2019-04-20] MEDS: DOCUSATE SODIUM 100 MG CAP PO PRN (20:21)
[2019-04-20] MEDS: ZOLPIDEM TARTRATE 5 MG TAB PO PRN (20:21)
[2019-04-20] MEDS ORDERED: WARFARIN SOD 5 MG TAB PO ONE (21:28)
[2019-04-21 06:31] LABS: Basophils # (auto) 0.04 K/uL (0-0.2); Basophils % (auto) 0.5 %; Eosinophils # (auto) 0.14 K/uL (0-0.5); Eosinophils % (auto) 1.7 %; Hematocrit (blood only) 27.3 % (42-52); Hemoglobin 8.5 g/dL (14.0-18.0); Immature Granulocytes # (auto) 0.03 K/uL (0.00-0.02); Immature Granulocytes % (auto) 0.4 %; Lymphocytes # (auto) 0.34 K/uL (1.2-3.4); Lymphocytes % (auto) 4.1 %; Mean Corpuscular Hgb Conc 31.1 g/dL (32-36); Mean Corpuscular Volume 86.7 fL (80-100); Monocytes # (auto) 0.55 K/uL (0.11-0.59); Monocytes % (auto) 6.7 %; Neutrophils # (auto) 7.15 K/uL (1.4-6.5); Neutrophils % (auto) 86.6 %; Platelet Count 246 K/uL (130-400); RDW Standard Deviation 59.8 fL (36.4-46.3); Red Blood Count 3.15 M/uL (4.7-6.1); White Blood Count 8.25 K/uL (4.8-10.8)
[2019-04-21 06:41] LABS: INR 1.4 (0.9-1.1); Prothrombin Time 14.4 Seconds (9.0-12.0)
[2019-04-21 07:13] LABS: BUN Creatinine Ratio 51.1 (10-20); Calcium 7.4 mg/dl (8.5-10.1); Creatinine Clr Calc Pharmacy 70.7 ml/min; Est GFR (African American) 75.4; Est GFR (Non-African American) 65.1; Potassium 4.2 mmol/L (3.5-5.1)
[2019-04-21] MEDS: GABAPENTIN 100 MG CAP PO SCH ×3 (08:52→21:10)
[2019-04-21] MEDS: METOPROLOL TARTRATE 25 MG TAB PO SCH ×2 (08:52→21:10)
[2019-04-21] MEDS: PANTOprazole 40 MG TAB PO SCH (08:52)
[2019-04-21] MEDS: TORSEMIDE 10 MG TAB PO SCH ×2 (08:53→21:11)
[2019-04-21] MEDS: SPIRONOLACTONE 25 MG TAB PO SCH (08:53)
[2019-04-21] MEDS: MAGNESIUM OXIDE 400 MG TAB PO SCH (08:54)
[2019-04-21] MEDS: ASPIRIN 81 MG ECTAB PO SCH (08:54)
[2019-04-21] MEDS: INSULIN GLARGINE SOLOSTAR 100 UNITS/ML 3 ML PEN SC SCH ×2 (08:55→21:09)
[2019-04-21] MEDS: INSULIN ASPART 100 UNITS/ML 3 ML PEN SC SCH ×4 (08:57→21:10)
--- NOTE | 2019-04-21 09:18 | Progress Note ---
DATE: 04/21/2019 Mr. Bustillo was seen today. He has not changed much clinically. He has a right pleural effusion. We looked at this with the ultrasound and he hast a significant amount of fluid and we are going to drain that this morning. About 200 mL of bloody fluid was drained from his PleurX. I was quite pleased with his CT scan yesterday from an empyema standpoint. At this point, we are going to continue the MIST protocol, but due to the heparin drip and the fact that it is a bloody effusion, we are going to hold the TPA and just give dornase. Mr. Bustillo's white count is normal for the first time since he was hospitalized on 04/05/2019. He also states he feels a bit better. Saturations are 93% on 2 liters. I suspect it may get better after we tap him. PAMELLA
--- NOTE | 2019-04-21 09:31 | XRay Report ---
XR chest 1V portable CLINICAL HISTORY: thoracentesis COMPARISON STUDY: 04/19/2019 FINDINGS: Left basilar drainage catheter unchanged in position. Left pleural effusion including pleur al thickening lateral aspect left hemithorax is unchanged. Pulmonary vasculature remains prominent. No significant pneumothorax. IMPRESSION: 1. No postprocedural pneumothorax. 2. Left basilar drainage catheter unchanged in position. 3. Unchanged left basilar pleural effusion and/or atelectatic change. The above report was generated using voice recognition software. It may contain grammatical, syntax or spelling errors. Electronically signed by: Kenneth Ortiz M.D. 04/21/2019 9:29 AM
[2019-04-21 10:34] LABS: RBC Pleural Fluid (A) 8000 /uL; Source Pleural Fluid RIGHT LUNG; WBC Pleural Fluid (A) 88 /uL
--- NOTE | 2019-04-21 11:35 | Cardiology Progress Note ---
Date of Service April 21, 2019 Assessment & Plan (1) Acute on chronic HFrEF (heart failure with reduced ejection fraction): Known ischemic cardiomyopathy, moderate left ventricular systolic dysfunction. EF 30 to 35%. Stable aortic valve prosthetic indices. Continue outpatient diuretic regimen: Torsemide 40 mg in the AM and 20 mg in the PM along with 25 mg of spironolactone. Follow fluid balance, daily weights, electrolytes, and GFR. Ultimate goal to maintain equal to negative volumes status Low albumin level will make maintaining fluid status difficult. Will need to increase activity Nutrition status is concerning may need to consider parenteral nutrition (2) Atrial fibrillation: Chronic atrial fibrillation. Rates acceptable given the current issues Continue metoprolol as prescribed. Watching for signs of bleeding, heparin infusion started (3) Coronary artery disease: Stable Continue medical management (4) S/P TAVR (transcatheter aortic valve replacement): History of TAVR complicated by prosthetic fracture and then underwent open surgical aortic valve replacement in 2017. Resume aspirin for stroke prophylaxis. Continue knee-high sequential pneumatic compression devices for DVT prophylaxis. Patient is also been found to have choledocholithiasis and laparoscopic cholecystectomy is to be reconsidered in the future after he recovers from his current illness. Subjective Thoracentesis of the right chest Patient was seen and examined, chart medications and telemetry all reviewed. Patient underwent thoracentesis of the right chest today with transudative fluid removed. Notes no focal complaints other than tenderness with cough. No abdominal pain or discomfort. No syncope or near syncope. Heart rates appear controlled on telemetry Physical Exam Neck: trachea midline, no thyromegaly Respiratory: Mildly diminished breath sounds at the base Cardiovascular: Rate/Rhythm: + irregularly irregular Heart Sounds: + murmur (Grade 2/6 systolic no diastolic murmur) Extremities: + edema (Minimal); no calf tenderness Gastrointestinal (Abdomen): Percussion/Palpation: abdomen soft; abdomen nontender Psychiatric: Affect: + flat affect Results & Data Vital Signs (Past 12 Hours) Vital Signs Temp Pulse Pulse Pulse Resp BP BP 04/21/19 10:54 36.8 C 92 H 20 84/45 L 04/21/19 07:05 36.7 C 103 H 20 97/54 L 04/21/19 04:00 36.6 C 92 H 18 138/63 04/21/19 00:11 94 H 04/20/19 23:43 36.6 C 89 19 132/72 Pulse Ox 04/21/19 10:54 98 04/21/19 07:05 93 04/21/19 04:00 96 04/21/19 00:11 04/20/19 23:43 97 Laboratory Results Laboratory Results - last 24 hr 04/20/19 04/20/19 04/20/19 08:07 11:43 16:23 WBC RBC Hgb Hct MCV MCH MCHC RDW Std Deviation RDW Coeff of Abi Plt Count MPV Immature Gran % (Auto) Neut % (Auto) Lymph % (Auto) [place] % (Auto) Eos % (Auto) Baso % (Auto) Immature Gran # (Auto) Neut # (Auto) Lymph # (Auto) [place] # (Auto) Eos # (Auto) Baso # (Auto) PT 14.3 H INR 1.4 H Sodium Potassium Chloride Carbon Dioxide Anion Gap BUN Creatinine Est Cr Clr Drug Dosing Est GFR ( Amer) Est GFR (Non-Af Amer) BUN/Creatinine Ratio Glucose POC Glucose 176 H 168 H Calcium Pleural Fluid Source Pleural Color Pleural Appearance Pleural WBC Pleural RBC Pleural Polynuclear % Pleural Mononuclear % Pleural Total Protein Pleural LDH Pleural Glucose Pleural Amylase Pleural Cholesterol 04/20/19 04/21/19 04/21/19 20:34 06:00 06:00 WBC 8.25 RBC 3.15 L Hgb 8.5 L Hct 27.3 L MCV 86.7 MCH 27.0 MCHC 31.1 L RDW Std Deviation 59.8 H RDW Coeff of Abi 19.0 H Plt Count 246 MPV 10.0 Immature Gran % (Auto) 0.4 Neut % (Auto) 86.6 Lymph % (Auto) 4.1 [place] % (Auto) 6.7 Eos % (Auto) 1.7 Baso % (Auto) 0.5 Immature Gran # (Auto) 0.03 H Neut # (Auto) 7.15 H Lymph # (Auto) 0.34 L [place] # (Auto) 0.55 Eos # (Auto) 0.14 Baso # (Auto) 0.04 PT 14.4 H INR 1.4 H Sodium Potassium Chloride Carbon Dioxide Anion Gap BUN Creatinine Est Cr Clr Drug Dosing Est GFR ( Amer) Est GFR (Non-Af Amer) BUN/Creatinine Ratio Glucose POC Glucose 289 H Calcium Pleural Fluid Source Pleural Color Pleural Appearance Pleural WBC Pleural RBC Pleural Polynuclear % Pleural Mononuclear % Pleural Total Protein Pleural LDH Pleural Glucose Pleural Amylase Pleural Cholesterol 04/21/19 04/21/19 04/21/19 06:00 07:03 08:50 WBC RBC Hgb Hct MCV MCH MCHC RDW Std Deviation RDW Coeff of Abi Plt Count MPV Immature Gran % (Auto) Neut % (Auto) Lymph % (Auto) [place] % (Auto) Eos % (Auto) Baso % (Auto) Immature Gran # (Auto) Neut # (Auto) Lymph # (Auto) [place] # (Auto) Eos # (Auto) Baso # (Auto) PT INR Sodium 140 Potassium 4.2 Chloride 105 Carbon Dioxide 31 Anion Gap 4.0 BUN 57 H Creatinine 1.11 Est Cr Clr Drug Dosing 70.7 Est GFR ( Amer) 75.4 Est GFR (Non-Af Amer) 65.1 BUN/Creatinine Ratio 51.1 H Glucose 79 POC Glucose 99 Calcium 7.4 L Pleural Fluid Source RIGHT LUNG Pleural Color JOSE Pleural Appearance HAZY Pleural WBC 88 Pleural RBC 8000 Pleural Polynuclear % 44.0 Pleural Mononuclear % 56.0 Pleural Total Protein Pleural LDH Pleural Glucose Pleural Amylase Pleural Cholesterol 04/21/19 04/21/19 08:50 08:50 WBC RBC Hgb Hct MCV MCH MCHC RDW Std Deviation RDW Coeff of Abi Plt Count MPV Immature Gran % (Auto) Neut % (Auto) Lymph % (Auto) [place] % (Auto) Eos % (Auto) Baso % (Auto) Immature Gran # (Auto) Neut # (Auto) Lymph # (Auto) [place] # (Auto) Eos # (Auto) Baso # (Auto) PT INR Sodium Potassium Chloride Carbon Dioxide Anion Gap BUN Creatinine Est Cr Clr Drug Dosing Est GFR ( Amer) Est GFR (Non-Af Amer) BUN/Creatinine Ratio Glucose POC Glucose Calcium Pleural Fluid Source Pleural Color Pleural Appearance Pleural WBC Pleural RBC Pleural Polynuclear % Pleural Mononuclear % Pleural Total Protein 2.0 Pleural LDH 116 Pleural Glucose 117 Pleural Amylase 23 Pleural Cholesterol Pending
--- NOTE | 2019-04-21 12:02 | Operative Report ---
DATE OF OPERATION: 04/21/2019 PREOPERATIVE DIAGNOSIS: Enlarging right pleural effusion. POSTOPERATIVE DIAGNOSIS: Enlarging right pleural effusion. PROCEDURE PERFORMED: Ultrasound-guided right thoracentesis. SURGEON: Jacques Paula MD. BILLING SUPERVISOR: JED Arana. ANESTHESIA: Local. SPECIFICS OF PROCEDURE: With the patient in a seated position, an ultrasound was used to find a good window into the pleural cavity, which is a little bit lateral to the midaxillary line posteriorly. The patient was prepped and draped in usual sterile fashion. After an appropriate timeout had been called, a 25-gauge needle with 1% Xylocaine was used to anesthetize skin and subcutaneous tissues. A larger needle was used to anesthetize the intercostal muscles and pleura. We got free flowing rust-colored fluid back. A guidewire was inserted in the needle and the needle removed. A dilator was slid over this and then removed, and a triple-lumen catheter slid in to 17 cm and the guidewire removed. 1100 mL of a rust-colored fluid was drained. The pH was 7.53. He developed some mild end expiratory coughing and the drainage stopped. I removed the catheter. Antimicrobial dressing was placed. A chest x-ray is pending. I attest to the content of the Intraoperative Record and any orders documented therein. Any exception s are noted below.
[2019-04-21] MEDS: DORNASE ALFA 5 ML in SYRINGE 25 ML IPL SCH (12:08)
--- NOTE | 2019-04-21 13:04 | Pharmacy Report ---
Pharmacy Glycemic Short Note 2 - Date of Service April 21, 2019 - Glycemic Short BSG Results (Last 24 hours): 04/20/19 04/20/19 04/21/19 16:23 20:34 06:00 Glucose 79 POC Glucose 168 H 289 H 04/21/19 04/21/19 07:03 11:31 Glucose POC Glucose 99 98 OUTPATIENT ANTIDIABETIC REGIMEN: * glipizide 5mg QD * Lantus 75-100 units QD-per patient, dose varies based on BSG * HbA1c: 7.9% ASSESSMENT: Had a concerning FBS AM of 04/20. I subsequently reduced his lantus doses. BSGs since then have been better. He did have some hyperglycemia last night, likely due to missed AM lantus dose. BSGs today are 99, 98. Continue with standing insulin orders. Pt tolerating full liquid diet. PLAN FOR INPATIENT GLYCEMIC CONTROL: * Hold outpatient oral diabetes medications * Basal: * Lantus 20, 30, or 40 units SQ QAM * HS lantus scale: BSGs <200 give 10, >/=200 give 15 * Bolus insulin * NovoLog per scale ACHS * Correction factor 1:15 * Carb ratio: 1:5
--- NOTE | 2019-04-21 15:31 | Hospitalist Progress Note ---
Date of Service April 21, 2019 Assessment & Plan (1) Septic shock: Secondary to empyema and cholangitis management noted below Blood pressure stable (2) Pneumonia: Left-sided empyema Chronic respiratory failure with 2 L nasal cannula. Thoracic surgeon on board Chest x-ray: Persistent right-sided pleural effusion Repeat CT chest: Noted Status post left pleurex catheter insertion April 16, 2019 Repeat pleural fluid culture: ESBL E coli Afebrile, leukocytosis resolved Drainage of left pleural effusion progress Repeat CT chest: Decreased left pleural effusion, persistent right pleural effusion Clinically improving gradually Continue ertapenem IV Thoracic surgery planning to do right-sided thoracentesis Appreciate thoracic surgery service, ID service recommendations (3) Cholecystitis: Chronic cholecystitis, cholangitis, choledocholithiasis Status post ERCP with stone removal and stent placement General surgery on board, plan for eventual cholecystectomy versus cholecystostomy tube placement when patient is medically stable Continue ertapenem IV ID consulted CT abdomen pelvis to follow-up cholangitis/cholecystitis: No abscess or fluid collection noted (4) GI bleeding: Hemoglobin stable after blood transfusion and discontinuation of anticoagulation Hemoglobin stable, 8.5 As per discussion with lucita NUÑEZ to resume anticoagulation including heparin and Coumadin (5) Ischemic cardiomyopathy: Declines defibrillator placement Presently, volume overloaded given Lasix IV plus albumin-- > usual PO diuretics resumed (6) S/P TAVR (transcatheter aortic valve replacement): No chest pain, shortness of breath (7) Diabetes mellitus, type II: On Lantus and insulin sliding scale Blood glucose levels within acceptable range (8) Atrial fibrillation: Continue metoprolol As per discussion with cardiology, will resume anticoagulation with Coumadin plus heparin bridge Discussed with lucita NUÑEZ to resume anticoagulation Coumadin complains of thoracentesis (9) Coronary artery disease: Medical management with aspirin, Lipitor. Losartan on hold in setting of MARISA. (10) Acute kidney injury: Likely secondary to septic shock. Continue IV fluids, avoid nephrotoxic substances. Hold losartan. Kidney function remains stable (11) DVT (deep venous thrombosis): Coumadin plus heparin bridge Full code Disposition Pending We will need PT OT evaluation Subjective Follow-up for ischemic cardiomyopathy, empyema, cholangitis Seen resting in bed, comfortable, not in distress States he feels fine overall No dyspnea, 3 L of nasal cannula No abdominal pain, no nausea vomiting tolerating diet well No other symptoms Physical Exam Physical Exam: General- oriented x 3, not in distress, speaks in sentences with no effort or accessory muscle use Eyes- anicteric Neck- no JVD Lungs-decreased breath sounds right base, Mild rales in the left base Heart- normal rate, regular rhythm; no murmurs Abdomen- normal bowel sounds, nondistended, soft, nontender Extremities-trace pretibial edema, no calf tenderness Neuro- alert, oriented x 3; no gross focal neurologic deficits Skin- warm & dry Results & Data Vital Signs (Past 12 Hours) Vital Signs Temp Pulse Resp BP BP Pulse Ox 04/21/19 10:54 36.8 C 92 H 20 84/45 L 98 04/21/19 07:05 36.7 C 103 H 20 97/54 L 93 04/21/19 04:00 36.6 C 92 H 18 138/63 96
[2019-04-21] MEDS ORDERED: Nursing to Pharmacy Communication ONE (16:58)
[2019-04-21] MEDS: Heparin Adult LOW DOSE Wt-Based Dextrose 5% 25,000 units/500 mL IV SCH (17:13)
[2019-04-21] MEDS: ERTAPENEM SODIUM 1,000 MG in SODIUM CHLORIDE 0.9% 50 ML IV SCH (17:18)
[2019-04-21] MEDS: OXYCODONE HCL IR 5 MG TAB (IMMEDIATE RELEASE) PO PRN (21:08)
[2019-04-21] MEDS: DOCUSATE SODIUM 100 MG CAP PO PRN (21:09)
[2019-04-21] MEDS: ZOLPIDEM TARTRATE 5 MG TAB PO PRN (21:09)
[2019-04-21] MEDS: ATORVASTATIN 40 MG TAB PO SCH (21:11)
[2019-04-21 23:33] LABS: Partial Thromboplastin Ratio 1.8
[2019-04-21 23:39] LABS: Partial Thromboplastin Time 47.8 Seconds (21.0-31.0)
[2019-04-22] MEDS: MoRPHine SULFATE 2 MG/ML CARP IV PRN ×2 (00:12→23:25)
[2019-04-22] MEDS: DORNASE ALFA 5 ML in SYRINGE 25 ML IPL SCH ×3 (00:14→23:26)
[2019-04-22 05:54] LABS: Basophils # (auto) 0.03 K/uL (0-0.2); Basophils % (auto) 0.4 %; Eosinophils # (auto) 0.14 K/uL (0-0.5); Eosinophils % (auto) 1.7 %; Hematocrit (blood only) 29.9 % (42-52); Hemoglobin 9.4 g/dL (14.0-18.0); Immature Granulocytes # (auto) 0.02 K/uL (0.00-0.02); Immature Granulocytes % (auto) 0.2 %; Lymphocytes % (auto) 6.2 %; Mean Corpuscular Hgb Conc 31.4 g/dL (32-36); Mean Corpuscular Volume 87.4 fL (80-100); Mean Platelet Volume 9.8 fL (7.4-10.4); Monocytes # (auto) 0.51 K/uL (0.11-0.59); Monocytes % (auto) 6.3 %; Neutrophils # (auto) 6.89 K/uL (1.4-6.5); Neutrophils % (auto) 85.2 %; Platelet Count 244 K/uL (130-400); RDW Standard Deviation 60.4 fL (36.4-46.3); Red Blood Count 3.42 M/uL (4.7-6.1); White Blood Count 8.09 K/uL (4.8-10.8)
[2019-04-22 06:20] LABS: Albumin Level 1.9 gm/dl (3.4-5.0); BUN Creatinine Ratio 44.1 (10-20); Creatinine Clr Calc Pharmacy 68.2 ml/min; Est GFR (African American) 72.3; Est GFR (Non-African American) 62.3; Potassium 4.4 mmol/L (3.5-5.1)
[2019-04-22 06:31] LABS: INR 1.4 (0.9-1.1); Partial Thromboplastin Ratio 2.1; Prothrombin Time 13.9 Seconds (9.0-12.0)
[2019-04-22 06:34] LABS: Albumin Globulin Ratio 0.4 (0.9-2); Bilirubin,Total 0.9 mg/dl (0.2-1); Globulin 4.8 gm/dl (2.5-4.0); Total Protein 6.7 gm/dl (6.4-8.2)
[2019-04-22 06:47] LABS: Partial Thromboplastin Time 56.1 Seconds (21.0-31.0)
--- NOTE | 2019-04-22 06:57 | XRay Report ---
XR chest 1V portable HISTORY: 74 years-old Male emypema follow-up study in a patient with left-sided empyema COMPARISON: Chest radiograph 04/21/2019 TECHNIQUE: Portable AP view of the chest FINDINGS: Cardiac silhouette is enlarged, unchanged. Prior median sternotomy. Calcified plaque of the thoracic aorta. Drainage catheter noted about the left lung base with persistent left-sided pleural effusion. No definite pneumothorax. Suspected tiny right pleural effusion. Unchanged left midlung and left basi lar opacities. Slightly progressed right basilar densities. Degenerative changes of the shoulders and spine. IMPRESSION: 1. Stable positioning of the left basilar pleural drainage catheter with unchanged size of the left p leural effusion. 2. No pneumothorax. 3. Unchanged left midlung and left basilar opacities with slightly progressed opacities about the rig ht lung base. The above report was generated using voice recognition software. It may contain grammatical, syntax o r spelling errors. Electronically signed by: Dawson Barker M.D. 04/22/2019 6:56 AM
[2019-04-22] MEDS: METOPROLOL TARTRATE 25 MG TAB PO SCH ×2 (07:31→21:20)
[2019-04-22] MEDS: PANTOprazole 40 MG TAB PO SCH (07:31)
[2019-04-22] MEDS: ASPIRIN 81 MG ECTAB PO SCH (07:32)
[2019-04-22] MEDS: GABAPENTIN 100 MG CAP PO SCH ×3 (07:32→21:21)
[2019-04-22] MEDS: SPIRONOLACTONE 25 MG TAB PO SCH (07:33)
[2019-04-22] MEDS: MAGNESIUM OXIDE 400 MG TAB PO SCH (07:33)
[2019-04-22] MEDS: TORSEMIDE 10 MG TAB PO SCH ×2 (07:34→21:20)
[2019-04-22] MEDS: INSULIN GLARGINE SOLOSTAR 100 UNITS/ML 3 ML PEN SC SCH ×2 (07:35→21:23)
[2019-04-22] MEDS: INSULIN ASPART 100 UNITS/ML 3 ML PEN SC SCH ×4 (07:50→21:23)
[2019-04-22] MEDS: OXYCODONE HCL IR 5 MG TAB (IMMEDIATE RELEASE) PO PRN ×2 (11:03→22:50)
--- NOTE | 2019-04-22 11:20 | Progress Note ---
DATE: 04/22/2019 Mr. Bustillo was seen today and states that he feels "pretty good." He has not changed much; however, his oxygen requirement appeared to be going down that he is 99% on 2 liters. He put out very little serous fluid from his PleurX today. We did a thoracentesis on his right side yesterday. His white count today is 8090 which is an improvement and his hemoglobin is stable at 9.4. I was quite pleased with his x-ray that the right side continued to look good. He does have changes laterally, but I think this is pleural thickening on the left. He is actually moving air fairly well without wheezing, although he has decreased breath sounds at the bases. The pleural fluid was drained yesterday, has no organisms on it and it appears to be a transudate. Glucose was also 117 with a pH of 7.53 which argue against it being an empyema. He did have edema of his lower extremities of course. His PleurX site is clean. Cytology from yesterday's fluid shows no evidence of malignancy. ASSESSMENT AND PLAN: Left E. coli pleural empyema. We are going to continue the PleurX catheter for the time being with the dornase. I do not want to give him TPA when he is on heparin as he tends to bleed in his chest. Otherwise, I think I would start getting this man up and moving. I would get him into a chair and have therapy see him about aiding in ambulation or at least moving more.
[2019-04-22] MEDS: DOCUSATE SODIUM/SENNA 50/8.6MG TAB PO SCH (13:07)
[2019-04-22] MEDS: Heparin Adult LOW DOSE Wt-Based Dextrose 5% 25,000 units/500 mL IV SCH (14:10)
[2019-04-22] MEDS: ERTAPENEM SODIUM 1,000 MG in SODIUM CHLORIDE 0.9% 50 ML IV SCH (16:30)
--- NOTE | 2019-04-22 16:33 | Cardiology Progress Note ---
Date of Service April 22, 2019 Assessment & Plan (1) Acute on chronic HFrEF (heart failure with reduced ejection fraction): Known ischemic cardiomyopathy, moderate left ventricular systolic dysfunction. EF 30 to 35%. Stable aortic valve prosthetic indices. Continue outpatient diuretic regimen: Torsemide 40 mg in the AM and 20 mg in the PM along with 25 mg of spironolactone. Follow fluid balance, daily weights, electrolytes, and GFR. Ultimate goal to maintain equal to negative volumes status Low albumin level will make maintaining fluid status difficult. Will need to increase activity Nutrition status is concerning albumin level 1.9. (2) Atrial fibrillation: Chronic atrial fibrillation. Rates acceptable given the current issues Continue metoprolol as prescribed. Watching for signs of bleeding, heparin infusion started transition to warfarin when stable (3) Coronary artery disease: Stable Continue medical management (4) S/P TAVR (transcatheter aortic valve replacement): History of TAVR complicated by prosthetic fracture and then underwent open surgical aortic valve replacement in 2017. Resume aspirin for stroke prophylaxis. Continue knee-high sequential pneumatic compression devices for DVT prophylaxis. Patient is also been found to have choledocholithiasis and laparoscopic cholecystectomy is to be reconsidered in the future after he recovers from his current illness. Subjective Patient feels slightly better today. Patient was seen and examined, chart medications and telemetry all reviewed. Patient feels slightly better today. Less predict discomfort. No dizziness or lightheadedness. Was able to eat full meal for breakfast, no abdominal pain Physical Exam Neck: trachea midline, no thyromegaly Respiratory: Slightly better aeration to the bases Cardiovascular: Rate/Rhythm: + irregularly irregular Heart Sounds: + murmur (Grade 2/6 systolic no diastolic murmur) Extremities: + edema (Minimal); no calf tenderness Gastrointestinal (Abdomen): Percussion/Palpation: abdomen soft; abdomen nontender Psychiatric: Affect: + flat affect Results & Data Vital Signs (Past 12 Hours) Vital Signs Temp Pulse Pulse Pulse Resp BP Pulse Ox 04/22/19 15:31 36.9 C 96 H 20 162/43 H 95 04/22/19 11:01 36.7 C 91 H 18 102/63 100 04/22/19 08:00 96 H 04/22/19 07:12 36.8 C 97 H 22 84/41 L 99
--- NOTE | 2019-04-22 16:34 | Hospitalist Progress Note ---
Date of Service April 22, 2019 Assessment & Plan (1) Septic shock: Secondary to empyema and cholangitis management noted below E. coli empyema Blood pressure remains stable (2) Pneumonia: Left-sided empyema Chronic respiratory failure with 2 L nasal cannula. Continue intravenous ertapenem Very slow improvement Thoracic surgeon on board Chest x-ray: Persistent right-sided pleural effusion Repeat CT chest: Noted Status post left pleurex catheter insertion April 16, 2019 Repeat pleural fluid culture: ESBL E coli Management as per thoracic surgery May need right pleural fluid aspiration (3) Cholecystitis: Chronic cholecystitis, cholangitis, choledocholithiasis Status post ERCP with stone removal and stent placement General surgery on board, plan for eventual cholecystectomy versus cholecystostomy tube placement when patient is medically stable Continue ertapenem IV ID consulted CT abdomen pelvis to follow-up cholangitis/cholecystitis: No abscess or fluid collection noted (4) GI bleeding: Hemoglobin stable after blood transfusion and discontinuation of anticoagulation Hemoglobin stable, 8.5 As per discussion with lucita NUÑEZ to resume anticoagulation including heparin and Coumadin (5) Ischemic cardiomyopathy: Declines defibrillator placement Presently, volume overloaded given Lasix IV plus albumin-- > usual PO diuretics resumed (6) S/P TAVR (transcatheter aortic valve replacement): No chest pain, shortness of breath (7) Diabetes mellitus, type II: On Lantus and insulin sliding scale Blood glucose levels within acceptable range (8) Atrial fibrillation: Continue metoprolol As per discussion with cardiology, will resume anticoagulation with Coumadin plus heparin bridge Discussed with lucita NUÑEZ to resume anticoagulation (9) Coronary artery disease: Medical management with aspirin, Lipitor. Losartan on hold in setting of MARISA. No acute coronary symptoms (10) Acute kidney injury: Likely secondary to septic shock. Continue IV fluids, avoid nephrotoxic substances. Hold losartan. Kidney function remains stable (11) DVT (deep venous thrombosis): Coumadin plus heparin bridge Full code Disposition Pending We will need PT OT evaluation Subjective 04/22 The patient was seen and examined in the telemetry unit He remains very weak and lethargic Denies any pain or shortness of breath at rest His improvement has been very very gradual and slow Review of Systems Review of Systems: All systems reviewed and are unremarkable except as noted below Constitutional: + fatigue, + weakness and + anorexia Respiratory: + dyspnea (With minimal activity); no cough Cardiovascular: + edema (Trace edema bilaterally); no chest pain Gastrointestinal: + abdominal pain and + bloating Musculoskeletal: No acute arthritis in any of the joints Neurologic: + generalized weakness Alert, awake and oriented x3 generally very weak and lethargic Physical Exam Physical Exam: Lying in bed without any acute distress Constitutional: + acute distress (Mild acute distress secondary to abdominal discomfort), + ill appearing, + frail appearing, well groomed, cooperative and comfortable; + not well nourished Eyes: PERRL, conjunctivae normal, anicteric sclerae ENMT: external ear and nose normal, oropharynx normal Neck: trachea midline, no thyromegaly Respiratory: normal respiratory effort and + respiratory distress (Minimal); does not use accessory muscles Auscultation: + diminished lung sounds (Diminished L side ) and + crackles (Minimal crackles at the right base and decreased breath sounds left lower lung) Cardiovascular: Rate/Rhythm: + abnormal rate and + abnormal rhythm Heart Sounds: no murmur Gastrointestinal (Abdomen): Inspection/Auscultation: + abdomen distended Percussion/Palpation: + abdomen tender (Left-sided tenderness) and abdomen soft; no guarding Skin: no rashes, warm and dry no jaundice Neurologic: moves all extremities Motor/Sensory: no asterixis Psychiatric: A+Ox3, euthymic affect Lymphatic: no cervical or axillary lymphadenopathy + lymphedema (trace bilateral LE edema ) Results & Data Vital Signs (Past 12 Hours) Vital Signs Temp Pulse Pulse Pulse Resp BP Pulse Ox 04/22/19 15:31 36.9 C 96 H 20 162/43 H 95 04/22/19 11:01 36.7 C 91 H 18 102/63 100 04/22/19 08:00 96 H 04/22/19 07:12 36.8 C 97 H 22 84/41 L 99 Laboratory Results Short CBC 04/22/19 Range/Units 05:37 WBC 8.09 (4.8-10.8) K/uL Hgb 9.4 L (14.0-18.0) g/dL Hct 29.9 L (42-52) % Plt Count 244 (130-400) K/uL BMP 04/22/19 05:37 Sodium 141 Potassium 4.4 Chloride 104 Carbon Dioxide 33 H BUN 51 H Creatinine 1.15 Glucose 72 Calcium 8.0 L Liver Function 04/22/19 Range/Units 05:37 Total Bilirubin 0.9 (0.2-1) mg/dl AST 66 H (15-37) U/L ALT 43 (12-78) U/L Alkaline Phosphatase 287 H (45-117) U/L Albumin 1.9 L (3.4-5.0) gm/dl Medications Administered Current Inpatient Medications Acetaminophen (Tylenol) 500 mg PO Q4 PRN PRN Reason: Fever Or Pain Stop: 05/05/19 23:15 Last Admin: 04/16/19 18:12 Dose: 500 mg Documented by: Aspirin (Ecotrin Ectab) 81 mg PO QAM [facility] Stop: 05/17/19 08:59 Last Admin: 04/22/19 07:32 Dose: 81 mg Documented by: Atorvastatin Calcium (Lipitor) 40 mg PO HS [facility] Stop: 05/06/19 20:59 Last Admin: 04/21/19 21:11 Dose: 40 mg Documented by: Buspirone HCl (Buspar) 2.5 mg PO TID PRN PRN Reason: Anxiety Stop: 05/06/19 01:42 Last Admin: 04/20/19 09:50 Dose: 2.5 mg Documented by: Dextrose (Dextrose 50%) 25 - 50 ml IV UD PRN; Protocol PRN Reason: Hypoglycemia Protocol Stop: 05/05/19 23:15 Last Admin: 04/08/19 23:57 Dose: 50 ml Documented by: Docusate Sodium (Colace) 100 mg PO BID PRN PRN Reason: Constipation Stop: 05/05/19 23:15 Last Admin: 04/21/19 21:09 Dose: 100 mg Documented by: Gabapentin (Neurontin) 100 mg PO TID [facility] Stop: 05/06/19 08:59 Last Admin: 04/22/19 07:32 Dose: 100 mg Documented by: Glucagon (Glucagen) 1 mg SQ UD PRN; Protocol PRN Reason: Hypoglycemia Protocol Stop: 05/05/19 23:15 Glucose (Glucose 40%) 15 - 30 gm PO UD PRN; Protocol PRN Reason: Hypoglycemia Protocol Stop: 05/05/19 23:15 Glucose (Dex4 Glucose) 4 - 8 tabs PO UD PRN; Protocol PRN Reason: Hypoglycemia Protocol Stop: 05/05/19 23:15 Sodium Chloride (Nss) 250 mls @ 15 mls/hr IV .[id number] PRN PRN Reason: For Transfusion Stop: 05/11/19 10:18 Ertapenem 1,000 mg/ Sodium (Chloride) 60 mls @ 100 mls/hr IV Q24H [facility] Stop: 04/28/19 16:29 Last Infusion: 04/21/19 18:00 Dose: Infused Documented by: Heparin Sodium/Dextrose (Heparin Sodium/Dextrose) 25,000 units in 500 mls @ 23 mls/hr IV .[id number] [facility]; Protocol Stop: 05/19/19 18:44 Last Admin: 04/22/19 14:10 Dose: 1,150 units/hr, 23 mls/hr Documented by: Dornase Harinder 5 ml/ Syringe 30 mls @ 0.0006 mls/min IPL Q12H [facility]; Protocol Stop: 04/24/19 11:14 Last Admin: 04/22/19 12:39 Dose: 0.0006 mls/min Documented by: Insulin Aspart (Novolog Flexpen) 0 units SC ACHS [facility] Stop: 05/10/19 11:29 Last Admin: 04/22/19 13:08 Dose: 17 units Documented by: Insulin Glargine (Lantus Solostar Pen) 0 units SC HS [facility]; Protocol Stop: 05/11/19 20:59 Last Admin: 04/21/19 21:09 Dose: 10 units Documented by: Insulin Glargine (Lantus Solostar Pen) 0 units SC QAM [facility]; Protocol Stop: 05/10/19 08:14 Last Admin: 04/22/19 07:35 Dose: 20 units Documented by: Magnesium Oxide (Mag-Ox) 400 mg PO QAM [facility] Stop: 05/06/19 08:59 Last Admin: 04/22/19 07:33 Dose: 400 mg Documented by: Metoprolol Tartrate (Lopressor) 25 mg PO BID [facility] Stop: 05/09/19 08:59 Last Admin: 04/22/19 07:31 Dose: 25 mg Documented by: Miscellaneous (Carbohydrates For Hypoglycemia) 15 - 30 gm PO UD PRN PRN Reason: Hypoglycemia Treatment Stop: 05/05/19 23:15 Last Admin: 04/20/19 07:26 Dose: 15 gm Documented by: Miscellaneous Information (Consult Glycemic Management Pharmacy) 1 ea N/A UD PRN; Protocol PRN Reason: Consult Stop: 05/05/19 23:47 Morphine Sulfate (Morphine Sulfate) 2 mg IV Q12H PRN PRN Reason: Severe Pain Stop: 05/02/19 17:53 Last Admin: 04/22/19 00:12 Dose: 2 mg Documented by: Oxycodone HCl (Roxicodone Immediate Rel) 5 mg PO Q6H PRN PRN Reason: Pain Stop: 04/30/19 20:09 Last Admin: 04/22/19 11:03 Dose: 5 mg Documented by: Pantoprazole Sodium (Protonix) 40 mg PO QAM [facility] Stop: 05/10/19 08:59 Last Admin: 04/22/19 07:31 Dose: 40 mg Documented by: Polyethylene Glycol (Miralax Powder Packet) 17 gm PO DAILY PRN PRN Reason: Constipation Stop: 05/05/19 23:15 Senna/Docusate [facility] Stop: 05/22/19 08:59 Last Admin: 04/22/19 13:07 Dose: 1 tab Documented by: Sennosides (Senokot) 8.6 mg PO DAILY PRN PRN Reason: Constipation Stop: 05/05/19 23:15 Last Admin: 04/20/19 09:50 Dose: 8.6 mg Documented by: Spironolactone (Aldactone) 25 mg PO QAM [facility] Stop: 05/18/19 12:29 Last Admin: 04/22/19 07:33 Dose: 25 mg Documented by: Torsemide (Demadex) 40 mg PO QAM [facility] Stop: 05/18/19 12:29 Last Admin: 04/22/19 07:34 Dose: 40 mg Documented by: Torsemide (Demadex) 20 mg PO QPM [facility] Stop: 05/18/19 20:59 Last Admin: 04/21/19 21:11 Dose: 20 mg Documented by: Zolpidem Tartrate (Ambien) 5 mg PO HS PRN PRN Reason: Sleep Stop: 05/10/19 18:35 Last Admin: 04/21/19 21:09 Dose: 5 mg Documented by:
[2019-04-22] MEDS: ATORVASTATIN 40 MG TAB PO SCH (21:21)
--- NOTE | 2019-04-22 23:07 | Infectious Disease Progress Nt ---
Date of Service April 22, 2019 Assessment & Plan (1) Empyema, left: 74-year-old male with chronic cholecystitis, cholangitis, choledocholithiasis, and now empyema of the left chest with ESBL producing E. coli. Now status post Pleurx catheter placement, patient slightly improved. Would continue on current antibiotics. Will follow. (2) Cholecystitis, chronic: (3) Infection due to ESBL-producing Escherichia coli: Subjective Patient seen in follow-up for empyema, cholecystitis, and cholangitis. No increase in shortness of breath, no increase in abdominal pain. Remains afebrile. Review of Systems Review of Systems: All systems reviewed & are unremarkable except as noted in HPI & below Physical Exam Constitutional: WD/WN, vitals as above well developed, + ill appearing and comfortable; no acute distress Eyes: PERRL, conjunctivae normal, anicteric sclerae ENMT: external ear and nose normal, oropharynx normal Neck: trachea midline, no thyromegaly neck nontender Respiratory: normal percussion and + dullness to percussion (Left base); no respiratory distress Auscultation: + diminished lung sounds (Left base) and + rhonchi Cardiovascular: Rate/Rhythm: regular rate and regular rhythm Heart Sounds: normal S1 and normal S2; no gallop, no murmur and no cardiac rub Vessels: normal peripheral pulses; no JVD Gastrointestinal (Abdomen): normal bowel sounds, soft, nontender, no hepatosplenomegaly Inspection/Auscultation: abdomen normal to inspection and normal bowel sounds Percussion/Palpation: + abdomen tender (Right upper quadrant); no hepatosplenomegaly and no abdominal mass Musculoskeletal: no cyanosis or clubbing, extremities motor strength 5/5 Spine: thoracic spine normal to inspection and lumbar spine normal to inspection; no cervical spinal tenderness Skin: no rashes, warm and dry normal turgor; no lesions Neurologic: patellar DTR's 2+ bilat, sensation intact moves all extremities and awake; no focal motor deficits Motor/Sensory: no sensory deficit Psychiatric: A+Ox3, euthymic affect Orientation: cooperative Lymphatic: no cervical or axillary lymphadenopathy no inguinal lymphadenopathy Results & Data Vital Signs (Past 12 Hours) Vital Signs Temp Pulse Resp BP Pulse Ox 04/22/19 19:25 36.8 C 92 H 19 100/45 L 100 04/22/19 15:31 36.9 C 96 H 20 162/43 H 95 Laboratory Results Short CBC 04/22/19 Range/Units 05:37 WBC 8.09 (4.8-10.8) K/uL Hgb 9.4 L (14.0-18.0) g/dL Hct 29.9 L (42-52) % Plt Count 244 (130-400) K/uL BMP 04/22/19 05:37 Sodium 141 Potassium 4.4 Chloride 104 Carbon Dioxide 33 H BUN 51 H Creatinine 1.15 Glucose 72 Calcium 8.0 L Liver Function 04/22/19 Range/Units 05:37 Total Bilirubin 0.9 (0.2-1) mg/dl AST 66 H (15-37) U/L ALT 43 (12-78) U/L Alkaline Phosphatase 287 H (45-117) U/L Albumin 1.9 L (3.4-5.0) gm/dl Diagnostic Findings Microbiology 04/21/19 08:50 Pleural Fluid Gram Stain - Final 04/21/19 08:50 Pleural Fluid Aerobic and Anaerobic Culture - Preliminary No growth to date. 04/21/19 08:50 Pleural Fluid Acid Fast Bacilli Smear - Final 04/16/19 20:57 Blood Aerobic Blood Culture - Final No growth in Aerobic bottle after 5 days. 04/16/19 20:57 Blood Anaerobic Blood Culture - Final No growth in Anaerobic bottle after 5 days. 04/16/19 21:01 Blood Aerobic Blood Culture - Final No growth in Aerobic bottle after 5 days. 04/16/19 21:01 Blood Anaerobic Blood Culture - Final No growth in Anaerobic bottle after 5 days. 04/21/19 08:50 Pleural Fluid Fungal Smear - Final 04/16/19 Unknown Pleural Fluid Gram Stain - Final 04/16/19 Unknown Pleural Fluid Aerobic and Anaerobic Culture - Final Escherichia coli ESBL 04/16/19 Unknown Pleural Fluid Acid Fast Bacilli Smear - Final 04/16/19 Unknown Pleural Fluid Acid Fast Bacilli Culture - Preliminary No Acid-Fast Bacilli Isolated - Report 1, Additional Report to Follow. 04/16/19 Unknown Pleural Fluid Fungal Smear - Final 04/16/19 Unknown Pleural Fluid Fungal Culture - Preliminary No yeast or fungus isolated - Report 1, Addit ional Report to Follow. 04/06/19 13:30 Pleural Fluid Acid Fast Bacilli Smear - Final 04/06/19 13:30 Pleural Fluid Acid Fast Bacilli Culture - Preliminary No Acid-Fast Bacilli Isolated - Report 2, Additional Report to Follow. 04/12/19 13:57 Urine,Clean Catch Urine Culture - Final No growth - less than 1,000 colonies/mL. 04/08/19 08:28 Blood Aerobic Blood Culture - Final No growth in Aerobic bottle after 5 days. 04/08/19 08:28 Blood Anaerobic Blood Culture - Final No growth in Anaerobic bottle after 5 days. 04/08/19 08:38 Blood Aerobic Blood Culture - Final No growth in Aerobic bottle after 5 days. 04/08/19 08:38 Blood Anaerobic Blood Culture - Final No growth in Anaerobic bottle after 5 days. 04/07/19 08:33 Blood Aerobic Blood Culture - Final No growth in Aerobic bottle after 5 days. 04/07/19 08:33 Blood Anaerobic Blood Culture - Final No growth in Anaerobic bottle after 5 days. 04/07/19 08:44 Blood Aerobic Blood Culture - Final No growth in Aerobic bottle after 5 days. 04/07/19 08:44 Blood Anaerobic Blood Culture - Final No growth in Anaerobic bottle after 5 days. 04/05/19 20:47 Blood Aerobic Blood Culture - Final No growth in Aerobic bottle after 5 days. 04/05/19 20:47 Blood Anaerobic Blood Culture - Final Coag neg staph not lugdunensis 04/06/19 13:30 Pleural Fluid Gram Stain - Final 04/06/19 13:30 Pleural Fluid Aerobic and Anaerobic Culture - Final Escherichia coli ESBL 04/05/19 20:47 Blood Aerobic Blood Culture - Final No growth in Aerobic bottle after 5 days. 04/05/19 20:47 Blood Anaerobic Blood Culture - Final No growth in Anaerobic bottle after 5 days.
[2019-04-23 06:18] LABS: Basophils # (auto) 0.07 K/uL (0-0.2); Basophils % (auto) 0.8 %; Eosinophils # (auto) 0.17 K/uL (0-0.5); Hematocrit (blood only) 29.3 % (42-52); Hemoglobin 9.1 g/dL (14.0-18.0); Immature Granulocytes # (auto) 0.03 K/uL (0.00-0.02); Immature Granulocytes % (auto) 0.4 %; Lymphocytes # (auto) 0.56 K/uL (1.2-3.4); Lymphocytes % (auto) 6.7 %; Mean Corpuscular Hgb Conc 31.1 g/dL (32-36); Mean Corpuscular Volume 86.9 fL (80-100); Mean Platelet Volume 10.1 fL (7.4-10.4); Monocytes # (auto) 0.46 K/uL (0.11-0.59); Monocytes % (auto) 5.5 %; Neutrophils # (auto) 7.09 K/uL (1.4-6.5); Neutrophils % (auto) 84.6 %; Platelet Count 238 K/uL (130-400); RDW Coefficient of Variation 18.9 % (11.5-14.5); RDW Standard Deviation 59.8 fL (36.4-46.3); Red Blood Count 3.37 M/uL (4.7-6.1); White Blood Count 8.38 K/uL (4.8-10.8)
[2019-04-23 06:39] LABS: INR 1.3 (0.9-1.1); Partial Thromboplastin Ratio 1.8; Prothrombin Time 13.4 Seconds (9.0-12.0)
[2019-04-23 06:42] LABS: Partial Thromboplastin Time 49.7 Seconds (21.0-31.0)
[2019-04-23 06:56] LABS: BUN Creatinine Ratio 42.3 (10-20); Creatinine Clr Calc Pharmacy 68.5 ml/min; Est GFR (African American) 73.8; Est GFR (Non-African American) 63.7; Magnesium 2.2 mg/dl (1.8-2.4); Phosphorus 3.2 mg/dl (2.5-4.9); Potassium 4.4 mmol/L (3.5-5.1)
--- NOTE | 2019-04-23 07:16 | XRay Report ---
XR chest 1V portable CLINICAL HISTORY: empyema COMPARISON STUDY: 07/23/2019 FINDINGS: The heart is enlarged. There are postsurgical changes of midline sternotomy. There is radio graphic evidence of mild pulmonary vascular congestion. There is no change in the position of the lef t-sided chest tube. There is persistent left-sided pleural thickening/fluid. There are persistent lef t basilar airspace opacities.[ IMPRESSION: 1. Stable findings 2. Persistent left basilar chest tube with left pleural fluid/thickening and associated left lower lo be atelectasis/consolidation 3. Underlying mild congestive failure/fluid overload is suspected. Electronically signed by: Travon Sim M.D. 04/23/2019 7:15 AM
[2019-04-23] MEDS: INSULIN ASPART 100 UNITS/ML 3 ML PEN SC SCH ×4 (07:51→20:27)
[2019-04-23] MEDS: ASPIRIN 81 MG ECTAB PO SCH (08:01)
[2019-04-23] MEDS: GABAPENTIN 100 MG CAP PO SCH ×3 (08:01→20:27)
[2019-04-23] MEDS: MAGNESIUM OXIDE 400 MG TAB PO SCH (08:01)
[2019-04-23] MEDS: INSULIN GLARGINE SOLOSTAR 100 UNITS/ML 3 ML PEN SC SCH ×2 (08:01→20:25)
[2019-04-23] MEDS: PANTOprazole 40 MG TAB PO SCH (08:02)
[2019-04-23] MEDS: DOCUSATE SODIUM/SENNA 50/8.6MG TAB PO SCH (08:02)
[2019-04-23] MEDS: TORSEMIDE 10 MG TAB PO SCH ×2 (08:02→20:23)
[2019-04-23] MEDS: SPIRONOLACTONE 25 MG TAB PO SCH (08:02)
[2019-04-23] MEDS: METOPROLOL TARTRATE 25 MG TAB PO SCH ×2 (08:02→20:25)
--- NOTE | 2019-04-23 10:47 | Cardiology Progress Note ---
Date of Service April 23, 2019 Assessment & Plan (1) Acute on chronic HFrEF (heart failure with reduced ejection fraction): Known ischemic cardiomyopathy, moderate left ventricular systolic dysfunction. EF 30 to 35%. Stable aortic valve prosthetic indices. Continue outpatient diuretic regimen: Torsemide 40 mg in the AM and 20 mg in the PM along with 25 mg of spironolactone. Follow fluid balance, daily weights, electrolytes, and GFR. Ultimate goal to maintain equal to negative volumes status Low albumin level will make maintaining fluid status difficult. Will need to increase activity Continue nutritional support Consider removing indwelling Chandler Diuretic dose appears to be appropriate with slightly negative I's/O's stable renal function (2) Atrial fibrillation: Chronic atrial fibrillation. Rates acceptable given the current issues Continue metoprolol as prescribed. Watching for signs of bleeding, heparin infusion started transition to warfarin when stable (3) Coronary artery disease: Stable Continue medical management (4) S/P TAVR (transcatheter aortic valve replacement): History of TAVR complicated by prosthetic fracture and then underwent open surgical aortic valve replacement in 2017. Resume aspirin for stroke prophylaxis. Continue knee-high sequential pneumatic compression devices for DVT prophylaxis. Patient is also been found to have choledocholithiasis and laparoscopic cholecystectomy is to be reconsidered in the future after he recovers from his current illness. Subjective Patient seen and examined, chart medications telemetry reviewed. As tolerated activity slightly greater than recent past. Out of bed to chair yesterday. Now taking oral diet. Physical Exam Neck: trachea midline, no thyromegaly Respiratory: Diminished breath sounds at the bases Cardiovascular: Rate/Rhythm: + irregularly irregular Heart Sounds: + murmur (Grade 2/6 systolic no diastolic murmur) Extremities: + edema (Minimal); no calf tenderness Gastrointestinal (Abdomen): Percussion/Palpation: abdomen soft; abdomen nontender Psychiatric: Affect: + flat affect Results & Data Vital Signs (Past 12 Hours) Vital Signs Temp Pulse Pulse Pulse Pulse Resp BP 04/23/19 07:03 36.7 C 87 20 114/74 04/23/19 04:00 37.2 C 95 H 18 134/57 L 04/23/19 00:00 37.5 C 92 H 18 04/22/19 23:21 95 H BP Pulse Ox 04/23/19 07:03 99 04/23/19 04:00 91 04/23/19 00:00 115/72 92 04/22/19 23:21 Laboratory Results Laboratory Results - last 24 hr 04/22/19 04/22/19 04/22/19 11:28 15:54 20:03 WBC RBC Hgb Hct MCV MCH MCHC RDW Std Deviation RDW Coeff of Abi Plt Count MPV Immature Gran % (Auto) Neut % (Auto) Lymph % (Auto) Eagle % (Auto) Eos % (Auto) Baso % (Auto) Immature Gran # (Auto) Neut # (Auto) Lymph # (Auto) Eagle # (Auto) Eos # (Auto) Baso # (Auto) PT INR APTT PTT Ratio Sodium Potassium Chloride Carbon Dioxide Anion Gap BUN Creatinine Est Cr Clr Drug Dosing Est GFR ( Amer) Est GFR (Non-Af Amer) BUN/Creatinine Ratio Glucose POC Glucose 114 H 118 H 187 H Calcium Phosphorus Magnesium 04/23/19 04/23/19 04/23/19 05:53 05:53 05:53 WBC 8.38 RBC 3.37 L Hgb 9.1 L Hct 29.3 L MCV 86.9 MCH 27.0 MCHC 31.1 L RDW Std Deviation 59.8 H RDW Coeff of Abi 18.9 H Plt Count 238 MPV 10.1 Immature Gran % (Auto) 0.4 Neut % (Auto) 84.6 Lymph % (Auto) 6.7 Eagle % (Auto) 5.5 Eos % (Auto) 2.0 Baso % (Auto) 0.8 Immature Gran # (Auto) 0.03 H Neut # (Auto) 7.09 H Lymph # (Auto) 0.56 L Eagle # (Auto) 0.46 Eos # (Auto) 0.17 Baso # (Auto) 0.07 PT 13.4 H INR 1.3 H APTT 49.7 H* PTT Ratio 1.8 Sodium 137 Potassium 4.4 Chloride 102 Carbon Dioxide 30 Anion Gap 5.0 BUN 48 H Creatinine 1.13 Est Cr Clr Drug Dosing 68.5 Est GFR ( Amer) 73.8 Est GFR (Non-Af Amer) 63.7 BUN/Creatinine Ratio 42.3 H Glucose 117 H POC Glucose Calcium 8.0 L Phosphorus 3.2 Magnesium 2.2 04/23/19 07:00 WBC RBC Hgb Hct MCV MCH MCHC RDW Std Deviation RDW Coeff of Abi Plt Count MPV Immature Gran % (Auto) Neut % (Auto) Lymph % (Auto) Eagle % (Auto) Eos % (Auto) Baso % (Auto) Immature Gran # (Auto) Neut # (Auto) Lymph # (Auto) Eagle # (Auto) Eos # (Auto) Baso # (Auto) PT INR APTT PTT Ratio Sodium Potassium Chloride Carbon Dioxide Anion Gap BUN Creatinine Est Cr Clr Drug Dosing Est GFR ( Amer) Est GFR (Non-Af Amer) BUN/Creatinine Ratio Glucose POC Glucose 135 H Calcium Phosphorus Magnesium
[2019-04-23] MEDS: Heparin Adult LOW DOSE Wt-Based Dextrose 5% 25,000 units/500 mL IV SCH (11:55)
[2019-04-23] MEDS: DORNASE ALFA 5 ML in SYRINGE 25 ML IPL SCH ×2 (12:45→23:27)
--- NOTE | 2019-04-23 14:29 | Progress Note ---
DATE: 04/23/2019 Mr. Bustillo was seen today. He looks better. His saturations are 99% on 2 liters. He appeared to have less edema to me. I would get physical therapy to get him up moving. I have to say I do think he looks better. I am not sure that he actually needs to be monitored anymore. I would move him to a regular room and get physical therapy to work with him. MTDD
[2019-04-23] MEDS: ERTAPENEM SODIUM 1,000 MG in SODIUM CHLORIDE 0.9% 50 ML IV SCH (17:34)
--- NOTE | 2019-04-23 18:42 | Hospitalist Progress Note ---
Date of Service April 23, 2019 Assessment & Plan (1) Pneumonia: Likely has left pleural effusion with empyema Thoracic surgery has been consulted-thoracotomy and tube placement has been on hold now Status post left thoracotomy tube placement Management as per thoracic surgeon Has been on on Ertapenem IV Appreciate ID input and recommendation (2) GI bleeding: Has been having GI bleed with melena and bloody stool at times Status post EGD-mild duodenitis but no evidence of active bleeding anywhere Status post ERCP-choledocholithiasis, extraction of stones and pus, stent placement and pancreatic duct No NSAID use and or aspirin for 5 days after the procedure - Hg stable no signs of active GI bleeding Heparin has been restarted (3) Atrial fibrillation: anticoagulation held due to GI bleeding No more GI bleeding Has been back on heparin (4) Cholecystitis: CT of the abdomen did show cholelithiasis and acute cholecystitis MRI scan supported cholecystitis ERCP shows cholangitis with cholecystitis - no abdominal pain continue Ertapenem IV Appreciate surgery input and recommendation Likely cholecystectomy as an outpatient when medically stable (5) Septic shock: Septic shock secondary to community acquired pneumonia, cholangitis resolved but has been getting intravenous ertapenem for E. coli in empyema (6) S/P TAVR (transcatheter aortic valve replacement): no cardiac symptoms (7) Diabetes mellitus, type II: off Insulin drip and is being continued on basal/bolus therapy (8) Coronary artery disease: Medical management with aspirin, Lipitor. Losartan on hold in setting of MARISA. No acute coronary symptoms (9) Ischemic cardiomyopathy: As above. Patient is declining defibrillator placement [employer] on board (10) Acute kidney injury: Likely secondary to septic shock. crea stable (11) DVT (deep venous thrombosis): Anticoagulation is on hold due to GI bleed which required 2 unit of blood transfusion Started on intravenous heparin Poor nutrition secondary to multiple comorbid conditions Dietary consult-has been getting boost Increase ambulation Will likely avoid intravenous nutrition for now Full code Subjective 04/22 The patient was seen and examined in the telemetry unit He remains very weak and lethargic Denies any pain or shortness of breath at rest His improvement has been very very gradual and slow 04/23 Patient was seen and examined in telemetry unit He has been looking a bit better today Complains of profound weakness and decreased appetite Denies any acute symptoms Review of Systems Review of Systems: All systems reviewed and are unremarkable except as noted below Constitutional: + fatigue, + weakness and + anorexia Respiratory: + dyspnea (With minimal activity); no cough Cardiovascular: + edema (Trace edema bilaterally); no chest pain Gastrointestinal: + abdominal pain and + bloating Musculoskeletal: No acute arthritis in any of the joints Neurologic: + generalized weakness Alert, awake and oriented x3 generally very weak and lethargic Physical Exam Physical Exam: Sitting on a chair without any acute symptoms Constitutional: + ill appearing, + frail appearing, well groomed, cooperative and comfortable; + not well nourished Eyes: PERRL, conjunctivae normal, anicteric sclerae ENMT: external ear and nose normal, oropharynx normal Neck: trachea midline, no thyromegaly Respiratory: normal respiratory effort and + respiratory distress (Minimal); does not use accessory muscles Auscultation: + diminished lung sounds (Diminished L side ) and + crackles (Minimal crackles at the right base and decreased breath sounds left lower lung) Cardiovascular: Rate/Rhythm: + abnormal rate and + abnormal rhythm Heart Sounds: no murmur Gastrointestinal (Abdomen): Inspection/Auscultation: + abdomen distended Percussion/Palpation: + abdomen tender (Left-sided tenderness) and abdomen soft; no guarding Musculoskeletal: No acute arthritis Skin: no rashes, warm and dry no jaundice Neurologic: moves all extremities Motor/Sensory: no asterixis Generally very weak and lethargy Psychiatric: A+Ox3, euthymic affect Lymphatic: no cervical or axillary lymphadenopathy + lymphedema (trace bilateral LE edema ) Results & Data Vital Signs (Past 12 Hours) Vital Signs Temp Pulse Pulse Resp BP BP Pulse Ox 04/23/19 15:44 36.6 C 92 H 21 72/43 L 95 04/23/19 11:48 36.7 C 78 20 111/74 95 04/23/19 11:45 98/68 L 04/23/19 11:12 36.7 C 89 22 71/40 L 100 04/23/19 07:03 36.7 C 87 20 114/74 99 Laboratory Results Short CBC 04/23/19 Range/Units 05:53 WBC 8.38 (4.8-10.8) K/uL Hgb 9.1 L (14.0-18.0) g/dL Hct 29.3 L (42-52) % Plt Count 238 (130-400) K/uL [facility] 04/23/19 05:53 Sodium 137 Potassium 4.4 Chloride 102 Carbon Dioxide 30 BUN 48 H Creatinine 1.13 Glucose 117 H Calcium 8.0 L Medications Administered Current Inpatient Medications Acetaminophen (Tylenol) 500 mg PO Q4 PRN PRN Reason: Fever Or Pain Stop: 05/05/19 23:15 Last Admin: 04/16/19 18:12 Dose: 500 mg Documented by: Aspirin (Ecotrin Ectab) 81 mg PO QAM [facility] Stop: 05/17/19 08:59 Last Admin: 04/23/19 08:01 Dose: 81 mg Documented by: Atorvastatin Calcium (Lipitor) 40 mg PO HS [facility] Stop: 05/06/19 20:59 Last Admin: 04/22/19 21:21 Dose: 40 mg Documented by: Buspirone HCl (Buspar) 2.5 mg PO TID PRN PRN Reason: Anxiety Stop: 05/06/19 01:42 Last Admin: 04/20/19 09:50 Dose: 2.5 mg Documented by: Dextrose (Dextrose 50%) 25 - 50 ml IV UD PRN; Protocol PRN Reason: Hypoglycemia Protocol Stop: 05/05/19 23:15 Last Admin: 04/08/19 23:57 Dose: 50 ml Documented by: Docusate Sodium (Colace) 100 mg PO BID PRN PRN Reason: Constipation Stop: 05/05/19 23:15 Last Admin: 04/21/19 21:09 Dose: 100 mg Documented by: Gabapentin (Neurontin) 100 mg PO TID [facility] Stop: 05/06/19 08:59 Last Admin: 04/23/19 14:30 Dose: 100 mg Documented by: Glucagon (Glucagen) 1 mg SQ UD PRN; Protocol PRN Reason: Hypoglycemia Protocol Stop: 05/05/19 23:15 Glucose (Glucose 40%) 15 - 30 gm PO UD PRN; Protocol PRN Reason: Hypoglycemia Protocol Stop: 05/05/19 23:15 Glucose (Dex4 Glucose) 4 - 8 tabs PO UD PRN; Protocol PRN Reason: Hypoglycemia Protocol Stop: 05/05/19 23:15 Sodium Chloride (Nss) 250 mls @ 15 mls/hr IV .[id number] PRN PRN Reason: For Transfusion Stop: 05/11/19 10:18 Ertapenem 1,000 mg/ Sodium (Chloride) 60 mls @ 100 mls/hr IV Q24H [facility] Stop: 04/28/19 16:29 Last Infusion: 04/23/19 18:20 Dose: Infused Documented by: Heparin Sodium/Dextrose (Heparin Sodium/Dextrose) 25,000 units in 500 mls @ 23 mls/hr IV .[id number] [facility]; Protocol Stop: 05/19/19 18:44 Last Admin: 04/23/19 11:55 Dose: 1,150 units/hr, 23 mls/hr Documented by: Dornase Harinder 5 ml/ Syringe 30 mls @ 0.0006 mls/min IPL Q12H [facility]; Protocol Stop: 04/24/19 11:14 Last Admin: 04/23/19 12:45 Dose: 0.0006 mls/min Documented by: Insulin Aspart (Novolog Flexpen) 0 units SC ACHS [facility] Stop: 05/10/19 11:29 Last Admin: 04/23/19 17:27 Dose: 11 units Documented by: Insulin Glargine (Lantus Solostar Pen) 0 units SC [facility]; Protocol Stop: 05/11/19 20:59 Last Admin: 04/22/19 21:23 Dose: 10 units Documented by: Insulin Glargine (Lantus Solostar Pen) [address] [facility]; Protocol Stop: 05/10/19 08:14 Last Admin: 04/23/19 08:01 Dose: 20 units Documented by: [facility] (Mag-Ox) [facility] Stop: 05/06/19 08:59 Last Admin: 04/23/19 08:01 Dose: 400 mg Documented by: Metoprolol Tartrate (Lopressor) 25 mg PO BID [facility] Stop: 05/09/19 08:59 Last Admin: 04/23/19 08:02 Dose: 25 mg Documented by: Miscellaneous (Carbohydrates For Hypoglycemia) 15 - 30 gm PO UD PRN PRN Reason: Hypoglycemia Treatment Stop: 05/05/19 23:15 Last Admin: 04/20/19 07:26 Dose: 15 gm Documented by: Miscellaneous Information (Consult Glycemic Management Pharmacy) 1 ea N/A UD PRN; Protocol PRN Reason: Consult Stop: 05/05/19 23:47 Morphine Sulfate (Morphine Sulfate) 2 mg IV Q12H PRN PRN Reason: Severe Pain Stop: 05/02/19 17:53 Last Admin: 04/22/19 23:25 Dose: 2 mg Documented by: Oxycodone HCl (Roxicodone Immediate Rel) 5 mg PO Q6H PRN PRN Reason: Pain Stop: 04/30/19 20:09 Last Admin: 04/22/19 22:50 Dose: 5 mg Documented by: Pantoprazole Sodium (Protonix) 40 mg PO QAM [facility] Stop: 05/10/19 08:59 Last Admin: 04/23/19 08:02 Dose: 40 mg Documented by: Polyethylene Glycol (Miralax Powder Packet) 17 gm PO DAILY PRN PRN Reason: Constipation Stop: 05/05/19 23:15 Senna/Docusate Sodium (Senokot S) 1 [facility] Stop: 05/22/19 08:59 Last Admin: 04/23/19 08:02 Dose: 1 tab Documented by: Sennosides (Senokot) 8.6 mg PO DAILY PRN PRN Reason: Constipation Stop: 05/05/19 23:15 Last Admin: 04/20/19 09:50 Dose: 8.6 mg Documented by: Spironolactone (Aldactone) 25 mg PO QAM [facility] Stop: 05/18/19 12:29 Last Admin: 04/23/19 08:02 Dose: 25 mg Documented by: Torsemide (Demadex) 40 mg PO QAM [facility] Stop: 05/18/19 12:29 Last Admin: 04/23/19 08:02 Dose: 40 mg Documented by: Torsemide (Demadex) 20 mg PO QPM [facility] Stop: 05/18/19 20:59 Last Admin: 04/22/19 21:20 Dose: 20 mg Documented by: Zolpidem Tartrate (Ambien) 5 mg PO HS PRN PRN Reason: Sleep Stop: 05/10/19 18:35 Last Admin: 04/21/19 21:09 Dose: 5 mg Documented by:
[2019-04-23] MEDS: ATORVASTATIN 40 MG TAB PO SCH (20:49)
[2019-04-23] MEDS: MoRPHine SULFATE 2 MG/ML CARP IV PRN (23:27)
[2019-04-24 06:07] LABS: Basophils # (auto) 0.05 K/uL (0-0.2); Basophils % (auto) 0.6 %; Eosinophils # (auto) 0.21 K/uL (0-0.5); Eosinophils % (auto) 2.7 %; Hematocrit (blood only) 28.6 % (42-52); Hemoglobin 8.8 g/dL (14.0-18.0); Immature Granulocytes # (auto) 0.03 K/uL (0.00-0.02); Immature Granulocytes % (auto) 0.4 %; Lymphocytes # (auto) 0.57 K/uL (1.2-3.4); Lymphocytes % (auto) 7.2 %; Mean Corpuscular Hgb Conc 30.8 g/dL (32-36); Mean Corpuscular Volume 88.3 fL (80-100); Monocytes # (auto) 0.62 K/uL (0.11-0.59); Monocytes % (auto) 7.8 %; Neutrophils # (auto) 6.43 K/uL (1.4-6.5); Neutrophils % (auto) 81.3 %; Platelet Count 215 K/uL (130-400); RDW Coefficient of Variation 18.9 % (11.5-14.5); RDW Standard Deviation 60.1 fL (36.4-46.3); Red Blood Count 3.24 M/uL (4.7-6.1); White Blood Count 7.91 K/uL (4.8-10.8)
[2019-04-24 06:08] LABS: Albumin Level 1.9 gm/dl (3.4-5.0); BUN Creatinine Ratio 46.1 (10-20); Calcium 7.9 mg/dl (8.5-10.1); Est GFR (African American) 72.3; Est GFR (Non-African American) 62.3; Magnesium 2.2 mg/dl (1.8-2.4); Potassium 4.4 mmol/L (3.5-5.1)
[2019-04-24 06:11] LABS: Albumin Globulin Ratio 0.4 (0.9-2); Bilirubin,Total 0.9 mg/dl (0.2-1); Globulin 4.7 gm/dl (2.5-4.0); Phosphorus 3.2 mg/dl (2.5-4.9); Total Protein 6.6 gm/dl (6.4-8.2)
[2019-04-24 06:20] LABS: INR 1.3 (0.9-1.1); Partial Thromboplastin Ratio 1.8; Prothrombin Time 12.7 Seconds (9.0-12.0)
[2019-04-24 06:26] LABS: Partial Thromboplastin Time 49.6 Seconds (21.0-31.0)
[2019-04-24] MEDS: INSULIN ASPART 100 UNITS/ML 3 ML PEN SC SCH ×4 (07:51→21:02)
[2019-04-24] MEDS ORDERED: SODIUM CHLORIDE 0.9% 1000ML 250 ML IV ONE (08:07)
--- NOTE | 2019-04-24 08:13 | XRay Report ---
XR chest 1V portable CLINICAL HISTORY: empyema COMPARISON STUDY: 04/23/2019 FINDINGS: There are postsurgical changes of a midline sternotomy. There is a left-sided pleural drain age catheter. There is persistent left-sided pleural thickening/fluid. There are persistent left basi lar airspace opacities. There is diffuse elevation of interstitium, findings slightly improved compar ed the prior study.[ IMPRESSION: 1. No change in the position of the left-sided pleural drainage catheter. 2. Persistent left pleural fluid/thickening with left basilar atelectasis/consolidation 3. Persistent but improving mild pulmonary vascular congestion Electronically signed by: Travon Sim M.D. 04/24/2019 8:11 AM
[2019-04-24] MEDS: TORSEMIDE 10 MG TAB PO SCH (08:50)
[2019-04-24] MEDS: METOPROLOL TARTRATE 25 MG TAB PO SCH ×2 (08:55→21:02)
[2019-04-24] MEDS: MAGNESIUM OXIDE 400 MG TAB PO SCH (08:56)
[2019-04-24] MEDS: GABAPENTIN 100 MG CAP PO SCH ×3 (08:56→21:02)
[2019-04-24] MEDS: PANTOprazole 40 MG TAB PO SCH (08:57)
[2019-04-24] MEDS: DOCUSATE SODIUM/SENNA 50/8.6MG TAB PO SCH (08:58)
[2019-04-24] MEDS: SPIRONOLACTONE 25 MG TAB PO SCH (08:59)
[2019-04-24] MEDS: ASPIRIN 81 MG ECTAB PO SCH (09:00)
[2019-04-24] MEDS: INSULIN GLARGINE SOLOSTAR 100 UNITS/ML 3 ML PEN SC SCH ×3 (09:05→21:01)
--- NOTE | 2019-04-24 09:43 | Cardiology Progress Note ---
Date of Service April 24, 2019 Assessment & Plan (1) Acute on chronic HFrEF (heart failure with reduced ejection fraction): Known ischemic cardiomyopathy, moderate left ventricular systolic dysfunction. EF 30 to 35%. Stable aortic valve prosthetic indices. Outpatient diuretic regimen: Torsemide 40 mg in the AM and 20 mg in the PM along with 25 mg of spironolactone. Given low blood pressures we will hold torsemide today (2) Atrial fibrillation: Chronic atrial fibrillation. Rates acceptable given the current issues Continue metoprolol as prescribed. Watching for signs of bleeding, heparin infusion started transition to warfarin when stable (3) Coronary artery disease: Stable Continue medical management (4) S/P TAVR (transcatheter aortic valve replacement): History of TAVR complicated by prosthetic fracture and then underwent open surgical aortic valve replacement in 2017. Resume aspirin for stroke prophylaxis. Continue knee-high sequential pneumatic compression devices for DVT prophylaxis. Patient is also been found to have choledocholithiasis and laparoscopic cholecystectomy is to be reconsidered in the future after he recovers from his current illness. Subjective Patient seen and examined, chart medications telemetry reviewed. No complaints. Slightly stronger today. Blood pressure however been trending lower this morning. No fevers or chills no edema Appetite has improved with better p.o. intake Physical Exam Neck: trachea midline, no thyromegaly Cardiovascular: Rate/Rhythm: + irregularly irregular Heart Sounds: + murmur (Grade 2/6 systolic no diastolic murmur) Extremities: + edema (Minimal); no calf tenderness Gastrointestinal (Abdomen): Percussion/Palpation: abdomen soft; abdomen nontender Psychiatric: Affect: + flat affect Results & Data Vital Signs (Past 12 Hours) Vital Signs Temp Pulse Pulse Resp BP BP Pulse Ox 04/24/19 08:50 78/52 L 04/24/19 07:40 89 04/24/19 07:27 72/48 L 04/24/19 07:09 36.6 C 92 H 20 78/35 L 100 04/24/19 03:25 36.7 C 84 16 114/61 99 04/24/19 00:15 36.4 C L 89 19 90/61 L 100 Laboratory Results Laboratory Results - last 24 hr 04/21/19 04/23/19 04/23/19 08:50 11:07 16:26 WBC RBC Hgb Hct MCV MCH MCHC RDW Std Deviation RDW Coeff of Abi Plt Count MPV Immature Gran % (Auto) Neut % (Auto) Lymph % (Auto) [place] % (Auto) Eos % (Auto) Baso % (Auto) Immature Gran # (Auto) Neut # (Auto) Lymph # (Auto) [place] # (Auto) Eos # (Auto) Baso # (Auto) PT INR APTT PTT Ratio Sodium Potassium Chloride Carbon Dioxide Anion Gap BUN Creatinine Est Cr Clr Drug Dosing Est GFR ( Amer) Est GFR (Non-Af Amer) BUN/Creatinine Ratio Glucose POC Glucose 204 H 118 H Calcium Phosphorus Magnesium Total Bilirubin AST ALT Alkaline Phosphatase Total Protein Albumin Globulin Albumin/Globulin Ratio Pleural Cholesterol 16 04/23/19 04/24/19 04/24/19 20:04 05:20 05:20 WBC 7.91 RBC 3.24 L Hgb 8.8 L Hct 28.6 L MCV 88.3 MCH 27.2 MCHC 30.8 L RDW Std Deviation 60.1 H RDW Coeff of Abi 18.9 H Plt Count 215 MPV 10.0 Immature Gran % (Auto) 0.4 Neut % (Auto) 81.3 Lymph % (Auto) 7.2 [place] % (Auto) 7.8 Eos % (Auto) 2.7 Baso % (Auto) 0.6 Immature Gran # (Auto) 0.03 H Neut # (Auto) 6.43 Lymph # (Auto) 0.57 L [place] # (Auto) 0.62 H Eos # (Auto) 0.21 Baso # (Auto) 0.05 PT 12.7 H INR 1.3 H APTT 49.6 H* PTT Ratio 1.8 Sodium Potassium Chloride Carbon Dioxide Anion Gap BUN Creatinine Est Cr Clr Drug Dosing Est GFR ( Amer) Est GFR (Non-Af Amer) BUN/Creatinine Ratio Glucose POC Glucose 203 H Calcium Phosphorus Magnesium Total Bilirubin AST ALT Alkaline Phosphatase Total Protein Albumin Globulin Albumin/Globulin Ratio Pleural Cholesterol 04/24/19 04/24/19 05:20 07:08 WBC RBC Hgb Hct MCV MCH MCHC RDW Std Deviation RDW Coeff of Abi Plt Count MPV Immature Gran % (Auto) Neut % (Auto) Lymph % (Auto) [place] % (Auto) Eos % (Auto) Baso % (Auto) Immature Gran # (Auto) Neut # (Auto) Lymph # (Auto) [place] # (Auto) Eos # (Auto) Baso # (Auto) PT INR APTT PTT Ratio Sodium 138 Potassium 4.4 Chloride 101 Carbon Dioxide 32 Anion Gap 5.0 BUN 53 H Creatinine 1.15 Est Cr Clr Drug Dosing 67.0 Est GFR ( Amer) 72.3 Est GFR (Non-Af Amer) 62.3 BUN/Creatinine Ratio 46.1 H Glucose 106 H POC Glucose 125 H Calcium 7.9 L Phosphorus 3.2 Magnesium 2.2 Total Bilirubin 0.9 AST 41 H ALT 34 Alkaline Phosphatase 239 H Total Protein 6.6 Albumin 1.9 L Globulin 4.7 H Albumin/Globulin Ratio 0.4 L Pleural Cholesterol
[2019-04-24] MEDS: Heparin Adult LOW DOSE Wt-Based Dextrose 5% 25,000 units/500 mL IV SCH (10:28)
--- NOTE | 2019-04-24 11:27 | Surgery Progress Note ---
Date of Service April 24, 2019 Assessment & Plan (1) Empyema, left: -pleurex catheter placed on 04/16/19 -MIST 2 protocol has marli utilized with improvement noted of appearance of pleural collection -cultures have grown resistant E.Coli -pt. is receiving Ertapenem which organism is sensitive to -will reculture pleural fluid in the next 24-48 hours -of note, a right thoracentesis was performed on 04/21/19 with cultures thus far (-) for growth Subjective pt. notes his breathing feels good and not labored. Discussed with RN--pt. drained for 30 cc, then 40 cc after dornase instilled. Physical Exam Respiratory: no respiratory distress BS are at bases Results & Data Vital Signs (Past 12 Hours) Vital Signs Temp Pulse Pulse Resp BP BP Pulse Ox 04/24/19 08:50 78/52 L 04/24/19 07:40 89 04/24/19 07:27 72/48 L 04/24/19 07:09 36.6 C 92 H 20 78/35 L 100 04/24/19 03:25 36.7 C 84 16 114/61 99 04/24/19 00:15 36.4 C L 89 19 90/61 L 100
--- NOTE | 2019-04-24 11:41 | Pharmacy Report ---
Pharmacy Glycemic Short Note 2 - Date of Service April 24, 2019 - Glycemic Short BSG Results (Last 24 hours): 04/23/19 04/23/19 04/24/19 16:26 20:04 05:20 Glucose 106 H POC Glucose 118 H 203 H 04/24/19 07:08 Glucose POC Glucose 125 H OUTPATIENT ANTIDIABETIC REGIMEN: * glipizide 5mg QD * Lantus 75-100 units QD-per patient, dose varies based on BSG * HbA1c: 7.9% ASSESSMENT: * Patient has been receiving 67-75 units of insulin per day with adequate control * 35 units of basal insulin * 35 units of bolus insulin * Regimen is evenly distributed 50% basal : 50% bolus * BSGs [phone] mg/dl over the past 24hrs * No changes needed at this time PLAN FOR INPATIENT GLYCEMIC CONTROL: * Hold outpatient oral diabetes medications * Basal: * Lantus 20 units in AM + 15 units in PM * Bolus insulin * NovoLog per scale ACHS * Correction factor 1:15 * Carb ratio: 1:5
--- NOTE | 2019-04-24 13:52 | Hospitalist Progress Note ---
Date of Service April 24, 2019 Assessment & Plan (1) Pneumonia: Likely has left pleural effusion with empyema Thoracic surgery has been consulted-thoracotomy and tube placement has been on hold now Status post left thoracotomy tube placement Management as per thoracic surgeon Has been on on Ertapenem IV Appreciate ID input and recommendation Discussed with thoracic surgery-the chest tube will be in place for some time Clinically better today Poor nutrition Secondary to ongoing comorbid conditions including sepsis Dietitian consulted and will plan to give boost Will not start any parenteral nutrition as he has been improving Increased mobility Low blood pressure noted this morning Multifactorial including medications for the blood pressure and diuretics Diuretics is on hold We will give a small amount of normal saline to increase blood pressure Clinically asymptomatic (2) GI bleeding: Has been having GI bleed with melena and bloody stool at times Status post EGD-mild duodenitis but no evidence of active bleeding anywhere Status post ERCP-choledocholithiasis, extraction of stones and pus, stent placement and pancreatic duct No NSAID use and or aspirin for 5 days after the procedure - Hg stable no signs of active GI bleeding Heparin has been restarted (3) Atrial fibrillation: anticoagulation held due to GI bleeding No more GI bleeding Has been back on heparin (4) Cholecystitis: CT of the abdomen did show cholelithiasis and acute cholecystitis MRI scan supported cholecystitis ERCP shows cholangitis with cholecystitis - no abdominal pain continue Ertapenem IV Appreciate surgery input and recommendation Likely cholecystectomy as an outpatient when medically stable (5) Septic shock: Septic shock secondary to community acquired pneumonia, cholangitis resolved but has been getting intravenous ertapenem for E. coli in empyema (6) S/P TAVR (transcatheter aortic valve replacement): no cardiac symptoms (7) Diabetes mellitus, type II: off Insulin drip and is being continued on basal/bolus therapy (8) Coronary artery disease: Medical management with aspirin, Lipitor. Losartan on hold in setting of MARISA. No acute coronary symptoms (9) Ischemic cardiomyopathy: As above. 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 crea stable (11) DVT (deep venous thrombosis): Anticoagulation is on hold due to GI bleed which required 2 unit of blood transfusion Started on intravenous heparin Poor nutrition secondary to multiple comorbid conditions Dietary consult-has been getting boost Increase ambulation Full code Subjective 04/22 The patient was seen and examined in the telemetry unit He remains very weak and lethargic Denies any pain or shortness of breath at rest His improvement has been very very gradual and slow 04/23 Patient was seen and examined in telemetry unit He has been looking a bit better today Complains of profound weakness and decreased appetite Denies any acute symptoms 04/24 The patient was seen and examined in telemetry unit He was noted to have a very low blood pressure of systolic 78 this morning He remains generally weak but no other symptoms reported He was given 250 mL of normal saline bolus and Lasix Was kept on Hold Review of Systems Review of Systems: All systems reviewed and are unremarkable except as noted below Constitutional: + fatigue, + weakness and + anorexia Respiratory: + dyspnea (With minimal activity); no cough Cardiovascular: + edema (Trace edema bilaterally); no chest pain at rest Gastrointestinal: + abdominal pain and + bloating Musculoskeletal: No acute arthritis in any of the joints Neurologic: + generalized weakness Alert, awake and oriented x3 generally very weak and lethargic Physical Exam Physical Exam: Lying in bed comfortably with weakness Constitutional: + ill appearing, + frail appearing, well groomed, cooperative and comfortable; + not well nourished Eyes: PERRL, conjunctivae normal, anicteric sclerae ENMT: external ear and nose normal, oropharynx normal Neck: trachea midline, no thyromegaly Respiratory: normal respiratory effort; no respiratory distress and does not use accessory muscles Auscultation: + diminished lung sounds (Diminished L side ) and + crackles (Minimal crackles at the right base and decreased breath sounds left lower lung) Cardiovascular: Rate/Rhythm: + abnormal rate and + abnormal rhythm Heart Sounds: no murmur Extremities: + edema (Trace bilateral lower extremities) Gastrointestinal (Abdomen): Inspection/Auscultation: + abdomen distended Percussion/Palpation: + abdomen tender (Left-sided tenderness) and abdomen soft; no guarding Musculoskeletal: No acute arthritis Skin: no rashes, warm and dry no jaundice Neurologic: moves all extremities Motor/Sensory: no asterixis Psychiatric: A+Ox3, euthymic affect Lymphatic: no cervical or axillary lymphadenopathy + lymphedema (trace b ilateral LE edema ) Results & Data Vital Signs (Past 12 Hours) Vital Signs Temp Pulse Pulse Resp BP BP Pulse Ox 04/24/19 08:50 78/52 L 04/24/19 07:40 89 04/24/19 07:27 72/48 L 04/24/19 07:09 36.6 C 92 H 20 78/35 L 100 04/24/19 03:25 36.7 C 84 16 114/61 99 Laboratory Results Short CBC 04/24/19 Range/Units 05:20 WBC 7.91 (4.8-10.8) K/uL Hgb 8.8 L (14.0-18.0) g/dL Hct 28.6 L (42-52) % Plt Count 215 (130-400) K/uL BMP 04/24/19 05:20 Sodium 138 Potassium 4.4 Chloride 101 Carbon Dioxide 32 BUN 53 H Creatinine 1.15 Glucose 106 H Calcium 7.9 L Liver Function 04/24/19 Range/Units 05:20 Total Bilirubin 0.9 (0.2-1) mg/dl AST 41 H (15-37) U/L ALT 34 (12-78) U/L Alkaline Phosphatase 239 H (45-117) U/L Albumin 1.9 L (3.4-5.0) gm/dl Medications Administered Current Inpatient Medications Acetaminophen (Tylenol) 500 mg PO Q4 PRN PRN Reason: Fever Or Pain Stop: 05/05/19 23:15 Last Admin: 04/16/19 18:12 Dose: 500 mg Documented by: Aspirin (Ecotrin Ectab) [facility] [place] Stop: 05/17/19 08:59 Last Admin: 04/24/19 09:00 Dose: 81 mg Documented by: Atorvastatin Calcium (Lipitor) 40 mg PO [facility] Stop: 05/06/19 20:59 Last Admin: 04/23/19 20:49 Dose: 40 mg Documented by: Buspirone HCl (Buspar) 2.5 mg PO TID PRN PRN Reason: Anxiety Stop: 05/06/19 01:42 Last Admin: 04/20/19 09:50 Dose: 2.5 mg Documented by: Dextrose (Dextrose 50%) 25 - 50 ml IV UD PRN; Protocol PRN Reason: Hypoglycemia Protocol Stop: 05/05/19 23:15 Last Admin: 04/08/19 23:57 Dose: 50 ml Documented by: Docusate Sodium (Colace) 100 mg PO BID PRN PRN Reason: Constipation Stop: 05/05/19 23:15 Last Admin: 04/21/19 21:09 Dose: 100 mg Documented by: Gabapentin (Neurontin) 100 mg PO TID [facility] Stop: 05/06/19 08:59 Last Admin: 04/24/19 08:56 Dose: 100 mg Documented by: Glucagon (Glucagen) 1 mg SQ UD PRN; Protocol PRN Reason: Hypoglycemia Protocol Stop: 05/05/19 23:15 Glucose (Glucose 40%) 15 - 30 gm PO UD PRN; Protocol PRN Reason: Hypoglycemia Protocol Stop: 05/05/19 23:15 Glucose (Dex4 Glucose) 4 - 8 tabs PO UD PRN; Protocol PRN Reason: Hypoglycemia Protocol Stop: 05/05/19 23:15 Sodium Chloride (Nss) 250 mls @ 15 mls/hr IV .[id number] PRN PRN Reason: For Transfusion Stop: 05/11/19 10:18 Last Infusion: 04/24/19 08:32 Dose: Infused Documented by: Ertapenem 1,000 mg/ Sodium (Chloride) 60 mls @ 100 mls/hr IV Q24H [facility] Stop: 04/28/19 16:29 Last Infusion: 04/23/19 18:20 Dose: Infused Documented by: Heparin Sodium/Dextrose (Heparin Sodium/Dextrose) 25,000 units in 500 mls @ 23 mls/hr IV .[id number] [facility]; Protocol Stop: 05/19/19 18:44 Last Admin: 04/24/19 10:28 Dose: 1,150 units/hr, 23 mls/hr Documented by: Insulin Aspart (Novolog Flexpen) 0 units SC ACHS [facility] Stop: 05/10/19 11:29 Last Admin: 04/24/19 12:26 Dose: 22 units Documented by: Insulin Glargine (Lantus Solostar Pen) 0 units SC HS [facility]; Protocol Stop: 05/11/19 20:59 Last Admin: 04/23/19 20:25 Dose: 15 units Documented by: Insulin Glargine (Lantus Solostar Pen) 0 units SC QAM [facility]; Protocol Stop: 05/10/19 08:14 Last Admin: 04/24/19 09:11 Dose: 20 units Documented by: Magnesium Oxide (Mag-Ox) 400 mg PO QAM [facility] Stop: 05/06/19 08:59 Last Admin: 04/24/19 08:56 Dose: 400 mg Documented by: Metoprolol Tartrate (Lopressor) 25 mg PO BID [facility] Stop: 05/09/19 08:59 Last Admin: 04/24/19 08:55 Dose: 25 mg Documented by: Miscellaneous (Carbohydrates For Hypoglycemia) 15 - 30 gm PO UD PRN PRN Reason: Hypoglycemia Treatment Stop: 05/05/19 23:15 Last Admin: 04/20/19 07:26 Dose: 15 gm Documented by: Esme Information (Consult Glycemic Management Pharmacy) 1 ea N/A UD PRN; Protocol PRN Reason: Consult Stop: 05/05/19 23:47 Morphine Sulfate (Morphine Sulfate) 2 mg IV Q12H PRN PRN Reason: Severe Pain Stop: 05/02/19 17:53 Last Admin: 04/23/19 23:27 Dose: 2 mg Documented by: Oxycodone HCl (Roxicodone Immediate Rel) 5 mg PO Q6H PRN PRN Reason: Pain Stop: 04/30/19 20:09 Last Admin: 04/22/19 22:50 Dose: 5 mg Documented by: Pantoprazole Sodium (Protonix) [facility] [place] Stop: 05/10/19 08:59 Last Admin: 04/24/19 08:57 Dose: 40 mg Documented by: Polyethylene Glycol (Miralax Powder Packet) 17 gm PO DAILY PRN PRN Reason: Constipation Stop: 05/05/19 23:15 Senna/Docusate Sodium (Senokot S) 1 [facility] [place] Stop: 05/22/19 08:59 Last Admin: 04/24/19 08:58 Dose: 1 tab Documented by: Sennosides (Senokot) 8.6 mg PO DAILY PRN PRN Reason: Constipation Stop: 05/05/19 23:15 Last Admin: 04/20/19 09:50 Dose: 8.6 mg Documented by: Spironolactone (Aldactone) 25 mg PO QAM [facility] Stop: 05/18/19 12:29 Last Admin: 04/24/19 08:59 Dose: 25 mg Documented by: Torsemide (Demadex) 40 mg PO QAM [facility] Stop: 05/18/19 12:29 Last Admin: 04/24/19 08:50 Dose: Not Given Documented by: Torsemide (Demadex) 20 mg PO QPM [facility] Stop: 05/18/19 20:59 Last Admin: 04/23/19 20:23 Dose: 20 mg Documented by: Zolpidem Tartrate (Ambien) 5 mg PO HS PRN PRN Reason: Sleep Stop: 05/10/19 18:35 Last Admin: 04/21/19 21:09 Dose: 5 mg Documented by:
[2019-04-24] MEDS: ERTAPENEM SODIUM 1,000 MG in SODIUM CHLORIDE 0.9% 50 ML IV SCH (16:44)
[2019-04-24] MEDS: DOCUSATE SODIUM 100 MG CAP PO PRN (16:44)
[2019-04-24] MEDS: POLYETHYLENE (MIRALAX) 17 GM PACK PO PRN (16:44)
--- NOTE | 2019-04-24 18:12 | Infectious Disease Progress Nt ---
Date of Service April 24, 2019 Assessment & Plan (1) Empyema, left: 74-year-old male with chronic cholecystitis, cholangitis, choledocholithiasis, and now empyema of the left chest with ESBL producing E. coli. Now status post Pleurx catheter placement, patient slightly improved. Would continue on current antibiotics. Will follow. (2) Cholecystitis, chronic: (3) Infection due to ESBL-producing Escherichia coli: Subjective pt. notes his breathing feels good and not labored. Discussed with RN--pt. drained for 30 cc, then 40 cc after dornase instilled. Review of Systems Review of Systems: All systems reviewed & are unremarkable except as noted in HPI & below Physical Exam Constitutional: WD/WN, vitals as above well developed, + ill appearing and comfortable; no acute distress Eyes: PERRL, conjunctivae normal, anicteric sclerae ENMT: external ear and nose normal, oropharynx normal Neck: trachea midline, no thyromegaly neck nontender Respiratory: normal percussion and + dullness to percussion (Left base); no respiratory distress Auscultation: + diminished lung sounds (Left base) and + rhonchi Cardiovascular: Rate/Rhythm: regular rate and regular rhythm Heart Sounds: normal S1 and normal S2; no gallop, no murmur and no cardiac rub Vessels: normal peripheral pulses; no JVD Gastrointestinal (Abdomen): normal bowel sounds, soft, nontender, no hepatosplenomegaly Inspection/Auscultation: abdomen normal to inspection and normal bowel sounds Percussion/Palpation: + abdomen tender (Right upper quadrant); no hepatosplenomegaly and no abdominal mass Musculoskeletal: no cyanosis or clubbing, extremities motor strength 5/5 Spine: thoracic spine normal to inspection and lumbar spine normal to inspection; no cervical spinal tenderness Skin: no rashes, warm and dry normal turgor; no lesions Neurologic: patellar DTR's 2+ bilat, sensation intact moves all extremities and awake; no focal motor deficits Motor/Sensory: no sensory deficit Psychiatric: A+Ox3, euthymic affect Orientation: cooperative Lymphatic: no cervical or axillary lymphadenopathy no inguinal lymphadenopathy Results & Data Vital Signs (Past 12 Hours) Vital Signs Temp Pulse Pulse Pulse Resp BP BP 04/24/19 15:07 36.6 C 97 H 22 131/66 04/24/19 08:50 78/52 L 04/24/19 07:40 89 04/24/19 07:27 72/48 L 04/24/19 07:09 36.6 C 92 H 20 78/35 L Pulse Ox 04/24/19 15:07 100 04/24/19 08:50 04/24/19 07:40 04/24/19 07:27 04/24/19 07:09 100 Laboratory Results Short CBC 04/24/19 Range/Units 05:20 WBC 7.91 (4.8-10.8) K/uL Hgb 8.8 L (14.0-18.0) g/dL Hct 28.6 L (42-52) % Plt Count 215 (130-400) K/uL BMP 04/24/19 05:20 Sodium 138 Potassium 4.4 Chloride 101 Carbon Dioxide 32 BUN 53 H Creatinine 1.15 Glucose 106 H Calcium 7.9 L Liver Function 04/24/19 Range/Units 05:20 Total Bilirubin 0.9 (0.2-1) mg/dl AST 41 H (15-37) U/L ALT 34 (12-78) U/L Alkaline Phosphatase 239 H (45-117) U/L Albumin 1.9 L (3.4-5.0) gm/dl Diagnostic Findings Microbiology 04/21/19 08:50 Pleural Fluid Gram Stain - Final 04/21/19 08:50 Pleural Fluid Aerobic and Anaerobic Culture - Preliminary No growth to date. 04/21/19 08:50 Pleural Fluid Acid Fast Bacilli Smear - Final 04/16/19 20:57 Blood Aerobic Blood Culture - Final No growth in Aerobic bottle after 5 days. 04/16/19 20:57 Blood Anaerobic Blood Culture - Final No growth in Anaerobic bottle after 5 days. 04/16/19 21:01 Blood Aerobic Blood Culture - Final No growth in Aerobic bottle after 5 days. 04/16/19 21:01 Blood Anaerobic Blood Culture - Final No growth in Anaerobic bottle after 5 days. 04/21/19 08:50 Pleural Fluid Fungal Smear - Final 04/16/19 Unknown Pleural Fluid Gram Stain - Final 04/16/19 Unknown Pleural Fluid Aerobic and Anaerobic Culture - Final Escherichia coli ESBL 04/16/19 Unknown Pleural Fluid Acid Fast Bacilli Smear - Final 04/16/19 Unknown Pleural Fluid Acid Fast Bacilli Culture - Preliminary No Acid-Fast Bacilli Isolated - Report 1, Additional Report to Follow. 04/16/19 Unknown Pleural Fluid Fungal Smear - Final 04/16/19 Unknown Pleural Fluid Fungal Culture - Preliminary No yeast or fungus isolated - Report 1, Additio nal Report to Follow. 04/06/19 13:30 Pleural Fluid Acid Fast Bacilli Smear - Final 04/06/19 13:30 Pleural Fluid Acid Fast Bacilli Culture - Preliminary No Acid-Fast Bacilli Isolated - Report 2, Additional Report to Follow. 04/12/19 13:57 Urine,Clean Catch Urine Culture - Final No growth - less than 1,000 colonies/mL. 04/08/19 08:28 Blood Aerobic Blood Culture - Final No growth in Aerobic bottle after 5 days. 04/08/19 08:28 Blood Anaerobic Blood Culture - Final No growth in Anaerobic bottle after 5 days. 04/08/19 08:38 Blood Aerobic Blood Culture - Final No growth in Aerobic bottle after 5 days. 04/08/19 08:38 Blood Anaerobic Blood Culture - Final No growth in Anaerobic bottle after 5 days. 04/07/19 08:33 Blood Aerobic Blood Culture - Final No growth in Aerobic bottle after 5 days. 04/07/19 08:33 Blood Anaerobic Blood Culture - Final No growth in Anaerobic bottle after 5 days. 04/07/19 08:44 Blood Aerobic Blood Culture - Final No growth in Aerobic bottle after 5 days. 04/07/19 08:44 Blood Anaerobic Blood Culture - Final No growth in Anaerobic bottle after 5 days. 04/05/19 20:47 Blood Aerobic Blood Culture - Final No growth in Aerobic bottle after 5 days. 04/05/19 20:47 Blood Anaerobic Blood Culture - Final Coag neg staph not lugdunensis 04/06/19 13:30 Pleural Fluid Gram Stain - Final 04/06/19 13:30 Pleural Fluid Aerobic and Anaerobic Culture - Final Escherichia coli ESBL 04/05/19 20:47 Blood Aerobic Blood Culture - Final No growth in Aerobic bottle after 5 days. 04/05/19 20:47 Blood Anaerobic Blood Culture - Final No growth in Anaerobic bottle after 5 days.
[2019-04-24] MEDS: ATORVASTATIN 40 MG TAB PO SCH (21:02)
[2019-04-25] MEDS ORDERED: BISACODYL 10 MG SUPP PR STA (04:58)
[2019-04-25] MEDS: Heparin Adult LOW DOSE Wt-Based Dextrose 5% 25,000 units/500 mL IV SCH (05:56)
[2019-04-25 06:42] LABS: INR 1.2 (0.9-1.1); Partial Thromboplastin Ratio 1.6; Prothrombin Time 12.5 Seconds (9.0-12.0)
[2019-04-25] MEDS ORDERED: HEPARIN IV BOLUS 3,000 UNITS in SYRINGE 0 ML IV ONE (06:53)
[2019-04-25 06:54] LABS: BUN Creatinine Ratio 44.9 (10-20); Calcium 8.2 mg/dl (8.5-10.1); Creatinine Clr Calc Pharmacy 73.2 ml/min; Est GFR (African American) 78.8; Potassium 4.5 mmol/L (3.5-5.1)
[2019-04-25] MEDS: POLYETHYLENE (MIRALAX) 17 GM PACK PO PRN (08:32)
[2019-04-25] MEDS: DOCUSATE SODIUM 100 MG CAP PO PRN (08:32)
[2019-04-25] MEDS: SPIRONOLACTONE 25 MG TAB PO SCH (08:37)
[2019-04-25] MEDS: PANTOprazole 40 MG TAB PO SCH (08:37)
[2019-04-25] MEDS: METOPROLOL TARTRATE 25 MG TAB PO SCH ×2 (08:38→20:46)
[2019-04-25] MEDS: ASPIRIN 81 MG ECTAB PO SCH (08:39)
[2019-04-25] MEDS: DOCUSATE SODIUM/SENNA 50/8.6MG TAB PO SCH (08:39)
[2019-04-25] MEDS: MAGNESIUM OXIDE 400 MG TAB PO SCH (08:39)
[2019-04-25] MEDS: GABAPENTIN 100 MG CAP PO SCH ×3 (08:39→20:46)
[2019-04-25] MEDS: INSULIN GLARGINE SOLOSTAR 100 UNITS/ML 3 ML PEN SC SCH ×2 (08:40→20:45)
[2019-04-25] MEDS: INSULIN ASPART 100 UNITS/ML 3 ML PEN SC SCH ×4 (08:42→20:46)
--- NOTE | 2019-04-25 09:30 | Surgery Progress Note ---
Date of Service April 25, 2019 Assessment & Plan (1) Empyema, left: -pt. had pleurex placed as previously noted with utilization of MIST 2 protocol -culture grew a resistant E.coli -improvement has been noted radiographically and clinically -fluid was recultured this am and thus far gra stain did not show any organism; will await culture results with additional recommendations to follow Subjective Pt. denies SOB. No abdominal pain. Discussed with RN and pleurex drained for 50 cc this am. Physical Exam Respiratory: BS are decreased at bases L>R Results & Data Vital Signs (Past 12 Hours) Vital Signs Temp Pulse Pulse Pulse Resp BP Pulse Ox 04/25/19 07:25 91 H 04/25/19 03:37 36.7 C 90 20 125/71 96 04/24/19 23:02 37.4 C 95 H 19 81/42 L 97
--- NOTE | 2019-04-25 12:10 | Cardiology Progress Note ---
Date of Service April 25, 2019 Assessment & Plan (1) Acute on chronic HFrEF (heart failure with reduced ejection fraction): Known ischemic cardiomyopathy, moderate left ventricular systolic dysfunction. EF 30 to 35%. Stable aortic valve prosthetic indices. Outpatient diuretic regimen: Torsemide 40 mg in the AM and 20 mg in the PM along with 25 mg of spironolactone. Continue to hold torsemide additional day with likely resumption in a.m. at lower dosing (2) Atrial fibrillation: Chronic atrial fibrillation. Rates acceptable given the current issues Continue metoprolol as prescribed. Watching for signs of bleeding, heparin infusion started transition to warfarin when stable if no plans for chest tube removal would initiate warfarin (3) Coronary artery disease: Stable Continue medical management (4) S/P TAVR (transcatheter aortic valve replacement): History of TAVR complicated by prosthetic fracture and then underwent open surgical aortic valve replacement in 2017. Resume aspirin for stroke prophylaxis. Continue knee-high sequential pneumatic compression devices for DVT prophylaxis. Patient is also been found to have choledocholithiasis and laparoscopic cholecystectomy is to be reconsidered in the future after he recovers from his current illness. Subjective Patient seen and examined, chart medications telemetry reviewed. Slightly stronger today beginning to get out of bed main complaints constipation. Initially declined physical therapy but willing today. No chest pains or dizziness. Blood pressures somewhat variable and trending towards low Physical Exam Constitutional: no acute distress ENMT: external ear and nose normal, oropharynx normal Neck: trachea midline, no thyromegaly Cardiovascular: Rate/Rhythm: + irregularly irregular Heart Sounds: + murmur (Grade 2/6 systolic no diastolic murmur) Extremities: + edema (Minimal); no calf tenderness Gastrointestinal (Abdomen): Percussion/Palpation: abdomen soft; abdomen nontender Psychiatric: Affect: + flat affect Results & Data Vital Signs (Past 12 Hours) Vital Signs Temp Pulse Pulse Pulse Resp BP Pulse Ox 04/25/19 11:56 36.3 C L 99 H 18 92/58 L 95 04/25/19 07:25 91 H 04/25/19 03:37 36.7 C 90 20 125/71 96 Laboratory Results Laboratory Results - last 24 hr 04/24/19 04/24/19 04/25/19 16:27 20:04 05:46 PT 12.5 H INR 1.2 H APTT 43.0 H PTT Ratio 1.6 Sodium Potassium Chloride Carbon Dioxide Anion Gap BUN Creatinine Est Cr Clr Drug Dosing Est GFR ( Amer) Est GFR (Non-Af Amer) BUN/Creatinine Ratio Glucose POC Glucose 131 H 148 H Calcium 04/25/19 04/25/19 04/25/19 05:46 07:39 11:31 PT INR APTT PTT Ratio Sodium 136 Potassium 4.5 Chloride 100 Carbon Dioxide 30 Anion Gap 6.0 BUN 48 H Creatinine 1.07 Est Cr Clr Drug Dosing 73.2 Est GFR ( Amer) 78.8 Est GFR (Non-Af Amer) 68.0 BUN/Creatinine Ratio 44.9 H Glucose 124 H POC Glucose 137 H 212 H Calcium 8.2 L
[2019-04-25 13:37] LABS: Partial Thromboplastin Ratio 1.9
[2019-04-25 13:38] LABS: Partial Thromboplastin Time 52.4 Seconds (21.0-31.0)
[2019-04-25] MEDS ORDERED: SOD PHOSPHATE/SOD BIPHOSPHATE ENEMA 132 ML BTL PR STA (14:00)
--- NOTE | 2019-04-25 15:08 | Hospitalist Progress Note ---
Date of Service April 25, 2019 Assessment & Plan (1) Pneumonia: Likely has left pleural effusion with empyema Thoracic surgery has been consulted-thoracotomy and tube placement has been on hold now Status post left thoracotomy tube placement Management as per thoracic surgeon Has been on on Ertapenem IV Appreciate ID input and recommendation Discussed with thoracic surgery-the chest tube will be in place for some time Clinically better and continues to improve gradually Poor nutrition Secondary to ongoing comorbid conditions including sepsis Dietitian consulted and will plan to give boost Will not start any parenteral nutrition as he has been improving Increased mobility Has been getting extra nutritional supplement Advised to increase mobility and participating physical therapy Low blood pressure noted this morning Multifactorial including medications for the blood pressure and diuretics Diuretics is on hold We will give a small amount of normal saline to increase blood pressure Clinically asymptomatic Low blood pressure Has been on torsemide which was on hold yesterday He seems to be better this morning Will need to have diuretics and a small dose Continue beta-brandi Constipation Bowel has not moved for a while Has been getting laxatives and suppositories without much benefit Will try Fleet enema today (2) GI bleeding: Has been having GI bleed with melena and bloody stool at times Status post EGD-mild duodenitis but no evidence of active bleeding anywhere Status post ERCP-choledocholithiasis, extraction of stones and pus, stent placement and pancreatic duct No NSAID use and or aspirin for 5 days after the procedure - Hg stable no signs of active GI bleeding Heparin has been restarted (3) Atrial fibrillation: anticoagulation held due to GI bleeding No more GI bleeding Has been back on heparin No acute cardiac symptoms (4) Cholecystitis: CT of the abdomen did show cholelithiasis and acute cholecystitis MRI scan supported cholecystitis ERCP shows cholangitis with cholecystitis - no abdominal pain continue Ertapenem IV Appreciate surgery input and recommendation Likely cholecystectomy as an outpatient when medically stable (5) Septic shock: Septic shock secondary to community acquired pneumonia, cholangitis resolved but has been getting intravenous ertapenem for E. coli in empyema (6) S/P TAVR (transcatheter aortic valve replacement): no cardiac symptoms (7) Diabetes mellitus, type II: off Insulin drip and is being continued on basal/bolus therapy (8) Coronary artery disease: Medical management with aspirin, Lipitor. Losartan on hold in setting of MARISA. No acute coronary symptoms (9) Ischemic cardiomyopathy: As above. 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 crea stable (11) DVT (deep venous thrombosis): Anticoagulation is on hold due to GI bleed which required 2 unit of blood transfusion Started on intravenous heparin Poor nutrition secondary to multiple comorbid conditions Dietary consult-has been getting boost Increase ambulation Full code Subjective 04/22 The patient was seen and examined in the telemetry unit He remains very weak and lethargic Denies any pain or shortness of breath at rest His improvement has been very very gradual and slow 04/23 Patient was seen and examined in telemetry unit He has been looking a bit better today Complains of profound weakness and decreased appetite Denies any acute symptoms 04/24 The patient was seen and examined in telemetry unit He was noted to have a very low blood pressure of systolic 78 this morning He remains generally weak but no other symptoms reported He was given 250 mL of normal saline bolus and Lasix Was kept on Hold 04/25 Patient was seen and examined in the telemetry unit He has been improving very gradually Complaint to have extreme weakness and has been refusing physical therapy at times Denies any other significant symptoms Advised to participate more in physical therapy if he wants to get better Review of Systems Review of Systems: All systems reviewed and are unremarkable except as noted below Constitutional: + fatigue, + weakness and + anorexia Respiratory: + dyspnea (With minimal activity); no cough Cardiovascular: + edema (Trace edema bilaterally); no chest pain at rest Gastrointestinal: + abdominal pain and + bloating Musculoskeletal: No acute arthritis in any of the joints Neurologic: + generalized weakness Alert, awake and oriented x3 generally very weak and lethargic Physical Exam Physical Exam: No apparent distress at rest except diabetes Constitutional: + ill appearing, + frail appearing, well groomed, cooperative and comfortable; + not well nourished Eyes: PERRL, conjunctivae normal, anicteric sclerae ENMT: external ear and nose normal, oropharynx normal Neck: trachea midline, no thyromegaly Respiratory: normal respiratory effort; no respiratory distress and does not use accessory muscles Auscultation: + diminished lung sounds (Diminished L side ) and + crackles (Minimal crackles at the right base and decreased breath sounds left lower lung) Cardiovascular: RRR, no murmur, no edema Rate/Rhythm: + abnormal rate and + abnormal rhythm Heart Sounds: no murmur Extremities: + edema (Trace bilateral lower extremities) Gastrointestinal (Abdomen): Inspection/Auscultation: abdomen normal to inspection and normal bowel sounds (Diminished) Percussion/Palpation: abdomen soft Skin: no rashes, warm and dry no jaundice Neurologic: moves all extremities Motor/Sensory: no asterixis Generally very weak and lethargic Psychiatric: A+Ox3, euthymic affect Lymphatic: no cervical or axillary lymphadenopathy + lymphedema (trace bilateral LE edema ) Results & Data Vital Signs (Past 12 Hours) Vital Signs Temp Pulse Pulse Pulse Resp BP Pulse Ox 04/25/19 11:56 36.3 C L 99 H 18 92/58 L 95 04/25/19 11:30 36.8 C 101 H 28 H 167/62 H 88 L 04/25/19 07:25 91 H 04/25/19 03:37 36.7 C 90 20 125/71 96 Laboratory Results [facility] 04/25/19 05:46 Sodium 136 Potassium 4.5 Chloride 100 Carbon Dioxide 30 BUN 48 H Creatinine 1.07 Glucose 124 H Calcium 8.2 L Medications Administered Current Inpatient Medications Acetaminophen (Tylenol) 500 mg PO Q4 PRN PRN Reason: Fever Or Pain Stop: 05/05/19 23:15 Last Admin: 04/16/19 18:12 Dose: 500 mg Documented by: Aspirin ([facility]rin Ectab) [facility]: 05/17/19 08:59 Last Admin: 04/25/19 08:39 Dose: 81 mg Documented by: Atorvastatin Calcium (Lipitor) 40 mg PO HS [facility] Stop: 05/06/19 20:59 Last Admin: 04/24/19 21:02 Dose: 40 mg Documented by: Buspirone HCl (Buspar) 2.5 mg PO TID PRN PRN Reason: Anxiety Stop: 05/06/19 01:42 Last Admin: 04/20/19 09:50 Dose: 2.5 mg Documented by: Dextrose (Dextrose 50%) 25 - 50 ml IV UD PRN; Protocol PRN Reason: Hypoglycemia Protocol Stop: 05/05/19 23:15 Last Admin: 04/08/19 23:57 Dose: 50 ml Documented by: Docusate Sodium (Colace) 100 mg PO BID PRN PRN Reason: Constipation Stop: 05/05/19 23:15 Last Admin: 04/25/19 08:32 Dose: 100 mg Documented by: Gabapentin (Neurontin) 100 mg PO TID [facility] Stop: 05/06/19 08:59 Last Admin: 04/25/19 14:28 Dose: 100 mg Documented by: Glucagon (Glucagen) 1 mg SQ UD PRN; Protocol PRN Reason: Hypoglycemia Protocol Stop: 05/05/19 23:15 Glucose (Glucose 40%) 15 - 30 gm PO UD PRN; Protocol PRN Reason: Hypoglycemia Protocol Stop: 05/05/19 23:15 Glucose (Dex4 Glucose) 4 - 8 tabs PO UD PRN; Protocol PRN Reason: Hypoglycemia Protocol Stop: 05/05/19 23:15 Sodium Chloride (Nss) 250 mls @ 15 mls/hr IV .[id number] PRN PRN Reason: For Transfusion Stop: 05/11/19 10:18 Last Infusion: 04/24/19 08:32 Dose: Infused Documented by: Ertapenem 1,000 mg/ Sodium (Chloride) 60 mls @ 100 mls/hr IV Q24H [facility] Stop: 04/28/19 16:29 Last Infusion: 04/24/19 17:20 Dose: Infused Documented by: Heparin Sodium/Dextrose (Heparin Sodium/Dextrose) 25,000 units in 500 mls @ 25 mls/hr IV .Q20H [facility]; Protocol Stop: 05/19/19 18:44 Last Titration: 04/25/19 06:56 Dose: 1,250 units/hr, 25 mls/hr Documented by: Insulin Aspart (Novolog Flexpen) 0 units SC ACHS [facility] Stop: 05/10/19 11:29 Last Admin: 04/25/19 12:38 Dose: 12 units Documented by: Insulin Glargine (Lantus Solostar Pen) 0 units SC HS [facility]; Protocol Stop: 05/11/19 20:59 Last Admin: 04/24/19 21:01 Dose: 10 units Documented by: Insulin Glargine (Lantus Solostar Pen) 0 units SC QAM [facility]; Protocol Stop: 05/10/19 08:14 Last Admin: 04/25/19 08:40 Dose: 20 units Documented by: Magnesium Oxide (Mag-Ox) 400 mg PO QAM [facility] Stop: 05/06/19 08:59 Last Admin: 04/25/19 08:39 Dose: 400 mg Documented by: Metoprolol Tartrate (Lopressor) 25 mg PO BID [facility] Stop: 05/25/19 20:59 Miscellaneous (Carbohydrates For Hypoglycemia) 15 - 30 gm PO UD PRN PRN Reason: Hypoglycemia Treatment Stop: 05/05/19 23:15 Last Admin: 04/20/19 07:26 Dose: 15 gm Documented by: Miscellaneous Information (Consult Glycemic Management Pharmacy) 1 ea N/A UD PRN; Protocol PRN Reason: Consult Stop: 05/05/19 23:47 Morphine Sulfate (Morphine Sulfate) 2 mg IV Q12H PRN PRN Reason: Severe Pain Stop: 05/02/19 17:53 Last Admin: 04/23/19 23:27 Dose: 2 mg Documented by: Oxycodone HCl (Roxicodone Immediate Rel) 5 mg PO Q6H PRN PRN Reason: Pain Stop: 04/30/19 20:09 Last Admin: 04/22/19 22:50 Dose: 5 mg Documented by: Pantoprazole S[facility] (Protonix) [facility] Stop: 05/10/19 08:59 Last Admin: 04/25/19 08:37 Dose: 40 mg Documented by: Polyethylene Glycol (Miralax Powder Packet) 17 gm PO DAILY PRN PRN Reason: Constipation Stop: 05/05/19 23:15 Last Admin: 04/25/19 08:32 Dose: 17 gm Documented by: Senna/Docusate Sodium (Senokot S) [facility] [place] Stop: 05/22/19 08:59 Last Admin: 04/25/19 08:39 Dose: 1 tab Documented by: Sennosides (Senokot) 8.6 mg PO DAILY PRN PRN Reason: Constipation Stop: 05/05/19 23:15 Last Admin: 04/20/19 09:50 Dose: 8.6 mg Documented by: Spironolactone (Aldactone) 25 mg PO QAM [facility] Stop: 05/18/19 12:29 Last Admin: 04/25/19 08:37 Dose: 25 mg Documented by: Torsemide (Demadex) 40 mg PO QAM [facility] Stop: 05/18/19 12:29 Last Admin: 04/24/19 08:50 Dose: Not Given Documented by: Torsemide (Demadex) 20 mg PO QPM [facility] Stop: 05/18/19 20:59 Last Admin: 04/23/19 20:23 Dose: 20 mg Documented by: Zolpidem Tartrate (Ambien) 5 mg PO HS PRN PRN Reason: Sleep Stop: 05/10/19 18:35 Last Admin: 04/21/19 21:09 Dose: 5 mg Documented by:
[2019-04-25] MEDS: ERTAPENEM SODIUM 1,000 MG in SODIUM CHLORIDE 0.9% 50 ML IV SCH (16:33)
[2019-04-25] MEDS: ATORVASTATIN 40 MG TAB PO SCH (20:46)
[2019-04-25] MEDS ORDERED: METOPROLOL TARTRATE 25 MG TAB PO SCH (21:00)
[2019-04-26] MEDS: Heparin Adult LOW DOSE Wt-Based Dextrose 5% 25,000 units/500 mL IV SCH ×2 (00:51→18:20)
[2019-04-26 07:28] LABS: Partial Thromboplastin Ratio 1.7
[2019-04-26 07:29] LABS: Partial Thromboplastin Time 45.9 Seconds (21.0-31.0)
[2019-04-26 07:39] LABS: BUN Creatinine Ratio 43.2 (10-20); Calcium 8.3 mg/dl (8.5-10.1); Creatinine Clr Calc Pharmacy 76.8 ml/min; Est GFR (African American) 86.6; Est GFR (Non-African American) 74.7; Potassium 4.1 mmol/L (3.5-5.1)
[2019-04-26] MEDS ORDERED: Nursing to Pharmacy Communication ONE (07:55)
[2019-04-26] MEDS: POLYETHYLENE (MIRALAX) 17 GM PACK PO PRN (08:20)
[2019-04-26] MEDS: DOCUSATE SODIUM 100 MG CAP PO PRN (08:20)
[2019-04-26] MEDS: METOPROLOL TARTRATE 25 MG TAB PO SCH ×2 (08:21→20:05)
[2019-04-26] MEDS: ASPIRIN 81 MG ECTAB PO SCH (08:22)
[2019-04-26] MEDS: MAGNESIUM OXIDE 400 MG TAB PO SCH (08:22)
[2019-04-26] MEDS: DOCUSATE SODIUM/SENNA 50/8.6MG TAB PO SCH (08:22)
[2019-04-26] MEDS: SPIRONOLACTONE 25 MG TAB PO SCH (08:23)
[2019-04-26] MEDS: GABAPENTIN 100 MG CAP PO SCH ×3 (08:23→20:05)
[2019-04-26] MEDS: INSULIN GLARGINE SOLOSTAR 100 UNITS/ML 3 ML PEN SC SCH ×2 (08:26→21:36)
[2019-04-26] MEDS: PANTOprazole 40 MG TAB PO SCH (08:28)
[2019-04-26] MEDS: INSULIN ASPART 100 UNITS/ML 3 ML PEN SC SCH ×4 (08:28→21:35)
[2019-04-26] MEDS ORDERED: HEPARIN IV BOLUS 3,000 UNITS in SYRINGE 0 ML IV ONE (08:45)
--- NOTE | 2019-04-26 10:01 | Surgery Progress Note ---
Date of Service April 26, 2019 Assessment & Plan (1) Empyema, left: -pt. had pleurex placed as previously noted with utilization of MIST 2 protocol -culture grew a resistant E.coli -improvement has been noted radiographically and clinically -WBC noted to be in normal range today -fluid was recultured 04/25 and no organisms noted on gram stain did not show any organisms; thus far no growth noted on cultures -will repeat CXR tomorrow Subjective Pt. states "my breathing feels pretty good." He denies abdominal pain. Discussed with RN and no immediate concerns noted. Physical Exam Constitutional: no acute distress Respiratory: no respiratory distress and no labored breathing BS are d ecreased at bases Results & Data Vital Signs (Past 12 Hours) Vital Signs Temp Pulse Resp BP Pulse Ox 04/26/19 07:03 36.4 C L 90 17 130/62 98 04/26/19 04:00 36.7 C 85 18 85/26 L 98 04/25/19 23:17 36.3 C L 73 16 83/40 L 99
--- NOTE | 2019-04-26 11:31 | Hospitalist Progress Note ---
Date of Service April 26, 2019 Assessment & Plan (1) Pneumonia: Likely has left pleural effusion with empyema Thoracic surgery has been consulted-thoracotomy and tube placement has been on hold now Status post left thoracotomy tube placement Management as per thoracic surgeon Has been on on Ertapenem IV Appreciate ID input and recommendation Discussed with thoracic surgery-the chest tube will be in place for some time Clinically better and continues to improve gradually Poor nutrition Secondary to ongoing comorbid conditions including sepsis Dietitian consulted and will plan to give boost Will not start any parenteral nutrition as he has been improving Increased mobility Has been getting extra nutritional supplement Advised to increase mobility and participating physical therapy Low blood pressure noted this morning Multifactorial including medications for the blood pressure and diuretics Diuretics is on hold We will give a small amount of normal saline to increase blood pressure Clinically asymptomatic Low blood pressure Has been on torsemide which was on hold yesterday He seems to be better this morning Will need to have diuretics and a small dose Continue beta-brandi Constipation Bowel has not moved for a while Has been getting laxatives and suppositories without much benefit Will try Fleet enema today (2) GI bleeding: Has been having GI bleed with melena and bloody stool at times Status post EGD-mild duodenitis but no evidence of active bleeding anywhere Status post ERCP-choledocholithiasis, extraction of stones and pus, stent placement and pancreatic duct No NSAID use and or aspirin for 5 days after the procedure - Hg stable no signs of active GI bleeding Heparin has been restarted (3) Atrial fibrillation: anticoagulation held due to GI bleeding No more GI bleeding Has been back on heparin No acute cardiac symptoms (4) Cholecystitis: CT of the abdomen did show cholelithiasis and acute cholecystitis MRI scan supported cholecystitis ERCP shows cholangitis with cholecystitis - no abdominal pain continue Ertapenem IV Appreciate surgery input and recommendation Likely cholecystectomy as an outpatient when medically stable (5) Septic shock: Septic shock secondary to community acquired pneumonia, cholangitis resolved but has been getting intravenous ertapenem for E. coli in empyema (6) S/P TAVR (transcatheter aortic valve replacement): no cardiac symptoms (7) Diabetes mellitus, type II: off Insulin drip and is being continued on basal/bolus therapy (8) Coronary artery disease: Medical management with aspirin, Lipitor. Losartan on hold in setting of MARISA. No acute coronary symptoms (9) Ischemic cardiomyopathy: As above. 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 crea stable (11) DVT (deep venous thrombosis): Anticoagulation is on hold due to GI bleed which required 2 unit of blood transfusion Started on intravenous heparin Poor nutrition secondary to multiple comorbid conditions Dietary consult-has been getting boost Increase ambulation Full code Review of Systems Review of Systems: All systems reviewed and are unremarkable except as noted below Constitutional: + fatigue, + weakness and + anorexia Respiratory: + dyspnea (With minimal activity); no cough Cardiovascular: + edema (Trace edema bilaterally); no chest pain at rest Gastrointestinal: + abdominal pain and + bloating Musculoskeletal: No acute arthritis in any of the joints Neurologic: + generalized weakness Alert, awake and oriented x3 generally very weak and lethargic Physical Exam Constitutional: WD/WN, vitals as above + ill appearing, + frail appearing, well groomed, cooperative and comfortable; + not well nourished Eyes: PERRL, conjunctivae normal, anicteric sclerae ENMT: external ear and nose normal, oropharynx normal Neck: trachea midline, no thyromegaly Respiratory: normal respiratory effort, lungs clear to auscultation normal respiratory effort; no respiratory distress and does not use accessory muscles Auscultation: + diminished lung sounds (Diminished L side ) and + crackles (Minimal crackles at the right base and decreased breath sounds left lower lung) Cardiovascular: RRR, no murmur, no edema Rate/Rhythm: + abnormal rate and + abnormal rhythm Heart Sounds: no murmur Extremities: + edema (Trace bilateral lower extremities) Gastrointestinal (Abdomen): normal bowel sounds, soft, nontender, no hepatosplenomegaly Inspection/Auscultation: abdomen normal to inspection and normal bowel sounds (Diminished) Percussion/Palpation: abdomen soft Skin: no rashes, warm and dry no jaundice Neurologic: moves all extremities Motor/Sensory: no asterixis Psychiatric: A+Ox3, euthymic affect Lymphatic: no cervical or axillary lymphadenopathy + lymphedema (trace bilateral LE edema ) Results & Data Vital Signs (Past 12 Hours) Vital Signs Temp Pulse Resp BP Pulse Ox 04/26/19 11:18 95/68 L 04/26/19 11:01 36.7 C 89 18 99 04/26/19 07:03 36.4 C L 90 17 130/62 98 04/26/19 04:00 36.7 C 85 18 85/26 L 98
--- NOTE | 2019-04-26 11:52 | Hospitalist Progress Note ---
Date of Service April 26, 2019 Assessment & Plan (1) Pneumonia: Likely has left pleural effusion with empyema Thoracic surgery has been consulted-thoracotomy and tube placement has been on hold now Status post left thoracotomy tube placement Management as per thoracic surgeon Has been on on Ertapenem IV Appreciate ID input and recommendation Discussed with thoracic surgery-the chest tube will be in place for some time Clinically better and continues to improve gradually No respiratory symptoms With left chest x-ray tomorrow Poor nutrition Secondary to ongoing comorbid conditions including sepsis Dietitian consulted and will plan to give boost Will not start any parenteral nutrition as he has been improving Increased mobility Has been getting extra nutritional supplement Advised to increase mobility and participating physical therapy Will check albumin tomorrow Low blood pressure noted this morning Multifactorial including medications for the blood pressure and diuretics Diuretics is on hold We will give a small amount of normal saline to increase blood pressure Clinically asymptomatic Blood pressure seems to be stable and systolic more than 130 Will start torsemide 40 mg only in the morning Constipation Bowel has not moved for a while Has been getting laxatives and suppositories without much benefit Will try Fleet enema today Bowel movement yesterday (2) GI bleeding: Has been having GI bleed with melena and bloody stool at times Status post EGD-mild duodenitis but no evidence of active bleeding anywhere Status post ERCP-choledocholithiasis, extraction of stones and pus, stent placement and pancreatic duct No NSAID use and or aspirin for 5 days after the procedure - Hg stable no signs of active GI bleeding Heparin has been restarted Will start oral anticoagulation soon (3) Atrial fibrillation: anticoagulation held due to GI bleeding No more GI bleeding Has been back on heparin No acute cardiac symptoms Heart rate is controlled (4) Cholecystitis: CT of the abdomen did show cholelithiasis and acute cholecystitis MRI scan supported cholecystitis ERCP shows cholangitis with cholecystitis - no abdominal pain continue Ertapenem IV Appreciate surgery input and recommendation Likely cholecystectomy as an outpatient when medically stable (5) Septic shock: Septic shock secondary to community acquired pneumonia, cholangitis resolved but has been getting intravenous ertapenem for E. coli in empyema (6) S/P TAVR (transcatheter aortic valve replacement): no cardiac symptoms (7) Diabetes mellitus, type II: off Insulin drip and is being continued on basal/bolus therapy (8) Coronary artery disease: Medical management with aspirin, Lipitor. Losartan on hold in setting of MARISA. No acute coronary symptoms (9) Ischemic cardiomyopathy: As above. 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 crea stable (11) DVT (deep venous thrombosis): Anticoagulation is on hold due to GI bleed which required 2 unit of blood transfusion Started on intravenous heparin Poor nutrition secondary to multiple comorbid conditions Dietary consult-has been getting boost Increase ambulation Full code Subjective 04/22 The patient was seen and examined in the telemetry unit He remains very weak and lethargic Denies any pain or shortness of breath at rest His improvement has been very very gradual and slow 04/23 Patient was seen and examined in telemetry unit He has been looking a bit better today Complains of profound weakness and decreased appetite Denies any acute symptoms 04/24 The patient was seen and examined in telemetry unit He was noted to have a very low blood pressure of systolic 78 this morning He remains generally weak but no other symptoms reported He was given 250 mL of normal saline bolus and Lasix Was kept on Hold 04/25 Patient was seen and examined in the telemetry unit He has been improving very gradually Complaint to have extreme weakness and has been refusing physical therapy at times Denies any other significant symptoms Advised to participate more in physical therapy if he wants to get better 04/26 The patient was seen and examined in telemetry unit He has been feeling a lot better today and denies any acute symptoms He is out of bed on a chair and participating in physical therapy Review of Systems Review of Systems: All systems reviewed and are unremarkable except as noted below Cardiovascular: + edema (Bilateral leg edema) Gastrointestinal: + bloating; no abdominal pain Physical Exam Physical Exam: No apparent distress at rest Constitutional: well developed, + frail appearing, well groomed, cooperative and comfortable; + not well nourished and no acute distress Eyes: PERRL, conjunctivae normal, anicteric sclerae ENMT: Mouth: no dentition abnormality Mallampati Class: III Neck: trachea midline, no thyromegaly normal visual inspection and trachea midline; neck nontender Respiratory: normal respiratory effort; no respiratory distress, no labored breathing and does not use accessory muscles Auscultation: + diminished lung sounds (Diminished L side ), + crackles (Minimal crackles at the right base and decreased breath sounds left lower lung) and + rhonchi; no rales and no wheezes Cardiovascular: Rate/Rhythm: + irregularly irregular; + abnormal rate and + abnormal rhythm Heart Sounds: normal S1 and normal S2 Extremities: + edema (Trace bilateral lower extremities) Gastrointestinal (Abdomen): Inspection/Auscultation: abdomen normal to inspection, + abdomen distended, normal bowel sounds (Diminished) and + hypoactive bowel sounds Percussion/Palpation: abdomen soft; abdomen nontender, no guarding, no hepatosplenomegaly and no abdominal mass Musculoskeletal: Spine: thoracic spine normal to inspection and lumbar spine normal to inspection; no cervical spinal tenderness Generally weak and lethargic but moves all extremities Skin: no rashes, warm and dry normal turgor; no lesions and no jaundice Neurologic: PERRL, EOMI, accommodation nl, no face palsy, no dysarthria moves all extremities and awake; no focal motor deficits Motor/Sensory: no asterixis and no sensory deficit Psychiatric: A+Ox3, euthymic affect Orientation: cooperative Affect: + flat affect Lymphatic: no cervical or axillary lymphadenopathy + lymphedema (trace bilateral LE edema ); no inguinal lymphadenopathy Results & Data Vital Signs (Past 12 Hours) Vital Signs Temp Pulse Resp BP Pulse Ox 04/26/19 11:18 95/68 L 04/26/19 11:01 36.7 C 89 18 99 04/26/19 07:03 36.4 C L 90 17 130/62 98 04/26/19 04:00 36.7 C 85 18 85/[address] [facility] 04/26/19 06:09 Sodium 136 Potassium 4.1 Chloride 102 Carbon Dioxide 28 BUN 43 H Creatinine 0.99 Glucose 95 Calcium 8.3 L Medications Administered Current Inpatient Medications Acetaminophen (Tylenol) 500 mg PO Q4 PRN PRN Reason: Fever Or Pain Stop: 05/05/19 23:15 Last Admin: 04/16/19 18:12 Dose: 500 mg Documented by: [facility]ir[facility] ([facility]ab) [facility] Stop: 05/17/19 08:59 Last Admin: 04/26/19 08:22 Dose: 81 mg Documented by: Atorvastatin Calcium (Lipitor) 40 mg PO HS [facility] Stop: 05/06/19 20:59 Last Admin: 04/25/19 20:46 Dose: 40 mg Documented by: Buspirone HCl (Buspar) 2.5 mg PO TID PRN PRN Reason: Anxiety Stop: 05/06/19 01:42 Last Admin: 04/20/19 09:50 Dose: 2.5 mg Documented by: Dextrose (Dextrose 50%) 25 - 50 ml IV UD PRN; Protocol PRN Reason: Hypoglycemia Protocol Stop: 05/05/19 23:15 Last Admin: 04/08/19 23:57 Dose: 50 ml Documented by: Docusate Sodium (Colace) 100 mg PO BID PRN PRN Reason: Constipation Stop: 05/05/19 23:15 Last Admin: 04/26/19 08:20 Dose: 100 mg Documented by: Gabapentin (Neurontin) 100 mg PO TID [facility] Stop: 05/06/19 08:59 Last Admin: 04/26/19 08:23 Dose: 100 mg Documented by: Glucagon (Glucagen) 1 mg SQ UD PRN; Protocol PRN Reason: Hypoglycemia Protocol Stop: 05/05/19 23:15 Glucose (Glucose 40%) 15 - 30 gm PO UD PRN; Protocol PRN Reason: Hypoglycemia Protocol Stop: 05/05/19 23:15 Glucose (Dex4 Glucose) 4 - 8 tabs PO UD PRN; Protocol PRN Reason: Hypoglycemia Protocol Stop: 05/05/19 23:15 Sodium Chloride (Nss) 250 mls @ 15 mls/hr IV .[id number] PRN PRN Reason: For Transfusion Stop: 05/11/19 10:18 Last Infusion: 04/24/19 08:32 Dose: Infused Documented by: Ertapenem 1,000 mg/ Sodium (Chloride) 60 mls @ 100 mls/hr IV Q24H [facility] Stop: 04/28/19 16:29 Last Infusion: 04/25/19 17:09 Dose: Infused Documented by: Heparin Sodium/Dextrose (Heparin Sodium/Dextrose) 25,000 units in 500 mls @ 27 mls/hr IV .[id number] [facility]; Protocol Stop: 05/19/19 18:44 Last Titration: 04/26/19 07:53 Dose: 1,350 units/hr, 27 mls/hr Documented by: Insulin Aspart (Novolog Flexpen) 0 units SC ACHS [facility] Stop: 05/10/19 11:29 Last Admin: 04/26/19 08:28 Dose: 13 units Documented by: Insulin Glargine (Lantus Solostar Pen) 0 units SC [facility]; Protocol Stop: 05/11/19 20:59 Last Admin: 04/25/19 20:45 Dose: 10 units Documented by: Insulin Glargine (Lantus Solostar Pen) 0 units SC [facility]; Protocol Stop: 05/10/19 08:14 Last Admin: 04/26/19 08:26 Dose: 20 units Documented by: Magnesium Oxide (Mag-Ox) 400 mg PO [facility] Stop: 05/06/19 08:59 Last Admin: 04/26/19 08:22 Dose: 400 mg Documented by: Metoprolol Tartrate (Lopressor) 25 mg PO BID [facility] Stop: 05/25/19 20:59 Last Admin: 04/26/19 08:21 Dose: 25 mg Documented by: Miscellaneous (Carbohydrates For Hypoglycemia) 15 - 30 gm PO UD PRN PRN Reason: Hypoglycemia Treatment Stop: 05/05/19 23:15 Last Admin: 04/20/19 07:26 Dose: 15 gm Documented by: Miscellaneous Information (Consult Glycemic Management Pharmacy) 1 ea N/A UD PRN; Protocol PRN Reason: Consult Stop: 05/05/19 23:47 Morphine Sulfate (Morphine Sulfate) 2 mg IV Q12H PRN PRN Reason: Severe Pain Stop: 05/02/19 17:53 Last Admin: 04/23/19 23:27 Dose: 2 mg Documented by: Oxycodone HCl (Roxicodone Immediate Rel) 5 mg PO Q6H PRN PRN Reason: Pain Stop: 04/30/19 20:09 Last Admin: 04/22/19 22:50 Dose: 5 mg Documented by: Pantoprazole Sodium (Protonix) 40 mg PO [facility] Stop: 05/10/19 08:59 Last Admin: 04/26/19 08:28 Dose: 40 mg Documented by: Polyethylene Glycol (Miralax Powder Packet) 17 gm PO DAILY PRN PRN Reason: Constipation Stop: 05/05/19 23:15 Last Admin: 04/26/19 08:20 Dose: 17 gm Documented by: Senna/Docusate Sodium (Senokot S) 1 tab PO [facility] Stop: 05/22/19 08:59 Last Admin: 04/26/19 08:22 Dose: 1 tab Documented by: Sennosides (Senokot) 8.6 mg PO DAILY PRN PRN Reason: Constipation Stop: 05/05/19 23:15 Last Admin: 04/20/19 09:50 Dose: 8.6 mg Documented by: Spironolactone (Aldactone) 25 mg PO QAM [facility] Stop: 05/18/19 12:29 Last Admin: 04/26/19 08:23 Dose: 25 mg Documented by: Torsemide (Demadex) 40 mg PO QAM [facility] Stop: 05/18/19 12:29 Last Admin: 04/24/19 08:50 Dose: Not Given Documented by: Torsemide (Demadex) 20 mg PO QPM [facility] Stop: 05/18/19 20:59 Last Admin: 04/23/19 20:23 Dose: 20 mg Documented by: Zolpidem Tartrate (Ambien) 5 mg PO HS PRN PRN Reason: Sleep Stop: 05/10/19 18:35 Last Admin: 04/21/19 21:09 Dose: 5 mg Documented by:
--- NOTE | 2019-04-26 14:29 | Pharmacy Report ---
PHA: Glycemic Control AP - Date of Service April 26, 2019 - Assessment & Plan The patient is currently receiving 65-70 units of insulin per day. BSGs ranging 130 - 212 mg/dl over the past 24hrs. * Basal insulin: Lantus 20 units in the morning + 10 units in the evening * Correctional Insulin: Novolog Correction per scale ACHS Goal Range: Low 110 mg/dL - High 140 mg/dL Correction Factor: 25 mg/dL/unit * Prandial insulin: Per carb ratio of 1 unit per 3 grams CHO consumed BSGs continue to improve, no changes needed to inpatient regimen at this time. Pharmacy will continue to monitor patient daily and write orders per [facility] inpatient glycemic control protocol. Insulin dosing may need decreased once patient transitioned off of IV heparin infusion. Thanks. * Please note that the plan above was derived based on current level of insulin resistance and hospital stress. These recommendations are appropriate for inpatient admission only. Plan of care upon discharge will need to be reassessed to avoid potential outpatient hypo/hyperglycemia.
[2019-04-26 14:48] LABS: Partial Thromboplastin Ratio 2.3; Partial Thromboplastin Time 61.2 Seconds (21.0-31.0)
[2019-04-26] MEDS: WARFARIN SOD 7.5 MG TAB PO SCH (15:15)
[2019-04-26] MEDS: ERTAPENEM SODIUM 1,000 MG in SODIUM CHLORIDE 0.9% 50 ML IV SCH (15:16)
[2019-04-26] MEDS: ATORVASTATIN 40 MG TAB PO SCH (20:05)
[2019-04-27 06:02] LABS: Basophils # (auto) 0.06 K/uL (0-0.2); Basophils % (auto) 0.7 %; Eosinophils # (auto) 0.22 K/uL (0-0.5); Eosinophils % (auto) 2.7 %; Hematocrit (blood only) 29.5 % (42-52); Hemoglobin 9.1 g/dL (14.0-18.0); Immature Granulocytes # (auto) 0.03 K/uL (0.00-0.02); Immature Granulocytes % (auto) 0.4 %; Lymphocytes # (auto) 0.51 K/uL (1.2-3.4); Lymphocytes % (auto) 6.2 %; Mean Corpuscular Hgb Conc 30.8 g/dL (32-36); Mean Corpuscular Volume 86.8 fL (80-100); Mean Platelet Volume 10.1 fL (7.4-10.4); Monocytes # (auto) 0.67 K/uL (0.11-0.59); Monocytes % (auto) 8.2 %; Neutrophils # (auto) 6.72 K/uL (1.4-6.5); Neutrophils % (auto) 81.8 %; Platelet Count 220 K/uL (130-400); RDW Coefficient of Variation 19.4 % (11.5-14.5); White Blood Count 8.21 K/uL (4.8-10.8)
[2019-04-27 06:14] LABS: INR 1.2 (0.9-1.1); Prothrombin Time 12.5 Seconds (9.0-12.0)
[2019-04-27 06:35] LABS: BUN Creatinine Ratio 38.6 (10-20); Calcium 8.4 mg/dl (8.5-10.1); Creatinine Clr Calc Pharmacy 72.2 ml/min; Est GFR (African American) 80.7; Est GFR (Non-African American) 69.6; Magnesium 2.6 mg/dl (1.8-2.4); Potassium 4.5 mmol/L (3.5-5.1)
[2019-04-27 06:36] LABS: Phosphorus 3.5 mg/dl (2.5-4.9)
--- NOTE | 2019-04-27 07:09 | XRay Report ---
XR chest 1V portable CLINICAL HISTORY: empyema dyspnea COMPARISON STUDY: 04/24/2019 FINDINGS: Unchanged position of the left basilar drainage catheter. Persistent components of pulmonar y vascular congestion. Unchanged parenchymal infiltrative changes left lung base. No evidence of pneu mothorax. IMPRESSION: No change compared to the prior study. Stable position of the left basilar drainage cath eter combined with unchanging left basilar infiltrative change. The above report was generated using voice recognition software. It may contain grammatical, syntax or spelling errors. Electronically signed by: Kenneth Ortiz M.D. 04/27/2019 7:08 AM
[2019-04-27 07:21] LABS: Partial Thromboplastin Ratio 1.7
[2019-04-27 07:42] LABS: Partial Thromboplastin Time 47.3 Seconds (21.0-31.0)
[2019-04-27] MEDS: INSULIN ASPART 100 UNITS/ML 3 ML PEN SC SCH ×4 (08:31→21:07)
[2019-04-27] MEDS: METOPROLOL TARTRATE 25 MG TAB PO SCH ×2 (08:32→21:05)
[2019-04-27] MEDS: GABAPENTIN 100 MG CAP PO SCH ×3 (08:33→21:05)
[2019-04-27] MEDS: ASPIRIN 81 MG ECTAB PO SCH (08:34)
[2019-04-27] MEDS: PANTOprazole 40 MG TAB PO SCH (08:34)
[2019-04-27] MEDS: TORSEMIDE 10 MG TAB PO SCH (08:34)
[2019-04-27] MEDS: SPIRONOLACTONE 25 MG TAB PO SCH (08:35)
[2019-04-27] MEDS: MAGNESIUM OXIDE 400 MG TAB PO SCH (08:35)
[2019-04-27] MEDS: INSULIN GLARGINE SOLOSTAR 100 UNITS/ML 3 ML PEN SC SCH ×2 (08:36→21:07)
[2019-04-27] MEDS: DOCUSATE SODIUM/SENNA 50/8.6MG TAB PO SCH (08:44)
--- NOTE | 2019-04-27 09:26 | Surgery Progress Note ---
Date of Service April 27, 2019 Assessment & Plan (1) Empyema, left: -pt. had pleurex placed as previously noted with utilization of MIST 2 protocol -culture grew a resistant E.coli -improvement has been noted radiographically and clinically -WBC noted to be in normal range today -fluid was recultured 04/25 and no organisms noted on gram stain did not show any organisms; culture is (-) to date for growth -fluid re-cultured again today--gram stain thus far shows no organisms -will plan on re-culturing 1 more time in next 24-48 hours -CXR today shows small left effusion/atelectasis Subjective Pt. state he feels pretty good today with no significant SOB. He denies abdominal pain. Physical Exam Constitutional: no acute distress Respiratory: no respiratory distress and no labored breathing BS are decreased at bases Results & Data Vital Signs (Past 12 Hours) Vital Signs Temp Pulse Pulse Resp BP Pulse Ox 04/27/19 07:18 36.7 C 92 H 18 110/64 96 04/27/19 03:57 36.5 C 91 H 18 106/64 99 04/26/19 23:24 36.7 C 94 H 16 103/69 100
[2019-04-27] MEDS: Heparin Adult LOW DOSE Wt-Based Dextrose 5% 25,000 units/500 mL IV SCH (13:30)
--- NOTE | 2019-04-27 14:56 | Infectious Disease Progress Nt ---
Date of Service April 27, 2019 Assessment & Plan (1) Empyema, left: 74-year-old male with chronic cholecystitis, cholangitis, choledocholithiasis, and now empyema of the left chest with ESBL producing E. coli. Now status post Pleurx catheter placement, patient improving. Would continue on ertapenem for now, change to oral quinolone upon discharge. Will follow. (2) Cholecystitis, chronic: (3) Infection due to ESBL-producing Escherichia coli: Subjective Pt. state he feels pretty good today with no significant SOB. He denies abdominal pain. Review of Systems Review of Systems: All systems reviewed & are unremarkable except as noted in HPI & below Physical Exam Constitutional: WD/WN, vitals as above well developed, + ill appearing and comfortable; no acute distress Eyes: PERRL, conjunctivae normal, anicteric sclerae ENMT: external ear and nose normal, oropharynx normal Neck: trachea midline, no thyromegaly neck nontender Respiratory: normal percussion and + dullness to percussion (Left base); no respiratory distress Auscultation: + diminished lung sounds (Left base) and + rhonchi Cardiovascular: Rate/Rhythm: regular rate and regular rhythm Heart Sounds: normal S1 and normal S2; no gallop, no murmur and no cardiac rub Vessels: normal peripheral pulses; no JVD Gastrointestinal (Abdomen): normal bowel sounds, soft, nontender, no h epatosplenomegaly Inspection/Auscultation: abdomen normal to inspection and normal bowel sounds Percussion/Palpation: + abdomen tender (Right upper quadrant); no hepatosplenomegaly and no abdominal mass Musculoskeletal: no cyanosis or clubbing, extremities motor strength 5/5 Spine: thoracic spine normal to inspection and lumbar spine normal to inspection; no cervical spinal tenderness Skin: no rashes, warm and dry normal turgor; no lesions Neurologic: patellar DTR's 2+ bilat, sensation intact moves all extremities and awake; no focal motor deficits Motor/Sensory: no sensory deficit Psychiatric: A+Ox3, euthymic affect Orientation: cooperative Lymphatic: no cervical or axillary lymphadenopathy no inguinal lymphadenopathy Results & Data Vital Signs (Past 12 Hours) Vital Signs Temp Pulse Pulse Resp BP BP Pulse Ox 04/27/19 12:00 37.0 C 89 18 78/39 L 81/42 L 98 04/27/19 07:18 36.7 C 92 H 18 110/64 96 04/27/19 03:57 36.5 C 91 H 18 106/64 99 Laboratory Results Short CBC 04/27/19 Range/Units 05:51 WBC 8.21 (4.8-10.8) K/uL Hgb 9.1 L (14.0-18.0) g/dL Hct 29.5 L (42-52) % Plt Count 220 (130-400) K/uL BMP 04/27/19 05:51 Sodium 138 Potassium 4.5 Chloride 103 Carbon Dioxide 29 BUN 41 H Creatinine 1.05 Glucose 108 H Calcium 8.4 L Diagnostic Findings Microbiology 04/25/19 08:10 Pleural Fluid Gram Stain - Final 04/25/19 08:10 Pleural Fluid Aerobic and Anaerobic Culture - Preliminary No growth to date. 04/16/19 Unknown Pleural Fluid Acid Fast Bacilli Smear - Final 04/16/19 Unknown Pleural Fluid Acid Fast Bacilli Culture - Preliminary No Acid-Fast Bacilli Isolated - Report 2, Additional Report to Follow. 04/27/19 07:50 Pleural Fluid Gram Stain - Final 04/21/19 08:50 Pleural Fluid Fungal Smear - Final 04/21/19 08:50 Pleural Fluid Fungal Culture - Preliminary No yeast or fungus isolated - Report 1, Additional Report to Follow. 04/21/19 08:50 Pleural Fluid Acid Fast Bacilli Smear - Final 04/21/19 08:50 Pleural Fluid Acid Fast Bacilli Culture - Preliminary No Acid-Fast Bacilli Isolated - Report 1, Additional Report to Follow. 04/06/19 13:30 Pleural Fluid Acid Fast Bacilli Smear - Final 04/06/19 13:30 Pleural Fluid Acid Fast Bacilli Culture - Preliminary No Acid-Fast Bacilli Isolated - Report 3, Additional Report to Follow. 04/21/19 08:50 Pleural Fluid Gram Stain - Final 04/21/19 08:50 Pleural Fluid Aerobic and Anaerobic Culture - Final No growth 04/16/19 Unknown Pleural Fluid Fungal Smear - Final 04/16/19 Unknown Pleural Fluid Fungal Culture - Preliminary No yeast or fungus isolated - Report 2, Additional report to follow. 04/16/19 20:57 Blood Aerobic Blood Culture - Final No growth in Aerobic bottle after 5 days. 04/16/19 20:57 Blood Anaerobic Blood Culture - Final No growth in Anaerobic bottle after 5 days. 04/16/19 21:01 Blood Aerobic Blood Culture - Final No growth in Aerobic bottle after 5 days. 04/16/19 21:01 Blood Anaerobic Blood Culture - Final No growth in Anaerobic bottle after 5 days. 04/16/19 Unknown Pleural Fluid Gram Stain - Final 04/16/19 Unknown Pleural Fluid Aerobic and Anaerobic Culture - Final Escherichia coli ESBL 04/12/19 13:57 Urine,Clean Catch Urine Culture - Final No growth - less than 1,000 colonies/mL. 04/08/19 08:28 Blood Aerobic Blood Culture - Final No growth in Aerobic bottle after 5 days. 04/08/19 08:28 Blood Anaerobic Blood Culture - Final No growth in Anaerobic bottle after 5 days. 04/08/19 08:38 Blood Aerobic Blood Culture - Final No growth in Aerobic bottle after 5 days. 04/08/19 08:38 Blood Anaerobic Blood Culture - Final No growth in Anaerobic bottle after 5 days. 04/07/19 08:33 Blood Aerobic Blood Culture - Final No growth in Aerobic bottle after 5 days. 04/07/19 08:33 Blood Anaerobic Blood Culture - Final No growth in Anaerobic bottle after 5 days. 04/07/19 08:44 Blood Aerobic Blood Culture - Final No growth in Aerobic bottle after 5 days. 04/07/19 08:44 Blood Anaerobic Blood Culture - Final No growth in Anaerobic bottle after 5 days. 04/05/19 20:47 Blood Aerobic Blood Culture - Final No growth in Aerobic bottle after 5 days. 04/05/19 20:47 Blood Anaerobic Blood Culture - Final Coag neg staph not lugdunensis 04/06/19 13:30 Pleural Fluid Gram Stain - Final 04/06/19 13:30 Pleural Fluid Aerobic and Anaerobic Culture - Final Escherichia coli ESBL 04/05/19 20:47 Blood Aerobic Blood Culture - Final No growth in Aerobic bottle after 5 days. 04/05/19 20:47 Blood Anaerobic Blood Culture - Final No growth in Anaerobic bottle after 5 days. XR chest 1V portable CLINICAL HISTORY: empyema dyspnea COMPARISON STUDY: 04/24/2019 FINDINGS: Unchanged position of the left basilar drainage catheter. Persistent components of pulmonary vascular congestion. Unchanged parenchymal infiltrative changes left lung base. No evidence of pneumothorax. IMPRESSION: No change compared to the prior study. Stable position of the left basilar drainage catheter combined with unchanging left basilar infiltrative change. The above report was generated using voice recognition software. It may contain grammatical, syntax or spelling errors.
--- NOTE | 2019-04-27 16:16 | Hospitalist Progress Note ---
Date of Service April 27, 2019 Assessment & Plan (1) Pneumonia: Likely has left pleural effusion with empyema Thoracic surgery has been consulted-thoracotomy and tube placement has been on hold now Status post left thoracotomy tube placement Management as per thoracic surgeon Has been on on Ertapenem IV Appreciate ID input and recommendation Discussed with thoracic surgery-the chest tube will be in place for some time Clinically better and continues to improve gradually No respiratory symptoms Chest x-ray did not show any worsening of left-sided effusion Has been on Ultram pending for empyema secondary to E. coli Plan to change to oral Levaquin on discharge Likely to be discharged tomorrow Poor nutrition Secondary to ongoing comorbid conditions including sepsis Dietitian consulted and will plan to give boost Will not start any parenteral nutrition as he has been improving Increased mobility Has been getting extra nutritional supplement Advised to increase mobility and participating physical therapy Will check albumin tomorrow Low blood pressure noted this morning Multifactorial including medications for the blood pressure and diuretics Diuretics is on hold We will give a small amount of normal saline to increase blood pressure Clinically asymptomatic Blood pressure seems to be stable and systolic more than 130 Will start torsemide 40 mg only in the morning Constipation Bowel has not moved for a while Has been getting laxatives and suppositories without much benefit Will try Fleet enema today Bowel movement yesterday (2) GI bleeding: Has been having GI bleed with melena and bloody stool at times Status post EGD-mild duodenitis but no evidence of active bleeding anywhere Status post ERCP-choledocholithiasis, extraction of stones and pus, stent placement and pancreatic duct No NSAID use and or aspirin for 5 days after the procedure - Hg stable no signs of active GI bleeding Heparin has been restarted Will start oral anticoagulation soon Has been on Coumadin since day before yesterday (3) Atrial fibrillation: anticoagulation held due to GI bleeding No more GI bleeding Has been back on heparin No acute cardiac symptoms Heart rate is controlled Started on an oral Coumadin INR is not yet therapeutic (4) Cholecystitis: CT of the abdomen did show cholelithiasis and acute cholecystitis MRI scan supported cholecystitis ERCP shows cholangitis with cholecystitis - no abdominal pain continue Ertapenem IV Appreciate surgery input and recommendation Likely cholecystectomy as an outpatient when medically stable (5) Septic shock: Septic shock secondary to community acquired pneumonia, cholangitis resolved but has been getting intravenous ertapenem for E. coli in empyema (6) S/P TAVR (transcatheter aortic valve replacement): no cardiac symptoms (7) Diabetes mellitus, type II: off Insulin drip and is being continued on basal/bolus therapy (8) Coronary artery disease: Medical management with aspirin, Lipitor. Losartan on hold in setting of MARISA. No acute coronary symptoms (9) Ischemic cardiomyopathy: As above. Patient is declining defibrillator placement Audit Manager on board (10) Acute kidney injury: Likely secondary to septic shock. crea stable (11) DVT (deep venous thrombosis): Anticoagulation is on hold due to GI bleed which required 2 unit of blood transfusion Started on intravenous heparin Poor nutrition secondary to multiple comorbid conditions Dietary consult-has been getting boost Increase ambulation Full code Likely to go to [facility] tomorrow Subjective 04/22 The patient was seen and examined in the telemetry unit He remains very weak and lethargic Denies any pain or shortness of breath at rest His improvement has been very very gradual and slow 04/23 Patient was seen and examined in telemetry unit He has been looking a bit better today Complains of profound weakness and decreased appetite Denies any acute symptoms 04/24 The patient was seen and examined in telemetry unit He was noted to have a very low blood pressure of systolic 78 this morning He remains generally weak but no other symptoms reported He was given 250 mL of normal saline bolus and Lasix Was kept on Hold 04/25 Patient was seen and examined in the telemetry unit He has been improving very gradually Complaint to have extreme weakness and has been refusing physical therapy at times Denies any other significant symptoms Advised to participate more in physical therapy if he wants to get better 04/26 The patient was seen and examined in telemetry unit He has been feeling a lot better today and denies any acute symptoms He is out of bed on a chair and participating in physical therapy 04/27 The patient was seen and examined in telemetry unit He has been improving reasonably for the last few days Has been able to stay out of bed for some time and getting physical therapy Denies any significant symptoms except with He wants to be discharged from the hospital Review of Systems Review of Systems: All systems reviewed and are unremarkable except as noted below Cardiovascular: + edema (Bilateral leg edema) Gastrointestinal: + bloating; no abdominal pain Physical Exam Physical Exam: No apparent distress at rest. Sitting on a chair outside bed Constitutional: well developed, + ill appearing, + frail appearing, well groomed, cooperative and comfortable; + not well nourished and no acute distress Eyes: PERRL, conjunctivae normal, anicteric sclerae ENMT: Mouth: no dentition abnormality Mallampati Class: III Neck: trachea midline, no thyromegaly normal visual inspection and trachea midline; neck nontender Respiratory: normal respiratory effort; no respiratory distress, no labored breathing and does not use accessory muscles Auscultation: + diminished lung sounds (Diminished L side ), + crackles (Minimal crackles at the right base and decreased breath sounds left lower lung) and + rhonchi; no rales and no wheezes Cardiovascular: Rate/Rhythm: + irregularly irregular; + abnormal rate and + abnormal rhythm Heart Sounds: normal S1 and normal S2 Extremities: + edema (Trace bilateral lower extremities) Gastrointestinal (Abdomen): Inspection/Auscultation: abdomen normal to inspection, + abdomen distended, normal bowel sounds (Diminished) and + hypoactive bowel sounds Percussion/Palpation: abdomen soft; abdomen nontender, no guarding, no hepatosplenomegaly and no abdominal mass Musculoskeletal: Spine: thoracic spine normal to inspection and lumbar spine normal to inspection; no cervical spinal tenderness Skin: no rashes, warm and dry normal turgor; no lesions and no jaundice Neurologic: PERRL, EOMI, accommodation nl, no face palsy, no dysarthria moves all extremities and awake; no focal motor deficits Motor/Sensory: no asterixis and no sensory deficit Psychiatric: A+Ox3, euthymic affect Orientation: cooperative Affect: + flat affect Lymphatic: no cervical or axillary lymphadenopathy + lymphedema (trace bilateral LE edema ); no inguinal lymphadenopathy Results & Data Vital Signs (Past 12 Hours) Vital Signs Temp Pulse Resp BP BP Pulse Ox 04/27/19 15:19 91/51 L 04/27/19 15:17 36.9 C 88 16 74/36 L 100 04/27/19 12:00 37.0 C 89 18 78/39 L 81/42 L 98 04/27/19 07:18 36.7 C 92 H 18 110/64 96 Laboratory Results Short CBC 04/27/19 Range/Units 05:51 WBC 8.21 (4.8-10.8) K/uL Hgb 9.1 L (14.0-18.0) g/dL Hct 29.5 L (42-52) % Plt Count 220 (130-400) K/uL BMP 04/27/19 05:51 Sodium 138 Potassium 4.5 Chloride 103 Carbon Dioxide 29 BUN 41 H Creatinine 1.05 Glucose 108 H Calcium 8.4 L Medications Administered Current Inpatient Medications Acetaminophen (Tylenol) 500 mg PO Q4 PRN PRN Reason: Fever Or Pain Stop: 05/05/19 23:15 Last Admin: 04/16/19 18:12 Dose: 500 mg Documented by: Aspirin (Ecotrin Ectab) 81 mg PO QAM [facility] Stop: 05/17/19 08:59 Last Admin: 04/27/19 08:34 Dose: 81 mg Documented by: Atorvastatin Calcium (Lipitor) 40 mg PO HS [facility] Stop: 05/06/19 20:59 Last Admin: 04/26/19 20:05 Dose: 40 mg Documented by: Buspirone HCl (Buspar) 2.5 mg PO TID PRN PRN Reason: Anxiety Stop: 05/06/19 01:42 Last Admin: 04/20/19 09:50 Dose: 2.5 mg Documented by: Dextrose (Dextrose 50%) 25 - 50 ml IV UD PRN; Protocol PRN Reason: Hypoglycemia Protocol Stop: 05/05/19 23:15 Last Admin: 04/08/19 23:57 Dose: 50 ml Documented by: Docusate Sodium (Colace) 100 mg PO BID PRN PRN Reason: Constipation Stop: 05/05/19 23:15 Last Admin: 04/26/19 08:20 Dose: 100 mg Documented by: Gabapentin (Neurontin) 100 mg PO TID [facility] Stop: 05/06/19 08:59 Last Admin: 04/27/19 13:29 Dose: 100 mg Documented by: Glucagon (Glucagen) 1 mg SQ UD PRN; Protocol PRN Reason: Hypoglycemia Protocol Stop: 05/05/19 23:15 Glucose (Glucose 40%) 15 - 30 gm PO UD PRN; Protocol PRN Reason: Hypoglycemia Protocol Stop: 05/05/19 23:15 Glucose (Dex4 Glucose) 4 - 8 tabs PO UD PRN; Protocol PRN Reason: Hypoglycemia Protocol Stop: 05/05/19 23:15 Sodium Chloride (Nss) 250 mls @ 15 mls/hr IV .[id number] PRN PRN Reason: For Transfusion Stop: 05/11/19 10:18 Last Infusion: 04/24/19 08:32 Dose: Infused Documented by: Ertapenem 1,000 mg/ Sodium (Chloride) 60 mls @ 100 mls/hr IV Q24H [facility] Stop: 04/28/19 16:29 Last Infusion: 04/26/19 15:57 Dose: Infused Documented by: Heparin Sodium/Dextrose (Heparin Sodium/Dextrose) 25,000 units in 500 mls @ 27 mls/hr IV .[id number] [facility]; Protocol Stop: 05/19/19 18:44 Last Titration: 04/27/19 14:57 Dose: 1,350 units/hr, 27 mls/hr Documented by: Insulin Aspart (Novolog Flexpen) 0 units SC [facility] Stop: 05/10/19 11:29 Last Admin: 04/27/19 12:37 Dose: 23 units Documented by: Insulin Glargine (Lantus Solostar Pen) 0 units SC [facility]; Protocol Stop: 05/11/19 20:59 Last Admin: 04/26/19 21:36 Dose: 10 units Documented by: Insulin Glargine (Lantus Solostar Pen) 0 units SC [facility]; Protocol Stop: 05/10/19 08:14 Last Admin: 04/27/19 08:36 Dose: 30 units Documented by: Magnesium Oxide (Mag-Ox) 400 mg PO [facility] Stop: 05/06/19 08:59 Last Admin: 04/27/19 08:35 Dose: 400 mg Documented by: Metoprolol Tartrate (Lopressor) 25 mg PO BID [facility] Stop: 05/25/19 20:59 Last Admin: 04/27/19 08:32 Dose: 25 mg Documented by: Miscellaneous (Carbohydrates For Hypoglycemia) 15 - 30 gm PO UD PRN PRN Reason: Hypoglycemia Treatment Stop: 05/05/19 23:15 Last Admin: 04/20/19 07:26 Dose: 15 gm Documented by: Miscellaneous Information (Consult Glycemic Management Pharmacy) 1 ea N/A UD PRN; Protocol PRN Reason: Consult Stop: 05/05/19 23:47 Morphine Sulfate (Morphine Sulfate) 2 mg IV Q12H PRN PRN Reason: Severe Pain Stop: 05/02/19 17:53 Last Admin: 04/23/19 23:27 Dose: 2 mg Documented by: Oxycodone HCl (Roxicodone Immediate Rel) 5 mg PO Q6H PRN PRN Reason: Pain Stop: 04/30/19 20:09 Last Admin: 04/22/19 22:50 Dose: 5 mg Documented by: Pantoprazole Sodium (Protonix) 40 mg PO QAM [facility] Stop: 05/10/19 08:59 Last Admin: 04/27/19 08:34 Dose: 40 mg Documented by: Polyethylene Glycol (Miralax Powder Packet) 17 gm PO DAILY PRN PRN Reason: Constipation Stop: 05/05/19 23:15 Last Admin: 04/26/19 08:20 Dose: 17 gm Documented by: Senna/Docusate Sodium (Senokot S) 1 tab PO [facility] Stop: 05/22/19 08:59 Last Admin: 04/27/19 08:44 Dose: Not Given Documented by: Sennosides (Senokot) 8.6 mg PO DAILY PRN PRN Reason: Constipation Stop: 05/05/19 23:15 Last Admin: 04/20/19 09:50 Dose: 8.6 mg Documented by: [facility] ([facility]) [facility] Stop: 05/18/19 12:29 Last Admin: 04/27/19 08:35 Dose: 25 mg Documented by: Torsemide (Demadex) 40 mg PO QAM [facility] Stop: 05/18/19 12:29 Last Admin: 04/27/19 08:34 Dose: 40 mg Documented by: Torsemide (Demadex) 20 mg PO QPM [facility] Stop: 05/18/19 20:59 Last Admin: 04/23/19 20:23 Dose: 20 mg Documented by: Warfarin Sodium (Coumadin) 5 mg PO DAILY@1600 [facility] Stop: 05/28/19 15:59 Zolpidem Tartrate (Ambien) 5 mg PO HS PRN PRN Reason: Sleep Stop: 05/10/19 18:35 Last Admin: 04/21/19 21:09 Dose: 5 mg Documented by:
[2019-04-27] MEDS: CARBOHYDRATES FOR HYPOGLYCEMIA PO PRN (16:19)
[2019-04-27] MEDS: ERTAPENEM SODIUM 1,000 MG in SODIUM CHLORIDE 0.9% 50 ML IV SCH (16:40)
[2019-04-27] MEDS: WARFARIN SOD 7.5 MG TAB PO SCH (16:41)
[2019-04-27] MEDS: ACETAMINOPHEN 500 MG TAB PO PRN (21:02)
[2019-04-27] MEDS: ZOLPIDEM TARTRATE 5 MG TAB PO PRN (21:03)
[2019-04-27] MEDS: ATORVASTATIN 40 MG TAB PO SCH (21:03)
[2019-04-28 05:46] LABS: Basophils # (auto) 0.05 K/uL (0-0.2); Basophils % (auto) 0.5 %; Eosinophils # (auto) 0.17 K/uL (0-0.5); Eosinophils % (auto) 1.8 %; Hematocrit (blood only) 29.3 % (42-52); Immature Granulocytes # (auto) 0.02 K/uL (0.00-0.02); Immature Granulocytes % (auto) 0.2 %; Lymphocytes # (auto) 0.67 K/uL (1.2-3.4); Lymphocytes % (auto) 7.2 %; Mean Corpuscular Hgb Conc 30.7 g/dL (32-36); Mean Corpuscular Volume 89.1 fL (80-100); Mean Platelet Volume 10.3 fL (7.4-10.4); Monocytes # (auto) 0.78 K/uL (0.11-0.59); Monocytes % (auto) 8.4 %; Neutrophils # (auto) 7.63 K/uL (1.4-6.5); Neutrophils % (auto) 81.9 %; Platelet Count 232 K/uL (130-400); RDW Coefficient of Variation 19.6 % (11.5-14.5); RDW Standard Deviation 63.7 fL (36.4-46.3); Red Blood Count 3.29 M/uL (4.7-6.1); White Blood Count 9.32 K/uL (4.8-10.8)
[2019-04-28 06:04] LABS: INR 1.3 (0.9-1.1); Prothrombin Time 13.1 Seconds (9.0-12.0)
[2019-04-28 06:19] LABS: BUN Creatinine Ratio 36.6 (10-20); Calcium 8.2 mg/dl (8.5-10.1); Creatinine Clr Calc Pharmacy 64.3 ml/min; Est GFR (Non-African American) 60.4; Magnesium 2.5 mg/dl (1.8-2.4); Phosphorus 3.6 mg/dl (2.5-4.9); Potassium 4.6 mmol/L (3.5-5.1)
[2019-04-28 06:34] LABS: Partial Thromboplastin Ratio 1.8
[2019-04-28 06:41] LABS: Partial Thromboplastin Time 47.7 Seconds (21.0-31.0)
[2019-04-28] MEDS: METOPROLOL TARTRATE 25 MG TAB PO SCH (08:07)
[2019-04-28] MEDS: PANTOprazole 40 MG TAB PO SCH (08:15)
[2019-04-28] MEDS: SPIRONOLACTONE 25 MG TAB PO SCH (08:15)
[2019-04-28] MEDS: MAGNESIUM OXIDE 400 MG TAB PO SCH (08:15)
[2019-04-28] MEDS: TORSEMIDE 10 MG TAB PO SCH (08:16)
[2019-04-28] MEDS: DOCUSATE SODIUM/SENNA 50/8.6MG TAB PO SCH (08:16)
[2019-04-28] MEDS: GABAPENTIN 100 MG CAP PO SCH ×2 (08:16→13:43)
[2019-04-28] MEDS: ASPIRIN 81 MG ECTAB PO SCH (08:17)
[2019-04-28] MEDS: INSULIN ASPART 100 UNITS/ML 3 ML PEN SC SCH ×2 (08:18→12:08)
[2019-04-28] MEDS: INSULIN GLARGINE SOLOSTAR 100 UNITS/ML 3 ML PEN SC SCH (08:18)
--- NOTE | 2019-04-28 08:52 | Surgery Progress Note ---
Date of Service April 28, 2019 Assessment & Plan (1) Empyema, left: -pt. had pleurex placed as previously noted with utilization of [facility] 2 protocol -culture grew a resistant E.coli -continuediimprovement has been noted radiographically and clinically -WBC noted to be in normal range today -fluid was recultured 04/25 and no organisms noted on gram stain did not show any organisms; culture is (-) to date for growth -fluid re-cultured again on 04/27--gram stain showed organisms and thus far culture shows no growth -fluid re-cultured today -continue daily drainage (was drained for 75 cc today) -plan noted for d/c to [facility] with continued antibiotics -at time of d/c pleurex should be drained daily -we will call pt. for a 1-2 week f/u appt. with repeat CXR preceeding appt. Subjective Pt. states he feels good today and notes his breathing feels as though it has improved.with He denies abdominal pain or N/V. No fevers, shakes, chills. No CP. Physical Exam Constitutional: no acute distress Respiratory: no respiratory distress and no labored breathing BS are decreased at bases, L>R; no wheezing Gastrointestinal (Abdomen): Percussion/Palpation: abdomen soft non-tender to palpation Results & Data Vital Signs (Past 12 Hours) Vital Signs Temp Pulse Pulse Resp BP BP Pulse Ox 04/28/19 07:51 36.8 C 86 18 90/51 L 96 04/28/19 06:21 83 04/28/19 03:53 36.7 C 85 19 98/49 L 97 04/27/19 23:46 37.0 C 94 H 19 107/45 L 96 04/27/19 21:09 86 135/72 96
[2019-04-28] MEDS: Heparin Adult LOW DOSE Wt-Based Dextrose 5% 25,000 units/500 mL IV SCH (09:53)
[2019-04-28] MEDS ORDERED: levoFLOXacin 500 MG TAB PO SCH (11:00)
--- NOTE | 2019-04-28 12:43 | Hospitalist Progress Note ---
Date of Service April 28, 2019 Assessment & Plan (1) Pneumonia: Likely has left pleural effusion with empyema Thoracic surgery has been consulted-thoracotomy and tube placement has been on hold now Status post left thoracotomy tube placement Management as per thoracic surgeon Has been on on Ertapenem IV Appreciate ID input and recommendation Discussed with thoracic surgery-the chest tube will be in place for some time Clinically better and continues to improve gradually No respiratory symptoms Chest x-ray did not show any worsening of left-sided effusion Has been on Ultram pending for empyema secondary to E. coli Plan to change to oral Levaquin on discharge Discussed with thoracic surgery-we will have drainage daily and then outpatient appointment will be arranged by thoracic surgery Discussed with ID-we will put him on oral Levaquin for 14 days more Clinically a lot better and repeat Gram stain and culture of the pleural fluid came back negative We will discharge him today to [facility] to continue physical therapy Poor nutrition Secondary to ongoing comorbid conditions including sepsis Dietitian consulted and will plan to give boost Will not start any parenteral nutrition as he has been improving Increased mobility Has been getting extra nutritional supplement Advised to increase mobility and participating physical therapy Will check albumin tomorrow Low blood pressure noted this morning Multifactorial including medications for the blood pressure and diuretics Diuretics is on hold We will give a small amount of normal saline to increase blood pressure Clinically asymptomatic Blood pressure seems to be stable and systolic more than 130 Will start torsemide 40 mg only in the morning Constipation Bowel has not moved for a while Has been getting laxatives and suppositories without much benefit Will try Fleet enema today Bowel movement yesterday (2) GI bleeding: Has been having GI bleed with melena and bloody stool at times Status post EGD-mild duodenitis but no evidence of active bleeding anywhere Status post ERCP-choledocholithiasis, extraction of stones and pus, stent placement and pancreatic duct No NSAID use and or aspirin for 5 days after the procedure - Hg stable no signs of active GI bleeding Heparin has been restarted Will start oral anticoagulation soon Has been on Coumadin since day before yesterday INR is not therapeutic-we will go slow with history of GI bleed PT/INR needs to be checked tomorrow that is one 04/29 and dose Coumadin accordingly INR is expected to be therapeutic or more as because he will be on Levaquin (3) Atrial fibrillation: anticoagulation held due to GI bleeding No more GI bleeding Has been back on heparin No acute cardiac symptoms Heart rate is controlled Started on an oral Coumadin INR is not yet therapeutic-dose needs to be adjusted as long as he is on Levaquin (4) Cholecystitis: CT of the abdomen did show cholelithiasis and acute cholecystitis MRI scan supported cholecystitis ERCP shows cholangitis with cholecystitis - no abdominal pain continue Ertapenem IV Appreciate surgery input and recommendation Likely cholecystectomy as an outpatient when medically stable (5) Septic shock: Septic shock secondary to community acquired pneumonia, cholangitis resolved but has been getting intravenous ertapenem for E. coli in empyema (6) S/P TAVR (transcatheter aortic valve replacement): no cardiac symptoms (7) Diabetes mellitus, type II: off Insulin drip and is being continued on basal/bolus therapy As per pharmacist (8) Coronary artery disease: Medical management with aspirin, Lipitor. Losartan on hold in setting of MARISA. No acute coronary symptoms (9) Ischemic cardiomyopathy: As above. Patient is declining defibrillator placement Tube Draw Helper on board (10) Acute kidney injury: Likely secondary to septic shock. crea stable (11) DVT (deep venous thrombosis): Anticoagulation is on hold due to GI bleed which required 2 unit of blood transfusion Started on intravenous heparin Poor nutrition secondary to multiple comorbid conditions Dietary consult-has been getting boost Increase ambulation Full code We will discharge him today to [facility] Subjective 04/22 The patient was seen and examined in the telemetry unit He remains very weak and lethargic Denies any pain or shortness of breath at rest His improvement has been very very gradual and slow 04/23 Patient was seen and examined in telemetry unit He has been looking a bit better today Complains of profound weakness and decreased appetite Denies any acute symptoms 04/24 The patient was seen and examined in telemetry unit He was noted to have a very low blood pressure of systolic 78 this morning He remains generally weak but no other symptoms reported He was given 250 mL of normal saline bolus and Lasix Was kept on Hold 04/25 Patient was seen and examined in the telemetry unit He has been improving very gradually Complaint to have extreme weakness and has been refusing physical therapy at times Denies any other significant symptoms Advised to participate more in physical therapy if he wants to get better 04/26 The patient was seen and examined in telemetry unit He has been feeling a lot better today and denies any acute symptoms He is out of bed on a chair and participating in physical therapy 04/27 The patient was seen and examined in telemetry unit He has been improving reasonably for the last few days Has been able to stay out of bed for some time and getting physical therapy Denies any significant symptoms except with He wants to be discharged from the hospital 04/28 Patient was seen and examined in telemetry unit He has been a lot better today Out of bed on a chair and getting physical therapy Leg swelling has been improving and denies any problem with urine and her bowel habit Review of Systems Review of Systems: All systems reviewed and are unremarkable except as noted below Cardiovascular: + edema (Bilateral leg edema) Gastrointestinal: no abdominal pain Neurologic: Generalized weakness Physical Exam Physical Exam: No apparent distress at rest Constitutional: well developed, + ill appearing, + frail appearing, well groomed, cooperative and comfortable; + not well nourished and no acute distress Eyes: PERRL, conjunctivae normal, anicteric sclerae ENMT: Mouth: no dentition abnormality Mallampati Class: III Neck: trachea midline, no thyromegaly normal visual inspection and trachea midline; neck nontender Respiratory: normal respiratory effort; no respiratory distress, no labored breathing and does not use accessory muscles Auscultation: + diminished lung sounds (Diminished L side ), + crackles (Minimal crackles at the right base and decreased breath sounds left lower lung) and + rhonchi; no rales and no wheezes Cardiovascular: Rate/Rhythm: + irregularly irregular; + abnormal rate and + abnormal rhythm Heart Sounds: normal S1 and normal S2 Extremities: + edema (Trace to 1+ bilateral lower extremities) Gastrointestinal (Abdomen): Inspection/Auscultation: abdomen normal to inspection, + abdomen distended, normal bowel sounds (Diminished) and + hypoactive bowel sounds Percussion/Palpation: abdomen soft; abdomen nontender, no guarding, no hepatosplenomegaly and no abdominal mass Musculoskeletal: Spine: thoracic spine normal to inspection and lumbar spine normal to inspection; no cervical spinal tenderness No acute arthritis in any joints Skin: no rashes, warm and dry normal turgor; no lesions and no jaundice Neurologic: PERRL, EOMI, accommodation nl, no face palsy, no dysarthria moves all extremities and awake; no focal motor deficits Motor/Sensory: no asterixis and no sensory deficit Generalized weakness Psychiatric: A+Ox3, euthymic affect Orientation: cooperative Affect: + flat affect Lymphatic: no cervical or axillary lymphadenopathy + lymphedema (trace bilateral LE edema ); no inguinal lymphadenopathy Results & Data Vital Signs (Past 12 Hours) Vital Signs Temp Pulse Pulse Resp BP Pulse Ox 04/28/19 11:49 36.8 C 74 16 126/63 94 04/28/19 07:51 36.8 C 86 18 90/51 L 96 04/28/19 06:21 83 04/28/19 03:53 36.7 C 85 19 98/49 L 97 Laboratory Results Short CBC 04/28/19 Range/Units 05:26 WBC 9.32 (4.8-10.8) K/uL Hgb 9.0 L (14.0-18.0) g/dL Hct 29.3 L (42-52) % Plt Count 232 (130-400) K/uL BMP 04/28/19 05:26 Sodium 137 Potassium 4.6 Chloride 102 Carbon Dioxide 30 BUN 43 H Creatinine 1.18 Glucose 125 H Calcium 8.2 L Medications Administered Current Inpatient Medications Acetaminophen (Tylenol) 500 mg PO Q4 PRN PRN Reason: Fever Or Pain Stop: 05/05/19 23:15 Last Admin: 04/27/19 21:02 Dose: 500 mg Documented by: [facility]ir[facility] ([facility]ab) [facility] Stop: 05/17/19 08:59 Last Admin: 04/28/19 08:17 Dose: 81 mg Documented by: Atorvastatin Calcium (Lipitor) 40 mg PO [facility] Stop: 05/06/19 20:59 Last Admin: 04/27/19 21:03 Dose: 40 mg Documented by: Buspirone HCl (Buspar) 2.5 mg PO TID PRN PRN Reason: Anxiety Stop: 05/06/19 01:42 Last Admin: 04/20/19 09:50 Dose: 2.5 mg Documented by: Dextrose (Dextrose 50%) 25 - 50 ml IV UD PRN; Protocol PRN Reason: Hypoglycemia Protocol Stop: 05/05/19 23:15 Last Admin: 04/08/19 23:57 Dose: 50 ml Documented by: Docusate Sodium (Colace) 100 mg PO BID PRN PRN Reason: Constipation Stop: 05/05/19 23:15 Last Admin: 04/26/19 08:20 Dose: 100 mg Documented by: Gabapentin (Neurontin) 100 mg PO TID [facility] Stop: 05/06/19 08:59 Last Admin: 04/28/19 08:16 Dose: 100 mg Documented by: Glucagon (Glucagen) 1 mg SQ UD PRN; Protocol PRN Reason: Hypoglycemia Protocol Stop: 05/05/19 23:15 Glucose (Glucose 40%) 15 - 30 gm PO UD PRN; Protocol PRN Reason: Hypoglycemia Protocol Stop: 05/05/19 23:15 Glucose (Dex4 Glucose) 4 - 8 tabs PO UD PRN; Protocol PRN Reason: Hypoglycemia Protocol Stop: 05/05/19 23:15 Sodium Chloride (Nss) 250 mls @ 15 mls/hr IV .[id number] PRN PRN Reason: For Transfusion Stop: 05/11/19 10:18 Last Infusion: 04/24/19 08:32 Dose: Infused Documented by: Heparin Sodium/Dextrose (Heparin Sodium/Dextrose) 25,000 units in 500 mls @ 27 mls/hr IV .[id number] [facility]; Protocol Stop: 05/19/19 18:44 Last Admin: 04/28/19 09:53 Dose: 1,350 units/hr, 27 mls/hr Documented by: Insulin Aspart (Novolog Flexpen) 0 units SC [facility] Stop: 05/10/19 11:29 Last Admin: 04/28/19 12:08 Dose: 23 units Documented by: Insulin Glargine (Lantus Solostar Pen) 0 units SC [facility]; Protocol Stop: 05/11/19 20:59 Last Admin: 04/27/19 21:07 Dose: 10 units Documented by: Insulin Glargine (Lantus Solostar Pen) 0 units SC [facility]; Protocol Stop: 05/10/19 08:14 Last Admin: 04/28/19 08:18 Dose: 30 units Documented by: Levofloxacin (Levaquin) 500 mg PO DAILY@1100 [facility]; Protocol Stop: 05/05/19 10:59 Last Admin: 04/28/19 11:46 Dose: 500 mg Documented by: Magnesium Oxide (Mag-Ox) 400 mg PO QAM [facility] Stop: 05/06/19 08:59 Last Admin: 04/28/19 08:15 Dose: 400 mg Documented by: Metoprolol Tartrate (Lopressor) 25 mg PO BID [facility] Stop: 05/25/19 20:59 Last Admin: 04/28/19 08:07 Dose: Not Given Documented by: Miscellaneous (Carbohydrates For Hypoglycemia) 15 - 30 gm PO UD PRN PRN Reason: Hypoglycemia Treatment Stop: 05/05/19 23:15 Last Admin: 04/27/19 16:19 Dose: 15 gm Documented by: Miscellaneous Information (Consult Glycemic Management Pharmacy) 1 ea N/A UD PRN; Protocol PRN Reason: Consult Stop: 05/05/19 23:47 Morphine Sulfate (Morphine Sulfate) 2 mg IV Q12H PRN PRN Reason: Severe Pain Stop: 05/02/19 17:53 Last Admin: 04/23/19 23:27 Dose: 2 mg Documented by: Oxycodone HCl (Roxicodone Immediate Rel) 5 mg PO Q6H PRN PRN Reason: Pain Stop: 04/30/19 20:09 Last Admin: 04/22/19 22:50 Dose: 5 mg Documented by: Pantoprazole [facility]odium (Protonix) [facility] Stop: 05/10/19 08:59 Last Admin: 04/28/19 08:15 Dose: 40 mg Documented by: Polyethylene Glycol (Miralax Powder Packet) 17 gm PO DAILY PRN PRN Reason: Constipation Stop: 05/05/19 23:15 Last Admin: 04/26/19 08:20 Dose: 17 gm Documented by: Senna/Docusate Sodium (Senokot S) 1 tab PO QAM [facility] Stop: 05/22/19 08:59 Last Admin: 04/28/19 08:16 Dose: 1 tab Documented by: Sennosides (Senokot) 8.6 mg PO DAILY PRN PRN Reason: Constipation Stop: 05/05/19 23:15 Last Admin: 04/20/19 09:50 Dose: 8.6 mg Documented by: Spironolactone (Aldactone) 25 mg PO QAM [facility] Stop: 05/18/19 12:29 Last Admin: 04/28/19 08:15 Dose: 25 mg Documented by: Torsemide (Demadex) 40 mg PO QAM [facility] Stop: 05/18/19 12:29 Last Admin: 04/28/19 08:16 Dose: 40 mg Documented by: Torsemide (Demadex) 20 mg PO QPM [facility] Stop: 05/18/19 20:59 Last Admin: 04/23/19 20:23 Dose: 20 mg Documented by: Warfarin Sodium (Coumadin) 5 mg PO DAILY@1600 [facility] Stop: 05/28/19 15:59 Zolpidem Tartrate (Ambien) 5 mg PO HS PRN PRN Reason: Sleep Stop: 05/10/19 18:35 Last Admin: 04/27/19 21:03 Dose: 5 mg Documented by:
--- NOTE | 2019-04-28 13:29 | Pharmacy Report ---
Pharmacy Glycemic Short Note 2 - Date of Service April 28, 2019 - Glycemic Short BSG Results (Last 24 hours): 04/27/19 04/27/19 04/27/19 16:12 16:13 16:40 Glucose POC Glucose 67 L* 68 L* 92 04/27/19 04/28/19 04/28/19 20:28 05:26 07:27 Glucose 125 H POC Glucose 198 H 164 H 04/28/19 11:28 Glucose POC Glucose 177 H Glycemic Management Discharge Recommendations: * Lantus 30u QAM, Lantus 10u HS * Novolog 12u TIDM, with further titrations per outpt provider. Mr Bustillo is prone to carb-heavy meals and would thus benefit from a mealtime insulin. Rather than just lantus + PO antidiabetic medications * D/c glipizide
[2019-04-28] MEDS ORDERED: ENOXAPARIN 100 MG/1ML SYR SQ SCH (13:30)
[2019-04-28] MEDS ORDERED: WARFARIN SOD 5 MG TAB PO SCH (16:00)
--- NOTE | 2019-04-28 17:29 | Discharge Summary ---
Date of Service April 28, 2019 Admission HPI Per Admitting Provider Patient is a 74-year-old male with complex medical history with history of CHF with EF 25 to 30%, chronic atrial fibrillation on Coumadin, diabetes mellitus on insulin therapy, coronary artery disease S/P CABG, history of aortic valve stenosis S/P TAVR, CVA, ischemic cardiomyopathy, spinal stenosis, dyslipidemia, CKD III, carotid artery stenosis, hypertension and other problems presents with history of worsening shortness of breath, cough, generalized weakness, decreased appetite, fever and chills, increased leg swelling. Patient states he has chronic cough which has been gradually worsening since last 2 days. Cough is productive with whitish expectoration. He noted to have fever and chills today. He developed significant generalized weakness leading to inability to walk, having balance issues and has been using a walker to ambulate. Reports decreased appetite. He noted to have increased bilateral lower extremity leg swelling which has been progressively worsening as well. Shortness of breath has been progressively worsening even with minimal exertion. He was recently monitored with ZIO patch as outpatient and was recommended to have defibrillator placement by his line runner but currently patient is not interested for any procedure. He was found to be hypotensive SBP in 60s while in ED. Despite receiving 3 L of IV fluids in ED patient has significant hypotension. Chest x- ray suggestive of left lower lobe pneumonia. Blood pressure usually runs low with SBP in 80s as per patient. On recommendations from weight control engineer, patient will be started on IV pressors. Denies any history of chest pain, palpitations, dizziness, diaphoresis, hemoptysis, fall, head trauma, headache, change in vision, nausea, vomiting, abdominal pain, diarrhea, dysuria, recent change in medications. Admission Exam Per Admitting Provider Physical Exam: Physical Exam: Vitals signs as noted above General Appearance:Chronic ill appearing, no apparent distress Head: normocephalic, Atraumatic Eyes: normal inspection, EOMI Neck: supple, Trachea midline Respiratory/Chest: Normal breath sounds, Left basal crackles Cardiovascular: Irregularly irregular rhythm, + systolic murmur, +Tachycardia Abdomen/GI:Soft, Non tender, Bowel sounds present Extremities/Musculoskelatal:normal inspection, 3+ B/L LE edema Neurologic/Psych:AAOX3, grossly no focal neurological deficits Skin: normal color, warm Principal Diagnosis Sepsis secondary to pneumonia with empyema of the left lung, status post Pleurx catheter placement, choledocholithiasis with cholecystitis status post ERCP with stent placement, ischemic cardiomyopathy, atrial fibrillation, type 2 diabetes on insulin Discharge Exam Constitutional well developed, + ill appearing, + frail appearing, well groomed, cooperative and comfortable; + not well nourished and no acute distress Eyes PERRL, conjunctivae normal, anicteric sclerae ENMT Mouth: no dentition abnormality Mallampati Class: III Neck trachea midline, no thyromegaly normal visual inspection and trachea midline; neck nontender Respiratory normal respiratory effort; no respiratory distress, no labored breathing and does not use accessory muscles Auscultation: + diminished lung sounds (Diminished L side ), + crackles (Minimal crackles at the right base and decreased breath sounds left lower lung) and + rhonchi; no rales and no wheezes Cardiovascular Rate/Rhythm: + irregularly irregular; + abnormal rate and + abnormal rhythm Heart Sounds: normal S1 and normal S2 Extremities: + edema (Trace to 1+ bilateral lower extremities) Gastrointestinal (Abdomen) Inspection/Auscultation: abdomen normal to inspection, + abdomen distended, normal bowel sounds (Diminished) and + hypoactive bowel sounds Percussion/Palpation: abdomen soft; abdomen nontender, no guarding, no hepatosplenomegaly and no abdominal mass Musculoskeletal Spine: thoracic spine normal to inspection and lumbar spine normal to inspection; no cervical spinal tenderness Skin no rashes, warm and dry normal turgor; no lesions and no jaundice Neurologic PERRL, EOMI, accommodation nl, no face palsy, no dysarthria moves all extremities and awake; no focal motor deficits Motor/Sensory: no asterixis and no sensory deficit Psychiatric A+Ox3, euthymic affect Orientation: cooperative Affect: + flat affect Lymphatic no cervical or axillary lymphadenopathy + lymphedema (trace bilateral LE edema ); no inguinal lymphadenopathy Discharge Data Allergies Allergy/AdvReac Type Severity Reaction Status Date / Time lisinopril AdvReac Intermediate COUGH Verified 04/05/19 21:24 Consultations 04/05/19 21:15 ED Decision to Admit Stat 04/05/19 23:16 Consult Case Management - Discharge Planning Routine Consult Floorworker Distributor Routine 04/06/19 12:38 Consult Cardiology Routine 04/07/19 09:58 Consult Thoracic Surgery Routine 04/08/19 06:33 Consult Gastroenterology Routine 04/08/19 08:34 Consult General Surgery Routine 04/16/19 10:04 Consult Infectious Diseases Routine Procedures Performed Operation Date: 04/09/19 07:00 Actual Procedures p Endoscopic Ultrasonography Upper(Not Applicable) - Ehsanduyen Santy ponce Endoscopic Retrograde Cholangiopancreato(Not Applicable) - Royce ponce Esophagogastroduodenoscopy(Not Applicable) - Royce Madera Operation Date: 04/10/19 09:35 <No data on this case meets the specified criteria> Ordered Studies 04/07/19 10:24 CT chest wo con Urgent 04/08/19 06:25 CT abd pelvis wo con Urgent 04/08/19 09:04 MR MRCP Urgent 04/09/19 13:39 US upper EUS PACS images Routine 04/09/19 14:00 FL ERCP biliary ductal Routine 04/16/19 07:53 CT chest wo con Stat 04/17/19 10:56 CT abd pelvis wo con Routine 04/20/19 08:00 CT chest wo con Routine Hospital Course (1) Pneumonia: Likely has left pleural effusion with empyema Thoracic surgery has been consulted-thoracotomy and tube placement has been on hold now Status post left thoracotomy tube placement Management as per thoracic surgeon Has been on on Ertapenem IV Appreciate ID input and recommendation Discussed with thoracic surgery-the chest tube will be in place for some time Clinically better and continues to improve gradually No respiratory symptoms Chest x-ray did not show any worsening of left-sided effusion Has been on Ultram pending for empyema secondary to E. coli Plan to change to oral Levaquin on discharge Discussed with thoracic surgery-we will have drainage daily and then outpatient appointment will be arranged by thoracic surgery Discussed with ID-we will put him on oral Levaquin for 14 days more Clinically a lot better and repeat Gram stain and culture of the pleural fluid came back negative [facility] Poor nutrition Secondary to ongoing comorbid conditions including sepsis Dietitian consulted and will plan to give boost Will not start any parenteral nutrition as he has been improving Increased mobility Has been getting extra nutritional supplement Advised to increase mobility and participating physical therapy Will check albumin tomorrow Low blood pressure noted this morning Multifactorial including medications for the blood pressure and diuretics Diuretics is on hold We will give a small amount of normal saline to increase blood pressure Clinically asymptomatic Blood pressure seems to be stable and systolic more than 130 Will start torsemide 40 mg only in the morning Constipation Bowel has not moved for a while Has been getting laxatives and suppositories without much benefit Will try Fleet enema today Bowel movement yesterday (2) GI bleeding: Has been having GI bleed with melena and bloody stool at times Status post EGD-mild duodenitis but no evidence of active bleeding anywhere Status post ERCP-choledocholithiasis, extraction of stones and pus, stent placement and pancreatic duct No NSAID use and or aspirin for 5 days after the procedure - Hg stable no signs of active GI bleeding Heparin has been restarted Will start oral anticoagulation soon Has been on Coumadin since day before yesterday INR is not therapeutic-we will go slow with history of GI bleed PT/INR needs to be checked tomorrow that is one 04/29 and dose Coumadin accordingly INR is expected to be therapeutic or more as because he will be on Levaquin (3) Atrial fibrillation: anticoagulation held due to GI bleeding No more GI bleeding Has been back on heparin No acute cardiac symptoms Heart rate is controlled Started on an oral Coumadin INR is not yet therapeutic-dose needs to be adjusted as long as he is on Levaquin (4) Cholecystitis: CT of the abdomen did show cholelithiasis and acute cholecystitis MRI scan supported cholecystitis ERCP shows cholangitis with cholecystitis - no abdominal pain continue Ertapenem IV Appreciate surgery input and recommendation Likely cholecystectomy as an outpatient when medically stable (5) Septic shock: Septic shock secondary to community acquired pneumonia, cholangitis resolved but has been getting intravenous ertapenem for E. coli in empyema (6) S/P TAVR (transcatheter aortic valve replacement): no cardiac symptoms (7) Diabetes mellitus, type II: off Insulin drip and is being continued on basal/bolus therapy As per pharmacist (8) Coronary artery disease: Medical management with aspirin, Lipitor. Losartan on hold in setting of MARISA. No acute coronary symptoms (9) Ischemic cardiomyopathy: As above. Patient is declining defibrillator placement Manager Health on board (10) Acute kidney injury: Likely secondary to septic shock. crea stable (11) DVT (deep venous thrombosis): Anticoagulation is on hold due to GI bleed which required 2 unit of blood transfusion Started on intravenous heparin Poor nutrition secondary to multiple comorbid conditions Dietary consult-has been getting boost Increase ambulation Full code We will discharge him today to [facility] Total Time Total Time Spent Total Time Spent (In Minutes): 40 Minutes Total Time Includes: Examination of the Patient, Discharge Planning, Medication Reconciliation and Communication With Other Providers Discharge Plan Discharge Items Patient Disposition: Transfer Long Term Fac Reason For Visit: PNEUMONIA Discharge Diagnosis: Sepsis secondary to pneumonia with empyema of the left lung, status post Pleurx catheter placement, choledocholithiasis with cholecystitis status post ERCP with stent placement, ischemic cardiomyopathy, atrial fibrillation, type 2 diabetes on insulin Condition: Fair Discharge Goals: Decrease discomfort, Improve function, Increase independence and Improve nutritional status Activity: As commented below Activity Comment: Continue with physical therapy Non-emergency contact: Primary Care Provider Call non-emergency contact if: you have any medication questions and your symptoms worsen Follow-up/Referrals: Barrera Puri MD [Primary Care Provider] - (Please make an appointment with primary care provider within 7 days following discharge from the facility) Diet: Carb Consistent or DM2 and Heart Healthy Fluids: 1500ml (6 cups) Addtl Provider Instructions: Has been on Lovenox and Coumadin. Please check INR on more before 04/30 to check INR and dose Coumadin. Drain the Pleurx catheter daily as instructed. Vascular surgery will call for appointment to take the tube out as an outpatient. Will need to have GI appointment for repeat ERCP and stent removal likely during cholecystectomy and/or before that as an outpatient.Has appointment already Prescriptions: New spironolactone 25 mg Tablet 25 mg PO QAM 30 Days Qty: 30 RF: 0 pantoprazole 40 mg Tablet,Delayed Release (Dr/Ec) 40 mg PO QAM 30 Days Qty: 30 RF: 0 gabapentin 100 mg Capsule 100 mg PO TID 30 Days Qty: 90 RF: 0 enoxaparin 100 mg/mL Syringe 100 mg subcut Q24H 2 Days Qty: 2 RF: 0 metoprolol tartrate 25 mg Tablet 25 mg PO BID 30 Days Qty: 60 RF: 0 levofloxacin 500 mg Tablet 500 mg PO DAILY@1100 14 Days Qty: 14 RF: 0 Novolog Flexpen U-100 Insulin 100 unit/mL (3 mL) Insulin Pen 12 unit SC TIDM Qty: 3 RF: 0 Lantus Solostar U-100 Insulin 100 unit/mL (3 mL) Insulin Pen 30 unit SC QAM Qty: 3 RF: 0 Lantus Solostar U-100 Insulin 100 unit/mL (3 mL) Insulin Pen 10 unit SC HS Qty: 3 RF: 0 Continued atorvastatin 40 mg Tablet 40 mg PO HS RF: 0 buspirone 5 mg Tablet 2.5 mg PO BID RF: 0 sennosides 8.6 mg Tablet 8.6 mg PO DAILY PRN (Reason: Constipation) RF: 0 torsemide 20 mg Tablet 40 mg PO QAM RF: 0 torsemide 20 mg Tablet 20 mg PO QPM RF: 0 polyethylene glycol 3350 [Miralax] 17 gram Powder In Packet 17 g PO DAILY PRN (Reason: Constipation) RF: 0 aspirin [Aspir-81] 81 mg Tablet,Delayed Release (Dr/Ec) 81 mg PO DAILY RF: 0 acetaminophen [Tylenol Extra Strength] 500 mg Tablet 500 mg PO Q4 PRN (Reason: Fever Or Pain) RF: 0 spironolactone 25 mg Tablet 25 mg PO DAILY RF: 0 tamsulosin [Flomax] 0.4 mg Capsule 0.4 mg PO HS RF: 0 warfarin 5 mg Tablet 5 mg PO DAILY RF: 0 nitroglycerin [Nitrostat] 0.4 mg Tablet, Sublingual 0.4 mg sublingual DIRECTED PRN (Reason: Chest Pain) RF: 0 docusate sodium 100 mg Capsule 100 mg PO BID PRN (Reason: Constipation) RF: 0 zolpidem 5 mg Tablet 5 mg PO HS PRN (Reason: Sleep) RF: 0 magnesium oxide 400 mg magnesium Tablet 400 mg PO QAM RF: 0 Discontinued gabapentin 600 mg Tablet 600 mg PO TID RF: 0 Lantus U-100 Insulin 100 unit/mL Solution subcut DAILY RF: 0 losartan 25 mg Tablet 12.5 mg PO DAILY RF: 0 metoprolol succinate 25 mg Tablet Extended Release 24 Hr 25 mg PO DAILY RF: 0 glipizide 5 mg Tablet 5 mg PO DAILY RF: 0 Stand-Alone Forms: [facility] Discharge Orders: Discharge Order (Routine); Ordered 04/28/19 Ordered By: Alli Samuel Skilled Items Patient informed of condition?: Yes DNR: No Communicable Disease: No Discharge Prognosis: Stable Admission Data Admit Date/Time: 04/05/19 22:25 Attending Provider: Alli Samuel Admit Provider: Omi Awad Primary Care Provider: Barrera Puri Other Providers: Ronit Stein ; Jacques Vang ; Gilmer Jordan ; Vlad Chamorro ; Korey Diaz ; Case Carrillo ; Edgardo Villarreal ; Gilmer Ashley ; Kenneth Caputo ; Karla Clemens ; Daisy Romero ; Jacques Paula ; Andrew Son ; Gary Duff ; Alli Samuel ; Harris Galicia ; Taj Durham Service: Telemetry Other Interventions: Discharge Summary Assessment (RN) Last Done: 04/28/19 17:09 DC Date/Time DO NOT enter until pt leaves facility: 04/28/19 17:23
== END 2019-04-28 17:23 | DRG 871 ==
LOC: ED 20:15 → 1E 22:25 → SUATTDRO 22:25 → 1E 22:42 → 2S 04-10 15:34
DX: E78.5 Hyperlipidemia, unspecified; Z95.2 Presence of prosthetic heart valve; I48.2 Chronic atrial fibrillation; K29.80 Duodenitis without bleeding; T45.515A Adverse effect of anticoagulants, initial encounter; J18.9 Pneumonia, unspecified organism; Y92.009 Unspecified place in unspecified non-institutional (private) residence as the place of occurrence of the external cause; Z79.4 Long term (current) use of insulin; A41.9 Sepsis, unspecified organism; K92.1 Melena; B96.20 Unspecified Escherichia coli [E. coli] as the cause of diseases classified elsewhere; J96.11 Chronic respiratory failure with hypoxia; R65.21 Severe sepsis with septic shock; D62 Acute posthemorrhagic anemia; J91.8 Pleural effusion in other conditions classified elsewhere; I25.10 Atherosclerotic heart disease of native coronary artery without angina pectoris; K59.00 Constipation, unspecified; I24.8 Other forms of acute ischemic heart disease; J86.9 Pyothorax without fistula; N17.0 Acute kidney failure with tubular necrosis; Z87.442 Personal history of urinary calculi; I13.10 Hypertensive heart and chronic kidney disease without heart failure, with stage 1 through stage 4 chronic kidney disease, or unspecified chronic kidney disease; I65.29 Occlusion and stenosis of unspecified carotid artery; I50.9 Heart failure, unspecified; E11.22 Type 2 diabetes mellitus with diabetic chronic kidney disease; D68.32 Hemorrhagic disorder due to extrinsic circulating anticoagulants; Z86.73 Personal history of transient ischemic attack (TIA), and cerebral infarction without residual deficits; I25.5 Ischemic cardiomyopathy; E11.40 Type 2 diabetes mellitus with diabetic neuropathy, unspecified; K80.44 Calculus of bile duct with chronic cholecystitis without obstruction; N18.3 Chronic kidney disease, stage 3 (moderate); E11.621 Type 2 diabetes mellitus with foot ulcer

== ENCOUNTER 2019-11-25 23:14 | Inpatient (IN) ==
[2019-11-26 00:08] LABS: Basophils # (auto) 0.02 K/uL (0-0.2); Basophils % (auto) 0.1 %; Eosinophils # (auto) 0.04 K/uL (0-0.5); Eosinophils % (auto) 0.3 %; Hemoglobin 11.6 g/dL (14.0-18.0); Immature Granulocytes # (auto) 0.02 K/uL (0.00-0.02); Immature Granulocytes % (auto) 0.1 %; Lymphocytes # (auto) 0.59 K/uL (1.2-3.4); Lymphocytes % (auto) 4.4 %; Mean Corpuscular Hemoglobin 24.9 pg (25-34); Mean Corpuscular Hgb Conc 31.4 g/dL (32-36); Mean Corpuscular Volume 79.4 fL (80-100); Monocytes # (auto) 0.59 K/uL (0.11-0.59); Monocytes % (auto) 4.4 %; Neutrophils # (auto) 12.12 K/uL (1.4-6.5); Neutrophils % (auto) 90.7 %; Platelet Count 202 K/uL (130-400); RDW Coefficient of Variation 18.3 % (11.5-14.5); RDW Standard Deviation 53.2 fL (36.4-46.3); Red Blood Count 4.66 M/uL (4.7-6.1); White Blood Count 13.38 K/uL (4.8-10.8)
[2019-11-26 00:27] LABS: Alanine Aminotransferase 17 U/L (12-78); Albumin Level 2.6 gm/dl (3.4-5.0); Aspartate Aminotransferase 16 U/L (15-37); BUN Creatinine Ratio 31.4 (10-20); Blood Urea Nitrogen 42 mg/dl (7-18); Calcium 8.1 mg/dl (8.5-10.1); Carbon Dioxide 26 mmol/L (21-32); Chloride 104 mmol/L (98-107); Est GFR (African American) 60.1; Est GFR (Non-African American) 51.8; Glucose 294 mg/dl (70-99); Potassium 3.8 mmol/L (3.5-5.1); Sodium 138 mmol/L (136-145)
[2019-11-26 00:30] LABS: Albumin Globulin Ratio 0.7 (0.9-2); Alkaline Phosphatase 89 U/L (45-117); Bilirubin,Total 0.7 mg/dl (0.2-1); Globulin 3.9 gm/dl (2.5-4.0); Total Protein 6.5 gm/dl (6.4-8.2)
[2019-11-26 00:33] LABS: INR 2.9 (0.9-1.1); Prothrombin Time 27.5 Seconds (9.0-12.0)
[2019-11-26 00:41] LABS: Appearance Urine Clear (Clear); Bilirubin Urine Negative (Negative); Blood Urine Negative (Negative); Color Urine Yellow; Glucose Urine UA Negative (Negative); Ketones Urine Negative (Negative); Leukocyte Esterase Urine Negative (Negative); Nitrite Urine Negative (Negative); Protein Urine Negative (Negative); Specific Gravity Urine 1.014 (1.000-1.030); Urobilinogen Urine Negative (Negative)
[2019-11-26] MEDS ORDERED: PIPERACILLIN/TAZOBACTAM 4.5 GM/120 ML BAG IV ONE (04:44)
[2019-11-26] MEDS ORDERED: PIPERACILL/TAZOBAC CONSULT ACTIVE PRN (04:44)
[2019-11-26] MEDS ORDERED: PIPERACILLIN/TAZOBACTAM 4.5 GM/120ML D5W ONE (04:54)
[2019-11-26 05:36] LABS: Magnesium 2.3 mg/dl (1.8-2.4); Troponin I 0.024 ng/ml (0-0.045)
--- NOTE | 2019-11-26 05:41 | History & Physical Report ---
Date of Service November 26, 2019 Assessment & Plan (1) CHF (congestive heart failure): Mild congestion on x-ray hx chronic systolic heart failure secondary to ischemic cardiomyopathy (EF 30 to 35%, TTE 2018) Recurrent calculous cholecystitis hx biliary stent placement/removal patient not septic for now CAD status post CABG sp recent TAVR sp prosthetic valve rupture sp repair (12/2016) history of AFib/AFlutter on Coumadin, rate controlled, INR therapeutic history of CVA as per records DM2, insulin requiring, BSG markedly elevated Suboptimal control as of recent hemoglobin A1c of 7.07 April 2019 chronic anemia, hemoglobin at baseline PCU given CHF Diuretic Rx currently precluded by low BP Cardiology consult RE CHF Zosyn for cholecystitis Surgery consult RE recurrent cholecystitis (Patient known to Dr. Duff.) Basal insulin adjusted for n.p.o. status, ISS BG goal [id number], update hemoglobin A1c DVT prophylaxis. SCDs if INR less than 2 while Coumadin on hold in anticipation of surgical procedure Full code Text document was generated using Para[employer] voice recognition software. It may contain grammatical or spelling errors. Kindly contact undersigned for clarification of any documentation item in question. History of Present Illness Chief Complaint: Abdominal pain Primary Care Provider: Barrera Puri MD History obtained from patient and records. Medical history significant for chronic systolic heart failure secondary to ischemic cardiomyopathy (EF 30 to 35%, TTE 2018), CAD status post CABG, sp recent TAVR sp prosthetic valve rupture sp repair (12/2016), history of AFib/AFlutter, on Coumadin, history of CVA, PVD, DM2, insulin requiring, chronic anemia (baseline hemoglobin 11-12), hx choledocholithiasis status post biliary stent removal/replacement. Recent confinement March 2019 for sepsis secondary to complicated pneumonia. During confinement patient found to have calculous cholecystitis. Subsequently ERCP with biliary stent placement during confinement. Recent [place] [facility] [place]. Elective laparoscopic cholecystectomy with cholangiogram contemplated last November 03 pending outpatient preop Cardiology eval as per note. Patient seen by [facility] cardiology for preop eval last month. Patient deemed high risk for hetal-op complications as per note. Biliary stent removed by GI 2 weeks ago. Patient not medically fit for cholecystectomy as per GI note. Ursodiol trial recommended. Last night patient noted achy right flank pain with nausea without emesis. No fever, chills. No chest pain. Usual shortness of breath. At the ER, patient received IV Zosyn for cholecystitis. MEDICAL HISTORY: As above. SURGERIES: Aortic valve replacement, CABG, mitral valve plasty, cataract surgery, laser trabeculoplasty, urologic procedure, sternum separation, great toe amputation, FAMILY HISTORY: Cirrhosis PERSONAL AND SOCIAL HISTORY: Nonsmoker, no chronic ETOH intake. 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 Allergies Allergy/AdvReac Type Severity Reaction Status Date / Time lisinopril AdvReac Mild COUGH Verified 11/12/19 05:49 Home Medications Home Medications Medication Instructions Recorded Confirmed Type acetaminophen [Tylenol Extra 500 mg PO Q4 PRN 04/05/19 11/25/19 History Strength] aspirin [Aspir-81] 81 mg PO QAM 04/05/19 11/25/19 History atorvastatin 40 mg PO HS 04/05/19 11/25/19 History docusate sodium 100 mg PO BID PRN 04/05/19 11/25/19 History magnesium oxide 400 mg PO QPM 04/05/19 11/25/19 History nitroglycerin [Nitrostat] 0.4 mg SUBLINGUAL DIRECTED PRN 04/05/19 11/25/19 History polyethylene glycol 3350 [Miralax] 17 g PO DAILY PRN 04/05/19 11/25/19 History sennosides 8.6 mg PO DAILY PRN 04/05/19 11/25/19 History tamsulosin [Flomax] 0.4 mg PO HS 04/05/19 11/25/19 History torsemide 20 mg PO UD 04/05/19 11/25/19 History warfarin 5 mg PO QPM 04/05/19 11/25/19 History zolpidem 5 mg PO HS PRN 04/05/19 11/25/19 History gabapentin 100 mg PO TID 05/29/19 11/25/19 History metoprolol succinate 25 mg PO QAM 05/29/19 11/25/19 History spironolactone 25 mg PO BID 05/29/19 11/25/19 History Lantus Solostar U-100 Insulin 75 - 100 unit SC HS 06/14/19 11/25/19 History buspirone 10 mg PO TID 11/25/19 11/25/19 History Past Med/Surg History Medical History Anxiety Aortic stenosis s/p TAVR with MV replacement 12/2016. Atrial fibrillation ON WARFARIN - FOLLOWS W/ DR. KOWALSKI Cardiac murmur Severe mitral annular calcification per 03/2019 echo. Limited echo, valves not well visualized. H/O MV repair and AVR. CHF (congestive heart failure) Cholecystitis, chronic Coronary artery disease s/p CABG 2002 Degenerative disc disease Diabetes mellitus, type II IDDM Diabetic neuropathy Diverticular disease Dyslipidemia GERD (gastroesophageal reflux disease) History of recent pneumonia HOSPITALIZED 03/2019 [facility] History of renal calculi Hypertension Ischemic cardiomyopathy EF 25-30%, pt refused ICD. On anticoagulant therapy SOB (shortness of breath) on exertion Spinal stenosis Stroke 2 YEARS AGO - WEAKNESS LEFT SIDE Transient ischemic attack (TIA) 2016 Surgical History Difficult airway Glidescope #4 atraumatic attempt x 1, 04/05/19 History of aortic valve replacement History of TAVR complicated by prosthetic fracture and then underwent open surgical aortic valve replacement, mitral valve repair in 2016 History of cardiac cath 2 YEARS AGO - [facility] - NO STENTS/ANGIOPLASTY --> VALVE REPLACEMENT History of cardiac radiofrequency ablation For A flutter, 2005. History of cardioversion History of cataract surgery History of chest tube placement During admission 04/05 - 04/28 for empyema History of ERCP 04/09/19. Glidescope #4. 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: No Beliefs That Will Affect Care: None Current Living Situation: Spouse Other Information That Helps Us Care for You: No Feels Safe at Home: Yes Safety Concerns: Feels Safe At This Time Smoking Status: Never smoker Tobacco Type: smokeless tobacco ; Second Hand Exposure: Yes (ON [employer] PLAYING FRIENDS) ; Hx Alcohol Use: No Hx Substance Use: No Review of Systems Review of Systems: As per HPI, all 10 systems reviewed, all other ROS negative Physical Exam Physical Exam: GENERAL: Comfortable, pleasant, no respiratory distress SKIN: Pallor , warm HEENT: Bespectacled, pale palpebral conjunctivae, no ptosis, dry buccal mucosa NECK : Supple, no tenderness CHEST : CTA, no tenderness HEART : Irregular, systolic murmur ABDOMEN: Some distention, nontender EXTREMITIES : No LE swelling/tenderness, no other conspicuous deformities noted NEUROLOGIC : Coherent, no facial asymmetry, no other gross focality Results & Data Vital Signs (Past 12 Hours) Vital Signs Temp Pulse Resp BP Pulse Ox 11/26/19 01:30 72 23 109/49 L 98 11/26/19 01:00 78 24 113/57 L 97 11/26/19 00:31 76 25 H 97 11/26/19 00:30 76 22 111/35 L 96 11/26/19 00:05 96 11/26/19 00:00 21 97 11/25/19 23:43 36.9 C 85 26 H 118/64 96 11/25/19 23:30 26 H 96 11/25/19 23:25 96 H 34 H 96 11/25/19 23:23 90 27 H 118/64 96 Laboratory Results Laboratory Results WBC 13.38 K/uL (4.8-10.8) H 11/25/19 23:55 RBC 4.66 M/uL (4.7-6.1) L 11/25/19 23:55 Hgb 11.6 g/dL (14.0-18.0) L 11/25/19 23:55 Hct 37.0 % (42-52) L 11/25/19 23:55 MCV 79.4 fL (80-100) L 11/25/19 23:55 MCH 24.9 pg (25-34) L 11/25/19 23:55 MCHC 31.4 g/dL (32-36) L 11/25/19 23:55 RDW Std Deviation 53.2 fL (36.4-46.3) H 11/25/19 23:55 RDW Coeff of Abi 18.3 % (11.5-14.5) H 11/25/19 23:55 Plt Count 202 K/uL (130-400) 11/25/19 23:55 MPV 10.0 fL (7.4-10.4) 11/25/19 23:55 Immature Gran % (Auto) 0.1 % 11/25/19 23:55 Neut % (Auto) 90.7 % 11/25/19 23:55 Lymph % (Auto) 4.4 % 11/25/19 23:55 Ida % (Auto) 4.4 % 11/25/19 23:55 Eos % (Auto) 0.3 % 11/25/19 23:55 Baso % (Auto) 0.1 % 11/25/19 23:55 Immature Gran # (Auto) 0.02 K/uL (0.00-0.02) 11/25/19 23:55 Neut # (Auto) 12.12 K/uL (1.4-6.5) H 11/25/19 23:55 Lymph # (Auto) 0.59 K/uL (1.2-3.4) L 11/25/19 23:55 Ida # (Auto) 0.59 K/uL (0.11-0.59) 11/25/19 23:55 Eos # (Auto) 0.04 K/uL (0-0.5) 11/25/19 23:55 Baso # (Auto) 0.02 K/uL (0-0.2) 11/25/19 23:55 PT 27.5 Seconds (9.0-12.0) H 11/25/19 23:55 INR 2.9 (0.9-1.1) H 11/25/19 23:55 Sodium 138 mmol/L (136-145) 11/25/19 23:55 Potassium 3.8 mmol/L (3.5-5.1) 11/25/19 23:55 Chloride 104 mmol/L (98-107) 11/25/19 23:55 Carbon Dioxide 26 mmol/L (21-32) 11/25/19 23:55 Anion Gap 8.0 (3-11) 11/25/19 23:55 BUN 42 mg/dl (7-18) H 11/25/19 23:55 Creatinine 1.34 mg/dl (0.6-1.4) 11/25/19 23: Est Cr Clr Drug Dosing Not Reportable 02/26/20 23:55 Est GFR ( Amer) 60.1 11/25/19 23:55 Est GFR (Non-Af Amer) 51.8 11/25/19 23:55 BUN/Creatinine Ratio 31.4 (10-20) H 11/25/19 23:55 Glucose 294 mg/dl (70-99) H 11/25/19 23:55 Lactate 1.5 mmol/L (0.4-2.0) 11/26/19 02:15 Calcium 8.1 mg/dl (8.5-10.1) L 11/25/19 23:55 Magnesium 2.3 mg/dl (1.8-2.4) 11/25/19 23:54 Total Bilirubin 0.7 mg/dl (0.2-1) 11/25/19 23:55 AST 16 U/L (15-37) 11/25/19 23:55 ALT 17 U/L (12-78) 11/25/19 23:55 Alkaline Phosphatase 89 U/L (45-117) 11/25/19 23:55 Troponin I 0.024 ng/ml (0-0.045) 11/25/19 23:54 NT-Pro-B Natriuret Pep 5035 pg/ml (0-900) H 11/25/19 23:54 Total Protein 6.5 gm/dl (6.4-8.2) 11/25/19 23:55 Albumin 2.6 gm/dl (3.4-5.0) L 11/25/19 23:55 Globulin 3.9 gm/dl (2.5-4.0) 11/25/19 23:55 Albumin/Globulin Ratio 0.7 (0.9-2) L 11/25/19 23:55 Lipase 166 U/L (73-393) 11/25/19 23:54 Urine Color Yellow 11/26/19 00:21 Urine Appearance Clear (Clear) 11/26/19 00:21 Urine pH 6.0 (4.5-7.5) 11/26/19 00:21 Ur Specific [place] 1.014 (1.000-1.030) 11/26/19 00:21 Urine Protein Negative (Negative) 11/26/19 00:21 Urine Glucose (UA) Negative (Negative) 11/26/19 00:21 Urine Ketones Negative (Negative) 11/26/19 00:21 Urine Blood Negative (Negative) 11/26/19 00:21 Urine Nitrite Negative (Negative) 11/26/19 00:21 Urine Bilirubin Negative (Negative) 11/26/19 00:21 Urine Urobilinogen Negative (Negative) 11/26/19 00:21 Ur Leukocyte Esterase Negative (Negative) 11/26/19 00:21 Diagnostic Findings Right upper quadrant ultrasound initial read: Cholelithiasis, sludge, and gallbladder edema concerning for acute cholecystitis. Echogenic focus within CBD. CBD measures up to 6 mm. Chest x-ray as per my interpretation pulmonary congestion, pleural effusion left greater than the right EKG as per my interpretation : Rate 80, A. fib, LAD, LAFB, RBBB
[2019-11-26 06:38] LABS: Estimated Average Glucose 166 mg/dl; Hemoglobin A1C 7.4 % (4.5-5.6)
--- NOTE | 2019-11-26 06:40 | Ultrasound Report ---
US gallbladder CLINICAL HISTORY: Right upper quadrant pain. COMPARISON STUDY: CT of the abdomen and pelvis April 18, 2019. Fluoroscopic images from ERCP P 2019. FINDINGS: Incidental note is made of a right pleural effusion. The liver is cirrhotic. No hepatic les ions are identified. Gallstones within the gallbladder are noted. There is also sludge/debris within the gallbladder. Sonographic Porter sign could not be assessed for. Gallbladder wall thickening is no maik. The gallbladder wall measures 5 mm in thickness. There is suspected gas within the gallbladder l umen, as shown on CT of April 18, 2019. Caliber of the common bile duct is at the upper limits of norm al, measuring 6 mm. There are echogenic foci within the common bile duct. The pancreatic body is norm al. The head and tail are obscured. There is a 1.8 cm right renal cyst. No right hydronephrosis is pr esent. Small amount of perihepatic ascites is noted. IMPRESSION: 1. Cholelithiasis with gallbladder wall thickening. Suspected gas within the gallbladder lumen, possi sushant from prior sphincterotomy. As shown on prior CT of April 18, 2019. The findings raise the possibil ity of acute cholecystitis. 2. Top normal caliber common bile duct. Echogenic foci within the common bile duct could reflect pneu mobilia or stones. 3. Cirrhosis. Small amount of perihepatic ascites. 4. Right pleural effusion. ACT 112: Negative or not required by law. Electronically signed by: Walter Luciano M.D. 11/26/2019 6:39 AM
[2019-11-26] MEDS ORDERED: INSULIN GLARGINE SOLOSTAR 100 UNITS/ML 3 ML PEN SC STA (06:55)
[2019-11-26] MEDS ORDERED: GLUCOSE 10 TABS/TUBE PO PRN (06:55)
[2019-11-26] MEDS ORDERED: NITROGLYCERIN SL 0.4 MG/TAB TAB SL PRN (06:55)
[2019-11-26] MEDS ORDERED: GLUCAGON FOR INJ 1 MG VIAL SQ PRN (06:55)
[2019-11-26] MEDS ORDERED: DOCUSATE SODIUM 100 MG CAP PO PRN (06:55)
[2019-11-26] MEDS ORDERED: PROMETHAZINE HCL 12.5 MG in SODIUM CHLORIDE 0.9% 50 ML IV PRN (06:55)
[2019-11-26] MEDS ORDERED: GLUCOSE 40% GEL 15 GM TUBE PO PRN (06:55)
[2019-11-26] MEDS ORDERED: CARBOHYDRATES FOR HYPOGLYCEMIA PO PRN (06:55)
[2019-11-26] MEDS ORDERED: DEXTROSE 50% 50 ML SYRINGE IV PRN (06:55)
[2019-11-26] MEDS ORDERED: ALBUT/IPRATROP 3MG/0.5MG NEB 3 ML VIAL NEB STA (06:55)
--- NOTE | 2019-11-26 07:28 | XRay Report ---
XR chest 1V portable HISTORY: Hypoxia. COMPARISON: Chest 07/24/2019. FINDINGS: No pneumothorax. Small bilateral pleural effusions, left greater than right with left basil ar densities. Interval progression of the interstitial and vascular thickening consistent with pulmon keily edema. The heart is mildly enlarged. There are poststernotomy changes. Calcified left hilar lymph nodes are again noted. IMPRESSION: 1. Interval progression of the pulmonary edema. 2. Small bilateral pleural effusions and left basilar densities persist. ACT 112: Negative or not required by law. Electronically signed by: Jadiel Washington M.D. 11/26/2019 7:27 AM
--- NOTE | 2019-11-26 07:38 | Surgery Consultation ---
Date of Consultation November 26, 2019 Assessment & Plan (1) Cholelithiasis: Gallbladder wall 5mm, exam is benign, WBC 13,000. Not sure his primary problem is cholecystitis, will ask GI to see for possible CBD stones. Continue IV abx, await cardiology eval but based on previous recs, cholecystostomy tube would be indicated if his condition deteriorates. History of Present Illness Attending Physician: Taj Durham MD History of Present Illness 74 y/o male h/o multiple ERCP/stents for CBD stones beginning March 2019 considered high risk surgical candidate due to cardiac history and has not undergone cholecystectomy. Has been following as outpatient with Dr. Duff and stent was removed two weeks ago by . He had some RUQ pain and "shakes" yesterday, led to admission overnight. He was otherwise doing well, had some trouble once after eating spaghetti. This morning pain has resolved, no fevers or nausea. Allergies Allergy/AdvReac Type Severity Reaction Status Date / Time lisinopril AdvReac Mild COUGH Verified 11/12/19 05:49 Home Medications Home Medications Medication Instructions Recorded Confirmed Type acetaminophen [Tylenol Extra 500 mg PO Q4 PRN 04/05/19 11/25/19 History Strength] aspirin [Aspir-81] 81 mg PO QAM 04/05/19 11/25/19 History atorvastatin 40 mg PO HS 04/05/19 11/25/19 History docusate sodium 100 mg PO BID PRN 04/05/19 11/25/19 History magnesium oxide 400 mg PO QPM 04/05/19 11/25/19 History nitroglycerin [Nitrostat] 0.4 mg SUBLINGUAL DIRECTED PRN 04/05/19 11/25/19 History polyethylene glycol 3350 [Miralax] 17 g PO DAILY PRN 04/05/19 11/25/19 History sennosides 8.6 mg PO DAILY PRN 04/05/19 11/25/19 History tamsulosin [Flomax] 0.4 mg PO HS 04/05/19 11/25/19 History torsemide 20 mg PO UD 04/05/19 11/25/19 History warfarin 5 mg PO QPM 04/05/19 11/25/19 History zolpidem 5 mg PO HS PRN 04/05/19 11/25/19 History gabapentin 100 mg PO TID 05/29/19 11/25/19 History metoprolol succinate 25 mg PO QAM 05/29/19 11/25/19 History spironolactone 25 mg PO BID 05/29/19 11/25/19 History Lantus Solostar U-100 Insulin 75 - 100 unit SC HS 06/14/19 11/25/19 History buspirone 10 mg PO TID 11/25/19 11/25/19 History Patient History Medical History Anxiety Aortic stenosis s/p TAVR with MV replacement 12/2016. Atrial fibrillation ON WARFARIN - FOLLOWS W/ DR. KOWALSKI Cardiac murmur Severe mitral annular calcification per 03/2019 echo. Limited echo, valves not well visualized. H/O MV repair and AVR. CHF (congestive heart failure) Cholecystitis, chronic Coronary artery disease s/p CABG 2002 Degenerative disc disease Diabetes mellitus, type II IDDM Diabetic neuropathy Diverticular disease Dyslipidemia GERD (gastroesophageal reflux disease) History of recent pneumonia HOSPITALIZED 03/2019 [facility] History of renal calculi Hypertension Ischemic cardiomyopathy EF 25-30%, pt refused ICD. On anticoagulant therapy SOB (shortness of breath) on exertion Spinal stenosis Stroke 2 YEARS AGO - WEAKNESS LEFT SIDE Transient ischemic attack (TIA) 2016 Surgical History Difficult airway Glidescope #4 atraumatic attempt x 1, 04/05/19 History of aortic valve replacement History of TAVR complicated by prosthetic fracture and then underwent open surgical aortic valve replacement, mitral valve repair in 2016 History of cardiac cath 2 YEARS AGO - [facility] - NO STENTS/ANGIOPLASTY --> VALVE REPLACEMENT History of cardiac radiofrequency ablation For A flutter, 2005. History of cardioversion History of cataract surgery History of chest tube placement During admission 04/05 - 04/28 for empyema History of ERCP 04/09/19. Glidescope #4. History of mitral valve repair 01/22/2017 History of thoracentesis 04/10/19 Status post coronary artery bypass grafting 15 YEARS AGO - 3 VESSELS Family History Unknown Family history non-contributory Social History Preferred Language: Lithuanian Communication Ability: Effective Environmental Compliance Officer Required: No Beliefs That Will Affect Care: None Current Living Situation: Spouse Other Information That Helps Us Care for You: No Feels Safe at Home: Yes Safety Concerns: Feels Safe At This Time Smoking Status: Never smoker Tobacco Type: smokeless tobacco ; Second Hand Exposure: Yes (ON [employer] PLAYING FRIENDS) ; Hx Alcohol Use: No Hx Substance Use: No Review of Systems Constitutional: no fever, no sweats and no anorexia Gastrointestinal: + abdominal pain; no nausea and no vomiting Physical Exam Constitutional: WD/WN, vitals as above Respiratory: normal respiratory effort Gastrointestinal (Abdomen): Inspection/Auscultation: abdomen not distended Percussion/Palpation: abdomen soft; abdomen nontender Results & Data Vital Signs (Past 12 Hours) Vital Signs Temp Pulse Pulse Resp BP BP Pulse Ox 11/26/19 07:18 72 18 98 11/26/19 06:56 36.5 C 84 16 90/47 L 100 11/26/19 06:42 36.5 C 80 22 136/78 100 11/26/19 06:11 84 18 104/77 100 11/26/19 01:30 72 23 109/49 L 98 11/26/19 01:00 78 24 113/57 L 97 11/26/19 00:31 76 25 H 97 11/26/19 00:30 76 22 111/35 L 96 11/26/19 00:05 96 11/26/19 00:00 21 97 11/25/19 23:43 36.9 C 85 26 H 118/64 96 11/25/19 23:30 26 H 96 11/25/19 23:25 96 H 34 H 96 11/25/19 23:23 90 27 H 118/64 96 PG Care Time/CCT Total # of Minutes Spent Total Time Spent with Patient: Total time spent is greater than 50% in coordination of care (as documented) at patient's floor/unit and/or counseling patient: Coding Level of Care Code 19138 Initial Inpt Care Lvl 1 Diagnoses Cholelithiasis K80.20
--- NOTE | 2019-11-26 07:41 | Emergency Department Note ---
Entered by Shefali Marr acting as a scribe for Nina Fonseca DO History of Present Illness General Chief complaint: Flank Pain Stated complaint: CHEST PAIN/FLANK PAIN Time Seen by Provider: 11/25/19 23:18 Source: patient and family () History of Present Illness Onset (ago): hour(s) (3) Location: back Pain Consistency: + constant Quality: + other (right flank discomfort) Associated symptoms: + denies other symptoms (diarrhea, urinary changes), + fever/chills (negative fever; positive chills) and + shortness of breath; no nausea/vomiting Treatments prior to arrival: other (Tylenol) The patient is a 74 year old male who presents to the Emergency Room with compl aints of constant right flank discomfort beginning 3 hours ago. The patient reports chills, but denies any fever. He notes shortness of breath, but reports this is his baseline. The patient denies nausea, vomiting, diarrhea, and urinary changes. He states he took Tylenol for the pain which did not help. The patient reports a history of kidney stones but notes the pain is not bad enough for this to be a stone. He reports a history of gallbladder problems. He notes a history of a-fib and states he was on Coumadin until a few days ago when he was put on heparin injections. The patient's notes he was placed on Lovenox for 10 days following a removal of his bowel stents. He states he is on oxygen at home. Home Medications Home Medications Medication Instructions Recorded Confirmed Type acetaminophen [Tylenol Extra 500 mg PO Q4 PRN 04/05/19 11/25/19 History Strength] aspirin [Aspir-81] 81 mg PO QAM 04/05/19 11/25/19 History atorvastatin 40 mg PO HS 04/05/19 11/25/19 History docusate sodium 100 mg PO BID PRN 04/05/19 11/25/19 History magnesium oxide 400 mg PO QPM 04/05/19 11/25/19 History nitroglycerin [Nitrostat] 0.4 mg SUBLINGUAL DIRECTED PRN 04/05/19 11/25/19 History polyethylene glycol 3350 [Miralax] 17 g PO DAILY PRN 04/05/19 11/25/19 History sennosides 8.6 mg PO DAILY PRN 04/05/19 11/25/19 History tamsulosin [Flomax] 0.4 mg PO HS 04/05/19 11/25/19 History torsemide 20 mg PO UD 04/05/19 11/25/19 History warfarin 5 mg PO QPM 04/05/19 11/25/19 History zolpidem 5 mg PO HS PRN 04/05/19 11/25/19 History gabapentin 100 mg PO TID 05/29/19 11/25/19 History metoprolol succinate 25 mg PO QAM 05/29/19 11/25/19 History spironolactone 25 mg PO BID 05/29/19 11/25/19 History Lantus Solostar U-100 Insulin 75 - 100 unit SC HS 06/14/19 11/25/19 History buspirone 10 mg PO TID 11/25/19 11/25/19 History Allergies Allergy/AdvReac Type Severity Reaction Status Date / Time lisinopril AdvReac Mild COUGH Verified 11/12/19 05:49 Past Med/Surg History Medical History Anxiety Aortic stenosis s/p TAVR with MV replacement 12/2016. Atrial fibrillation ON WARFARIN - FOLLOWS W/ DR. CARRILLO Cardiac murmur Severe mitral annular calcification per 03/2019 echo. Limited echo, valves not well visualized. H/O MV repair and AVR. CHF (congestive heart failure) Cholecystitis, chronic Coronary artery disease s/p CABG 2002 Degenerative disc disease Diabetes mellitus, type II IDDM Diabetic neuropathy Diverticular disease Dyslipidemia GERD (gastroesophageal reflux disease) History of recent pneumonia HOSPITALIZED 03/2019 [facility] History of renal calculi Hypertension Ischemic cardiomyopathy EF 25-30%, pt refused ICD. On anticoagulant therapy SOB (shortness of breath) on exertion Spinal stenosis Stroke 2 YEARS AGO - WEAKNESS LEFT SIDE Transient ischemic attack (TIA) 2016 Surgical History Difficult airway Glidescope #4 atraumatic attempt x 1, 04/05/19 History of aortic valve replacement History of TAVR complicated by prosthetic fracture and then underwent open surgical aortic valve replacement, mitral valve repair in 2017 History of cardiac cath 2 YEARS AGO - [facility] - NO STENTS/ANGIOPLASTY --> VALVE REPLACEMENT History of cardiac radiofrequency ablation For A flutter, 2005. History of cardioversion History of cataract surgery History of chest tube placement During admission 04/05 - 04/28 for empyema History of ERCP 04/09/19. Glidescope #4. History of mitral valve repair 01/22/2017 History of thoracentesis 04/10/19 Status post coronary artery bypass grafting 15 YEARS AGO - 3 [facility]SE[facility] Family History Unknown Family history non-contributory Social History Preferred Language: Martiniquais Communication Ability: Effective [employer] Required: No Beliefs That Will Affect Care: None marital status: Current Living Situation: Spouse Other Information That Helps Us Care for You: No Feels Safe at Home: Yes Safety Concerns: Feels Safe At This Time Smoking Status: Never smoker Tobacco Type: smokeless tobacco ; Second Hand Exposure: Yes (ON [employer]) ; Hx Alcohol Use: No Hx Substance Use: No Review of Systems See HPI for pertinent positives & negatives. and A total of 10 systems reviewed and were otherwise negative Physical Exam Vital Signs Vital Signs - 24 hr 11/25/19 23:23 11/25/19 23:25 11/25/19 23:30 Temperature Temperature Source Pulse Rate 90 96 H Pulse Rate from SpO2 Sensor 92 H 96 H 88 Respiratory Rate 27 H 34 H 26 H Respiratory Effort / Characteristics Respiratory Depth Respiratory Pattern Blood Pressure 118/64 Blood Pressure Mean 76 Blood Pressure Position Pulse Oximetry 96 96 96 Oxygen Delivery Method Oxygen Flow Rate Sepsis Recent Fever Within 48 Hours Sepsis New/Unexplained Change in Mental Status Sepsis Action Taken by Nursing 11/25/19 23:43 11/26/19 00:00 11/26/19 00:05 Temperature 36.9 C Temperature Source Oral Pulse Rate 85 Pulse Rate from SpO2 Sensor 82 Respiratory Rate 26 H 21 Respiratory Effort / Characteristics Non-Labored Spontaneous Respiratory Depth Normal Respiratory Pattern Regular Blood Pressure 118/64 Blood Pressure Mean 82 Blood Pressure Position Lying Pulse Oximetry 96 97 96 Oxygen Delivery Method Nasal Cannula Nasal Cannula Oxygen Flow Rate 3 3 Sepsis Recent Fever Within 48 Hours No Sepsis New/Unexplained Change in Mental Status No Sepsis Action Taken by Nursing No Action Required 11/26/19 00:30 11/26/19 00:31 11/26/19 01:00 Temperature Temperature Source Pulse Rate 76 76 78 Pulse Rate from SpO2 Sensor 77 77 84 Respiratory Rate 22 25 H 24 Respiratory Effort / Characteristics Respiratory Depth Respiratory Pattern Blood Pressure 111/35 L 113/57 L Blood Pressure Mean 60 60 Blood Pressure Position Pulse Oximetry 96 97 97 Oxygen Delivery Method Oxygen Flow Rate Sepsis Recent Fever Within 48 Hours Sepsis New/Unexplained Change in Mental Status Sepsis Action Taken by Nursing 11/26/19 01:30 Temperature Temperature Source Pulse Rate 72 Pulse Rate from SpO2 Sensor 77 Respiratory Rate 23 Respiratory Effort / Characteristics Respiratory Depth Respiratory Pattern Blood Pressure 109/49 L Blood Pressure Mean 60 Blood Pressure Position Pulse Oximetry 98 Oxygen Delivery Method Oxygen Flow Rate Sepsis Recent Fever Within 48 Hours Sepsis New/Unexplained Change in Mental Status Sepsis Action Taken by Nursing HEENT: Head - normocephalic and atraumatic Pupils are equal, round, and reactive to light. Extraocular eye muscles are intact, and sclera are anicteric. Nose - moist nasal mucosa without discharge. Mouth - moist buccal mucosa. Oropharynx is nonerythematous and there is no tonsillar exudate or edema noted. Neck: Supple; no JVD, nuchal rigidity, cervical lymphadenopathy. Heart: Regular rate and irregularly irregular rhythm. There is a normal S1 and S2 with no murmurs, clicks, or gallops appreciated. Lungs: Clear to auscultation bilaterally with no wheezes, rales, or rhonchi. Abdomen: Soft, completely nontender, nondistended, with good bowel sounds. There are no palpable pulsatile masses or hepatosplenomegaly. There is no guarding, rigidity, or rebound noted. Back: No CVA tenderness. Extremities: No evidence of cyanosis, clubbing, or edema. There are easily palpable peripheral pulses. Skin: Areas of ecchymosis about abdominal wall. No skin lesions over right flank. warm and dry with good turgor and no rashes. Course Course 2340: Past medical records reviewed. The patient was evaluated in room B10. A complete history and physical exam was performed. An IV lock was initiated and labs are drawn as above. An order was placed for continuous cardiac monitoring. The patient remained in a normal sinus rhythm at a rate of 92. A urine specimen will be collected. The patient declined wanting anything for pain 0150: Upon reevaluation, the patient is resting comfortably. I discussed the case with the patient's and family who is now the bedside. He will go for ultrasound to further evaluate the gallbladder. 0325: The patient remains comfortable at this time we are awaiting results. 0434: I spoke with Dr. Tyrell NUÑEZ since he recently had the biliary stent removed and he recommended discussing the case with internal medicine and surgery. I reviewed multiple previous notes from his admission last summer. 0437: Upon reevaluation, I discussed findings and results with the patient and his . They verbalized agreement of the treatment plan. I spoke with Dr. Vang of the [facility]. The patient will be evaluated for further management and care. 0500: Zosyn 4.5gm IV was administered. Administered Medications Acetaminophen (Tylenol) 650 mg PO Q4H PRN PRN Reason: Pain or Fever Stop: 12/26/19 06:54 Last Admin: 11/26/19 18:29 Dose: 650 mg Documented by: [id number] Atorvastatin Calcium (Lipitor) 40 mg PO HS [facility] Stop: 12/26/19 20:59 Last Admin: 11/26/19 20:41 Dose: 40 mg Documented by: [id number] Buspirone HCl (Buspar) 10 mg PO TID [facility] Stop: 12/26/19 08:59 Last Admin: 11/27/19 14:25 Dose: 10 mg Documented by: [id number] Admin: 11/27/19 08:38 Dose: 10 mg Documented by: [id number] Admin: 11/26/19 20:40 Dose: 10 mg Documented by: [id number] Admin: 11/26/19 15:32 Dose: 10 mg Documented by: [id number] Admin: 11/26/19 09:01 Dose: 10 mg Documented by: [id number] Docusate Sodium (Colace) 100 mg PO BID PRN PRN Reason: Constipation Stop: 12/26/19 06:54 Last Admin: 11/26/19 20:39 Dose: 100 mg Documented by: [id number] Gabapentin (Neurontin) 100 mg PO TID [facility] Stop: 12/26/19 08:59 Last Admin: 11/27/19 14:25 Dose: 100 mg Documented by: [id number] Admin: 11/27/19 08:38 Dose: 100 mg Documented by: [id number] Admin: 11/26/19 20:41 Dose: 100 mg Documented by: [id number] Admin: 11/26/19 15:32 Dose: 100 mg Documented by: [id number] Admin: 11/26/19 09:01 Dose: 100 mg Documented by: [id number] Piperacillin Sod/Tazobactam (Sod 3.375 gm/ Dextrose) 115 mls @ 28.75 mls/hr IV Q8H [facility]; Protocol Stop: 12/05/19 21:59 Last Infusion: 11/27/19 14:32 Dose: 0 mls/hr Documented by: [id number] Admin: 11/27/19 10:31 Dose: 28.8 mls/hr Documented by: [id number] Infusion: 11/27/19 06:21 Dose: 0 mls/hr Documented by: [id number] Admin: 11/27/19 02:14 Dose: 28.8 mls/hr Documented by: [id number] Infusion: 11/26/19 21:51 Dose: 0 mls/hr Documented by: [id number] Admin: 11/26/19 17:18 Dose: 28.8 mls/hr Documented by: [id number] Infusion: 11/26/19 14:10 Dose: 0 mls/hr Documented by: [id number] Admin: 11/26/19 10:10 Dose: 28.8 mls/hr Documented by: [id number] Lactated Ringer's (Lr) 1,000 mls @ 50 mls/hr IV .Q20H [facility] Stop: 12/26/19 09:44 Last Infusion: 11/27/19 04:10 Dose: 0 mls/hr Documented by: [id number] Admin: 11/27/19 00:56 Dose: 80 mls/hr Documented by: [id number] Infusion: 11/27/19 00:43 Dose: 80 mls/hr Documented by: [id number] Infusion: 11/26/19 21:51 Dose: 80 mls/hr Documented by: [id number] Infusion: 11/26/19 20:50 Dose: 0 mls/hr Documented by: [id number] Admin: 11/26/19 11:12 Dose: 80 mls/hr Documented by: [id number] Insulin Aspart (Novolog Flexpen) 0 units SC ACHS [facility] Stop: 12/26/19 20:59 Last Admin: 11/27/19 12:29 Dose: 2 units Documented by: [id number] Cosigned by: [id number] Admin: 11/27/19 08:37 Dose: Not Given Documented by: [id number] Cosigned by: [id number] Admin: 11/26/19 20:43 Dose: 5 units Documented by: [id number] Cosigned by: [id number] Insulin Glargine (Lantus Solostar Pen) 20 units SC DAILY [facility] Stop: 12/27/19 08:59 Last Admin: 11/27/19 08:38 Dose: 20 units Documented by: [id number] Cosigned by: [id number] Metoprolol Succinate (Toprol Xl) 25 mg PO QAM [facility] Stop: 12/26/19 08:59 Last Admin: 11/27/19 08:38 Dose: 25 mg Documented by: [id number] Admin: 11/26/19 08:57 Dose: 25 mg Documented by: [id number] Morphine Sulfate (Morphine Sulfate) 2 mg IV Q4H PRN PRN Reason: Pain Stop: 12/10/19 06:54 Last Admin: 11/27/19 08:52 Dose: 2 mg Documented by: [id number] Admin: 11/27/19 04:41 Dose: 2 mg Documented by: [id number] Admin: 11/27/19 00:54 Dose: 2 mg Documented by: [id number] Tamsulosin HCl (Flomax) 0.4 mg PO HS [facility] Stop: 12/26/19 20:59 Last Admin: 11/26/19 20:40 Dose: 0.4 mg Documented by: [id number] Tramadol HCl (Ultram) 25 - 50 mg PO Q4H PRN PRN Reason: Pain Stop: 12/26/19 06:54 Last Admin: 11/27/19 12:28 Dose: 50 mg Documented by: [id number] Admin: 11/27/19 02:21 Dose: 50 mg Documented by: [id number] Admin: 11/26/19 20:41 Dose: 25 mg Documented by: [id number] Discontinued Medications Albuterol (Duoneb) 3 ml NEB NOW STA Stop: 11/26/19 06:56 Last Admin: 11/26/19 07:18 Dose: 3 ml Documented by: [id number] Aspirin (Ecotrin Ectab) 81 mg PO QAM [facility] Stop: 12/26/19 08:59 Last Admin: 11/26/19 09:01 Dose: 81 mg Documented by: [id number] Piperacillin Sod/Tazobactam Sod (Zosyn) 4.5 gm in 120 mls @ 240 mls/hr IV NOW ONE Stop: 11/26/19 05:13 Last Admin: 11/26/19 05:27 Dose: Not Given Documented by: [id number] Albumin Human (Albumin 25%) 50 mls @ 50 mls/hr IV Q6H [facility] Stop: 11/29/19 07:59 Last Infusion: 11/27/19 02:17 Dose: 0 mls/hr Documented by: [id number] Admin: 11/27/19 01:15 Dose: 50 mls/hr Documented by: [id number] Infusion: 11/26/19 21:51 Dose: 0 mls/hr Documented by: [id number] Admin: 11/26/19 20:28 Dose: 50 mls/hr Documented by: [id number] Infusion: 11/26/19 17:10 Dose: 0 mls/hr Documented by: [id number] Admin: 11/26/19 16:03 Dose: 50 mls/hr Documented by: [id number] Infusion: 11/26/19 08:47 Dose: 0 mls/hr Documented by: [id number] Admin: 11/26/19 07:47 Dose: 50 mls/hr Documented by: [id number] Phytonadione 5 mg/ Sodium (Chloride) 50.5 mls @ 101 mls/hr IV ONE ONE Stop: 11/26/19 09:44 Last Infusion: 11/26/19 09:58 Dose: 0 mls/hr Documented by: [id number] Admin: 11/26/19 09:28 Dose: 101 mls/hr Documented by: [id number] Indomethacin (Indocin) 100 mg MI ONE ONE Stop: 11/26/19 09:01 Last Admin: 11/26/19 16:24 Dose: Not Given Documented by: [id number] Insulin Aspart (Novolog Flexpen) 0 units SC ACHS [facility] Stop: 12/26/19 06:54 Last Admin: 11/26/19 18:00 Dose: Not Given Documented by: [id number] Cosigned by: [id number] Admin: 11/26/19 12:14 Dose: Not Given Documented by: [id number] Cosigned by: [id number] Admin: 11/26/19 08:05 Dose: Not Given Documented by: [id number] Cosigned by: [id number] Insulin Aspart (Novolog Flexpen) 0 units SC Q6 [facility] Stop: 12/26/19 17:59 Last Admin: 11/26/19 18:41 Dose: Not Given Documented by: [id number] Cosigned by: [id number] Insulin Glargine (Lantus Solostar Pen) 30 units SC NOW STA Stop: 11/26/19 06:56 Last Admin: 11/26/19 08:04 Dose: 30 units Documented by: [id number] Cosigned by: [id number] Lorazepam (Ativan) 0.25 mg PO NOW STA Stop: 11/26/19 21:42 Last Admin: 11/26/19 23:05 Dose: 0.25 mg Documented by: [id number] Piperacillin Sod/Tazobactam Sod (Zosyn) Confirm Administered Dose 4.5 gm .ROUTE .STK-MED ONE Stop: 11/26/19 04:55 Last Admin: 11/26/19 05:01 Dose: 4.5 gm Documented by: [id number] Potassium Chloride (Klor-Con M20) 40 meq PO ONE ONE Stop: 11/26/19 10:01 Last Admin: 11/26/19 10:25 Dose: 40 meq Documented by: [id number] Medical Decision Making Differential Diagnosis Differential diagnosis: Shingles, pyelonephritis, ureteral colic, bowel duct obstruction Medical Records Attestation: I reviewed the patient's medical records. Home Medications Current Medication List: was personally reviewed by me Laboratory Data Attestation: I reviewed the patient's lab results. Result diagrams: 11/27/19 08:55 11/27/19 08:55 Lab Results 11/25/19 11/25/19 11/25/19 Range/Units 23:54 23:55 23:55 WBC 13.38 H (4.8-10.8) K/uL RBC 4.66 L (4.7-6.1) M/uL Hgb 11.6 L (14.0-18.0) g/dL Hct 37.0 L (42-52) % MCV 79.4 L (80-100) fL MCH 24.9 L (25-34) pg MCHC 31.4 L (32-36) g/dL RDW Std Deviation 53.2 H (36.4-46.3) fL RDW Coeff of Abi 18.3 H (11.5-14.5) % Plt Count 202 (130-400) K/uL MPV 10.0 (7.4-10.4) fL Immature Gran % (Auto) 0.1 % Neut % (Auto) 90.7 % Lymph % (Auto) 4.4 % [place] % (Auto) 4.4 % Eos % (Auto) 0.3 % Baso % (Auto) 0.1 % Immature Gran # (Auto) 0.02 (0.00-0.02) K/uL Neut # (Auto) 12.12 H (1.4-6.5) K/uL Lymph # (Auto) 0.59 L (1.2-3.4) K/uL [place] # (Auto) 0.59 (0.11-0.59) K/uL Eos # (Auto) 0.04 (0-0.5) K/uL Baso # (Auto) 0.02 (0-0.2) K/uL PT (9.0-12.0) Seconds INR (0.9-1.1) Sodium 138 (136-145) mmol/L Potassium 3.8 (3.5-5.1) mmol/L Chloride 104 (98-107) mmol/L Carbon Dioxide 26 (21-32) mmol/L Anion Gap 8.0 (3-11) BUN 42 H (7-18) mg/dl Creatinine 1.34 (0.6-1.4) mg/dl Est Cr Clr Drug Dosing Not Reportable Est GFR ( Amer) 60.1 Est GFR (Non-Af Amer) 51.8 BUN/Creatinine Ratio 31.4 H (10-20) Glucose 294 H (70-99) mg/dl Lactate (0.4-2.0) mmol/L Calcium 8.1 L (8.5-10.1) mg/dl Magnesium 2.3 (1.8-2.4) mg/dl Total Bilirubin 0.7 (0.2-1) mg/dl AST 16 (15-37) U/L ALT 17 (12-78) U/L Alkaline Phosphatase 89 (45-117) U/L Troponin I 0.024 (0-0.045) ng/ml NT-Pro-B Natriuret Pep 5035 H (0-900) pg/ml Total Protein 6.5 (6.4-8.2) gm/dl Albumin 2.6 L (3.4-5.0) gm/dl Globulin 3.9 (2.5-4.0) gm/dl Albumin/Globulin Ratio 0.7 L (0.9-2) Lipase 166 (73-393) U/L Urine Color Urine Appearance (Clear) Urine pH (4.5-7.5) Ur Specific Winn (1.000-1.030) Urine Protein (Negative) Urine Glucose (UA) (Negative) Urine Ketones (Negative) Urine Blood (Negative) Urine Nitrite (Negative) Urine Bilirubin (Negative) Urine Urobilinogen (Negative) Ur Leukocyte Esterase (Negative) Bld Cult Staph aureus PCR (Negative) Blood Culture MRSA PCR (Negative) 11/25/19 11/26/19 11/26/19 Range/Units 23:55 00:21 02:15 WBC (4.8-10.8) K/uL RBC (4.7-6.1) M/uL Hgb (14.0-18.0) g/dL Hct (42-52) % MCV (80-100) fL MCH (25-34) pg MCHC (32-36) g/dL RDW Std Deviation (36.4-46.3) fL RDW Coeff of Abi (11.5-14.5) % Plt Count (130-400) K/uL MPV (7.4-10.4) fL Immature Gran % (Auto) % Neut % (Auto) % Lymph % (Auto) % [place] % (Auto) % Eos % (Auto) % Baso % (Auto) % Immature Gran # (Auto) (0.00-0.02) K/uL Neut # (Auto) (1.4-6.5) K/uL Lymph # (Auto) (1.2-3.4) K/uL [place] # (Auto) (0.11-0.59) K/uL Eos # (Auto) (0-0.5) K/uL Baso # (Auto) (0-0.2) K/uL PT 27.5 H (9.0-12.0) Seconds INR 2.9 H (0.9-1.1) Sodium (136-145) mmol/L Potassium (3.5-5.1) mmol/L Chloride (98-107) mmol/L Carbon Dioxide (21-32) mmol/L Anion Gap (3-11) BUN (7-18) mg/dl Creatinine (0.6-1.4) mg/dl Est Cr Clr Drug Dosing Est GFR ( Amer) Est GFR (Non-Af Amer) BUN/Creatinine Ratio (10-20) Glucose (70-99) mg/dl Lactate 1.5 (0.4-2.0) mmol/L Calcium (8.5-10.1) mg/dl Magnesium (1.8-2.4) mg/dl Total Bilirubin (0.2-1) mg/dl AST (15-37) U/L ALT (12-78) U/L Alkaline Phosphatase (45-117) U/L Troponin I (0-0.045) ng/ml NT-Pro-B Natriuret Pep (0-900) pg/ml Total Protein (6.4-8.2) gm/dl Albumin (3.4-5.0) gm/dl Globulin (2.5-4.0) gm/dl Albumin/Globulin Ratio (0.9-2) Lipase (73-393) U/L Urine Color Yellow Urine Appearance Clear (Clear) Urine pH 6.0 (4.5-7.5) Ur Specific Winn 1.014 (1.000-1.030) Urine Protein Negative (Negative) Urine Glucose (UA) Negative (Negative) Urine Ketones Negative (Negative) Urine Blood Negative (Negative) Urine Nitrite Negative (Negative) Urine Bilirubin Negative (Negative) Urine Urobilinogen Negative (Negative) Ur Leukocyte Esterase Negative (Negative) Bld Cult Staph aureus PCR (Negative) Blood Culture MRSA PCR (Negative) 11/26/19 Range/Units 02:15 WBC (4.8-10.8) K/uL RBC (4.7-6.1) M/uL Hgb (14.0-18.0) g/dL Hct (42-52) % MCV (80-100) fL MCH (25-34) pg MCHC (32-36) g/dL RDW Std Deviation (36.4-46.3) fL RDW Coeff of Abi (11.5-14.5) % Plt Count (130-400) K/uL MPV (7.4-10.4) fL Immature Gran % (Auto) % Neut % (Auto) % Lymph % (Auto) % [place] % (Auto) % Eos % (Auto) % Baso % (Auto) % Immature Gran # (Auto) (0.00-0.02) K/uL Neut # (Auto) (1.4-6.5) K/uL Lymph # (Auto) (1.2-3.4) K/uL [place] # (Auto) (0.11-0.59) K/uL Eos # (Auto) (0-0.5) K/uL Baso # (Auto) (0-0.2) K/uL PT (9.0-12.0) Seconds INR (0.9-1.1) Sodium (136-145) mmol/L Potassium (3.5-5.1) mmol/L Chloride (98-107) mmol/L Carbon Dioxide (21-32) mmol/L Anion Gap (3-11) BUN (7-18) mg/dl Creatinine (0.6-1.4) mg/dl Est Cr Clr Drug Dosing Est GFR ( Amer) Est GFR (Non-Af Amer) BUN/Creatinine Ratio (10-20) Glucose (70-99) mg/dl Lactate (0.4-2.0) mmol/L Calcium (8.5-10.1) mg/dl Magnesium (1.8-2.4) mg/dl Total Bilirubin (0.2-1) mg/dl AST (15-37) U/L ALT (12-78) U/L Alkaline Phosphatase (45-117) U/L Troponin I (0-0.045) ng/ml NT-Pro-B Natriuret Pep (0-900) pg/ml Total Protein (6.4-8.2) gm/dl Albumin (3.4-5.0) gm/dl Globulin (2.5-4.0) gm/dl Albumin/Globulin Ratio (0.9-2) Lipase (73-393) U/L Urine Color Urine Appearance (Clear) Urine pH (4.5-7.5) Ur Specific Winn (1.000-1.030) Urine Protein (Negative) Urine Glucose (UA) (Negative) Urine Ketones (Negative) Urine Blood (Negative) Urine Nitrite (Negative) Urine Bilirubin (Negative) Urine Urobilinogen (Negative) Ur Leukocyte Esterase (Negative) Bld Cult Staph aureus PCR Positive A (Negative) Blood Culture MRSA PCR Negative (Negative) Imaging Data Radiologist's Impression: [facility]: US RUQ: Comparison: ERCP dated 11/12/[address] dated 04/18/19 Cholelithiasis, sludge and gallbladder edema concerning for acute cholecystitis. Small amount of pericholecystic fluid. Echogenic foci seen in the anterior aspect of if the gallbladder with a shadowing pattern which may represent air, possibly due to recent sphincterotomy. Echogenic focus within the CBD is seen question air versus stone. CBD measures up to 6.6 mm in diameter. Right renal 1.8cm cyst with septation. Radiologist: Vlad Calabrese MD Study ready at 03:33 and initial results transmitted at 03:57. Blood Pressure Blood Pressure Findings: Low blood pressure Blood Pressure Disposition: further management by hospitalist MARCO Jack The patient is a 74 year old male who presents to the Emergency Room with complaints of constant right flank discomfort beginning 3 hours ago. The patient has a complicated past medical history including recurrent cholecystitis and cholangitis. The patient is not a good surgical candidate because of his complicated cardiac history. He has had previous biliary stents placed and removed. The most recent stent was just removed by Dr. Madera. The patient pr esents with a right-sided flank pain which is a bit different for him. Typically, the patient has right upper quadrant abdominal pain but he had right flank pain with some associated shaking. Patient does have a leukocytosis but no fever. I remain concerned about the possibility of infection given the elevated white blood cell count. The patient went for ultrasound which did confirm evidence of acute cholecystitis. I discussed the case with Dr. Hernandez who was cared for this patient before. I have started the patient on IV antibiotics and he will evaluate him further. He remains hemodynamically stable and I kept the patient abreast of the situation. Impression & Plan Cholecystitis Discharge Plan Visit Data *Final* Discharge Date/Time: 11/26/19 06:18 Chief Complaint: Flank Pain Stated Complaint: CHEST PAIN/FLANK PAIN ED Provider: Nina Fonseca Discharge Problem: Cholecystitis Patient Disposition: Admitted As Inpatient Discharge Instructions Interventions: ED Discharge Assessment Last Done: 11/26/19 06:18 The scribe's documentation has been prepared under my direction and personally reviewed by me in its entirety. I confirm that the note above accurately reflects all work, treatment, procedures, and medical decision making performed by me.
[2019-11-26] MEDS: ALBUMIN 25% 50 ML IV SCH ×3 (07:47→20:28)
[2019-11-26 08:05] LABS: Basophils # (auto) 0.02 K/uL (0-0.2); Basophils % (auto) 0.2 %; Eosinophils # (auto) 0.06 K/uL (0-0.5); Eosinophils % (auto) 0.6 %; Hematocrit (blood only) 38.3 % (42-52); Hemoglobin 11.9 g/dL (14.0-18.0); Immature Granulocytes # (auto) 0.02 K/uL (0.00-0.02); Immature Granulocytes % (auto) 0.2 %; Lymphocytes % (auto) 5.7 %; Mean Corpuscular Hemoglobin 24.9 pg (25-34); Mean Corpuscular Hgb Conc 31.1 g/dL (32-36); Mean Corpuscular Volume 80.1 fL (80-100); Mean Platelet Volume 10.2 fL (7.4-10.4); Monocytes # (auto) 0.94 K/uL (0.11-0.59); Neutrophils # (auto) 8.81 K/uL (1.4-6.5); Neutrophils % (auto) 84.3 %; Platelet Count 184 K/uL (130-400); RDW Coefficient of Variation 18.3 % (11.5-14.5); RDW Standard Deviation 53.8 fL (36.4-46.3); Red Blood Count 4.78 M/uL (4.7-6.1); White Blood Count 10.45 K/uL (4.8-10.8)
[2019-11-26] MEDS: INSULIN ASPART 100 UNITS/ML 3 ML PEN SC SCH ×4 (08:05→20:43)
[2019-11-26 08:15] LABS: INR 2.9 (0.9-1.1); Prothrombin Time 27.7 Seconds (9.0-12.0)
[2019-11-26 08:39] LABS: Albumin Level 2.5 gm/dl (3.4-5.0); BUN Creatinine Ratio 30.9 (10-20); Calcium 8.6 mg/dl (8.5-10.1); Est GFR (African American) 64.1; Est GFR (Non-African American) 55.3; Potassium 3.7 mmol/L (3.5-5.1)
[2019-11-26 08:41] LABS: Albumin Globulin Ratio 0.6 (0.9-2); Globulin 4.2 gm/dl (2.5-4.0); Total Protein 6.7 gm/dl (6.4-8.2)
[2019-11-26] MEDS: METOPROLOL SUCC 25MG EXT REL TAB PO SCH (08:57)
[2019-11-26] MEDS ORDERED: INDOMETHACIN 50 MG SUPP PR ONE (09:00)
[2019-11-26] MEDS ORDERED: ASPIRIN 81 MG ECTAB PO SCH (09:00)
[2019-11-26] MEDS: GABAPENTIN 100 MG CAP PO SCH ×3 (09:01→20:41)
[2019-11-26] MEDS ORDERED: PHYTONADIONE 5 MG in SODIUM CHLORIDE 0.9% 50 ML IV ONE (09:15)
--- NOTE | 2019-11-26 09:35 | Gastrointestinal Consultation ---
Date of Consultation November 26, 2019 Assessment & Plan (1) Cholecystitis: (2) Cholelithiasis: (3) Choledocholithiasis: Pt is a 74 y/o male w hx of cholecystitis, choledocholithiasis, cholangitis who is a poor surgical candidate due to his cardiac comorbidities. He's been undergoing series of ERCP w biliary stents placement since 03/2019, last ERCP done 11/12/2019 w stents removal. He presented last night w c/o RUQ abd pain, fever, chills, suspect likely recurrence of choledocholithiasis w possible cholangitis. LFTs, Lipase normal - IVF resuscitation; continue Zosyn IV - Repeat ERCP today. Keep NPO please - Vit K 5mg IV now; INR 2.9 - Future consideration for Axios stent placement in outpt setting Supervising Physician Co-Signing Physician Notes I performed a history and physical examination of the patient today, including specifically on physical exam - soft abdomen. I have discussed the patient's management with the advanced practitioner. Please refer to the nurse practitioner's note for the documented findings and plan of care. Patient with gallstones and recurrent choledocholithiasis since 03/2019, had multiple ERCPs with stent exchange and last was a week ago however now presented with classical cholangitis picture, pain, chills, leukocytosis. It seems from prior notes that he is not a surgical candidate given his CHF. Recommend: ERCP today with stenting. [place] [facility] [place], if deemed not a candidate there then I will arrange for an Axios stent choledochoduodenostomy placement as OP. History of Present Illness Reason for Consultation: Fever, chills, RUQ abd pain s/p biliary stent removal Requesting Physician: Dr. Taj Durham Attending Physician: Dr. Demi Dowell History of Present Illness Pt is a 74 y/o male who presented w c/o RUQ abd pain, fever, chills last night. He has hx of cholecystitis, choledocholithiasis, cholangitis, s/p several ERCPs since 03/2019 w biliary stents placements/replacement. Last ERCP done 11/12/2018, stents are removed. He has a complicated cardiac hx including HF 2/2 ischemic cardiomyopathy, CAD s/p CABG, s/p TAVR, Afib/Aflutter, hx of CVA on Coumadin. He is deemed a high risk for cholecystectomy. VS, labs reviewed. BP soft this AM 80s/40s. He did have leukocytosis, WBC 13K on admission. LFTs, lipase normal. BNP >5K. CXR showed interval progression of the pulmonary edema and bilateral pleural effusions. Gallbladder u/s showed cholelithiasis with gallbladder wall thickening. Suspected gas within the gallbladder lumen, possibly from prior sphincterotomy. The findings raise the possibility of acute cholecystitis. CBD 6mm w echogenic foci in CBD which could reflect pneumobilia or stones. Liver appear cirrhotic w periphepatic ascites ? related to cholecystitis. Allergies Allergy/AdvReac Type Severity Reaction Status Date / Time lisinopril AdvReac Mild COUGH Verified 11/12/19 05:49 Home Medications Home Medications Medication Instructions Recorded Confirmed Type acetaminophen [Tylenol Extra 500 mg PO Q4 PRN 04/05/19 11/25/19 History Strength] aspirin [Aspir-81] 81 mg PO QAM 04/05/19 11/25/19 History atorvastatin 40 mg PO HS 04/05/19 11/25/19 History docusate sodium 100 mg PO BID PRN 04/05/19 11/25/19 History magnesium oxide 400 mg PO QPM 04/05/19 11/25/19 History nitroglycerin [Nitrostat] 0.4 mg SUBLINGUAL DIRECTED PRN 04/05/19 11/25/19 History polyethylene glycol 3350 [Miralax] 17 g PO DAILY PRN 04/05/19 11/25/19 History sennosides 8.6 mg PO DAILY PRN 04/05/19 11/25/19 History tamsulosin [Flomax] 0.4 mg PO HS 04/05/19 11/25/19 History torsemide 20 mg PO UD 04/05/19 11/25/19 History warfarin 5 mg PO QPM 04/05/19 11/25/19 History zolpidem 5 mg PO HS PRN 04/05/19 11/25/19 History gabapentin 100 mg PO TID 05/29/19 11/25/19 History metoprolol succinate 25 mg PO QAM 05/29/19 11/25/19 History spironolactone 25 mg PO BID 05/29/19 11/25/19 History Lantus Solostar U-100 Insulin 75 - 100 unit SC HS 06/14/19 11/25/19 History buspirone 10 mg PO TID 11/25/19 11/25/19 History Patient History Medical History Anxiety Aortic stenosis s/p TAVR with MV replacement 12/2016. Atrial fibrillation ON WARFARIN - FOLLOWS W/ DR. CARRILLO Cardiac murmur Severe mitral annular calcification per 03/2019 echo. Limited echo, valves not well visualized. H/O MV repair and AVR. CHF (congestive heart failure) Cholecystitis, chronic Coronary artery disease s/p CABG 2002 Degenerative disc disease Diabetes mellitus, type II IDDM Diabetic neuropathy Diverticular disease Dyslipidemia GERD (gastroesophageal reflux disease) History of recent pneumonia HOSPITALIZED 03/2019 [facility] History of renal calculi Hypertension Ischemic cardiomyopathy EF 25-30%, pt refused ICD. On anticoagulant therapy SOB (shortness of breath) on exertion Spinal stenosis Stroke 2 YEARS AGO - WEAKNESS LEFT SIDE Transient ischemic attack (TIA) 2016 Surgical History Difficult airway Glidescope #4 atraumatic attempt x 1, 04/05/19 History of aortic valve replacement History of TAVR complicated by prosthetic fracture and then underwent open surgical aortic valve replacement, mitral valve repair in 2016 [facility] of [facility] NO STENTS/ANGIOPLASTY --> VALVE REPLACEMENT History of cardiac radiofrequency ablation For A flutter, 2005. History of cardioversion History of cataract surgery History of chest tube placement During admission 04/05 - 04/28 for empyema History of ERCP 04/09/19. Glidescope #4. History of mitral valve repair 01/22/2017 History of thoracentesis 04/10/19 Status post coronary artery bypass grafting 15 YEARS AGO - 3 VESSELS Family History Unknown Family history non-contributory Social History Preferred Language: Angolan Communication Ability: Effective Art Gilder Required: No Beliefs That Will Affect Care: None Current Living Situation: Spouse Other Information That Helps Us Care for You: No Feels Safe at Home: Yes Safety Concerns: Feels Safe At This Time Smoking Status: Never smoker Tobacco Type: smokeless tobacco ; Second Hand Exposure: Yes (ON [employer]RI[employer]DS) ; Hx Alcohol Use: No Hx Substance Use: No Review of Systems Review of Systems: All systems reviewed & are unremarkable except as noted in HPI & below Physical Exam Constitutional: WD/WN, vitals as above well groomed, cooperative and comfortable Eyes: PERRL, conjunctivae normal, anicteric sclerae ENMT: external ear and nose normal, oropharynx normal Respiratory: no respiratory distress and does not use accessory muscles Auscultation: + diminished lung sounds (on bases) Cardiovascular: RRR, no murmur, no edema Gastrointestinal (Abdomen): Inspection/Auscultation: normal bowel sounds Percussion/Palpation: + abdomen tender (RUQ) and abdomen soft Skin: no rashes, warm and dry no jaundice Neurologic: Motor/Sensory: no asterixis Psychiatric: A+Ox3, euthymic affect Lymphatic: no lymphedema Results & Data ([facility]) Vital Signs (Past 12 Hours) Vital Signs Temp Pulse Pulse Resp BP BP Pulse Ox 11/26/19 09:00 85 100/50 L 11/26/19 08:24 36.6 C 87 20 92/47 L 96 11/26/19 07:18 72 18 98 11/26/19 06:56 36.5 C 84 16 90/47 L 100 11/26/19 06:42 36.5 C 80 22 136/78 100 11/26/19 06:11 84 18 104/77 100 11/26/19 01:30 72 23 109/49 L 98 11/26/19 01:00 78 24 113/57 L 97 11/26/19 00:31 76 25 H 97 11/26/19 00:30 76 22 111/35 L 96 11/26/19 00:05 96 11/26/19 00:00 21 97 11/25/19 23:43 36.9 C 85 26 H 118/64 96 11/25/19 23:30 26 H 96 11/25/19 23:25 96 H 34 H 96 11/25/19 23:23 90 27 H 118/64 96
[2019-11-26] MEDS ORDERED: POTASSIUM CHLORIDE 20 MEQ TABCR PO ONE (10:00)
[2019-11-26] MEDS: PIPERACILLIN/TAZOBACTAM 3.375 GM in DEXTROSE 5% 100 ML IV SCH ×2 (10:10→17:18)
--- NOTE | 2019-11-26 10:16 | Hospitalist Progress Note ---
Date of Service November 26, 2019 Assessment & Plan (1) CHF (congestive heart failure): Mild congestion on x-ray hx chronic systolic heart failure secondary to ischemic cardiomyopathy (EF 30 to 35%, TTE 2018) Recurrent calculous cholecystitis hx biliary stent placement/removal patient not septic for now CAD status post CABG sp recent TAVR sp prosthetic valve rupture sp repair (12/2016) history of AFib/AFlutter on Coumadin, rate controlled, INR therapeutic history of CVA as per records DM2, insulin requiring, BSG markedly elevated Suboptimal control as of recent hemoglobin A1c of 7.07 April 2019 chronic anemia, hemoglobin at baseline PCU given CHF Diuretic Rx currently precluded by low BP Cardiology consult RE CHF Zosyn for cholecystitis Surgery consult RE recurrent cholecystitis (Patient known to Dr. Duff.) Basal insulin adjusted for n.p.o. status, ISS BG goal [id number], update hemoglobin A1c DVT prophylaxis. SCDs if INR less than 2 while Coumadin on hold in anticipation of surgical procedure Full code Text document was generated using [employer] voice recognition software. It may contain grammatical or spelling errors. Kindly contact undersigned for clarification of any documentation item in question. (2) Right flank pain: 74-year-old male with history of cholelithiasis, systolic CHF, ischemic cardiomyopathy of 30 to 35%, coronary disease/CABG, Aortic stenosis status post TAVR, atrial fibrillation on Coumadin, history of CVA, diabetes type 2 presenting with right leg pain. Acute cholangitis with choledocholithiasis; cholelithiasis --Evaluated by general surgery service Right flank pain felt to be secondary to choledocholithiasis --GI consulted, ESR be performed 11/26/2019 CBD stone removed, pus also drained from common bile duct, stents placed --Follow-up cultures --Continue Zosyn GI recommends outpatient cholecystectomy History of chronic systolic congestive heart failure, ischemic cardiomyopathy 30 to 35% --Evaluated by cardiology service preoperatively --Diuretics on hold for now Monitor while on IV fluids History of CAD, CABG --No active chest pain Aspirin on hold, continue metoprolol, Lipitor Atrial fibrillation on chronic Coumadin --INR 2.9, vitamin K given, monitor INR Coumadin on hold for now in light of procedure per #1 Diabetes type 2 --Sliding scale History of CVA --Aspirin on hold DVT prophylaxis SCDs for now Disposition Pending Anticipate discharge to home when medically stable Admission and Anticipated Discharge Date Admission Date: November 26, 2019 Subjective Follow-up for possible cholecystitis, chronic systolic congestive heart failure, ischemic cardiomyopathy, CAD/CABG, atrial fibrillation/flutter on Coumadin, status post TAVR Seen resting in bed, comfortable, not in distress States he is pain-free during my exam Denies shortness of breath, chest pain, palpitations, dizziness No nausea No chills No other symptoms Review of Systems Review of Systems: All systems reviewed & are unremarkable except as noted in HPI & below Physical Exam Physical Exam: General- oriented x 3, not in distress, speaks in sentences with no effort or accessory muscle use Head- atraumatic Eyes- PERRL, EOMI, anicteric ENT- oropharynx clear Neck- supple, no JVD, no adenopathy, no thyromegaly; carotids +2/2, no bruits appreciated Lungs- clear to auscultation bilaterally, no rales/wheezes Heart- normal rate, irregularly irregular rhythm; no murmur, no gallop, no rub appreciated Abdomen- normal bowel sounds, mild right flank tenderness, soft, no masses or hepatosplenomegaly Extremities- no pretibial edema, no calf tenderness; peripheral pulses intact Neuro- alert, oriented x 3; CN 2-12 grossly intact; motor 5/5 bilaterally;sensation 100% on all extremities; no other gross focal neurologic deficits Skin- warm & dry Results & Data ([facility]) Vital Signs (Past 12 Hours) Vital Signs Temp Pulse Pulse Resp BP BP Pulse Ox 11/26/19 09:00 85 100/50 L 11/26/19 08:24 36.6 C 87 20 92/47 L 96 11/26/19 07:18 72 18 98 11/26/19 06:56 36.5 C 84 16 90/47 L 100 11/26/19 06:42 36.5 C 80 22 136/78 100 11/26/19 06:11 84 18 104/77 100 11/26/19 01:30 72 23 109/49 L 98 11/26/19 01:00 78 24 113/57 L 97 11/26/19 00:31 76 25 H 97 11/26/19 00:30 76 22 111/35 L 96 11/26/19 00:05 96 11/26/19 00:00 21 97 11/25/19 23:43 36.9 C 85 26 H 118/64 96 11/25/19 23:30 26 H 96 11/25/19 23:25 96 H 34 H 96 11/25/19 23:23 90 27 H 118/64 96 Laboratory Results Laboratory Results - last 24 hr 11/25/19 11/25/19 11/25/19 23:54 23:55 23:55 WBC 13.38 H RBC 4.66 L Hgb 11.6 L Hct 37.0 L MCV 79.4 L MCH 24.9 L MCHC 31.4 L RDW Std Deviation 53.2 H RDW Coeff of Abi 18.3 H Plt Count 202 MPV 10.0 Immature Gran % (Auto) 0.1 Neut % (Auto) 90.7 Lymph % (Auto) 4.4 Kimble % (Auto) 4.4 Eos % (Auto) 0.3 Baso % (Auto) 0.1 Immature Gran # (Auto) 0.02 Neut # (Auto) 12.12 H Lymph # (Auto) 0.59 L Kimble # (Auto) 0.59 Eos # (Auto) 0.04 Baso # (Auto) 0.02 PT INR Sodium 138 Potassium 3.8 Chloride 104 Carbon Dioxide 26 Anion Gap 8.0 BUN 42 H Creatinine 1.34 Est Cr Clr Drug Dosing Not Reportable Est GFR ( Amer) 60.1 Est GFR (Non-Af Amer) 51.8 BUN/Creatinine Ratio 31.4 H Glucose 294 H POC Glucose Estimat Average Glucose Hemoglobin A1c Lactate Calcium 8.1 L Magnesium 2.3 Total Bilirubin 0.7 AST 16 ALT 17 Alkaline Phosphatase 89 Troponin I 0.024 NT-Pro-B Natriuret Pep 5035 H Total Protein 6.5 Albumin 2.6 L Globulin 3.9 Albumin/Globulin Ratio 0.7 L Lipase 166 Urine Color Urine Appearance Urine pH Ur Specific [place] Urine Protein Urine Glucose (UA) Urine Ketones Urine Blood Urine Nitrite Urine Bilirubin Urine Urobilinogen Ur Leukocyte Esterase 11/25/19 11/26/19 11/26/19 23:55 00:21 02:15 WBC RBC Hgb Hct MCV MCH MCHC RDW Std Deviation RDW Coeff of Abi Plt Count MPV Immature Gran % (Auto) Neut % (Auto) Lymph % (Auto) Kimble % (Auto) Eos % (Auto) Baso % (Auto) Immature Gran # (Auto) Neut # (Auto) Lymph # (Auto) Kimble # (Auto) Eos # (Auto) Baso # (Auto) PT 27.5 H INR 2.9 H Sodium Potassium Chloride Carbon Dioxide Anion Gap BUN Creatinine Est Cr Clr Drug Dosing Est GFR ( Amer) Est GFR (Non-Af Amer) BUN/Creatinine Ratio Glucose POC Glucose Estimat Average Glucose Hemoglobin A1c Lactate 1.5 Calcium Magnesium Total Bilirubin AST ALT Alkaline Phosphatase Troponin I NT-Pro-B Natriuret Pep Total Protein Albumin Globulin Albumin/Globulin Ratio Lipase Urine Color Yellow Urine Appearance Clear Urine pH 6.0 Ur Specific [place] 1.014 Urine Protein Negative Urine Glucose (UA) Negative Urine Ketones Negative Urine Blood Negative Urine Nitrite Negative Urine Bilirubin Negative Urine Urobilinogen Negative Ur Leukocyte Esterase Negative 11/26/19 11/26/19 11/26/19 07:31 07:52 07:52 WBC 10.45 RBC 4.78 Hgb 11.9 L Hct 38.3 L MCV 80.1 MCH 24.9 L MCHC 31.1 L RDW Std Deviation 53.8 H RDW Coeff of Abi 18.3 H Plt Count 184 MPV 10.2 Immature Gran % (Auto) 0.2 Neut % (Auto) 84.3 Lymph % (Auto) 5.7 Kimble % (Auto) 9.0 Eos % (Auto) 0.6 Baso % (Auto) 0.2 Immature Gran # (Auto) 0.02 Neut # (Auto) 8.81 H Lymph # (Auto) 0.60 L Kimble # (Auto) 0.94 H Eos # (Auto) 0.06 Baso # (Auto) 0.02 PT INR Sodium 138 Potassium 3.7 Chloride 105 Carbon Dioxide 28 Anion Gap 6.0 BUN 39 H Creatinine 1.27 Est Cr Clr Drug Dosing 57.0 Est GFR ( Amer) 64.1 Est GFR (Non-Af Amer) 55.3 BUN/Creatinine Ratio 30.9 H Glucose 136 H POC Glucose 138 H Estimat Average Glucose Hemoglobin A1c Lactate Calcium 8.6 Magnesium Total Bilirubin 1.0 AST 13 L ALT 15 Alkaline Phosphatase 86 Troponin I NT-Pro-B Natriuret Pep Total Protein 6.7 Albumin 2.5 L Globulin 4.2 H Albumin/Globulin Ratio 0.6 L Lipase Urine Color Urine Appearance Urine pH Ur Specific [place] Urine Protein Urine Glucose (UA) Urine Ketones Urine Blood Urine Nitrite Urine Bilirubin Urine Urobilinogen Ur Leukocyte Esterase 11/26/19 11/26/19 11/26/19 07:52 07:52 11:39 WBC RBC Hgb Hct MCV MCH MCHC RDW Std Deviation RDW Coeff of Abi Plt Count MPV Immature Gran % (Auto) Neut % (Auto) Lymph % (Auto) Kim[place] % (Auto) Eos % (Auto) Baso % (Auto) Immature Gran # (Auto) Neut # (Auto) Lymph # (Auto) Kimble # (Auto) Eos # (Auto) Baso # (Auto) PT 27.7 H INR 2.9 H Sodium Potassium Chloride Carbon Dioxide Anion Gap BUN Creatinine Est Cr Clr Drug Dosing Est GFR ( Amer) Est GFR (Non-Af Amer) BUN/Creatinine Ratio Glucose POC Glucose 119 H Estimat Average Glucose Hemoglobin A1c Lactate Calcium Magnesium 2.6 H Total Bilirubin AST ALT Alkaline Phosphatase Troponin I NT-Pro-B Natriuret Pep Total Protein Albumin Globulin Albumin/Globulin Ratio Lipase Urine Color Urine Appearance Urine pH Ur Specific [place] Urine Protein Urine Glucose (UA) Urine Ketones Urine Blood Urine Nitrite Urine Bilirubin Urine Urobilinogen Ur Leukocyte Esterase 11/26/19 11/26/19 14:39 23:55 WBC RBC Hgb Hct MCV MCH MCHC RDW Std Deviation RDW Coeff of Abi Plt Count MPV Immature Gran % (Auto) Neut % (Auto) Lymph % (Auto) [place] % (Auto) Eos % (Auto) Baso % (Auto) Immature Gran # (Auto) Neut # (Auto) Lymph # (Auto) Kimble # (Auto) Eos # (Auto) Baso # (Auto) PT INR Sodium Potassium Chloride Carbon Dioxide Anion Gap BUN Creatinine Est Cr Clr Drug Dosing Est GFR ( Amer) Est GFR (Non-Af Amer) BUN/Creatinine Ratio Glucose POC Glucose 131 H Estimat Average Glucose 166 Hemoglobin A1c 7.4 H Lactate Calcium Magnesium Total Bilirubin AST ALT Alkaline Phosphatase Troponin I NT-Pro-B Natriuret Pep Total Protein Albumin Globulin Albumin/Globulin Ratio Lipase Urine Color Urine Appearance Urine pH Ur Specific [place] Urine Protein Urine Glucose (UA) Urine Ketones Urine Blood Urine Nitrite Urine Bilirubin Urine Urobilinogen Ur Leukocyte Esterase
[2019-11-26] MEDS: LACTATED RINGER'S 1,000 ML IV SCH (11:12)
--- NOTE | 2019-11-26 12:05 | Anesthesiology Consultation ---
Date of Service November 26, 2019 Assessment & Plan (1) Encounter for pre-operative examination: Chart Review Chart Review: Acceptable Risk for Surgery (will speak with Dr Dowell about urgency of procedure due to pulmonary congestion as well as INR) History Surgery Operation Date: 11/26/19 07:30 Proposed Procedures p Endoscopic Retrograde Cholangiopancreatogram - Demi Dowell MD Height/Weight Height: 5 ft 10 in Weight: 87.9 kg Allergies Allergy/AdvReac Type Severity Reaction Status Date / Time lisinopril AdvReac Mild COUGH Verified 11/12/19 05:49 Medications Home Medications Medication Instructions Recorded Confirmed Last Taken acetaminophen [Tylenol Extra 500 mg PO Q4 PRN 04/05/19 11/25/19 11/11/19 22:00 Strength] aspirin [Aspir-81] 81 mg PO QAM 04/05/19 11/25/19 11/11/19 08:00 atorvastatin 40 mg PO HS 04/05/19 11/25/19 11/11/19 22:00 docusate sodium 100 mg PO BID PRN 04/05/19 11/25/19 11/11/19 22:00 magnesium oxide 400 mg PO QPM 04/05/19 11/25/19 11/11/19 22:00 nitroglycerin [Nitrostat] 0.4 mg SUBLINGUAL DIRECTED PRN 04/05/19 11/25/19 Unknown polyethylene glycol 3350 [Miralax] 17 g PO DAILY PRN 04/05/19 11/25/19 11/05/19 12:00 sennosides 8.6 mg PO DAILY PRN 04/05/19 11/25/19 11/09/19 12:00 tamsulosin [Flomax] 0.4 mg PO HS 04/05/19 11/25/19 11/11/19 22:00 torsemide 20 mg PO UD 04/05/19 11/25/19 11/11/19 15:00 warfarin 5 mg PO QPM 04/05/19 11/25/19 11/05/19 17:00 zolpidem 5 mg PO HS PRN 04/05/19 11/25/19 11/10/19 22:00 gabapentin 100 mg PO TID 05/29/19 11/25/19 11/12/19 04:30 metoprolol succinate 25 mg PO QAM 05/29/19 11/25/19 11/12/19 04:30 spironolactone 25 mg PO BID 05/29/19 11/25/19 11/11/19 08:00 Lantus Solostar U-100 Insulin 75 - 100 unit SC HS 06/14/19 11/25/19 11/10/19 21:00 50 buspirone 10 mg PO TID 11/25/19 11/25/19 Unknown Active Medications Generic Name Dose Route Start Last Admin Trade Name Jorge Luisq PRN Reason Stop Dose Admin Buspirone HCl 10 mg 11/26/19 09:00 11/26/19 09:01 Buspar PO 12/26/19 08:59 10 mg TID ZAHRA Administration Gabapentin 100 mg 11/26/19 09:00 11/26/19 09:01 Neurontin PO 12/26/19 08:59 100 mg TID ZAHRA Administration Albumin Human 50 mls @ 50 mls/hr 11/26/19 08:00 11/26/19 08:47 Albumin 25% IV 11/29/19 07:59 Infused Q6H ZAHRA Infusion Piperacillin Sod/Tazobactam 115 mls @ 28.75 mls/hr 11/26/19 10:00 11/26/19 10:10 Sod 3.375 gm/ Dextrose IV 12/05/19 21:59 28.8 mls/hr Q8H ZAHRA Administration Protocol Lactated Ringer's 1,000 mls @ 80 mls/hr 11/26/19 09:45 11/26/19 11:12 Lr IV 12/26/19 09:44 80 mls/hr .[id number] ZAHRA Administration Insulin Aspart 0 units 11/26/19 06:55 11/26/19 08:05 Novolog Flexpen SC 12/26/19 06:54 Not Given ACHS ZAHRA Metoprolol Succinate 25 mg 11/26/19 09:00 11/26/19 08:57 Toprol Xl PO 12/26/19 08:59 25 mg QAM ZAHRA Administration Past Medical History Medical History Anxiety Aortic stenosis s/p TAVR with MV replacement 12/2016. Atrial fibrillation ON WARFARIN - FOLLOWS W/ DR. KOWALSKI Cardiac murmur Severe mitral annular calcification per 03/2019 echo. Limited echo, valves not well visualized. H/O MV repair and AVR. CHF (congestive heart failure) Cholecystitis, chronic Coronary artery disease s/p CABG 2002 Degenerative disc disease Diabetes mellitus, type II IDDM Diabetic neuropathy Diverticular disease Dyslipidemia GERD (gastroesophageal reflux disease) History of recent pneumonia HOSPITALIZED 03/2019 [facility] History of renal calculi Hypertension Ischemic cardiomyopathy EF 25-30%, pt refused ICD. On anticoagulant therapy SOB (shortness of breath) on exertion Spinal stenosis Stroke 2 YEARS AGO - WEAKNESS LEFT SIDE Transient ischemic attack (TIA) 2016 Past Family History Family History Unknown Family history non-contributory Past Surgical History Surgical History Difficult airway Glidescope #4 atraumatic attempt x 1, 04/05/19 History of aortic valve replacement History of TAVR complicated by prosthetic fracture and then underwent open surgical aortic valve replacement, mitral valve repair in 2016 History of cardiac cath 2 YEARS AGO - [facility] - NO STENTS/ANGIOPLASTY --> VALVE REPLACEMENT History of cardiac radiofrequency ablation For A flutter, 2005. History of cardioversion History of cataract surgery History of chest tube placement During admission 04/05 - 04/28 for empyema History of ERCP 04/09/19. Glidescope #4. History of mitral valve repair 01/22/2017 History of thoracentesis 04/10/19 Status post coronary artery bypass grafting 15 YEARS AGO - 3 VESSELS Social History Smoking Status: Never smoker tobacco type: smokeless tobacco Hx Alcohol Use: No Alcohol type: beer alcohol intake frequency: holidays/special occasions only Hx Substance Use: No substance use type: does not use Physical Exam Vital Signs Last Vital Signs Temp 36.4 C L 11/26/19 11:10 Pulse 74 11/26/19 11:10 Resp 16 11/26/19 11:10 BP 170/72 H 11/26/19 11:10 Pulse Ox 99 11/26/19 11:10 Testing Laboratory Results 11/26/19 07:52 11/26/19 07:52 PT 27.7 Seconds (9.0-12.0) H 11/26/19 07:52 INR 2.9 (0.9-1.1) H 11/26/19 07:52 Hemoglobin A1c 7.4 % (4.5-5.6) H 11/26/19 23:55 Urine Color Yellow 11/26/19 00:21 Urine Appearance Clear (Clear) 11/26/19 00:21 Urine pH 6.0 (4.5-7.5) 11/26/19 00:21 Ur Specific [place] 1.014 (1.000-1.030) 11/26/19 00:21 Urine Protein Negative (Negative) 11/26/19 00:21 Urine Glucose (UA) Negative (Negative) 11/26/19 00:21 Urine Ketones Negative (Negative) 11/26/19 00:21 Urine Nitrite Negative (Negative) 11/26/19 00:21 Ur Leukocyte Esterase Negative (Negative) 11/26/19 00:21 11/26/19 11/26/19 11:39 07:31 POC Glucose 119 H 138 H Electrocardiogram Date: 11/26/19 Findings: + AFIB @ (81) and + RBBB Chest X-Ray Date: 11/26/19 Findings: + pulmonary vascular congestion
--- NOTE | 2019-11-26 12:10 | Cardiology Consultation ---
Date of Consultation November 26, 2019 Assessment & Plan (1) Cholelithiasis: Plans for ERCP later today. Patient without absolute contraindications to proceeding. Chest x-ray with mild increased interstitial markings and pleural effusions reflecting hypoalbuminemia rather than profound volume overload Patient's cardiac issues are very complex but currently compensated. He would remain at elevated risk for further surgical procedures but if mandated by acute illness may need to consider proceeding with cholecystectomy Agree with antibiotic therapies as initiated continuing usual cardiac medications including Toprol. Anticoagulation currently on hold though plan on resuming when able We will follow closely as clinical course proceeds. Echocardiogram ordered for review (2) Ischemic cardiomyopathy: Will repeat echocardiogram reassess aortic valve and LV systolic function as clinical course progresses (3) CHF (congestive heart failure): Diuretics currently on hold will likely need to resume promptly upon completion of GI endoscopic assessment History of Present Illness Reason for Consultation: Preprocedural assessment Requesting Physician: Dr. Taj Durham Attending Physician: Taj Durham MD History of Present Illness Patient is a very complex 74-year-old male with ongoing cardiac issues as listed below 1. ASCVD s/p CABG in April 2003, SIERRA to the LAD, SVG to the ramus intermedius, and a free radial artery graft to the PDA. 2. Ischemic cardiomyopathy with LVEF 25-30%. ICD implantation declind. 3. Diagnostic cardiac catheterization on October 09, 2016 showed significant 3 vessel disease with 2 of 3 bypass grafts patent. The SVG to the ramus was known to be occluded. 4. Aortic valve stenosis. 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 Kauffman on 01/24/2017. 5. Atrial flutter status post radiofrequency catheter ablation of the tricuspid annulus/inferior vena cava isthmus in 6. Past paroxysmal and now chronic atrial fibrillation 7. Chronic coumadin anticoagulation 8. CVA in August of 2005 9. Carotid occlusive disease revealing 50 to 69% ZAKIYA stenosis and less than 50% LICA stenosis with heavily calcified plaque observed. 10. Type II diabetes mellitus with neuropathy. 11. Nocturnal hypoxemia, treated with supplemental oxygen therapy. 12. Hypertension 13. Hypertensive heart disease 14. Dyslipidemia 15. 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 Chest x-ray demonstrates mild increase in interstitial edema and pleural effusions. Patient denies any chest pain or discomfort notes no tachypalpitations that he is aware of notes no syncope or near syncope. Patient is very sedentary about home. Does go shopping but uses mobilize cart. No overt increase in weight or edema per patient appetite's been only fair. No bleeding difficulties, he remains on chronic anticoagulation. No recent neurologic complaints. No dysuria hematuria Allergies Allergy/AdvReac Type Severity Reaction Status Date / Time lisinopril AdvReac Mild COUGH Verified 11/12/19 05:49 Home Medications Home Medications Medication Instructions Recorded Confirmed Type acetaminophen [Tylenol Extra 500 mg PO Q4 PRN 04/05/19 11/25/19 History Strength] aspirin [Aspir-81] 81 mg PO QAM 04/05/19 11/25/19 History atorvastatin 40 mg PO HS 04/05/19 11/25/19 History docusate sodium 100 mg PO BID PRN 04/05/19 11/25/19 History magnesium oxide 400 mg PO QPM 04/05/19 11/25/19 History nitroglycerin [Nitrostat] 0.4 mg SUBLINGUAL DIRECTED PRN 04/05/19 11/25/19 History polyethylene glycol 3350 [Miralax] 17 g PO DAILY PRN 04/05/19 11/25/19 History sennosides 8.6 mg PO DAILY PRN 04/05/19 11/25/19 History tamsulosin [Flomax] 0.4 mg PO HS 04/05/19 11/25/19 History torsemide 20 mg PO UD 04/05/19 11/25/19 History warfarin 5 mg PO QPM 04/05/19 11/25/19 History zolpidem 5 mg PO HS PRN 04/05/19 11/25/19 History gabapentin 100 mg PO TID 05/29/19 11/25/19 History metoprolol succinate 25 mg PO QAM 05/29/19 11/25/19 History spironolactone 25 mg PO BID 05/29/19 11/25/19 History Lantus Solostar U-100 Insulin 75 - 100 unit SC HS 06/14/19 11/25/19 History buspirone 10 mg PO TID 11/25/19 11/25/19 History Patient History Medical History Anxiety Aortic stenosis s/p TAVR with MV replacement 12/2016. Atrial fibrillation ON WARFARIN - FOLLOWS W/ DR. CARRILLO Cardiac murmur Severe mitral annular calcification per 03/2019 echo. Limited echo, valves not well visualized. H/O MV repair and AVR. CHF (congestive heart failure) Cholecystitis, chronic Coronary artery disease s/p CABG 2002 Degenerative disc disease Diabetes mellitus, type II IDDM Diabetic neuropathy Diverticular disease Dyslipidemia GERD (gastroesophageal reflux disease) History of recent pneumonia HOSPITALIZED 03/2019 [facility] History of renal calculi Hypertension Ischemic cardiomyopathy EF 25-30%, pt refused ICD. On anticoagulant therapy SOB (shortness of breath) on exertion Spinal stenosis Stroke 2 YEARS AGO - WEAKNESS LEFT SIDE Transient ischemic attack (TIA) 2016 Surgical History Difficult airway Glidescope #4 atraumatic attempt x 1, 04/05/19 History of aortic valve replacement History of TAVR complicated by prosthetic fracture and then underwent open surgical aortic valve replacement, mitral valve repair in 2016 History of cardiac cath 2 YEARS AGO - [facility] - NO STENTS/ANGIOPLASTY --> VALVE REPLACEMENT History of cardiac radiofrequency ablation For A flutter, 2005. History of cardioversion History of cataract surgery History of chest tube placement During admission 04/05 - 04/28 for empyema History of ERCP 04/09/19. Glidescope #4. History of mitral valve repair 01/22/2017 History of thoracentesis 04/10/19 Status post coronary artery bypass grafting 15 YEARS AGO - 3 VESSELS Family History Unknown Family history non-contributory Social History Preferred Language: Swiss Communication Ability: Effective Fund Director Required: No Beliefs That Will Affect Care: None Current Living Situation: Spouse Other Information That Helps Us Care for You: No Feels Safe at Home: Yes Safety Concerns: Feels Safe At This Time Smoking Status: Never smoker Tobacco Type: smokeless tobacco ; Second Hand Exposure: Yes (ON [employer] PLAYING FRIENDS) ; Hx Alcohol Use: No Hx Substance Use: No Review of Systems Review of Systems: All systems reviewed & are unremarkable except as noted in HPI & below Physical Exam 2 Constitutional: Chronically ill-appearing male, obese but in no acute distress. Eyes: PERRL, conjunctivae normal, anicteric sclerae ENMT: external ear and nose normal, oropharynx normal Neck: trachea midline, no thyromegaly Respiratory: normal respiratory effort, lungs clear to auscultation Auscultation: + diminished lung sounds (Bibasilar) Cardiovascular: Rate/Rhythm: + irregularly irregular Heart Sounds: normal S1, normal S2 and + murmur (Grade 2/6 systolic); no gallop Palpation: normal PMI Vessels: normal carotid upstroke and radial pulses present; no JVD and no carotid bruit Extremities: + edema Gastrointestinal (Abdomen): normal bowel sounds, soft, nontender, no hepatosplenomegaly Musculoskeletal: no cyanosis or clubbing, extremities motor strength 5/5 Skin: no rashes, warm and dry Neurologic: PERRL, EOMI, accommodation nl, no face palsy, no dysarthria Psychiatric: A+Ox3, euthymic affect Results & Data ([facility]) Vital Signs (Past 12 Hours) Vital Signs Temp Pulse Pulse Resp BP BP Pulse Ox 11/26/19 11:10 36.4 C L 74 16 170/72 H 99 11/26/19 09:00 85 100/50 L 11/26/19 08:24 36.6 C 87 20 92/47 L 96 11/26/19 07:18 72 18 98 11/26/19 06:56 36.5 C 84 16 90/47 L 100 11/26/19 06:42 36.5 C 80 22 136/78 100 11/26/19 06:11 84 18 104/77 100 11/26/19 01:30 72 23 109/49 L 98 11/26/19 01:00 78 24 113/57 L 97 11/26/19 00:31 76 25 H 97 11/26/19 00:30 76 22 111/35 L 96 Laboratory Results Laboratory Results - last 24 hr 02/26/20 02/26/20 02/26/20 23:54 23:55 23:55 WBC 13.38 H RBC 4.66 L Hgb 11.6 L Hct 37.0 L MCV 79.4 L MCH 24.9 L MCHC 31.4 L RDW Std Deviation 53.2 H RDW Coeff of Abi 18.3 H Plt Count 202 MPV 10.0 Immature Gran % (Auto) 0.1 Neut % (Auto) 90.7 Lymph % (Auto) 4.4 Gila % (Auto) 4.4 Eos % (Auto) 0.3 Baso % (Auto) 0.1 Immature Gran # (Auto) 0.02 Neut # (Auto) 12.12 H Lymph # (Auto) 0.59 L Gila # (Auto) 0.59 Eos # (Auto) 0.04 Baso # (Auto) 0.02 PT INR Sodium 138 Potassium 3.8 Chloride 104 Carbon Dioxide 26 Anion Gap 8.0 BUN 42 H Creatinine 1.34 Est Cr Clr Drug Dosing Not Reportable Est GFR ( Amer) 60.1 Est GFR (Non-Af Amer) 51.8 BUN/Creatinine Ratio 31.4 H Glucose 294 H POC Glucose Estimat Average Glucose Hemoglobin A1c Lactate Calcium 8.1 L Magnesium 2.3 Total Bilirubin 0.7 AST 16 ALT 17 Alkaline Phosphatase 89 Troponin I 0.024 NT-Pro-B Natriuret Pep 5035 H Total Protein 6.5 Albumin 2.6 L Globulin 3.9 Albumin/Globulin Ratio 0.7 L Lipase 166 Urine Color Urine Appearance Urine pH Ur Specific Warren Urine Protein Urine Glucose (UA) Urine Ketones Urine Blood Urine Nitrite Urine Bilirubin Urine Urobilinogen Ur Leukocyte Esterase 11/25/19 11/26/19 11/26/19 23:55 00:21 02:15 WBC RBC Hgb Hct MCV MCH MCHC RDW Std Deviation RDW Coeff of Abi Plt Count MPV Immature Gran % (Auto) Neut % (Auto) Lymph % (Auto) Gila % (Auto) Eos % (Auto) Baso % (Auto) Immature Gran # (Auto) Neut # (Auto) Lymph # (Auto) Gila # (Auto) Eos # (Auto) Baso # (Auto) PT 27.5 H INR 2.9 H Sodium Potassium Chloride Carbon Dioxide Anion Gap BUN Creatinine Est Cr Clr Drug Dosing Est GFR ( Amer) Est GFR (Non-Af Amer) BUN/Creatinine Ratio Glucose POC Glucose Estimat Average Glucose Hemoglobin A1c Lactate 1.5 Calcium Magnesium Total Bilirubin AST ALT Alkaline Phosphatase Troponin I NT-Pro-B Natriuret Pep Total Protein Albumin Globulin Albumin/Globulin Ratio Lipase Urine Color Yellow Urine Appearance Clear Urine pH 6.0 Ur Specific Warren 1.014 Urine Protein Negative Urine Glucose (UA) Negative Urine Ketones Negative Urine Blood Negative Urine Nitrite Negative Urine Bilirubin Negative Urine Urobilinogen Negative Ur Leukocyte Esterase Negative 11/26/19 11/26/19 11/26/19 07:31 07:52 07:52 WBC 10.45 RBC 4.78 Hgb 11.9 L Hct 38.3 L MCV 80.1 MCH 24.9 L MCHC 31.1 L RDW Std Deviation 53.8 H RDW Coeff of Abi 18.3 H Plt Count 184 MPV 10.2 Immature Gran % (Auto) 0.2 Neut % (Auto) 84.3 Lymph % (Auto) 5.7 Gila % (Auto) 9.0 Eos % (Auto) 0.6 Baso % (Auto) 0.2 Immature Gran # (Auto) 0.02 Neut # (Auto) 8.81 H Lymph # (Auto) 0.60 L Gila # (Auto) 0.94 H Eos # (Auto) 0.06 Baso # (Auto) 0.02 PT INR Sodium 138 Potassium 3.7 Chloride 105 Carbon Dioxide 28 Anion Gap 6.0 BUN 39 H Creatinine 1.27 Est Cr Clr Drug Dosing 57.0 Est GFR ( Amer) 64.1 Est GFR (Non-Af Amer) 55.3 BUN/Creatinine Ratio 30.9 H Glucose 136 H POC Glucose 138 H Estimat Average Glucose Hemoglobin A1c Lactate Calcium 8.6 Magnesium Total Bilirubin 1.0 AST 13 L ALT 15 Alkaline Phosphatase 86 Troponin I NT-Pro-B Natriuret Pep Total Protein 6.7 Albumin 2.5 L Globulin 4.2 H Albumin/Globulin Ratio 0.6 L Lipase Urine Color Urine Appearance Urine pH Ur Specific Warren Urine Protein Urine Glucose (UA) Urine Ketones Urine Blood Urine Nitrite Urine Bilirubin Urine Urobilinogen Ur Leukocyte Esterase 11/26/19 11/26/19 11/26/19 07:52 07:52 11:39 WBC RBC Hgb Hct MCV MCH MCHC RDW Std Deviation RDW Coeff of Abi Plt Count MPV Immature Gran % (Auto) Neut % (Auto) Lymph % (Auto) Gila % (Auto) Eos % (Auto) Baso % (Auto) Immature Gran # (Auto) Neut # (Auto) Lymph # (Auto) Gila # (Auto) Eos # (Auto) Baso # (Auto) PT 27.7 H INR 2.9 H Sodium Potassium Chloride Carbon Dioxide Anion Gap BUN Creatinine Est Cr Clr Drug Dosing Est GFR ( Amer) Est GFR (Non-Af Amer) BUN/Creatinine Ratio Glucose POC Glucose 119 H Estimat Average Glucose Hemoglobin A1c Lactate Calcium Magnesium 2.6 H Total Bilirubin AST ALT Alkaline Phosphatase Troponin I NT-Pro-B Natriuret Pep Total Protein Albumin Globulin Albumin/Globulin Ratio Lipase Urine Color Urine Appearance Urine pH Ur Specific Warren Urine Protein Urine Glucose (UA) Urine Ketones Urine Blood Urine Nitrite Urine Bilirubin Urine Urobilinogen Ur Leukocyte Esterase 11/26/19 23:55 WBC RBC Hgb Hct MCV MCH MCHC RDW Std Deviation RDW Coeff of Abi Plt Count MPV Immature Gran % (Auto) Neut % (Auto) Lymph % (Auto) Gila % (Auto) Eos % (Auto) Baso % (Auto) Immature Gran # (Auto) Neut # (Auto) Lymph # (Auto) Gila # (Auto) Eos # (Auto) Baso # (Auto) PT INR Sodium Potassium Chloride Carbon Dioxide Anion Gap BUN Creatinine Est Cr Clr Drug Dosing Est GFR ( Amer) Est GFR (Non-Af Amer) BUN/Creatinine Ratio Glucose POC Glucose Estimat Average Glucose 166 Hemoglobin A1c 7.4 H Lactate Calcium Magnesium Total Bilirubin AST ALT Alkaline Phosphatase Troponin I NT-Pro-B Natriuret Pep Total Protein Albumin Globulin Albumin/Globulin Ratio Lipase Urine Color Urine Appearance Urine pH Ur Specific Warren Urine Protein Urine Glucose (UA) Urine Ketones Urine Blood Urine Nitrite Urine Bilirubin Urine Urobilinogen Ur Leukocyte Esterase ECG Additional Comments: Atrial fibrillation with bifascicular heart block, right bundle branch block, left anterior fascicular block
--- NOTE | 2019-11-26 12:28 | History & Physical Bridge Note ---
Date of Service November 26, 2019 History & Physical Bridge Note I have examined the patient, reviewed the History & Physical and in the interval since the performance of the History & Physical I have noted the following changes of clinical significance: no changes noted ERCP today
[2019-11-26] MEDS ORDERED: ONDANSETRON INJ 2 MG/ML 2 ML VIAL ONE (13:43)
[2019-11-26] MEDS ORDERED: PROPOFOL IV EMULSION 10 MG/ML 20 ML VIAL IV ONE (13:43)
[2019-11-26] MEDS ORDERED: LIDOCAINE HCL 2% 2 ML VIAL/AMP(20MG/ML) INFIL ONE (13:43)
[2019-11-26] MEDS ORDERED: GLYCOPYRROLATE 0.2 MG/ML VIAL ONE (13:43)
[2019-11-26] MEDS ORDERED: PHENYLEPHRINE 100MCG/ML 5ML SYR ONE (13:58)
--- NOTE | 2019-11-26 14:26 | Operative Report ---
Post Operative Report Pre & Post Diagnosis Operation Date: 11/26/19 07:30 <No data on this case meets the specified criteria> I identified the patient and participated in the time-out.: Yes Procedure Operation Date: 11/26/19 07:30 <No data on this case meets the specified criteria> Surgeon Demi Dowell MD Mercury Washer None Estimated Blood Loss 0 Findings See Below (Cholangitis) Specimens None Description of Procedure ERCP with stents I attest to the content of the Intraoperative Record and any orders documented therein. Any exceptions are noted below.
--- NOTE | 2019-11-26 15:10 | Anesthesiology Progress Note ---
Date of Service November 26, 2019 Anesthesia Post Procedure Vital Signs Vital Signs: Temp Pulse Pulse Resp BP BP Pulse Ox 11/26/19 14:55 36.7 C 87 20 118/84 100 11/26/19 14:45 95 H 17 114/52 L 99 11/26/19 14:38 36.3 C L 87 16 131/73 99 11/26/19 12:27 36.8 C 70 18 129/36 L 100 11/26/19 11:10 36.4 C L 74 16 170/72 H 99 11/26/19 09:00 85 100/50 L 11/26/19 08:24 36.6 C 87 20 92/47 L 96 11/26/19 07:18 72 18 98 11/26/19 06:56 36.5 C 84 16 90/47 L 100 11/26/19 06:42 36.5 C 80 22 136/78 100 11/26/19 06:11 84 18 104/77 100 11/26/19 01:30 72 23 109/49 L 98 11/26/19 01:00 78 24 113/57 L 97 11/26/19 00:31 76 25 H 97 11/26/19 00:30 76 22 111/35 L 96 11/26/19 00:05 96 11/26/19 00:00 21 97 11/25/19 23:43 36.9 C 85 26 H 118/64 96 11/25/19 23:30 26 H 96 11/25/19 23:25 96 H 34 H 96 11/25/19 23:23 90 27 H 118/64 96 Transfer of Care Handoff Completed per policy Notes Mental Status: alert / awake / arousable Patient Amnestic to Procedure: Yes Nausea / Vomiting: adequately controlled Pain: adequately controlled Airway Patency, RR, SpO2: stable & adequate BP & HR: stable & adequate Hydration State: stable & adequate Anesthetic Complications: no major complications apparent
--- NOTE | 2019-11-26 15:51 | Fluoroscopy Report ---
[place] ERCP biliary ductal CLINICAL HISTORY: EXPLORE DUCTScholedocholithiasis COMPARISON STUDY: 11/12/2019 FLUOROSCOPY TIME: 13 seconds NUMBER OF FLUOROSCOPIC IMAGES: 5 FINDINGS: Image intensifier support was provided for retrograde evaluation of the biliary ductal syst em. No significant stenosis is appreciated. Filling defects are present which are most likely related to air bubbles. Possibility of choledocholi thiasis is considered. This is considered, however less likely. This images followed by placement of right stent IMPRESSION: Image intensifier support for ERCP ACT 112: Negative or not required by law. The above report was generated using voice recognition software. It may contain grammatical, syntax or spelling errors. Electronically signed by: Kenneth Ortiz M.D. 11/26/2019 3:50 PM
[2019-11-26] MEDS ORDERED: Nursing to Pharmacy Communication ONE ×2 (17:52→18:50)
[2019-11-26] MEDS ORDERED: INSULIN ASPART 100 UNITS/ML 3 ML PEN SC SCH (18:00)
--- NOTE | 2019-11-26 18:02 | GI REPORT ---
Patient Name: Domenico Bustillo Procedure Date: 11/26/2019 1:04 PM Date of : 1945 Admit Type: Inpatient Age: 74 Gender: Male Attending MD: Demi Dowell MD Procedure: ERCP Providers: Demi Dowell MD Referring MD: Royce Vargas DO Indications: Abdominal pain of suspected biliary origin, Evaluation and possible treatment of bile duct stone(s), For therapy of ascending cholangitis Medicines: Propofol per Anesthesia Complications: No immediate complications. Estimated Blood Loss: Estimated blood loss: none. Procedure: Pre-Anesthesia Assessment: - Prior to the procedure, a History and Physical was performed, and patient medications, allergies and sensitivities were reviewed. The patient's tolerance of previous anesthesia was reviewed. - The risks and benefits of the procedure and the sedation options and risks were discussed with the patient. All questions were answered and informed consent was obtained. - Patient identification and proposed procedure were verified prior to the procedure by the physician and the nurse. The procedure was verified in the procedure room. - Pre-procedure physical examination revealed no contraindications to sedation. After obtaining informed consent, the scope was passed under direct vision. Throughout the procedure, the patient's blood pressure, pulse, and oxygen saturations were monitored continuously. The Scope was introduced through the mouth, and advanced to the duodenum and used to inject contrast into the bile duct. The ERCP was accomplished without difficulty. The patient tolerated the procedure well. 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 The esophagus was successfully intubated under direct vision. The scope was advanced to a normal major papilla in the descending duodenum without detailed examination of the pharynx, larynx and associated structures, and upper GI tract. The upper GI tract was grossly normal. A biliary sphincterotomy had been performed. The sphincterotomy appeared open. A 0.035 inch straight standard wire was passed into the biliary tree. The Fusion OMNI sphincterotome was passed over the guidewire and the bile duct was then deeply cannulated. An immediate gush of pus was flowing out of the duct. The duct was aspirated prior to injection. Contrast was injected. I personally interpreted the bile duct images. Ductal flow of contrast was adequate. Image quality was adequate. Contrast extended to the main bile duct. The main bile duct was moderately dilated. The largest diameter was 9 mm. Opacification of the gallbladder and left and right hepatic ducts and intrahepatic branches was successful. The lower third of the main bile duct and gallbladder contained stone(s). To discover objects, the biliary tree was swept with a 12 mm balloon starting at the bifurcation. Pus was swept from the duct. A few black stones were removed. No stones remained. I was able to cannulate the cystic duct and advance the guidewire deep into the gallbladder and then advance the balloon into the gallbladder in a plan to place a stent in the gallbladder however the required size and diameter of the needed stent is not available hence no stent placed in the gallbladder. There was adequate flow of contrast indicating patency of the cystic duct. One 10 Fr by 7 cm plastic biliary stent with a single external flap and a single internal flap was placed into the common bile duct. Bile flowed through the stent. The stent was in good position. One 10 Fr by 4 cm plastic biliary stent with a single external pigtail and a single internal pigtail was placed into the common bile duct. Bile flowed through the stent. The stent was in good position. PD was not cannulated. Impression: - Choledocholithiasis was found. Complete removal was accomplished by balloon extraction. - The biliary tree was swept and pus was found consistent with acute cholangitis. - Two plastic biliary stents were placed into the common bile duct. - The cystic duct is patent at this time. Recommendation: - [facility]. - Continue ABx and plan to complete a 10 days course. - Refer to General surgery at [facility], as OP for evaluation of cholecystectomy, if deemed a non surgical candidate then I will arrange to place a cholecystoduodenostomy using a lumen apposing metal stent for snf drainage. - Repeat ERCP to remove stent after the above. Demi Dowell MD 11/26/2019 6:01:42 PM This report has been signed electronically. Note Initiated On: 11/26/2019 1:04 PM Number of Addenda: 0 I attest to the content of the Intraoperative Record and orders documented therein, exceptions below {[id number]}
[2019-11-26] MEDS: ACETAMINOPHEN 325 MG TAB PO PRN (18:29)
--- NOTE | 2019-11-26 18:59 | Electrocardiogram Report ---
Test Reason : Blood Pressure : / mmHG Vent. Rate : 081 BPM Atrial Rate : 084 BPM P-R Int : 000 ms QRS Dur : 172 ms QT Int : 422 ms P-R-T Axes : 000 267 039 degrees QTc Int : 490 ms Atrial fibrillation Right bundle branch block Inferior infarct (cited on or before 11-APR-2019) Abnormal ECG Confirmed by Daryn Bettencourt ([id number]) on 11/26/2019 6:59:13 PM Referred By: REFERRED SELF Confirmed By:Rick Bettencourt
[2019-11-26] MEDS: TAMSULOSIN HCL 0.4 MG CAP PO SCH (20:40)
[2019-11-26] MEDS: ATORVASTATIN 40 MG TAB PO SCH (20:41)
[2019-11-26] MEDS: TRAMADOL HCL 50 MG TABLET PO PRN (20:41)
[2019-11-26] MEDS ORDERED: INSULIN GLARGINE SOLOSTAR 100 UNITS/ML 3 ML PEN SC SCH (21:00)
[2019-11-26] MEDS ORDERED: LORazepam 0.5 MG TAB PO STA (21:41)
[2019-11-27] MEDS: MoRPHine SULFATE 4 MG/ML 1 ML CARP\\VIAL IV PRN ×4 (00:54→18:29)
[2019-11-27] MEDS: LACTATED RINGER'S 1,000 ML IV SCH (00:56)
[2019-11-27] MEDS: ALBUMIN 25% 50 ML IV SCH (01:15)
[2019-11-27] MEDS: PIPERACILLIN/TAZOBACTAM 3.375 GM in DEXTROSE 5% 100 ML IV SCH ×3 (02:14→18:22)
[2019-11-27] MEDS: TRAMADOL HCL 50 MG TABLET PO PRN ×2 (02:21→12:28)
[2019-11-27] MEDS: INSULIN ASPART 100 UNITS/ML 3 ML PEN SC SCH ×4 (08:37→20:54)
[2019-11-27] MEDS: INSULIN GLARGINE SOLOSTAR 100 UNITS/ML 3 ML PEN SC SCH (08:38)
[2019-11-27] MEDS: GABAPENTIN 100 MG CAP PO SCH ×3 (08:38→20:02)
[2019-11-27] MEDS: METOPROLOL SUCC 25MG EXT REL TAB PO SCH (08:38)
--- NOTE | 2019-11-27 09:14 | Anesthesiology Progress Note ---
Date of Service November 27, 2019 Anesthesia Post Procedure Vital Signs Vital Signs: Temp Pulse Pulse Pulse Resp BP BP 11/27/19 07:02 36.6 C 94 H 17 123/68 11/27/19 04:39 36.5 C 95 H 18 152/75 H 11/27/19 02:15 36.5 C 85 16 120/56 L 11/27/19 01:35 36.7 C 83 16 117/59 L 11/27/19 01:14 36.4 C L 85 16 110/43 L 11/27/19 00:52 36.7 C 82 18 98/37 L 11/27/19 00:00 83 11/26/19 21:38 98/51 L 11/26/19 20:04 70/50 L 11/26/19 19:51 36.9 C 76 20 64/40 L 64/40 L 11/26/19 17:09 85 11/26/19 15:38 36.2 C L 84 18 131/60 11/26/19 15:05 36.7 C 84 13 97/76 L 11/26/19 14:55 36.7 C 87 20 118/84 11/26/19 14:45 95 H 17 114/52 L 11/26/19 14:38 36.3 C L 87 16 131/73 11/26/19 12:27 36.8 C 70 18 129/36 L 11/26/19 11:10 36.4 C L 74 16 170/72 H Pulse Ox 11/27/19 07:02 95 11/27/19 04:39 98 11/27/19 02:15 95 11/27/19 01:35 98 11/27/19 01:14 98 11/27/19 00:52 96 11/27/19 00:00 11/26/19 21:38 11/26/19 20:04 11/26/19 19:51 98 11/26/19 17:09 11/26/19 15:38 99 11/26/19 15:05 98 11/26/19 14:55 100 11/26/19 14:45 99 11/26/19 14:38 99 11/26/19 12:27 100 11/26/19 11:10 99 Pain Intensity Right Upper Flank: Pain Intensity: 9 Notes Mental Status: alert / awake / arousable and participated in evaluation Patient Amnestic to Procedure: Yes Nausea / Vomiting: adequately controlled Pain: adequately controlled Airway Patency, RR, SpO2: stable & adequate BP & HR: stable & adequate Hydration State: stable & adequate Anesthetic Complications: no major complications apparent and Pt Satisfied with anesthetic care
[2019-11-27 09:28] LABS: Basophils # (auto) 0.02 K/uL (0-0.2); Basophils % (auto) 0.2 %; Eosinophils # (auto) 0.01 K/uL (0-0.5); Eosinophils % (auto) 0.1 %; Hematocrit (blood only) 41.3 % (42-52); Hemoglobin 12.6 g/dL (14.0-18.0); Immature Granulocytes # (auto) 0.03 K/uL (0.00-0.02); Immature Granulocytes % (auto) 0.2 %; Lymphocytes # (auto) 0.68 K/uL (1.2-3.4); Lymphocytes % (auto) 5.2 %; Mean Corpuscular Hemoglobin 24.8 pg (25-34); Mean Corpuscular Hgb Conc 30.5 g/dL (32-36); Mean Corpuscular Volume 81.3 fL (80-100); Mean Platelet Volume 10.7 fL (7.4-10.4); Monocytes # (auto) 0.78 K/uL (0.11-0.59); Monocytes % (auto) 5.9 %; Neutrophils # (auto) 11.65 K/uL (1.4-6.5); Neutrophils % (auto) 88.4 %; Platelet Count 192 K/uL (130-400); RDW Coefficient of Variation 18.3 % (11.5-14.5); RDW Standard Deviation 54.5 fL (36.4-46.3); Red Blood Count 5.08 M/uL (4.7-6.1); White Blood Count 13.17 K/uL (4.8-10.8)
[2019-11-27 09:37] LABS: INR 1.4 (0.9-1.1); Prothrombin Time 13.7 Seconds (9.0-12.0)
--- NOTE | 2019-11-27 09:39 | Cardiology Progress Note ---
Date of Service November 27, 2019 Assessment & Plan (1) Cholelithiasis: Purulent disease discerned at time of ERCP. Currently on antibiotic therapies No cardiac complaints this morning though ultimately will likely need cholecystectomy. No current signs of angina or congestive heart failure echocardiogram preliminary review is unchanged from prior studies with formal interpretation pending Patient at elevated risk for surgical interventions but has failed conservative management Patient anticipates tertiary care center intervention (2) Ischemic cardiomyopathy: Will repeat echocardiogram reassess aortic valve and LV systolic function as clinical course progresses (3) CHF (congestive heart failure): Diuretics currently on hold will likely need to resume promptly upon completion of GI endoscopic assessment Subjective Patient seen and examined, chart, medications, telemetry reviewed. Mild right upper quadrant pain and nausea this morning but otherwise no complaints. No dizziness or lightheadedness. No chest pain or worsening shortness of breath. Physical Exam Eyes: PERRL, conjunctivae normal, anicteric sclerae ENMT: external ear and nose normal, oropharynx normal Neck: trachea midline, no thyromegaly Respiratory: normal respiratory effort, lungs clear to auscultation Auscultation: + diminished lung sounds (Bibasilar) Cardiovascular: Rate/Rhythm: + irregularly irregular Heart Sounds: normal S1, normal S2 and + murmur (Grade 2/6 systolic); no gallop Palpation: normal PMI Vessels: normal carotid upstroke and radial pulses present; no JVD and no carotid bruit Extremities: + edema Gastrointestinal (Abdomen): normal bowel sounds, soft, nontender, no hepatosplenomegaly Musculoskeletal: no cyanosis or clubbing, extremities motor strength 5/5 Skin: no rashes, warm and dry Neurologic: PERRL, EOMI, accommodation nl, no face palsy, no dysarthria Psychiatric: A+Ox3, euthymic affect Results & Data Vital Signs (Past 12 Hours) Vital Signs Temp Pulse Pulse Resp BP BP Pulse Ox 11/27/19 07:02 36.6 C 94 H 17 123/68 95 11/27/19 04:39 36.5 C 95 H 18 152/75 H 98 11/27/19 02:15 36.5 C 85 16 120/56 L 95 11/27/19 01:35 36.7 C 83 16 117/59 L 98 11/27/19 01:14 36.4 C L 85 16 110/43 L 98 11/27/19 00:52 36.7 C 82 18 98/37 L 96 11/27/19 00:00 83 11/26/19 21:38 98/51 L Laboratory Results Laboratory Results - last 24 hr 11/26/19 11/26/19 11/26/19 02:15 07:52 11:39 WBC RBC Hgb Hct MCV MCH MCHC RDW Std Deviation RDW Coeff of Abi Plt Count MPV Immature Gran % (Auto) Neut % (Auto) Lymph % (Auto) [place] % (Auto) Eos % (Auto) Baso % (Auto) Immature Gran # (Auto) Neut # (Auto) Lymph # (Auto) [place] # (Auto) Eos # (Auto) Baso # (Auto) PT INR Sodium Potassium Chloride Carbon Dioxide Anion Gap BUN Creatinine Est Cr Clr Drug Dosing Est GFR ( Amer) Est GFR (Non-Af Amer) BUN/Creatinine Ratio Glucose POC Glucose 119 H Lactate Calcium Magnesium 2.6 H Total Bilirubin Direct Bilirubin AST ALT Alkaline Phosphatase Total Protein Albumin Bld Cult Staph aureus PCR Positive A Blood Culture MRSA PCR Negative 11/26/19 11/26/19 11/26/19 14:39 18:37 20:22 WBC RBC Hgb Hct MCV MCH MCHC RDW Std Deviation RDW Coeff of Abi Plt Count MPV Immature Gran % (Auto) Neut % (Auto) Lymph % (Auto) [place] % (Auto) Eos % (Auto) Baso % (Auto) Immature Gran # (Auto) Neut # (Auto) Lymph # (Auto) [place] # (Auto) Eos # (Auto) Baso # (Auto) PT INR Sodium Potassium Chloride Carbon Dioxide Anion Gap BUN Creatinine Est Cr Clr Drug Dosing Est GFR ( Amer) Est GFR (Non-Af Amer) BUN/Creatinine Ratio Glucose POC Glucose 131 H 95 222 H Lactate Calcium Magnesium Total Bilirubin Direct Bilirubin AST ALT Alkaline Phosphatase Total Protein Albumin Bld Cult Staph aureus PCR Blood Culture MRSA PCR 11/26/19 11/27/19 11/27/19 20:51 07:30 08:55 WBC 13.17 H RBC 5.08 Hgb 12.6 L Hct 41.3 L MCV 81.3 MCH 24.8 L MCHC 30.5 L RDW Std Deviation 54.5 H RDW Coeff of Abi 18.3 H Plt Count 192 MPV 10.7 H Immature Gran % (Auto) 0.2 Neut % (Auto) 88.4 Lymph % (Auto) 5.2 [place] % (Auto) 5.9 Eos % (Auto) 0.1 Baso % (Auto) 0.2 Immature Gran # (Auto) 0.03 H Neut # (Auto) 11.65 H Lymph # (Auto) 0.68 L [place] # (Auto) 0.78 H Eos # (Auto) 0.01 Baso # (Auto) 0.02 PT INR Sodium Potassium Chloride Carbon Dioxide Anion Gap BUN Creatinine Est Cr Clr Drug Dosing Est GFR ( Amer) Est GFR (Non-Af Amer) BUN/Creatinine Ratio Glucose POC Glucose 124 H Lactate 1.8 Calcium Magnesium Total Bilirubin Direct Bilirubin AST ALT Alkaline Phosphatase Total Protein Albumin Bld Cult Staph aureus PCR Blood Culture MRSA PCR 11/27/19 11/27/19 08:55 08:55 WBC RBC Hgb Hct MCV MCH MCHC RDW Std Deviation RDW Coeff of Abi Plt Count MPV Immature Gran % (Auto) Neut % (Auto) Lymph % (Auto) [place] % (Auto) Eos % (Auto) Baso % (Auto) Immature Gran # (Auto) Neut # (Auto) Lymph # (Auto) [place] # (Auto) Eos # (Auto) Baso # (Auto) PT Pending INR Pending Sodium Pending Potassium Pending Chloride Pending Carbon Dioxide Pending Anion Gap Pending BUN Pending Creatinine Pending Est Cr Clr Drug Dosing Pending Est GFR ( Amer) Pending Est GFR (Non-Af Amer) Pending BUN/Creatinine Ratio Pending Glucose Pending POC Glucose Lactate Calcium Pending Magnesium Total Bilirubin Pending Direct Bilirubin Pending AST Pending ALT Pending Alkaline Phosphatase Pending Total Protein Pending Albumin Pending Bld Cult Staph aureus PCR Blood Culture MRSA PCR
[2019-11-27 09:50] LABS: Albumin Level 2.9 gm/dl (3.4-5.0); BUN Creatinine Ratio 24.5 (10-20); Bilirubin Direct 1.7 mg/dl (0-0.2); Creatinine Clr Calc Pharmacy 56.8 ml/min; Est GFR (African American) 63.5; Est GFR (Non-African American) 54.8; Potassium 4.4 mmol/L (3.5-5.1)
[2019-11-27 09:53] LABS: Total Protein 7.1 gm/dl (6.4-8.2)
[2019-11-27] MEDS ORDERED: DAPTOMYCIN CONSULT ACTIVE PRN (14:11)
--- NOTE | 2019-11-27 15:28 | Hospitalist Progress Note ---
Date of Service November 27, 2019 Assessment & Plan (1) Right flank pain: 74-year-old male with history of cholelithiasis, systolic CHF, ischemic cardiomyopathy of 30 to 35%, coronary disease/CABG, Aortic stenosis status post TAVR, atrial fibrillation on Coumadin, history of CVA, diabetes type 2 presenting with right leg pain. Acute cholangitis with choledocholithiasis; cholelithiasis --Evaluated by general surgery service Right flank pain felt to be secondary to choledocholithiasis --GI consulted, ERCP be performed 11/26/2019 CBD stone removed, pus also drained from common bile duct, stents placed --Blood cultures: 1 bottle positive for gram-positive cocci in clusters Continue to follow-up closely --Blood PCR negative for MRSA --Continue Zosyn GI recommends outpatient cholecystectomy --Advance diet as tolerated History of chronic systolic congestive heart failure, ischemic cardiomyopathy 30 to 35% --Evaluated by cardiology service preoperatively --Diuretics on hold for now Euvolemic History of CAD, CABG --No active chest pain Aspirin on hold, continue metoprolol, Lipitor Atrial fibrillation on chronic Coumadin --INR 2.9, vitamin K given, monitor INR Coumadin on hold for now in light of procedure per #1 Diabetes type 2 --Sliding scale History of CVA --Aspirin on hold DVT prophylaxis SCDs for now Disposition Pending Anticipate discharge to home when medically stable Admission and Anticipated Discharge Date Admission Date: November 26, 2019 Subjective Follow-up for acute cholangitis, other problems noted below Seen resting in bed, comfortable, sitting up, more comfortable than yes States he feels better than yesterday Still having right upper quadrant/right flank pain but improving Denies nausea vomiting, tolerating clear liquids diet Would like to have diet advance Denies chest pain, shortness of breath, palpitations, dizziness Fevers or chills, no other symptom Review of Systems Review of Systems: All systems reviewed & are unremarkable except as noted in HPI & below Physical Exam Physical Exam: General- oriented x 3, not in distress, speaks in sentences with no effort or accessory muscle use Eyes- anicteric Neck- no JVD Lungs- clear breath sounds bilaterally, no rales/wheezes Heart- normal rate, regular rhythm; no murmurs Abdomen- normal bowel sounds, nondistended, soft, mild upper right upper quadrant tenderness Extremities- no pretibial edema, no calf tenderness Neuro- alert, oriented x 3; no gross focal neurologic deficits Skin- warm & dry Results & Data ([facility]) Vital Signs (Past 12 Hours) Vital Signs Temp Pulse Pulse Resp BP Pulse Ox 11/27/19 15:17 90 11/27/19 12:00 36.8 C 102 H 18 105/68 96 11/27/19 08:45 92 H 11/27/19 07:02 36.6 C 94 H 17 123/68 95 11/27/19 04:39 36.5 C 95 H 18 152/75 H 98 Laboratory Results Laboratory Results - last 24 hr 11/26/19 11/26/19 11/26/19 02:15 20:22 20:51 WBC RBC Hgb Hct MCV MCH MCHC RDW Std Deviation RDW Coeff of Abi Plt Count MPV Immature Gran % (Auto) Neut % (Auto) Lymph % (Auto) [place] % (Auto) Eos % (Auto) Baso % (Auto) Immature Gran # (Auto) Neut # (Auto) Lymph # (Auto) [place] # (Auto) Eos # (Auto) Baso # (Auto) PT INR Sodium Potassium Chloride Carbon Dioxide Anion Gap BUN Creatinine Est Cr Clr Drug Dosing Est GFR ( Amer) Est GFR (Non-Af Amer) BUN/Creatinine Ratio Glucose POC Glucose 222 H Lactate 1.8 Calcium Total Bilirubin Direct Bilirubin AST ALT Alkaline Phosphatase Total Protein Albumin Bld Cult Staph aureus PCR Positive A Blood Culture MRSA PCR Negative 11/27/19 11/27/19 11/27/19 07:30 08:55 08:55 WBC 13.17 H RBC 5.08 Hgb 12.6 L Hct 41.3 L MCV 81.3 MCH 24.8 L MCHC 30.5 L RDW Std Deviation 54.5 H RDW Coeff of Abi 18.3 H Plt Count 192 MPV 10.7 H Immature Gran % (Auto) 0.2 Neut % (Auto) 88.4 Lymph % (Auto) 5.2 [place] % (Auto) 5.9 Eos % (Auto) 0.1 Baso % (Auto) 0.2 Immature Gran # (Auto) 0.03 H Neut # (Auto) 11.65 H Lymph # (Auto) 0.68 L [place] # (Auto) 0.78 H Eos # (Auto) 0.01 Baso # (Auto) 0.02 PT INR Sodium 137 Potassium 4.4 D Chloride 104 Carbon Dioxide 24 Anion Gap 9.0 BUN 31 H Creatinine 1.28 Est Cr Clr Drug Dosing 56.8 Est GFR ( Amer) 63.5 Est GFR (Non-Af Amer) 54.8 BUN/Creatinine Ratio 24.5 H Glucose 124 H POC Glucose 124 H Lactate Calcium 9.0 Total Bilirubin 3.0 H D Direct Bilirubin 1.7 H AST 78 H ALT 57 Alkaline Phosphatase 154 H Total Protein 7.1 Albumin 2.9 L Bld Cult Staph aureus PCR Blood Culture MRSA PCR 11/27/19 11/27/19 11/27/19 08:55 11:32 16:09 WBC RBC Hgb Hct MCV MCH MCHC RDW Std Deviation RDW Coeff of Abi Plt Count MPV Immature Gran % (Auto) Neut % (Auto) Lymph % (Auto) [place] % (Auto) Eos % (Auto) Baso % (Auto) Immature Gran # (Auto) Neut # (Auto) Lymph # (Auto) [place] # (Auto) Eos # (Auto) Baso # (Auto) PT 13.7 H INR 1.4 H Sodium Potassium Chloride Carbon Dioxide Anion Gap BUN Creatinine Est Cr Clr Drug Dosing Est GFR ( Amer) Est GFR (Non-Af Amer) BUN/Creatinine Ratio Glucose POC Glucose 130 H 154 H Lactate Calcium Total Bilirubin Direct Bilirubin AST ALT Alkaline Phosphatase Total Protein Albumin Bld Cult Staph aureus PCR Blood Culture MRSA PCR
[2019-11-27] MEDS: ATORVASTATIN 40 MG TAB PO SCH (20:02)
[2019-11-27] MEDS: TAMSULOSIN HCL 0.4 MG CAP PO SCH (20:02)
[2019-11-28] MEDS: PIPERACILLIN/TAZOBACTAM 3.375 GM in DEXTROSE 5% 100 ML IV SCH ×3 (02:01→18:13)
[2019-11-28] MEDS: ACETAMINOPHEN 325 MG TAB PO PRN (02:02)
[2019-11-28] MEDS: TRAMADOL HCL 50 MG TABLET PO PRN (06:12)
[2019-11-28 07:10] LABS: Basophils # (auto) 0.02 K/uL (0-0.2); Basophils % (auto) 0.1 %; Eosinophils # (auto) 0.03 K/uL (0-0.5); Eosinophils % (auto) 0.2 %; Hematocrit (blood only) 38.8 % (42-52); Immature Granulocytes # (auto) 0.05 K/uL (0.00-0.02); Immature Granulocytes % (auto) 0.3 %; Mean Corpuscular Hemoglobin 24.9 pg (25-34); Mean Corpuscular Hgb Conc 30.9 g/dL (32-36); Mean Corpuscular Volume 80.7 fL (80-100); Mean Platelet Volume 10.8 fL (7.4-10.4); Monocytes # (auto) 1.22 K/uL (0.11-0.59); Monocytes % (auto) 6.8 %; Neutrophils # (auto) 15.78 K/uL (1.4-6.5); Neutrophils % (auto) 87.6 %; Platelet Count 183 K/uL (130-400); RDW Coefficient of Variation 18.3 % (11.5-14.5); RDW Standard Deviation 53.9 fL (36.4-46.3); Red Blood Count 4.81 M/uL (4.7-6.1)
[2019-11-28 07:19] LABS: INR 1.5 (0.9-1.1); Prothrombin Time 15.1 Seconds (9.0-12.0)
[2019-11-28 07:48] LABS: Albumin Level 2.4 gm/dl (3.4-5.0); BUN Creatinine Ratio 25.4 (10-20); Calcium 8.5 mg/dl (8.5-10.1); Creatinine Clr Calc Pharmacy 41.8 ml/min; Est GFR (African American) 43.2; Est GFR (Non-African American) 37.3; Potassium 4.6 mmol/L (3.5-5.1)
[2019-11-28] MEDS: GABAPENTIN 100 MG CAP PO SCH ×3 (07:50→21:33)
[2019-11-28] MEDS: METOPROLOL SUCC 25MG EXT REL TAB PO SCH (07:50)
[2019-11-28 07:51] LABS: Bilirubin,Total 3.2 mg/dl (0.2-1); Total Protein 6.5 gm/dl (6.4-8.2)
[2019-11-28] MEDS: INSULIN ASPART 100 UNITS/ML 3 ML PEN SC SCH ×4 (08:27→21:34)
[2019-11-28] MEDS: INSULIN GLARGINE SOLOSTAR 100 UNITS/ML 3 ML PEN SC SCH (08:28)
--- NOTE | 2019-11-28 11:50 | Hospitalist Progress Note ---
Date of Service November 28, 2019 Assessment & Plan (1) Right flank pain: 74-year-old male with history of cholelithiasis, systolic CHF, ischemic cardiomyopathy of 30 to 35%, coronary disease/CABG, Aortic stenosis status post TAVR, atrial fibrillation on Coumadin, history of CVA, diabetes type 2 presenting with right leg pain. Acute cholangitis with choledocholithiasis; cholelithiasis Possible MSSA bacteremia --Evaluated by general surgery service Right flank pain felt to be secondary to choledocholithiasis --GI consulted, ERCP be performed 11/26/2019 CBD stone removed, pus also drained from common bile duct, stents placed --Blood cultures: 1 bottle positive for MSSA Repeat blood cultures ordered: Pending --Total bilirubin 3.2, direct bilirubin 2.0 AST 65, ALT 72, alk phos 186 Discussed with GI, monitor closely --Continue Zosyn GI recommends outpatient cholecystectomy --Advance diet as tolerated History of chronic systolic congestive heart failure, ischemic cardiomyopathy 30 to 35% --Evaluated by cardiology service preoperatively --Diuretics on hold for now Patient on the dry side Acute renal injury on CKD 3 --IV NSS started, continue to monitor History of CAD, CABG --No active chest pain Aspirin on hold, continue metoprolol, Lipitor Atrial fibrillation on chronic Coumadin --INR 2.9, vitamin K given, monitor INR Coumadin on hold for now in light of procedure per #1 Diabetes type 2 --Sliding scale History of CVA --Aspirin on hold DVT prophylaxis SCDs for now Disposition Pending Anticipate discharge to home when medically stable Admission and Anticipated Discharge Date Admission Date: November 26, 2019 Subjective Follow-up for acute cholangitis, history of CAD, CHF Seen resting in bedside chair, comfortable, not in distress States he feels fine overall today Reporting less right flank pain Denies shortness of breath, chest pain, palpitation No other symptoms Review of Systems Review of Systems: All systems reviewed & are unremarkable except as noted in HPI & below Physical Exam Physical Exam: General- oriented x 3, not in distress, speaks in sentences with no effort or accessory muscle use Eyes- anicteric Neck- no JVD Lungs- clear BS bilaterally, no crackles or wheeze Heart- normal rate, regular rhythm; no murmurs Abdomen- normal bowel sounds, nondistended, soft, nontender Extremities- no pretibial edema, no calf tenderness Neuro- alert, oriented x 3; no gross focal neurologic deficits Skin- warm & dry [facility] Data [facility] Vital Signs (Past 12 Hours) Vital Signs Temp Pulse Pulse Resp BP BP Pulse Ox 11/28/19 08:00 93 H 11/28/19 07:47 36.6 C 81 17 109/63 97 11/28/19 03:18 37.2 C 86 18 106/54 L 94 Pulse Ox 11/28/19 08:00 97 11/28/19 07:47 11/28/19 03:18 Laboratory Results Laboratory Results - last 24 hr 11/28/19 11/28/19 11/28/19 06:29 06:29 06:29 WBC 18.00 H RBC 4.81 Hgb 12.0 L Hct 38.8 L MCV 80.7 MCH 24.9 L MCHC 30.9 L RDW Std Deviation 53.9 H RDW Coeff of Abi 18.3 H Plt Count 183 MPV 10.8 H Immature Gran % (Auto) 0.3 Neut % (Auto) 87.6 Lymph % (Auto) 5.0 [place] % (Auto) 6.8 Eos % (Auto) 0.2 Baso % (Auto) 0.1 Immature Gran # (Auto) 0.05 H Neut # (Auto) 15.78 H Lymph # (Auto) 0.90 L [place] # (Auto) 1.22 H Eos # (Auto) 0.03 Baso # (Auto) 0.02 PT 15.1 H INR 1.5 H Sodium 133 L Potassium 4.6 Chloride 101 Carbon Dioxide 26 Anion Gap 6.0 BUN 45 H Creatinine 1.76 H D Est Cr Clr Drug Dosing 41.8 Est GFR ( Amer) 43.2 Est GFR (Non-Af Amer) 37.3 BUN/Creatinine Ratio 25.4 H Glucose 129 H POC Glucose Calcium 8.5 Total Bilirubin 3.2 H Direct Bilirubin 2.0 H AST 65 H ALT 72 Alkaline Phosphatase 186 H Total Protein 6.5 Albumin 2.4 L 11/28/19 11/28/19 11/28/19 07:33 11:49 16:31 WBC RBC Hgb Hct MCV MCH MCHC RDW Std Deviation RDW Coeff of Abi Plt Count MPV Immature Gran % (Auto) Neut % (Auto) Lymph % (Auto) [place] % (Auto) Eos % (Auto) Baso % (Auto) Immature Gran # (Auto) Neut # (Auto) Lymph # (Auto) [place] # (Auto) Eos # (Auto) Baso # (Auto) PT INR Sodium Potassium Chloride Carbon Dioxide Anion Gap BUN Creatinine Est Cr Clr Drug Dosing Est GFR ( Amer) Est GFR (Non-Af Amer) BUN/Creatinine Ratio Glucose POC Glucose 139 H 210 H 179 H Calcium Total Bilirubin Direct Bilirubin AST ALT Alkaline Phosphatase Total Protein Albumin 11/28/19 20:28 WBC RBC Hgb Hct MCV MCH MCHC RDW Std Deviation RDW Coeff of Abi Plt Count MPV Immature Gran % (Auto) Neut % (Auto) Lymph % (Auto) [place] % (Auto) Eos % (Auto) Baso % (Auto) Immature Gran # (Auto) Neut # (Auto) Lymph # (Auto) [place] # (Auto) Eos # (Auto) Baso # (Auto) PT INR Sodium Potassium Chloride Carbon Dioxide Anion Gap BUN Creatinine Est Cr Clr Drug Dosing Est GFR ( Amer) Est GFR (Non-Af Amer) BUN/Creatinine Ratio Glucose POC Glucose 196 H Calcium Total Bilirubin Direct Bilirubin AST ALT Alkaline Phosphatase Total Protein Albumin
[2019-11-28] MEDS: SODIUM CHLORIDE 0.9% 1000ML 1,000 ML IV SCH (12:18)
[2019-11-28] MEDS: TAMSULOSIN HCL 0.4 MG CAP PO SCH (21:32)
[2019-11-28] MEDS: ATORVASTATIN 40 MG TAB PO SCH (21:33)
[2019-11-29] MEDS: SODIUM CHLORIDE 0.9% 1000ML 1,000 ML IV SCH ×2 (00:17→16:02)
[2019-11-29] MEDS: PIPERACILLIN/TAZOBACTAM 3.375 GM in DEXTROSE 5% 100 ML IV SCH ×3 (02:01→18:19)
[2019-11-29 06:56] LABS: Basophils # (auto) 0.01 K/uL (0-0.2); Basophils % (auto) 0.1 %; Eosinophils # (auto) 0.03 K/uL (0-0.5); Eosinophils % (auto) 0.2 %; Hematocrit (blood only) 37.1 % (42-52); Hemoglobin 11.9 g/dL (14.0-18.0); Immature Granulocytes # (auto) 0.04 K/uL (0.00-0.02); Immature Granulocytes % (auto) 0.3 %; Lymphocytes # (auto) 0.66 K/uL (1.2-3.4); Lymphocytes % (auto) 4.5 %; Mean Corpuscular Hemoglobin 25.5 pg (25-34); Mean Corpuscular Hgb Conc 32.1 g/dL (32-36); Mean Corpuscular Volume 79.6 fL (80-100); Mean Platelet Volume 10.8 fL (7.4-10.4); Monocytes # (auto) 0.86 K/uL (0.11-0.59); Monocytes % (auto) 5.9 %; Neutrophils # (auto) 12.96 K/uL (1.4-6.5); Platelet Count 173 K/uL (130-400); RDW Coefficient of Variation 18.3 % (11.5-14.5); RDW Standard Deviation 52.9 fL (36.4-46.3); Red Blood Count 4.66 M/uL (4.7-6.1); White Blood Count 14.56 K/uL (4.8-10.8)
[2019-11-29 07:07] LABS: INR 1.6 (0.9-1.1); Prothrombin Time 15.6 Seconds (9.0-12.0)
[2019-11-29] MEDS: GABAPENTIN 100 MG CAP PO SCH ×3 (07:24→20:56)
[2019-11-29] MEDS: METOPROLOL SUCC 25MG EXT REL TAB PO SCH (07:25)
[2019-11-29] MEDS: INSULIN GLARGINE SOLOSTAR 100 UNITS/ML 3 ML PEN SC SCH (07:25)
[2019-11-29 07:27] LABS: Albumin Level 2.2 gm/dl (3.4-5.0); BUN Creatinine Ratio 26.5 (10-20); Bilirubin Direct 2.2 mg/dl (0-0.2); Calcium 8.3 mg/dl (8.5-10.1); Creatinine Clr Calc Pharmacy 35.7 ml/min; Est GFR (African American) 35.1; Est GFR (Non-African American) 30.3; Potassium 4.4 mmol/L (3.5-5.1)
[2019-11-29 07:30] LABS: Bilirubin,Total 3.2 mg/dl (0.2-1); Total Protein 6.4 gm/dl (6.4-8.2)
--- NOTE | 2019-11-29 07:42 | Infectious Disease Consult ---
Date of Consultation November 29, 2019 Assessment & Plan (1) Cholecystitis: (2) Gram positive sepsis: can continue zosyn for now, no gnr identified, If repeat cultures negative, would change to Rocephin 2g IV daily for 14 days from first negative culture, echo negative History of Present Illness Attending Physician: Taj Durham MD pt admitted with abd pain, had biliary stent removed 2 weeks [employer]. no f/c. now st ates feeling much better. not eating much but no abd pain, no n/v/d. wbc elevated, afebrile. had gb ultrasound, distention and gas noted, had ERCP, purulent fluid noted at cbd, no cultures. blood cultures growing MSSA, on zosyn, repeat cultures pending. Allergies Allergy/AdvReac Type Severity Reaction Status Date / Time lisinopril AdvReac Mild COUGH Verified 11/12/19 05:49 Home Medications Home Medications Medication Instructions Recorded Confirmed Type acetaminophen [Tylenol Extra 500 mg PO Q4 PRN 04/05/19 11/25/19 History Strength] aspirin [Aspir-81] 81 mg PO QAM 04/05/19 11/25/19 History atorvastatin 40 mg PO HS 04/05/19 11/25/19 History docusate sodium 100 mg PO BID PRN 04/05/19 11/25/19 History magnesium oxide 400 mg PO QPM 04/05/19 11/25/19 History nitroglycerin [Nitrostat] 0.4 mg SUBLINGUAL DIRECTED PRN 04/05/19 11/25/19 History polyethylene glycol 3350 [Miralax] 17 g PO DAILY PRN 04/05/19 11/25/19 History sennosides 8.6 mg PO DAILY PRN 04/05/19 11/25/19 History tamsulosin [Flomax] 0.4 mg PO HS 04/05/19 11/25/19 History torsemide 20 mg PO UD 04/05/19 11/25/19 History warfarin 5 mg PO QPM 04/05/19 11/25/19 History zolpidem 5 mg PO HS PRN 04/05/19 11/25/19 History gabapentin 100 mg PO TID 05/29/19 11/25/19 History metoprolol succinate 25 mg PO QAM 05/29/19 11/25/19 History spironolactone 25 mg PO BID 05/29/19 11/25/19 History Lantus Solostar U-100 Insulin 75 - 100 unit SC HS 06/14/19 11/25/19 History buspirone 10 mg PO TID 11/25/19 11/25/19 History Patient History Medical History Anxiety Aortic stenosis s/p TAVR with MV replacement 12/2016. Atrial fibrillation ON WARFARIN - FOLLOWS W/ DR. KOWALSKI Cardiac murmur Severe mitral annular calcification per 03/2019 echo. Limited echo, valves not well visualized. H/O MV repair and AVR. CHF (congestive heart failure) Cholecystitis, chronic Coronary artery disease s/p CABG 2002 Degenerative disc disease Diabetes mellitus, type II IDDM Diabetic neuropathy Diverticular disease Dyslipidemia GERD (gastroesophageal reflux disease) History of recent pneumonia H[facility]PITALIZED 03/2019 [facility] History of renal calculi Hypertension Ischemic cardiomyopathy EF 25-30%, pt refused ICD. On anticoagulant therapy SOB (shortness of breath) on exertion Spinal stenosis Stroke 2 YEARS AGO - WEAKNESS LEFT SIDE Transient ischemic attack (TIA) 2016 Surgical History Difficult airway Glidescope #4 atraumatic attempt x 1, 04/05/19 History of aortic valve replacement History of TAVR complicated by prosthetic fracture and then underwent open surgical aortic valve replacement, mitral valve repair in 2016 History of cardiac cath 2 YEARS AGO - [facility] - NO STENTS/ANGIOPLASTY --> VALVE REPLACEMENT History of cardiac radiofrequency ablation For A flutter, 2005. History of cardioversion History of cataract surgery History of chest tube placement During admission 04/05 - 04/28 for empyema History of ERCP 04/09/19. Glidescope #4. History of mitral valve repair 01/22/2017 History of thoracentesis 04/10/19 Status post coronary artery bypass grafting 15 YEARS AGO - 3 VESSELS Family History Unknown Family history non-contributory Social History Preferred Language: Upper Sorbian Communication Ability: Effective Policy Service Coordinator Required: No Beliefs That Will Affect Care: None marital status: Current Living Situation: Spouse Other Information That Helps Us Care for You: No Feels Safe at Home: Yes Safety Concerns: Feels Safe At This Time Smoking Status: Never smoker Tobacco Type: smokeless tobacco ; Second Hand Exposure: Yes (ON [employer] FRIENDS) ; Hx Alcohol Use: No Hx Substance Use: No Review of Systems Review of Systems: All systems reviewed & are unremarkable except as noted in HPI & below Physical Exam Constitutional: WD/WN, vitals as above Eyes: PERRL, conjunctivae normal, anicteric sclerae ENMT: external ear and nose normal, oropharynx normal Neck: normal visual inspection Respiratory: normal respiratory effort, lungs clear to auscultation Cardiovascular: RRR, no murmur, no edema Gastrointestinal (Abdomen): normal bowel sounds, soft, nontender, no hepatosplenomegaly Musculoskeletal: no cyanosis or clubbing, extremities motor strength 5/5 Skin: no rashes, warm and dry Psychiatric: A+Ox3, euthymic affect Results & Data ([facility]) Vital Signs (Past 12 Hours) Vital Signs Temp Pulse Pulse Resp BP BP Pulse Ox 11/29/19 03:01 36.7 C 93 H 18 105/69 98 11/28/19 23:12 37 C 92 H 20 81/58 L 96 11/28/19 20:00 36.9 C 98 H 20 98/63 L 96 Laboratory Results Microbiology 11/26/19 02:15 Blood Aerobic Blood Culture - Preliminary Staphylococcus aureus 11/26/19 02:15 Blood Anaerobic Blood Culture - Preliminary No growth in Anaerobic bottle after 48 hours. 11/26/19 02:18 Blood Aerobic Blood Culture - Preliminary No growth in Aerobic bottle after 48 hours. 11/26/19 02:18 Blood Anaerobic Blood Culture - Preliminary No growth in Anaerobic bottle after 48 hours. PG Care Time/CCT Total # of Minutes Spent Total Time Spent with Patient: Total time spent is greater than 50% in coordination of care (as documented) at patient's floor/unit and/or counseling patient: Coding Level of Care Code 42769 Inpt Consult Level 4 Diagnoses Cholecystitis K81.9 Gram positive sepsis A41.89
[2019-11-29] MEDS ORDERED: SODIUM CHLORIDE 0.9% 500 ML IV SCH (08:30)
[2019-11-29] MEDS: INSULIN ASPART 100 UNITS/ML 3 ML PEN SC SCH ×4 (08:43→20:56)
--- NOTE | 2019-11-29 09:20 | Hospitalist Progress Note ---
Date of Service November 29, 2019 Assessment & Plan (1) Right flank pain: 74-year-old male with history of cholelithiasis, systolic CHF, ischemic cardiomyopathy of 30 to 35%, coronary disease/CABG, Aortic stenosis status post TAVR, atrial fibrillation on Coumadin, history of CVA, diabetes type 2 presenting with right leg pain. Acute cholangitis with choledocholithiasis; cholelithiasis MSSA bacteremia --Evaluated by general surgery service Right flank pain felt to be secondary to choledocholithiasis --GI consulted, ERCP be performed 11/26/2019 CBD stone removed, pus also drained from common bile duct, stents placed --Blood cultures: 1 bottle positive for MSSA Repeat blood cultures ordered: Pending --Total bilirubin 3.2, direct bilirubin 2.2 AST 56, ALT 64, alk phos 221 Discussed with GI, monitor closely --Continue Zosyn GI recommends outpatient cholecystectomy -- ID consulted, recommend Ceftriaxone IV x 14 days from 1st day of negative blood cultures Acute renal injury on CKD 3, likely ATN from bacteremia -- crea further increased to 2.09 -- IV fluids increased Nephro consulted History of chronic systolic congestive heart failure, ischemic cardiomyopathy 30 to 35% --Evaluated by cardiology service preoperatively --Diuretics on hold for now Patient on the dry side -- monitor while on IV fluids History of CAD, CABG --No active chest pain Aspirin on hold, continue metoprolol, Lipitor Atrial fibrillation on chronic Coumadin --INR 2.9, vitamin K given, monitor INR Coumadin on hold for now in light of procedure per #1 Diabetes type 2 --Sliding scale History of CVA --Aspirin on hold DVT prophylaxis SCDs for now Disposition Pending Anticipate discharge to home when medically stable Admission and Anticipated Discharge Date Admission Date: November 26, 2019 Subjective ff up for cholangitis, history of CHF, CAD, A fib seen resting in bed, not in distress states he feels fine ,just tired RUQ pain continues to feel better no nausea, tolerating diet well no problems with urination Review of Systems Review of Systems: All systems reviewed & are unremarkable except as noted in HPI & below Physical Exam Physical Exam: General- oriented x 3, not in distress, speaks in sentences with no effort or accessory muscle use Eyes- anicteric Neck- no JVD Lungs- clear BS BL Heart- normal rate, irregularly irregular rhythm; no murmurs Abdomen- normal bowel sounds, nondistended, soft, nontender Extremities- no pretibial edema, no calf tenderness Neuro- alert, oriented x 3; no gross focal neurologic deficits Skin- warm & dry Results & Data ([facility]) Vital Signs (Past 12 Hours) Vital Signs Temp Pulse Resp BP BP Pulse Ox 11/29/19 08:07 36.7 C 87 18 84/52 L 99 11/29/19 03:01 36.7 C 93 H 18 105/69 98 11/28/19 23:12 37 C 92 H 20 81/58 L 96 Laboratory Results Laboratory Results - last 24 hr 11/28/19 11/29/19 11/29/19 20:28 06:34 06:34 WBC 14.56 H RBC 4.66 L Hgb 11.9 L Hct 37.1 L MCV 79.6 L MCH 25.5 MCHC 32.1 RDW Std Deviation 52.9 H RDW Coeff of Abi 18.3 H Plt Count 173 MPV 10.8 H Immature Gran % (Auto) 0.3 Neut % (Auto) 89.0 Lymph % (Auto) 4.5 [place] % (Auto) 5.9 Eos % (Auto) 0.2 Baso % (Auto) 0.1 Immature Gran # (Auto) 0.04 H Neut # (Auto) 12.96 H Lymph # (Auto) 0.66 L [place] # (Auto) 0.86 H Eos # (Auto) 0.03 Baso # (Auto) 0.01 PT INR Sodium 129 L Potassium 4.4 Chloride 97 L Carbon Dioxide 26 Anion Gap 6.0 BUN 55 H Creatinine 2.09 H D Est Cr Clr Drug Dosing 35.7 Est GFR ( Amer) 35.1 Est GFR (Non-Af Amer) 30.3 BUN/Creatinine Ratio 26.5 H Glucose 148 H POC Glucose 196 H Calcium 8.3 L Total Bilirubin 3.2 H Direct Bilirubin 2.2 H AST 56 H ALT 64 Alkaline Phosphatase 221 H Total Protein 6.4 Albumin 2.2 L 11/29/19 11/29/19 11/29/19 06:34 07:34 11:50 WBC RBC Hgb Hct MCV MCH MCHC RDW Std Deviation RDW Coeff of Abi Plt Count MPV Immature Gran % (Auto) Neut % (Auto) Lymph % (Auto) [place] % (Auto) Eos % (Auto) Baso % (Auto) Immature Gran # (Auto) Neut # (Auto) Lymph # (Auto) [place] # (Auto) Eos # (Auto) Baso # (Auto) PT 15.6 H INR 1.6 H Sodium Potassium Chloride Carbon Dioxide Anion Gap BUN Creatinine Est Cr Clr Drug Dosing Est GFR ( Amer) Est GFR (Non-Af Amer) BUN/Creatinine Ratio Glucose POC Glucose 158 H 228 H Calcium Total Bilirubin Direct Bilirubin AST ALT Alkaline Phosphatase Total Protein Albumin 11/29/19 15:58 WBC RBC Hgb Hct MCV MCH MCHC RDW Std Deviation RDW Coeff of Abi Plt Count MPV Immature Gran % (Auto) Neut % (Auto) Lymph % (Auto) [place] % (Auto) Eos % (Auto) Baso % (Auto) Immature Gran # (Auto) Neut # (Auto) Lymph # (Auto) [place] # (Auto) Eos # (Auto) Baso # (Auto) PT INR Sodium Potassium Chloride Carbon Dioxide Anion Gap BUN Creatinine Est Cr Clr Drug Dosing Est GFR ( Amer) Est GFR (Non-Af Amer) BUN/Creatinine Ratio Glucose POC Glucose 291 H Calcium Total Bilirubin Direct Bilirubin AST ALT Alkaline Phosphatase Total Protein Albumin
--- NOTE | 2019-11-29 11:25 | Consultation Report ---
DATE OF CONSULTATION: 11/29/2019 REASON FOR CONSULT: Acute renal failure. HISTORY OF PRESENT ILLNESS: The patient is a 74-year-old male who has been in the hospital for the last 4 days. He presented with the chief complaint of nausea, vomiting and belly pain. He was diagnosed with having possible cholelithiasis as well as choledocholithiasis. He gets frequent ERCP with biliary stents. He presented with fever, chills and was found to have bacteremia. Blood culture from time of admission did show staph aureus. Renal function was fairly normal at the time of admission, but since then has got worse. Creatinine is 2.09 now and was 1.27 at the time of admission. Patient's blood pressure has been low for the last 2 days now coinciding with the worsening renal function. He is making urine, but not a lot. His urine output yesterday was 550 mL. He has been started on IV fluid because of low blood pressure and worsening renal function. The patient denies any nausea, vomiting, shortness of breath at this time. PAST MEDICAL AND SURGICAL HISTORY: Extensive cardiac problems including CABG, congestive heart failure, severe valvular heart disease, chronic Coumadin, longstanding type 2 diabetes, recent pneumonia, history of kidney stone, ischemic cardiomyopathy with an EF of 25% to 30%, history of TIA. REVIEW OF SYSTEMS: As detailed in HPI and listed; otherwise, 12 systems reviewed and negative. SOCIAL HISTORY: No smoking or alcohol at this time. FAMILY HISTORY: Negative for renal disease. PHYSICAL EXAMINATION: VITAL SIGNS: Blood pressure last checked was 84/52, pulse rate 87, temperature 36.7, 99% on 2 liter nasal cannula. GENERAL: Awake, alert, oriented x3. HEENT: Mucous membrane moist. NECK: Supple. No jugular venous distention. CHEST: Bilateral clear to auscultation. CARDIOVASCULAR: S1, S2, regular. ABDOMEN: Soft, nontender. EXTREMITIES: Shows no edema. LABORATORY TESTS: From this morning shows serum sodium 129, potassium 4.4, creatinine is 2.09, BUN 55, calcium 8.3. LFT was reviewed. BNP was 5000 when checked 3 days ago. Blood culture positive for Staph aureus. ASSESSMENT AND PLAN: A 74-year-old male with extensive cardiac problem including a low ejection fraction of 25% to 30%, presented with bacteremia related with his chronic hepatobiliary issues. He now has acute renal failure in the setting of Gram-positive bacteremia. Acute renal failure. This is related more with ATN like picture in the setting of bacteremia. His blood pressure is low. So I agree with giving IV fluid, but we do have to be careful about the aggressive fluid resuscitation given his EF is only 25% to 30%. There might be some worsening of the renal function before we start to see recovery. I would do another urine dipstick. Continue to monitor input and output carefully, daily labs. Avoid nephrotoxic agent. Hold Lasix for the time being. Make sure antibiotics dosing properly. Thank you very much for the consult. PAMELLA
[2019-11-29] MEDS: ACETAMINOPHEN 325 MG TAB PO PRN (15:05)
[2019-11-29 18:18] LABS: Appearance Urine Clear (Clear); Blood Urine Negative (Negative); Color Urine Dark Yellow; Glucose Urine UA Negative (Negative); Ketones Urine Trace (Negative); Leukocyte Esterase Urine Trace (Negative); Nitrite Urine Positive (Negative); Protein Urine Trace (Negative); RBC Urine Automated 0-4 /hpf (0-4); Specific Gravity Urine 1.027 (1.000-1.030); Urobilinogen Urine Negative (Negative)
[2019-11-29 18:22] LABS: Bilirubin Urine 1+ (Negative); Ictotest Urine Positive (Negative)
[2019-11-29 18:36] LABS: Bacteria Urine Automated 1+ (Negative)
[2019-11-29] MEDS: TAMSULOSIN HCL 0.4 MG CAP PO SCH (20:55)
[2019-11-29] MEDS: HEPARIN SOD 5,000 UNIT/0.5 ML VIAL SQ SCH (20:56)
--- NOTE | 2019-11-29 21:29 | XRay Report ---
XR chest 1V portable HISTORY: crackles COMPARISON: Chest 11/26/2019. FINDINGS: The heart remains mildly enlarged. There are poststernotomy changes. Small bilateral pleura l effusions and mild interstitial pulmonary edema has progressed. Left basilar densities remain uncha nged. No pneumothorax. IMPRESSION: Interval progression of the mild interstitial pulmonary edema and small bilateral pleural effusions. Left basilar densities persist and could represent atelectasis or pneumonia. ACT 112: Negative or not required by law. Electronically signed by: Jadiel Washington M.D. 11/29/2019 9:28 PM
[2019-11-29] MEDS ORDERED: ALBUMIN 25% 50 ML IV ONE (22:38)
[2019-11-29] MEDS ORDERED: XOPENEX/ATROVENT 1.25mg/0.5MG NEB COMBO NEB STA (22:38)
--- NOTE | 2019-11-29 22:39 | Communication Note ---
Date of Service: November 29, 2019 Made aware by RN of crackles on lung exam. Patient without complaints as per RN. CXR : Interval progression of the mild interstitial pulmonary edema and small bilateral pleural effusions. Left basilar densities persist and could represent atelectasis or pneumonia. AP Fluid overload, hx systolic dysfunction Hold IVF for now Will relay to AM provider.
[2019-11-29] MEDS ORDERED: IPRATROPIUM BROMIDE NEB SOLN 0.02% 2.5 ML VIAL INH STA (22:40)
[2019-11-29] MEDS ORDERED: LEVALBUTEROL 1.25MG/0.5ML NEB INH STA (22:40)
[2019-11-29] MEDS ORDERED: LORazepam 0.5 MG TAB PO STA (22:58)
[2019-11-30] MEDS: PIPERACILLIN/TAZOBACTAM 3.375 GM in DEXTROSE 5% 100 ML IV SCH ×3 (01:49→18:59)
[2019-11-30] MEDS: HEPARIN SOD 5,000 UNIT/0.5 ML VIAL SQ SCH ×2 (06:23→14:04)
[2019-11-30 07:10] LABS: Basophils # (auto) 0.02 K/uL (0-0.2); Basophils % (auto) 0.2 %; Eosinophils # (auto) 0.12 K/uL (0-0.5); Eosinophils % (auto) 0.9 %; Hematocrit (blood only) 35.6 % (42-52); Hemoglobin 11.4 g/dL (14.0-18.0); Immature Granulocytes # (auto) 0.03 K/uL (0.00-0.02); Immature Granulocytes % (auto) 0.2 %; Lymphocytes # (auto) 0.65 K/uL (1.2-3.4); Mean Corpuscular Hemoglobin 25.1 pg (25-34); Mean Corpuscular Volume 78.2 fL (80-100); Mean Platelet Volume 10.6 fL (7.4-10.4); Monocytes # (auto) 0.76 K/uL (0.11-0.59); Monocytes % (auto) 5.9 %; Neutrophils # (auto) 11.33 K/uL (1.4-6.5); Neutrophils % (auto) 87.8 %; Platelet Count 184 K/uL (130-400); RDW Coefficient of Variation 18.3 % (11.5-14.5); RDW Standard Deviation 52.4 fL (36.4-46.3); Red Blood Count 4.55 M/uL (4.7-6.1); White Blood Count 12.91 K/uL (4.8-10.8)
[2019-11-30 07:24] LABS: INR 1.6 (0.9-1.1); Prothrombin Time 15.6 Seconds (9.0-12.0)
[2019-11-30] MEDS: GABAPENTIN 100 MG CAP PO SCH ×2 (07:38→14:39)
[2019-11-30 07:48] LABS: Albumin Level 2.2 gm/dl (3.4-5.0); BUN Creatinine Ratio 28.7 (10-20); Bilirubin Direct 1.6 mg/dl (0-0.2); Calcium 8.6 mg/dl (8.5-10.1); Creatinine Clr Calc Pharmacy 32.4 ml/min; Est GFR (African American) 30.8; Est GFR (Non-African American) 26.5; Potassium 4.1 mmol/L (3.5-5.1)
[2019-11-30 08:03] LABS: Bilirubin,Total 2.3 mg/dl (0.2-1); Total Protein 6.7 gm/dl (6.4-8.2)
[2019-11-30] MEDS: INSULIN ASPART 100 UNITS/ML 3 ML PEN SC SCH ×3 (08:30→17:30)
[2019-11-30] MEDS: INSULIN GLARGINE SOLOSTAR 100 UNITS/ML 3 ML PEN SC SCH (08:31)
[2019-11-30] MEDS ORDERED: METOPROLOL SUCC 25MG EXT REL TAB PO SCH (09:00)
[2019-11-30] MEDS ORDERED: METOPROLOL SUCC 50MG EXT REL TAB PO STA (12:46)
--- NOTE | 2019-11-30 12:58 | Gastroenterology Progress Note ---
Date of Service November 30, 2019 Assessment & Plan (1) Cholecystitis: (2) Cholelithiasis: (3) Choledocholithiasis: Pt is a 74 y/o male who is 4 days post ERCP with slowly improving LFTs. Due to is a poor surgical candidate discussed placement of endoscopically placed permanent stent to drain the gallbladder instead of cholecystectomy. Discussed with pt who would prefer procedure/s to be completed in [place]. Recommend transfer to [place] for evaluation there for consideration of either surgery or GI endoscopic placement of a permanent Axios stent for draining the gallbladder. Admission and Anticipated Discharge Date Admission Date: November 26, 2019 Supervising Physician Co-Signing Physician Notes I performed a history and physical examination of the patient today, including specifically on physical exam - soft abdomen. I have discussed the patient's management with the advanced practitioner. Please refer to the nurse pra ctitioner's note for the documented findings and plan of care. LFTs improving and Bilirubin trending down. WBC trending down. Feels weak and tired, has intermittent abdominal discomfort. He is deemed a non surgical candidate and given the current suspected cholecystitis, I [place] [facility] [place] guided gallbladder [place]. Subjective Mr. Bustillo is a 74 yr old male who is post procedure day #4 from ERCP for choledocholithiasis/cholangitis. GI reconsulted today because elevated LFTs not resolved. LFTs improving: T Bili 3->2.3, D Bili 2.3->1.6, AST 78->49, ALT 72->59. Afebrile. Today, diffuse abdominal discomfort for enlarging abdominal girth ?fluid accumulation. He has been passing loose BMs, 4 yesterday. Tolerating a regular consistency diabetic diet. Review of Systems Review of Systems: ROS: Gen: Denies weakness, fevers, weight loss Eyes: No eye redness, or pain, no recent vision changes Resp: No SOB, no cough Cardio: No palpitations/irregular beats, no chest pain GI: No abdominal pain, no nausea/vomiting : Denies pain on urination Skin: No jaundice, itching or new rashes Physical Exam Constitutional: well developed, + ill appearing, + thin and cooperative Eyes: PERRL, conjunctivae normal, anicteric sclerae Respiratory: normal respiratory effort, lungs clear to auscultation normal respiratory effort and able to speak in complete sentences; no respiratory distress, no labored breathing, does not use accessory muscles and no cough Cardiovascular: RRR, no murmur, no edema Gastrointestinal (Abdomen): normal bowel sounds, soft, nontender, no hepatosplenomegaly Inspection/Auscultation: abdomen normal to inspection and normal bowel sounds; abdomen not distended and no abdominal edema Percussion/Palpation: + abdomen tender (minimal/diffuse) and abdomen soft; no guarding and abdomen not rigid Skin: no rashes, warm and dry normal turgor and + pallor Neurologic: PERRL, EOMI, accommodation nl, no face palsy, no dysarthria awake; not confused Psychiatric: A+Ox3, euthymic affect Orientation: alert, oriented x 3 and cooperative Results & Data ([facility]) Vital Signs (Past 12 Hours) Vital Signs Temp Pulse Resp BP BP Pulse Ox 11/30/19 12:27 36.5 C 96 H 18 99/57 L 152/100 H 97 11/30/19 07:58 36.5 C 70 21 88/57 L 100/66 98 11/30/19 03:50 36.5 C 103 H 20 97/61 L 98
[2019-11-30] MEDS ORDERED: METOPROLOL SUCC 25MG EXT REL TAB PO STA (13:02)
[2019-11-30] MEDS ORDERED: FUROSEMIDE 40 MG in SYRINGE 0 ML IV STA (13:08)
[2019-11-30] MEDS: ACETAMINOPHEN 325 MG TAB PO PRN (14:42)
--- NOTE | 2019-11-30 15:48 | Hospitalist Progress Note ---
Date of Service November 30, 2019 Assessment & Plan (1) Right flank pain: 74-year-old male with history of cholelithiasis, systolic CHF, ischemic cardiomyopathy of 30 to 35%, coronary disease/CABG, Aortic stenosis status post TAVR, atrial fibrillation on Coumadin, history of CVA, diabetes type 2 presenting with right leg pain. Acute cholangitis with choledocholithiasis; cholelithiasis MSSA bacteremia --Evaluated by general surgery service Right flank pain felt to be secondary to choledocholithiasis, referred to GI --GI consulted, ERCP be performed 11/26/2019 CBD stone removed, pus also drained from common bile duct, stents placed --Blood cultures: 1 bottle positive for MSSA Repeat blood cultures ordered: Pending, please follow Transthoracic echo: No vegetation noted EF 30 to 35%, normal gradient for prosthetic aortic valve, no change from pre vious study --LFTs remain elevated Total bilirubin 3.2--> 2.3, direct bilirubin 2.2--> 1.6 AST 49, ALT 59, alk phos 242 Discussed with GI, monitor closely --Continue Zosyn GI recommends transfer to [facility] in [place] for further evaluation and management including possible axio stent placement And neurosurgery evaluation for cholecystectomy -- ID consulted, recommend Ceftriaxone IV x 14 days from 1st day of negative blood cultures Acute renal injury on CKD 3, likely ATN from bacteremia -- crea noted to be gradually increasing since admission, further increased from 1.3 now up to 2.3 -- IV NSS given Now positive volume overload, decreasing urine output Nephro consulted, meant to DC IV NSS and start Lasix 40 mg IV 1 dose --Monitor closely, may need further Lasix doses History of chronic systolic congestive heart failure, ischemic cardiomyopathy 30 to 35% -- Evaluated by cardiology service preoperatively -- Diuretics held for procedures --Currently positive volume overload, with acute renal injury --Echo results noted in #1 History of CAD, CABG --No chest pain Aspirin on hold, continue metoprolol, Lipitor Atrial fibrillation on chronic Coumadin --INR 2.9, vitamin K given, now 1.6 Coumadin on hold for now in light of procedure per #1 Diabetes type 2 --Sliding scale History of CVA --Aspirin on hold DVT prophylaxis Heparin subcutaneous 3 times daily Disposition Transfer to [facility] for further evaluation management Discussed case with Dr. Jilg-hospitalist and GI program consultant in detail Plan of care also discussed with patient and his at the bedside in detail and at length All questions were answered They are understanding, agreeable, comfortable with the plan of care Admission and Anticipated Discharge Date Admission Date: November 26, 2019 Subjective Follow-up for cholangitis, acute kidney failure, cardiomyopathy, etc. Seen resting in bed with patient's at the bedside States he has some shortness of breath today Denies cough, fever chills, sputum production has minimal discomfort in the right upper quadrant but feels stomach is getting distended Noting less urine output, and leg swelling Denies other symptoms Review of Systems Review of Systems: All systems reviewed & are unremarkable except as noted in HPI & below Physical Exam Physical Exam: General- oriented x 3, not in distress, speaks in sentences with no effort or accessory muscle use Eyes- anicteric Neck- no JVD Lungs-crackles at the bilateral bases, no wheezing Heart- normal rate, irregularly irregular rhythm; no murmurs Abdomen- normal bowel sounds, mildly distended, soft, nontender Extremities-mild bilateral lower leg edema, no calf tenderness Neuro- alert, oriented x 3; no gross focal neurologic deficits Skin- warm & dry Results & Data ([facility]) Vital Signs (Past 12 Hours) Vital Signs Temp Pulse Resp BP BP Pulse Ox 11/30/19 12:27 36.5 C 96 H 18 99/57 L 152/100 H 97 11/30/19 07:58 36.5 C 70 21 88/57 L 100/66 98 11/30/19 03:50 36.5 C 103 H 20 97/61 L 98 Laboratory Results Laboratory Results - last 24 hr 11/29/19 11/29/19 11/29/19 15:58 20:17 Unknown WBC RBC Hgb Hct MCV MCH MCHC RDW Std Deviation RDW Coeff of Abi Plt Count MPV Immature Gran % (Auto) Neut % (Auto) Lymph % (Auto) [place] % (Auto) Eos % (Auto) Baso % (Auto) Immature Gran # (Auto) Neut # (Auto) Lymph # (Auto) [place] # (Auto) Eos # (Auto) Baso # (Auto) PT INR Sodium Potassium Chloride Carbon Dioxide Anion Gap BUN Creatinine Est Cr Clr Drug Dosing Est GFR ( Amer) Est GFR (Non-Af Amer) BUN/Creatinine Ratio Glucose POC Glucose 291 H 217 H Calcium Total Bilirubin Direct Bilirubin AST ALT Alkaline Phosphatase Total Protein Albumin Urine Color Dark Yellow Urine Appearance Clear Urine pH 5.0 Ur Specific [place] 1.027 Urine Protein Trace H Urine Glucose (UA) Negative Urine Ketones Trace H Urine Blood Negative Urine Nitrite Positive A Urine Bilirubin 1+ H Urine Urobilinogen Negative Ur Leukocyte Esterase Trace H Urine WBC (Auto) 1-5 Urine RBC (Auto) 0-4 U Hyaline Cast (Auto) 1-5 U Epithel Cells (Auto) 10-20 H Urine Bacteria (Auto) 1+ H Urine Yeast Not Reportable 11/30/19 11/30/19 11/30/19 06:47 06:47 06:47 WBC 12.91 H RBC 4.55 L Hgb 11.4 L Hct 35.6 L MCV 78.2 L MCH 25.1 MCHC 32.0 RDW Std Deviation 52.4 H RDW Coeff of Abi 18.3 H Plt Count 184 MPV 10.6 H Immature Gran % (Auto) 0.2 Neut % (Auto) 87.8 Lymph % (Auto) 5.0 [place] % (Auto) 5.9 Eos % (Auto) 0.9 Baso % (Auto) 0.2 Immature Gran # (Auto) 0.03 H Neut # (Auto) 11.33 H Lymph # (Auto) 0.65 L [place] # (Auto) 0.76 H Eos # (Auto) 0.12 Baso # (Auto) 0.02 PT 15.6 H INR 1.6 H Sodium 128 L Potassium 4.1 Chloride 96 L Carbon Dioxide 22 Anion Gap 10.0 BUN 67 H Creatinine 2.33 H Est Cr Clr Drug Dosing 32.4 Est GFR ( Amer) 30.8 Est GFR (Non-Af Amer) 26.5 BUN/Creatinine Ratio 28.7 H Glucose 143 H POC Glucose Calcium 8.6 Total Bilirubin 2.3 H Direct Bilirubin 1.6 H AST 49 H ALT 59 Alkaline Phosphatase 242 H Total Protein 6.7 Albumin 2.2 L Urine Color Urine Appearance Urine pH Ur Specific [place] Urine Protein Urine Glucose (UA) Urine Ketones Urine Blood Urine Nitrite Urine Bilirubin Urine Urobilinogen Ur Leukocyte Esterase Urine WBC (Auto) Urine RBC (Auto) U Hyaline Cast (Auto) U Epithel Cells (Auto) Urine Bacteria (Auto) Urine Yeast 11/30/19 11/30/19 07:48 11:43 WBC RBC Hgb Hct MCV MCH MCHC RDW Std Deviation RDW Coeff of Abi Plt Count MPV Immature Gran % (Auto) Neut % (Auto) Lymph % (Auto) [place] % (Auto) Eos % (Auto) Baso % (Auto) Immature Gran # (Auto) Neut # (Auto) Lymph # (Auto) [place] # (Auto) Eos # (Auto) Baso # (Auto) PT INR Sodium Potassium Chloride Carbon Dioxide Anion Gap BUN Creatinine Est Cr Clr Drug Dosing Est GFR ( Amer) Est GFR (Non-Af Amer) BUN/Creatinine Ratio Glucose POC Glucose 148 H 201 H Calcium Total Bilirubin Direct Bilirubin AST ALT Alkaline Phosphatase Total Protein Albumin Urine Color Urine Appearance Urine pH Ur Specific [place] Urine Protein Urine Glucose (UA) Urine Ketones Urine Blood Urine Nitrite Urine Bilirubin Urine Urobilinogen Ur Leukocyte Esterase Urine WBC (Auto) Urine RBC (Auto) U Hyaline Cast (Auto) U Epithel Cells (Auto) Urine Bacteria (Auto) Urine Yeast
--- NOTE | 2019-11-30 16:08 | Discharge Summary ---
Date of Service November 30, 2019 Admission HPI Per Admitting Provider History obtained from patient and records. Medical history significant for chronic systolic heart failure secondary to ischemic cardiomyopathy (EF 30 to 35%, TTE 2018), CAD status post CABG, sp recent TAVR sp prosthetic valve rupture sp repair (12/2016), history of AFib/AFlutter, on Coumadin, history of CVA, PVD, DM2, insulin requiring, chronic anemia (baseline hemoglobin 11-12), hx choledocholithiasis status post biliary stent removal/replacement. Recent confinement March 2019 for sepsis secondary to complicated pneumonia. During confinement patient found to have calculous cholecystitis. Subsequently ERCP with biliary stent placement during confinement. Recent outpatient follow-up with [facility] General Surgery last month. Elective laparoscopic cholecystectomy with cholangiogram contemplated last November 03 pending outpatient preop Cardiology eval as per note. Patient [place] [facility] [place] for preop eval last month. Patient deemed high risk for hetal-op complications as per note. Biliary stent removed by GI 2 weeks ago. Patient not medically fit for cholecystectomy as per GI note. Ursodiol trial recommended. Last night patient noted achy right flank pain with nausea without emesis. No f ever, chills. No chest pain. Usual shortness of breath. At the ER, patient received IV Zosyn for cholecystitis. MEDICAL HISTORY: As above. SURGERIES: Aortic valve replacement, CABG, mitral valve plasty, cataract surgery, laser trabeculoplasty, urologic procedure, sternum separation, great toe amputation, FAMILY HISTORY: Cirrhosis PERSONAL AND SOCIAL HISTORY: Nonsmoker, no chronic ETOH intake. 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 Admission Exam Per Admitting Provider GENERAL: Comfortable, pleasant, no respiratory distress SKIN: Pallor , warm HEENT: Bespectacled, pale palpebral conjunctivae, no ptosis, dry buccal mucosa NECK : Supple, no tenderness CHEST : CTA, no tenderness HEART : Irregular, systolic murmur ABDOMEN: Some distention, nontender EXTREMITIES : No LE swelling/tenderness, no other conspicuous deformities noted NEUROLOGIC : Coherent, no facial asymmetry, no other gross focality Principal Diagnosis ACUTE CHOLANGITIS, CHOLEDOCHOLITHIASIS, STATUS POST ERCP, CHOLELITHIASIS; MSSA BACTEREMIA; ACUTE RENAL FAILURE; ISCHEMIC CARDIOMYOPATHY Discharge Exam General- oriented x 3, not in distress, speaks in sentences with no effort or accessory muscle use Eyes- anicteric Neck- no JVD Lungs-crackles at the bilateral bases, no wheezing Heart- normal rate, irregularly irregular rhythm; no murmurs Abdomen- normal bowel sounds, mildly distended, soft, nontender Extremities-mild bilateral lower leg edema, no calf tenderness Neuro- alert, oriented x 3; no gross focal neurologic deficits Skin- warm & dry Discharge Data Allergies Allergy/AdvReac Type Severity Reaction Status Date / Time lisinopril AdvReac Mild COUGH Verified 11/12/19 05:49 Consultations 11/26/19 04:58 ED Decision to Admit Stat 11/26/19 06:55 Consult Cardiology Routine Consult General Surgery Routine 11/26/19 07:36 Consult Gastroenterology Routine 11/28/19 11:40 Consult Infectious Diseases Routine 11/29/19 08:25 Consult Nephrology Routine 11/30/19 15:18 Burn CD for patient Stat Procedures Performed Operation Date: 11/26/19 07:30 Actual Procedures p Endoscopic Retrograde Cholangiopancreatogram(Not Applicable) - Demi Dowell MD Ordered Studies 11/26/19 01:59 US gallbladder Urgent COMPARISON STUDY: CT of the abdomen and pelvis April 18, 2019. Fluoroscopic images from ERCP P November 12, 2019. FINDINGS: Incidental note is made of a right pleural effusion. The liver is cirrhotic. No hepatic lesions are identified. Gallstones within the gallbladder are noted. There is also sludge/debris within the gallbladder. Sonographic Porter sign could not be assessed for. Gallbladder wall thickening is noted. The gallbladder wall measures 5 mm in thickness. There is suspected gas within the gallbladder lumen, as shown on CT of April 18, 2019. Caliber of the common bile duct is at the upper limits of normal, measuring 6 mm. There are echogenic foci within the common bile duct. The pancreatic body is normal. The head and tail are obscured. There is a 1.8 cm right renal cyst. No right hydronephrosis is present. Small amount of perihepatic ascites is noted. IMPRESSION: 1. Cholelithiasis with gallbladder wall thickening. Suspected gas within the gallbladder lumen, possibly from prior sphincterotomy. As shown on prior CT of April 18, 2019. The findings raise the possibility of acute cholecystitis. 2. Top normal caliber common bile duct. Echogenic foci within the common bile duct could reflect pneumobilia or stones. 3. Cirrhosis. Small amount of perihepatic ascites. 4. Right pleural effusion. 11/26/19 12:30 FL ERCP biliary ductal Routine FINDINGS: Image intensifier support was provided for retrograde evaluation of the biliary ductal system. No significant stenosis is appreciated. Filling defects are present which are most likely related to air bubbles. Possibility of choledocholithiasis is considered. This is considered, however less likely. This images followed by placement of right stent IMPRESSION: Image intensifier support for ERCP 11/29/2019 XR chest 1V portable HISTORY: crackles COMPARISON: Chest 11/26/2019. FINDINGS: The heart remains mildly enlarged. There are poststernotomy changes. Small bilateral pleural effusions and mild interstitial pulmonary edema has progressed. Left basilar densities remain unchanged. No pneumothorax. IMPRESSION: Interval progression of the mild interstitial pulmonary edema and small bilateral pleural effusions. Left basilar densities persist and could represent atelectasis or pneumonia. Hospital Course (1) Right flank pain: 74-year-old male with history of cholelithiasis, systolic CHF, ischemic cardiomyopathy of 30 to 35%, coronary disease/CABG, Aortic stenosis status post TAVR, atrial fibrillation on Coumadin, history of CVA, diabetes type 2 presenting with right leg pain. Cholelithiasis Acute cholangitis with choledocholithiasis MSSA bacteremia --Initially evaluated by general surgery service Right flank pain felt to be secondary to choledocholithiasis, referred to GI --GI consulted, ERCP performed 11/26/2019 CBD stone removed, pus also drained from common bile duct, stents placed --Blood cultures: 1 bottle positive for MSSA Repeat blood cultures ordered: Pending, please follow Transthoracic echo: No vegetation noted EF 30 to 35%, normal gradient for prosthetic aortic valve, no change from previous study --LFTs remain elevated Total bilirubin 3.2--> 2.3, direct bilirubin 2.2--> 1.6 AST 49, ALT 59, alk phos 242 Discussed with GI, monitor closely --Continue Zosyn GI recommends transfer to [facility] in [place] for further evaluation and management including possible axio stent placement And neurosurgery evaluation for cholecystectomy -- ID consulted, recommend Ceftriaxone IV x 14 days from 1st day of negative blood cultures Consult ID Acute renal injury on CKD 3, likely ATN from bacteremia -- crea noted to be gradually increasing since admission, further increased from 1.3 now up to 2.3 -- IV NSS given Now positive volume overload, decreasing urine output Nephro consulted, meant to DC IV NSS and start Lasix 40 mg IV 1 dose --Monitor closely, may need further Lasix doses --Consult nephrology History of chronic systolic congestive heart failure, ischemic cardiomyopathy 30 to 35% -- Evaluated by cardiology service preoperatively -- Diuretics held for procedures --Currently positive volume overload, with acute renal injury --Echo results noted in #1 --Consult cardiology History of CAD, CABG --No chest pain Aspirin on hold, continue metoprolol, Lipitor Atrial fibrillation on chronic Coumadin --INR 2.9, vitamin K given, now 1.6 Coumadin on hold for now in light of procedure per #1 Diabetes type 2 --Sliding scale History of CVA --Aspirin on hold DVT prophylaxis Heparin subcutaneous 3 times daily Disposition Transfer to [facility] for further evaluation management Discussed case with Dr. Carpenter-hospitalist and GI instructional consultant in detail Plan of care also discussed with patient and his at the bedside in detail and at length All questions were answered They are understanding, agreeable, comfortable with the plan of care Total Time Total Time Spent Total Time Spent (In Minutes): 65 minutes Discharge Plan Discharge Items Patient Disposition: Transfer Acute Care Hospital Reason For Visit: RESP FAILURE Discharge Diagnosis: Acute cholangitis, choledocholithiasis, status post ERCP and common bile duct stent placement MSSA bacteremia Acute renal failure, likely acute tubular necrosis Volume overload, acute on chronic systolic CHF exacerbation History of CAD Atrial fibrillation on chronic Coumadin use History of TAVR Activity: As commented below Activity Comment: Bedrest with bathroom privileges Non-emergency contact: Primary Care Provider Call non-emergency contact if: you have any medication questions, your symptoms worsen, your pain is not controlled, your pain is worsening, your pain is unusual for you, your pain is concerning for you and you have a fever Follow-up/Referrals: Barrera Puri MD [Primary Care Provider] - Diet: Carb Consistent or DM2 and Heart Healthy Addtl Attending Provider Instructions: Please refer to accompanying hospital discharge summary for further details Pending Studies at Discharge: Yes Studies:: Please refer to accompanying hospital discharge summary for further details. Stand-Alone Forms: My [employer] Skilled Items Patient informed of condition?: Yes DNR: No Discharge Level of Care: Other Communicable Disease: No Discharge Prognosis: Other Lines: Peripheral IV Urinary Catheter: No Medications and DC Order Prescriptions: Continued atorvastatin 40 mg Tablet 40 mg PO HS RF: 0 sennosides 8.6 mg Tablet 8.6 mg PO DAILY PRN (Reason: Constipation) RF: 0 polyethylene glycol 3350 [Miralax] 17 gram Powder In Packet 17 g PO DAILY PRN (Reason: Constipation) RF: 0 acetaminophen [Tylenol Extra Strength] 500 mg Tablet 500 mg PO Q4 PRN (Reason: Fever Or Pain) RF: 0 tamsulosin [Flomax] 0.4 mg Capsule 0.4 mg PO HS RF: 0 nitroglycerin [Nitrostat] 0.4 mg Tablet, Sublingual 0.4 mg sublingual DIRECTED PRN (Reason: Chest Pain) RF: 0 docusate sodium 100 mg Capsule 100 mg PO BID PRN (Reason: Constipation) RF: 0 zolpidem 5 mg Tablet 5 mg PO HS PRN (Reason: Sleep) RF: 0 magnesium oxide 400 mg magnesium Tablet 400 mg PO QPM RF: 0 gabapentin 100 mg Capsule 100 mg PO TID RF: 0 metoprolol succinate 25 mg Tablet Extended Release 24 Hr 25 mg PO QAM RF: 0 buspirone 10 mg tablet 10 mg PO TID RF: 0 Discontinued Lantus Solostar U-100 Insulin 100 unit/mL (3 mL) insulin pen 75 - 100 unit SC HS RF: 0 torsemide 20 mg Tablet 20 mg PO UD RF: 0 aspirin [Aspir-81] 81 mg Tablet,Delayed Release (Dr/Ec) 81 mg PO QAM RF: 0 warfarin 5 mg Tablet 5 mg PO QPM RF: 0 spironolactone 25 mg Tablet 25 mg PO BID RF: 0 Discharge Orders: Discharge Order (Routine); Ordered 11/30/19 Ordered By: Taj Durham Admission Data Admit Date/Time: 11/26/19 05:43 Attending Provider: Taj Durham Admit Provider: Jacques Vang Primary Care Provider: Barrera Puri Other Providers: Jacques Vang ; Case Carrillo ; Gary Duff ; Royce Madera ; Elysia Alejandro ; Praveen Abad
[2019-11-30] MEDS: TRAMADOL HCL 50 MG TABLET PO PRN (16:33)
--- NOTE | 2019-11-30 17:24 | Nephrology Progress Note ---
Date of Service November 30, 2019 Assessment & Plan (1) MARISA (acute kidney injury): Patient with acute kidney injury likely due to ischemic ATN in setting of sepsis. Patient hypotensive with systolic in the 80s in the past 48 hours. Blood pressure is now better. Creatinine still up trending to 2.3. Will continue to monitor renal function closely with daily BMP. Avoid hypotension and nephrotoxins. No indication for dialysis at the moment (2) Gram positive sepsis: Due to Staph aureus. Patient is on Zosyn per primary team. Renally dose antibiotics for current GFR. Admission and Anticipated Discharge Date Admission Date: November 26, 2019 Subjective Patient seen in the morning during rounds. He is complaining of fatigue and lizet rtness of breath with minimal exertion. He is getting IV Zosyn for Staph bacteremia. Creatinine is up trending to 2.3 today Review of Systems Review of Systems: All systems reviewed & are unremarkable except as noted in HPI & below Physical Exam Physical Exam: General exam: Appears comfortable, no acute distress, intermittently drowsy HEENT: Pupils are equal and reactive to light Neck: No JVD, neck is supple trachea is midline Respiratory system: Clear breath sounds bilaterally. Gastrointestinal: Abdomen is soft, tender in certain areas, bowel sounds are present CVS: Regular rate and rhythm. No murmurs, rubs or gallops Musculoskeletal: No joint or muscle tenderness Extremities: Non tender, no edema, peripheral pulses are present Neuro: Oriented, no tremors, no focal neurological deficits Skin: No rashes Results & Data ([facility]) Vital Signs (Past 12 Hours) Vital Signs Temp Pulse Resp BP BP Pulse Ox 11/30/19 15:45 36.5 C 102 H 16 143/80 H 95 11/30/19 12:27 36.5 C 96 H 18 99/57 L 152/100 H 97 11/30/19 07:58 36.5 C 70 21 88/57 L 100/66 98 Laboratory Results 11/30/19 06:47 11/30/19 11/30/19 06:47 06:47 WBC 12.91 H RBC 4.55 L MCV 78.2 L MCH 25.1 MCHC 32.0 RDW Std Deviation 52.4 H RDW Coeff of Abi 18.3 H Plt Count 184 MPV 10.6 H Albumin 2.2 L
[2019-11-30 18:41] VITALS: TEMP 98.6; O2SAT 97
[2019-11-30 19:59] VITALS: BP 152/100; PULSE 98
--- NOTE | 2019-12-02 10:59 | Coding Query ---
SEPSIS To promote full compliance with coding requirements relating to patient care, physician participation is requested in all cases of executive manager uncertainty. Please assist us with the question(s) below: In responding to this query, please exercise your independent professional judgement. The fact that a question is asked does not imply that any particular answer is desired or expected. We appreciate your clarification on this issue. Coding Question: Both Sepsis and Bacteremia were documented later in the chart, please clarify below to the best of your knowledge if the patient was treated for sepsis during their stay. thank you so much for your help! Have a great day! () Sepsis, present on admission () Sepsis, not present on admission () Sepsis, ruled-out (x) Bacteremia, present on admission () Bacteremia, not present on admission () Bacteremia, ruled-out () Other, patient has: MTDD
== END 2019-11-30 20:09 | disposition short-term general hospital (02) | DRG 408 ==
LOC: ED 23:14 → 2S 11-26 05:43

== ENCOUNTER 2019-12-10 11:03 | Inpatient (IN) ==
[2019-12-10] MEDS ORDERED: SODIUM CHLORIDE 0.9% 1000ML 1,000 ML IV SCH ×2 (11:45→14:33)
--- NOTE | 2019-12-10 11:53 | Gastrointestinal Consultation ---
Date of Consultation December 10, 2019 Assessment & Plan (1) MSSA bacteremia: (2) Cholecystitis: (3) Cholelithiasis: (4) GI bleed: Pt is a 74 y/o male w hx of chronic cholecystitis, cholangitis who is a poor surgical candidate due to cardiac comorbidities, currently presenting w melena x 3 days and black coffee ground emesis 2 days ago. He is s/p biliary stents placements on 11/26, Axios stent [place]02 [facility] Found to have duodenal erosions on EGD on 12/02. He had been on Coumadin 5mg up till 12/06, Lovenox inj till yesterday evening. Had ASA 81mg this AM. Suspect bleeding from duodenal erosions vs from Axios stent placement. - Obtain labs: CBC, CMP, PT/INR; transfuse blood prn - Correct INR goal <1.5 - Continue IV antibx for MSSA bacteremia - PPI bolus and gtt - We are unable to perform EGD eval today as he had solid meals for breakfast this AM. Will keep him NPO after midnight for EGD eval tomorrow by Dr. Dowell. Supervising Physician Co-Signing Physician Notes I performed a history and physical examination of the patient today, including specifically on physical exam - soft abdomen. I have discussed the patient's management with the advanced practitioner. Please refer to the nurse werner melgar's note for the documented findings and plan of care. Patient with coffee ground emesis and melena, hemodynamically stable, has drop in H/H and elevated BUN, planned for urgent EGD today however he had full breakfast which will preclude visualization. Recommend: IV PPI. EGD/ERCP tomorrow. Patient also wants ERCP done at the same time to remove the biliary stent and avoid another sedation. History of Present Illness Reason for Consultation: GI bleed Requesting Physician: Dr. Rashid Rodriguez Attending Physician: Dr. Demi Dowell History of Present Illness Pt is a 74 y/o male who presented to ED today from [facility] rehab with black tarry stools x 3 days. He also reported an episode of black w coffee ground emesis 3/10 night. He denies fever, chills, CP, SOB, abd pain. He has hx of chronic cholecystitis, cholangitis, not a good surgical candidate due to cardiac comorbidities. He was just admitted here 11/26 to 11/29 w cholangitis. Blood cx + for MSSA, he's been getting Zosyn IV due to complete on 12/11. He underwent ERCP 11/26 for cholangitis, choledocholithiasis removal, 2 plastic biliary stents placed in CBD. He was transferred [place] [facility] [place]29 and underwent placement of 15 x 10mm covered metal stent at 30C of the duodenal bulb to serve as cholecystoduodenostomy on 12/02. He was also found to have duodenal erosions during his EGD on 12/02. Pt DC'd back to [facility] on 12/04. He presented to [facility] ED on 12/07 w SOB. H/H at that time . He started having black emesis w coffee grounds & black tarry stools that evening when he was back at [facility]. His Coumadin was held on 12/07, 12/08 (last dose 12/06 Coumadin 5mg). INR on 12/06 1.46. He had since been given Lovenox injections, last dose yesterday evening. He continues to take ASA 81mg up till this AM. His blood ct at [facility] was 7.06/25 this AM. Allergies Allergy/AdvReac Type Severity Reaction Status Date / Time lisinopril AdvReac Mild COUGH Verified 12/10/19 12:56 Home Medications Home Medications Medication Instructions Recorded Confirmed Type atorvastatin [Lipitor] 40 mg PO HS 04/05/19 12/10/19 History magnesium oxide 400 mg PO QAM 04/05/19 12/10/19 History nitroglycerin [Nitrostat] 0.4 mg SUBLINGUAL DIRECTED PRN 04/05/19 12/10/19 History polyethylene glycol 3350 [Miralax] 17 g PO QDL PRN 04/05/19 12/10/19 History tamsulosin [Flomax] 0.4 mg PO QAM 04/05/19 12/10/19 History zolpidem [Ambien] 5 mg PO HS 04/05/19 12/10/19 History gabapentin [Neurontin] 100 mg PO TID 05/29/19 12/10/19 History metoprolol succinate [Toprol XL] 25 mg PO QAM 05/29/19 12/10/19 History buspirone 10 mg PO TID 11/25/19 12/10/19 History aspirin 81 mg PO QAM 12/08/19 12/10/19 History docusate sodium [Colace] 100 mg PO BID 12/08/19 12/10/19 History enoxaparin [Lovenox] 40 mg SUBCUT DAILY@1900 12/08/19 12/10/19 History insulin regular human [Humulin R 1 sliding scale dose SUBCUT ACHS 12/08/19 12/10/19 History Regular U-100 Insuln] pantoprazole [Protonix] 40 mg PO BID 12/08/19 12/10/19 History piperacillin-tazobactam [Zosyn] 3.375 g IV Q8H 12/08/19 12/10/19 History spironolactone [Aldactone] 25 mg PO QAM 12/08/19 12/10/19 History torsemide 20 mg PO QDD 12/08/19 12/10/19 History torsemide 40 mg PO QAM 12/08/19 12/10/19 History warfarin [Coumadin] 0 mg PO UD 12/08/19 12/10/19 History acetaminophen [Tylenol] 325 mg PO Q4H PRN 12/10/19 12/10/19 History bisacodyl [Dulcolax (bisacodyl)] 10 mg IA DAILY PRN 12/10/19 12/10/19 History dextrose 50 % in water (D50W) 50 ml IV UD PRN 12/10/19 12/10/19 History glucagon (human recombinant) 1 mg SUBCUT UD PRN 12/10/19 12/10/19 History ondansetron 4 mg PO Q6H PRN 12/10/19 12/10/19 History sennosides-docusate sodium 1 tab-cap PO QDL PRN 12/10/19 12/10/19 History [Senokot-S] sodium chloride 0.9 % (flush) 10 ml IV BID 12/10/19 12/10/19 History [Normal Saline Flush] sodium phosphates [Enema] 133 ml IA DAILY PRN 12/10/19 12/10/19 History Patient History Medical History (Updated 12/10/19 @ 13:19 by Precious Waller PA-C) Anxiety Aortic stenosis s/p TAVR with MV replacement 12/2016. Atrial fibrillation ON WARFARIN - FOLLOWS W/ DR. KOWALSKI Cardiac murmur Severe mitral annular calcification per 03/2019 echo. Limited echo, valves not well visualized. H/O MV repair and AVR. CHF (congestive heart failure) Cholecystitis, chronic Chronic respiratory failure with hypoxia Chronic systolic (congestive) heart failure Coronary artery disease s/p CABG 2002 Degenerative disc disease Diabetes mellitus, type II IDDM Diabetic neuropathy Diverticular disease Dyslipidemia GERD (gastroesophageal reflux disease) History of recent pneumonia HOSPITALIZED 03/2019 [facility] History of renal calculi Hypertension Ischemic cardiomyopathy EF 25-30%, pt refused ICD. On anticoagulant therapy SOB (shortness of breath) on exertion Spinal stenosis Stroke 2 YEARS AGO - WEAKNESS LEFT SIDE Transient ischemic attack (TIA) 2016 Surgical History Difficult airway Glidescope #4 atraumatic attempt x 1, 04/05/19 History of aortic valve replacement History of TAVR complicated by prosthetic fracture and then underwent open surgical aortic valve replacement, mitral valve repair in 2016 History of cardiac cath 2 YEARS AGO - [facility] - NO STENTS/ANGIOPLASTY --> VALVE REPLAC EMENT History of cardiac radiofrequency ablation For A flutter, 2005. History of cardioversion History of cataract surgery History of chest tube placement During admission 04/05 - 04/28 for empyema History of ERCP 04/09/19. Glidescope #4. History of mitral valve repair 01/22/2017 History of thoracentesis 04/10/19 Status post coronary artery bypass grafting 15 YEARS AGO - 3 VESSELS Family History Father Cirrhosis Social History Preferred Language: Estonian Communication Ability: Effective Security System Analyst Required: No Beliefs That Will Affect Care: None marital status: Current Living Situation: Skilled Nursing Other Information That Helps Us Care for You: No Feels Safe at Home: Yes Safety Concerns: Feels Safe At This Time Smoking Status: Never smoker Tobacco Type: smokeless tobacco ; Do You Dip or Chew Tobacco: No ; Second Hand Exposure: No ; Tobacco Cessation Education Requested by Patient: No Hx Alcohol Use: No Hx Substance Use: No Review of Systems Review of Systems: All systems reviewed & are unremarkable except as noted in HPI & below Physical Exam Constitutional: WD/WN, vitals as above well groomed, cooperative and comfortable Eyes: PERRL, conjunctivae normal, anicteric sclerae ENMT: external ear and nose normal, oropharynx normal Respiratory: normal respiratory effort, lungs clear to auscultation Cardiovascular: RRR, no murmur, no edema Gastrointestinal (Abdomen): normal bowel sounds, soft, nontender, no hepatosplenomegaly Skin: no rashes, warm and dry no jaundice Psychiatric: A+Ox3, euthymic affect Lymphatic: no lymphedema Results & Data ([facility]) Vital Signs (Past 12 Hours) Vital Signs Temp Pulse Resp BP Pulse Ox 12/10/19 11:12 36.9 C 101 H 17 111/76 98
--- NOTE | 2019-12-10 11:55 | Emergency Department Note ---
History of Present Illness General Chief complaint: GI Bleed Stated complaint: gi bleed Time Seen by Provider: 12/10/19 11:35 History of Present Illness Provider complaint: GI bleed 74-year-old male on Coumadin presents to the emergency department for GI bleed. Patient had melanotic stools today and coffee-ground emesis 3 days ago while at [facility]. He denies any chest pain or abdominal pain. He does report shortness of breath which is chronic. Home Medications Home Medications Medication Instructions Recorded Confirmed Type atorvastatin [Lipitor] 40 mg PO HS 04/05/19 12/10/19 History magnesium oxide 400 mg PO QAM 04/05/19 12/10/19 History nitroglycerin [Nitrostat] 0.4 mg SUBLINGUAL DIRECTED PRN 04/05/19 12/10/19 History polyethylene glycol 3350 [Miralax] 17 g PO QDL PRN 04/05/19 12/10/19 History tamsulosin [Flomax] 0.4 mg PO QAM 04/05/19 12/10/19 History zolpidem [Ambien] 5 mg PO HS 04/05/19 12/10/19 History gabapentin [Neurontin] 100 mg PO TID 05/29/19 12/10/19 History metoprolol succinate [Toprol XL] 25 mg PO QAM 05/29/19 12/10/19 History buspirone 10 mg PO TID 11/25/19 12/10/19 History aspirin 81 mg PO QAM 12/08/19 12/10/19 History docusate sodium [Colace] 100 mg PO BID 12/08/19 12/10/19 History enoxaparin [Lovenox] 40 mg SUBCUT DAILY@1900 12/08/19 12/10/19 History insulin regular human [Humulin R 1 sliding scale dose SUBCUT ACHS 12/08/19 12/10/19 History Regular U-100 Insuln] pantoprazole [Protonix] 40 mg PO BID 12/08/19 12/10/19 History piperacillin-tazobactam [Zosyn] 3.375 g IV Q8H 12/08/19 12/10/19 History spironolactone [Aldactone] 25 mg PO QAM 12/08/19 12/10/19 History torsemide 20 mg PO QDD 12/08/19 12/10/19 History torsemide 40 mg PO QAM 12/08/19 12/10/19 History warfarin [Coumadin] 0 mg PO UD 12/08/19 12/10/19 History acetaminophen [Tylenol] 325 mg PO Q4H PRN 12/10/19 12/10/19 History bisacodyl [Dulcolax (bisacodyl)] 10 mg AR DAILY PRN 12/10/19 12/10/19 History dextrose 50 % in water (D50W) 50 ml IV UD PRN 12/10/19 12/10/19 History glucagon (human recombinant) 1 mg SUBCUT UD PRN 12/10/19 12/10/19 History ondansetron 4 mg PO Q6H PRN 12/10/19 12/10/19 History sennosides-docusate sodium 1 tab-cap PO QDL PRN 12/10/19 12/10/19 History [Senokot-S] sodium chloride 0.9 % (flush) 10 ml IV BID 12/10/19 12/10/19 History [Normal Saline Flush] sodium phosphates [Enema] 133 ml AR DAILY PRN 12/10/19 12/10/19 History Allergies Allergy/AdvReac Type Severity Reaction Status Date / Time lisinopril AdvReac Mild COUGH Verified 12/10/19 12:56 Past Med/Surg History Medical History (Updated 12/10/19 @ 13:19 by Precious Waller PA-C) Anxiety Aortic stenosis s/p TAVR with MV replacement 12/2016. Atrial fibrillation ON WARFARIN - FOLLOWS W/ DR. KOWALSKI Cardiac murmur Severe mitral annular calcification per 03/2019 echo. Limited echo, valves not well visualized. H/O MV repair and AVR. CHF (congestive heart failure) Cholecystitis, chronic Chronic respiratory failure with hypoxia Chronic systolic (congestive) heart failure Coronary artery disease s/p CABG 2002 Degenerative disc disease Diabetes mellitus, type II IDDM Diabetic neuropathy Diverticular disease Dyslipidemia GERD (gastroesophageal reflux disease) History of recent pneumonia H[facility]PITALIZED 03/2019 [facility] History of renal calculi Hypertension Ischemic cardiomyopathy EF 25-30%, pt refused ICD. On anticoagulant therapy SOB (shortness of breath) on exertion Spinal stenosis Stroke 2 YEARS AGO - WEAKNESS LEFT SIDE Transient ischemic attack (TIA) 2016 Surgical History Difficult airway Glidescope #4 atraumatic attempt x 1, 04/05/19 History of aortic valve replacement History of TAVR complicated by prosthetic fracture and then underwent open surgical aortic valve replacement, mitral valve repair in 2017 History of cardiac cath 2 YEARS AGO - [facility] - NO STENTS/ANGIOPLASTY --> VALVE REPLA CEMENT History of cardiac radiofrequency ablation For A flutter, 2005. History of cardioversion History of cataract surgery History of chest tube placement During admission 04/05 - 04/28 for empyema History of ERCP 04/09/19. Glidescope #4. 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 Beliefs That Will Affect Care: None marital status: Current Living Situation: Half-Way Other Information That Helps Us Care for You: No Feels Safe at Home: Yes Safety Concerns: Feels Safe At This Time Smoking Status: Never smoker Tobacco Type: smokeless tobacco ; Do You Dip or Chew Tobacco: No ; Second Hand Exposure: No ; Tobacco Cessation Education Requested by Patient: No Hx Alcohol Use: No Hx Substance Use: No Review of Systems A total of 10 systems reviewed and were otherwise negative Physical Exam Vital Signs Vital Signs - 24 hr 12/10/19 11:12 12/10/19 11:30 12/10/19 12:00 Temperature 36.9 C Temperature Source Oral Pulse Rate 101 H 92 H 93 H Pulse Rate from SpO2 Sensor 93 H 92 H Respiratory Rate 17 21 20 Respiratory Effort / Characteristics Non-Labored Respiratory Depth Normal Respiratory Pattern Regular Blood Pressure 111/76 Blood Pressure Mean 87 Pulse Oximetry 98 98 98 Oxygen Delivery Method Room Air Sepsis Recent Fever Within 48 Hours No Sepsis New/Unexplained Change in Mental Status No Sepsis Action Taken by Nursing No Action Required 12/10/19 12:04 12/10/19 12:48 12/10/19 13:00 Temperature Temperature Source Pulse Rate 95 H 103 H Pulse Rate from SpO2 Sensor 94 H 95 H 105 H Respiratory Rate 13 19 Respiratory Effort / Characteristics Respiratory Depth Respiratory Pattern Blood Pressure 109/57 L Blood Pressure Mean 68 Pulse Oximetry 97 99 98 Oxygen Delivery Method Sepsis Recent Fever Within 48 Hours Sepsis New/Unexplained Change in Mental Status Sepsis Action Taken by Nursing 12/10/19 13:01 Temperature Temperature Source Pulse Rate 97 H Pulse Rate from SpO2 Sensor 102 H Respiratory Rate 20 Respiratory Effort / Characteristics Respiratory Depth Respiratory Pattern Blood Pressure Blood Pressure Mean 67 Pulse Oximetry 98 Oxygen Delivery Method Sepsis Recent Fever Within 48 Hours Sepsis New/Unexplained Change in Mental Status Sepsis Action Taken by Nursing Physical Exam GENERAL: He is oriented to person, place, and time. He appears well-developed and well-nourished. He does not appear distressed. HENT: Exam performed. - Head: Normocephalic and atraumatic. - Right Ear: External ear normal. No mastoid tenderness. - Left Ear: External ear normal. No mastoid tenderness. - Mouth/Throat: The oropharynx is clear and moist. No trismus in the jaw. No dental abscesses or uvula swelling. No oropharyngeal exudate or tonsillar abscesses. EYES: Conjunctivae and EOM are normal. Pupils are equal, round, and reactive to light. Right eye exhibits no discharge. Left eye exhibits no discharge. No scleral icterus. NECK: Normal range of motion. Neck supple. No JVD present. No spinous process tenderness present. No carotid bruit present. No rigidity. No tracheal deviation and normal range of motion present. No Brudzinski's sign and no Kernig's sign noted. CV: Normal rate, regular rhythm, normal heart sounds and intact distal pulses. There is no peripheral edema. Palpable radial pulses bue. PULM/CHEST: Effort normal and breath sounds normal. No respiratory distress. No stridor. He has no wheezes. He has no rales. - Chest Wall: He exhibits no tenderness. ABD: The abdomen is soft. Bowel sounds are normal. He has no distension. No mass is present. There is no tenderness. There is no rebound, no guarding, no Porter's sign and no tenderness at McBurney's point. Rovsig negative. MUSC/SKEL: Normal range of motion. There is no peripheral edema, tenderness or deformity. LYMPH: No cervical adenopathy. NEURO: He is alert and oriented to person, place, and time. He has normal strength. No cranial nerve deficit or sensory deficit. Coordination and gait normal. GCS eye subscore is 4. GCS verbal subscore is 5. GCS motor subscore is 6. Cerebellar tests wnl. SKIN: Skin is warm and dry. He is not diaphoretic. PSYCH: He has a normal mood and affect. Behavior is normal. Judgment and thought content normal. Course Course 1149: The patient was evaluated in room A3. A complete history and physical exam was performed. Gastroenterology JED Rodriguez came down and evaluated the patient stated the patient should be admitted to hospital service and started on Protonix. And is in agreement with this plan cardiac monitoring: An order was placed for continuous cardiac monitoring. The monitor shows a rate of 89 with atrial fibrillation 1212: Spoke with Gracia who stated to admit to Dr. Allen. Hemoglobin is stable at this time. Administered Medications Sodium Chloride (Nss 1000ml) 1,000 mls @ 125 mls/hr IV .Q8H [facility] Stop: 01/09/20 11:44 Last Admin: 12/10/19 12:01 Dose: 125 mls/hr Documented by: [id number] Pantoprazole Sodium 40 mg/ (Dextrose) 100 mls @ 20 mls/hr IV Q5H [facility] Stop: 01/09/20 12:14 Last Admin: 12/10/19 12:43 Dose: 8 mg/hr, 20 mls/hr Documented by: [id number] Discontinued Medications Pantoprazole Sodium 80 mg/ (Dextrose) 120 mls @ 480 mls/hr IV TODAY@1200 [facility] Stop: 12/10/19 12:14 Last Infusion: 12/10/19 12:43 Dose: 0 mls/hr Documented by: [id number] Admin: 12/10/19 12:23 Dose: 480 mls/hr Documented by: [id number] Medical Decision Making Laboratory Data Result diagrams: 12/10/19 11:55 12/10/19 11:55 Lab Results 12/10/19 12/10/19 12/10/19 Range/Units 11:55 11:55 11:55 WBC 9.32 (4.8-10.8) K/uL RBC 3.23 L (4.7-6.1) M/uL Hgb 8.1 L (14.0-18.0) g/dL Hct 26.6 L (42-52) % MCV 82.4 (80-100) fL MCH 25.1 (25-34) pg MCHC 30.5 L (32-36) g/dL RDW Std Deviation 57.0 H (36.4-46.3) fL RDW Coeff of Abi 19.2 H (11.5-14.5) % Plt Count 234 (130-400) K/uL MPV 9.6 (7.4-10.4) fL Immature Gran % (Auto) 0.3 % Neut % (Auto) 86.4 % Lymph % (Auto) 4.7 % Edmonson % (Auto) 5.6 % Eos % (Auto) 2.6 % Baso % (Auto) 0.4 % Immature Gran # (Auto) 0.03 H (0.00-0.02) K/uL Neut # (Auto) 8.05 H (1.4-6.5) K/uL Lymph # (Auto) 0.44 L (1.2-3.4) K/uL Edmonson # (Auto) 0.52 (0.11-0.59) K/uL Eos # (Auto) 0.24 (0-0.5) K/uL Baso # (Auto) 0.04 (0-0.2) K/uL PT 15.6 H (9.0-12.0) Seconds INR 1.5 H (0.9-1.1) APTT 28.6 (21.0-31.0) Seconds PTT Ratio 1.0 Sodium (136-145) mmol/L Potassium (3.5-5.1) mmol/L Chloride (98-107) mmol/L Carbon Dioxide (21-32) mmol/L Anion Gap (3-11) BUN (7-18) mg/dl Creatinine (0.6-1.4) mg/dl Est Cr Clr Drug Dosing ml/min Est GFR ( Amer) Est GFR (Non-Af Amer) BUN/Creatinine Ratio (10-20) Glucose (70-99) mg/dl Calcium (8.5-10.1) mg/dl Total Bilirubin (0.2-1) mg/dl Direct Bilirubin (0-0.2) mg/dl AST (15-37) U/L ALT (12-78) U/L Alkaline Phosphatase (45-117) U/L Total Protein (6.4-8.2) gm/dl Albumin (3.4-5.0) gm/dl Lipase (73-393) U/L Blood Type A Positive Antibody Screen NEGATIVE 12/10/19 Range/Units 11:55 WBC (4.8-10.8) K/uL RBC (4.7-6.1) M/uL Hgb (14.0-18.0) g/dL Hct (42-52) % MCV (80-100) fL MCH (25-34) pg MCHC (32-36) g/dL RDW Std Deviation (36.4-46.3) fL RDW Coeff of Abi (11.5-14.5) % Plt Count (130-400) K/uL MPV (7.4-10.4) fL Immature Gran % (Auto) % Neut % (Auto) % Lymph % (Auto) % Edmonson % (Auto) % Eos % (Auto) % Baso % (Auto) % Immature Gran # (Auto) (0.00-0.02) K/uL Neut # (Auto) (1.4-6.5) K/uL Lymph # (Auto) (1.2-3.4) K/uL Edmonson # (Auto) (0.11-0.59) K/uL Eos # (Auto) (0-0.5) K/uL Baso # (Auto) (0-0.2) K/uL PT (9.0-12.0) Seconds INR (0.9-1.1) APTT (21.0-31.0) Seconds PTT Ratio Sodium 139 (136-145) mmol/L Potassium 4.0 (3.5-5.1) mmol/L Chloride 104 (98-107) mmol/L Carbon Dioxide 29 (21-32) mmol/L Anion Gap 6.0 (3-11) BUN 47 H (7-18) mg/dl Creatinine 1.39 (0.6-1.4) mg/dl Est Cr Clr Drug Dosing 52.9 ml/min Est GFR ( Amer) 57.5 Est GFR (Non-Af Amer) 49.6 BUN/Creatinine Ratio 33.8 H (10-20) Glucose 210 H (70-99) mg/dl Calcium 8.6 (8.5-10.1) mg/dl Total Bilirubin 0.7 (0.2-1) mg/dl Direct Bilirubin 0.2 (0-0.2) mg/dl AST 14 L (15-37) U/L ALT 15 (12-78) U/L Alkaline Phosphatase 122 H (45-117) U/L Total Protein 6.7 (6.4-8.2) gm/dl Albumin 2.2 L (3.4-5.0) gm/dl Lipase 367 (73-393) U/L Blood Type Antibody Screen Imaging Data Radiologist's Impression: XR abdomen 2V w PA chest CLINICAL HISTORY: Abdominal pain, gastrointestinal bleeding. COMPARISON STUDY: 12/08/2019 FINDINGS: There are postsurgical changes of midline sternotomy. The heart is mildly enlarged. There are persistent bilateral pleural effusions. There are associated basilar airspace opacities, likely atelectatic. There is mild pulmonary vascular congestion. Erect and supine views the abdomen reveal no abnormally dilated loops of large or small bowel. There are no transition zones to indicate bowel obstruction. There are extensive vascular calcifications present. Multiple biliary enteric stents are visualized. IMPRESSION: 1. No evidence of bowel obstruction. No evidence of free air 2. Multiple biliary enteric stents are visualized 3. Mild congestive failure. Bilateral pleural effusions. Associated basilar airspace opacities. ACT 112: Negative or not required by law. Electronically signed by: Travon Sim M.D. 12/10/2019 12:47 PM Dictated: 12/10/19 1244 Transcribed: 12/10/19 1244 ECG Data Rate (beats per minute): 96 Rhythm: + atrial fibrillation Additional Comments: A. fib. Rate 96. QRS and Qtc intervals within normal limits. No ST elevation or ST depression. Right bundle branch block present. [facility] Narrative 1149: The patient was evaluated in room A3. A complete history and physical exam was performed. Gastroenterology JED Rodriguez came down and evaluated the patient stated the patient should be admitted to hospital service and started on Protonix. And is in agreement with this plan cardiac monitoring: An order was placed for continuous cardiac monitoring. The monitor shows a rate of 89 with atrial fibrillation 1212: Spoke with Gracia who stated to admit to Dr. Allen. Hemoglobin is stable at this time. Impression & Plan GI bleed Discharge Plan Visit Data Chief Complaint: GI Bleed Stated Complaint: gi bleed ED Provider: aRshid Curiel Discharge Problem: GI bleed Patient Disposition: Being Evaluated by Hospitalist Forms Stand Alone Forms: [facility], [facility] Prescriptions Prescriptions: No Action torsemide 20 mg tablet 40 mg PO QAM RF: 0 spironolactone [Aldactone] 25 mg tablet 25 mg PO QAM RF: 0 Humulin R Regular U-100 Insuln 100 unit/mL Solution 1 sliding scale dose SUBCUT ACHS RF: 0 docusate sodium [Colace] 100 mg Capsule 100 mg PO BID RF: 0 torsemide 20 mg tablet 20 mg PO QDD RF: 0 piperacillin-tazobactam [Zosyn] 3.375 gram Recon Soln 3.375 g IV Q8H RF: 0 pantoprazole [Protonix] 40 mg Tablet,Delayed Release (Dr/Ec) 40 mg PO BID RF: 0 aspirin 81 mg Tablet,Delayed Release (Dr/Ec) 81 mg PO QAM RF: 0 warfarin [Coumadin] 5 mg Tablet 0 mg PO UD RF: 0 enoxaparin [Lovenox] 40 mg/0.4 mL Syringe 40 mg SUBCUT DAILY@1900 RF: 0 acetaminophen [Tylenol] 325 mg Capsule 325 mg PO Q4H PRN (Reason: Fever Or Pain) RF: 0 sennosides-docusate sodium [Senokot-S] 8.6-50 mg Tablet 1 tab-cap PO QDL PRN (Reason: Constipation) RF: 0 bisacodyl [Dulcolax (bisacodyl)] 10 mg Suppository 10 mg AR DAILY PRN (Reason: Constipation) RF: 0 Enema 19-7 gram/118 mL Enema 133 ml AR DAILY PRN (Reason: Constipation) RF: 0 glucagon (human recombinant) 1 mg Recon Soln 1 mg subcut UD PRN (Reason: Unknown) RF: 0 ondansetron 4 mg Tablet,Disintegrating 4 mg PO Q6H PRN (Reason: Nausea) RF: 0 dextrose 50 % in water (D50W) Syringe 50 ml IV UD PRN (Reason: Unknown) RF: 0 sodium chloride 0.9 % (flush) [Normal Saline Flush] Syringe 10 ml IV BID RF: 0 atorvastatin [Lipitor] 40 mg Tablet 40 mg PO HS RF: 0 polyethylene glycol 3350 [Miralax] 17 gram Powder In Packet 17 g PO QDL PRN (Reason: Constipation) RF: 0 tamsulosin [Flomax] 0.4 mg Capsule 0.4 mg PO QAM RF: 0 nitroglycerin [Nitrostat] 0.4 mg Tablet, Sublingual 0.4 mg sublingual DIRECTED PRN (Reason: Chest Pain) RF: 0 zolpidem [Ambien] 5 mg Tablet 5 mg PO HS RF: 0 magnesium oxide 400 mg magnesium Tablet 400 mg PO QAM RF: 0 gabapentin [Neurontin] 100 mg Capsule 100 mg PO TID RF: 0 metoprolol succinate [Toprol XL] 25 mg Tablet Extended Release 24 Hr 25 mg PO QAM RF: 0 buspirone 10 mg tablet 10 mg PO TID RF: 0 Referrals Referrals: Barrera Puri MD [Primary Care Provider] -
[2019-12-10] MEDS ORDERED: PANTOprazole 80 MG in DEXTROSE 5% 100 ML IV SCH (12:00)
[2019-12-10 12:08] LABS: Basophils # (auto) 0.04 K/uL (0-0.2); Basophils % (auto) 0.4 %; Eosinophils # (auto) 0.24 K/uL (0-0.5); Eosinophils % (auto) 2.6 %; Hematocrit (blood only) 26.6 % (42-52); Hemoglobin 8.1 g/dL (14.0-18.0); Immature Granulocytes # (auto) 0.03 K/uL (0.00-0.02); Immature Granulocytes % (auto) 0.3 %; Lymphocytes # (auto) 0.44 K/uL (1.2-3.4); Lymphocytes % (auto) 4.7 %; Mean Corpuscular Hemoglobin 25.1 pg (25-34); Mean Corpuscular Hgb Conc 30.5 g/dL (32-36); Mean Corpuscular Volume 82.4 fL (80-100); Mean Platelet Volume 9.6 fL (7.4-10.4); Monocytes # (auto) 0.52 K/uL (0.11-0.59); Monocytes % (auto) 5.6 %; Neutrophils # (auto) 8.05 K/uL (1.4-6.5); Neutrophils % (auto) 86.4 %; Platelet Count 234 K/uL (130-400); RDW Coefficient of Variation 19.2 % (11.5-14.5); Red Blood Count 3.23 M/uL (4.7-6.1); White Blood Count 9.32 K/uL (4.8-10.8)
[2019-12-10 12:23] LABS: INR 1.5 (0.9-1.1); Partial Thromboplastin Time 28.6 Seconds (21.0-31.0); Prothrombin Time 15.6 Seconds (9.0-12.0)
[2019-12-10 12:26] LABS: Albumin Level 2.2 gm/dl (3.4-5.0); BUN Creatinine Ratio 33.8 (10-20); Calcium 8.6 mg/dl (8.5-10.1); Creatinine Clr Calc Pharmacy 52.9 ml/min; Est GFR (African American) 57.5; Est GFR (Non-African American) 49.6
[2019-12-10 12:29] LABS: Bilirubin Direct 0.2 mg/dl (0-0.2); Bilirubin,Total 0.7 mg/dl (0.2-1); Total Protein 6.7 gm/dl (6.4-8.2)
--- NOTE | 2019-12-10 12:37 | History & Physical Report ---
Date of Service December 10, 2019 Assessment & Plan (1) GI bleed: Pt is 74 y/o M with PMH chronic systolic CHF, ischemic cardiomyopathy EF: 30%, CAD s/p CABG in 2002, A-fib on Coumadin, DM II, H/O CVA, HTN, Aortic stenosis s/p TAVR with bioprosthetic valve in 2017, chronic respiratory failure on 2L O2 presented to ER with c/o 1-2 episodes melena x 3 days. Reports on 12/08/19 had episode of coffee ground emesis. No abdominal pain, dizziness, syncope, CP or increased SOB. Last Coumadin given on 12/07/2019. On Lovenox In ER pt afebrile, P: 101 down to 95, R: 17, BP: 111/76, 109/57, 98% on RA. No leukocytosis, H/H: 8.1/26.6 (Hgb: 10 on 12/08/2019), INR: 1.5, BUN: 47, CR: 1.3 -12/03/2019 EUS had multiple duodenal erosions -DDX: Duodenal ulcer, gastric ulcer, recent stent placement -In ER patient started on Protonix bolus and drip -Continue Protonix IV -N.p.o. -Gentle IVF -Hold Coumadin and aspirin -Monitor H&H and transfuse as needed -GI consult, Loretta SY aware. Plans for possible EGD tomorrow (2) MSSA bacteremia: Choledocholithiasis, cholangitis Recent admission to [facility] 11/26/19- 11/30/19 for cholelithiasis, cholangitis with choledocholithiasis, MSSA bacteremia. had echo that did not show any vegetation. [place] [facility]. 12/03/19 had EUS which showed evidence of multiple gallstones with purulence within the gallbladder consistent with cholecystitis and cholecystoduodenostomy ([id number] LAMS) was placed. EUS also remarkable for multiple duodenal erosions and esophageal biopsy was obtained (which showed evidence of chronic inflammation without dysplasia). ID had recommended continuing IV Zosyn until 12/12/19 LFTs have down trended. No abdominal pain. Denies recent fever or chills. -Continue Zosyn (3) Chronic systolic (congestive) heart failure: (4) Ischemic cardiomyopathy: EF: 30% CXR: Mild congestive failure. Bilateral pleural effusions -Hold torsemide, spironolactone at this time while n.p.o. -Monitor I&O's closely (5) Coronary artery disease: S/P CABG in 2002 No CP -Holding aspirin -Continue metoprolol (6) Atrial fibrillation: Chronic A-fib On Coumadin INR:1.5 -Hold Coumadin (7) Diabetes mellitus, type II: A1c: 7.4 on 11/26/2019 -Novolog correction sliding scale as NPO currently (8) Stroke: -Hold aspirin (9) Chronic respiratory failure with hypoxia: -Continue 2L oxygen via NC HS and as needed (10) Anxiety: -Continue buspirone (11) Aortic stenosis: S/P TAVR 2017 DVT Prophylaxis -SCDs Full Code as per discussion with pt Follows with Dr Puri for routine care Pt was seen and care coordinated with Dr Durham. See addendum History of Present Illness Chief Complaint: Melena Primary Care Provider: Barrera Puri MD Pt is 74 y/o M with PMH chronic systolic CHF, ischemic cardiomyopathy EF: 30%, CAD s/p CABG in 2002, A-fib on Coumadin, DM II, H/O CVA, HTN, Aortic stenosis s/p TAVR with bioprosthetic valve in 2016, chronic respiratory failure on 2L O2 presented to ER with c/o 1-2 episodes melena x 3 days. Reports on 12/08/19 had episode of coffee ground emesis. No further vomiting. Denies abdominal pain, dizziness, syncope, chest pain. Patient reports chronic shortness of breath with exertion and feels this is at baseline. [facility] Last Coumadin on 12/07/2019. Is on Lovenox. Patient states ate pancakes for breakfast today. Denies fever/chills, diaphoresis, LUCERO, vision changes, neck pain, orthopnea, palpitations, cough, sore throat, choking, otalgia, rhinorrhea, paresthesias, weakness, extremity weakness, extremity edema, rashes, urinary symptoms. Pt was recently admitted to [facility] 11/26/19 through 11/30/19 for cholelithiasis, cholangitis with choledocholithiasis, MSSA bacteremia. had echo that did not show any vegetation. [place] [facility] and discharged on 12/05/19. On 12/02, patient underwent EUS which showed evidence of multiple gallstones with purulence within the gallbladder consistent with cholecystitis and cholecystoduodenostomy ([id number] LAMS) was placed. EUS also remarkable for multiple duodenal erosions and esophageal biopsy was obtained (which showed evidence of chronic inflammation without dysplasia)." ID had recommended continuing IV Zosyn until 12/12/19 to treat MSSA bacteremia and cholecystitis. Patient was then discharged to [facility] on 12/05/19. Allergies Allergy/AdvReac Type Severity Reaction Status Date / Time lisinopril AdvReac Mild COUGH Verified 12/10/19 12:56 Home Medications Home Medications Medication Instructions Recorded Confirmed Type atorvastatin [Lipitor] 40 mg PO HS 04/05/19 12/10/19 History magnesium oxide 400 mg PO QAM 04/05/19 12/10/19 History nitroglycerin [Nitrostat] 0.4 mg SUBLINGUAL DIRECTED PRN 04/05/19 12/10/19 History polyethylene glycol 3350 [Miralax] 17 g PO QDL PRN 04/05/19 12/10/19 History tamsulosin [Flomax] 0.4 mg PO QAM 04/05/19 12/10/19 History zolpidem [Ambien] 5 mg PO HS 04/05/19 12/10/19 History gabapentin [Neurontin] 100 mg PO TID 05/29/19 12/10/19 History metoprolol succinate [Toprol XL] 25 mg PO QAM 05/29/19 12/10/19 History buspirone 10 mg PO TID 11/25/19 12/10/19 History aspirin 81 mg PO QAM 12/08/19 12/10/19 History docusate sodium [Colace] 100 mg PO BID 12/08/19 12/10/19 History enoxaparin [Lovenox] 40 mg SUBCUT DAILY@1900 12/08/19 12/10/19 History insulin regular human [Humulin R 1 sliding scale dose SUBCUT ACHS 12/08/19 12/10/19 History Regular U-100 Insuln] pantoprazole [Protonix] 40 mg PO BID 12/08/19 12/10/19 History piperacillin-tazobactam [Zosyn] 3.375 g IV Q8H 12/08/19 12/10/19 History spironolactone [Aldactone] 25 mg PO QAM 12/08/19 12/10/19 History torsemide 20 mg PO QDD 12/08/19 12/10/19 History torsemide 40 mg PO QAM 12/08/19 12/10/19 History warfarin [Coumadin] 0 mg PO UD 12/08/19 12/10/19 History acetaminophen [Tylenol] 325 mg PO Q4H PRN 12/10/19 12/10/19 History bisacodyl [Dulcolax (bisacodyl)] 10 mg [place] DAILY PRN 12/10/19 12/10/19 History dextrose 50 % in water (D50W) 50 ml IV UD PRN 12/10/19 12/10/19 History glucagon (human recombinant) 1 mg SUBCUT UD PRN 12/10/19 12/10/19 History ondansetron 4 mg PO Q6H PRN 12/10/19 12/10/19 History sennosides-docusate sodium 1 tab-cap PO QDL PRN 12/10/19 12/10/19 History [Senokot-S] sodium chloride 0.9 % (flush) 10 ml IV BID 12/10/19 12/10/19 History [Normal Saline Flush] sodium phosphates [Enema] 133 ml [place] DAILY PRN 12/10/19 12/10/19 History Past Med/Surg History Medical History (Updated 12/10/19 @ 13:19 by Precious Waller PA-C) Anxiety Aortic stenosis s/p TAVR with MV replacement 12/2016. Atrial fibrillation ON WARFARIN - FOLLOWS W/ DR. KOWALSKI Cardiac murmur Severe mitral annular calcification per 03/2019 echo. Limited echo, valves not well visualized. H/O MV repair and AVR. CHF (congestive heart failure) Cholecystitis, chronic Chronic respiratory failure with hypoxia Chronic systolic (congestive) heart failure Coronary artery disease s/p CABG 2002 Degenerative disc disease Diabetes mellitus, type II IDDM Diabetic neuropathy Diverticular disease Dyslipidemia GERD (gastroesophageal reflux disease) History of recent pneumonia HOSPITALIZED 03/2019 [facility] History of renal calculi Hypertension Ischemic cardiomyopathy EF 25-30%, pt refused ICD. On anticoagulant therapy SOB (shortness of breath) on exertion Spinal stenosis Stroke 2 YEARS AGO - WEAKNESS LEFT SIDE Transient ischemic attack (TIA) 2016 Surgical History Difficult airway Glidescope #4 atraumatic attempt x 1, 04/05/19 History of aortic valve replacement History of TAVR complicated by prosthetic fracture and then underwent open surgical aortic valve replacement, mitral valve repair in 2017 History of cardiac cath 2 YEARS AGO - [facility] SALINAS - NO STENTS/ANGIOPLASTY --> VALVE REPLACEMENT History of cardiac radiofrequency ablation For A flutter, 2005. History of cardioversion History of cataract surgery History of chest tube placement During admission 04/05 - 04/28 for empyema History of ERCP 04/09/19. Glidescope #4. History of mitral valve repair 01/22/2017 History of thoracentesis 04/10/19 Status post coronary artery bypass grafting 15 YEARS AGO - 3 VESSELS Family History Father Cirrhosis Social History Preferred Language: Vietnamese Communication Ability: Effective [employer] Worker Required: No Beliefs That Will Affect Care: None marital status: Current Living Situation: Shelter Other Information That Helps Us Care for You: No Feels Safe at Home: Yes Safety Concerns: Feels Safe At This Time Smoking Status: Never smoker Tobacco Type: smokeless tobacco ; Do You Dip or Chew Tobacco: No ; Second Hand Exposure: No ; Tobacco Cessation Education Requested by Patient: No Hx Alcohol Use: No Hx Substance Use: No Review of Systems Review of Systems: All systems reviewed & are unremarkable except as noted in HPI & below Physical Exam Physical Exam: General: no distress, WDWN Head: normocephalic, atraumatic Eyes: PERRL, EOM's intact, conjunctiva non-injected, anicteric ENT: normal inspection external ears, nose, mucous membranes moist Neck: supple, trachea midline Lungs: clear, no respiratory distress, no wheezing/rhonchi/rales CV: irregularly irregular, rate 94, no pretibial edema Abd: normal BS, +scattered ecchymosis (pt was receiving Lovenox injections), soft, non-tender Ext: no cyanosis, no calf tenderness Neuro: A&O x 3, no focal deficits noted, normal affect Skin: warm, dry Results & Data Vital Signs (Past 12 Hours) Vital Signs Temp Pulse Resp BP Pulse Ox 12/10/19 12:04 95 H 13 109/57 L 97 12/10/19 12:00 93 H 20 98 12/10/19 11:30 92 H 21 98 12/10/19 11:12 36.9 C 101 H 17 111/76 98 Laboratory Results Short CBC 12/10/19 Range/Units 11:55 WBC 9.32 (4.8-10.8) K/uL Hgb 8.1 L (14.0-18.0) g/dL Hct 26.6 L (42-52) % Plt Count 234 (130-400) K/uL BMP 12/10/19 11:55 Sodium 139 Potassium 4.0 Chloride 104 Carbon Dioxide 29 BUN 47 H Creatinine 1.39 Glucose 210 H Calcium 8.6 Liver Function 12/10/19 Range/Units 11:55 Total Bilirubin 0.7 (0.2-1) mg/dl Direct Bilirubin 0.2 (0-0.2) mg/dl AST 14 L (15-37) U/L ALT 15 (12-78) U/L Alkaline Phosphatase 122 H (45-117) U/L Albumin 2.2 L (3.4-5.0) gm/dl Diagnostic Findings CXR/ABD XRAY: IMPRESSION: 1. No evidence of bowel obstruction. No evidence of free air 2. Multiple biliary enteric stents are visualized 3. Mild congestive failure. Bilateral pleural effusions. Associated basilar airspace opacities. ECG Rate (beats per minute): 96 Rhythm: atrial fibrillation Findings: + RBBB Code Status & VTE Plan VTE Prophylaxis Plan VTE Prophylaxis will be ordered: Yes Supervising Physician Co-Signing Physician Notes Attending Addendum: care coordinated with JED Cardona please refer to her notes for full details, I agree with her notes patient seen and examined, records reviewed by myself as well on exam, patient seen sitting up in bed, with his at the bedside Patient is comfortable, not in distress No recurrence of melena while admitted No abdominal pain, nausea vomiting Denies chest pain, shortness of breath, palpitations, dizziness no other symptoms VS noted and reviewed oriented x3, not in distress, speaks in sentences with no effort nor accessory muscle use normal rate, regular rhythm, no murmurs clear breath sounds bilaterally non distended, soft, nontender no bipedal edema, erythema, warmth no neuro deficits Hemoglobin 8 Creatinine 1.3 ASSESSMENT AND PLAN Anemia likely second acute blood loss secondary to upper GI bleed Hemoglobin decreased to 7.6 today Order 1 unit of packed RBCs with Lasix after Repeat hemoglobin around 5 AM Continue Protonix drip, n.p.o. post midnight for EGD tomorrow, GI consult History of cardiomyopathy, EF 30% Monitor volume status closely other diagnoses and plan of care as per JED Lang S notes Taj Durham MD
[2019-12-10] MEDS: PANTOprazole 40 MG in DEXTROSE 5% 100 ML IV SCH ×3 (12:43→22:29)
--- NOTE | 2019-12-10 12:49 | XRay Report ---
XR abdomen 2V w PA chest CLINICAL HISTORY: Abdominal pain, gastrointestinal bleeding. COMPARISON STUDY: 12/08/2019 FINDINGS: There are postsurgical changes of midline sternotomy. The heart is mildly enlarged. There a re persistent bilateral pleural effusions. There are associated basilar airspace opacities, likely at electatic. There is mild pulmonary vascular congestion. Erect and supine views the abdomen reveal no abnormally dilated loops of large or small bowel. There are no transition zones to indicate bowel obs truction. There are extensive vascular calcifications present. Multiple biliary enteric stents are vi sualized. IMPRESSION: 1. No evidence of bowel obstruction. No evidence of free air 2. Multiple biliary enteric stents are visualized 3. Mild congestive failure. Bilateral pleural effusions. Associated basilar airspace opacities. ACT 112: Negative or not required by law. Electronically signed by: Travon Sim M.D. 12/10/2019 12:47 PM
[2019-12-10] MEDS ORDERED: GLUCOSE 40% GEL 15 GM TUBE PO PRN (14:33)
[2019-12-10] MEDS ORDERED: CARBOHYDRATES FOR HYPOGLYCEMIA PO PRN (14:33)
[2019-12-10] MEDS ORDERED: GLUCAGON FOR INJ 1 MG VIAL SQ PRN (14:33)
[2019-12-10] MEDS ORDERED: ONDANSETRON INJ 2 MG/ML 2 ML VIAL IV PRN (14:33)
[2019-12-10] MEDS ORDERED: SODIUM CHLORIDE 0.9% 250 ML IV PRN ×2 (14:33→20:10)
[2019-12-10] MEDS ORDERED: GLUCOSE 10 TABS/TUBE PO PRN (14:33)
[2019-12-10] MEDS ORDERED: NITROGLYCERIN SL 0.4 MG/TAB TAB SL PRN (14:33)
[2019-12-10] MEDS ORDERED: DEXTROSE 50% 50 ML SYRINGE IV PRN (14:33)
[2019-12-10] MEDS ORDERED: PIPERACILL/TAZOBAC CONSULT ACTIVE PRN (14:41)
[2019-12-10] MEDS: GABAPENTIN 100 MG CAP PO SCH ×2 (16:16→22:31)
[2019-12-10] MEDS: PIPERACILLIN/TAZOBACTAM 3.375 GM in DEXTROSE 5% 100 ML IV SCH ×2 (16:16→23:58)
[2019-12-10] MEDS ORDERED: Nursing to Pharmacy Communication ONE (16:22)
[2019-12-10] MEDS ORDERED: INSULIN ASPART 100 UNITS/ML 3 ML PEN SC SCH (16:30)
--- NOTE | 2019-12-10 17:04 | Electrocardiogram Report ---
Test Reason : Blood Pressure : / mmHG Vent. Rate : 096 BPM Atrial Rate : 104 BPM P-R Int : 000 ms QRS Dur : 162 ms QT Int : 412 ms P-R-T Axes : 000 269 043 degrees QTc Int : 520 ms Atrial fibrillation with premature ventricular or aberrantly conducted complexes Right bundle branch block Inferior infarct , age undetermined Abnormal ECG When compared with ECG of 08-DEC-2019 08:12, No significant change Confirmed by Kenny Mccallum ([id number]) on 12/10/2019 5:04:20 PM Referred By: Confirmed By:Kenny Mccallum
[2019-12-10] MEDS: INSULIN ASPART 100 UNITS/ML 3 ML PEN SC SCH (18:12)
[2019-12-10 19:02] LABS: Hematocrit (blood only) 24.4 % (42-52); Hemoglobin 7.6 g/dL (14.0-18.0)
[2019-12-10] MEDS ORDERED: FUROSEMIDE 20 MG in SYRINGE 0 ML IV SCH (20:30)
[2019-12-10] MEDS: ATORVASTATIN 40 MG TAB PO SCH (22:31)
[2019-12-10] MEDS: ZOLPIDEM TARTRATE 5 MG TAB PO SCH (23:59)
[2019-12-11] MEDS: INSULIN ASPART 100 UNITS/ML 3 ML PEN SC SCH ×5 (00:31→21:48)
[2019-12-11] MEDS: PANTOprazole 40 MG in DEXTROSE 5% 100 ML IV SCH ×3 (03:17→15:25)
[2019-12-11] MEDS: SODIUM CHLORIDE 0.9% 1000ML 1,000 ML IV SCH ×2 (03:18→15:25)
[2019-12-11 06:15] LABS: Hematocrit (blood only) 27.7 % (42-52); Hemoglobin 8.6 g/dL (14.0-18.0); Mean Corpuscular Hemoglobin 25.6 pg (25-34); Mean Corpuscular Volume 82.4 fL (80-100); Mean Platelet Volume 9.9 fL (7.4-10.4); Platelet Count 246 K/uL (130-400); RDW Coefficient of Variation 18.5 % (11.5-14.5); RDW Standard Deviation 55.4 fL (36.4-46.3); Red Blood Count 3.36 M/uL (4.7-6.1); White Blood Count 8.72 K/uL (4.8-10.8)
[2019-12-11 06:48] LABS: Albumin Level 2.1 gm/dl (3.4-5.0); BUN Creatinine Ratio 26.8 (10-20); Calcium 8.2 mg/dl (8.5-10.1); Creatinine Clr Calc Pharmacy 54.1 ml/min; Est GFR (Non-African American) 50.9; Potassium 3.8 mmol/L (3.5-5.1)
[2019-12-11 06:51] LABS: Albumin Globulin Ratio 0.5 (0.9-2); Bilirubin,Total 0.7 mg/dl (0.2-1); Globulin 4.2 gm/dl (2.5-4.0); Total Protein 6.3 gm/dl (6.4-8.2)
[2019-12-11] MEDS: PIPERACILLIN/TAZOBACTAM 3.375 GM in DEXTROSE 5% 100 ML IV SCH ×2 (08:19→15:25)
[2019-12-11 08:23] LABS: INR 1.4 (0.9-1.1); Prothrombin Time 14.6 Seconds (9.0-12.0)
[2019-12-11] MEDS: GABAPENTIN 100 MG CAP PO SCH ×3 (08:26→21:46)
[2019-12-11] MEDS: TAMSULOSIN HCL 0.4 MG CAP PO SCH (08:27)
[2019-12-11] MEDS: METOPROLOL SUCC 25MG EXT REL TAB PO SCH (08:29)
[2019-12-11] MEDS ORDERED: INDOMETHACIN 50 MG SUPP PR ONE (08:58)
--- NOTE | 2019-12-11 09:36 | Gastroenterology Progress Note ---
Date of Service December 11, 2019 Assessment & Plan (1) MSSA bacteremia: (2) Cholecystitis: (3) Cholelithiasis: (4) GI bleed: Pt is a 74 y/o male w hx of chronic cholecystitis, cholangitis who is a poor surgical candidate due to cardiac comorbidities, currently presenting w melena x 3 days and black coffee ground emesis 2 days ago. He is s/p biliary stents placements on 11/26, Axios stent placement on 12/02 [facility]. Found to have duodenal erosions on EGD on 12/02. He had been on Coumadin 5mg up till 12/06, Lovenox inj till yesterday evening. Had ASA 81mg this AM. Suspect bleeding from duodenal erosions vs from Axios stent placement. Overnight given 1U PRBC w appropriate response in blood ct. He did pass another dark stool in small amt this AM. Denies abd pain, n/v. - Monitor H/H and transfuse prn - Continue PPI gtt - Keep NPO; will plan for EGD eval + ERCP to remove biliary stents today by Dr. Dowell - Continue IV antibx for MSSA bacteremia Admission and Anticipated Discharge Date Admission Date: December 10, 2019 Supervising Physician Co-Signing Physician Notes I performed a history and physical examination of the patient today, including specifically on physical exam - soft abdomen. I have discussed the patient's management with the advanced practitioner. Please refer to the nurse practitioner's note for the documented findings and plan of care. Subjective Pt received 1U PRBC last night, Hgb up 7.6 -> 8.6 today. He had small dark stools this AM. Denies abd pain, n/v. Review of Systems Review of Systems: All systems reviewed & are unremarkable except as noted in HPI & below Physical Exam Constitutional: WD/WN, vitals as above well groomed, cooperative and comfortable Eyes: PERRL, conjunctivae normal, anicteric sclerae ENMT: external ear and nose normal, oropharynx normal Respiratory: normal respiratory effort, lungs clear to auscultation Cardiovascular: RRR, no murmur, no edema Gastrointestinal (Abdomen): normal bowel sounds, soft, nontender, no hepatos plenomegaly Skin: no rashes, warm and dry no jaundice Psychiatric: A+Ox3, euthymic affect Lymphatic: no lymphedema Results & Data ([facility]) Vital Signs (Past 12 Hours) Vital Signs Temp Pulse Pulse Resp BP BP Pulse Ox 12/11/19 07:38 36.9 C 88 19 91/57 L 99 12/11/19 05:54 36.9 C 88 20 79/61 L 96 12/11/19 03:40 37.1 C 83 18 102/65 100 12/11/19 00:00 82 12/10/19 23:40 36.6 C 95 H 16 97/45 L 12/10/19 23:15 36.6 C 93 H 16 85/61 L 100 12/10/19 22:15 36.7 C 97 H 14 111/34 L 96 12/10/19 21:45 36.7 C 92 H 16 93/52 L 96
--- NOTE | 2019-12-11 12:28 | History & Physical Bridge Note ---
Date of Service December 11, 2019 History & Physical Bridge Note I have examined the patient, reviewed the History & Physical and in the interval since the performance of the History & Physical I have noted the following changes of clinical significance: no changes noted EGD/ERCP
--- NOTE | 2019-12-11 12:47 | Anesthesiology Consultation ---
Date of Service December 11, 2019 Assessment & Plan Chart Review Chart Review: Acceptable Risk for Surgery Consults Requested none History Surgery Operation Date: 12/11/19 10:45 Proposed Procedures p Esophagogastroduodenoscopy - Demi Dowell MD s Endoscopic Retrograde Cholangiopancreato - Demi Dowell MD Height/Weight Height: 5 ft 10 in Weight: 91.1 kg Allergies Allergy/AdvReac Type Severity Reaction Status Date / Time lisinopril AdvReac Mild COUGH Verified 12/10/19 12:56 Medications Home Medications Medication Instructions Recorded Confirmed Last Taken atorvastatin [Lipitor] 40 mg PO HS 04/05/19 12/10/19 12/09/19 magnesium oxide 400 mg PO QAM 04/05/19 12/10/19 12/10/19 nitroglycerin [Nitrostat] 0.4 mg SUBLINGUAL DIRECTED PRN 04/05/19 12/10/19 Unknown polyethylene glycol 3350 [Miralax] 17 g PO QDL PRN 04/05/19 12/10/19 11/05/19 12:00 tamsulosin [Flomax] 0.4 mg PO QAM 04/05/19 12/10/19 12/10/19 zolpidem [Ambien] 5 mg PO HS 04/05/19 12/10/19 12/09/19 gabapentin [Neurontin] 100 mg PO TID 05/29/19 12/10/19 12/10/19 metoprolol succinate [Toprol XL] 25 mg PO QAM 05/29/19 12/10/19 12/10/19 buspirone 10 mg PO TID 11/25/19 12/10/19 12/10/19 aspirin 81 mg PO QAM 12/08/19 12/10/19 12/10/19 docusate sodium [Colace] 100 mg PO BID 12/08/19 12/10/19 12/10/19 enoxaparin [Lovenox] 40 mg SUBCUT DAILY@1900 12/08/19 12/10/19 12/09/19 insulin regular human [Humulin R 1 sliding scale dose SUBCUT ACHS 12/08/19 12/10/19 12/10/19 Regular U-100 Insuln] pantoprazole [Protonix] 40 mg PO BID 03/07/1912/10/19 12/10/19 piperacillin-tazobactam [Zosyn] 3.375 g IV Q8H 12/08/19 12/10/19 12/10/19 spironolactone [Aldactone] 25 mg PO QAM 12/08/19 12/10/19 12/10/19 torsemide 20 mg PO QDD 12/08/19 12/10/19 12/09/19 torsemide 40 mg PO QAM 12/08/19 12/10/19 12/10/19 warfarin [Coumadin] 0 mg PO UD 12/08/19 12/10/19 12/07/19 21:00 5 mg acetaminophen [Tylenol] 325 mg PO Q4H PRN 12/10/19 12/10/19 Unknown bisacodyl [Dulcolax (bisacodyl)] 10 mg [place] DAILY PRN 12/10/19 12/10/19 Unknown dextrose 50 % in water (D50W) 50 ml IV UD PRN 12/10/19 12/10/19 Unknown glucagon (human recombinant) 1 mg SUBCUT UD PRN 12/10/19 12/10/19 Unknown ondansetron 4 mg PO Q6H PRN 12/10/19 12/10/19 Unknown sennosides-docusate sodium 1 tab-cap PO QDL PRN 12/10/19 12/10/19 Unknown [Senokot-S] sodium chloride 0.9 % (flush) 10 ml IV BID 12/10/19 12/10/19 12/10/19 [Normal Saline Flush] sodium phosphates [Enema] 133 ml [place] DAILY PRN 12/10/19 12/10/19 Unknown Active Medications Generic Name Dose Route Start Last Admin Trade Name Freq PRN Reason Stop Dose Admin Atorvastatin Calcium 40 mg 12/10/19 21:00 12/10/19 22:31 Lipitor PO 01/09/20 20:59 40 mg HS ZAHRA Administration Buspirone HCl 10 mg 12/10/19 15:00 12/11/19 08:26 Buspar PO 01/09/20 14:59 10 mg TID ZAHRA Administration Gabapentin 100 mg 12/10/19 15:00 12/11/19 08:26 Neurontin PO 01/09/20 14:59 100 mg TID ZAHRA Administration Pantoprazole Sodium 40 mg/ 100 mls @ 20 mls/hr 12/10/19 12:15 12/11/19 08:17 Dextrose IV 01/09/20 12:14 8 mg/hr Q5H ZAHRA 20 mls/hr Administration 8 MG/HR Piperacillin Sod/Tazobactam 115 mls @ 28.75 mls/hr 12/10/19 16:00 12/11/19 12:24 Sod 3.375 gm/ Dextrose IV 12/12/19 23:59 Infused Q8H ZAHRA Infusion Protocol Sodium Chloride 1,000 mls @ 80 mls/hr 12/11/19 02:45 12/11/19 03:18 Nss 1000ml IV 01/10/20 02:44 80 mls/hr .[id number] ZAHRA Administration Insulin Aspart 0 units 12/10/19 18:00 12/11/19 11:35 Novolog Flexpen SC 01/09/20 17:59 1 units Q6 ZAHRA Administration Metoprolol Succinate 25 mg 12/11/19 09:00 12/11/19 08:29 Toprol Xl PO 01/10/20 08:59 Not Given QAM ZAHRA Tamsulosin HCl 0.4 mg 12/11/19 09:00 12/11/19 08:27 Flomax PO 01/10/20 08:59 0.4 mg QAM ZAHRA Administration Zolpidem Tartrate 5 mg 12/10/19 21:00 12/10/19 23:59 Ambien PO 01/09/20 20:59 Not Given HS ZAHRA NPO Date Last Intake of Fluids: 12/10/19 Time Last Intake of Fluids: 19:00 Last Intake of Fluids Comment: sips with morning meds Date Last Intake of Solids: 12/10/19 Time Last Intake of Solids: 19:00 Past Medical History Medical History Anxiety Aortic stenosis s/p TAVR with MV replacement 12/2016. Atrial fibrillation ON WARFARIN - FOLLOWS W/ DR. KOWALSKI Cardiac murmur Severe mitral annular calcification per 03/2019 echo. Limited echo, valves not well visualized. H/O MV repair and AVR. CHF (congestive heart failure) Cholecystitis, chronic Chronic respiratory failure with hypoxia Chronic systolic (congestive) heart failure Coronary artery disease s/p CABG 2003 Degenerative disc disease Diabetes mellitus, type II IDDM Diabetic neuropathy Diverticular disease Dyslipidemia GERD (gastroesophageal reflux disease) History of recent pneumonia HOSPITALIZED 03/2019 [facility] History of renal calculi Hypertension Ischemic cardiomyopathy EF 25-30%, pt refused ICD. On anticoagulant therapy SOB (shortness of breath) on exertion Spinal stenosis Stroke 2 YEARS AGO - WEAKNESS LEFT SIDE Transient ischemic attack (TIA) 2016 Exercise / Class Metabolic Activity II 4-5 Yardwork/Stairs/Walk up hill Past Family History Family History Father Cirrhosis Past Surgical History Surgical History Difficult airway Glidescope #4 atraumatic attempt x 1, 04/05/19 History of aortic valve replacement History of TAVR complicated by prosthetic fracture and then underwent open surgical aortic valve replacement, mitral valve repair in 2016 History of cardiac cath 2 YEARS AGO - [facility] SALINAS - NO STENTS/ANGIOPLASTY --> VALVE REPLACEMENT History of cardiac radiofrequency ablation For A flutter, 2005. History of cardioversion History of cataract surgery History of chest tube placement During admission 04/05 - 04/28 for empyema History of ERCP 04/09/19. Glidescope #4. History of mitral valve repair 01/22/2017 History of thoracentesis 04/10/19 Status post coronary artery bypass grafting 15 YEARS AGO - 3 VESSELS Past Anesthesia History No Hx of Anesthesia Complications and No Family Hx of Anesthesia Complications History of PONV No Hx of PONV and No Hx of Motion Sickness Social History Smoking Status: Never smoker tobacco type: smokeless tobacco Do You Dip or Chew Tobacco: No Hx Alcohol Use: No Alcohol type: beer alcohol intake frequency: holidays/special occasions only Hx Substance Use: No substance use type: does not use Physical Exam Vital Signs Last Vital Signs Temp 37.4 C 12/11/19 12:38 Pulse 88 12/11/19 12:38 Resp 20 12/11/19 12:38 BP 91/63 L 12/11/19 12:38 Pulse Ox 97 12/11/19 12:38 Testing Laboratory Results 12/11/19 05:47 12/11/19 05:47 PT 14.6 Seconds (9.0-12.0) H 12/11/19 08:04 INR 1.4 (0.9-1.1) H 12/11/19 08:04 APTT 28.6 Seconds (21.0-31.0) 12/10/19 11:55 Blood Type A Positive 12/10/19 11:55 Antibody Screen NEGATIVE 12/10/19 11:55 12/11/19 12/11/19 12/11/19 12:40 11:28 07:36 POC Glucose 186 H 181 H 180 H 12/11/19 06:22 POC Glucose 179 H
[2019-12-11] MEDS ORDERED: HYDROmorphone INJ 1 MG/ML SYRINGE IV PRN (12:48)
[2019-12-11] MEDS ORDERED: METOCLOPRAMIDE HCL INJ 5 MG/ML 2 ML VIAL IV PRN (12:48)
[2019-12-11] MEDS ORDERED: PROMETHAZINE HCL 12.5 MG in SODIUM CHLORIDE 0.9% 50 ML IV PRN (12:48)
[2019-12-11] MEDS ORDERED: ePHEDrine sulfate 50 MG/ML AMP IV PRN (12:48)
[2019-12-11] MEDS ORDERED: fentaNYL citrate 100 MCG/2 ML VIAL IV PRN (12:48)
[2019-12-11] MEDS ORDERED: ONDANSETRON INJ 2 MG/ML 2 ML VIAL IV PRN (12:48)
[2019-12-11] MEDS ORDERED: ATROPINE SULFATE 0.1 MG/ML 10ML SYR IV PRN (12:48)
[2019-12-11] MEDS ORDERED: ROCURONIUM BROMIDE 10 MG/ML 5 ML VIAL ONE (13:05)
[2019-12-11] MEDS ORDERED: LIDOCAINE HCL 2% 2 ML VIAL/AMP(20MG/ML) INFIL ONE (13:05)
[2019-12-11] MEDS ORDERED: SUCCINYLCHOLINE CHLORIDE 20 MG/ML 10 ML VIAL ONE (13:05)
[2019-12-11] MEDS ORDERED: PROPOFOL IV EMULSION 10 MG/ML 20 ML VIAL IV ONE (13:05)
[2019-12-11] MEDS ORDERED: fentaNYL citrate 100 MCG/2 ML VIAL ONE (13:05)
[2019-12-11] MEDS ORDERED: ONDANSETRON INJ 2 MG/ML 2 ML VIAL ONE (13:29)
[2019-12-11] MEDS ORDERED: PHENYLEPHRINE HCL 10 MG/ML VIAL ONE (13:29)
[2019-12-11] MEDS ORDERED: ePHEDrine sulfate 50 MG/ML AMP ONE (13:54)
--- NOTE | 2019-12-11 13:58 | Operative Report ---
Post Operative Report Pre & Post Diagnosis Operation Date: 12/11/19 10:45 Pre-Op Diagnosis: Gastrointestinal Bleed Post-Op Diagnosis: Gastrointestinal Bleed I identified the patient and participated in the time-out.: Yes Procedure Operation Date: 12/11/19 10:45 Actual Procedures p Esophagogastroduodenoscopy, Endoscopic Retrograde Cholangiopancreatogram, Stent Removal(Not Applicable) - Demi Dowell MD Surgeon Demi Dowell MD Music Instructor None Estimated Blood Loss 0 Findings See Below (CBD stent removed) Specimens None Description of Procedure ERCP I attest to the content of the Intraoperative Record and any orders documented therein. Any exceptions are noted below.
--- NOTE | 2019-12-11 14:10 | Fluoroscopy Report ---
INTRAOPERATIVE RADIOGRAPHS CLINICAL HISTORY: ERCP and stent removal. Fluoroscopy time: 37 seconds. FINDINGS: 4 spot fluoroscopic views of the right upper quadrant from an ERCP procedure are correlated with ERCP images dated 11/26/2019 and correlated with abdominal CT dated 04/18/2019. The initial image shows the endoscope projecting over the stomach with a catheter in the common bile duct. Contrast ad ministration shows mild intra and extrahepatic biliary ductal dilatation. A balloon sweep of the comm on duct is performed. The final image shows contrast within the duodenum. IMPRESSION: Intraoperative ERCP images as above. See operative report for detailed findings. Electronically signed by: Kolton Rahman M.D. 12/11/2019 2:08 PM
--- NOTE | 2019-12-11 14:18 | Anesthesiology Progress Note ---
Date of Service December 11, 2019 Anesthesia Post Procedure Vital Signs Vital Signs: Temp Pulse Pulse Resp BP BP Pulse Ox 12/11/19 12:38 37.4 C 88 20 91/63 L 97 12/11/19 12:11 37.0 C 96 H 20 114/40 L 99 12/11/19 08:20 82 12/11/19 07:38 36.9 C 88 19 91/57 L 99 12/11/19 05:54 36.9 C 88 20 79/61 L 96 12/11/19 03:40 37.1 C 83 18 102/65 100 12/11/19 00:00 82 12/10/19 23:40 36.6 C 95 H 16 97/45 L 12/10/19 23:15 36.6 C 93 H 16 85/61 L 100 12/10/19 22:15 36.7 C 97 H 14 111/34 L 96 12/10/19 21:45 36.7 C 92 H 16 93/52 L 96 12/10/19 21:26 36.7 C 92 H 18 90/69 L 97 12/10/19 20:16 36.8 C 89 17 103/35 L 98 12/10/19 14:33 36.6 C 96 H 20 121/61 96 Transfer of Care Handoff Completed per policy Notes Mental Status: alert / awake / arousable and participated in evaluation Patient Amnestic to Procedure: Yes Nausea / Vomiting: adequately controlled Pain: adequately controlled Airway Patency, RR, SpO2: stable & adequate BP & HR: stable & adequate Hydration State: stable & adequate Anesthetic Complications: no major complications apparent
--- NOTE | 2019-12-11 15:41 | GI REPORT ---
Patient Name: Domenico Bustillo Procedure Date: 12/11/2019 12:35 PM Date of : 1945 Admit Type: Inpatient Age: 74 Gender: Male Attending MD: Demi Dowell MD Procedure: ERCP Providers: Demi Dowell MD Referring MD: Royce Vargas DO Indications: Follow-up of bile duct stone(s), Biliary stent removal Medicines: General Anesthesia Complications: No immediate complications. Estimated Blood Loss: Estimated blood loss: none. Procedure: Pre-Anesthesia Assessment: - Prior to the procedure, a History and Physical was performed, and patient medications, allergies and sensitivities were reviewed. The patient's tolerance of previous anesthesia was reviewed. - The risks and benefits of the procedure and the sedation options and risks were discussed with the patient. All questions were answered and informed consent was obtained. - Patient identification and proposed procedure were verified prior to the procedure by the physician and the nurse. The procedure was verified in the procedure room. - Pre-procedure physical examination revealed no contraindications to sedation. After obtaining informed consent, the scope was passed under direct vision. Throughout the procedure, the patient's blood pressure, pulse, and oxygen saturations were monitored continuously. The SCOPE was introduced through the mouth, and advanced to the duodenum and used to inject contrast into the bile duct. The ERCP was accomplished without difficulty. The patient tolerated the procedure well. Findings: Two biliary stents were visible on the applique sewer film. A applique sewer film of the abdomen was obtained. One enteric Axios stent in the right upper quadrant was seen. The double pigtail stent had migrated out of the Axios stent. The esophagus was successfully intubated under direct vision. The scope was advanced to a normal major papilla in the descending duodenum without detailed examination of the pharynx, larynx and associated structures, and upper GI tract. The upper GI tract was grossly normal. A biliary sphincterotomy had been performed. The sphincterotomy appeared open. Two plastic biliary stents originating in the common bile duct were emerging from the major papilla. Two stents were removed from the common bile duct using a snare. The migrated double pigtail stent was removed. A 0.035 inch straight standard wire was passed into the biliary tree. The 8.5 mm balloon was passed over the guidewire and the bile duct was then deeply cannulated. Contrast was injected. I personally interpreted the bile duct images. Ductal flow of contrast was adequate. Image quality was adequate. Contrast extended to the main bile duct. The main bile duct was moderately dilated. The largest diameter was 9 mm. The biliary tree was swept with an 11.5 mm balloon and 15 mm balloon starting at the bifurcation. Nothing was found. Occlusion cholangiogram showed no filling defects. PD was not cannulated. Impression: - Two stents were removed from the common bile duct. - The biliary tree was swept and nothing was found. Recommendation: - Return patient to [facility] for [facility] care. Demi Dowell MD 12/11/2019 3:41:26 PM This report has been signed electronically. Note Initiated On: 12/11/2019 12:35 PM Number of Addenda: 0 I attest to the content of the Intraoperative Record and orders documented therein, exceptions below {[id number]}
[2019-12-11] MEDS ORDERED: Nursing to Pharmacy Communication ONE (15:47)
--- NOTE | 2019-12-11 18:01 | Hospitalist Progress Note ---
Date of Service December 11, 2019 Assessment & Plan (1) GI bleed: Per admitting PA notes: Pt is 74 y/o M with PMH chronic systolic CHF, ischemic cardiomyopathy EF: 30%, CAD s/p CABG in 2002, A-fib on Coumadin, DM II, H/O CVA, HTN, Aortic stenosis s/p TAVR with bioprosthetic valve in 2017, chronic respiratory failure on 2L O2 presented to ER with c/o 1-2 episodes melena x 3 days. Reports on 12/08/19 had episode of coffee ground emesis. No abdominal pain, dizziness, syncope, CP or increased SOB. Last Coumadin given on 12/07/2019. On Lovenox 12/11/2019 Status post ERCP, with biliary stent removal No signs of bleeding on ERCP Hemoglobin up to 8.6 after 1 unit of packed RBC Hold off on Coumadin aspirin today Evaluate tomorrow Advance diet as tolerated tomorrow (2) MSSA bacteremia: Per admitting PA notes: Choledocholithiasis, cholangitis Recent admission to [facility] 11/26/19- 11/30/19 for cholelithiasis, cholangitis with choledocholithiasis, MSSA bacteremia. had echo that did not show any vegetation. Was transferred to [facility] [place]19 - 12/05/19. 12/03/19 had EUS which showed evidence of multiple gallstones with purulence within the gallbladder consistent with cholecystitis and cholecystoduodenostomy ([id number] LAMS) was placed. EUS also remarkable for multiple duodenal erosions and esophageal biopsy was obtained (which showed evidence of chronic inflammation without dysplasia). ID had recommended continuing IV Zosyn until 12/12/19 LFTs have down trended. No abdominal pain. Denies recent fever or chills. -Continue Zosyn (3) Chronic systolic (congestive) heart failure: EF: 30% CXR: Mild congestive failure. Bilateral pleural effusions -DC IV fluids -Most likely to resume torsemide, spironolactone tomorrow (4) Ischemic cardiomyopathy: EF: 30% CXR: Mild congestive failure. Bilateral pleural effusions -torsemide, spironolactone tomorrow (5) Coronary artery disease: S/P CABG in 2002 No CP -Holding aspirin -Continue metoprolol (6) Atrial fibrillation: Chronic A-fib On Coumadin INR:1.5 -Hold Coumadin for now until okay with GI (7) Diabetes mellitus, type II: A1c: 7.4 on 11/26/2019 -Novolog correction sliding scale as NPO currently (8) Stroke: -Hold aspirin (9) Chronic respiratory failure with hypoxia: -Continue 2L oxygen via NC HS and as needed (10) Anxiety: -Continue buspirone (11) Aortic stenosis: S/P TAVR 2016 DVT Prophylaxis -SCDs Full Code as per discussion with pt Follows with Dr Puri for routine care (12) CKD (chronic kidney disease): Chronic kidney disease, stage II-III Stable Admission and Anticipated Discharge Date Admission Date: December 10, 2019 Subjective Follow-up for GI bleed Status post ERCP today with stent removal No recurrence of melena Patient seen sitting up in bed, in good spirits, comfortable Denies chest pain, shortness of breath, palpitations, dizziness No abdominal pain, or nausea vomiting Tolerating clear liquid diet Denies other symptoms Review of Systems Review of Systems: All systems reviewed & are unremarkable except as noted in HPI & below Physical Exam Physical Exam: General- oriented x 3, not in distress, speaks in sentences with no effort or accessory muscle use Eyes- anicteric Neck- no JVD Lungs-rales at the left base, clear on the right, no wheezing Heart- normal rate, regular rhythm; no murmurs Abdomen- normal bowel sounds, nondistended, soft, nontender Extremities- no pretibial edema, no calf tenderness Neuro- alert, oriented x 3; no gross focal neurologic deficits Skin- warm & dry Results & Data ([facility]) Vital Signs (Past 12 Hours) Vital Signs Temp Pulse Pulse Pulse Resp BP BP 12/11/19 16:05 36.5 C 88 18 108/44 L 12/11/19 15:31 89 18 122/42 L 12/11/19 15:15 37.1 C 88 18 99/41 L 12/11/19 15:00 89 16 102/53 L 12/11/19 14:50 86 16 93/53 L 12/11/19 14:40 36.4 C L 89 15 88/56 L 12/11/19 14:30 84 15 95/71 L 12/11/19 14:20 90 14 100/71 12/11/19 14:11 36.0 C L 95 H 14 88/54 L 12/11/19 12:38 37.4 C 88 20 91/63 L 12/11/19 12:11 37.0 C 96 H 20 114/40 L 12/11/19 08:20 82 12/11/19 07:38 36.9 C 88 19 91/57 L Pulse Ox 12/11/19 16:05 98 12/11/19 15:31 96 12/11/19 15:15 93 12/11/19 15:00 98 12/11/19 14:50 96 12/11/19 14:40 98 12/11/19 14:30 100 12/11/19 14:20 100 12/11/19 14:11 94 12/11/19 12:38 97 12/11/19 12:11 99 12/11/19 08:20 12/11/19 07:38 99 Laboratory Results Laboratory Results - last 24 hr 12/10/19 12/11/19 12/11/19 11:55 00:29 05:47 WBC 8.72 RBC 3.36 L Hgb 8.6 L Hct 27.7 L MCV 82.4 MCH 25.6 MCHC 31.0 L RDW Std Deviation 55.4 H RDW Coeff of Abi 18.5 H Plt Count 246 MPV 9.9 PT INR Sodium Potassium Chloride Carbon Dioxide Anion Gap BUN Creatinine Est Cr Clr Drug Dosing Est GFR ( Amer) Est GFR (Non-Af Amer) BUN/Creatinine Ratio Glucose POC Glucose 176 H Calcium Magnesium Total Bilirubin AST ALT Alkaline Phosphatase Total Protein Albumin Globulin Albumin/Globulin Ratio Blood Type A Positive Antibody Screen NEGATIVE Crossmatch See Detail 12/11/19 12/11/19 12/11/19 05:47 06:22 07:36 WBC RBC Hgb Hct MCV MCH MCHC RDW Std Deviation RDW Coeff of Abi Plt Count MPV PT INR Sodium 138 Potassium 3.8 Chloride 106 Carbon Dioxide 27 Anion Gap 5.0 BUN 36 H Creatinine 1.36 Est Cr Clr Drug Dosing 54.1 Est GFR ( Amer) 59.0 Est GFR (Non-Af Amer) 50.9 BUN/Creatinine Ratio 26.8 H Glucose 158 H POC Glucose 179 H 180 H Calcium 8.2 L Magnesium 2.0 Total Bilirubin 0.7 AST 14 L ALT 15 Alkaline Phosphatase 115 Total Protein 6.3 L Albumin 2.1 L Globulin 4.2 H Albumin/Globulin Ratio 0.5 L Blood Type Antibody Screen Crossmatch 12/11/19 12/11/19 12/11/19 08:04 11:28 12:40 WBC RBC Hgb Hct MCV MCH MCHC RDW Std Deviation RDW Coeff of Abi Plt Count MPV PT 14.6 H INR 1.4 H Sodium Potassium Chloride Carbon Dioxide Anion Gap BUN Creatinine Est Cr Clr Drug Dosing Est GFR ( Amer) Est GFR (Non-Af Amer) BUN/Creatinine Ratio Glucose POC Glucose 181 H 186 H Calcium Magnesium Total Bilirubin AST ALT Alkaline Phosphatase Total Protein Albumin Globulin Albumin/Globulin Ratio Blood Type Antibody Screen Crossmatch 12/11/19 12/11/19 16:04 20:07 WBC RBC Hgb Hct MCV MCH MCHC RDW Std Deviation RDW Coeff of Abi Plt Count MPV PT INR Sodium Potassium Chloride Carbon Dioxide Anion Gap BUN Creatinine Est Cr Clr Drug Dosing Est GFR ( Amer) Est GFR (Non-Af Amer) BUN/Creatinine Ratio Glucose POC Glucose 155 H 275 H Calcium Magnesium Total Bilirubin AST ALT Alkaline Phosphatase Total Protein Albumin Globulin Albumin/Globulin Ratio Blood Type Antibody Screen Crossmatch
--- NOTE | 2019-12-11 20:14 | GI REPORT ---
Patient Name: Domenico Bustillo Procedure Date: 12/11/2019 12:33 PM Date of : 1945 Admit Type: Inpatient Age: 74 Gender: Male Attending MD: Demi Dowell MD Procedure: Upper GI endoscopy Providers: Demi Dowell MD Referring MD: Barrera Vargas Indications: Coffee-ground emesis, Melena Medicines: General Anesthesia Complications: No immediate complications. Estimated Blood Loss: Estimated blood loss: none. Procedure: Pre-Anesthesia Assessment: - Prior to the procedure, a History and Physical was performed, and patient medications, allergies and sensitivities were reviewed. The patient's tolerance of previous anesthesia was reviewed. - The risks and benefits of the procedure and the sedation options and risks were discussed with the patient. All questions were answered and informed consent was obtained. - Patient identification and proposed procedure were verified prior to the procedure by the physician and the nurse. The procedure was verified in the procedure room. - Pre-procedure physical examination revealed no contraindications to sedation. After obtaining informed consent, the endoscope was passed under direct vision. Throughout the procedure, the patient's blood pressure, pulse, and oxygen saturations were monitored continuously. The Endoscope was introduced through the mouth, and advanced to the second part of duodenum. The upper GI endoscopy was accomplished without difficulty. The patient tolerated the procedure well. Findings: The examined esophagus was normal. The entire examined stomach was normal. A previously placed cholecystoduodenostomy Axios metal stent was seen in the duodenal bulb. The lumen was intubated and the gallbladder was examined, there was food material which was removed. The gallbladder wall had a medium sized clean based ulcer with no active bleeding or stigmata of recent bleed. There was an adherent yellow colored round material to the ulcer base. The previously placed double pigtail stent in the Axios lumen was migrated out and seen in D2/D3 area. Two previously placed plastic biliary stents were seen at the major papilla. Impression: - Normal esophagus. - Normal stomach. - Patent cholecystoduodenostomy Axios metal stent in the duodenal bulb with clean based ulceration of the gallbladder wall. No active bleeding. This could be from friction over the Axios stent. - Plastic biliary stents in the duodenum. Recommendation: - Perform an ERCP today. - If bleeding recurs, would consider bleeding scan and IR evaluation and would contact Advanced endoscopy team at [facility] [place]. - PO PPI BID dose for 2 months. Demi Dowell MD 12/11/2019 8:14:11 PM This report has been signed electronically. Note Initiated On: 12/11/2019 12:33 PM Number of Addenda: 0 I attest to the content of the Intraoperative Record and orders documented therein, exceptions below {[id number]}
[2019-12-11] MEDS: ACETAMINOPHEN 325 MG TAB PO PRN (21:45)
[2019-12-11] MEDS: PANTOprazole 40 MG TAB PO SCH (21:46)
[2019-12-11] MEDS: ATORVASTATIN 40 MG TAB PO SCH (21:47)
[2019-12-12] MEDS: ZOLPIDEM TARTRATE 5 MG TAB PO SCH ×2 (00:35→22:49)
[2019-12-12] MEDS: PIPERACILLIN/TAZOBACTAM 3.375 GM in DEXTROSE 5% 100 ML IV SCH ×3 (00:35→16:46)
[2019-12-12 07:27] LABS: Basophils # (auto) 0.07 K/uL (0-0.2); Basophils % (auto) 0.8 %; Eosinophils # (auto) 0.31 K/uL (0-0.5); Eosinophils % (auto) 3.7 %; Hemoglobin 9.2 g/dL (14.0-18.0); Immature Granulocytes # (auto) 0.02 K/uL (0.00-0.02); Immature Granulocytes % (auto) 0.2 %; Lymphocytes % (auto) 5.9 %; Mean Corpuscular Hemoglobin 25.6 pg (25-34); Mean Corpuscular Hgb Conc 30.7 g/dL (32-36); Mean Corpuscular Volume 83.6 fL (80-100); Mean Platelet Volume 10.1 fL (7.4-10.4); Monocytes # (auto) 0.72 K/uL (0.11-0.59); Monocytes % (auto) 8.5 %; Neutrophils # (auto) 6.81 K/uL (1.4-6.5); Neutrophils % (auto) 80.9 %; Platelet Count 266 K/uL (130-400); RDW Coefficient of Variation 19.2 % (11.5-14.5); RDW Standard Deviation 57.7 fL (36.4-46.3); Red Blood Count 3.59 M/uL (4.7-6.1); White Blood Count 8.43 K/uL (4.8-10.8)
[2019-12-12 07:34] LABS: INR 1.4 (0.9-1.1); Prothrombin Time 14.7 Seconds (9.0-12.0)
[2019-12-12 07:55] LABS: Potassium 3.6 mmol/L (3.5-5.1)
[2019-12-12 07:56] LABS: BUN Creatinine Ratio 19.7 (10-20); Calcium 8.3 mg/dl (8.5-10.1); Creatinine Clr Calc Pharmacy 50.7 ml/min; Est GFR (African American) 54.6; Est GFR (Non-African American) 47.1
[2019-12-12] MEDS: INSULIN ASPART 100 UNITS/ML 3 ML PEN SC SCH ×4 (08:16→21:25)
[2019-12-12] MEDS: METOPROLOL SUCC 25MG EXT REL TAB PO SCH (08:57)
[2019-12-12] MEDS: GABAPENTIN 100 MG CAP PO SCH ×3 (08:57→21:24)
[2019-12-12] MEDS: PANTOprazole 40 MG TAB PO SCH ×2 (08:58→21:24)
[2019-12-12] MEDS: TAMSULOSIN HCL 0.4 MG CAP PO SCH (08:58)
--- NOTE | 2019-12-12 13:45 | Gastroenterology Progress Note ---
Date of Service December 12, 2019 Assessment & Plan (1) Peptic ulcer disease: EGD showed clean based ulcer (2) Cholelithiasis with biliary obstruction: s/p ERCP 12/10 Recs: 1.advance diet 2.PPI daily 3.ok from a GI perspective to d/c home, can follow up with [facility] Dr. Dowell as outpatient Lucho Squires MD Gastroenterology Admission and Anticipated Discharge Date Admission Date: December 10, 2019 Subjective s/p EGD and ERCP yesterday. feels well today, denies any significant pain, n/v, nor other symptoms, tolerating liquid diet. Hgb improved. Review of Systems Constitutional: no fever and no chills Respiratory: no cough, no dyspnea and no dyspnea on exertion Cardiovascular: no chest pain and no dyspnea Gastrointestinal: as per Subjective / HPI Psychiatric: no depression and no anxiety Physical Exam Constitutional: WD/WN, vitals as above Respiratory: normal respiratory effort, lungs clear to auscultation Cardiovascular: RRR, no murmur, no edema Gastrointestinal (Abdomen): normal bowel sounds, soft, nontender, no hepatosplenomegaly Musculoskeletal: no lower extremity edema Psychiatric: A+Ox3, euthymic affect Results & Data Results & Data ([facility]) Vital Signs (Past 12 Hours) Vital Signs Temp Pulse Pulse Resp BP BP Pulse Ox 12/12/19 11:02 36.6 C 88 18 107/64 100 12/12/19 08:13 36.4 C L 92 H 18 104/51 L 100 12/12/19 07:20 88 12/12/19 04:00 36.5 C 72 20 96/30 L 98 PG Care Time/CCT Total # of Minutes Spent Total Time Spent with Patient: Total time spent is greater than 50% in coordination of care (as documented) at patient's floor/unit and/or counseling patient: Coding Level of Care Code 28587 Subseq Hosp Care Lvl 3 Diagnoses Peptic ulcer disease K27.9 Cholelithiasis with biliary obstruction K80.21
--- NOTE | 2019-12-12 14:39 | Hospitalist Progress Note ---
Date of Service delayed entry date of service noted below December 12, 2019 Assessment & Plan (1) GI bleed: Per admitting PA notes: Pt is 74 y/o M with PMH chronic systolic CHF, ischemic cardiomyopathy EF: 30%, CAD s/p CABG in 2002, A-fib on Coumadin, DM II, H/O CVA, HTN, Aortic stenosis s/p TAVR with bioprosthetic valve in 2017, chronic respiratory failure on 2L O2 presented to ER with c/o 1-2 episodes melena x 3 days. Reports on 12/08/19 had episode of coffee ground emesis. No abdominal pain, dizziness, syncope, CP or increased SOB. Last Coumadin given on 12/07/2019. On Lovenox 12/12/2019 Status EGD: clean based ulceration of the gallbladder wall, no active bleeding Status post ERCP, with biliary stent removal No signs of bleeding on ERCP Hemoglobin up to 9.2 from 7.6 after 1 unit of packed RBC resume coumadin ASA tomorrow (2) MSSA bacteremia: Per admitting PA notes: Choledocholithiasis, cholangitis Recent admission to [facility] 11/26/19- 11/30/19 for cholelithiasis, cholangitis with choledocholithiasis, MSSA bacteremia. had echo that did not show any vegetation. Was transferred to [facility] [place] on 11/30/19 - 12/05/19. 12/03/19 had EUS which showed evidence of multiple gallstones with purulence within the gallbladder consistent with cholecystitis and cholecystoduodenostomy ([id number] LAMS) was placed. EUS also remarkable for multiple duodenal erosions and esophageal biopsy was obtained (which showed evidence of chronic inflammation without dysplasia). ID had recommended continuing IV Zosyn until 12/12/19 LFTs have down trended. No abdominal pain. Denies recent fever or chills. -completed Zosyn 12/12/19 (3) Chronic systolic (congestive) heart failure: EF: 30% CXR: Mild congestive failure. Bilateral pleural effusions -DC IV fluids -Most likely to resume torsemide, spironolactone tomorrow (4) Ischemic cardiomyopathy: EF: 30% CXR: Mild congestive failure. Bilateral pleural effusions -torsemide, spironolactone tomorrow (5) Coronary artery disease: S/P CABG in 2002 No CP - aspirin tomorrow -Continue metoprolol (6) Atrial fibrillation: Chronic A-fib On Coumadin INR:1.4 -resume Coumadin 3mg po daily (7) Diabetes mellitus, type II: A1c: 7.4 on 11/26/2019 -Novolog correction sliding scale as NPO currently (8) Stroke: -aspirin tomorrow (9) Chronic respiratory failure with hypoxia: -Continue 2L oxygen via NC HS and as needed (10) Anxiety: -Continue buspirone (11) Aortic stenosis: S/P TAVR 2016 DVT Prophylaxis -coumadin Full Code as per discussion with pt Follows with Dr Puri for routine care (12) CKD (chronic kidney disease): Chronic kidney disease, stage II-III Stable Admission and Anticipated Discharge Date Admission Date: December 10, 2019 Subjective ff up for GI bleed seen resting in bed, comfortable, in good spirits states he feels improved overall no recurrence of melena, no hematochezia, abdominal pain, nausea/vomiting no chest pain, dyspnea, palpitations, dizziness no other symptoms Review of Systems Review of Systems: All systems reviewed & are unremarkable except as noted in HPI & below Physical Exam Physical Exam: General- oriented x 3, not in distress, speaks in sentences with no effort or accessory muscle use Eyes- anicteric Neck- no JVD Lungs- clear BS BL, no rales/wheezing Heart- normal rate, regular rhythm; no murmurs Abdomen- normal bowel sounds, nondistended, soft, nontender Extremities- trace pretibial edema, no calf tenderness Neuro- alert, oriented x 3; no gross focal neurologic deficits Skin- warm & dry Results & Data ([facility]) Vital Signs (Past 12 Hours) Vital Signs Temp Pulse Pulse Resp BP BP Pulse Ox 12/12/19 11:02 36.6 C 88 18 107/64 100 12/12/19 08:13 36.4 C L 92 H 18 104/51 L 100 12/12/19 07:20 88 12/12/19 04:00 36.5 C 72 20 96/30 L 98 Laboratory Results all noted and reviewed
[2019-12-12] MEDS ORDERED: WARFARIN SOD 3 MG TAB PO SCH (16:00)
[2019-12-12] MEDS: ATORVASTATIN 40 MG TAB PO SCH (21:24)
[2019-12-12] MEDS: ACETAMINOPHEN 325 MG TAB PO PRN (23:07)
[2019-12-13 07:31] LABS: Basophils # (auto) 0.08 K/uL (0-0.2); Basophils % (auto) 0.9 %; Eosinophils # (auto) 0.27 K/uL (0-0.5); Eosinophils % (auto) 2.9 %; Hematocrit (blood only) 28.8 % (42-52); Immature Granulocytes # (auto) 0.04 K/uL (0.00-0.02); Immature Granulocytes % (auto) 0.4 %; Lymphocytes # (auto) 0.59 K/uL (1.2-3.4); Lymphocytes % (auto) 6.3 %; Mean Corpuscular Hemoglobin 25.9 pg (25-34); Mean Corpuscular Hgb Conc 31.3 g/dL (32-36); Mean Platelet Volume 9.9 fL (7.4-10.4); Monocytes # (auto) 0.61 K/uL (0.11-0.59); Monocytes % (auto) 6.5 %; Neutrophils # (auto) 7.77 K/uL (1.4-6.5); Platelet Count 266 K/uL (130-400); RDW Coefficient of Variation 19.1 % (11.5-14.5); RDW Standard Deviation 57.4 fL (36.4-46.3); Red Blood Count 3.47 M/uL (4.7-6.1); White Blood Count 9.36 K/uL (4.8-10.8)
[2019-12-13 07:48] LABS: INR 1.4 (0.9-1.1); Prothrombin Time 14.4 Seconds (9.0-12.0)
[2019-12-13] MEDS: INSULIN ASPART 100 UNITS/ML 3 ML PEN SC SCH ×2 (08:17→12:30)
[2019-12-13] MEDS: TAMSULOSIN HCL 0.4 MG CAP PO SCH (08:18)
[2019-12-13] MEDS: PANTOprazole 40 MG TAB PO SCH (08:18)
[2019-12-13] MEDS: GABAPENTIN 100 MG CAP PO SCH (08:18)
[2019-12-13 08:22] LABS: BUN Creatinine Ratio 19.8 (10-20); Calcium 8.3 mg/dl (8.5-10.1); Est GFR (African American) 60.6; Est GFR (Non-African American) 52.3; Potassium 3.7 mmol/L (3.5-5.1)
[2019-12-13] MEDS: METOPROLOL SUCC 25MG EXT REL TAB PO SCH (08:49)
[2019-12-13] MEDS ORDERED: ASPIRIN 81 MG ECTAB PO SCH (09:00)
--- NOTE | 2019-12-13 10:56 | Hospitalist Progress Note ---
Date of Service December 13, 2019 Assessment & Plan (1) GI bleed: Per admitting PA notes: Pt is 74 y/o M with PMH chronic systolic CHF, ischemic cardiomyopathy EF: 30%, CAD s/p CABG in 2002, A-fib on Coumadin, DM II, H/O CVA, HTN, Aortic stenosis s/p TAVR with bioprosthetic valve in 2017, chronic respiratory failure on 2L O2 presented to ER with c/o 1-2 episodes melena x 3 days. Reports on 12/08/19 had episode of coffee ground emesis. No abdominal pain, dizziness, syncope, CP or increased SOB. Last Coumadin given on 12/07/2019. On Lovenox Status EGD: clean based ulceration of the gallbladder wall, no active bleeding Status post ERCP, with biliary stent removal No signs of bleeding on ERCP Hemoglobin up to 9 from 7.6 after 1 unit of packed RBC ok to resume coumadin, asa as per GI Protonix 40mg bid repeat CBC on ff up with PCP this week ff up with GI in 2 weeks (2) MSSA bacteremia: Per admitting PA notes: Choledocholithiasis, cholangitis Recent admission to [facility] 11/26/19- 11/30/19 for cholelithiasis, cholangitis with choledocholithiasis, MSSA bacteremia. had echo that did not show any vegetation. Was transferred to [facility] on 11/30/19 - 12/05/19. 12/03/19 had EUS which showed evidence of multiple gallstones with purulence within the gallbladder consistent with cholecystitis and cholecystoduodenostomy ([id number] LAMS) was placed. EUS also remarkable for multiple duodenal erosions and esophageal biopsy was obtained (which showed evidence of chronic inflammation without dysplasia). ID had recommended continuing IV Zosyn until 12/12/19 LFTs have down trended. No abdominal pain. Denies recent fever or chills. -completed course of Zosyn IV 12/12/19 (3) Chronic systolic (congestive) heart failure: EF: 30% CXR: Mild congestive failure. Bilateral pleural effusions resume torsemide, spironolactone (4) Ischemic cardiomyopathy: EF: 30% CXR: Mild congestive failure. Bilateral pleural effusions -torsemide, spironolactone resumed (5) Coronary artery disease: S/P CABG in 2002 No CP - resume aspirin, metoprolol (6) Atrial fibrillation: Chronic A-fib On Coumadin INR:1.4 -resume Coumadin 5mg po daily needs to ff up with Coumadin Clinic this week, will notify them (7) Diabetes mellitus, type II: A1c: 7.4 on 11/26/2019 -continue usual regimen -ff up with PCP (8) Stroke: -resume ASA (9) Chronic respiratory failure with hypoxia: -Continue 2L oxygen via NC HS and as needed (10) Anxiety: -Continue buspirone (11) Aortic stenosis: S/P TAVR 2016 (12) CKD (chronic kidney disease): Chronic kidney disease, stage II-III Stable DVT Prophylaxis -coumadin Full Code as per discussion with pt Follows with Dr Puri for routine care Disposition d/c home ff up with PCP this week ff up with GI Dr. Dowell in 2 weeks ff up with [employer] Apprentice as scheduled Admission and Anticipated Discharge Date Admission Date: December 10, 2019 Subjective ff up for gi bleed seen resting in bedside chair, comfortable states he feels better overall no recurrence of melena, hematochezia no chest pain, dyspnea, palpitations, dizziness no other symptoms Review of Systems Review of Systems: All systems reviewed & are unremarkable except as noted in HPI & below Physical Exam Physical Exam: General- oriented x 3, not in distress, speaks in sentences with no effort or accessory muscle use Eyes- anicteric Neck- no JVD Lungs- clear breath sounds bilaterally,no rales, no crackles Heart- normal rate, irregularly irregular rhythm; no murmurs Abdomen- normal bowel sounds, nondistended, soft, nontender Extremities- no pretibial edema, no calf tenderness Neuro- alert, oriented x 3; no gross focal neurologic deficits Skin- warm & dry Results & Data ([facility]) Vital Signs (Past 12 Hours) Vital Signs Temp Pulse Pulse Resp BP BP Pulse Ox 12/13/19 08:00 85 12/13/19 07:18 36.6 C 87 19 94/46 L 100 12/13/19 04:33 36.6 C 86 20 86/52 L 99 12/12/19 23:56 36.7 C 88 18 101/40 L 99 Laboratory Results Laboratory Results - last 24 hr 12/12/19 12/12/19 12/12/19 11:02 16:02 19:46 WBC RBC Hgb Hct MCV MCH MCHC RDW Std Deviation RDW Coeff of Abi Plt Count MPV Immature Gran % (Auto) Neut % (Auto) Lymph % (Auto) Motley % (Auto) Eos % (Auto) Baso % (Auto) Immature Gran # (Auto) Neut # (Auto) Lymph # (Auto) Motley # (Auto) Eos # (Auto) Baso # (Auto) PT INR Sodium Potassium Chloride Carbon Dioxide Anion Gap BUN Creatinine Est Cr Clr Drug Dosing Est GFR ( Amer) Est GFR (Non-Af Amer) BUN/Creatinine Ratio Glucose POC Glucose 213 H 204 H 206 H Calcium 12/13/19 12/13/19 12/13/19 07:07 07:07 07:07 WBC 9.36 RBC 3.47 L Hgb 9.0 L Hct 28.8 L MCV 83.0 MCH 25.9 MCHC 31.3 L RDW Std Deviation 57.4 H RDW Coeff of Abi 19.1 H Plt Count 266 MPV 9.9 Immature Gran % (Auto) 0.4 Neut % (Auto) 83.0 Lymph % (Auto) 6.3 Motley % (Auto) 6.5 Eos % (Auto) 2.9 Baso % (Auto) 0.9 Immature Gran # (Auto) 0.04 H Neut # (Auto) 7.77 H Lymph # (Auto) 0.59 L Motley # (Auto) 0.61 H Eos # (Auto) 0.27 Baso # (Auto) 0.08 PT 14.4 H INR 1.4 H Sodium 137 Potassium 3.7 Chloride 105 Carbon Dioxide 26 Anion Gap 6.0 BUN 26 H Creatinine 1.33 Est Cr Clr Drug Dosing 55.0 Est GFR ( Amer) 60.6 Est GFR (Non-Af Amer) 52.3 BUN/Creatinine Ratio 19.8 Glucose 147 H POC Glucose Calcium 8.3 L 12/13/19 07:38 WBC RBC Hgb Hct MCV MCH MCHC RDW Std Deviation RDW Coeff of Abi Plt Count MPV Immature Gran % (Auto) Neut % (Auto) Lymph % (Auto) Motley % (Auto) Eos % (Auto) Baso % (Auto) Immature Gran # (Auto) Neut # (Auto) Lymph # (Auto) Motley # (Auto) Eos # (Auto) Baso # (Auto) PT INR Sodium Potassium Chloride Carbon Dioxide Anion Gap BUN Creatinine Est Cr Clr Drug Dosing Est GFR ( Amer) Est GFR (Non-Af Amer) BUN/Creatinine Ratio Glucose POC Glucose 158 H Calcium
[2019-12-13] MEDS ORDERED: SPIRONOLACTONE 25 MG TAB PO SCH (11:00)
[2019-12-13] MEDS ORDERED: TORSEMIDE 20 MG TAB PO SCH (11:00)
--- NOTE | 2019-12-13 11:25 | Discharge Summary ---
Date of Service December 13, 2019 Admission HPI Per Admitting Provider Pt is 74 y/o M with PMH chronic systolic CHF, ischemic cardiomyopathy EF: 30%, CAD s/p CABG in 2002, A-fib on Coumadin, DM II, H/O CVA, HTN, Aortic stenosis s/p TAVR with bioprosthetic valve in 2017, chronic respiratory failure on 2L O2 presented to ER with c/o 1-2 episodes melena x 3 days. Reports on 12/08/19 had episode of coffee ground emesis. No further vomiting. Denies abdominal pain, dizziness, syncope, chest pain. Patient reports chronic shortness of breath with exertion and feels this is at baseline. [facility] Last Coumadin on 12/07/2019. Is on Lovenox. Patient states ate pancakes for breakfast today. Denies fever/chills, diaphoresis, LUCERO, vision changes, neck pain, orthopnea, palpitations, cough, sore throat, choking, otalgia, rhinorrhea, paresthesias, weakness, extremity weakness, extremity edema, rashes, urinary symptoms. Pt was recently admitted to [facility] 11/26/19 through 11/30/19 for cholelithiasis, cholangitis with choledocholithiasis, MSSA bacteremia. had echo that did not show any vegetation. Was transferred to [facility] on 11/30/19 and discharged on 12/05/19. On 12/02, patient underwent EUS which showed evidence of multiple gallstones with purulence within the gallbladder consistent with cholecystitis and cholecystoduodenostomy ([id number] LAMS) was placed. EUS also remarkable for multiple duodenal erosions and esophageal biopsy was obtained (which showed evidence of chronic inflammation without dysplasia)." ID had recommended continuing IV Zosyn until 12/12/19 to treat MSSA bacteremia and cholecystitis. Patient was then discharged to [facility] on 12/05/19. Admission Exam Per Admitting Provider General: no distress, WDWN Head: normocephalic, atraumatic Eyes: PERRL, EOM's intact, conjunctiva non-injected, anicteric ENT: normal inspection external ears, nose, mucous membranes moist Neck: supple, trachea midline Lungs: clear, no respiratory distress, no wheezing/rhonchi/rales CV: irregularly irregular, rate 94, no pretibial edema Abd: normal BS, +scattered ecchymosis (pt was receiving Lovenox injections), soft, non-tender Ext: no cyanosis, no calf tenderness Neuro: A&O x 3, no focal deficits noted, normal affect Skin: warm, dry Principal Diagnosis UPPER GI BLEED Discharge Exam General- oriented x 3, not in distress, speaks in sentences with no effort or accessory muscle use Eyes- anicteric Neck- no JVD Lungs- clear breath sounds bilaterally,no rales, no crackles Heart- normal rate, irregularly irregular rhythm; no murmurs Abdomen- normal bowel sounds, nondistended, soft, nontender Extremities- no pretibial edema, no calf tenderness Neuro- alert, oriented x 3; no gross focal neurologic deficits Skin- warm & dry Discharge Data Allergies Allergy/AdvReac Type Severity Reaction Status Date / Time lisinopril AdvReac Mild COUGH Verified 12/10/19 12:56 Consultations 12/10/19 11:48 ED Decision to Admit Stat 12/10/19 14:33 Consult Case Management - Discharge Planning Routine Consult Gastroenterology Routine Procedures Performed Operation Date: 12/11/19 10:45 Actual Procedures p Esophagogastroduodenoscopy(Not Applicable) - Demi Olsen MD [facility], [place] GI REPORT Signed Patient: ELIZABETH OLEARY EAdmit Date: 12/10/19 MR#: [id number] Phy: Taj Durham MD Acct ID:[id number] Phy: Barrera Puri MD Date: 1945Fam Phy: Age: 74Location: 2E Sex: M Room/Bed: Banner Ref Phy: Self, Referred cc: ~ DICTATED BY: Demi Olsen M.D. Patient Name: Elizabeth Oleary Procedure Date: 12/11/2019 12:33 PM Date of : 1945 Admit Type: Inpatient Age: 74 Gender: Male Attending MD: Demi Olsen MD Procedure: Upper GI endoscopy Providers: Demi Olsen MD Referring MD: Taj A. Panlilio, Barrera Oesterling Indications: Coffee-ground emesis, Melena Medicines: General Anesthesia Complications: No immediate complications. Estimated Blood Loss: Estimated blood loss: none. Procedure: Pre-Anesthesia Assessment: - Prior to the procedure, a History and Physical was performed, and patient medications, allergies and sensitivities were reviewed. The patient's tolerance of previous anesthesia was reviewed. - The risks and benefits of the procedure and the sedation options and risks were discussed with the patient. All questions were answered and informed consent was obtained. - Patient identification and proposed procedure were verified prior to the procedure by the physician and the nurse. The procedure was verified in the procedure room. - Pre-procedure physical examination revealed no contraindications to sedation. After obtaining informed consent, the endoscope was passed under direct vision. Throughout the procedure, the patient's blood pressure, pulse, and oxygen saturations were monitored continuously. The Endoscope was introduced through the mouth, and advanced to the second part of duodenum. The upper GI endoscopy was accomplished without difficulty. The patient tolerated the procedure well. Findings: The examined esophagus was normal. The entire examined stomach was normal. A previously placed cholecystoduodenostomy Axios metal stent was seen in the duodenal bulb. The lumen was intubated and the gallbladder was examined, there was food material which was removed. The gallbladder wall had a medium sized clean based ulcer with no active bleeding or stigmata of recent bleed. There was an adherent yellow colored round material to the ulcer base. The previously placed double pigtail stent in the Axios lumen was migrated out and seen in D2/D3 area. Two previously placed plastic biliary stents were seen at the major papilla. Impression: - Normal esophagus. - Normal stomach. - Patent cholecystoduodenostomy Axios metal stent in the duodenal bulb with clean based ulceration of the gallbladder wall. No active bleeding. This could be from friction over the Axios stent. - Plastic biliary stents in the duodenum. Recommendation: - Perform an ERCP today. - If bleeding recurs, would consider bleeding scan and IR evaluation and would contact Advanced endoscopy team at [facility]. - PO PPI BID dose for 2 months. Demi Olsen MD s Endoscopic Retrograde Cholangiopancreatogram, Stent Removal(Not Applicable) - Demi Olsen MD Findings: Two biliary stents were visible on the air conditioning mechanic industrial film. A air conditioning mechanic industrial film of the abdomen was obtained. One enteric Axios stent in the right upper quadrant was seen. The double pigtail stent had migrated out of the Axios stent. The esophagus was successfully intubated under direct vision. The scope was advanced to a normal major papilla in the descending duodenum without detailed examination of the pharynx, larynx and associated structures, and upper GI tract. The upper GI tract was grossly normal. A biliary sphincterotomy had been performed. The sphincterotomy appeared open. Two plastic biliary stents originating in the common bile duct were emerging from the major papilla. Two stents were removed from the common bile duct using a snare. The migrated double pigtail stent was removed. A 0.035 inch straight standard wire was passed into the biliary tree. The 8.5 mm balloon was passed over the guidewire and the bile duct was then deeply cannulated. Contrast was injected. I personally interpreted the bile duct images. Ductal flow of contrast was adequate. Image quality was adequate. Contrast extended to the main bile duct. The main bile duct was moderately dilated. The largest diameter was 9 mm. The biliary tree was swept with an 11.5 mm balloon and 15 mm balloon starting at the bifurcation. Nothing was found. Occlusion cholangiogram showed no filling defects. PD was not cannulated. Impression: - Two stents were removed from the common bile duct. - The biliary tree was swept and nothing was found. Recommendation: - Return patient to [facility] for [facility] care. Demi Olsen MD Ordered Studies 12/11/19 12:00 FL ERCP biliary ductal Routine Hospital Course (1) GI bleed: Per admitting PA notes: Pt is 74 y/o M with PMH chronic systolic CHF, ischemic cardiomyopathy EF: 30%, CAD s/p CABG in 2002, A-fib on Coumadin, DM II, H/O CVA, HTN, Aortic stenosis s/p TAVR with bioprosthetic valve in 2017, chronic respiratory failure on 2L O2 presented to ER with c/o 1-2 episodes melena x 3 days. Reports on 12/08/19 had episode of coffee ground emesis. No abdominal pain, dizziness, syncope, CP or increased SOB. Last Coumadin given on 12/07/2019. On Lovenox Status post EGD: - Normal esophagus. - Normal stomach. - Patent cholecystoduodenostomy Axios metal stent in the duodenal bulb with clean based ulceration of the gallbladder wall. No active bleeding. This could be from friction over the Axios stent. Status post ERCP, with biliary stent removal No signs of bleeding on ERCP Hemoglobin up to 9 from 7.6 after 1 unit of packed RBC ok to resume coumadin, asa as per GI Protonix 40mg bid x 2 months repeat CBC on ff up with PCP this week ff up with GI in 2 weeks (2) MSSA bacteremia: Per admitting PA notes: Choledocholithiasis, cholangitis Recent admission to [facility] 11/26/19- 11/30/19 for cholelithiasis, cholangitis with choledocholithiasis, MSSA bacteremia. had echo that did not show any vegetation. Was transferred to [facility] on 11/30/19 - 12/05/19. 12/03/19 had EUS which showed evidence of multiple gallstones with purulence within the gallbladder consistent with cholecystitis and cholecystoduodenostomy ([id number] LAMS) was placed. EUS also remarkable for multiple duodenal erosions and esophageal biopsy was obtained (which showed evidence of chronic inflammation without dysplasia). ID had recommended continuing IV Zosyn until 12/12/19 LFTs have down trended. No abdominal pain. Denies recent fever or chills. -completed course of Zosyn IV 12/12/19 afebrile, no abdominal pain (3) Chronic systolic (congestive) heart failure: EF: 30% CXR: Mild congestive failure. Bilateral pleural effusions patient clinically euvolemic resume torsemide, spironolactone (4) Ischemic cardiomyopathy: EF: 30% CXR: Mild congestive failure. Bilateral pleural effusions -torsemide, spironolactone resumed (5) Coronary artery disease: S/P CABG in 2002 No CP - resume aspirin, metoprolol (6) Atrial fibrillation: Chronic A-fib On Coumadin INR:1.4 -resume Coumadin 5mg po daily needs to ff up with Coumadin Clinic this week, will notify them (7) Diabetes mellitus, type II: A1c: 7.4 on 11/26/2019 -continue usual regimen -ff up with PCP (8) Stroke: -resume ASA (9) Chronic respiratory failure with hypoxia: -Continue 2L oxygen via NC HS and as needed (10) Anxiety: -Continue buspirone (11) Aortic stenosis: S/P TAVR 2016 (12) CKD (chronic kidney disease): Chronic kidney disease, stage II-III Stable Disposition d/c home ff up with PCP this week ff up with GI Dr. Olsen in 2 weeks ff up with Negative Cutter as scheduled Total Time Total Time Spent Total Time Spent (In Minutes): 55 minutes Discharge Plan Discharge Items Patient Disposition: Home - Self-Care Reason For Visit: GI BLEED Discharge Diagnosis: UPPER GASTROINTESTINAL BLEED Activity: As commented below Activity Comment: RESUME ACTIVITY GRADUALLY TOLERATED Lifting: Wait until after follow-up appointment Exercise/Sports: Wait until after follow-up appointment Driving/Machine Use: NO DRIVING UNTIL RE-EVALUATED AND ALLOWED BY PRIMARY CARE PHYSICIAN Non-emergency contact: Primary Care Provider Call non-emergency contact if: you have any medication questions, your symptoms worsen, your pain is not controlled, your pain is unusual for you and you have a fever Follow-up/Referrals: Barrera Puri MD [Primary Care Provider] - 12/18/19 10:00 am (0945 ARRIVAL TIME) Demi Olsen MD [Hospitalist] - Diet: Carb Consistent or DM2 and Heart Healthy Addtl Attending Provider Instructions: YOUR NEW MEDICATION IS: PROTONIX 40MG TWICE A DAY- AT LEAST 30 MINUTES BEFORE BREAKFAST AND DINNER This is an antacid to prevent stomach bleeding. ALWAYS TAKE ASPIRIN WITH A FULL STOMACH. DO NOT USE PAIN MEDICATION UNDER THE CLASS OF NSAIDS- IBUPROFEN, NAPROXEN, ETC. CALL PRIMARY CARE PHYSICIAN OR RETURN TO ER IMMEDIATELY IF WITH RECURRENCE OF BLACK OR BLOODY STOOLS, ABDOMINAL PAIN, FEVER/CHILLS, NAUSEA/VOMITING, SHORTNESS OF BREATH, CHEST PAIN, DIZZINESS, DIARRHEA. PLEASE FOLLOW UP WITH PRIMARY CARE PHYSICIAN IN 1 WEEK. FOLLOW UP WITH COUMADIN CLINIC ON SATURDAY FOR BLOODWORK AND ADVICE REGARDING COUMADIN DOSE. FOLLOW UP WITH BRICKLAYER SUPERVISOR DR. OLSEN IN 2 WEEKS. PLEASE CALL HIS OFFICE TO SET UP AN APPOINTMENT. CONTACT INFORMATION OUTLINED ABOVE. FOLLOW UP WITH WATCH CRYSTAL GRINDER SCHEDULED. Pending Studies at Discharge: Yes Studies:: BLOODWORK- INR C/O COUMADIN CLINIC ON OR SATURDAY CBC- C/O PRIMARY CARE PHYSICIAN THIS WEEK Stand-Alone Forms: My [employer], Smoking Cessation Medications and DC Order Prescriptions: Continued torsemide 20 mg tablet 40 mg PO QAM RF: 0 spironolactone [Aldactone] 25 mg tablet 25 mg PO QAM RF: 0 Humulin R Regular U-100 Insuln 100 unit/mL Solution 1 sliding scale dose SUBCUT ACHS RF: 0 docusate sodium [Colace] 100 mg Capsule 100 mg PO BID RF: 0 torsemide 20 mg tablet 20 mg PO QDD RF: 0 aspirin 81 mg Tablet,Delayed Release (Dr/Ec) 81 mg PO QAM RF: 0 acetaminophen [Tylenol] 325 mg Capsule 325 mg PO Q4H PRN (Reason: Fever Or Pain) RF: 0 sennosides-docusate sodium [Senokot-S] 8.6-50 mg Tablet 1 tab-cap PO QDL PRN (Reason: Constipation) RF: 0 bisacodyl [Dulcolax (bisacodyl)] 10 mg Suppository 10 mg GA DAILY PRN (Reason: Constipation) RF: 0 glucagon (human recombinant) 1 mg Recon Soln 1 mg subcut UD PRN (Reason: Unknown) RF: 0 ondansetron 4 mg Tablet,Disintegrating 4 mg PO Q6H PRN (Reason: Nausea) RF: 0 dextrose 50 % in water (D50W) Syringe 50 ml IV UD PRN (Reason: Unknown) RF: 0 sodium chloride 0.9 % (flush) [Normal Saline Flush] Syringe 10 ml IV BID RF: 0 pantoprazole [Protonix] 40 mg Tablet,Delayed Release (Dr/Ec) 40 mg PO BID 30 Days Qty: 60 RF: 1 atorvastatin [Lipitor] 40 mg Tablet 40 mg PO HS RF: 0 polyethylene glycol 3350 [Miralax] 17 gram Powder In Packet 17 g PO QDL PRN (Reason: Constipation) RF: 0 tamsulosin [Flomax] 0.4 mg Capsule 0.4 mg PO QAM RF: 0 nitroglycerin [Nitrostat] 0.4 mg Tablet, Sublingual 0.4 mg sublingual DIRECTED PRN (Reason: Chest Pain) RF: 0 zolpidem [Ambien] 5 mg Tablet 5 mg PO HS RF: 0 magnesium oxide 400 mg magnesium Tablet 400 mg PO QAM RF: 0 gabapentin [Neurontin] 100 mg Capsule 100 mg PO TID RF: 0 metoprolol succinate [Toprol XL] 25 mg Tablet Extended Release 24 Hr 25 mg PO QAM RF: 0 buspirone 10 mg tablet 10 mg PO TID RF: 0 Changed warfarin [Coumadin] 5 mg Tablet 5 mg PO DAILY Qty: 30 RF: 0 Discontinued piperacillin-tazobactam [Zosyn] 3.375 gram Recon Soln 3.375 g IV Q8H RF: 0 enoxaparin [Lovenox] 40 mg/0.4 mL Syringe 40 mg SUBCUT DAILY@1900 RF: 0 Enema 19-7 gram/118 mL Enema 133 ml GA DAILY PRN (Reason: Constipation) RF: 0 Discharge Orders: Discharge Order (Routine); Ordered 12/13/19 Ordered By: Taj Durham Admission Data Admit Date/Time: 12/10/19 12:23 Attending Provider: Taj Durham Admit Provider: Taj Durham Primary Care Provider: Barrera Puri Other Providers: Taj Durham ; Demi Olsen
== END 2019-12-13 13:21 | disposition home or self-care (01) | DRG 378 ==
LOC: ED 11:03 → 2E 12:23

== ENCOUNTER 2020-01-21 12:46 | Inpatient (IN) ==
[~2020-01-21 12:46] MED LIST changes: -ASCA500 PO; -ASPEC81 PO; -ATEN-173 PO; -ATOR80TA PO; -B-COCAP2 PO; -CEPH500C2 PO; -GLIP10TA9 PO; -INSDGI SC; -LOSA1TAB PO; -LSX40 PO; -MAGN400T5 PO; -NTRGSL/4 UT; -OMEG10007 PO; +SODIUM CHLORIDE 0.9% 10ML FLUSH IV ONE; +SODIUM CHLORIDE 0.9% 500 ML BAG IV ONE; -SPIR25TA PO; -WARF5TAB90 PO
--- NOTE | 2020-01-21 13:30 | Emergency Department Note ---
History of Present Illness General Chief complaint: Shortness of Breath/Dyspnea Stated complaint: REFERRED BY DOCTOR, STEPHEN, HEART FAILURE Time Seen by Provider: 01/21/20 12:57 Source: patient, RN notes reviewed and old records reviewed Mode of arrival: ambulatory Limitations: no limitations History of Present Illness Provider complaint: Shortness of breath Onset (ago): week(s) 2 Location: chest Radiation: non-radiation Current Pain Intensity: 0 Associated symptoms: + other (swelling in legs) This is a 75-year-old male who was sent in by his primary care physician's of anuj over concerns of the patient was more short of breath and having increasing swelling bilaterally in his legs. Patient reports he has been short of breath for several weeks. He is on 2 L of oxygen at home and is currently on 3 L here in the emergency department. He denies any chest or abdominal pain. Home Medications Home Medications Medication Instructions Recorded Confirmed Type atorvastatin [Lipitor] 40 mg PO HS 04/05/19 01/21/20 History nitroglycerin [Nitrostat] 0.4 mg SUBLINGUAL UD PRN 04/05/19 01/21/20 History tamsulosin [Flomax] 0.4 mg PO QPM 04/05/19 01/21/20 History zolpidem [Ambien] 5 mg PO HS 04/05/19 01/21/20 History gabapentin [Neurontin] 100 mg PO TID 05/29/19 01/21/20 History metoprolol succinate [Toprol XL] 25 mg PO QAM 05/29/19 01/21/20 History buspirone 10 mg PO TID 11/25/19 01/21/20 History Humulin R Regular U-100 Insuln 0 sliding scale dose SUBCUT ACHS 12/08/19 01/21/20 History aspirin 81 mg PO QAM 12/08/19 01/21/20 History spironolactone [Aldactone] 25 mg PO BID 12/08/19 01/21/20 History torsemide 20 mg PO QDD 12/08/19 01/21/20 History torsemide 40 mg PO QAM 12/08/19 01/21/20 History acetaminophen [Tylenol] 325 mg PO Q4H PRN 12/10/19 01/21/20 History pantoprazole [Protonix] 40 mg PO BID 30 Days #60 tab 12/13/19 01/21/20 Rx warfarin [Coumadin] 0 mg PO UD 01/21/20 01/21/20 History Allergies Allergy/AdvReac Type Severity Reaction Status Date / Time lisinopril AdvReac Mild COUGH Verified 12/10/19 12:56 Past Med/Surg History Medical History Anxiety Aortic stenosis s/p TAVR with MV replacement 12/2016. Atrial fibrillation ON WARFARIN - FOLLOWS W/ DR. KOWALSKI Cardiac murmur Severe mitral annular calcification per 03/2019 echo. Limited echo, valves not well visualized. H/O MV repair and AVR. CHF (congestive heart failure) Cholecystitis, chronic Chronic respiratory failure with hypoxia Chronic systolic (congestive) heart failure Coronary artery disease s/p CABG 2002 Degenerative disc disease Diabetes mellitus, type II IDDM Diabetic neuropathy Diverticular disease Dyslipidemia GERD (gastroesophageal reflux disease) History of recent pneumonia HOSPITALIZED 03/2019 [facility] History of renal calculi Hypertension Ischemic cardiomyopathy EF 25-30%, pt refused ICD. On anticoagulant therapy SOB (shortness of breath) on exertion Spinal stenosis Stroke 2 YEARS AGO - WEAKNESS LEFT SIDE Transient ischemic attack (TIA) 2016 Surgical History Difficult airway Glidescope #4 atraumatic attempt x 1, 04/05/19 History of aortic valve replacement History of TAVR complicated by prosthetic fracture and then underwent open surgical aortic valve replacement, mitral valve repair in 2016 History of cardiac cath 2 YEARS AGO - [facility] - NO STENTS/ANGIOPLASTY --> VALVE REPLACEMEN T History of cardiac radiofrequency ablation For A flutter, 2005. History of cardioversion History of cataract surgery History of chest tube placement During admission 04/05 - 04/28 for empyema History of ERCP 04/09/19. Glidescope #4. History of mitral valve repair 01/22/2017 History of thoracentesis 04/10/19 Status post coronary artery bypass grafting 15 YEARS AGO - 3 VESSELS Family History Father Cirrhosis Social History Preferred Language: Bruneian Communication Ability: Effective Hand Rounder Required: No Beliefs That Will Affect Care: None marital status: Current Living Situation: Spouse Other Information That Helps Us Care for You: No Feels Safe at Home: Yes Safety Concerns: Feels Safe At This Time Smoking Status: Never smoker Tobacco Type: smokeless tobacco ; Do You Dip or Chew Tobacco: No ; Second Hand Exposure: No ; Tobacco Cessation Education Requested by Patient: No Hx Alcohol Use: No Hx Substance Use: No Review of Systems A total of 10 systems reviewed and were otherwise negative Physical Exam Vital Signs Vital Signs - 24 hr 01/21/20 12:48 01/21/20 13:12 01/21/20 14:44 Temperature 36.3 C L Temperature Source Oral Pulse Rate 77 101 H Pulse Rate [Apical] 103 H Pulse Rhythm Irregular Pulse Rhythm [Apical] Regular Pulse Strength [Apical] Normal Respiratory Rate 20 14 20 Respiratory Effort / Characteristics Non-Labored Spontaneous Non-Labored Spontaneous Respiratory Depth Normal Normal Respiratory Pattern Regular Blood Pressure 108/66 Blood Pressure [Left Arm] 107/62 Blood Pressure Mean 80 Blood Pressure Mean [Left Arm] 77 Blood Pressure Position Sitting Blood Pressure Position [Left Arm] Sitting Pulse Oximetry 96 100 100 Oxygen Delivery Method Room Air Nasal Cannula Nasal Cannula Oxygen Flow Rate 3 3.5 Sepsis Recent Fever Within 48 Hours No Sepsis Action Taken by Nursing No Action Required 01/21/20 14:46 Temperature Temperature Source Pulse Rate Pulse Rate [Apical] Pulse Rhythm Pulse Rhythm [Apical] Pulse Strength [Apical] Respiratory Rate Respiratory Effort / Characteristics Non-Labored Spontaneous Respiratory Depth Normal Respiratory Pattern Regular Blood Pressure Blood Pressure [Left Arm] Blood Pressure Mean Blood Pressure Mean [Left Arm] Blood Pressure Position Blood Pressure Position [Left Arm] Pulse Oximetry 100 Oxygen Delivery Method Nasal Cannula Oxygen Flow Rate 3 Sepsis Recent Fever Within 48 Hours Sepsis Action Taken by Nursing GENERAL: Patient is a healthy-appearing well-nourished male HEAD: Normocephalic atraumatic EYES: Ocular movements intact pupils equal and react to light OROPHARYNX mucous membranes are moist no exudates present no erythema or edema present NECK: Supple no nuchal rigidity CHEST: Good equal expansion LUNGS: Clear and equal to auscultation CARDIAC: Normal S1 and S2 ABDOMEN: Soft nontender no guarding BACK: No CVA tenderness EXTREMITIES: No pain upon palpation normal muscle strength in all groups no clubbing cyanosis +2 pitting edema bilaterally NEURO: Patient is following commands is answering questions appropriately. Alert and oriented x3 Cranial Nerves 2-12 grossly intact Course Administered Medications Spironolactone (Aldactone) 25 mg PO [id number] ZAHRA Stop: 02/20/20 17:59 Last Admin: 01/21/20 18:27 Dose: 25 mg Documented by: [id number] Discontinued Medications Furosemide (Lasix) 40 mg IV NOW STA Stop: 01/21/20 14:22 Last Admin: 01/21/20 14:44 Dose: 40 mg Documented by: [id number] Albumin Human (Albumin 25%) 50 mls @ 50 mls/hr IV ONE ONE Stop: 01/21/20 17:36 Last Infusion: 01/21/20 18:13 Dose: 0 mls/hr Documented by: [id number] Admin: 01/21/20 17:13 Dose: 50 mls/hr Documented by: [id number] Medical Decision Making Differential Diagnosis Reactive airway disease, pneumonia, pneumothorax, COPD, CHF, infections, cardiac ischemia, pulmonary embolism, musculoskeletal, gastrointestinal, as well as other pathologies. Medical Records Attestation: I reviewed the patient's medical records. Home Medications Current Medication List: was personally reviewed by me Laboratory Data Attestation: I reviewed the patient's lab results. Result diagrams: 01/21/20 13:17 01/21/20 13:17 Lab Results 01/21/20 01/21/20 01/21/20 Range/Units 13:17 13:17 13:17 WBC 8.95 (4.8-10.8) K/uL RBC 4.33 L (4.7-6.1) M/uL Hgb 9.6 L (14.0-18.0) g/dL Hct 33.1 L (42-52) % MCV 76.4 L (80-100) fL MCH 22.2 L (25-34) pg MCHC 29.0 L (32-36) g/dL RDW Std Deviation 54.6 H (36.4-46.3) fL RDW Coeff of Abi 19.6 H (11.5-14.5) % Plt Count 292 (130-400) K/uL MPV 9.9 (7.4-10.4) fL Immature Gran % (Auto) 0.2 % Neut % (Auto) 86.7 % Lymph % (Auto) 4.9 % [place] % (Auto) 7.4 % Eos % (Auto) 0.6 % Baso % (Auto) 0.2 % Immature Gran # (Auto) 0.02 (0.00-0.02) K/uL Neut # (Auto) 7.76 H (1.4-6.5) K/uL Lymph # (Auto) 0.44 L (1.2-3.4) K/uL [place] # (Auto) 0.66 H (0.11-0.59) K/uL Eos # (Auto) 0.05 (0-0.5) K/uL Baso # (Auto) 0.02 (0-0.2) K/uL ESR 26 H (0-14) mm/hr PT Cancelled INR Cancelled APTT Cancelled PTT Ratio Cancelled Sodium (136-145) mmol/L Potassium (3.5-5.1) mmol/L Chloride (98-107) mmol/L Carbon Dioxide (21-32) mmol/L Anion Gap (3-11) BUN (7-18) mg/dl Creatinine (0.6-1.4) mg/dl Est Cr Clr Drug Dosing Est GFR ( Amer) Est GFR (Non-Af Amer) BUN/Creatinine Ratio (10-20) Glucose (70-99) mg/dl Calcium (8.5-10.1) mg/dl Ferritin (8-388) ng/ml Total Bilirubin (0.2-1) mg/dl AST (15-37) U/L ALT (12-78) U/L Alkaline Phosphatase (45-117) U/L Total Creatine Kinase (39-308) U/L CK-MB (CK-2) (0.5-3.6) ng/ml CK/CKMB % Calc (0-3.0) Troponin I (0-0.045) ng/ml C-Reactive Protein (0-0.29) mg/dl NT-Pro-B Natriuret Pep (0-900) pg/ml Total Protein (6.4-8.2) gm/dl Albumin (3.4-5.0) gm/dl Globulin (2.5-4.0) gm/dl Albumin/Globulin Ratio (0.9-2) Lipase (73-393) U/L 01/21/20 01/21/20 Range/Units 13:17 14:41 WBC (4.8-10.8) K/uL RBC (4.7-6.1) M/uL Hgb (14.0-18.0) g/dL Hct (42-52) % MCV (80-100) fL MCH (25-34) pg MCHC (32-36) g/dL RDW Std Deviation (36.4-46.3) fL RDW Coeff of Abi (11.5-14.5) % Plt Count (130-400) K/uL MPV (7.4-10.4) fL Immature Gran % (Auto) % Neut % (Auto) % Lymph % (Auto) % [place] % (Auto) % Eos % (Auto) % Baso % (Auto) % Immature Gran # (Auto) (0.00-0.02) K/uL Neut # (Auto) (1.4-6.5) K/uL Lymph # (Auto) (1.2-3.4) K/uL [place] # (Auto) (0.11-0.59) K/uL Eos # (Auto) (0-0.5) K/uL Baso # (Auto) (0-0.2) K/uL ESR (0-14) mm/hr PT 40.1 H INR 4.1 H APTT 37.8 H PTT Ratio 1.4 Sodium 140 (136-145) mmol/L Potassium 4.3 (3.5-5.1) mmol/L Chloride 104 (98-107) mmol/L Carbon Dioxide 30 (21-32) mmol/L Anion Gap 6.0 (3-11) BUN 59 H (7-18) mg/dl Creatinine 1.56 H (0.6-1.4) mg/dl Est Cr Clr Drug Dosing Not Reportable Est GFR ( Amer) 49.6 Est GFR (Non-Af Amer) 42.8 BUN/Creatinine Ratio 38.1 H (10-20) Glucose 192 H (70-99) mg/dl Calcium 8.5 (8.5-10.1) mg/dl Ferritin 58.4 (8-388) ng/ml Total Bilirubin 0.6 (0.2-1) mg/dl AST 20 (15-37) U/L ALT 22 (12-78) U/L Alkaline Phosphatase 110 (45-117) U/L Total Creatine Kinase 40 (39-308) U/L CK-MB (CK-2) 2.6 (0.5-3.6) ng/ml CK/CKMB % Calc 6.5 H (0-3.0) Troponin I 0.052 H* (0-0.045) ng/ml C-Reactive Protein 0.93 H (0-0.29) mg/dl NT-Pro-B Natriuret Pep 12258 H (0-900) pg/ml Total Protein 7.4 (6.4-8.2) gm/dl Albumin 2.7 L (3.4-5.0) gm/dl Globulin 4.7 H (2.5-4.0) gm/dl Albumin/Globulin Ratio 0.6 L (0.9-2) Lipase 171 (73-393) U/L Imaging Data Radiologist's Impression: [place], [place] [phone] XRay Report Patient: ELIZABETH OLEARY EAdmit Date: 01/21/20 MR#: [id number]: [address] Acct ID:[id number]: Date: [address] [place] [address] Zip: [place] [address] Age: 75Location: ED Sex: M Room/Bed: Att Phy:Diagnosis: REFERRED BY DOCTOR, SOB, HEART FAILURE Cara Phy: PCP,NOService Date: 01/21/20 Fam Phy:Interpreting Phy: Kenneth Ortiz MD Admit Phy: Ordering Phy: Juan Ocampo MD cc: ~ XR chest 1V portable CLINICAL HISTORY: Chest Pain dyspnea COMPARISON STUDY: 12/10/2019 FINDINGS: Findings of developing and/or progressive congestive heart failure. Small bilateral pleural effusions. Prior median sternotomy. Pulmonary apices are clear. Chronic pleural thickening left pulmonary apex. IMPRESSION: Congestive heart failure. Small bilateral pleural effusions. ACT 112: Negative or not required by law. The above report was generated using voice recognition software. It may contain grammatical, syntax or spelling errors. Electronically signed by: Kenneth Ortiz M.D. 01/21/2020 1:33 PM Dictated: 01/21/20 1332 Transcribed: 01/21/20 1332 ECG Data Attestation: I personally reviewed and interpreted this ECG as follows: Indication: + SOB/dyspnea Rate (beats per minute): 99 Rhythm: + atrial fibrillation ECG Intervals/blocks: + Normal QT-c (508) ECG Harbinger: + Normal ECG ST segments: no ST depression and no ST elevation ECG Findings: + PVCs Comparison ECG Date: from (12/10/2019) Change: no significant change Blood Pressure Blood Pressure Findings: Low blood pressure MDM Narrative This is a 75-year-old male who presents emergency department complaining of shortness of breath. Patient does appear to be volume overloaded on physical examination as well as his chest x-ray. In addition his BNP and troponin are also elevated. The patient was given 40 mg of Lasix here in the emergency department. He was independently evaluated by both cardiology as well as the hospitalist. Impression & Plan CKD (chronic kidney disease), Acute on chronic systolic (congestive) heart failure, Elevated troponin, Anemia Discharge Plan Visit Data *Final* Discharge Date/Time: 01/21/20 15:46 Chief Complaint: Shortness of Breath/Dyspnea Stated Complaint: REFERRED BY DOCTOR, SOB, HEART FAILURE ED Provider: Juan Ocampo Discharge Problem: CKD (chronic kidney disease), Acute on chronic systolic (congestive) heart failure, Elevated troponin, Anemia Patient Disposition: Admitted As Inpatient Discharge Instructions Interventions: ED Discharge Assessment Last Done: 01/21/20 15:46 Discharge Problem: CKD (chronic kidney disease) Qualifiers: Chronic kidney disease stage: unspecified stage Qualified Code(s): N18.9 - Chronic kidney disease, unspecified Anemia Qualifiers: Anemia type: unspecified type Qualified Code(s): D64.9 - Anemia, unspecified
--- NOTE | 2020-01-21 13:34 | XRay Report ---
XR chest 1V portable CLINICAL HISTORY: Chest Pain dyspnea COMPARISON STUDY: 12/10/2019 FINDINGS: Findings of developing and/or progressive congestive heart failure. Small bilateral pleural effusions. Prior median sternotomy. Pulmonary apices are clear. Chronic pleural thickening left pulm onary apex. IMPRESSION: Congestive heart failure. Small bilateral pleural effusions. ACT 112: Negative or not required by law. The above report was generated using voice recognition software. It may contain grammatical, syntax or spelling errors. Electronically signed by: Kenneth Ortiz M.D. 01/21/2020 1:33 PM
[2020-01-21 13:35] LABS: Basophils # (auto) 0.02 K/uL (0-0.2); Basophils % (auto) 0.2 %; Eosinophils # (auto) 0.05 K/uL (0-0.5); Eosinophils % (auto) 0.6 %; Hematocrit (blood only) 33.1 % (42-52); Hemoglobin 9.6 g/dL (14.0-18.0); Immature Granulocytes # (auto) 0.02 K/uL (0.00-0.02); Immature Granulocytes % (auto) 0.2 %; Lymphocytes # (auto) 0.44 K/uL (1.2-3.4); Lymphocytes % (auto) 4.9 %; Mean Corpuscular Hemoglobin 22.2 pg (25-34); Mean Corpuscular Volume 76.4 fL (80-100); Mean Platelet Volume 9.9 fL (7.4-10.4); Monocytes # (auto) 0.66 K/uL (0.11-0.59); Monocytes % (auto) 7.4 %; Neutrophils # (auto) 7.76 K/uL (1.4-6.5); Neutrophils % (auto) 86.7 %; Platelet Count 292 K/uL (130-400); RDW Coefficient of Variation 19.6 % (11.5-14.5); RDW Standard Deviation 54.6 fL (36.4-46.3); Red Blood Count 4.33 M/uL (4.7-6.1); White Blood Count 8.95 K/uL (4.8-10.8)
[2020-01-21 13:53] LABS: Alanine Aminotransferase 22 U/L (12-78); Albumin Level 2.7 gm/dl (3.4-5.0); Aspartate Aminotransferase 20 U/L (15-37); BUN Creatinine Ratio 38.1 (10-20); Blood Urea Nitrogen 59 mg/dl (7-18); C Reactive Protein 0.93 mg/dl (0-0.29); Calcium 8.5 mg/dl (8.5-10.1); Carbon Dioxide 30 mmol/L (21-32); Chloride 104 mmol/L (98-107); Est GFR (African American) 49.6; Est GFR (Non-African American) 42.8; Glucose 192 mg/dl (70-99); Lipase 171 U/L (73-393); Potassium 4.3 mmol/L (3.5-5.1); Sodium 140 mmol/L (136-145)
[2020-01-21 14:07] LABS: Albumin Globulin Ratio 0.6 (0.9-2); Alkaline Phosphatase 110 U/L (45-117); Bilirubin,Total 0.6 mg/dl (0.2-1); Creatine Kinase 40 U/L (39-308); Creatine Kinase MB 2.6 ng/ml (0.5-3.6); Ferritin 58.4 ng/ml (8-388); Globulin 4.7 gm/dl (2.5-4.0); NT Pro B Type Natriuretic Pept 10739 pg/ml (0-900); Total Protein 7.4 gm/dl (6.4-8.2); Troponin I 0.052 ng/ml (0-0.045)
[2020-01-21] MEDS ORDERED: FUROSEMIDE 40 MG/4 ML VIAL IV STA (14:21)
--- NOTE | 2020-01-21 14:37 | Electrocardiogram Report ---
Test Reason : Blood Pressure : / mmHG Vent. Rate : 099 BPM Atrial Rate : 052 BPM P-R Int : 000 ms QRS Dur : 160 ms QT Int : 396 ms P-R-T Axes : 000 268 038 degrees QTc Int : 508 ms Atrial fibrillation with aberrant conduction Right bundle branch block Inferior infarct (cited on or before 10-DEC-2019) Abnormal ECG Confirmed by Daryn Bettencourt ([id number]) on 01/21/2020 2:37:01 PM Referred By: Confirmed By:Rick Bettencourt
[2020-01-21 15:14] LABS: INR 4.1 (0.9-1.1); Partial Thromboplastin Ratio 1.4; Partial Thromboplastin Time 37.8 Seconds (21.0-31.0); Prothrombin Time 40.1 Seconds (9.0-12.0)
--- NOTE | 2020-01-21 16:06 | Cardiology Consultation ---
Date of Consultation January 21, 2020 Assessment & Plan (1) Ischemic cardiomyopathy: Acute on chronic systolic heart failure h/o failed TAVR, with rescue surgical bio AVR, 2016 CKD, creatinined 1.54 today, has recently been in the 1.5 -2 mg/dl range as outpatient Chronic AF, on coumadin with coagulopathy today, INR 4.1 Proceed with IV furosemide. Agree with starting with 40 mg. Given low albumin and concerns of recent poor nutrition, will administer IV albumin as well. I think the yield of a repeat echocardiogram was low as he just had one performed in October. His INR is above goal at 4.1, Coumadin is to be held. History of Present Illness History of Present Illness Mr Bustillo is a 75 year old male seen in cardiology consultation in the Emergency Department [facility] He is well known to our cardiology service. He had been to see his primary care provider, Dr. Barrera Puri today and was found to have increasing shortness of breath over the last several days as well as worsening lower extremity edema for at least the last 3 days. He has had increasing generalized weakness and is unable to stand. He was therefore referred to the emergency department for ongoing assessment. 2+ lower extremity pitting edema is present. Creatinine is 1.54 which is little bit higher than his typical baseline. EKG reveals atrial fibrillation in the 80 to 90 bpm range with chronic right bundle branch block pattern. Atrial fibrillation is a chronic finding for him. Patient had prolonged course of care in October to November 2023 acute cholecystitis, felt to be a poor operative candidate, and was transferred [place] [facility] and underwent biliary stenting on 12/03/2019 The stents were since retrieved on 12/11/2019 and patient denies any abdominal complaints at present. Past Cardiac / Vascular History: 1.ASCVD s/p CABG in April 2003, SIERRA to the LAD, SVG to the ramus intermedius, and a free radial artery graft to the PDA. 2.Ischemic cardiomyopathy with LVEF 25-30%. ICD implantation declined, most recent TTecho 11/26/19 LVEF 30-35% 3.Diagnostic cardiac catheterization on October 09, 2016 showed significant 3 vessel disease with 2 of 3 bypass grafts patent. The SVG to the ramus was known to be occluded. 4.Aortic valve stenosis. 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 Kauffman on 01/24/2017. 5.Atrial flutter status post radiofrequency catheter ablation of the tricuspid annulus/inferior vena cava isthmus in 6.Past paroxysmal and now chronic atrial fibrillation 7.Chronic coumadin anticoagulation 8.CVA in August of 2005 9.Carotid occlusive disease revealing 50 to 69% ZAKIYA stenosis and less than 50% LICA stenosis with heavily calcified plaque observed. 10.Type II diabetes mellitus with neuropathy. 11.Nocturnal hypoxemia, treated with supplemental oxygen therapy. 12.Hypertension 13.Dyslipidemia 14. 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, paroxysmal ventricular arrhythmias Allergies Allergy/AdvReac Type Severity Reaction Status Date / Time lisinopril AdvReac Mild COUGH Verified 12/10/19 12:56 Home Medications Home Medications Medication Instructions Recorded Confirmed Type atorvastatin [Lipitor] 40 mg PO HS 04/05/19 01/21/20 History nitroglycerin [Nitrostat] 0.4 mg SUBLINGUAL UD PRN 04/05/19 01/21/20 History tamsulosin [Flomax] 0.4 mg PO QPM 04/05/19 01/21/20 History zolpidem [Ambien] 5 mg PO HS 04/05/19 01/21/20 History gabapentin [Neurontin] 100 mg PO TID 05/29/19 01/21/20 History metoprolol succinate [Toprol XL] 25 mg PO QAM 05/29/19 01/21/20 History buspirone 10 mg PO TID 11/25/19 01/21/20 History Humulin R Regular U-100 Insuln 0 sliding scale dose SUBCUT ACHS 12/08/19 01/21/20 History aspirin 81 mg PO QAM 12/08/19 01/21/20 History spironolactone [Aldactone] 25 mg PO BID 12/08/19 01/21/20 History torsemide 20 mg PO QDD 12/08/19 01/21/20 History torsemide 40 mg PO QAM 12/08/19 01/21/20 History acetaminophen [Tylenol] 325 mg PO Q4H PRN 12/10/19 01/21/20 History pantoprazole [Protonix] 40 mg PO BID 30 Days #60 tab 12/13/19 01/21/20 Rx warfarin [Coumadin] 0 mg PO UD 01/21/20 01/21/20 History Patient History Medical History Anxiety Aortic stenosis s/p TAVR with MV replacement 12/2016. Atrial fibrillation ON WARFARIN - FOLLOWS W/ DR. KOWALSKI Cardiac murmur Severe mitral annular calcification per 03/2019 echo. Limited echo, valves not well visualized. H/O MV repair and AVR. CHF (congestive heart failure) Cholecystitis, chronic Chronic respiratory failure with hypoxia Chronic systolic (congestive) heart failure Coronary artery disease s/p CABG 2002 Degenerative disc disease Diabetes mellitus, type II IDDM Diabetic neuropathy Diverticular disease Dyslipidemia GERD (gastroesophageal reflux disease) History of recent pneumonia HOSPITALIZED 03/2019 [facility] History of renal calculi Hypertension Ischemic cardiomyopathy EF 25-30%, pt refused ICD. On anticoagulant therapy SOB (shortness of breath) on exertion Spinal stenosis Stroke 2 YEARS AGO - WEAKNESS LEFT SIDE Transient ischemic attack (TIA) 2016 Surgical History Difficult airway Glidescope #4 atraumatic attempt x 1, 04/05/19 History of aortic valve replacement History of TAVR complicated by prosthetic fracture and then underwent open surgical aortic valve replacement, mitral valve repair in 2016 History of cardiac cath 2 YEARS AGO - [facility] - NO STENTS/ANGIOPLASTY --> VALVE REPL ACEMENT History of cardiac radiofrequency ablation For A flutter, 2005. History of cardioversion History of cataract surgery History of chest tube placement During admission 04/05 - 04/28 for empyema History of ERCP 04/09/19. Glidescope #4. History of mitral valve repair 01/22/2017 History of thoracentesis 04/10/19 Status post coronary artery bypass grafting 15 YEARS AGO - 3 VESSELS Family History Father Cirrhosis Social History Preferred Language: Cymraes Communication Ability: Effective University Teacher Required: No Beliefs That Will Affect Care: None marital status: Current Living Situation: Prison Feels Safe at Home: Yes Smoking Status: Never smoker Tobacco Type: smokeless tobacco ; Second Hand Exposure: No ; Hx Alcohol Use: No Hx Substance Use: No Physical Exam Physical Exam: Temp Pulse Resp BP Pulse Ox 36.3 C L 86 20 107/69 100 01/21/20 12:48 01/21/20 15:46 01/21/20 15:46 01/21/20 15:46 01/21/20 15:46 Constitutional: WD/WN, vitals as above Respiratory: Mildly decreased breath sounds the bases bilateral Cardiovascular: Rate/Rhythm: + irregularly irregular Heart Sounds: + murmur (1/6 systolic murmur) Extremities: + edema (2+ bilateral lower extremity pitting edema) Gastrointestinal (Abdomen): normal bowel sounds, soft, nontender, no hepatosplenomegaly Neurologic: PERRL, EOMI, accommodation nl, no face palsy, no dysarthria Results & Data ([facility]) Vital Signs (Past 12 Hours) Vital Signs Temp Pulse Pulse Resp BP BP Pulse Ox 01/21/20 15:46 86 20 107/69 100 01/21/20 14:46 100 01/21/20 14:44 103 H 20 107/62 100 01/21/20 13:12 101 H 14 100 01/21/20 12:48 36.3 C L 77 20 108/66 96 Laboratory Results Cardiac Enzymes 01/21/20 Range/Units 13:17 AST 20 (15-37) U/L CK-MB (CK-2) 2.6 (0.5-3.6) ng/ml Troponin I 0.052 H* (0-0.045) ng/ml Coagulation 01/21/20 01/21/20 Range/Units 13:17 14:41 PT Cancelled 40.1 H APTT Cancelled 37.8 H CBC 01/21/20 Range/Units 13:17 WBC 8.95 (4.8-10.8) K/uL RBC 4.33 L (4.7-6.1) M/uL Hgb 9.6 L (14.0-18.0) g/dL Hct 33.1 L (42-52) % Plt Count 292 (130-400) K/uL Neut # (Auto) 7.76 H (1.4-6.5) K/uL Lymph # (Auto) 0.44 L (1.2-3.4) K/uL [place] # (Auto) 0.66 H (0.11-0.59) K/uL Eos # (Auto) 0.05 (0-0.5) K/uL Baso # (Auto) 0.02 (0-0.2) K/uL Comprehensive Metabolic Panel 01/21/20 Range/Units 13:17 Sodium 140 (136-145) mmol/L Potassium 4.3 (3.5-5.1) mmol/L Chloride 104 (98-107) mmol/L Carbon Dioxide 30 (21-32) mmol/L BUN 59 H (7-18) mg/dl Creatinine 1.56 H (0.6-1.4) mg/dl Glucose 192 H (70-99) mg/dl Calcium 8.5 (8.5-10.1) mg/dl AST 20 (15-37) U/L ALT 22 (12-78) U/L Alkaline Phosphatase 110 (45-117) U/L Total Protein 7.4 (6.4-8.2) gm/dl Albumin 2.7 L (3.4-5.0) gm/dl Intake and Output 01/21/20 01/21/20 01/21/20 06:59 14:59 22:59 Output Total 275 / 275 Balance -275 / -275 Output: Urine 275 / 275
[2020-01-21] MEDS ORDERED: ACETAMINOPHEN 325 MG TAB PO PRN (16:37)
[2020-01-21] MEDS ORDERED: ALBUMIN 25% 50 ML IV ONE (16:37)
--- NOTE | 2020-01-21 16:40 | History & Physical Report ---
Date of Service January 21, 2020 Assessment & Plan (1) Acute on chronic systolic (congestive) heart failure: History of chronic systolic heart failure, ischemic cardiomyopathy Pt is 75 y/o M with PMH chronic systolic CHF, ischemic cardiomyopathy EF: 30%, CAD s/p CABG in 2002, A-fib on Coumadin, DM II, H/O CVA, HTN, Aortic stenosis s/p TAVR with bioprosthetic valve in 2017, chronic respiratory failure on 2L O2 presented to ER with c/o SOB with exertion x 2 weeks. BLE edema x2 days. echo on 11/26/2019: EF: 30-35%, mild concentric LVH, apical septum and apical inferior wall akinetic, posterior wall at base and mid level is akinetic, all other segments hypokinetic, normal gradient prosthetic aortic valve, mild mitral regurgitation, mild tricuspid regurgitation In ER afebrile, P: 77-101, R: 20, BP: 108/66, 96% on RA up to 100% on 3L oxygen via NC, No leukocytosis, H/H: 9.6/33, BUN: 59, Cr: 1.56 (1.3-1.4 in 11/2019), BNP: 10,739 CXR: congestive changes, small bilateral effusions -In ER given Lasix 40 mg IV, patient starting to diurese -Monitor I's and O's, daily weights, low-sodium diet -Lasix 40 mg IV daily -Hold on additional echo at this time has had recent echo in 10/2019 -Continue spironolactone, hold torsemide -Cardiology consult, recommends dose albumin now (2) Elevated troponin: Troponin: 0.05. EKG afib, RBBB, inferior infarct pattern also seen on EKG 12/10/2019 INR: 4.1 No CP. Suspect demand ischemia -Repeat EKG in am -Will trend troponin -Hold on echo as had echo in 10/2019 -Continue aspirin, metoprolol, statin (3) Coronary artery disease: S/P CABG in 2002 -Continue aspirin, metoprolol, statin (4) Atrial fibrillation: Chronic A. fib on Coumadin INR: 4.1 -Continue metoprolol -Hold coumadin -INR in am (5) Chronic respiratory failure with hypoxia: On 2L oxygen chronic -continue supplemental oxygen (6) Anemia: H/H: 9.6/33. Recent hospital admission for GI bleed. Hgb stable since discharge. -Monitor H&H -Continue chronic PPI (7) Diabetes mellitus, type II: A1c: 7.4 on 11/26/2019 -Novolog sliding scale (8) Aortic stenosis: 2017 H/O TAVR complicated by rupture of the prosthetic valve, aortic valve replacement with bioprosthesis, mitral valve repair (9) Anxiety: -Continue buspirone DVT Prophylaxis -On Coumadin, Current INR supratherapeutic Full Code as per discussion with pt Follows with Dr Puri for routine care Pt was seen and care coordinated with Dr Stein. See addendum Admission and Anticipated Discharge Date Admission Date: January 21, 2020 History of Present Illness Chief Complaint: SOB Primary Care Provider: Barrera Puri MD Pt is 75 y/o M with PMH chronic systolic CHF, ischemic cardiomyopathy EF: 30%, CAD s/p CABG in 2002, A-fib on Coumadin, DM II, H/O CVA, HTN, Aortic stenosis s/p TAVR with bioprosthetic valve in 2016, chronic respiratory failure on 2L O2 presented to ER with c/o SOB with exertion x 2 weeks. Patient reports increased lower extremity edema x2 days. Patient on 2 L oxygen chronically and reports increased it to 3 L past couple of days with little improvement of shortness of breath. Patient reports has not been checking home weights. Reports decreased appetite and oral intake since surgery in 11/2019. he does state has been eating some prepackaged meals but not more than his baseline. Denies orthopnea or PND. Pt states has been having generalized weakness and hasn't been very active since being home. Denies fever/chills, diaphoresis, N/V/D/C, LUCERO, dizziness, syncope, vision changes, neck pain, CP, SOB, orthopnea, palpitations, cough, sore throat, choking, otalgia, rhinorrhea, abdominal pain, melena, hematochezia, paresthesias, rashes, urinary symptoms. Pt was recently admitted to [facility] 11/26/19 through 11/30/19 for cholelithiasis, cholangitis with choledocholithiasis, MSSA bacteremia. Had echo that did not show any vegetation. Was transferred to [facility] on 11/30/19 and discharged on 12/05/19. On 12/02, patient underwent EUS which showed evidence of multiple gallstones with purulence within the gallbladder consistent with cholecystitis and cholecystoduodenostomy ([id number]) was placed. EUS also remarkable for multiple duodenal erosions and esophageal biopsy was obtained (which showed evidence of chronic inflammation without dysplasia)." ID had recommended continuing IV Zosyn until 12/12/19 to treat MSSA bacteremia and cholecystitis. Patient was then discharged to [facility] on 12/05/19. Admitted 12/10/2019-12/13/2019 for GI bleed. EGD 12/11/2019 axios metal stent and duodenal bulb with ulceration of gallbladder wall. ERCP 2 stents removed from CBD. During that admission patient received 1 unit PRBC with hemoglobin 7.6 up to 9. His aspirin and Coumadin was resumed, Protonix 40 mg twice daily x2 months was recommended. H/O echo on 11/26/2019: EF: 30-35%, mild concentric LVH, apical septum and apical inferior wall akinetic, posterior wall at base and mid level is akinetic, all other segments hypokinetic, normal gradient prosthetic aortic valve, mild mitral regurgitation, mild tricuspid regurgitation Allergies Allergy/AdvReac Type Severity Reaction Status Date / Time lisinopril AdvReac Mild COUGH Verified 12/10/19 12:56 Home Medications Home Medications Medication Instructions Recorded Confirmed Type atorvastatin [Lipitor] 40 mg PO HS 04/05/19 01/21/20 History nitroglycerin [Nitrostat] 0.4 mg SUBLINGUAL UD PRN 04/05/19 01/21/20 History tamsulosin [Flomax] 0.4 mg PO QPM 04/05/19 01/21/20 History zolpidem [Ambien] 5 mg PO HS 04/05/19 01/21/20 History gabapentin [Neurontin] 100 mg PO TID 05/29/19 01/21/20 History metoprolol succinate [Toprol XL] 25 mg PO QAM 05/29/19 01/21/20 History buspirone 10 mg PO TID 11/25/19 01/21/20 History Humulin R Regular U-100 Insuln 0 sliding scale dose SUBCUT ACHS 12/08/19 01/21/20 History aspirin 81 mg PO QAM 12/08/19 01/21/20 History spironolactone [Aldactone] 25 mg PO BID 12/08/19 01/21/20 History torsemide 20 mg PO QDD 12/08/19 01/21/20 History torsemide 40 mg PO QAM 12/08/19 01/21/20 History acetaminophen [Tylenol] 325 mg PO Q4H PRN 12/10/19 01/21/20 History pantoprazole [Protonix] 40 mg PO BID 30 Days #60 tab 12/13/19 01/21/20 Rx warfarin [Coumadin] 0 mg PO UD 01/21/20 01/21/20 History Past Med/Surg History Medical History Anxiety Aortic stenosis s/p TAVR with MV replacement 12/2016. Atrial fibrillation ON WARFARIN - FOLLOWS W/ DR. KOWALSKI Cardiac murmur Severe mitral annular calcification per 03/2019 echo. Limited echo, valves not well visualized. H/O MV repair and AVR. CHF (congestive heart failure) Cholecystitis, chronic Chronic respiratory failure with hypoxia Chronic systolic (congestive) heart failure Coronary artery disease s/p CABG 2002 Degenerative disc disease Diabetes mellitus, type II IDDM Diabetic neuropathy Diverticular disease Dyslipidemia GERD (gastroesophageal reflux disease) History of recent pneumonia HOSPITALIZED 03/2019 [facility] History of renal calculi Hypertension Ischemic cardiomyopathy EF 25-30%, pt refused ICD. On anticoagulant therapy SOB (shortness of breath) on exertion Spinal stenosis Stroke 2 YEARS AGO - WEAKNESS LEFT SIDE Transient ischemic attack (TIA) 2016 Surgical History Difficult airway Glidescope #4 atraumatic attempt x 1, 04/05/19 History of aortic valve replacement History of TAVR complicated by prosthetic fracture and then underwent open surgical aortic valve replacement, mitral valve repair in 2017 History of cardiac cath 2 YEARS AGO - [facility] - NO STENTS/ANGIOPLASTY --> VALVE REPLACEMENT History of cardiac radiofrequency ablation For A flutter, 2006. History of cardioversion History of cataract surgery History of chest tube placement During admission 04/05 - 04/28 for empyema History of ERCP 04/09/19. Glidescope #4. History of mitral valve repair 01/22/2017 History of thoracentesis 04/10/19 Status post coronary artery bypass grafting 15 YEARS AGO - 3 [facility]ESSE[facility] Family History Father Cirrhosis Social History Preferred Language: [place] Communication Ability: Effective Clam Dredger Required: No Beliefs That Will Affect Care: None marital status: Current Living Situation: Spouse Other Information That Helps Us Care for You: No Feels Safe at Home: Yes Safety Concerns: Feels Safe At This Time Smoking Status: Never smoker Tobacco Type: smokeless tobacco ; Do You Dip or Chew Tobacco: No ; Second Hand Exposure: No ; Tobacco Cessation Education Requested by Patient: No Hx Alcohol Use: No Hx Substance Use: No Review of Systems Review of Systems: All systems reviewed & are unremarkable except as noted in HPI & below Physical Exam Physical Exam: General: no acute distress, WDWN Head: normocephalic, atraumatic Eyes: PERRL, EOM's intact, conjunctiva non-injected, anicteric ENT: normal inspection external ears, nose, mucous membranes moist Neck: supple, trachea midline, non-tender Lungs: no respiratory distress at rest on 3L oxygen via NC, +faint rales at bases and diminished breath sounds CV: irregularly irregular, +systolic murmur, rate 92, 2-3+ pitting pretibial edema Abd: normal BS, +ecchymosis lower abdomen, soft, non-tender Ext: no cyanosis, no calf tenderness Neuro: A&O x 3, no focal deficits noted, normal affect Skin: warm, dry Results & Data Results & Data ([facility]) Vital Signs (Past 12 Hours) Vital Signs Temp Pulse Pulse Resp BP BP Pulse Ox 01/21/20 16:18 36.5 C 96 H 19 99/60 L 100 01/21/20 15:46 86 20 107/69 100 01/21/20 14:46 100 01/21/20 14:44 103 H 20 107/62 100 01/21/20 13:12 101 H 14 100 01/21/20 12:48 36.3 C L 77 20 108/66 96 Laboratory Results Short CBC 01/21/20 Range/Units 13:17 WBC 8.95 (4.8-10.8) K/uL Hgb 9.6 L (14.0-18.0) g/dL Hct 33.1 L (42-52) % Plt Count 292 (130-400) K/uL BMP 01/21/20 13:17 Sodium 140 Potassium 4.3 Chloride 104 Carbon Dioxide 30 BUN 59 H Creatinine 1.56 H Glucose 192 H Calcium 8.5 Cardiac Enzymes 01/21/20 Range/Units 13:17 Total Creatine Kinase 40 (39-308) U/L CK-MB (CK-2) 2.6 (0.5-3.6) ng/ml Troponin I 0.052 H* (0-0.045) ng/ml Liver Function 01/21/20 Range/Units 13:17 Total Bilirubin 0.6 (0.2-1) mg/dl AST 20 (15-37) U/L ALT 22 (12-78) U/L Alkaline Phosphatase 110 (45-117) U/L Albumin 2.7 L (3.4-5.0) gm/dl Diagnostic Findings CXR: IMPRESSION: Congestive heart failure. Small bilateral pleural effusions. ECG Rate (beats per minute): 99 Rhythm: atrial fibrillation Findings: + Q waves (Inferior) and + RBBB Additional Comments: inferior infarct pattern seen on ekg 12/10/2019 Supervising Physician Co-Signing Physician Notes I have seen and examined the patient and have discussed the case with the provider above. I agree with the assessment and plan as stated. 75 yo M presented with acute on chronic systolic heart failure. Reported increasing swelling in legs and 4lb weight gain. Physical exam as above with crackles at bilateral bases. He is around baseline oxygen status, reporting use of 2-3 LPM of supplemental oxygen at home. Lasix and albumin started and patient is starting to diurese. Appreciate cardiology recommendations. DO Emil
[2020-01-21] MEDS ORDERED: NITROGLYCERIN SL 0.4 MG/TAB TAB SL PRN (16:58)
[2020-01-21] MEDS ORDERED: DEXTROSE 50% 50 ML SYRINGE IV PRN (17:23)
[2020-01-21] MEDS ORDERED: CARBOHYDRATES FOR HYPOGLYCEMIA PO PRN (17:23)
[2020-01-21] MEDS ORDERED: GLUCOSE 40% GEL 15 GM TUBE PO PRN (17:23)
[2020-01-21] MEDS ORDERED: GLUCAGON FOR INJ 1 MG VIAL SQ PRN (17:23)
[2020-01-21] MEDS ORDERED: GLUCOSE 10 TABS/TUBE PO PRN (17:23)
[2020-01-21] MEDS: SPIRONOLACTONE 25 MG TAB PO SCH (18:27)
[2020-01-21] MEDS: ATORVASTATIN 40 MG TAB PO SCH (20:26)
[2020-01-21] MEDS: TAMSULOSIN HCL 0.4 MG CAP PO SCH (20:27)
[2020-01-21] MEDS: GABAPENTIN 100 MG CAP PO SCH (20:27)
[2020-01-21] MEDS: INSULIN ASPART 100 UNITS/ML 3 ML PEN SC SCH (20:28)
[2020-01-22] MEDS: ZOLPIDEM TARTRATE 5 MG TAB PO PRN (00:21)
[2020-01-22 07:06] LABS: Hematocrit (blood only) 31.8 % (42-52); Hemoglobin 9.3 g/dL (14.0-18.0); Mean Corpuscular Hemoglobin 22.4 pg (25-34); Mean Corpuscular Hgb Conc 29.2 g/dL (32-36); Mean Corpuscular Volume 76.6 fL (80-100); Mean Platelet Volume 9.6 fL (7.4-10.4); Platelet Count 264 K/uL (130-400); RDW Coefficient of Variation 19.5 % (11.5-14.5); RDW Standard Deviation 54.9 fL (36.4-46.3); Red Blood Count 4.15 M/uL (4.7-6.1); White Blood Count 8.57 K/uL (4.8-10.8)
[2020-01-22 07:25] LABS: INR 4.4 (0.9-1.1); Prothrombin Time 42.9 Seconds (9.0-12.0)
[2020-01-22 07:41] LABS: BUN Creatinine Ratio 39.1 (10-20); Calcium 8.8 mg/dl (8.5-10.1); Creatinine Clr Calc Pharmacy 47.4 ml/min; Est GFR (African American) 57.1; Est GFR (Non-African American) 49.2; Potassium 4.2 mmol/L (3.5-5.1)
[2020-01-22] MEDS: METOPROLOL SUCC 25MG EXT REL TAB PO SCH (08:24)
[2020-01-22] MEDS: SPIRONOLACTONE 25 MG TAB PO SCH ×2 (08:24→18:10)
[2020-01-22] MEDS: GABAPENTIN 100 MG CAP PO SCH ×3 (08:24→19:30)
[2020-01-22] MEDS: INSULIN ASPART 100 UNITS/ML 3 ML PEN SC SCH ×4 (08:25→20:44)
[2020-01-22] MEDS: PANTOprazole 40 MG TAB PO SCH ×2 (08:25→17:01)
[2020-01-22] MEDS: ASPIRIN 81 MG ECTAB PO SCH (08:25)
--- NOTE | 2020-01-22 08:41 | Hospitalist Progress Note ---
Date of Service January 22, 2020 Assessment & Plan (1) Acute on chronic systolic (congestive) heart failure: History of chronic systolic heart failure, ischemic cardiomyopathy Pt is 75 y/o M with PMH chronic systolic CHF, ischemic cardiomyopathy EF: 30%, CAD s/p CABG in 2002, A-fib on Coumadin, DM II, H/O CVA, HTN, Aortic stenosis s/p TAVR with bioprosthetic valve in 2017, chronic respiratory failure on 2L O2 presented to ER with c/o SOB with exertion x 2 weeks. BLE edema x2 days. Echo on 11/26/2019: EF: 30-35%, mild concentric LVH, apical septum and apical inferior wall akinetic, posterior wall at base and mid level is akinetic, all other segments hypokinetic, normal gradient prosthetic aortic valve, mild mitral regurgitation, mild tricuspid regurgitation In ER afebrile, P: 77-101, R: 20, BP: 108/66, 96% on RA up to 100% on 3L oxygen via NC, No leukocytosis, H/H: 9.6/33, BUN: 59, Cr: 1.56 (1.3-1.4 in 11/2019), BNP: 10,739 CXR: congestive changes, small bilateral effusions -In ER given Lasix 40 mg IV, cont. today w/ lasix and albumin -Monitor I's and O's, daily weights, low-sodium diet -Lasix 40 mg IV daily -Hold on additional echo at this time has had recent echo in 10/2019 -Continue spironolactone, hold torsemide -Cardiology consulted, recommends dose albumin on admission and today w/ lasix (2) Elevated troponin: Troponin: 0.05. EKG afib, RBBB, inferior infarct pattern also seen on EKG 12/10/2019 INR: 4.1 No CP. Suspect demand ischemia -Repeat EKG in am -Will trend troponin -Hold on echo as had echo in 10/2019 -Continue aspirin, metoprolol, statin (3) Coronary artery disease: S/P CABG in 2002 -Continue aspirin, metoprolol, statin (4) Atrial fibrillation: Chronic A. fib on Coumadin INR: 4.1 on admission, 4.4 now -Continue metoprolol -Hold coumadin -monitor INR (5) Chronic respiratory failure with hypoxia: On 2-3L oxygen chronic -continue supplemental oxygen (6) Anemia: H/H: 9.6/33. Recent hospital admission for GI bleed. Hgb stable since discharge. -Monitor H&H -Continue chronic PPI (7) Diabetes mellitus, type II: A1c: 7.4 on 11/26/2019 -Novolog sliding scale (8) Aortic stenosis: 2017 H/O TAVR complicated by rupture of the prosthetic valve, aortic valve replacement with bioprosthesis, mitral valve repair (9) CKD (chronic kidney disease): MARISA on CKD stage III Baseline about 1.3-1.4 Cr 1.56 on admission, now down to 1.39 Cont. to monitor -improving w/ lasix and albumin (10) Anxiety: -Continue buspirone DVT Prophylaxis -On Coumadin, Current INR supratherapeutic Full Code as per discussion with pt Follows with Dr Puri for routine care Admission and Anticipated Discharge Date Admission Date: January 21, 2020 Subjective Patient is lying in bed, in no acute distress, on nasal cannula. His symptoms only somewhat improved with furosemide 40 mg yesterday, and furosemide plus albumin again this morning. Patient denies any fevers, chills, chest pain, abdominal pain, nausea or vomiting. A. fib with right bundle branch on telemetry. INR still elevated above 4. Review of Systems Review of Systems: All systems reviewed & are unremarkable except as noted in HPI & below Constitutional: no fever and no chills Respiratory: + dyspnea (on NC); no cough Cardiovascular: + palpitations and + edema; no chest pain Gastrointestinal: no abdominal pain, no nausea and no vomiting Physical Exam Physical Exam: General: Elderly male, lying in bed, in no acute distress, WDWN, on suppl.O2 via NC Head: normocephalic, atraumatic Eyes: PERRL, EOM's intact, conjunctiva non-injected, anicteric ENT: normal inspection external ears, nose, mucous membranes moist Neck: supple, +JVD Lungs: no respiratory distress, oxygen via NC, +faint rales at bases and diminished breath sounds CV: irregularly irregular, +systolic murmur, 2+ pitting pretibial edema Abd: normal BS, +ecchymosis lower abdomen, soft, non-tender Ext: no cyanosis, no calf tenderness, moves extremities spontaneously Neuro: A&O x 3, speech fluent, no facial asymmetry, no focal deficits noted, normal affect, moves extremities spontaneously Skin: warm, dry Results & Data Results & Data ([facility]) Vital Signs (Past 12 Hours) Vital Signs Temp Pulse Pulse Resp BP BP Pulse Ox 01/22/20 07:12 36.5 C 105 H 19 110/69 95 01/22/20 04:25 36.4 C L 98 H 16 97/66 L 98 01/22/20 00:15 92/58 L 01/22/20 00:00 104 H 01/21/20 22:32 36.3 C L 115 H 20 85/55 L 99 Laboratory Results 01/22/20 01/22/20 01/22/20 Range/Units 06:52 06:52 06:52 WBC 8.57 (4.8-10.8) K/uL RBC 4.15 L (4.7-6.1) M/uL Hgb 9.3 L (14.0-18.0) g/dL Hct 31.8 L (42-52) % MCV 76.6 L (80-100) fL MCH 22.4 L (25-34) pg MCHC 29.2 L (32-36) g/dL RDW Std Deviation 54.9 H (36.4-46.3) fL RDW Coeff of Abi 19.5 H (11.5-14.5) % Plt Count 264 (130-400) K/uL MPV 9.6 (7.4-10.4) fL Immature Gran % (Auto) % Neut % (Auto) % Lymph % (Auto) % [place] % (Auto) % Eos % (Auto) % Baso % (Auto) % Immature Gran # (Auto) (0.00-0.02) K/uL Neut # (Auto) (1.4-6.5) K/uL Lymph # (Auto) (1.2-3.4) K/uL [place] # (Auto) (0.11-0.59) K/uL Eos # (Auto) (0-0.5) K/uL Baso # (Auto) (0-0.2) K/uL ESR (0-14) mm/hr PT 42.9 H INR 4.4 H APTT PTT Ratio Sodium 140 (136-145) mmol/L Potassium 4.2 (3.5-5.1) mmol/L Chloride 105 (98-107) mmol/L Carbon Dioxide 31 (21-32) mmol/L Anion Gap 4.0 (3-11) BUN 54 H (7-18) mg/dl Creatinine 1.39 (0.6-1.4) mg/dl Est Cr Clr Drug Dosing 47.4 Est GFR ( Amer) 57.1 Est GFR (Non-Af Amer) 49.2 BUN/Creatinine Ratio 39.1 H (10-20) Glucose 115 H (70-99) mg/dl POC Glucose (70-99) mg/dl Calcium 8.8 (8.5-10.1) mg/dl Ferritin (8-388) ng/ml Total Bilirubin (0.2-1) mg/dl AST (15-37) U/L ALT (12-78) U/L Alkaline Phosphatase (45-117) U/L Total Creatine Kinase (39-308) U/L CK-MB (CK-2) (0.5-3.6) ng/ml CK/CKMB % Calc (0-3.0) Troponin I (0-0.045) ng/ml C-Reactive Protein (0-0.29) mg/dl NT-Pro-B Natriuret Pep (0-900) pg/ml Total Protein (6.4-8.2) gm/dl Albumin (3.4-5.0) gm/dl Globulin (2.5-4.0) gm/dl Albumin/Globulin Ratio (0.9-2) Lipase (73-393) U/L 01/22/20 01/21/20 01/21/20 Range/Units 00:41 20:17 18:49 WBC (4.8-10.8) K/uL RBC (4.7-6.1) M/uL Hgb (14.0-18.0) g/dL Hct (42-52) % MCV (80-100) fL MCH (25-34) pg MCHC (32-36) g/dL RDW Std Deviation (36.4-46.3) fL RDW Coeff of Abi (11.5-14.5) % Plt Count (130-400) K/uL MPV (7.4-10.4) fL Immature Gran % (Auto) % Neut % (Auto) % Lymph % (Auto) % [place] % (Auto) % Eos % (Auto) % Baso % (Auto) % Immature Gran # (Auto) (0.00-0.02) K/uL Neut # (Auto) (1.4-6.5) K/uL Lymph # (Auto) (1.2-3.4) K/uL [place] # (Auto) (0.11-0.59) K/uL Eos # (Auto) (0-0.5) K/uL Baso # (Auto) (0-0.2) K/uL ESR (0-14) mm/hr PT INR APTT PTT Ratio Sodium (136-145) mmol/L Potassium (3.5-5.1) mmol/L Chloride (98-107) mmol/L Carbon Dioxide (21-32) mmol/L Anion Gap (3-11) BUN (7-18) mg/dl Creatinine (0.6-1.4) mg/dl Est Cr Clr Drug Dosing Est GFR ( Amer) Est GFR (Non-Af Amer) BUN/Creatinine Ratio (10-20) Glucose (70-99) mg/dl POC Glucose 173 H (70-99) mg/dl Calcium (8.5-10.1) mg/dl Ferritin (8-388) ng/ml Total Bilirubin (0.2-1) mg/dl AST (15-37) U/L ALT (12-78) U/L Alkaline Phosphatase (45-117) U/L Total Creatine Kinase (39-308) U/L CK-MB (CK-2) (0.5-3.6) ng/ml CK/CKMB % Calc (0-3.0) Troponin I 0.056 H* 0.059 H* (0-0.045) ng/ml C-Reactive Protein (0-0.29) mg/dl NT-Pro-B Natriuret Pep (0-900) pg/ml Total Protein (6.4-8.2) gm/dl Albumin (3.4-5.0) gm/dl Globulin (2.5-4.0) gm/dl Albumin/Globulin Ratio (0.9-2) Lipase (73-393) U/L 01/21/20 01/21/20 01/21/20 Range/Units 16:26 14:41 13:17 WBC (4.8-10.8) K/uL RBC (4.7-6.1) M/uL Hgb (14.0-18.0) g/dL Hct (42-52) % MCV (80-100) fL MCH (25-34) pg MCHC (32-36) g/dL RDW Std Deviation (36.4-46.3) fL RDW Coeff of Abi (11.5-14.5) % Plt Count (130-400) K/uL MPV (7.4-10.4) fL Immature Gran % (Auto) % Neut % (Auto) % Lymph % (Auto) % [place] % (Auto) % Eos % (Auto) % Baso % (Auto) % Immature Gran # (Auto) (0.00-0.02) K/uL Neut # (Auto) (1.4-6.5) K/uL Lymph # (Auto) (1.2-3.4) K/uL [place] # (Auto) (0.11-0.59) K/uL Eos # (Auto) (0-0.5) K/uL Baso # (Auto) (0-0.2) K/uL ESR (0-14) mm/hr PT 40.1 H INR 4.1 H APTT 37.8 H PTT Ratio 1.4 Sodium 140 (136-145) mmol/L Potassium 4.3 (3.5-5.1) mmol/L Chloride 104 (98-107) mmol/L Carbon Dioxide 30 (21-32) mmol/L Anion Gap 6.0 (3-11) BUN 59 H (7-18) mg/dl Creatinine 1.56 H (0.6-1.4) mg/dl Est Cr Clr Drug Dosing Not Reportable Est GFR ( Amer) 49.6 Est GFR (Non-Af Amer) 42.8 BUN/Creatinine Ratio 38.1 H (10-20) Glucose 192 H (70-99) mg/dl POC Glucose 147 H (70-99) mg/dl Calcium 8.5 (8.5-10.1) mg/dl Ferritin 58.4 (8-388) ng/ml Total Bilirubin 0.6 (0.2-1) mg/dl AST 20 (15-37) U/L ALT 22 (12-78) U/L Alkaline Phosphatase 110 (45-117) U/L Total Creatine Kinase 40 (39-308) U/L CK-MB (CK-2) 2.6 (0.5-3.6) ng/ml CK/CKMB % Calc 6.5 H (0-3.0) Troponin I 0.052 H* (0-0.045) ng/ml C-Reactive Protein 0.93 H (0-0.29) mg/dl NT-Pro-B Natriuret Pep 00966 H (0-900) pg/ml Total Protein 7.4 (6.4-8.2) gm/dl Albumin 2.7 L (3.4-5.0) gm/dl Globulin 4.7 H (2.5-4.0) gm/dl Albumin/Globulin Ratio 0.6 L (0.9-2) Lipase 171 (73-393) U/L 01/21/20 01/21/20 01/21/20 Range/Units 13:17 13:17 13:17 WBC 8.95 (4.8-10.8) K/uL RBC 4.33 L (4.7-6.1) M/uL Hgb 9.6 L (14.0-18.0) g/dL Hct 33.1 L (42-52) % MCV 76.4 L (80-100) fL MCH 22.2 L (25-34) pg MCHC 29.0 L (32-36) g/dL RDW Std Deviation 54.6 H (36.4-46.3) fL RDW Coeff of Abi 19.6 H (11.5-14.5) % Plt Count 292 (130-400) K/uL MPV 9.9 (7.4-10.4) fL Immature Gran % (Auto) 0.2 % Neut % (Auto) 86.7 % Lymph % (Auto) 4.9 % [place] % (Auto) 7.4 % Eos % (Auto) 0.6 % Baso % (Auto) 0.2 % Immature Gran # (Auto) 0.02 (0.00-0.02) K/uL Neut # (Auto) 7.76 H (1.4-6.5) K/uL Lymph # (Auto) 0.44 L (1.2-3.4) K/uL [place] # (Auto) 0.66 H (0.11-0.59) K/uL Eos # (Auto) 0.05 (0-0.5) K/uL Baso # (Auto) 0.02 (0-0.2) K/uL ESR 26 H (0-14) mm/hr PT Cancelled INR Cancelled APTT Cancelled PTT Ratio Cancelled Sodium (136-145) mmol/L Potassium (3.5-5.1) mmol/L Chloride (98-107) mmol/L Carbon Dioxide (21-32) mmol/L Anion Gap (3-11) BUN (7-18) mg/dl Creatinine (0.6-1.4) mg/dl Est Cr Clr Drug Dosing Est GFR ( Amer) Est GFR (Non-Af Amer) BUN/Creatinine Ratio (10-20) Glucose (70-99) mg/dl POC Glucose (70-99) mg/dl Calcium (8.5-10.1) mg/dl Ferritin (8-388) ng/ml Total Bilirubin (0.2-1) mg/dl AST (15-37) U/L ALT (12-78) U/L Alkaline Phosphatase (45-117) U/L Total Creatine Kinase (39-308) U/L CK-MB (CK-2) (0.5-3.6) ng/ml CK/CKMB % Calc (0-3.0) Troponin I (0-0.045) ng/ml C-Reactive Protein (0-0.29) mg/dl NT-Pro-B Natriuret Pep (0-900) pg/ml Total Protein (6.4-8.2) gm/dl Albumin (3.4-5.0) gm/dl Globulin (2.5-4.0) gm/dl Albumin/Globulin Ratio (0.9-2) Lipase (73-393) U/L Medications Administered Current Inpatient Medications Acetaminophen (Tylenol) 650 mg PO Q4H PRN PRN Reason: Pain or Fever Stop: 02/20/20 16:36 Aspirin ([facility]rin Ectab) [facility] [place]: 02/21/20 08:59 Last Admin: 01/22/20 08:25 Dose: 81 mg Documented by: Atorvastatin Calcium (Lipitor) 40 mg PO HS [facility] Stop: 02/20/20 20:59 Last Admin: 01/21/20 20:26 Dose: 40 mg Documented by: Buspirone HCl (Buspar) 10 mg PO TID [facility] Stop: 02/20/20 20:59 Last Admin: 01/22/20 08:25 Dose: 10 mg Documented by: Dextrose (Dextrose 50%) 25 - 50 ml IV UD PRN; Protocol PRN Reason: Hypoglycemia Protocol Stop: 02/20/20 17:22 Gabapentin (Neurontin) 100 mg PO TID [facility] Stop: 02/20/20 20:59 Last Admin: 01/22/20 08:24 Dose: 100 mg Documented by: Glucagon (Glucagen) 1 mg SQ UD PRN; Protocol PRN Reason: Hypoglycemia Protocol Stop: 02/20/20 17:22 Glucose (Dex4 Glucose) 4 - 8 tabs PO UD PRN; Protocol PRN Reason: Hypoglycemia Protocol Stop: 02/20/20 17:22 Glucose (Glucose 40%) 15 - 30 gm PO UD PRN; Protocol PRN Reason: Hypoglycemia Protocol Stop: 02/20/20 17:22 Furosemide 40 mg/ Albumin (Human) 54 mls @ 54 mls/hr IV .CALL PROVIDER [facility] Stop: 01/25/20 08:29 Insulin Aspart (Novolog Flexpen) 0 units SC ACHS [facility] Stop: 02/20/20 20:59 Last Admin: 01/22/20 08:25 Dose: 9 units Documented by: Metoprolol Succinate (Toprol Xl) 25 mg PO QAM [facility] Stop: 02/21/20 08:59 Last Admin: 01/22/20 08:24 Dose: 25 mg Documented by: Miscellaneous (Carbohydrates For Hypoglycemia) 15 - 30 gm PO UD PRN PRN Reason: Hypoglycemia Protocol Stop: 02/20/20 17:22 Nitroglycerin (Nitrostat) 0.4 mg SL UD PRN PRN Reason: Chest Pain Stop: 02/20/20 16:57 Pantoprazole Sodium (Protonix) 40 mg PO BID@0730,1630 [facility] Stop: 02/21/20 07:29 Last Admin: 01/22/20 08:25 Dose: 40 mg Documented by: Spironolactone (Aldactone) 25 mg PO BID17 [facility] Stop: 02/20/20 17:59 Last Admin: 01/22/20 08:24 Dose: 25 mg Documented by: Tamsulosin HCl (Flomax) 0.4 mg PO QPM [facility] Stop: 02/20/20 20:59 Last Admin: 01/21/20 20:27 Dose: 0.4 mg Documented by: Zolpidem Tartrate (Ambien) 5 mg PO HS PRN PRN Reason: Insomnia Stop: 02/20/20 20:59 Last Admin: 01/22/20 00:21 Dose: 5 mg Documented by: (1) Anemia Anemia type: unspecified type Qualified Code(s): D64.9 - Anemia, unspecified (2) CKD (chronic kidney disease) Chronic kidney disease stage: unspecified stage Qualified Code(s): N18.9 - Chronic kidney disease, unspecified
[2020-01-22] MEDS ORDERED: FUROSEMIDE 40 MG in SYRINGE 0 ML IV SCH (09:00)
[2020-01-22] MEDS ORDERED: ALBUMIN 25% 50 ML with FUROSEMIDE 40 MG IV ONE (09:00)
--- NOTE | 2020-01-22 15:34 | Electrocardiogram Report ---
Test Reason : Blood Pressure : / mmHG Vent. Rate : 100 BPM Atrial Rate : 441 BPM P-R Int : 000 ms QRS Dur : 156 ms QT Int : 408 ms P-R-T Axes : 000 267 030 degrees QTc Int : 526 ms Atrial fibrillation with premature ventricular or aberrantly conducted complexes Right bundle branch block Inferior infarct (cited on or before 10-DEC-2019) Abnormal ECG When compared with ECG of 21-JAN-2020 13:10, T wave inversion more evident in Anterior leads Confirmed by Daryn Bettencourt ([id number]) on 01/22/2020 3:33:54 PM Referred By: Barrera Puri Confirmed By:Rick Bettencourt
--- NOTE | 2020-01-22 17:20 | Cardiology Progress Note ---
Date of Service January 22, 2020 Assessment & Plan (1) Acute on chronic systolic (congestive) heart failure: Acute on chronic systolic heart failure due to ischemic cardiomyopathy h/o failed TAVR, with rescue surgical bio AVR, 2016 Stage III chronic kidney disease Chronic AF, on coumadin with coagulopathy Continue to hold Coumadin for INR 4.4. Had urinary retention, responded well to Chandler catheter when I had followed him in March,. Chandler replaced. Due to marginal blood pressure, hold off on further diuretics today, will administer 40 mg tomorrow, and reassess Creatinine trending toward improvement from 1.56 to 1.39 Subjective Domenico was seen in follow-up of shortness of breath. His symptoms marginally improved with furosemide 40 mg yesterday, and furosemide plus albumin again this morning. He had a postvoid residual of over 400 mL, prompting placement of a Chandler catheter, and he is urinating well. His leg edema is mildly improved. Telemetry reveals ongoing atrial fibrillation with right bundle branch block morphology, with a rate of 99 to 100 bpm. Blood pressure remains about the same in the high 90s which has been his baseline on previous admissions. Review of Systems Review of Systems: All systems reviewed & are unremarkable except as noted in HPI & below Physical Exam Physical Exam: Temp Pulse Resp BP Pulse Ox 36.4 C L 94 H 20 99/60 L 97 01/22/20 15:36 01/22/20 15:36 01/22/20 15:36 01/22/20 15:36 01/22/20 15:36 Constitutional: Chronically ill in appearance Respiratory: Mildly decreased breath sounds the bases Cardiovascular: Rate/Rhythm: + irregularly irregular Heart Sounds: no murmur Vessels: + JVD Extremities: + edema (1+ lower extreme edema, improved compared to 01/21/2020) Neurologic: PERRL, EOMI, accommodation nl, no face palsy, no dysarthria Results & Data Vital Signs (Past 12 Hours) Vital Signs Temp Pulse Resp BP BP Pulse Ox 01/22/20 15:36 36.4 C L 94 H 20 99/60 L 97 01/22/20 11:05 36.5 C 96 H 19 116/49 L 100 01/22/20 07:12 36.5 C 105 H 19 110/69 95 Laboratory Results Cardiac Enzymes 01/21/20 01/22/20 Range/Units 18:49 00:41 Troponin I 0.059 H* 0.056 H* (0-0.045) ng/ml Coagulation 01/22/20 Range/Units 06:52 PT 42.9 H (9.0-12.0) Seconds CBC 01/22/20 Range/Units 06:52 WBC 8.57 (4.8-10.8) K/uL RBC 4.15 L (4.7-6.1) M/uL Hgb 9.3 L (14.0-18.0) g/dL Hct 31.8 L (42-52) % Plt Count 264 (130-400) K/uL Comprehensive Metabolic Panel 01/22/20 Range/Units 06:52 Sodium 140 (136-145) mmol/L Potassium 4.2 (3.5-5.1) mmol/L Chloride 105 (98-107) mmol/L Carbon Dioxide 31 (21-32) mmol/L BUN 54 H (7-18) mg/dl Creatinine 1.39 (0.6-1.4) mg/dl Glucose 115 H (70-99) mg/dl Calcium 8.8 (8.5-10.1) mg/dl Intake and Output 01/22/20 01/22/20 01/22/20 06:59 14:59 22:59 Intake Total 474 / 474 Output Total 500 / 1075 750 / 750 Balance -500 / -1025 -276 / -276 Intake: IV 54 / 54 Albumin 25% 50 ml @ 54 mls/hr 54 / 54 IV TODAY@0900 ONE with Lasix 40 mg Rx#:[id number] Oral 420 / 420 Output: Urine 500 / 1075 500 / 500 Urine Amount (Catheter) 250 / 250 Chandler/Indwelling 250 / 250
[2020-01-22] MEDS ORDERED: POLYETHYLENE (MIRALAX) 17 GM PACK PO PRN (18:24)
[2020-01-22] MEDS: bisacodyL 5 MG TABEC PO PRN (19:29)
[2020-01-22] MEDS: TAMSULOSIN HCL 0.4 MG CAP PO SCH (19:29)
[2020-01-22] MEDS: ATORVASTATIN 40 MG TAB PO SCH (19:30)
[2020-01-23] MEDS: ZOLPIDEM TARTRATE 5 MG TAB PO PRN (00:28)
[2020-01-23 06:33] LABS: INR 2.6 (0.9-1.1); Prothrombin Time 25.6 Seconds (9.0-12.0)
[2020-01-23 06:59] LABS: BUN Creatinine Ratio 43.3 (10-20); Calcium 8.7 mg/dl (8.5-10.1); Creatinine Clr Calc Pharmacy 49.6 ml/min; Est GFR (African American) 60.2; Est GFR (Non-African American) 51.9; Magnesium 2.8 mg/dl (1.8-2.4); Potassium 4.5 mmol/L (3.5-5.1)
[2020-01-23] MEDS: METOPROLOL SUCC 25MG EXT REL TAB PO SCH (07:55)
[2020-01-23] MEDS: PANTOprazole 40 MG TAB PO SCH ×2 (07:55→16:19)
[2020-01-23] MEDS: GABAPENTIN 100 MG CAP PO SCH ×3 (07:55→20:43)
[2020-01-23] MEDS: SPIRONOLACTONE 25 MG TAB PO SCH ×2 (07:55→16:21)
[2020-01-23] MEDS: ASPIRIN 81 MG ECTAB PO SCH (07:55)
--- NOTE | 2020-01-23 07:59 | Hospitalist Progress Note ---
Date of Service January 23, 2020 Assessment & Plan (1) Acute on chronic systolic (congestive) heart failure: History of chronic systolic heart failure, ischemic cardiomyopathy Pt is 75 y/o M with PMH chronic systolic CHF, ischemic cardiomyopathy EF: 30%, CAD s/p CABG in 2002, A-fib on Coumadin, DM II, H/O CVA, HTN, Aortic stenosis s/p TAVR with bioprosthetic valve in 2017, chronic respiratory failure on 2L O2 presented to ER with c/o SOB with exertion x 2 weeks. BLE edema x2 days. Echo on 11/26/2019: EF: 30-35%, mild concentric LVH, apical septum and apical inferior wall akinetic, posterior wall at base and mid level is akinetic, all other segments hypokinetic, normal gradient prosthetic aortic valve, mild mitral regurgitation, mild tricuspid regurgitation In ER afebrile, P: 77-101, R: 20, BP: 108/66, 96% on RA up to 100% on 3L oxygen via NC, No leukocytosis, H/H: 9.6/33, BUN: 59, Cr: 1.56 (1.3-1.4 in 11/2019), BNP: 10,739 CXR: congestive changes, small bilateral effusions -In ER given Lasix 40 mg IV, added albumin -Monitor I's and O's, daily weights, low-sodium diet -Lasix 40 mg IV daily + IV albumin -Hold on additional echo at this time has had recent echo in 10/2019 -Continue spironolactone, hold torsemide -Cardiology consulted, appreciate their input - cont. 40 mg IV lasix this AM (2) Elevated troponin: Troponin: 0.05. EKG afib, RBBB, inferior infarct pattern also seen on EKG 12/10/2019 INR: 4.1 No CP. Suspect demand ischemia -monitor on tele -troponin peaked at 0.059 -Hold on echo as had echo in 10/2019 -Continue aspirin, metoprolol, statin -cardiology following (3) Coronary artery disease: S/P CABG in 2002 -Continue aspirin, metoprolol, statin (4) Atrial fibrillation: Chronic A. fib on Coumadin INR: 4.1 on admission, then 4.4 -now down to 2.6 -Continue metoprolol -plan to re-start coumadin -monitor INR (5) Chronic respiratory failure with hypoxia: On 2-3L oxygen chronic -continue supplemental oxygen (6) Anemia: H/H: 9.6/33. Recent hospital admission for GI bleed. Hgb stable since discharge. -Monitor H&H -Continue chronic PPI (7) Diabetes mellitus, type II: A1c: 7.4 on 11/26/2019 -Novolog sliding scale (8) Aortic stenosis: 2017 H/O TAVR complicated by rupture of the prosthetic valve, aortic valve replacement with bioprosthesis, mitral valve repair (9) CKD (chronic kidney disease): MARISA on CKD stage III Baseline about 1.3-1.4 Cr 1.56 on admission, now down to 1.33 Cont. to monitor -improved w/ lasix and albumin (10) Anxiety: -Continue buspirone DVT Prophylaxis -On Coumadin, Current INR therapeutic Full Code as per discussion with pt Follows with Dr Puri for routine care Admission and Anticipated Discharge Date Admission Date: January 21, 2020 Subjective Patient reports difficulty sleeping at night, currently also reports shortness of breath not much improved, and constipation today. Reports having shortness of breath even with mild exertion at home, says that even making about 5 steps. He is mostly not ambulatory at home. Patient received dose of 40 mg Lasix this a.m. Creatinine trending downward. Telemetry demonstrates atrial fibrillation with heart rate ranging from 90 to 100 bpm. INR has trended down to 2.6. Plan to restart coumadin. Review of Systems Review of Systems: All systems reviewed & are unremarkable except as noted in HPI & below Constitutional: no fever and no chills Respiratory: + dyspnea (on NC); no cough Cardiovascular: + palpitations and + edema; no chest pain Gastrointestinal: + constipation; no abdominal pain, no nausea and no vomiting Physical Exam Physical Exam: General: Elderly male, lying in bed, in no acute distress, WDWN, on suppl.O2 via NC (3-4L) Head: normocephalic, atraumatic Eyes: PERRL, EOM's intact, conjunctiva non-injected, anicteric ENT: normal inspection external ears, nose, mucous membranes moist Neck: supple, +JVD Lungs: no respiratory distress, oxygen via NC, +faint rales at bases and diminished breath sounds CV: irregularly irregular, +systolic murmur, 1-2+ pitting pretibial edema Abd: normal BS, +ecchymosis lower abdomen, soft, non-tender Ext: no cyanosis, no calf tenderness, moves extremities spontaneously Neuro: A&O x 3, speech fluent, no facial asymmetry, no focal deficits noted, normal affect, moves extremities spontaneously Skin: warm, dry Results & Data Results & Data ([facility]) Vital Signs (Past 12 Hours) Vital Signs Temp Pulse Resp BP Pulse Ox 01/23/20 07:23 36.8 C 96 H 22 122/64 98 01/23/20 03:35 36.5 C 108 H 19 117/78 97 01/22/20 23:30 36.8 C 103 H 17 120/73 97 Laboratory Results 01/23/20 01/23/20 01/23/20 Range/Units 07:21 05:46 05:46 PT 25.6 H (9.0-12.0) Seconds INR 2.6 H (0.9-1.1) Sodium 141 (136-145) mmol/L Potassium 4.5 (3.5-5.1) mmol/L Chloride 105 (98-107) mmol/L Carbon Dioxide 31 (21-32) mmol/L Anion Gap 5.0 (3-11) BUN 58 H (7-18) mg/dl Creatinine 1.33 (0.6-1.4) mg/dl Est Cr Clr Drug Dosing 49.6 ml/min Est GFR ( Amer) 60.2 Est GFR (Non-Af Amer) 51.9 BUN/Creatinine Ratio 43.3 H (10-20) Glucose 145 H (70-99) mg/dl POC Glucose 167 H (70-99) mg/dl Calcium 8.7 (8.5-10.1) mg/dl Magnesium 2.8 H (1.8-2.4) mg/dl 01/22/20 01/22/20 01/22/20 Range/Units 20:19 16:13 11:54 PT (9.0-12.0) Seconds INR (0.9-1.1) Sodium (136-145) mmol/L Potassium (3.5-5.1) mmol/L Chloride (98-107) mmol/L Carbon Dioxide (21-32) mmol/L Anion Gap (3-11) BUN (7-18) mg/dl Creatinine (0.6-1.4) mg/dl Est Cr Clr Drug Dosing ml/min Est GFR ( Amer) Est GFR (Non-Af Amer) BUN/Creatinine Ratio (10-20) Glucose (70-99) mg/dl POC Glucose 132 H 168 H 198 H (70-99) mg/dl Calcium (8.5-10.1) mg/dl Magnesium (1.8-2.4) mg/dl 01/22/20 Range/Units 06:52 PT (9.0-12.0) Seconds INR (0.9-1.1) Sodium (136-145) mmol/L Potassium (3.5-5.1) mmol/L Chloride (98-107) mmol/L Carbon Dioxide (21-32) mmol/L Anion Gap (3-11) BUN (7-18) mg/dl Creatinine (0.6-1.4) mg/dl Est Cr Clr Drug Dosing ml/min Est GFR ( Amer) Est GFR (Non-Af Amer) BUN/Creatinine Ratio (10-20) Glucose (70-99) mg/dl POC Glucose (70-99) mg/dl Calcium (8.5-10.1) mg/dl Magnesium 2.9 H (1.8-2.4) mg/dl Medications Administered Current Inpatient Medications Acetaminophen (Tylenol) 650 mg PO Q4H PRN PRN Reason: Pain or Fever Stop: 02/20/20 16:36 Aspirin ([facility]rin Ectab) [facility] Stop: 02/21/20 08:59 Last Admin: 01/22/20 08:25 Dose: 81 mg Documented by: Atorvastatin Calcium (Lipitor) 40 mg PO [facility] Stop: 02/20/20 20:59 Last Admin: 01/22/20 19:30 Dose: 40 mg Documented by: Bisacodyl (Dulcolax) 5 mg PO BID PRN PRN Reason: Constipation Stop: 02/21/20 18:23 Last Admin: 01/22/20 19:29 Dose: 5 mg Documented by: Bisacodyl (Dulcolax) 10 mg AR DAILY PRN PRN Reason: Constipation Stop: 02/21/20 18:24 Buspirone HCl (Buspar) 10 mg PO TID [facility] Stop: 02/20/20 20:59 Last Admin: 01/22/20 19:30 Dose: 10 mg Documented by: Dextrose (Dextrose 50%) 25 - 50 ml IV UD PRN; Protocol PRN Reason: Hypoglycemia Protocol Stop: 02/20/20 17:22 Gabapentin (Neurontin) 100 mg PO TID [facility] Stop: 02/20/20 20:59 Last Admin: 01/22/20 19:30 Dose: 100 mg Documented by: Glucagon (Glucagen) 1 mg SQ UD PRN; Protocol PRN Reason: Hypoglycemia Protocol Stop: 02/20/20 17:22 Glucose (Dex4 Glucose) 4 - 8 tabs PO UD PRN; Protocol PRN Reason: Hypoglycemia Protocol Stop: 02/20/20 17:22 Glucose (Glucose 40%) 15 - 30 gm PO UD PRN; Protocol PRN Reason: Hypoglycemia Protocol Stop: 02/20/20 17:22 Furosemide 40 mg/ Syringe 4 mls @ 4 mls/min IV DAILY [facility] Stop: 02/22/20 08:59 Insulin Aspart (Novolog Flexpen) 0 units SC ACHS [facility] Stop: 02/20/20 20:59 Last Admin: 01/22/20 20:44 Dose: Not Given Documented by: Metoprolol Succinate (Toprol Xl) 25 mg PO QAM [facility] Stop: 02/21/20 08:59 Last Admin: 01/22/20 08:24 Dose: 25 mg Documented by: Miscellaneous (Carbohydrates For Hypoglycemia) 15 - 30 gm PO UD PRN PRN Reason: Hypoglycemia Protocol Stop: 02/20/20 17:22 Nitroglycerin (Nitrostat) 0.4 mg SL UD PRN PRN Reason: Chest Pain Stop: 02/20/20 16:57 Pantoprazole Sodium (Protonix) 40 mg PO BID@0730,1630 [facility] Stop: 02/21/20 07:29 Last Admin: 01/22/20 17:01 Dose: 40 mg Documented by: Polyethylene Glycol (Miralax Powder Packet) 17 gm PO BID PRN PRN Reason: Constipation Stop: 02/21/20 18:23 Spironolactone (Aldactone) 25 mg PO BID17 [facility] Stop: 02/20/20 17:59 Last Admin: 01/22/20 18:10 Dose: 25 mg Documented by: Tamsulosin HCl (Flomax) 0.4 mg PO QPM [facility] Stop: 02/20/20 20:59 Last Admin: 01/22/20 19:29 Dose: 0.4 mg Documented by: Zolpidem Tartrate (Ambien) 5 mg PO HS PRN PRN Reason: Insomnia Stop: 02/20/20 20:59 Last Admin: 01/23/20 00:28 Dose: 5 mg Documented by: (1) Anemia Anemia type: unspecified type Qualified Code(s): D64.9 - Anemia, unspecified (2) CKD (chronic kidney disease) Chronic kidney disease stage: unspecified stage Qualified Code(s): N18.9 - Chronic kidney disease, unspecified
[2020-01-23] MEDS: INSULIN ASPART 100 UNITS/ML 3 ML PEN SC SCH ×4 (08:03→20:43)
[2020-01-23] MEDS ORDERED: FUROSEMIDE 40 MG in SYRINGE 0 ML IV SCH (09:00)
[2020-01-23] MEDS: bisacodyL 10 MG SUPP PR PRN (11:52)
[2020-01-23] MEDS: bisacodyL 5 MG TABEC PO PRN (12:17)
--- NOTE | 2020-01-23 12:23 | Cardiology Progress Note ---
Date of Service January 23, 2020 Assessment & Plan (1) Acute on chronic systolic (congestive) heart failure: (2) Atrial fibrillation: (3) CKD (chronic kidney disease): (4) Constipation: Fluid balance improving with IV Lasix and placement of Chandler catheter for urinary retention. Continue Lasix 40 mg IV daily. Repeat basic metabolic panel in a.m. Follow fluid balance, daily weight, GFR, and electrolytes. INR has trended down to 2.6. Restart Coumadin 2.5 mg daily. Outpatient dose: 2.5 mg on Mondays, and Fridays, 5 mg all other days. Monitor daily INR. Treatment of constipation and insomnia per internal medicine. Subjective Patient seen and examined at the bedside. Complains of shortness of breath and constipation today. Chronic fatigue unchanged. No orthopnea or paroxysmal nocturnal dyspnea. Reports difficulty sleeping last evening despite Ambien. Patient received dose of 40 mg Lasix this a.m. with 500 cc diuresis thus far. Creatinine trending downward. Telemetry demonstrates atrial fibrillation with heart rate ranging from 90 to 100 bpm. INR has trended down to 2.6. Review of Systems Review of Systems: All systems reviewed & are unremarkable except as noted in HPI & below Physical Exam Constitutional: + ill appearing and + obese Respiratory: Auscultation: + diminished lung sounds (Bases bilaterally); no crackles, no rales, no rhonchi and no wheezes Cardiovascular: Rate/Rhythm: + irregularly irregular Heart Sounds: normal S1 and normal S2; no murmur and no cardiac rub Vessels: no JVD and no carotid bruit Extremities: + edema (Trace bilateral pedal edema) Gastrointestinal (Abdomen): Inspection/Auscultation: abdomen normal to inspection and normal bowel sounds; abdomen not distended Percussion/Palpation: abdomen soft; abdomen nontender, no guarding and abdomen not rigid Skin: no rashes, warm and dry Neurologic: moves all extremities; no focal motor deficits Speech / Cognition: normal speech Psychiatric: Affect: + depressed affect Results & Data Vital Signs (Past 12 Hours) Vital Signs Temp Pulse Pulse Resp BP Pulse Ox 01/23/20 11:11 36.6 C 96 H 25 H 104/65 99 01/23/20 08:00 92 H 01/23/20 07:23 36.8 C 96 H 22 122/64 98 01/23/20 03:35 36.5 C 108 H 19 117/78 97 (1) Atrial fibrillation Atrial fibrillation type: permanent Qualified Code(s): I48.21 - Permanent atrial fibrillation (2) CKD (chronic kidney disease) Chronic kidney disease stage: unspecified stage Qualified Code(s): N18.9 - Chronic kidney disease, unspecified (3) Constipation Constipation type: unspecified constipation type Qualified Code(s): K59.00 - Constipation, unspecified
[2020-01-23] MEDS ORDERED: WARFARIN SOD 2.5 MG TAB PO SCH (16:00)
[2020-01-23] MEDS: ATORVASTATIN 40 MG TAB PO SCH (20:42)
[2020-01-23] MEDS: TAMSULOSIN HCL 0.4 MG CAP PO SCH (20:42)
[2020-01-24] MEDS ORDERED: EPINEPHrine 4 MG in DEXTROSE 5% HYPOTENSION IV SCH (03:30)
--- NOTE | 2020-01-24 03:34 | Communication Note ---
Date of Service: January 24, 2020 Made aware by RN of tachy-diaen episodes on the monitor. Cardiac rate 30s to 100s. Upon evaluation, patient noted to be unresponsive, diaphoretic and with agonal breathing as per RN. SBP 40s. Code purple called. Epinephrine dose administered. Patient subsequently intubated by intubation team and transferred to ICU for vent management and pressor therapy. Patient's , Jemima, updated of developments over the phone. Full code status changed to conditional code as per request. No CPR, defibrillation in case of cardiac arrest. Patient agreeable to cardiac medications, pressor tx. Continue mechanical ventilation. Will relay to AM provider.
[2020-01-24] MEDS ORDERED: SUCCINYLCHOLINE 100MG/5ML SYR ONE (03:35)
[2020-01-24] MEDS ORDERED: ROCURONIUM BROMID 50MG/5ML SYR ONE (03:36)
[2020-01-24] MEDS ORDERED: ETOMIDATE 2 MG/ML 20 ML VIAL IV ONE (03:36)
[2020-01-24] MEDS ORDERED: PROPOFOL IV EMULSION 10 MG/ML 100 ML VIAL IV ONE (03:39)
[2020-01-24] MEDS ORDERED: fentaNYL citrate 100 MCG/2 ML VIAL IV PRN (03:57)
[2020-01-24] MEDS ORDERED: ACETAMINOPHEN 1,000 MG/100 ML VIAL IV PRN (03:57)
[2020-01-24] MEDS ORDERED: PROMETHAZINE HCL 12.5 MG in SODIUM CHLORIDE 0.9% 50 ML IV PRN (03:57)
[2020-01-24 03:59] LABS: Basophils # (auto) 0.01 K/uL (0-0.2); Basophils % (auto) 0.1 %; Eosinophils # (auto) 0.02 K/uL (0-0.5); Eosinophils % (auto) 0.2 %; Hematocrit (blood only) 35.8 % (42-52); Hemoglobin 10.3 g/dL (14.0-18.0); Immature Granulocytes # (auto) 0.02 K/uL (0.00-0.02); Immature Granulocytes % (auto) 0.2 %; Lymphocytes # (auto) 0.83 K/uL (1.2-3.4); Lymphocytes % (auto) 7.5 %; Mean Corpuscular Hgb Conc 28.8 g/dL (32-36); Mean Corpuscular Volume 76.5 fL (80-100); Mean Platelet Volume 10.1 fL (7.4-10.4); Monocytes # (auto) 0.47 K/uL (0.11-0.59); Monocytes % (auto) 4.3 %; Neutrophils # (auto) 9.67 K/uL (1.4-6.5); Neutrophils % (auto) 87.7 %; Nucleated RBC # (auto) 0.07 K/uL (0-0); Nucleated RBC % (auto) 0.6 %; Platelet Count 304 K/uL (130-400); RDW Coefficient of Variation 19.7 % (11.5-14.5); RDW Standard Deviation 53.9 fL (36.4-46.3); Red Blood Count 4.68 M/uL (4.7-6.1); White Blood Count 11.02 K/uL (4.8-10.8)
[2020-01-24] MEDS: propofoL 1,000 MG/100 ML VIAL IV SCH ×3 (04:00→21:28)
[2020-01-24 04:01] LABS: INR 2.2 (0.9-1.1); Prothrombin Time 21.9 Seconds (9.0-12.0)
--- NOTE | 2020-01-24 04:04 | Anesthesia Procedure Note ---
Anesthesia Procedure Note Intubation Note Vital Signs: Patient medical history, medication, allergies and vitals reviewed. Date of procedure: 01/24/20 Indication for intubation: Failure to oxygenate, Respiratory distress and Unable to protect airway Consent: Risk / Benefits Reviewed With: Informed Consent Obtained and Emergency Monitors attached: Blood Pressure, EKG and Pulse Oximetry Time out completed: No Premedication: Etomidate (mg) (8) Paralytic medication: Succinylcholine (mg) (100) Intubation technique: Adequate preoxygenation and Two-hand mask Equipment: Glidescope View: Grade 1 Endotracheal tube: 8.0, with Stylet, Tube secured @ cm (24) and Balloon inflated Attempts: 1 and Atraumatic Tube placement confirmation: auscultation and Positive CO2 detection Post-procedure: Pt tolerates well, No complication and Post placement CXR ordered
[2020-01-24 04:09] LABS: BUN Creatinine Ratio 36.2 (10-20); Calcium 8.4 mg/dl (8.5-10.1); Creatinine Clr Calc Pharmacy 41.4 ml/min; Est GFR (African American) 48.5; Est GFR (Non-African American) 41.8; Magnesium 2.8 mg/dl (1.8-2.4); Potassium 4.8 mmol/L (3.5-5.1)
[2020-01-24 04:10] LABS: Partial Thromboplastin Ratio 1.1; Partial Thromboplastin Time 29.6 Seconds (21.0-31.0)
[2020-01-24] MEDS ORDERED: GLUCOSE 40% GEL 15 GM TUBE PO PRN (04:11)
[2020-01-24] MEDS ORDERED: GLUCAGON FOR INJ 1 MG VIAL SQ PRN (04:11)
[2020-01-24] MEDS ORDERED: CARBOHYDRATES FOR HYPOGLYCEMIA PO PRN (04:11)
[2020-01-24] MEDS ORDERED: GLUCOSE 10 TABS/TUBE PO PRN (04:11)
[2020-01-24] MEDS ORDERED: DEXTROSE 50% 50 ML SYRINGE IV PRN (04:11)
[2020-01-24 04:19] LABS: Thyroid Stimulating Hormone 2.58 uIu/ml (0.300-4.500)
[2020-01-24] MEDS ORDERED: FUROSEMIDE 40 MG in SYRINGE 0 ML IV ONE (04:19)
[2020-01-24] MEDS ORDERED: STAT IV Infusion **Titration per Protocol STA ×2 (04:21→08:55)
[2020-01-24] MEDS ORDERED: PROPOFOL BOLUS FROM BAG IV PRN (04:21)
[2020-01-24] MEDS ORDERED: ICU PROTOCOL FOR HYPERGLYCEMIA PRN (04:22)
[2020-01-24] MEDS ORDERED: NOREPINEPHRINE BIT INJ 8 MG in DEXTROSE 5% 500 ML IV SCH (04:30)
[2020-01-24] MEDS ORDERED: FUROSEMIDE 40 MG/4 ML VIAL IV ONE (04:45)
[2020-01-24 04:46] LABS: iSTAT Arterial Blood Gas HCO3 28 meg/L (19-24); iSTAT Arterial Blood Gas pCO2 38 mmHg (35-46); iSTAT Arterial Blood Gas pH 7.48 (7.35-7.45); iSTAT Arterial Blood Gas pO2 212 mmHg (80-95); iSTAT Carbon Dioxide 29 mmol/L (24-31); iSTAT FiO2 100 %; iSTAT Site L Radial
--- NOTE | 2020-01-24 04:46 | Procedure Note ---
Procedure Note Date of Service January 24, 2020 FEMORAL CENTRAL LINE PROCEDURE NOTE: Procedure: Femoral Central Line Placement Attending: Dr. Nath Provider: KERRIE Perkins Indication: Central Drug Administration, Poor Venous Access, Multiple Lab Draws Necessary, etc. Anesthesia: None Line was placed emergently following CODE BLUE in which case it was hypotensive and nonresponsive. A time-out was completed verifying correct patient, procedure, site, positioning, and implants(s) or special equipment if applicable. Patients right groin was cleansed and draped in the typical sterile fashion using Chloraprep. The Femoral Vein and Femoral Artery were identified using ultrasound. The femoral Vein was cannulated under direct ultrasound guidance using an introducer needle on a syringe. Good venous blood return was maintained prior to removal of syringe from introducer needle. Using Seldinger Technique, a guide wire was adva nced through the introducer needle without resistance. The introducer needle was removed and ultrasound images were obtained of the guide wire within the Femoral Vein and saved to the patients medical record.A small incision was made in penetrating fashion at the guide wire insertion site utilizing an 11 blade scalpel. The dilator was advanced to the vessel without resistance. The dilator was exchanged for the triple lumen catheter which was advanced into the vessel without resistance. The guide wire was removed intact from the catheter without issue. Claves were placed on each catheter tip with confirmation of good blood flow from each lumen. Each port was easily flushed with sterile saline. The catheter was placed at the hub and sutured in place. BioPatch was applied to the catheter and a sterile Tegaderm dressing was applied over the catheter with careful attention to sterility. Patient tolerated procedure well. No immediate complications were met. Procedural Ultrasound Guidance: Procedure Date: 01/24/2020 Indication: Central venous line insertion Attending: Dr. Nath Provider: KERRIE Perkins Artery AND Vein visualized: Yes Compressible Vein: Yes Guidewire or Short Catheter seen in vein prior to dilation: Yes Line confirmed in Vein with ultrasound: Yes Coding CPT Codes Tubes, Drains, and Vasc Access - Tubes, Drains, and Vasc Access: [id number] Place catheter in vein superior or inferior vena cava ([id number]) Tubes, Drains, and Vasc Access - Tubes, Drains, and Vasc Access: [id number] Ultrasound Guidance For Vascular ([id number]) [facility] Procedure Codes (Charges) Tubes, Drains, and Vasc Access Procedure 1: Tubes, Drains, and Vasc Access: [id number] Place catheter in vein superior or inferior vena cava Procedure 2: Tubes, Drains, and Vasc Access: [id number] Ultrasound Guidance For Vascular
--- NOTE | 2020-01-24 04:47 | Critical Care Consultation ---
Date of Consultation January 24, 2020 Assessment & Plan (1) Shock: Reason Critically Ill: 75-year-old male presents to the ICU following CODE BLUE which the patient was hypotensive and required intubation, now on ventilator and vasopressors. Neuro - Sedation: Propofol AMS: Patient was initially unresponsive during code, likely secondary to shock. Patient was reportedly at baseline prior to event -BUN within normal limits, could consider metabolic encephalopathy if patient is septic -Were unable to obtain CO2 during that due to acuity, was within normal limits post intubation -No acute process on CT head, did consider hemorrhage given patient was anticoagulant -We will continue to monitor History CVA: Patient has residual left-sided weakness, will continue home meds Cardiac - Hypotension/shockunsure of etiology at this point as could be cardiogenic or septic in origin -Patient was initially resuscitated with IV epinephrine, switch to levo fed, titrating with map goal greater than 65 -Repeat echo pending CHFlast echo in October with EF of 30 to 35%, repeating today considering shock - BNP 10,000 on this admission, patient was undergoing diuresis but appears to be +1 L past 24 hours per charting -Chest x-ray and CT chest showed significant progression of effusions -Diuresed with IV Lasix this a.m. -Continue to limit fluid intake/IV fluids, strict I's and O's, daily weights -May consider thoracentesis/chest tube for right pleural effusion CADs/p CABG in 2002 -Troponin elevated but consistent with baseline -No acute changes on EKG, no ST elevations, consistent with prior studies -Continue ASA, statin A. fib (chronic)on MTP and Coumadin regimen, INR supratherapeutic and Coumadin currently on hold -Holding MTP for hypotension -Continuous monitoring on telemetry, currently rate controlled History of aortic stenosisstatus post TAVR and MVR in 2017 Respiratory - Hypoxic respiratory failure, acute on chronicpatient wears 2 L nasal cannula at baseline -Likely secondary to mix of CHF exacerbation/pneumonia?/aspiration pneumonitis? -Chest imaging revealed significant right pleural effusion, small left pleural effusion, bilateral lower lobe consolidative change and possible aspiration -Patient was intubated he was failing to protect his airway -Vent settings: 16/450/5/50 percent, weaning as tolerated -Continue nebs as needed -Continue diuresis GI - N.p.o. Recent history cholelithiasis/cholangitispatient underwent the ERCP in November -LFTs mildly elevated but at baseline -CT abdomen unremarkable for acute process, findings are consistent with hepatic cirrhosis and mild to moderate abdominal and pelvic ascites ConstipationCT abdomen did reveal stool impaction in the rectum, will attempt to manually disimpact and assist with enema -We will start on bowel regimen RENAL/LYTES - MARISA on CKDappears to be resolved as creatinine is returned to baseline -We will continue to avoid nephrotoxins -Ensure adequate perfusion with map management -Caution with fluid resuscitation for CHF exacerbation -Trend with routine BMPs - Foleystrict I's and O's ENDO - DM type IIICU hyperglycemic protocol -Continue sliding scale TSH within normal limits HEME - H&H stable, monitor routine CBCs ID - Sepsis?CT chest suspicious for pneumonia/aspiration pneumonitis -No acute process on CT abdomen -Significant elevation in lactic acid of 5, unsure if this is ischemic or septic, continue to trend -UA, blood cultures pending; procalcitonin negative -MRSA swab pending -Continue Vanco and Zosyn for now LINES/IV ACCESS - Central venous line, ETT, OGt, PIV's, Chandler DVT PROPHYLAXIS - SCDs, on warfarin I have personally spent 80 minutes of critical care time in the direct management of this patient. This is a life/limb threatening event. This includes time spent evaluating patient, direct bedside care, chart review, placing orders, interpretation of diagnostic studies, discussion with consultants, patient, and family members, as well as other required patient management activities. This time is exclusive of all separately billable procedures, and teaching time and separate from and in addition to any other critical care service time. Thank you for allowing us to participate in the care of this patient. Please refer to my attending physician's documentation for any further recommendations. (2) Constipation: (3) Acute on chronic systolic (congestive) heart failure: (4) CKD (chronic kidney disease): (5) Aortic stenosis: (6) Respiratory failure: (7) MARISA (acute kidney injury): (8) History of aortic valve replacement: (9) Ischemic cardiomyopathy: (10) Diabetes mellitus, type II: (11) Stroke: (12) Coronary artery disease: (13) Atrial fibrillation: (14) Hypotension: (15) AMS (altered mental status): History of Present Illness Attending Physician: Omega Wiley MD History of Present Illness Mr. Bustillo is a 75-year-old male with history of systolic CHF, ischemic cardiomyopathy with EF 30%, CAD status post CABG 2002, A. fib on Coumadin, DM type II, CVA, aortic stenosis s/p TAVR in 2017, and chronic respiratory failure on 2 L nasal cannula. He had multiple recent hospitalizations for cholangitis and MSSA bacteremia, ERCP with 2 stent placed for CBD, EGD for GI bleed. He was initially admitted on this hospitalization 01/20 for complaints of shortness of breath with exertion x2 weeks and was being treated for a CHF exacerbation. At approximately 4 AM this morning a code purple was called. I responded at the bedside and the patient was unresponsive with agonal breathing, and hypotensive. Patient was emergently intubated and started on vasopressors and transported to the ICU. Central line was emergently placed. Chest x-ray revealed significant worsening of pleural effusion. The patient's EKG did not show acute change. Patient was taken for CT imaging once stabilized in the ICU. Dr. Hernandez spoke with and patient's CODE STATUS is now no shocks or compressions in the event of cardiac arrest per their conversation. We will continue medical therapy and ventilator support. Patient to remain in ICU for further management at this time. Allergies Allergy/AdvReac Type Severity Reaction Status Date / Time lisinopril AdvReac Mild COUGH Verified 12/10/19 12:56 Home Medications Home Medications Medication Instructions Recorded Confirmed Type atorvastatin [Lipitor] 40 mg PO HS 04/05/19 01/21/20 History nitroglycerin [Nitrostat] 0.4 mg SUBLINGUAL UD PRN 04/05/19 01/21/20 History tamsulosin [Flomax] 0.4 mg PO QPM 04/05/19 01/21/20 History zolpidem [Ambien] 5 mg PO HS 04/05/19 01/21/20 History gabapentin [Neurontin] 100 mg PO TID 05/29/19 01/21/20 History metoprolol succinate [Toprol XL] 25 mg PO QAM 05/29/19 01/21/20 History buspirone 10 mg PO TID 11/25/19 01/21/20 History Humulin R Regular U-100 Insuln 0 sliding scale dose SUBCUT ACHS 12/08/19 01/21/20 History aspirin 81 mg PO QAM 12/08/19 01/21/20 History spironolactone [Aldactone] 25 mg PO BID 12/08/19 01/21/20 History torsemide 20 mg PO QDD 12/08/19 01/21/20 History torsemide 40 mg PO QAM 12/08/19 01/21/20 History acetaminophen [Tylenol] 325 mg PO Q4H PRN 12/10/19 01/21/20 History pantoprazole [Protonix] 40 mg PO BID 30 Days #60 tab 12/13/19 01/21/20 Rx warfarin [Coumadin] 0 mg PO UD 01/21/20 01/21/20 History Patient History Medical History Anxiety Aortic stenosis s/p TAVR with MV replacement 12/2016. Atrial fibrillation ON WARFARIN - FOLLOWS W/ DR. KOWALSKI Cardiac murmur Severe mitral annular calcification per 03/2019 echo. Limited echo, valves not well visualized. H/O MV repair and AVR. CHF (congestive heart failure) Cholecystitis, chronic Chronic respiratory failure with hypoxia Chronic systolic (congestive) heart failure Coronary artery disease s/p CABG 2002 Degenerative disc disease Diabetes mellitus, type II IDDM Diabetic neuropathy Diverticular disease Dyslipidemia GERD (gastroesophageal reflux disease) History of recent pneumonia HOSPITALIZED 03/2019 [facility] History of renal calculi Hypertension Ischemic cardiomyopathy EF 25-30%, pt refused ICD. On anticoagulant therapy SOB (shortness of breath) on exertion Spinal stenosis Stroke 2 YEARS AGO - WEAKNESS LEFT SIDE Transient ischemic attack (TIA) 2016 Surgical History Difficult airway Glidescope #4 atraumatic attempt x 1, 04/05/19 History of aortic valve replacement History of TAVR complicated by prosthetic fracture and then underwent open surgical aortic valve replacement, mitral valve repair in 2017 History of cardiac cath 2 YEARS AGO - [facility] - NO STENTS/ANGIOPLASTY --> VALVE REPLACEMENT History of cardiac radiofrequency ablation For A flutter, 2005. History of cardioversion History of cataract surgery History of chest tube placement During admission 04/05 - 04/28 for empyema History of ERCP 04/09/19. Glidescope #4. 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 Beliefs That Will Affect Care: None marital status: Current Living Situation: Spouse Other Information That Helps Us Care for You: No Feels Safe at Home: Yes Safety Concerns: Feels Safe At This Time Smoking Status: Never smoker Tobacco Type: smokeless tobacco ; Do You Dip or Chew Tobacco: No ; Second Hand Exposure: No ; Tobacco Cessation Education Requested by Patient: No Hx Alcohol Use: No Hx Substance Use: No Review of Systems Review of Systems: Unobtainable due to cognitive status and Unobtainable due to endotracheal tube Physical Exam Eyes: PERRL, conjunctivae normal, anicteric sclerae ENMT: external ear and nose normal, oropharynx normal Endotracheal tube 24 at the lip Neck: trachea midline, no thyromegaly Respiratory: Symmetrical chest movement, diminished lung sounds in the bases and coarse crackles auscultated bilateral, Cardiovascular: A. fib, JVD, bilateral pedal edema, sluggish capillary refill Gastrointestinal (Abdomen): Abdomen distended, ascites, semifirm nonrigid, visible left quadrant hernia, hypoactive bowel sounds Skin: Skin is mottled, cool and clammy Neurologic: HONEY due to sedation and paralytics given and intubation Psychiatric: HONEY Genitourinary: Indwelling Chandler catheter Results & Data Results & Data ([facility]) Vital Signs (Past 12 Hours) Vital Signs Temp Pulse Pulse Resp BP BP Pulse Ox 01/23/20 23:39 36.3 C L 97 H 20 94/62 L 98 01/23/20 22:20 91 H 01/23/20 18:50 36.4 C L 102 H 20 149/68 H 97 Coding Level of Care Code Critical Care ea addt'l 30 min Diagnoses Shock R57.9 Constipation K59.00 Constipation type: unspecified constipation type Acute on chronic systolic (congestive) heart failure I50.23 CKD (chronic kidney disease) N18.9 Chronic kidney disease stage: unspecified stage Aortic stenosis I35.0 Respiratory failure J96.90 MARISA (acute kidney injury) N17.9 History of aortic valve replacement Z95.2 Ischemic cardiomyopathy I25.5 Diabetes mellitus, type II E11.9 Stroke I63.9 Coronary artery disease I25.10 Atrial fibrillation I48.21 Atrial fibrillation type: permanent Hypotension I95.9 AMS (altered mental status) R41.82 (1) Atrial fibrillation Atrial fibrillation type: permanent Qualified Code(s): I48.21 - Permanent atrial fibrillation (2) CKD (chronic kidney disease) Chronic kidney disease stage: unspecified stage Qualified Code(s): N18.9 - Chronic kidney disease, unspecified (3) Constipation Constipation type: unspecified constipation type Qualified Code(s): K59.00 - Constipation, unspecified
[2020-01-24 04:51] LABS: Albumin Level 2.7 gm/dl (3.4-5.0); Bilirubin Direct 0.6 mg/dl (0-0.2); Bilirubin,Total 1.3 mg/dl (0.2-1); Total Protein 7.3 gm/dl (6.4-8.2)
[2020-01-24] MEDS ORDERED: VANCOMYCIN CONSULT ACTIVE PRN ×2 (05:00)
[2020-01-24] MEDS ORDERED: PIPERACILL/TAZOBAC CONSULT ACTIVE PRN (05:00)
[2020-01-24] MEDS: NOREPINEPHRINE (Adult) 8 MG in DEXTROSE 5% 500 ML IV SCH (05:24)
[2020-01-24] MEDS ORDERED: VANCOMYCIN HCL 2,000 MG in SODIUM CHLORIDE 0.9% 500 ML IV ONE (05:30)
[2020-01-24] MEDS ORDERED: PIPERACILLIN/TAZOBACTAM 4.5 GM in DEXTROSE 5% 100 ML IV ONE (05:30)
[2020-01-24] MEDS: INSULIN ASPART 100 UNITS/ML 3 ML PEN SC SCH ×3 (05:40→18:12)
--- NOTE | 2020-01-24 06:03 | XRay Report ---
XR chest 1V portable CLINICAL HISTORY: sob dyspnea COMPARISON STUDY: 01/21/2020 FINDINGS: Progressive right pleural effusion. Slight increase in volume of a left effusion. Endotrach eal tube 4 cm above the derrell. Moderate cardiomegaly. Prior median sternotomy. IMPRESSION: 1. Mildly progressive congestive heart failure with increase in volume of bilateral pleural effusions . 2. Endotracheal tube 4 cm above the derrell. ACT 112: Negative or not required by law. The above report was generated using voice recognition software. It may contain grammatical, syntax or spelling errors. Electronically signed by: Kenneth Ortiz M.D. 01/24/2020 6:02 AM
--- NOTE | 2020-01-24 06:16 | CT Scan Report ---
CT head/brain wo con CT DOSE: 3090.19 mGy.cm HISTORY: Mental status change AMS TECHNIQUE: Multiaxial CT images of the head were performed without the use of intravenous contrast. A dose lowering technique was utilized adhering to the principles of ALARA. Comparison: None. Findings: Prominent adenoids. Bulk of the sinuses are clear. Minimal mucosal thickening of the ethmoi d sinuses. Mastoid air cells are clear. Old right occipital infarct. Age-related atrophy and chronic small vessel change. No evidence for acute intracranial hemorrhage. The calvarium and skull base are intact. The ventricles and sulci are within normal limits. There is no mass, hematoma, midline shift, or acute infarct. Impression: 1. Old right occipital infarct. 2. No acute intracranial abnormality. 3. Prominence of the adenoids. ACT 112: Negative or not required by law. The above report was generated using voice recognition software. It may contain grammatical, syntax or spelling errors. Electronically signed by: Kenneth Ortiz M.D. 01/24/2020 6:14 AM
--- NOTE | 2020-01-24 06:22 | CT Scan Report ---
CT chest wo con CT DOSE: HISTORY: Dyspnea Resp Failure TECHNIQUE: Multiaxial CT images of the chest were performed without contrast. A dose lowering techni que was utilized adhering to the principles of ALARA. COMPARISON: 07/24/2019 FINDINGS: Large right pleural effusion. Smaller left pleural effusion. Moderate stable cardiomegaly. Consolidative change of the right as well as left lower lobe regions. Atherosclerotic change thoracic aorta considered unchanged. Findings suggesting components of hepatic cirrhosis. Endotracheal tube 4 cm above the derrell. Nasogastric tube within the stomach. Moderate upper abdominal ascites. IMPRESSION: 1. Bilateral pleural effusions. 2. Bilateral lower lobe consolidative change. 3. Moderate stable cardiomegaly post median sternotomy. 4. Endotracheal tube 4 cm above the derrell. 5. Nasogastric tube within the stomach. 6. Upper abdominal ascites with findings consistent with hepatic cirrhosis. ACT 112: Negative or not required by law. The above report was generated using voice recognition software. It may contain grammatical, syntax or spelling errors. Electronically signed by: Kenneth Ortiz M.D. 01/24/2020 6:20 AM
[2020-01-24 06:29] LABS: Appearance Urine Clear (Clear); Bacteria Urine Automated Negative (Negative); Bilirubin Urine Negative (Negative); Blood Urine Trace (Negative); Color Urine Yellow; Glucose Urine UA Negative (Negative); Ketones Urine Negative (Negative); Leukocyte Esterase Urine Negative (Negative); Nitrite Urine Negative (Negative); Protein Urine Trace (Negative); RBC Urine Automated 0-4 /hpf (0-4); Specific Gravity Urine 1.014 (1.000-1.030); Urobilinogen Urine Negative (Negative)
[2020-01-24] MEDS ORDERED: LEVALBUTEROL TARTRATE 15 GM HFA.AER.AD INH SCH (07:00)
[2020-01-24] MEDS ORDERED: IPRATROPIUM BROMIDE HFA INHALER INH SCH (07:00)
[2020-01-24] MEDS ORDERED: ALBUT/IPRATROP 3MG/0.5MG NEB 3 ML VIAL NEB PRN (07:13)
--- NOTE | 2020-01-24 07:15 | CT Scan Report ---
CT abd pelvis wo con CT DOSE: HISTORY: Sepsis sepsis TECHNIQUE: Multiaxial CT images of the abdomen and pelvis were performed without contrast. A dose lo wering technique was utilized adhering to the principles of ALARA. COMPARISON STUDY: 04/18/2019 FINDINGS: Bilateral pleural effusions. Consolidative change of the right as well as left lower lobes. Findings of hepatic cirrhosis. Upper abdominal ascites. Spleen and pancreas appear unremarkable. Inte rval removal of the biliary as well as pancreatic ductal stents. The kidneys are negative for hydronephrosis. Mild pelvic ascites. Moderate fecal impaction within the rectum. Nonobstructive bowel pattern. Scattered colonic diverticu losis. Chandler catheter within a collapsed bladder. 2 cm lateral calcification. Considerable atherosclerotic c hange of the abdominal and pelvic arterial vasculature. Mild body wall anasarca. IMPRESSION: 1. Bilateral pleural effusions with bilateral lower lobe atelectatic change. 2. Hepatic cirrhosis with mild to moderate abdominal and pelvic ascites. 3. Moderate body wall anasarca. 4. Nonobstructive bowel pattern. 5. Rectal fecal impaction. ACT 112: Negative or not required by law. The above report was generated using voice recognition software. It may contain grammatical, syntax or spelling errors. Electronically signed by: Kenneth Ortiz M.D. 01/24/2020 7:13 AM
[2020-01-24] MEDS ORDERED: MINERAL OIL ENEMA 133 ML BTL PR ONE (08:30)
[2020-01-24] MEDS ORDERED: FENTANYL BOLUS FROM BAG IV PRN (08:55)
[2020-01-24] MEDS ORDERED: FUROSEMIDE 40 MG in SYRINGE 0 ML IV SCH (09:00)
[2020-01-24] MEDS ORDERED: DOCUSATE SODIUM/SENNA 50/8.6MG TAB PO SCH (09:00)
--- NOTE | 2020-01-24 09:07 | Hospitalist Progress Note ---
Date of Service January 24, 2020 Assessment & Plan (1) Acute on chronic systolic (congestive) heart failure: History of chronic systolic heart failure, ischemic cardiomyopathy Pt is 75 y/o M with PMH chronic systolic CHF, ischemic cardiomyopathy EF: 30%, CAD s/p CABG in 2002, A-fib on Coumadin, DM II, H/O CVA, HTN, Aortic stenosis s/p TAVR with bioprosthetic valve in 2017, chronic respiratory failure on 2L O2 presented to ER with c/o SOB with exertion x 2 weeks. BLE edema x2 days. Echo on 11/26/2019: EF: 30-35%, mild concentric LVH, apical septum and apical inferior wall akinetic, posterior wall at base and mid level is akinetic, all other segments hypokinetic, normal gradient prosthetic aortic valve, mild mitral regurgitation, mild tricuspid regurgitation In ER afebrile, P: 77-101, R: 20, BP: 108/66, 96% on RA up to 100% on 3L oxygen via NC, No leukocytosis, H/H: 9.6/33, BUN: 59, Cr: 1.56 (1.3-1.4 in 11/2019), BNP: 10,739 CXR: congestive changes, small bilateral effusions -In ER given Lasix 40 mg IV, added albumin -Monitor I's and O's, daily weights, low-sodium diet -Lasix 40 mg IV daily + IV albumin -Continue spironolactone, hold torsemide -Cardiology consulted, appreciate their input -continued w/40 mg IV lasix AM 01/22 Shock -Patient found unresponsive overnight (01/22-01/23), hypotensive, required intubation and pressor support -Likely cardiogenic versus poss. septic (patient was treated for acute CHF exacerbation, prior to this event low suspicion for infection) -Echocardiogram was obtained (01/23) -showed EF of 25 to 30%, LV systolic function severely reduced. Underlying rhythm A. fib with frequent PVCs. [place] involving apical septum and apical inferior wall is akinetic. Posterior wall at the base and mid level is akinetic. The remaining LV myocardial wall segments are hypokinetic. Gradient is normal for prosthetic aortic valve. Systolic pulmonary artery pressure is 51. -Cardiology reviewed echo, and compared EF with previous from October 2019, did not feel as there was significant difference -CT chest significant for large right pleural effusion. -Possibly consider thoracentesis, per discretion of pulmonary medicine -Diuretics on hold due to hypotension Hypoxic respiratory failure, acute on chronic patient wears 2-3 L NC at baseline -Likely secondary to CHF exacerbation/pleural effusion/poss.pna / poss. aspiration -Chest imaging revealed significant right pleural effusion, small left pleural effusion, bilateral lower lobe consolidative change and possible aspiration -Pt was intubated as he was failing to protect his airway -Management per ICU/pulmonary medicine -Empiric antibiotics also started (2) Elevated troponin: Troponin: 0.05. EKG afib, RBBB, inferior infarct pattern also seen on EKG 12/10/2019 INR: 4.1 No CP. Suspect demand ischemia -monitor on tele -troponin peaked at 0.059 -Hold on echo as had echo in 10/2019 -Continue aspirin, metoprolol, statin -cardiology following (3) Coronary artery disease: S/P CABG in 2002 -Continue aspirin, metoprolol, statin (4) Atrial fibrillation: Chronic A. fib on Coumadin INR: 4.1 on admission, then 4.4 -now down to 2.2 -Continue metoprolol -re-started coumadin 01/22 -monitor INR (5) Chronic respiratory failure with hypoxia: On 2-3L oxygen chronic -continue supplemental oxygen (6) Anemia: H/H: 9.6/33. Recent hospital admission for GI bleed. Hgb stable since discharge. -Monitor H&H -Continue chronic PPI (7) Diabetes mellitus, type II: A1c: 7.4 on 11/26/2019 -Novolog sliding scale (8) Aortic stenosis: 2017 H/O TAVR complicated by rupture of the prosthetic valve, aortic valve replacement with bioprosthesis, mitral valve repair (9) CKD (chronic kidney disease): MARISA on CKD stage III Baseline about 1.3-1.4 Cr 1.56 on admission, now down to 1.33 Cont. to monitor -improved w/ lasix and albumin (10) Constipation: -Started patient on oral softeners and suppositories -now pt in ICU, CT abdomen obtained due to episode of unresponsiveness, shock -On imaging stool burden noted, rectal stool impaction, per ICU attempt to manually disimpact and assist with enema (11) Anxiety: -Continue buspirone DVT Prophylaxis -On Coumadin, Current INR therapeutic CODE status-conditional Full Code as per discussion with pt on admission, CODE STATUS then discussed overnight 01/23, when patient found unresponsive, and in shock. Per patient's no CPR or defibrillation in case of cardiac arrest, patient's agreeable to cardiac medications, pressors, and mechanical ventilation. Follows with Dr Puri for routine care Admission and Anticipated Discharge Date Admission Date: January 21, 2020 Subjective CODE BLUE called overnight due to unresponsiveness, right prior to this episode, nurse ob notified of tachy-bradycardia episodes on monitor. SBP 40s. Epinephrine given. Pt was intubated and started on vasopressors. Per discussion with nurse ob and patient's , no CPR, defibrillation in case of cardiac arrest. Patient's agreeable to cardiac medications, pressors and mechanical ventilation. Currently patient remains in ICU, sedated on the ventilator. Imaging significant for a large right-sided pleural effusion. Echocardiogram pending. Review of Systems Review of Systems: Unobtainable due to cognitive status Patient sedated and intubated Physical Exam Physical Exam: General: Elderly male, sedated, intubated Head: normocephalic, atraumatic ENT: normal inspection external ears, nose Lungs: Coarse breath sounds bilaterally CV: irregularly irregular, 1+ pitting pretibial edema Abdomen: normal BS, soft, obese Ext: 1+ pitting pretibial edema Neuro: Sedated, intubated Skin: warm, dry Results & Data Results & Data ([facility]) Vital Signs (Past 12 Hours) Vital Signs Temp Pulse Pulse Resp BP BP Pulse Ox 01/24/20 08:42 103 H 119/63 96 01/24/20 08:32 87 87/66 L 96 01/24/20 08:29 99 H 96/68 L 97 01/24/20 08:17 92 H 95/55 L 98 01/24/20 08:12 95 H 61/42 L 99 01/24/20 08:01 88 97/63 L 98 01/24/20 08:00 95 H 01/24/20 07:52 36.5 C 92 H 79/61 L 98 01/24/20 07:41 92 H 114/64 100 01/24/20 07:32 94 H 90/48 L 100 01/24/20 07:25 95 H 16 100 01/24/20 07:22 100 H 101/48 L 100 01/24/20 07:12 96 H 108/50 L 100 01/24/20 07:02 97 H 73/45 L 100 01/24/20 06:51 93 H 111/72 100 01/24/20 06:42 91 H 92/58 L 100 01/24/20 06:31 100 H 132/60 100 01/24/20 06:22 98 H 108/66 100 01/24/20 06:12 95 H 121/64 100 01/24/20 06:01 103 H 112/80 100 01/24/20 05:52 105 H 87/75 L 100 01/24/20 05:42 104 H 101/88 100 01/24/20 05:37 106 H 71/46 L 100 01/24/20 05:31 97 H 70/50 L 100 01/24/20 05:21 105 H 81/52 L 100 01/24/20 05:11 105 H 90/59 L 100 01/24/20 05:02 103 H 108/67 100 01/24/20 04:57 90/67 L 100 01/24/20 04:21 128 H 127/106 H 100 01/24/20 04:14 113 H 111/82 100 01/24/20 04:01 120 H 108/79 100 01/24/20 03:51 138 H 149/96 H 100 01/24/20 03:46 136 H 150/119 H 100 01/24/20 03:45 36.7 C 137 H 100 01/23/20 23:39 36.3 C L 97 H 20 94/62 L 98 01/23/20 22:20 91 H Laboratory Results 01/24/20 01/24/20 01/24/20 Range/Units Unknown 06:15 05:08 WBC (4.8-10.8) K/uL RBC (4.7-6.1) M/uL Hgb (14.0-18.0) g/dL Hct (42-52) % MCV (80-100) fL MCH (25-34) pg MCHC (32-36) g/dL RDW Std Deviation (36.4-46.3) fL RDW Coeff of Abi (11.5-14.5) % Plt Count (130-400) K/uL MPV (7.4-10.4) fL Immature Gran % (Auto) % Neut % (Auto) % Lymph % (Auto) % [place] % (Auto) % Eos % (Auto) % Baso % (Auto) % Immature Gran # (Auto) (0.00-0.02) K/uL Neut # (Auto) (1.4-6.5) K/uL Lymph # (Auto) (1.2-3.4) K/uL [place] # (Auto) (0.11-0.59) K/uL Eos # (Auto) (0-0.5) K/uL Baso # (Auto) (0-0.2) K/uL Absolute Nucleated RBC (0-0) K/uL Nucleated RBC % (auto) % PT (9.0-12.0) Seconds INR (0.9-1.1) APTT (21.0-31.0) Seconds PTT Ratio Sample Site POC pH (7.35-7.45) POC pCO2 (35-46) mmHg POC pO2 (80-95) mmHg POC HCO3 (19-24) mariah/L POC Total CO2 (24-31) mmol/L POC Base Excess (-9-1.8) mariah/L POC ABG O2 Sat (90-95) % Anuj Test O2 Delivery Device POC O2 Rate Minute Ventilation POC FiO2 % Tidal Volume PEEP Sodium (136-145) mmol/L Potassium (3.5-5.1) mmol/L Chloride (98-107) mmol/L Carbon Dioxide (21-32) mmol/L Anion Gap (3-11) BUN (7-18) mg/dl Creatinine (0.6-1.4) mg/dl Est Cr Clr Drug Dosing ml/min Est GFR ( Amer) Est GFR (Non-Af Amer) BUN/Creatinine Ratio (10-20) Glucose (70-99) mg/dl POC Glucose 272 H (70-99) mg/dl Lactate (0.4-2.0) mmol/L Calcium (8.5-10.1) mg/dl Magnesium (1.8-2.4) mg/dl Total Bilirubin (0.2-1) mg/dl Direct Bilirubin (0-0.2) mg/dl AST (15-37) U/L ALT (12-78) U/L Alkaline Phosphatase (45-117) U/L Troponin I (0-0.045) ng/ml Total Protein (6.4-8.2) gm/dl Albumin (3.4-5.0) gm/dl Procalcitonin (0-0.5) ng/ml TSH (0.300-4.500) uIu/ml Urine Color Yellow Urine Appearance Clear (Clear) Urine pH 5.0 (4.5-7.5) Ur Specific [place] 1.014 (1.000-1.030) Urine Protein Trace H (Negative) Urine Glucose (UA) Negative (Negative) Urine Ketones Negative (Negative) Urine Blood Trace H (Negative) Urine Nitrite Negative (Negative) Urine Bilirubin Negative (Negative) Urine Urobilinogen Negative (Negative) Ur Leukocyte Esterase Negative (Negative) Urine WBC (Auto) 1-5 (0-5) /hpf Urine RBC (Auto) 0-4 (0-4) /hpf U Hyaline Cast (Auto) 5-10 H (0-5) /lpf U Epithel Cells (Auto) 10-20 H (0-5) /lpf Urine Bacteria (Auto) Negative (Negative) Nasal Screen MRSA (PCR) Negative (Negative) 01/24/20 01/24/20 01/24/20 Range/Units 04:28 03:46 03:46 WBC (4.8-10.8) K/uL RBC (4.7-6.1) M/uL Hgb (14.0-18.0) g/dL Hct (42-52) % MCV (80-100) fL MCH (25-34) pg MCHC (32-36) g/dL RDW Std Deviation (36.4-46.3) fL RDW Coeff of Abi (11.5-14.5) % Plt Count (130-400) K/uL MPV (7.4-10.4) fL Immature Gran % (Auto) % Neut % (Auto) % Lymph % (Auto) % [place] % (Auto) % Eos % (Auto) % Baso % (Auto) % Immature Gran # (Auto) (0.00-0.02) K/uL Neut # (Auto) (1.4-6.5) K/uL Lymph # (Auto) (1.2-3.4) K/uL [place] # (Auto) (0.11-0.59) K/uL Eos # (Auto) (0-0.5) K/uL Baso # (Auto) (0-0.2) K/uL Absolute Nucleated RBC (0-0) K/uL Nucleated RBC % (auto) % PT (9.0-12.0) Seconds INR (0.9-1.1) APTT (21.0-31.0) Seconds PTT Ratio Sample Site L Radial POC pH 7.48 H (7.35-7.45) POC pCO2 38 (35-46) mmHg POC pO2 212 H (80-95) mmHg POC HCO3 28 H (19-24) mariah/L POC Total CO2 29 (24-31) mmol/L POC Base Excess 5.0 H (-9-1.8) mariah/L POC ABG O2 Sat 100.0 H (90-95) % Anuj Test NA O2 Delivery Device Ventilator POC O2 Rate 16 Minute Ventilation 7.7 POC FiO2 100 % Tidal Volume 500 PEEP 5 Sodium (136-145) mmol/L Potassium (3.5-5.1) mmol/L Chloride (98-107) mmol/L Carbon Dioxide (21-32) mmol/L Anion Gap (3-11) BUN (7-18) mg/dl Creatinine (0.6-1.4) mg/dl Est Cr Clr Drug Dosing ml/min Est GFR ( Amer) Est GFR (Non-Af Amer) BUN/Creatinine Ratio (10-20) Glucose (70-99) mg/dl POC Glucose (70-99) mg/dl Lactate (0.4-2.0) mmol/L Calcium (8.5-10.1) mg/dl Magnesium (1.8-2.4) mg/dl Total Bilirubin 1.3 H (0.2-1) mg/dl Direct Bilirubin 0.6 H (0-0.2) mg/dl AST 19 (15-37) U/L ALT 20 (12-78) U/L Alkaline Phosphatase 105 (45-117) U/L Troponin I 0.057 H* (0-0.045) ng/ml Total Protein 7.3 (6.4-8.2) gm/dl Albumin 2.7 L (3.4-5.0) gm/dl Procalcitonin (0-0.5) ng/ml TSH (0.300-4.500) uIu/ml Urine Color Urine Appearance (Clear) Urine pH (4.5-7.5) Ur Specific [place] (1.000-1.030) Urine Protein (Negative) Urine Glucose (UA) (Negative) Urine Ketones (Negative) Urine Blood (Negative) Urine Nitrite (Negative) Urine Bilirubin (Negative) Urine Urobilinogen (Negative) Ur Leukocyte Esterase (Negative) Urine WBC (Auto) (0-5) /hpf Urine RBC (Auto) (0-4) /hpf U Hyaline Cast (Auto) (0-5) /lpf U Epithel Cells (Auto) (0-5) /lpf Urine Bacteria (Auto) (Negative) Nasal Screen MRSA (PCR) (Negative) 01/24/20 01/24/20 01/24/20 Range/Units 03:46 03:46 03:46 WBC (4.8-10.8) K/uL RBC (4.7-6.1) M/uL Hgb (14.0-18.0) g/dL Hct (42-52) % MCV (80-100) fL MCH (25-34) pg MCHC (32-36) g/dL RDW Std Deviation (36.4-46.3) fL RDW Coeff of Abi (11.5-14.5) % Plt Count (130-400) K/uL MPV (7.4-10.4) fL Immature Gran % (Auto) % Neut % (Auto) % Lymph % (Auto) % [place] % (Auto) % Eos % (Auto) % Baso % (Auto) % Immature Gran # (Auto) (0.00-0.02) K/uL Neut # (Auto) (1.4-6.5) K/uL Lymph # (Auto) (1.2-3.4) K/uL [place] # (Auto) (0.11-0.59) K/uL Eos # (Auto) (0-0.5) K/uL Baso # (Auto) (0-0.2) K/uL Absolute Nucleated RBC (0-0) K/uL Nucleated RBC % (auto) % PT (9.0-12.0) Seconds INR (0.9-1.1) APTT 29.6 (21.0-31.0) Seconds PTT Ratio 1.1 Sample Site POC pH (7.35-7.45) POC pCO2 (35-46) mmHg POC pO2 (80-95) mmHg POC HCO3 (19-24) mariah/L POC Total CO2 (24-31) mmol/L POC Base Excess (-9-1.8) mariah/L POC ABG O2 Sat (90-95) % Anuj Test O2 Delivery Device POC O2 Rate Minute Ventilation POC FiO2 % Tidal Volume PEEP Sodium 139 (136-145) mmol/L Potassium 4.8 (3.5-5.1) mmol/L Chloride 103 (98-107) mmol/L Carbon Dioxide 28 (21-32) mmol/L Anion Gap 8.0 (3-11) BUN 58 H (7-18) mg/dl Creatinine 1.59 H (0.6-1.4) mg/dl Est Cr Clr Drug Dosing 41.4 ml/min Est GFR ( Amer) 48.5 Est GFR (Non-Af Amer) 41.8 BUN/Creatinine Ratio 36.2 H (10-20) Glucose 280 H (70-99) mg/dl POC Glucose (70-99) mg/dl Lactate 5.6 H* (0.4-2.0) mmol/L Calcium 8.4 L (8.5-10.1) mg/dl Magnesium 2.8 H (1.8-2.4) mg/dl Total Bilirubin (0.2-1) mg/dl Direct Bilirubin (0-0.2) mg/dl AST (15-37) U/L ALT (12-78) U/L Alkaline Phosphatase (45-117) U/L Troponin I (0-0.045) ng/ml Total Protein (6.4-8.2) gm/dl Albumin (3.4-5.0) gm/dl Procalcitonin (0-0.5) ng/ml TSH 2.580 (0.300-4.500) uIu/ml Urine Color Urine Appearance (Clear) Urine pH (4.5-7.5) Ur Specific [place] (1.000-1.030) Urine Protein (Negative) Urine Glucose (UA) (Negative) Urine Ketones (Negative) Urine Blood (Negative) Urine Nitrite (Negative) Urine Bilirubin (Negative) Urine Urobilinogen (Negative) Ur Leukocyte Esterase (Negative) Urine WBC (Auto) (0-5) /hpf Urine RBC (Auto) (0-4) /hpf U Hyaline Cast (Auto) (0-5) /lpf U Epithel Cells (Auto) (0-5) /lpf Urine Bacteria (Auto) (Negative) Nasal Screen MRSA (PCR) (Negative) 01/24/20 01/24/20 01/24/20 Range/Units 03:46 03:46 03:45 WBC 11.02 H (4.8-10.8) K/uL RBC 4.68 L (4.7-6.1) M/uL Hgb 10.3 L (14.0-18.0) g/dL Hct 35.8 L (42-52) % MCV 76.5 L (80-100) fL MCH 22.0 L (25-34) pg MCHC 28.8 L (32-36) g/dL RDW Std Deviation 53.9 H (36.4-46.3) fL RDW Coeff of Abi 19.7 H (11.5-14.5) % Plt Count 304 (130-400) K/uL MPV 10.1 (7.4-10.4) fL Immature Gran % (Auto) 0.2 % Neut % (Auto) 87.7 % Lymph % (Auto) 7.5 % [place] % (Auto) 4.3 % Eos % (Auto) 0.2 % Baso % (Auto) 0.1 % Immature Gran # (Auto) 0.02 (0.00-0.02) K/uL Neut # (Auto) 9.67 H (1.4-6.5) K/uL Lymph # (Auto) 0.83 L (1.2-3.4) K/uL [place] # (Auto) 0.47 (0.11-0.59) K/uL Eos # (Auto) 0.02 (0-0.5) K/uL Baso # (Auto) 0.01 (0-0.2) K/uL Absolute Nucleated RBC 0.07 H (0-0) K/uL Nucleated RBC % (auto) 0.6 % PT 21.9 H (9.0-12.0) Seconds INR 2.2 H (0.9-1.1) APTT (21.0-31.0) Seconds PTT Ratio Sample Site POC pH (7.35-7.45) POC pCO2 (35-46) mmHg POC pO2 (80-95) mmHg POC HCO3 (19-24) mariah/L POC Total CO2 (24-31) mmol/L POC Base Excess (-9-1.8) mariah/L POC ABG O2 Sat (90-95) % Anuj Test O2 Delivery Device POC O2 Rate Minute Ventilation POC FiO2 % Tidal Volume PEEP Sodium (136-145) mmol/L Potassium (3.5-5.1) mmol/L Chloride (98-107) mmol/L Carbon Dioxide (21-32) mmol/L Anion Gap (3-11) BUN (7-18) mg/dl Creatinine (0.6-1.4) mg/dl Est Cr Clr Drug Dosing ml/min Est GFR ( Amer) Est GFR (Non-Af Amer) BUN/Creatinine Ratio (10-20) Glucose (70-99) mg/dl POC Glucose (70-99) mg/dl Lactate (0.4-2.0) mmol/L Calcium (8.5-10.1) mg/dl Magnesium (1.8-2.4) mg/dl Total Bilirubin (0.2-1) mg/dl Direct Bilirubin (0-0.2) mg/dl AST (15-37) U/L ALT (12-78) U/L Alkaline Phosphatase (45-117) U/L Troponin I (0-0.045) ng/ml Total Protein (6.4-8.2) gm/dl Albumin (3.4-5.0) gm/dl Procalcitonin 0.06 (0-0.5) ng/ml TSH (0.300-4.500) uIu/ml Urine Color Urine Appearance (Clear) Urine pH (4.5-7.5) Ur Specific [place] (1.000-1.030) Urine Protein (Negative) Urine Glucose (UA) (Negative) Urine Ketones (Negative) Urine Blood (Negative) Urine Nitrite (Negative) Urine Bilirubin (Negative) Urine Urobilinogen (Negative) Ur Leukocyte Esterase (Negative) Urine WBC (Auto) (0-5) /hpf Urine RBC (Auto) (0-4) /hpf U Hyaline Cast (Auto) (0-5) /lpf U Epithel Cells (Auto) (0-5) /lpf Urine Bacteria (Auto) (Negative) Nasal Screen MRSA (PCR) (Negative) 01/24/20 01/23/20 01/23/20 Range/Units 03:34 19:56 16:09 WBC (4.8-10.8) K/uL RBC (4.7-6.1) M/uL Hgb (14.0-18.0) g/dL Hct (42-52) % MCV (80-100) fL MCH (25-34) pg MCHC (32-36) g/dL RDW Std Deviation (36.4-46.3) fL RDW Coeff of Abi (11.5-14.5) % Plt Count (130-400) K/uL MPV (7.4-10.4) fL Immature Gran % (Auto) % Neut % (Auto) % Lymph % (Auto) % [place] % (Auto) % Eos % (Auto) % Baso % (Auto) % Immature Gran # (Auto) (0.00-0.02) K/uL Neut # (Auto) (1.4-6.5) K/uL Lymph # (Auto) (1.2-3.4) K/uL [place] # (Auto) (0.11-0.59) K/uL Eos # (Auto) (0-0.5) K/uL Baso # (Auto) (0-0.2) K/uL Absolute Nucleated RBC (0-0) K/uL Nucleated RBC % (auto) % PT (9.0-12.0) Seconds INR (0.9-1.1) APTT (21.0-31.0) Seconds PTT Ratio Sample Site POC pH (7.35-7.45) POC pCO2 (35-46) mmHg POC pO2 (80-95) mmHg POC HCO3 (19-24) mariah/L POC Total CO2 (24-31) mmol/L POC Base Excess (-9-1.8) mariah/L POC ABG O2 Sat (90-95) % Anuj Test O2 Delivery Device POC O2 Rate Minute Ventilation POC FiO2 % Tidal Volume PEEP Sodium (136-145) mmol/L Potassium (3.5-5.1) mmol/L Chloride (98-107) mmol/L Carbon Dioxide (21-32) mmol/L Anion Gap (3-11) BUN (7-18) mg/dl Creatinine (0.6-1.4) mg/dl Est Cr Clr Drug Dosing ml/min Est GFR ( Amer) Est GFR (Non-Af Amer) BUN/Creatinine Ratio (10-20) Glucose (70-99) mg/dl POC Glucose 300 H 211 H 168 H (70-99) mg/dl Lactate (0.4-2.0) mmol/L Calcium (8.5-10.1) mg/dl Magnesium (1.8-2.4) mg/dl Total Bilirubin (0.2-1) mg/dl Direct Bilirubin (0-0.2) mg/dl AST (15-37) U/L ALT (12-78) U/L Alkaline Phosphatase (45-117) U/L Troponin I (0-0.045) ng/ml Total Protein (6.4-8.2) gm/dl Albumin (3.4-5.0) gm/dl Procalcitonin (0-0.5) ng/ml TSH (0.300-4.500) uIu/ml Urine Color Urine Appearance (Clear) Urine pH (4.5-7.5) Ur Specific [place] (1.000-1.030) Urine Protein (Negative) Urine Glucose (UA) (Negative) Urine Ketones (Negative) Urine Blood (Negative) Urine Nitrite (Negative) Urine Bilirubin (Negative) Urine Urobilinogen (Negative) Ur Leukocyte Esterase (Negative) Urine WBC (Auto) (0-5) /hpf Urine RBC (Auto) (0-4) /hpf U Hyaline Cast (Auto) (0-5) /lpf U Epithel Cells (Auto) (0-5) /lpf Urine Bacteria (Auto) (Negative) Nasal Screen MRSA (PCR) (Negative) 01/23/20 Range/Units 11:25 WBC (4.8-10.8) K/uL RBC (4.7-6.1) M/uL Hgb (14.0-18.0) g/dL Hct (42-52) % MCV (80-100) fL MCH (25-34) pg MCHC (32-36) g/dL RDW Std Deviation (36.4-46.3) fL RDW Coeff of Abi (11.5-14.5) % Plt Count (130-400) K/uL MPV (7.4-10.4) fL Immature Gran % (Auto) % Neut % (Auto) % Lymph % (Auto) % [place] % (Auto) % Eos % (Auto) % Baso % (Auto) % Immature Gran # (Auto) (0.00-0.02) K/uL Neut # (Auto) (1.4-6.5) K/uL Lymph # (Auto) (1.2-3.4) K/uL [place] # (Auto) (0.11-0.59) K/uL Eos # (Auto) (0-0.5) K/uL Baso # (Auto) (0-0.2) K/uL Absolute Nucleated RBC (0-0) K/uL Nucleated RBC % (auto) % PT (9.0-12.0) Seconds INR (0.9-1.1) APTT (21.0-31.0) Seconds PTT Ratio Sample Site POC pH (7.35-7.45) POC pCO2 (35-46) mmHg POC pO2 (80-95) mmHg POC HCO3 (19-24) mariah/L POC Total CO2 (24-31) mmol/L POC Base Excess (-9-1.8) mariah/L POC ABG O2 Sat (90-95) % Anuj Test O2 Delivery Device POC O2 Rate Minute Ventilation POC FiO2 % Tidal Volume PEEP Sodium (136-145) mmol/L Potassium (3.5-5.1) mmol/L Chloride (98-107) mmol/L Carbon Dioxide (21-32) mmol/L Anion Gap (3-11) BUN (7-18) mg/dl Creatinine (0.6-1.4) mg/dl Est Cr Clr Drug Dosing ml/min Est GFR ( Amer) Est GFR (Non-Af Amer) BUN/Creatinine Ratio (10-20) Glucose (70-99) mg/dl POC Glucose 175 H (70-99) mg/dl Lactate (0.4-2.0) mmol/L Calcium (8.5-10.1) mg/dl Magnesium (1.8-2.4) mg/dl Total Bilirubin (0.2-1) mg/dl Direct Bilirubin (0-0.2) mg/dl AST (15-37) U/L ALT (12-78) U/L Alkaline Phosphatase (45-117) U/L Troponin I (0-0.045) ng/ml Total Protein (6.4-8.2) gm/dl Albumin (3.4-5.0) gm/dl Procalcitonin (0-0.5) ng/ml TSH (0.300-4.500) uIu/ml Urine Color Urine Appearance (Clear) Urine pH (4.5-7.5) Ur Specific [place] (1.000-1.030) Urine Protein (Negative) Urine Glucose (UA) (Negative) Urine Ketones (Negative) Urine Blood (Negative) Urine Nitrite (Negative) Urine Bilirubin (Negative) Urine Urobilinogen (Negative) Ur Leukocyte Esterase (Negative) Urine WBC (Auto) (0-5) /hpf Urine RBC (Auto) (0-4) /hpf U Hyaline Cast (Auto) (0-5) /lpf U Epithel Cells (Auto) (0-5) /lpf Urine Bacteria (Auto) (Negative) Nasal Screen MRSA (PCR) (Negative) Medications Administered Current Inpatient Medications Albuterol (Duoneb) 3 ml NEB Q6H PRN PRN Reason: Shortness Of Breath Or Wheezin Stop: 02/23/20 07:14 Aspirin (Ecotrin Ectab) 81 mg PO QAM [facility] Stop: 02/21/20 08:59 Last Admin: 01/23/20 07:55 Dose: 81 mg Documented by: Atorvastatin Calcium (Lipitor) 40 mg PO HS [facility] Stop: 02/20/20 20:59 Last Admin: 01/23/20 20:42 Dose: 40 mg Documented by: Bisacodyl (Dulcolax) 10 mg MO DAILY PRN PRN Reason: Constipation Stop: 02/21/20 18:24 Last Admin: 01/23/20 11:52 Dose: 10 mg Documented by: Dextrose (Dextrose 50%) 25 - 50 ml IV UD PRN; Protocol PRN Reason: Hypoglycemia Protocol Stop: 02/20/20 17:22 Fentanyl Citrate (Fentanyl Citrate) 12.5 mcg IV Q1H PRN PRN Reason: Pain Stop: 02/07/20 03:56 Fentanyl Citrate (Fentanyl Bolus From Bag) 50 mcg IV Q60M PRN PRN Reason: Pain or Agitation Stop: 02/07/20 08:54 Glucagon (Glucagen) 1 mg SQ UD PRN; Protocol PRN Reason: Hypoglycemia Protocol Stop: 02/20/20 17:22 Glucose (Dex4 Glucose) 4 - 8 tabs PO UD PRN; Protocol PRN Reason: Hypoglycemia Protocol Stop: 02/20/20 17:22 Glucose (Glucose 40%) 15 - 30 gm PO UD PRN; Protocol PRN Reason: Hypoglycemia Protocol Stop: 02/20/20 17:22 Epinephrine HCl 4 mg/ Dextrose 254 mls @ 0 mls/hr IV .Q0M [facility]; Protocol Stop: 02/23/20 03:29 Last Titration: 01/24/20 04:00 Dose: 0 mcg/kg/min, 0 mls/hr Documented by: Norepinephrine Bitartrate 8 mg (/ Dextrose) 508 mls @ 25.032 mls/hr IV .[id number] [facility]AHRA; Protocol Stop: 02/23/20 03:59 Last Titration: 01/24/20 07:16 Dose: 0.075 mcg/kg/min, 25 mls/hr Documented by: Promethazine HCl 12.5 mg/ (Sodium Chloride) 50.5 mls @ 202 mls/hr IV Q6H PRN PRN Reason: Nausea And Vomiting Stop: 02/23/20 03:56 Acetaminophen (Ofirmev) 1,000 mg in 100 mls @ 400 mls/hr IV Q8H PRN PRN Reason: fever/pain Stop: 01/27/20 03:56 Propofol (Diprivan) 1,000 mg in 100 mls @ 15.768 mls/hr IV .Q6H21M [facility]AHRA; P rotocol Stop: 01/27/20 04:29 Last Titration: 01/24/20 07:13 Dose: 30 mcg/kg/min, 15.8 mls/hr Documented by: Piperacillin Sod/Tazobactam (Sod 4.5 gm/ Dextrose) 120 mls @ 30 mls/hr IV Q8H [facility]RA; Protocol Stop: 01/26/20 09:59 Fentanyl Citrate (Fentanyl Drip) 1,250 mcg in 250 mls @ 5 mls/hr IV .Q24H [facility]RA; Protocol Stop: 02/07/20 08:59 Insulin Aspart (Novolog Flexpen) 0 units SC Q6 [facility] Stop: 02/23/20 04:59 Last Admin: 01/24/20 05:40 Dose: 4 units Documented by: Miscellaneous (Carbohydrates For Hypoglycemia) 15 - 30 gm PO UD PRN PRN Reason: Hypoglycemia Protocol Stop: 02/20/20 17:22 Miscellaneous (Icu Protocol For Hyperglycemia) 1 ea N/A PRN PRN; Protocol PRN Reason: Hyperglycemia Protocol Stop: 01/26/20 04:21 Miscellaneous Information (Consult) 1 ea N/A UD PRN PRN Reason: Consult Stop: 02/23/20 04:59 Miscellaneous Information (Consult) 1 ea N/A UD PRN PRN Reason: Consult Stop: 02/23/20 04:59 Nitroglycerin (Nitrostat) 0.4 mg SL UD PRN PRN Reason: Chest Pain Stop: 02/20/20 16:57 Propofol (Diprivan Bolus From Bag) 20 mg IV Q5M PRN PRN Reason: Sedation Stop: 01/27/20 04:20 Senna/Docusate Sodium (Senokot S) 1 tab PO QAM [facility] Stop: 02/23/20 08:59 (1) Anemia Anemia type: unspecified type Qualified Code(s): D64.9 - Anemia, unspecified (2) Atrial fibrillation Atrial fibrillation type: permanent Qualified Code(s): I48.21 - Permanent atrial fibrillation (3) CKD (chronic kidney disease) Chronic kidney disease stage: unspecified stage Qualified Code(s): N18.9 - Chronic kidney disease, unspecified (4) Constipation Constipation type: unspecified constipation type Qualified Code(s): K59.00 - Constipation, unspecified
[2020-01-24] MEDS ORDERED: Nursing to Pharmacy Communication ONE (10:26)
[2020-01-24] MEDS: fentaNYL DRIP 1,250 MCG/250 ML BAG IV SCH (10:28)
[2020-01-24] MEDS: PIPERACILLIN/TAZOBACTAM 4.5 GM in DEXTROSE 5% 100 ML IV SCH ×2 (10:29→17:30)
[2020-01-24 10:36] LABS: Albumin Level 2.4 gm/dl (3.4-5.0); BUN Creatinine Ratio 43.7 (10-20); Calcium 8.2 mg/dl (8.5-10.1); Creatinine Clr Calc Pharmacy 47.4 ml/min; Est GFR (African American) 57.1; Est GFR (Non-African American) 49.2; Potassium 4.2 mmol/L (3.5-5.1)
[2020-01-24 10:39] LABS: Albumin Globulin Ratio 0.6 (0.9-2); Bilirubin,Total 1.4 mg/dl (0.2-1); Globulin 4.2 gm/dl (2.5-4.0); Total Protein 6.6 gm/dl (6.4-8.2)
--- NOTE | 2020-01-24 10:55 | Electrocardiogram Report ---
Test Reason : Blood Pressure : / mmHG Vent. Rate : 149 BPM Atrial Rate : 156 BPM P-R Int : 000 ms QRS Dur : 160 ms QT Int : 316 ms P-R-T Axes : 000 261 038 degrees QTc Int : 497 ms Atrial fibrillation with rapid ventricular response with premature ventricular or aberrantly conducte d complexes Right bundle branch block Inferior infarct , age undetermined Abnormal ECG When compared with ECG of 22-Jan-2020 Significant changes have occurred Confirmed by Andrew Morejon ([id number]) on 01/24/2020 10:54:58 AM Referred By: Barrera Puri Confirmed By:Andrew Morejon
[2020-01-24] MEDS ORDERED: DOCUSATE SODIUM SYRUP 100 MG/10 ML UDC PO SCH (11:00)
[2020-01-24] MEDS: ASPIRIN 81 MG ECTAB PO SCH (11:06)
[2020-01-24] MEDS: ASPIRIN 81 MG CHEW PO SCH (11:16)
[2020-01-24] MEDS: DOCUSATE SODIUM SYRUP 100 MG/10 ML UDC PO SCH (11:16)
[2020-01-24] MEDS: SENNA 8.8 MG/5 ML UDP PO SCH (11:17)
--- NOTE | 2020-01-24 13:20 | Cardiology Progress Note ---
Date of Service January 24, 2020 Assessment & Plan (1) Shock: (2) Respiratory failure: (3) Acute on chronic systolic (congestive) heart failure: (4) Atrial fibrillation: (5) CKD (chronic kidney disease): (6) Constipation: Patient transferred to ICU secondary to acute hypoxic respiratory failure, shock, and unresponsiveness. Repeat resting 2D transthoracic echocardiogram demonstrates normally functioning TAVR with severely reduced LV systolic function. Ejection fraction is not significantly changed when directly compared to prior echocardiogram performed in October. Patient remains in atrial fibrillation with frequent ventricular ectopy with fair rate control. INR is therapeutic without signs/symptoms of active bleeding/blood loss. Hemoglobin is stable with elevated WBCs today. There is evidence of large right pleural effusion on CT. Consider thoracentesis per discretion of pulmonary medicine. Diuretics currently on hold due to hypotension. Empiric antibiotics initiated per critical care medicine. Cultures pending at this time. Poor prognosis. updated regarding clinical status via telephone. Subjective Patient seen and examined the bedside in the intensive care unit. CANDICE MCGINNIS called on patient last night due to unresponsiveness. He was intubated and placed on vasopressors. Currently sedated with fentanyl and propofol. Currently patient hemodynamically stable and sedated on the ventilator. Oxygen requirements are low. CT of the chest demonstrates a large right-sided pleural effusion. Repeat bedside echocardiogram demonstrates severe LV systolic dysfunction, however, not significantly changed when directly compared to prior echocardiogram performed October 2019. No fevers recorded. Blood cultures pending at this time. Review of Systems Review of Systems: All systems reviewed & are unremarkable except as noted in HPI & below Physical Exam Constitutional: + ill appearing and + obese Respiratory: Auscultation: + diminished lung sounds (Right-sided); no crackles, no rales, no rhonchi (Coarse breath sounds bilaterally) and no wheezes Cardiovascular: Rate/Rhythm: + irregularly irregular Heart Sounds: normal S1 and normal S2; no murmur and no cardiac rub Vessels: no JVD and no carotid bruit Extremities: + edema (Trace bilateral pedal edema) Gastrointestinal (Abdomen): Inspection/Auscultation: abdomen normal to inspection and normal bowel sounds; abdomen not distended Percussion/Palpation: abdomen soft; abdomen nontender, no guarding and abdomen not rigid Skin: no rashes, warm and dry Neurologic: Patient currently sedated and intubated. Results & Data Vital Signs (Past 12 Hours) Vital Signs Temp Pulse Resp BP Pulse Ox 01/24/20 12:04 95 H 94/41 L 99 01/24/20 11:32 98 H 111/60 98 01/24/20 11:26 36.7 C 93 H 100/62 100 01/24/20 11:20 99 H 16 96 01/24/20 10:53 107 H 143/44 H 97 01/24/20 10:50 99 H 98/72 L 97 01/24/20 10:33 99 H 108/27 L 98 01/24/20 10:12 101 H 105/57 L 96 01/24/20 10:05 108 H 115/56 L 96 01/24/20 09:42 102 H 97/63 L 96 01/24/20 09:32 95 H 93/65 L 95 01/24/20 09:22 84 99/64 L 95 01/24/20 09:02 91 H 95/65 L 96 01/24/20 08:53 99 H 87/64 L 95 01/24/20 08:42 103 H 119/63 96 01/24/20 08:32 87 87/66 L 96 01/24/20 08:29 99 H 96/68 L 97 01/24/20 08:17 92 H 95/55 L 98 01/24/20 08:12 95 H 61/42 L 99 01/24/20 08:01 88 97/63 L 98 01/24/20 08:00 95 H 01/24/20 07:52 36.5 C 92 H 79/61 L 98 01/24/20 07:41 92 H 114/64 100 01/24/20 07:32 94 H 90/48 L 100 01/24/20 07:25 95 H 16 100 01/24/20 07:22 100 H 101/48 L 100 01/24/20 07:12 96 H 108/50 L 100 01/24/20 07:02 97 H 73/45 L 100 01/24/20 06:51 93 H 111/72 100 01/24/20 06:42 91 H 92/58 L 100 01/24/20 06:31 100 H 132/60 100 01/24/20 06:22 98 H 108/66 100 01/24/20 06:12 95 H 121/64 100 01/24/20 06:01 103 H 112/80 100 01/24/20 05:52 105 H 87/75 L 100 01/24/20 05:42 104 H 101/88 100 01/24/20 05:37 106 H 71/46 L 01/24/20 05:31 97 H 70/50 L 100 01/24/20 05:21 105 H 81/52 L 100 01/24/20 05:11 105 H 90/59 L 100 01/24/20 05:02 103 H 108/67 100 01/24/20 04:57 90/67 L 01/24/20 04:21 128 H 127/106 H 100 01/24/20 04:14 113 H 111/82 100 01/24/20 04:01 120 H 108/79 100 01/24/20 03:51 138 H 149/96 H 01/24/20 03:46 136 H 150/119 H 01/24/20 03:45 36.7 C 137 H 100 (1) Atrial fibrillation Atrial fibrillation type: permanent Qualified Code(s): I48.21 - Permanent atrial fibrillation (2) CKD (chronic kidney disease) Chronic kidney disease stage: unspecified stage Qualified Code(s): N18.9 - Chronic kidney disease, unspecified (3) Respiratory failure Chronicity: acute on chronic Respiratory failure complication: hypoxia Qualified Code(s): J96.21 - Acute and chronic respiratory failure with hypoxia (4) Constipation Constipation type: unspecified constipation type Qualified Code(s): K59.00 - Constipation, unspecified
--- NOTE | 2020-01-24 15:11 | Pharmacy Report ---
Pharmacy Abx Initial Consult - Date of Service January 24, 2020 - Pharmacy Dosing Scope Date of Consult: 01/24/20 Consultation requested by: Sonny SY Pharmacy is consulted to initiate vancomycin and Zosyn IV dosing therapy, order appropriate labs and adjust drug dose/frequency. - Subjective The patient is a 75 year old M admitted on 01/21/20 15:05. - Objective Height: 5 ft 10 in Weight: 82.2 kg Vital Signs (Past 12hrs): Vital Signs Temp Pulse Resp BP Pulse Ox 01/24/20 13:35 91 H 16 94 01/24/20 12:04 95 H 94/41 L 99 01/24/20 11:32 98 H 111/60 98 01/24/20 11:26 36.7 C 93 H 100/62 100 01/24/20 11:20 99 H 16 96 01/24/20 10:53 107 H 143/44 H 97 01/24/20 10:50 99 H 98/72 L 97 01/24/20 10:33 99 H 108/27 L 98 01/24/20 10:12 101 H 105/57 L 96 01/24/20 10:05 108 H 115/56 L 96 01/24/20 09:42 102 H 97/63 L 96 01/24/20 09:32 95 H 93/65 L 95 01/24/20 09:22 84 99/64 L 95 01/24/20 09:02 91 H 95/65 L 96 01/24/20 08:53 99 H 87/64 L 95 01/24/20 08:42 103 H 119/63 96 01/24/20 08:32 87 87/66 L 96 01/24/20 08:29 99 H 96/68 L 97 01/24/20 08:17 92 H 95/55 L 98 01/24/20 08:12 95 H 61/42 L 99 01/24/20 08:01 88 97/63 L 98 01/24/20 08:00 95 H 01/24/20 07:52 36.5 C 92 H 79/61 L 98 01/24/20 07:41 92 H 114/64 100 01/24/20 07:32 94 H 90/48 L 100 01/24/20 07:25 95 H 16 100 01/24/20 07:22 100 H 101/48 L 100 01/24/20 07:12 96 H 108/50 L 100 01/24/20 07:02 97 H 73/45 L 100 01/24/20 06:51 93 H 111/72 100 01/24/20 06:42 91 H 92/58 L 100 01/24/20 06:31 100 H 132/60 100 01/24/20 06:22 98 H 108/66 100 01/24/20 06:12 95 H 121/64 100 01/24/20 06:01 103 H 112/80 100 01/24/20 05:52 105 H 87/75 L 100 01/24/20 05:42 104 H 101/88 100 01/24/20 05:37 106 H 71/46 L 100 01/24/20 05:31 97 H 70/50 L 100 01/24/20 05:21 105 H 81/52 L 100 01/24/20 05:11 105 H 90/59 L 100 01/24/20 05:02 103 H 108/67 100 01/24/20 04:57 90/67 L 100 01/24/20 04:21 128 H 127/106 H 100 01/24/20 04:14 113 H 111/82 100 01/24/20 04:01 120 H 108/79 100 01/24/20 03:51 138 H 149/96 H 100 01/24/20 03:46 136 H 150/119 H 100 01/24/20 03:45 36.7 C 137 H 100 Lab Results (24hrs): Laboratory Tests (24 Hours) 01/24/20 01/24/20 01/24/20 10:10 10:10 03:46 WBC Neut # (Auto) Creatinine 1.39 1.59 H Est Cr Clr Drug Dosing 47.4 41.4 Procalcitonin 0.18 01/24/20 01/24/20 03:46 03:45 WBC 11.02 H Neut # (Auto) 9.67 H Creatinine Est Cr Clr Drug Dosing Procalcitonin 0.06 Micro Results: 01/24/20 05:12 Aerobic Blood Culture - Pending Blood Anaerobic Blood Culture - Pending 01/24/20 05:05 Aerobic Blood Culture - Pending Blood Anaerobic Blood Culture - Pending - Assessment & Plan Assessment 75 year old M ordered empiric vancomycin and Zosyn following a code blue last evening. Septic shock not ruled out - lactate of 5.6 at that time. Patient intubated - fentanyl, propofol, and norepinephrine currently infusing. Chest/abdominal/head CT scans done performed this morning - bilateral pleural effusions, bilateral lower lobe consolidative change, and abdominal/pelvic ascites noted. Blood cultures x 2 pending. Mild leukocytosis (WBC: 11.02). Patient afebrile. MRSA nasal swab negative. Plan Vancomycin IV * Estimated PK Parameters: Vd 0.7 L/kg, Collin 0.043 hr-1, t1/2 16 hr * Loading dose: 2000 mg (23 mg/kg) * Maintenance dose: 1000 mg IV (12 mg/kg) every 18 hours * Goal trough level for sepsis : 15 to 20 mcg/mL * Will order vanco trough if patient is to remain on antibiotics beyond 48 hours Piperacillin/tazobactam * 4.5 g bolus administered over 30 minutes, then 4.5 g IV extended infusion every 8 hours for CrCl greater than 20 mL/min Pharmacy will continue to follow and will adjust dose/frequency as necessary. Thank you.
[2020-01-24] MEDS: bisacodyL 10 MG SUPP PR PRN (17:30)
[2020-01-24] MEDS: FAMOTIDINE 20 MG TAB PO SCH (21:25)
[2020-01-24] MEDS: ATORVASTATIN 40 MG TAB PO SCH (21:41)
[2020-01-25] MEDS ORDERED: VANCOMYCIN HCL 1,000 MG in SODIUM CHLORIDE 0.9% 250 ML IV SCH
[2020-01-25] MEDS: INSULIN ASPART 100 UNITS/ML 3 ML PEN SC SCH ×5 (00:21→23:50)
[2020-01-25] MEDS: PIPERACILLIN/TAZOBACTAM 4.5 GM in DEXTROSE 5% 100 ML IV SCH ×2 (01:43→07:55)
[2020-01-25] MEDS: propofoL 1,000 MG/100 ML VIAL IV SCH ×4 (02:48→23:49)
[2020-01-25 04:18] LABS: Basophils # (auto) 0.02 K/uL (0-0.2); Basophils % (auto) 0.2 %; Eosinophils # (auto) 0.14 K/uL (0-0.5); Eosinophils % (auto) 1.1 %; Hematocrit (blood only) 28.6 % (42-52); Hemoglobin 8.5 g/dL (14.0-18.0); Immature Granulocytes # (auto) 0.03 K/uL (0.00-0.02); Immature Granulocytes % (auto) 0.2 %; Lymphocytes # (auto) 0.43 K/uL (1.2-3.4); Lymphocytes % (auto) 3.5 %; Mean Corpuscular Hemoglobin 21.9 pg (25-34); Mean Corpuscular Hgb Conc 29.7 g/dL (32-36); Mean Corpuscular Volume 73.7 fL (80-100); Mean Platelet Volume 9.7 fL (7.4-10.4); Monocytes # (auto) 0.69 K/uL (0.11-0.59); Monocytes % (auto) 5.6 %; Neutrophils # (auto) 10.96 K/uL (1.4-6.5); Neutrophils % (auto) 89.4 %; Platelet Count 224 K/uL (130-400); RDW Coefficient of Variation 19.7 % (11.5-14.5); RDW Standard Deviation 52.9 fL (36.4-46.3); Red Blood Count 3.88 M/uL (4.7-6.1); White Blood Count 12.27 K/uL (4.8-10.8)
[2020-01-25 04:30] LABS: INR 2.6 (0.9-1.1); Partial Thromboplastin Ratio 1.3; Partial Thromboplastin Time 35.4 Seconds (21.0-31.0); Prothrombin Time 26.3 Seconds (9.0-12.0)
[2020-01-25 04:38] LABS: BUN Creatinine Ratio 37.6 (10-20); Calcium 7.8 mg/dl (8.5-10.1); Creatinine Clr Calc Pharmacy 44.8 ml/min; Est GFR (African American) 53.3; Potassium 4.1 mmol/L (3.5-5.1)
[2020-01-25 04:41] LABS: Albumin Globulin Ratio 0.6 (0.9-2); Bilirubin,Total 1.5 mg/dl (0.2-1); Globulin 3.5 gm/dl (2.5-4.0); Total Protein 5.5 gm/dl (6.4-8.2)
[2020-01-25] MEDS ORDERED: FUROSEMIDE 40 MG in SYRINGE 0 ML IV ONE ×2 (04:46→18:25)
[2020-01-25 04:53] LABS: Echinocytes 1+; Hypochromasia Present; Ovalocytes 1+; Spherocytes 2+
[2020-01-25] MEDS ORDERED: FUROSEMIDE 40 MG/4 ML VIAL IV ONE (05:00)
[2020-01-25 05:43] LABS: iSTAT Allen Test Pass; iSTAT Arterial Blood Gas HCO3 27 meg/L (19-24); iSTAT Arterial Blood Gas pCO2 31 mmHg (35-46); iSTAT Arterial Blood Gas pH 7.55 (7.35-7.45); iSTAT Arterial Blood Gas pO2 61 mmHg (80-95); iSTAT Carbon Dioxide 28 mmol/L (24-31); iSTAT FiO2 30 %; iSTAT Site L Radial
--- NOTE | 2020-01-25 06:54 | XRay Report ---
XR chest 1V portable CLINICAL HISTORY: Respiratory failure COMPARISON STUDY: 01/24/2020 FINDINGS: There are postsurgical changes of a midline sternotomy. There is a nasogastric tube which p asses into the stomach. There is an endotracheal tube 5.37 m above the derrell. There are persistent b ilateral pleural effusions right greater than left. There are bilateral pulmonary airspace opacities likely representing pulmonary edema although a superimposed infectious/inflammatory processes could a ppear similar. There are left hilar calcifications versus pleural calcifications. A right mid to uppe r lung zone opacity, likely represents a summation is no nodule was visualized in the prior study.[ IMPRESSION: Persistent pulmonary edema pattern. Bilateral lower lung zone airspace opacities likely r epresenting compressive atelectasis although a superimposed infectious/inflammatory process could rosa ear similar ACT 112: Negative or not required by law. Electronically signed by: Travon Sim M.D. 01/25/2020 6:53 AM
[2020-01-25] MEDS: FAMOTIDINE 20 MG TAB PO SCH ×2 (07:46→20:50)
[2020-01-25] MEDS: ASPIRIN 81 MG CHEW PO SCH (07:50)
--- NOTE | 2020-01-25 08:34 | Critical Care Progress Note ---
Date of Service January 25, 2020 Assessment & Plan (1) Shock: Reason Critically Ill: 75-year-old male presents to the ICU following CODE BLUE which the patient was hypotensive and required intubation, now on ventilator and vasopressors. 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 fib (chronic) History of aortic stenosisstatus post TAVR and MVR in 2017 Ischemic cardiomyopathy -Discussed with Dr. Villarreal - Respiratory - Hypoxic respiratory failure, acute on chronicpatient wears 2 L nasal cannula at baseline Chronic right-sided pleural effusion Acute respiratory failure -Minimal vent settings, following command, discussed with , terminal extubation without reintubation in event of respiratory insufficiency GI - N.p.o. Recent history cholelithiasis/cholangitispatient underwent the ERCP in November -LFTs mildly elevated but at baseline -CT abdomen unremarkable for acute process, findings are consistent with hepatic cirrhosis and mild to moderate abdominal and pelvic ascites Constipationresolved after manual disimpaction and subsequent bowel movement RENAL/LYTES - MARISA on CKDmild elevation in creatinine for today -No additional diuresis - Foleystrict I's and O's ENDO - DM type IIICU hyperglycemic protocol -Continue sliding scale TSH within normal limits HEME - H&H stable, monitor routine CBCs Supratherapeutic INR ID - Sepsis Continue Zosyn -Discontinue vancomycin LINES/IV ACCESS - Central venous line, ETT, OGt, PIV's, [place] DVT PROPHYLAXIS - SCDs, on warfarin (2) Constipation: (3) Acute on chronic systolic (congestive) heart failure: (4) CKD (chronic kidney disease): (5) Aortic stenosis: (6) Respiratory failure: (7) MARISA (acute kidney injury): (8) History of aortic valve replacement: (9) Ischemic cardiomyopathy: (10) Diabetes mellitus, type II: (11) Stroke: (12) Coronary artery disease: (13) Atrial fibrillation: (14) Hypotension: (15) AMS (altered mental status): Admission and Anticipated Discharge Date Admission Date: January 21, 2020 Supervising Physician Co-Signing Physician Notes I had an extensive discussion with the patient's regarding goals of care. She was able to supply the patient's living will, advanced directive, he indicated he would want cardiac resuscitation however he did not want intubation, mechanical ventilation, fluids, nutrition. stated after his most recent surgery he absolutely did not want a breathing tube, at this time I feel we have resuscitated the patient according to his wishes, in event of respiratory insufficiency he would not want reintubated, at this point we will proceed with a extubation without plans for reintubation in event of respiratory insufficiency. We will also treat this as a no escalation of care with any additional aggressive procedures or invasive lines. I discussed the risks and benefits of thoracentesis to increase pulmonary reserve/as a palliative procedure, it is chronic, and I am unsure if given the chronic nature he would have additional reserve with thoracentesis, the indicated she preferred to have the breathing tube out as opposed to waiting for a thoracentesis which would undoubtedly reaccumulate. At this point I have updated the patient's CODE STATUS. He is certainly critically ill and tenuous, if he experiences hypoxic or high Respiratory failure we will quickly transition to comfort measures only. Subjective No overnight events. From signout the patient's reported the patient would not have wanted intubation, she will be presenting later with Living will. Is unclear whether this would be a terminal extubation and transition to comfort or terminal extubation with no escalation of care. Palliative care was consulted by Abdirahman SY Review of Systems Review of Systems: Unobtainable due to endotracheal tube Physical Exam Physical Exam: General: Sedated. nontoxic. Skin: Warm, dry, Head: Atraumatic Ears, nose, mouth and throat: Obscured by endotracheal tube Cardiovascular: Normal peripheral perfusion Respiratory: no respiratory distress Gastrointestinal: Non distended Musculoskeletal: No deformity Results & Data Results & Data ([facility]) Vital Signs (Past 12 Hours) Vital Signs Temp Pulse Resp BP Pulse Ox 01/25/20 06:55 97 H 13 97 01/25/20 06:00 93 H 14 166/94 H 100 01/25/20 05:15 91 H 16 98 01/25/20 05:04 96 H 16 113/87 100 01/25/20 04:30 97 H 16 134/81 100 01/25/20 04:00 36.6 C 93 H 16 136/75 100 01/25/20 03:22 92 H 16 131/67 98 01/25/20 02:40 101 H 16 100/53 L 100 01/25/20 02:15 93 H 16 100 01/25/20 02:04 90 16 107/94 94 01/25/20 01:49 102 H 16 111/92 96 01/25/20 01:24 96 H 16 137/92 96 01/25/20 01:00 91 H 17 93 01/25/20 00:46 94 H 16 134/114 H 100 01/25/20 00:30 102 H 16 100 01/25/20 00:00 99 H 16 146/87 H 100 01/24/20 23:37 102 H 16 144/88 H 100 01/24/20 23:00 104 H 16 139/99 100 01/24/20 22:30 101 H 16 100 01/24/20 22:00 97 H 100 01/24/20 21:46 104 H 105/63 100 01/24/20 21:30 107 H 100 01/24/20 21:00 97 H 96/76 L 100 01/24/20 20:30 95 H 100 Laboratory Results 01/25/20 01/25/20 01/25/20 Range/Units 05:57 05:29 03:59 WBC (4.8-10.8) K/uL RBC (4.7-6.1) M/uL Hgb (14.0-18.0) g/dL Hct (42-52) % MCV (80-100) fL MCH (25-34) pg MCHC (32-36) g/dL RDW Std Deviation (36.4-46.3) fL RDW Coeff of Abi (11.5-14.5) % Plt Count (130-400) K/uL MPV (7.4-10.4) fL Immature Gran % (Auto) % Neut % (Auto) % Lymph % (Auto) % [place] % (Auto) % Eos % (Auto) % Baso % (Auto) % Immature Gran # (Auto) (0.00-0.02) K/uL Neut # (Auto) (1.4-6.5) K/uL Lymph # (Auto) (1.2-3.4) K/uL [place] # (Auto) (0.11-0.59) K/uL Eos # (Auto) (0-0.5) K/uL Baso # (Auto) (0-0.2) K/uL Hypochromasia Spherocytes Ovalocytes Echinocytes PT (9.0-12.0) Seconds INR (0.9-1.1) APTT (21.0-31.0) Seconds PTT Ratio Sample Site L Radial POC pH 7.55 H* (7.35-7.45) POC pCO2 31 L (35-46) mmHg POC pO2 61 L (80-95) mmHg POC HCO3 27 H (19-24) mariah/L POC Total CO2 28 (24-31) mmol/L POC Base Excess 5.0 H (-9-1.8) mariah/L POC ABG O2 Sat 94.0 (90-95) % Anuj Test Pass O2 Delivery Device Ventilator POC O2 Rate 16 Minute Ventilation 6.7 POC FiO2 30 % Tidal Volume 450 PEEP 5 Sodium (136-145) mmol/L Potassium (3.5-5.1) mmol/L Chloride (98-107) mmol/L Carbon Dioxide (21-32) mmol/L Anion Gap (3-11) BUN (7-18) mg/dl Creatinine (0.6-1.4) mg/dl Est Cr Clr Drug Dosing ml/min Est GFR ( Amer) Est GFR (Non-Af Amer) BUN/Creatinine Ratio (10-20) Glucose (70-99) mg/dl POC Glucose 195 H (70-99) mg/dl POC Glucose (other) (70-99) mg/dl Lactate (0.4-2.0) mmol/L Calcium (8.5-10.1) mg/dl Total Bilirubin (0.2-1) mg/dl AST (15-37) U/L ALT (12-78) U/L Alkaline Phosphatase (45-117) U/L Total Protein (6.4-8.2) gm/dl Albumin (3.4-5.0) gm/dl Globulin (2.5-4.0) gm/dl Albumin/Globulin Ratio (0.9-2) Procalcitonin Pending (0-0.5) ng/ml 01/25/20 01/25/20 01/25/20 Range/Units 03:59 03:59 03:59 WBC 12.27 H (4.8-10.8) K/uL RBC 3.88 L (4.7-6.1) M/uL Hgb 8.5 L (14.0-18.0) g/dL Hct 28.6 L (42-52) % MCV 73.7 L (80-100) fL MCH 21.9 L (25-34) pg MCHC 29.7 L (32-36) g/dL RDW Std Deviation 52.9 H (36.4-46.3) fL RDW Coeff of Abi 19.7 H (11.5-14.5) % Plt Count 224 (130-400) K/uL MPV 9.7 (7.4-10.4) fL Immature Gran % (Auto) 0.2 % Neut % (Auto) 89.4 % Lymph % (Auto) 3.5 % [place] % (Auto) 5.6 % Eos % (Auto) 1.1 % Baso % (Auto) 0.2 % Immature Gran # (Auto) 0.03 H (0.00-0.02) K/uL Neut # (Auto) 10.96 H (1.4-6.5) K/uL Lymph # (Auto) 0.43 L (1.2-3.4) K/uL [place] # (Auto) 0.69 H (0.11-0.59) K/uL Eos # (Auto) 0.14 (0-0.5) K/uL Baso # (Auto) 0.02 (0-0.2) K/uL Hypochromasia Present Spherocytes 2+ Ovalocytes 1+ Echinocytes 1+ PT 26.3 H (9.0-12.0) Seconds INR 2.6 H (0.9-1.1) APTT 35.4 H (21.0-31.0) Seconds PTT Ratio 1.3 Sample Site POC pH (7.35-7.45) POC pCO2 (35-46) mmHg POC pO2 (80-95) mmHg POC HCO3 (19-24) mariah/L POC Total CO2 (24-31) mmol/L POC Base Excess (-9-1.8) mariah/L POC ABG O2 Sat (90-95) % Anuj Test O2 Delivery Device POC O2 Rate Minute Ventilation POC FiO2 % Tidal Volume PEEP Sodium 141 (136-145) mmol/L Potassium 4.1 (3.5-5.1) mmol/L Chloride 105 (98-107) mmol/L Carbon Dioxide 29 (21-32) mmol/L Anion Gap 7.0 (3-11) BUN 55 H (7-18) mg/dl Creatinine 1.47 H (0.6-1.4) mg/dl Est Cr Clr Drug Dosing 44.8 ml/min Est GFR ( Amer) 53.3 Est GFR (Non-Af Amer) 46.0 BUN/Creatinine Ratio 37.6 H (10-20) Glucose 168 H (70-99) mg/dl POC Glucose (70-99) mg/dl POC Glucose (other) (70-99) mg/dl Lactate (0.4-2.0) mmol/L Calcium 7.8 L (8.5-10.1) mg/dl Total Bilirubin 1.5 H (0.2-1) mg/dl AST 12 L (15-37) U/L ALT 14 (12-78) U/L Alkaline Phosphatase 80 (45-117) U/L Total Protein 5.5 L (6.4-8.2) gm/dl Albumin 2.0 L (3.4-5.0) gm/dl Globulin 3.5 (2.5-4.0) gm/dl Albumin/Globulin Ratio 0.6 L (0.9-2) Procalcitonin (0-0.5) ng/ml 01/25/20 01/24/20 01/24/20 Range/Units 00:16 17:36 11:34 WBC (4.8-10.8) K/uL RBC (4.7-6.1) M/uL Hgb (14.0-18.0) g/dL Hct (42-52) % MCV (80-100) fL MCH (25-34) pg MCHC (32-36) g/dL RDW Std Deviation (36.4-46.3) fL RDW Coeff of Abi (11.5-14.5) % Plt Count (130-400) K/uL MPV (7.4-10.4) fL Immature Gran % (Auto) % Neut % (Auto) % Lymph % (Auto) % [place] % (Auto) % Eos % (Auto) % Baso % (Auto) % Immature Gran # (Auto) (0.00-0.02) K/uL Neut # (Auto) (1.4-6.5) K/uL Lymph # (Auto) (1.2-3.4) K/uL [place] # (Auto) (0.11-0.59) K/uL Eos # (Auto) (0-0.5) K/uL Baso # (Auto) (0-0.2) K/uL Hypochromasia Spherocytes Ovalocytes Echinocytes PT (9.0-12.0) Seconds INR (0.9-1.1) APTT (21.0-31.0) Seconds PTT Ratio Sample Site POC pH (7.35-7.45) POC pCO2 (35-46) mmHg POC pO2 (80-95) mmHg POC HCO3 (19-24) mariah/L POC Total CO2 (24-31) mmol/L POC Base Excess (-9-1.8) mariah/L POC ABG O2 Sat (90-95) % Anuj Test O2 Delivery Device POC O2 Rate Minute Ventilation POC FiO2 % Tidal Volume PEEP Sodium (136-145) mmol/L Potassium (3.5-5.1) mmol/L Chloride (98-107) mmol/L Carbon Dioxide (21-32) mmol/L Anion Gap (3-11) BUN (7-18) mg/dl Creatinine (0.6-1.4) mg/dl Est Cr Clr Drug Dosing ml/min Est GFR ( Amer) Est GFR (Non-Af Amer) BUN/Creatinine Ratio (10-20) Glucose (70-99) mg/dl POC Glucose (70-99) mg/dl POC Glucose (other) 164 H 162 H 195 H (70-99) mg/dl Lactate (0.4-2.0) mmol/L Calcium (8.5-10.1) mg/dl Total Bilirubin (0.2-1) mg/dl AST (15-37) U/L ALT (12-78) U/L Alkaline Phosphatase (45-117) U/L Total Protein (6.4-8.2) gm/dl Albumin (3.4-5.0) gm/dl Globulin (2.5-4.0) gm/dl Albumin/Globulin Ratio (0.9-2) Procalcitonin (0-0.5) ng/ml 01/24/20 01/24/20 01/24/20 Range/Units 10:10 10:10 10:10 WBC (4.8-10.8) K/uL RBC (4.7-6.1) M/uL Hgb (14.0-18.0) g/dL Hct (42-52) % MCV (80-100) fL MCH (25-34) pg MCHC (32-36) g/dL RDW Std Deviation (36.4-46.3) fL RDW Coeff of Abi (11.5-14.5) % Plt Count (130-400) K/uL MPV (7.4-10.4) fL Immature Gran % (Auto) % Neut % (Auto) % Lymph % (Auto) % [place] % (Auto) % Eos % (Auto) % Baso % (Auto) % Immature Gran # (Auto) (0.00-0.02) K/uL Neut # (Auto) (1.4-6.5) K/uL Lymph # (Auto) (1.2-3.4) K/uL [place] # (Auto) (0.11-0.59) K/uL Eos # (Auto) (0-0.5) K/uL Baso # (Auto) (0-0.2) K/uL Hypochromasia Spherocytes Ovalocytes Echinocytes PT (9.0-12.0) Seconds INR (0.9-1.1) APTT (21.0-31.0) Seconds PTT Ratio Sample Site POC pH (7.35-7.45) POC pCO2 (35-46) mmHg POC pO2 (80-95) mmHg POC HCO3 (19-24) mariah/L POC Total CO2 (24-31) mmol/L POC Base Excess (-9-1.8) mariah/L POC ABG O2 Sat (90-95) % Anuj Test O2 Delivery Device POC O2 Rate Minute Ventilation POC FiO2 % Tidal Volume PEEP Sodium 140 (136-145) mmol/L Potassium 4.2 (3.5-5.1) mmol/L Chloride 103 (98-107) mmol/L Carbon Dioxide 30 (21-32) mmol/L Anion Gap 7.0 (3-11) BUN 61 H (7-18) mg/dl Creatinine 1.39 (0.6-1.4) mg/dl Est Cr Clr Drug Dosing 47.4 ml/min Est GFR ( Amer) 57.1 Est GFR (Non-Af Amer) 49.2 BUN/Creatinine Ratio 43.7 H (10-20) Glucose 204 H (70-99) mg/dl POC Glucose (70-99) mg/dl POC Glucose (other) (70-99) mg/dl Lactate 2.1 H* (0.4-2.0) mmol/L Calcium 8.2 L (8.5-10.1) mg/dl Total Bilirubin 1.4 H (0.2-1) mg/dl AST 14 L (15-37) U/L ALT 17 (12-78) U/L Alkaline Phosphatase 96 (45-117) U/L Total Protein 6.6 (6.4-8.2) gm/dl Albumin 2.4 L (3.4-5.0) gm/dl Globulin 4.2 H (2.5-4.0) gm/dl Albumin/Globulin Ratio 0.6 L (0.9-2) Procalcitonin 0.18 (0-0.5) ng/ml Diagnostic Findings Frequent ectopy on pvc monitor Coding Level of Care Code Critical Care ea addt'l 30 min Diagnoses Shock R57.9 Constipation K59.00 Constipation type: unspecified constipation type Acute on chronic systolic (congestive) heart failure I50.23 CKD (chronic kidney disease) N18.9 Chronic kidney disease stage: unspecified stage Aortic stenosis I35.0 Respiratory failure J96.21 Chronicity: acute on chronic Respiratory failure complication: hypoxia MARISA (acute kidney injury) N17.9 History of aortic valve replacement Z95.2 Ischemic cardiomyopathy I25.5 Diabetes mellitus, type II E11.9 Stroke I63.9 Coronary artery disease I25.10 Atrial fibrillation I48.21 Atrial fibrillation type: permanent Hypotension I95.9 AMS (altered mental status) R41.82 Time Spent (min) 120 Comment I have personally spent 120 minutes of critical care time in the direct management of this patient. This is a life/limb threatening event. This includes time spent evaluating patient, direct bedside care, chart review, placing orders, interpretation of diagnostic studies, discussion with consultants, patient, and/or family members regarding treatment decisions, as well as other required patient management activities. This time is exclusive of all separately billable procedures, and teaching time and separate from and in addition to any other critical care service time. (1) Constipation Constipation type: unspecified constipation type Qualified Code(s): K59.00 - Constipation, unspecified (2) CKD (chronic kidney disease) Chronic kidney disease stage: unspecified stage Qualified Code(s): N18.9 - Chronic kidney disease, unspecified (3) Respiratory failure Chronicity: acute on chronic Respiratory failure complication: hypoxia Qualified Code(s): J96.21 - Acute and chronic respiratory failure with hypoxia (4) Atrial fibrillation Atrial fibrillation type: permanent Qualified Code(s): I48.21 - Permanent atrial fibrillation
--- NOTE | 2020-01-25 09:33 | Hospitalist Progress Note ---
Date of Service January 25, 2020 Assessment & Plan (1) Acute on chronic systolic (congestive) heart failure: History of chronic systolic heart failure, ischemic cardiomyopathy Pt is 75 y/o M with PMH chronic systolic CHF, ischemic cardiomyopathy EF: 30%, CAD s/p CABG in 2002, A-fib on Coumadin, DM II, H/O CVA, HTN, Aortic stenosis s/p TAVR with bioprosthetic valve in 2017, chronic respiratory failure on 2L O2 presented to ER with c/o SOB with exertion x 2 weeks. BLE edema x2 days. Echo on 11/26/2019: EF: 30-35%, mild concentric LVH, apical septum and apical inferior wall akinetic, posterior wall at base and mid level is akinetic, all other segments hypokinetic, normal gradient prosthetic aortic valve, mild mitral regurgitation, mild tricuspid regurgitation In ER afebrile, P: 77-101, R: 20, BP: 108/66, 96% on RA up to 100% on 3L oxygen via NC, No leukocytosis, H/H: 9.6/33, BUN: 59, Cr: 1.56 (1.3-1.4 in 11/2019), BNP: 10,739 CXR: congestive changes, small bilateral effusions -In ER given Lasix 40 mg IV, added albumin -Monitor I's and O's, daily weights, low-sodium diet -Lasix 40 mg IV daily + IV albumin -Continue spironolactone, hold torsemide -Cardiology consulted, appreciate their input -continued w/40 mg IV lasix AM 01/22 Shock -Patient found unresponsive overnight (01/22-01/23), hypotensive, required intubation and pressor support -Likely cardiogenic versus poss. septic (patient was treated for acute CHF exacerbation, prior to this event low suspicion for infection) -Echocardiogram was obtained (01/23) -showed EF of 25 to 30%, LV systolic function severely reduced. Underlying rhythm A. fib with frequent PVCs. [place] involving apical septum and apical inferior wall is akinetic. Posterior wall at the base and mid level is akinetic. The remaining LV myocardial wall segments are hypokinetic. Gradient is normal for prosthetic aortic valve. Systolic pulmonary artery pressure is 51. -Cardiology reviewed echo, and compared EF with previous from October 2019, did not feel as there was significant difference -CT chest significant for large right pleural effusion. -Possibly consider thoracentesis, per discretion of pulmonary medicine -Diuretics on hold due to hypotension Hypoxic respiratory failure, acute on chronic patient wears 2-3 L NC at baseline -Likely secondary to CHF exacerbation/pleural effusion/poss.pna / poss. aspiration -Chest imaging revealed significant right pleural effusion, small left pleural effusion, bilateral lower lobe consolidative change and possible aspiration -Pt was intubated as he was failing to protect his airway -Management per ICU/pulmonary medicine -Empiric antibiotics also started Per discussion with patient's , she found advanced directives where patient did not wish for mechanical ventilation. Patient was extubated this morning, January 24. Patient's present at the bedside. Palliative medicine consulted. (2) Elevated troponin: Troponin: 0.05. EKG afib, RBBB, inferior infarct pattern also seen on EKG 12/10/2019 INR: 4.1 No CP. Suspect demand ischemia -monitor on tele -troponin peaked at 0.059 -Hold on echo as had echo in 10/2019 -Continue aspirin, metoprolol, statin -cardiology following (3) Coronary artery disease: S/P CABG in 2002 -Continue aspirin, metoprolol, statin (4) Atrial fibrillation: Chronic A. fib on Coumadin INR: 4.1 on admission, then 4.4 -now down to 2.2 -Continue metoprolol -re-started coumadin 01/22 -monitor INR (5) Chronic respiratory failure with hypoxia: On 2-3L oxygen chronic -continue supplemental oxygen (6) Anemia: H/H: 9.6/33. Recent hospital admission for GI bleed. Hgb stable since discharge. -Monitor H&H -Continue chronic PPI (7) Diabetes mellitus, type II: A1c: 7.4 on 11/26/2019 -Novolog sliding scale (8) Aortic stenosis: 2017 H/O TAVR complicated by rupture of the prosthetic valve, aortic valve replacement with bioprosthesis, mitral valve repair (9) CKD (chronic kidney disease): MARISA on CKD stage III Baseline about 1.3-1.4 Cr 1.56 on admission, now down to 1.33 Cont. to monitor -improved w/ lasix and albumin (10) Constipation: -Started patient on oral softeners and suppositories -now pt in ICU, CT abdomen obtained due to episode of unresponsiveness, shock -On imaging stool burden noted, rectal stool impaction, attempted enema (11) Anxiety: -Continue buspirone DVT Prophylaxis -On Coumadin, Current INR therapeutic CODE status-DNR/ DNI Full Code as per discussion with pt on admission, CODE STATUS then discussed overnight 01/23, when patient found unresponsive, and in shock. Per patient's no CPR or defibrillation in case of cardiac arrest, patient's agreeable to cardiac medications, pressors, and mechanical ventilation. Later on 01/23, patient's found advance directives previously prepared by her , where he stated he would not wish for mechanical ventilation. She brought the paperwork to the hospital today 01/24, and patient was extubated. Palliative medicine also consulted. Follows with Dr Puri for routine care Admission and Anticipated Discharge Date Admission Date: January 21, 2020 Subjective Patient currently remains in ICU. Discussed with patient's last evening, to update her on patient's clinical status. Patient's mentions that she found advanced directives that her had prepared previously. She says that it states that he would not want to be on mechanical ventilation, and she can bring the paperwork to the hospital . She said that her was intubated previously, in other medical centers, for example in [place]. She says that he had issues with being on ventilator. I informed her that extubation will need to be discussed with pulmonary/ICU staff. This morning, patient is extubated, on oxygen mask, patient's is at the bedside. Patient appears comfortable, very minimal work of breathing. He is not responsive to verbal or tactile stimuli. Palliative medicine was also consulted by ICU staff. Patient's is teary at times but says that this is what her would wish and she is comfortable with this decision. Review of Systems Review of Systems: Unobtainable due to cognitive status Physical Exam Physical Exam: General: Elderly male, laying in bed on oxygen mask, unresponsive to verbal or tactile stimuli, comfortable, minimal work of breathing Head: normocephalic, atraumatic ENT: normal inspection external ears, nose Lungs: Minimal work of breathing, coarse breath sounds bilaterally CV: Tachycardic, irregularly irregular, 1+ pitting pretibial edema Abdomen: normal BS, soft, obese Ext: 1+ pitting pretibial edema Neuro: unresponsive to verbal or tactile stimuli Skin: warm, dry Results & Data Results & Data ([facility]) Vital Signs (Past 12 Hours) Vital Signs Temp Pulse Resp BP Pulse Ox 01/25/20 09:20 96 H 18 98 01/25/20 09:06 94 H 145/116 H 98 01/25/20 09:00 93 H 96 01/25/20 08:30 103 H 97 01/25/20 08:07 36.6 C 94 H 99 01/25/20 08:06 89 156/92 H 99 01/25/20 08:00 36.6 C 95 H 99 01/25/20 07:06 92 H 158/131 H 95 01/25/20 07:00 99 H 99 01/25/20 06:55 97 H 13 97 01/25/20 06:07 97 H 94 01/25/20 06:00 93 H 14 166/94 H 100 01/25/20 05:15 91 H 16 98 01/25/20 05:04 96 H 16 113/87 100 01/25/20 04:30 97 H 16 134/81 100 01/25/20 04:00 36.6 C 93 H 16 136/75 100 01/25/20 03:22 92 H 16 131/67 98 01/25/20 02:40 101 H 16 100/53 L 100 01/25/20 02:15 93 H 16 100 01/25/20 02:04 90 16 107/94 94 01/25/20 01:49 102 H 16 111/92 96 01/25/20 01:24 96 H 16 137/92 96 01/25/20 01:00 91 H 17 93 01/25/20 00:46 94 H 16 134/114 H 100 01/25/20 00:30 102 H 16 100 01/25/20 00:00 99 H 16 146/87 H 100 01/24/20 23:37 102 H 16 144/88 H 100 01/24/20 23:00 104 H 16 139/99 100 01/24/20 22:30 101 H 16 100 01/24/20 22:00 97 H 100 01/24/20 21:46 104 H 105/63 100 Laboratory Results 01/25/20 01/25/20 01/25/20 Range/Units 05:57 05:29 03:59 WBC (4.8-10.8) K/uL RBC (4.7-6.1) M/uL Hgb (14.0-18.0) g/dL Hct (42-52) % MCV (80-100) fL MCH (25-34) pg MCHC (32-36) g/dL RDW Std Deviation (36.4-46.3) fL RDW Coeff of Abi (11.5-14.5) % Plt Count (130-400) K/uL MPV (7.4-10.4) fL Immature Gran % (Auto) % Neut % (Auto) % Lymph % (Auto) % Hill % (Auto) % Eos % (Auto) % Baso % (Auto) % Immature Gran # (Auto) (0.00-0.02) K/uL Neut # (Auto) (1.4-6.5) K/uL Lymph # (Auto) (1.2-3.4) K/uL Hill # (Auto) (0.11-0.59) K/uL Eos # (Auto) (0-0.5) K/uL Baso # (Auto) (0-0.2) K/uL Hypochromasia Spherocytes Ovalocytes Echinocytes PT (9.0-12.0) Seconds INR (0.9-1.1) APTT (21.0-31.0) Seconds PTT Ratio Sample Site L Radial POC pH 7.55 H* (7.35-7.45) POC pCO2 31 L (35-46) mmHg POC pO2 61 L (80-95) mmHg POC HCO3 27 H (19-24) mariah/L POC Total CO2 28 (24-31) mmol/L POC Base Excess 5.0 H (-9-1.8) mariah/L POC ABG O2 Sat 94.0 (90-95) % Anuj Test Pass O2 Delivery Device Ventilator POC O2 Rate 16 Minute Ventilation 6.7 POC FiO2 30 % Tidal Volume 450 PEEP 5 Sodium (136-145) mmol/L Potassium (3.5-5.1) mmol/L Chloride (98-107) mmol/L Carbon Dioxide (21-32) mmol/L Anion Gap (3-11) BUN (7-18) mg/dl Creatinine (0.6-1.4) mg/dl Est Cr Clr Drug Dosing ml/min Est GFR ( Amer) Est GFR (Non-Af Amer) BUN/Creatinine Ratio (10-20) Glucose (70-99) mg/dl POC Glucose 195 H (70-99) mg/dl POC Glucose (other) (70-99) mg/dl Lactate (0.4-2.0) mmol/L Calcium (8.5-10.1) mg/dl Total Bilirubin (0.2-1) mg/dl AST (15-37) U/L ALT (12-78) U/L Alkaline Phosphatase (45-117) U/L Total Protein (6.4-8.2) gm/dl Albumin (3.4-5.0) gm/dl Globulin (2.5-4.0) gm/dl Albumin/Globulin Ratio (0.9-2) Procalcitonin 0.44 (0-0.5) ng/ml 01/25/20 01/25/20 01/25/20 Range/Units 03:59 03:59 03:59 WBC 12.27 H (4.8-10.8) K/uL RBC 3.88 L (4.7-6.1) M/uL Hgb 8.5 L (14.0-18.0) g/dL Hct 28.6 L (42-52) % MCV 73.7 L (80-100) fL MCH 21.9 L (25-34) pg MCHC 29.7 L (32-36) g/dL RDW Std Deviation 52.9 H (36.4-46.3) fL RDW Coeff of Abi 19.7 H (11.5-14.5) % Plt Count 224 (130-400) K/uL MPV 9.7 (7.4-10.4) fL Immature Gran % (Auto) 0.2 % Neut % (Auto) 89.4 % Lymph % (Auto) 3.5 % Hill % (Auto) 5.6 % Eos % (Auto) 1.1 % Baso % (Auto) 0.2 % Immature Gran # (Auto) 0.03 H (0.00-0.02) K/uL Neut # (Auto) 10.96 H (1.4-6.5) K/uL Lymph # (Auto) 0.43 L (1.2-3.4) K/uL Hill # (Auto) 0.69 H (0.11-0.59) K/uL Eos # (Auto) 0.14 (0-0.5) K/uL Baso # (Auto) 0.02 (0-0.2) K/uL Hypochromasia Present Spherocytes 2+ Ovalocytes 1+ Echinocytes 1+ PT 26.3 H (9.0-12.0) Seconds INR 2.6 H (0.9-1.1) APTT 35.4 H (21.0-31.0) Seconds PTT Ratio 1.3 Sample Site POC pH (7.35-7.45) POC pCO2 (35-46) mmHg POC pO2 (80-95) mmHg POC HCO3 (19-24) mariah/L POC Total CO2 (24-31) mmol/L POC Base Excess (-9-1.8) mariah/L POC ABG O2 Sat (90-95) % Anuj Test O2 Delivery Device POC O2 Rate Minute Ventilation POC FiO2 % Tidal Volume PEEP Sodium 141 (136-145) mmol/L Potassium 4.1 (3.5-5.1) mmol/L Chloride 105 (98-107) mmol/L Carbon Dioxide 29 (21-32) mmol/L Anion Gap 7.0 (3-11) BUN 55 H (7-18) mg/dl Creatinine 1.47 H (0.6-1.4) mg/dl Est Cr Clr Drug Dosing 44.8 ml/min Est GFR ( Amer) 53.3 Est GFR (Non-Af Amer) 46.0 BUN/Creatinine Ratio 37.6 H (10-20) Glucose 168 H (70-99) mg/dl POC Glucose (70-99) mg/dl POC Glucose (other) (70-99) mg/dl Lactate (0.4-2.0) mmol/L Calcium 7.8 L (8.5-10.1) mg/dl Total Bilirubin 1.5 H (0.2-1) mg/dl AST 12 L (15-37) U/L ALT 14 (12-78) U/L Alkaline Phosphatase 80 (45-117) U/L Total Protein 5.5 L (6.4-8.2) gm/dl Albumin 2.0 L (3.4-5.0) gm/dl Globulin 3.5 (2.5-4.0) gm/dl Albumin/Globulin Ratio 0.6 L (0.9-2) Procalcitonin (0-0.5) ng/ml 01/25/20 01/24/20 01/24/20 Range/Units 00:16 17:36 11:34 WBC (4.8-10.8) K/uL RBC (4.7-6.1) M/uL Hgb (14.0-18.0) g/dL Hct (42-52) % MCV (80-100) fL MCH (25-34) pg MCHC (32-36) g/dL RDW Std Deviation (36.4-46.3) fL RDW Coeff of Abi (11.5-14.5) % Plt Count (130-400) K/uL MPV (7.4-10.4) fL Immature Gran % (Auto) % Neut % (Auto) % Lymph % (Auto) % Hill % (Auto) % Eos % (Auto) % Baso % (Auto) % Immature Gran # (Auto) (0.00-0.02) K/uL Neut # (Auto) (1.4-6.5) K/uL Lymph # (Auto) (1.2-3.4) K/uL Hill # (Auto) (0.11-0.59) K/uL Eos # (Auto) (0-0.5) K/uL Baso # (Auto) (0-0.2) K/uL Hypochromasia Spherocytes Ovalocytes Echinocytes PT (9.0-12.0) Seconds INR (0.9-1.1) APTT (21.0-31.0) Seconds PTT Ratio Sample Site POC pH (7.35-7.45) POC pCO2 (35-46) mmHg POC pO2 (80-95) mmHg POC HCO3 (19-24) mariah/L POC Total CO2 (24-31) mmol/L POC Base Excess (-9-1.8) mariah/L POC ABG O2 Sat (90-95) % Anuj Test O2 Delivery Device POC O2 Rate Minute Ventilation POC FiO2 % Tidal Volume PEEP Sodium (136-145) mmol/L Potassium (3.5-5.1) mmol/L Chloride (98-107) mmol/L Carbon Dioxide (21-32) mmol/L Anion Gap (3-11) BUN (7-18) mg/dl Creatinine (0.6-1.4) mg/dl Est Cr Clr Drug Dosing ml/min Est GFR ( Amer) Est GFR (Non-Af Amer) BUN/Creatinine Ratio (10-20) Glucose (70-99) mg/dl POC Glucose (70-99) mg/dl POC Glucose (other) 164 H 162 H 195 H (70-99) mg/dl Lactate (0.4-2.0) mmol/L Calcium (8.5-10.1) mg/dl Total Bilirubin (0.2-1) mg/dl AST (15-37) U/L ALT (12-78) U/L Alkaline Phosphatase (45-117) U/L Total Protein (6.4-8.2) gm/dl Albumin (3.4-5.0) gm/dl Globulin (2.5-4.0) gm/dl Albumin/Globulin Ratio (0.9-2) Procalcitonin (0-0.5) ng/ml 01/24/20 01/24/20 01/24/20 Range/Units 10:10 10:10 10:10 WBC (4.8-10.8) K/uL RBC (4.7-6.1) M/uL Hgb (14.0-18.0) g/dL Hct (42-52) % MCV (80-100) fL MCH (25-34) pg MCHC (32-36) g/dL RDW Std Deviation (36.4-46.3) fL RDW Coeff of Abi (11.5-14.5) % Plt Count (130-400) K/uL MPV (7.4-10.4) fL Immature Gran % (Auto) % Neut % (Auto) % Lymph % (Auto) % Hill % (Auto) % Eos % (Auto) % Baso % (Auto) % Immature Gran # (Auto) (0.00-0.02) K/uL Neut # (Auto) (1.4-6.5) K/uL Lymph # (Auto) (1.2-3.4) K/uL Hill # (Auto) (0.11-0.59) K/uL Eos # (Auto) (0-0.5) K/uL Baso # (Auto) (0-0.2) K/uL Hypochromasia Spherocytes Ovalocytes Echinocytes PT (9.0-12.0) Seconds INR (0.9-1.1) APTT (21.0-31.0) Seconds PTT Ratio Sample Site POC pH (7.35-7.45) POC pCO2 (35-46) mmHg POC pO2 (80-95) mmHg POC HCO3 (19-24) mariah/L POC Total CO2 (24-31) mmol/L POC Base Excess (-9-1.8) mariah/L POC ABG O2 Sat (90-95) % Anuj Test O2 Delivery Device POC O2 Rate Minute Ventilation POC FiO2 % Tidal Volume PEEP Sodium 140 (136-145) mmol/L Potassium 4.2 (3.5-5.1) mmol/L Chloride 103 (98-107) mmol/L Carbon Dioxide 30 (21-32) mmol/L Anion Gap 7.0 (3-11) BUN 61 H (7-18) mg/dl Creatinine 1.39 (0.6-1.4) mg/dl Est Cr Clr Drug Dosing 47.4 ml/min Est GFR ( Amer) 57.1 Est GFR (Non-Af Amer) 49.2 BUN/Creatinine Ratio 43.7 H (10-20) Glucose 204 H (70-99) mg/dl POC Glucose (70-99) mg/dl POC Glucose (other) (70-99) mg/dl Lactate 2.1 H* (0.4-2.0) mmol/L Calcium 8.2 L (8.5-10.1) mg/dl Total Bilirubin 1.4 H (0.2-1) mg/dl AST 14 L (15-37) U/L ALT 17 (12-78) U/L Alkaline Phosphatase 96 (45-117) U/L Total Protein 6.6 (6.4-8.2) gm/dl Albumin 2.4 L (3.4-5.0) gm/dl Globulin 4.2 H (2.5-4.0) gm/dl Albumin/Globulin Ratio 0.6 L (0.9-2) Procalcitonin 0.18 (0-0.5) ng/ml Medications Administered Current Inpatient Medications Albuterol (Duoneb) 3 ml NEB Q6H PRN PRN Reason: Shortness Of Breath Or Wheezin Stop: 02/23/20 07:14 Aspirin (Aspirin Chew) 81 mg PO QAM [facility] Stop: 02/23/20 10:59 Last Admin: 01/25/20 07:50 Dose: 81 mg Documented by: Atorvastatin Calcium (Lipitor) 40 mg PO HS [facility] Stop: 02/20/20 20:59 Last Admin: 01/24/20 21:41 Dose: 40 mg Documented by: Bisacodyl (Dulcolax) 10 mg [facility] DAILY PRN PRN Reason: Constipation Stop: 02/21/20 18:24 Last Admin: 01/24/20 17:30 Dose: 10 mg Documented by: Dextrose (Dextrose 50%) 25 - 50 ml IV UD PRN; Protocol PRN Reason: Hypoglycemia Protocol Stop: 02/20/20 17:22 Docusate Sodium (Colace) [address] [facility] Stop: 02/23/20 10:59 Last Admin: 01/24/20 11:16 Dose: 50 mg Documented by: Famotidine (Pepcid) 20 mg PO BID [facility] Stop: 02/23/20 20:59 Last Admin: 01/25/20 07:46 Dose: 20 mg Documented by: Fentanyl Citrate (Fentanyl Bolus From Bag) 50 mcg IV Q60M PRN PRN Reason: Pain or Agitation Stop: 02/07/20 08:54 Glucagon (Glucagen) 1 mg SQ UD PRN; Protocol PRN Reason: Hypoglycemia Protocol Stop: 02/20/20 17:22 Glucose (Dex4 Glucose) 4 - 8 tabs PO UD PRN; Protocol PRN Reason: Hypoglycemia Protocol Stop: 02/20/20 17:22 Glucose (Glucose 40%) 15 - 30 gm PO UD PRN; Protocol PRN Reason: Hypoglycemia Protocol Stop: 02/20/20 17:22 Epinephrine HCl 4 mg/ Dextrose 254 mls @ 0 mls/hr IV .Q0M [facility]; Protocol Stop: 02/23/20 03:29 Last Titration: 01/24/20 04:00 Dose: 0 mcg/kg/min, 0 mls/hr Documented by: Norepinephrine Bitartrate 8 mg (/ Dextrose) 508 mls @ 0 mls/hr IV .Q0M [facility]; Protocol Stop: 02/23/20 03:59 Last Titration: 01/25/20 00:45 Dose: 0 mcg/kg/min, 0 mls/hr Documented by: Promethazine HCl 12.5 mg/ (Sodium Chloride) 50.5 mls @ 202 mls/hr IV Q6H PRN PRN Reason: Nausea And Vomiting Stop: 02/23/20 03:56 Acetaminophen (Ofirmev) 1,000 mg in 100 mls @ 400 mls/hr IV Q8H PRN PRN Reason: fever/pain Stop: 01/27/20 03:56 Propofol (Diprivan) 1,000 mg in 100 mls @ 10.512 mls/hr IV .Q9H31M [facility]; Protocol Stop: 01/27/20 04:29 Last Titration: 01/25/20 07:21 Dose: 20 mcg/kg/min, 10.5 mls/hr Documented by: Piperacillin Sod/Tazobactam (Sod 4.5 gm/ Dextrose) 120 mls @ 30 mls/hr IV Q8H [facility]; Protocol Stop: 01/26/20 09:59 Last Admin: 01/25/20 07:55 Dose: 30 mls/hr Documented by: Fentanyl Citrate (Fentanyl Drip) 1,250 mcg in 250 mls @ 5 mls/hr IV .Q24H [facility]; Protocol Stop: 02/07/20 08:59 Last Titration: 01/25/20 07:21 Dose: 25 mcg/hr, 5 mls/hr Documented by: Vancomycin HCl 1,000 mg/ (Sodium Chloride) 270 mls @ 125 mls/hr IV Q18H [facility]; Protocol Stop: 01/26/20 05:29 Last Infusion: 01/25/20 01:20 Dose: Infused Documented by: Insulin Aspart (Novolog Flexpen) 0 units SC Q6 [facility] Stop: 02/23/20 04:59 Last Admin: 01/25/20 06:01 Dose: 1 units Documented by: Miscellaneous (Carbohydrates For Hypoglycemia) 15 - 30 gm PO UD PRN PRN Reason: Hypoglycemia Protocol Stop: 02/20/20 17:22 Miscellaneous (Icu Protocol For Hyperglycemia) 1 ea N/A PRN PRN; Protocol PRN Reason: Hyperglycemia Protocol Stop: 01/26/20 04:21 Miscellaneous Information (Consult) 1 ea N/A UD PRN PRN Reason: Consult Stop: 02/23/20 04:59 Miscellaneous Information (Consult) 1 ea N/A UD PRN PRN Reason: Consult Stop: 02/23/20 04:59 Nitroglycerin (Nitrostat) 0.4 mg SL UD PRN PRN Reason: Chest Pain Stop: 02/20/20 16:57 Propofol (Diprivan Bolus From Bag) 20 mg IV Q5M PRN PRN Reason: Sedation Stop: 01/27/20 04:20 Sennosides (Senokot) 8.8 mg PO QAM [facility] Stop: 02/23/20 10:59 Last Admin: 01/24/20 11:17 Dose: 8.8 mg Documented by: (1) Atrial fibrillation Atrial fibrillation type: permanent Qualified Code(s): I48.21 - Permanent atrial fibrillation (2) Anemia Anemia type: unspecified type Qualified Code(s): D64.9 - Anemia, unspecified (3) CKD (chronic kidney disease) Chronic kidney disease stage: unspecified stage Qualified Code(s): N18.9 - Chronic kidney disease, unspecified (4) Constipation Constipation type: unspecified constipation type Qualified Code(s): K59.00 - Constipation, unspecified
[2020-01-25] MEDS: SENNA 8.8 MG/5 ML UDP PO SCH (10:27)
[2020-01-25] MEDS: DOCUSATE SODIUM SYRUP 100 MG/10 ML UDC PO SCH (10:56)
--- NOTE | 2020-01-25 10:57 | Cardiology Progress Note ---
Date of Service January 25, 2020 Assessment & Plan (1) Shock: (2) Respiratory failure: (3) Pleural effusion on right: (4) NSVT (nonsustained ventricular tachycardia): (5) Acute on chronic systolic (congestive) heart failure: (6) Atrial fibrillation: (7) CKD (chronic kidney disease): (8) Constipation: Patient transferred to ICU secondary to acute hypoxic respiratory failure, shock, and unresponsiveness. Repeat resting 2D transthoracic echocardiogram demonstrates normally functioning TAVR with severely reduced LV systolic function. Ejection fraction is not significantly changed when directly compared to prior echocardiogram performed in October. IV vasopressor therapy disconti nued. Blood pressure remains stable this morning. Telemetry demonstrates atrial fibrillation (rate 90-100) with frequent ventricular ectopy and occasional salvos of nonsustained ventricular tachyca rdia. INR is therapeutic (2.6) without signs/symptoms of active bleeding/blood loss. Hemoglobin trending downward to 8.5gm/dl with WBCs trending upward today. There is evidence of large right pleural effusion on CT. Consider thoracentesis per discretion of pulmonary medicine. Continue to monitor hemodynamics. Restart metoprolol 12.5 mg twice daily if blood pressure remains stable off vasopressor therapy. Ventilator management as per critical care. Family considering terminal extubation per previously documented patient wishes/living will. Continue empiric antibiotics. Cultures negative x24 hours. Recent history significant for staph aureus bacteremia 10/2019. Poor prognosis. updated regarding clinical status via telephone. Subjective Patient seen and examined at the bedside. Currently sedated with propofol on the ventilator. Vasopressors discontinued. Blood pressure improved this morning. Remains atrial fibrillation with heart rate averaging 90 to 100 bpm on telemetry. Frequent premature ventricular complexes and occasional 3-7 beat salvos of nonsustained ventricular tachycardia recorded. Case discussed with critical care medicine. reporting patient's living will stating he did not wish to be placed on ventilator. Terminal extubation being considered at this time. Review of Systems Review of Systems: Unobtainable due to endotracheal tube Physical Exam Constitutional: + ill appearing and + obese Respiratory: Auscultation: + diminished lung sounds (Right-sided); no crackles, no rales, no rhonchi (Coarse breath sounds bilaterally) and no wheezes Cardiovascular: Rate/Rhythm: + irregularly irregular Heart Sounds: normal S1 and normal S2; no murmur and no cardiac rub Vessels: no JVD and no carotid bruit Extremities: + edema (Trace bilateral pedal edema) Gastrointestinal (Abdomen): Inspection/Auscultation: abdomen normal to inspection and normal bowel sounds; abdomen not distended Percussion/Palpation: abdomen soft; abdomen nontender, no guarding and abdomen not rigid Skin: no rashes, warm and dry Results & Data Vital Signs (Past 12 Hours) Vital Signs Temp Pulse Resp BP Pulse Ox 01/25/20 10:07 102 H 163/119 H 97 01/25/20 10:00 102 H 97 01/25/20 09:30 92 H 98 01/25/20 09:20 96 H 18 98 01/25/20 09:07 98 H 95 01/25/20 09:06 94 H 145/116 H 98 01/25/20 09:00 93 H 96 01/25/20 08:30 103 H 97 01/25/20 08:07 36.6 C 94 H 99 01/25/20 08:06 89 156/92 H 99 01/25/20 08:00 36.6 C 95 H 99 01/25/20 07:06 92 H 158/131 H 95 01/25/20 07:00 99 H 99 01/25/20 06:55 97 H 13 97 01/25/20 06:07 97 H 94 01/25/20 06:00 93 H 14 166/94 H 100 01/25/20 05:15 91 H 16 98 01/25/20 05:04 96 H 16 113/87 100 01/25/20 04:30 97 H 16 134/81 100 01/25/20 04:00 36.6 C 93 H 16 136/75 100 01/25/20 03:22 92 H 16 131/67 98 01/25/20 02:40 101 H 16 100/53 L 100 01/25/20 02:15 93 H 16 100 01/25/20 02:04 90 16 107/94 94 01/25/20 01:49 102 H 16 111/92 96 01/25/20 01:24 96 H 16 137/92 96 01/25/20 01:00 91 H 17 93 01/25/20 00:46 94 H 16 134/114 H 100 01/25/20 00:30 102 H 16 100 01/25/20 00:00 99 H 16 146/87 H 100 01/24/20 23:37 102 H 16 144/88 H 100 01/24/20 23:00 104 H 16 139/99 100 (1) Respiratory failure Chronicity: acute on chronic Respiratory failure complication: hypoxia Qualified Code(s): J96.21 - Acute and chronic respiratory failure with hypoxia (2) Atrial fibrillation Atrial fibrillation type: permanent Qualified Code(s): I48.21 - Permanent atrial fibrillation (3) CKD (chronic kidney disease) Chronic kidney disease stage: unspecified stage Qualified Code(s): N18.9 - Chronic kidney disease, unspecified (4) Constipation Constipation type: unspecified constipation type Qualified Code(s): K59.00 - Constipation, unspecified
[2020-01-25] MEDS ORDERED: IMIPENEM/CILASTATIN CONSULT ACTIVE PRN (11:26)
[2020-01-25] MEDS ORDERED: MoRPHine SULFATE 2 MG/ML CARP ONE (11:38)
[2020-01-25] MEDS ORDERED: MoRPHine SULFATE 2 MG/ML CARP IV STA (11:38)
[2020-01-25] MEDS: IMIPENEM/CILASTATIN SODIUM 500 MG in DEXTROSE 5% 100 ML IV SCH ×2 (12:07→19:32)
--- NOTE | 2020-01-25 12:07 | Palliative Care Consultation ---
Date of Consultation January 25, 2020 Assessment & Plan (1) Goals of care, counseling/discussion: -75 year old male patient with PMH chronic systolic CHF, ischemic cardiomyopathy with EF 30%, CAD s/p CABG in 2002, A-fib on Coumadin, DM II, H/O CVA, HTN, Aortic stenosis s/p TAVR with bioprosthetic valve in 2017, chronic respiratory failure on 2L O2, and CKD stage III, presented to the ED with c/o ZARATE for two weeks and BLE edema for two days. In ED, BUN creatine mildly elevated at 59/1.5, CXR showed congestive changes, BNP >10k. Patient was given 40mg IV lasix and was diuresing, cardiology consulted. Last echo in October 2019 showed EF 30-35%, hypokinesis/akinesis of certain areas, mild MR, mild TR. Patient was admitted for further diuresis and seemed to be doing well. However, on the night of 01/12, a code blue was called as patient was unresponsive, agonally breathing, and hypotensive. Patient was urgently intubated, started on pressors, and sent to the ICU. CXR showed worsening of pleural effusion, EKG showed no changes. The night-time physician spoke with patient's who stated patient should be DNR in event of cardiac arrest, but okay to continue with current care. Uncertain etiology of shock-- cardiogenic vs. septic. Thoracic Medicine Physician noted that echocardiogram shows no real difference from two months ago. Lactic acid and WBCs only mildly elevated at 2.1 and 12k respectively. Patient's called into the ICU this morning and stated that she doesn't believe patient wou ld have wanted to be intubated or to continue with such aggressive measures. The aerial gunner spoke with the at length and decision was made to extubate patient, continue current treatment with no escalation in care. Palliative care is consulted to follow along, provide support, and discuss goals of care. -Patient seen and evaluated by palliative MD this afternoon and spoke with patient's at bedside. -I spoke with aerial gunner this morning who has spoken with patient's . Again, plan is to terminally extubate, but continue with current treatment and see how patient does. If he declines, likely will transition to full comfort measures only. If he improves, may continue with care and continue to reevaluate each day. -At baseline, patient lives at home with his . He is independent with all of his care and ADLs, drives, does wear oxygen. His plan was to return home with home health. However, with major change in condition, this will likely change. Discharge planning to be determined based on clinical course in hospital. -We will continue to follow during hospitalization. Prognosis is guarded. (2) Shock: (3) Acute on chronic systolic (congestive) heart failure: (4) Respiratory failure: Chronicity: acute on chronic Respiratory failure complication: hypoxia Qualified Code(s): J96.21 - Acute and chronic respiratory failure with hypoxia Supervising Physician Co-Signing Physician Notes Chart reviewed, patient seen and examined. Collaborated with KERRIE Villarreal as well as ICU attending Dr. June Met with in ICU briefly. Patient's slightly tearful, patient was extubated as per his prior stated wishes, patient's at bedside. PE: Patient recently extubated-on O2 via oxime mask. Patient did not respond to voice or touch HEENT: Unable to evaluate due to patient's being unresponsive Respirations: Mild increased work of breathing-appears comfortable on oxygen mask CV: Tachycardic Abdomen: Not distended Neuro: Unresponsive to voice or touch Agree with above note, assessment and plan as per KERRIE Villarreal-will continue to follow and provide support to patient's . History of Present Illness Attending Physician: Omega Wiley MD History of Present Illness This 75 year old male patient with PMH chronic systolic CHF, ischemic cardiomyopathy with EF 30%, CAD s/p CABG in 2002, A-fib on Coumadin, DM II, H/O CVA, HTN, Aortic stenosis s/p TAVR with bioprosthetic valve in 2016, chronic respiratory failure on 2L O2, and CKD stage III, presented to the ED with c/o ZARATE for two weeks and BLE edema for two days. In ED, BUN creatine mildly elevated at 59/1.5, CXR showed congestive changes, BNP >10k. Patient was given 40mg IV lasix and was diuresing, cardiology consulted. Last echo in October 2019 showed EF 30-35%, hypokinesis/akinesis of certain areas, mild MR, mild TR. Patient was admitted for further diuresis and seemed to be doing well. However, on the night of 01/12, a code blue was called as patient was unresponsive, agonally breathing, and hypotensive. Patient was urgently intubated, started on pressors, and sent to the ICU. CXR showed worsening of pleural effusion, EKG showed no changes. The night-time physician spoke with patient's who stated patient should be DNR in event of cardiac arrest, but okay to continue with current care. Uncertain etiology of shock-- cardiogenic vs. septic. Thoracic Medicine Physician noted that echocardiogram shows no real difference from two months ago. Lactic acid and WBCs only mildly elevated at 2.1 and 12k respectively. Patient's called into the ICU this morning and stated that she doesn't believe patient would have wanted to be intubated or to continue with such aggressive measures. The aerial gunner spoke with the at length and decision was made to extubate patient, continue current treatment with no escalation in care. Palliative care is consulted to follow along, provide support, and discuss goals of care. Thank you kindly for this consult. Palliative care team will follow as needed. Allergies Allergy/AdvReac Type Severity Reaction Status Date / Time lisinopril AdvReac Mild COUGH Verified 12/10/19 12:56 Home Medications Home Medications Medication Instructions Recorded Confirmed Type atorvastatin [Lipitor] 40 mg PO HS 04/05/19 01/21/20 History nitroglycerin [Nitrostat] 0.4 mg SUBLINGUAL UD PRN 04/05/19 01/21/20 History tamsulosin [Flomax] 0.4 mg PO QPM 04/05/19 01/21/20 History zolpidem [Ambien] 5 mg PO HS 04/05/19 01/21/20 History gabapentin [Neurontin] 100 mg PO TID 05/29/19 01/21/20 History metoprolol succinate [Toprol XL] 25 mg PO QAM 05/29/19 01/21/20 History buspirone 10 mg PO TID 11/25/19 01/21/20 History Humulin R Regular U-100 Insuln 0 sliding scale dose SUBCUT ACHS 12/08/19 01/21/20 History aspirin 81 mg PO QAM 12/08/19 01/21/20 History spironolactone [Aldactone] 25 mg PO BID 12/08/19 01/21/20 History torsemide 20 mg PO QDD 12/08/19 01/21/20 History torsemide 40 mg PO QAM 12/08/19 01/21/20 History acetaminophen [Tylenol] 325 mg PO Q4H PRN 12/10/19 01/21/20 History pantoprazole [Protonix] 40 mg PO BID 30 Days #60 tab 12/13/19 01/21/20 Rx warfarin [Coumadin] 0 mg PO UD 01/21/20 01/21/20 History Patient History Medical History Anxiety Aortic stenosis s/p TAVR with MV replacement 12/2016. Atrial fibrillation ON WARFARIN - FOLLOWS W/ DR. KOWALSKI Cardiac murmur Severe mitral annular calcification per 03/2019 echo. Limited echo, valves not well visualized. H/O MV repair and AVR. CHF (congestive heart failure) Cholecystitis, chronic Chronic respiratory failure with hypoxia Chronic systolic (congestive) heart failure Coronary artery disease s/p CABG 2002 Degenerative disc disease Diabetes mellitus, type II IDDM Diabetic neuropathy Diverticular disease Dyslipidemia GERD (gastroesophageal reflux disease) History of recent pneumonia HOSPITALIZED 03/2019 [facility] History of renal calculi Hypertension Ischemic cardiomyopathy EF 25-30%, pt refused ICD. On anticoagulant therapy SOB (shortness of breath) on exertion Spinal stenosis Stroke 2 YEARS AGO - WEAKNESS LEFT SIDE Transient ischemic attack (TIA) 2016 Surgical History Difficult airway Glidescope #4 atraumatic attempt x 1, 04/05/19 History of aortic valve replacement History of TAVR complicated by prosthetic fracture and then underwent open surgical aortic valve replacement, mitral valve repair in 2016 History of cardiac cath 2 YEARS AGO - [facility] - NO STENTS/ANGIOPLASTY --> VALVE REPLACEMENT History of cardiac radiofrequency ablation For A flutter, 2005. History of cardioversion History of cataract surgery History of chest tube placement During admission 04/05 - 04/28 for empyema History of ERCP 04/09/19. Glidescope #4. History of mitral valve repair 01/22/2017 History of thoracentesis 04/10/19 Status post coronary artery bypass grafting 15 YEARS AGO - 3 [facility] Family History Father Cirrhosis Social History Preferred Language: Senegalese Communication Ability: Effective Cotton Broker Required: No Beliefs That Will Affect Care: None marital status: Current Living Situation: Spouse Other Information That Helps Us Care for You: No Feels Safe at Home: Yes Safety Concerns: Feels Safe At This Time Smoking Status: Never smoker Tobacco Type: smokeless tobacco ; Do You Dip or Chew Tobacco: No ; Second Hand Exposure: No ; Tobacco Cessation Education Requested by Patient: No Hx Alcohol Use: No Hx Substance Use: No Results & Data Vital Signs (Past 12 Hours) Vital Signs Temp Pulse Resp BP Pulse Ox 01/25/20 10:07 102 H 163/119 H 97 01/25/20 10:00 102 H 97 01/25/20 09:30 92 H 98 01/25/20 09:20 96 H 18 98 01/25/20 09:07 98 H 95 01/25/20 09:06 94 H 145/116 H 98 01/25/20 09:00 93 H 96 01/25/20 08:30 103 H 97 01/25/20 08:07 36.6 C 94 H 99 01/25/20 08:06 89 156/92 H 99 01/25/20 08:00 36.6 C 95 H 99 01/25/20 07:06 92 H 158/131 H 95 01/25/20 07:00 99 H 99 01/25/20 06:55 97 H 13 97 01/25/20 06:07 97 H 94 01/25/20 06:00 93 H 14 166/94 H 100 01/25/20 05:15 91 H 16 98 01/25/20 05:04 96 H 16 113/87 100 01/25/20 04:30 97 H 16 134/81 100 01/25/20 04:00 36.6 C 93 H 16 136/75 100 01/25/20 03:22 92 H 16 131/67 98 01/25/20 02:40 101 H 16 100/53 L 100 01/25/20 02:15 93 H 16 100 01/25/20 02:04 90 16 107/94 94 01/25/20 01:49 102 H 16 111/92 96 01/25/20 01:24 96 H 16 137/92 96 01/25/20 01:00 91 H 17 93 01/25/20 00:46 94 H 16 134/114 H 100 01/25/20 00:30 102 H 16 100 Coding Level of Care Code 09818 Inpt Consult Level 3 Diagnoses Goals of care, counseling/discussion Z71.89 Shock R57.9 Acute on chronic systolic (congestive) heart failure I50.23 Respiratory failure J96.21 Chronicity: acute on chronic Respiratory failure complication: hypoxia Time Spent (min) 80 Time Spent Midlevel A total of 50 minutes spent by this INFORMATICS PHYSICIAN in reviewing chart, speaking with aerial gunner physician as well as palliative MD to discuss patient condition, goals and plan of care. Attending Spent 30 minutes in addition to the 50 minutes spent by KERRIE Villarreal- for total of 80 minutes with greater than 50% of the time in the unit and at bedside assessing patient's current status, providing support to patient's and collaborating with ICU staff
[2020-01-25] MEDS: fentaNYL DRIP 1,250 MCG/250 ML BAG IV SCH (12:17)
[2020-01-25] MEDS: NOREPINEPHRINE (Adult) 8 MG in DEXTROSE 5% 500 ML IV SCH (15:12)
[2020-01-25] MEDS ORDERED: MoRPHine SULFATE 2 MG/ML CARP IV PRN (20:42)
[2020-01-25] MEDS: ATORVASTATIN 40 MG TAB PO SCH (20:50)
[2020-01-25] MEDS ORDERED: ATROPINE SULFATE 1% OP SOLN 2 ML BTL SL PRN (22:04)
[2020-01-25] MEDS ORDERED: LORazepam 0.5 MG TAB PO PRN (22:04)
[2020-01-25] MEDS ORDERED: ONDANSETRON 4 MG OD TAB SL PRN (22:04)
[2020-01-25] MEDS ORDERED: ONDANSETRON INJ 2 MG/ML 2 ML VIAL IV PRN (22:04)
[2020-01-25] MEDS ORDERED: STAT IV Infusion **Titration per Protocol STA (22:04)
[2020-01-25] MEDS ORDERED: LORazepam 0.5 MG/1 ML VIAL IV PRN (22:04)
[2020-01-25] MEDS ORDERED: MoRPHine SULF/NSS 250 MG/250 ML BTL IV SCH (22:15)
--- NOTE | 2020-01-25 22:16 | Communication Note ---
Date of Service: January 25, 2020 Update 2200: Patient's work of breathing continues to increase and he continues to become more hypoxic. I spoke with the patient and he confirmed that he did not want to be reintubated. I spoke with the patient regarding transition to comfort care and he expressed that at this point that is how he wishes to proceed. At this point we will transition to comfort care, his and daughter are contacted and in agreements and are coming to the bedside to be with the patient. I have personally spent 20 minutes of critical care time in the direct man agement of this patient. This is a life/limb threatening event. This includes time spent evaluating patient, direct bedside care, chart review, placing orders, interpretation of diagnostic studies, discussion with consultants, patient, and family members, as well as other required patient management activities. This time is exclusive of all separately billable procedures, and teaching time and separate from and in addition to any other critical care service time. Thank you for allowing us to participate in the care of this patient. Please refer to my attending physician's documentation for any further recommendations. Coding Level of Care Code Critical Care reji deckert'l 30 min
[2020-01-25] MEDS ORDERED: MoRPHine BOLUS FROM BAG IV ONE (22:29)
--- NOTE | 2020-01-26 01:14 | Death Pronouncement Note ---
Date of Service January 26, 2020 Pronouncement Note Admission Date Admission Date: January 21, 2020 Contributing Factors (1) Acute on chronic systolic (congestive) heart failure: (2) Elevated troponin: (3) Coronary artery disease: (4) Atrial fibrillation: (5) Chronic respiratory failure with hypoxia: (6) Anemia: (7) Diabetes mellitus, type II: (8) Aortic stenosis: (9) CKD (chronic kidney disease): (10) Constipation: (11) Anxiety: Hospital Course Hospital Course: PRONOUNCEMENT NOTE - Date: 01/26/2020 Time: 102 I was contacted by nursing staff regarding the patients declining status and concerns for imminent demise. In short, patient was admitted to the hospital for CHF exacerbation. He was transferred to the ICU following code purple which he was in respiratory distress and required intubation. He was terminally extubated earlier today with no escalation of care. Patient began to decompensate overnight and per discussion with patient he decided to become comfort care. and daughter were notified and came to bedside, all in agreement with decision of comfort care. Patient continued to decline [place] 01001/26/2020. Assessment: I presented to the patients room for evaluation. Upon assessment, the patient was found to be in a terminal state. Pupils were fixed and dilated without response. No palpable pulses appreciated. No spontaneous breaths noted. Heart sounds were absent. No response to painful stimuli. Time of : 102 as pronounced by myself. Family present at bedside. Appropriate response to grief appreciated. Condolences provided. Questions were addressed and emotional support was provided. Patients primary service was contacted and made aware of patient demise. Pronouncement section of the Certificate was filled out and signed by myself. Cause of : Primary -acute on chronic hypoxic respiratory failure Secondary -CHF Please feel free to contact me with any questions regarding the above-mentioned course. Additional Data Attending physician: Omega Wiley MD Coding Level of Care Code None Diagnoses Acute on chronic systolic (congestive) heart failure I50.23 Elevated troponin R79.89 Coronary artery disease I25.10 Atrial fibrillation I48.21 Atrial fibrillation type: permanent Chronic respiratory failure with hypoxia J96.11 Anemia D64.9 Anemia type: unspecified type Diabetes mellitus, type II E11.9 Aortic stenosis I35.0 CKD (chronic kidney disease) N18.9 Chronic kidney disease stage: unspecified stage Constipation K59.00 Constipation type: unspecified constipation type Anxiety F41.9
--- NOTE | 2020-01-26 07:43 | Discharge Summary ---
Date of Service January 26, 2020 Admission HPI Per Admitting Provider Pt is 75 y/o M with PMH chronic systolic CHF, ischemic cardiomyopathy EF: 30%, CAD s/p CABG in 2002, A-fib on Coumadin, DM II, H/O CVA, HTN, Aortic stenosis s/p TAVR with bioprosthetic valve in 2017, chronic respiratory failure on 2L O2 presented to ER with c/o SOB with exertion x 2 weeks. Patient reports increased lower extremity edema x2 days. Patient on 2 L oxygen chronically and reports increased it to 3 L past couple of days with little improvement of shortness of breath. Patient reports has not been checking home weights. Reports decreased appetite and oral intake since surgery in 11/2019. he does state has been eating some prepackaged meals but not more than his baseline. Denies orthopnea or PND. Pt states has been having generalized weakness and hasn't been very active since being home. Denies fever/chills, diaphoresis, N/V/D/C, LUCERO, dizziness, syncope, vision changes, neck pain, CP, SOB, orthopnea, palpitations, cough, sore throat, choking, otalgia, rhinorrhea, abdominal pain, melena, hematochezia, paresthesias, rashes, urinary symptoms. Pt was recently admitted to [facility] 11/26/19 through 11/30/19 for cholelithiasis, cholangitis with choledocholithiasis, MSSA bacteremia. Had echo that did not show any vegetation. [place] [facility] [place] on 12/05/19. On 12/02, patient underwent EUS which showed evidence of multiple gallstones with purulence within the gallbladder consistent with cholecystitis and cholecystoduodenostomy ([id number]) was placed. EUS also remarkable for multiple duodenal erosions and esophageal biopsy was obtained (which showed evidence of chronic inflammation without dysplasia)." ID had recommended continuing IV Zosyn until 12/12/19 to treat MSSA bacteremia and cholecystitis. Patient was then discharged to [facility] on 12/05/19. Admitted 12/10/2019-12/13/2019 for GI bleed. EGD 12/11/2019 axios metal stent and duodenal bulb with ulceration of gallbladder wall. ERCP 2 stents removed from CBD. During that admission patient received 1 unit PRBC with hemoglobin 7.6 up to 9. His aspirin and Coumadin was resumed, Protonix 40 mg twice daily x2 months was recommended. H/O echo on 11/26/2019: EF: 30-35%, mild concentric LVH, apical septum and apical inferior wall akinetic, posterior wall at base and mid level is akinetic, all other segments hypokinetic, normal gradient prosthetic aortic valve, mild mitral regurgitation, mild tricuspid regurgitation Admission Exam Per Admitting Provider General: no acute distress, WDWN Head: normocephalic, atraumatic Eyes: PERRL, EOM's intact, conjunctiva non-injected, anicteric ENT: normal inspection external ears, nose, mucous membranes moist Neck: supple, trachea midline, non-tender Lungs: no respiratory distress at rest on 3L oxygen via NC, +faint rales at bases and diminished breath sounds CV: irregularly irregular, +systolic murmur, rate 92, 2-3+ pitting pretibial edema Abd: normal BS, +ecchymosis lower abdomen, soft, non-tender Ext: no cyanosis, no calf tenderness Neuro: A&O x 3, no focal deficits noted, normal affect Skin: warm, dry Principal Diagnosis Acute on chronic (systolic) heart failure Discharge Exam by KERRIE Perkins Date: 01/26/2020 Time: 0103 Patient entered asystole rhythm at 0103 01/26/2020. Pupils were fixed and dilated without response. No palpable pulses appreciated. No spontaneous breaths noted. Heart sounds were absent. No response to painful stimuli. Discharge Data Allergies Allergy/AdvReac Type Severity Reaction Status Date / Time lisinopril AdvReac Mild COUGH Verified 12/10/19 12:56 Consultations 01/21/20 14:35 ED Decision to Admit Stat 01/21/20 16:37 Consult Cardiology Routine Consult Case Management - Discharge Planning Routine 01/24/20 03:57 Consult Case Management - Discharge Planning Routine Consult Vehicle Painter Routine 01/24/20 04:22 Consult Case Management - Discharge Planning Routine 01/25/20 06:10 Consult Palliative Care Routine 01/25/20 22:04 Consult Case Management - Discharge Planning Routine Consult Palliative Care Routine Procedures Performed Operation Date: 01/26/20 09:00 <No data on this case meets the specified criteria> Ordered Studies 01/24/20 04:13 CT head/brain wo con Stat Impression: 1. Old right occipital infarct. 2. No acute intracranial abnormality. 01/24/20 04:14 CT abd pelvis wo con Stat IMPRESSION: 1. Bilateral pleural effusions with bilateral lower lobe atelectatic change. 2. Hepatic cirrhosis with mild to moderate abdominal and pelvic ascites. 3. Moderate body wall anasarca. 4. Nonobstructive bowel pattern. 5. Rectal fecal impaction. CT chest wo con Stat IMPRESSION: 1. Bilateral pleural effusions. 2. Bilateral lower lobe consolidative change. 3. Moderate stable cardiomegaly post median sternotomy. 4. Endotracheal tube 4 cm above the derrell. 5. Nasogastric tube within the stomach. 6. Upper abdominal ascites with findings consistent with hepatic cirrhosis. Hospital Course (1) Acute on chronic systolic (congestive) heart failure: History of chronic systolic heart failure, ischemic cardiomyopathy Pt is 75 y/o M with PMH chronic systolic CHF, ischemic cardiomyopathy EF: 30%, CAD s/p CABG in 2002, A-fib on Coumadin, DM II, H/O CVA, HTN, Aortic stenosis s/p TAVR with bioprosthetic valve in 2016, chronic respiratory failure on 2L O2 presented to ER with c/o SOB with exertion x 2 weeks. BLE edema x2 days. Echo on 11/26/2019: EF: 30-35%, mild concentric LVH, apical septum and apical inferior wall akinetic, posterior wall at base and mid level is akinetic, all other segments hypokinetic, normal gradient prosthetic aortic valve, mild mitral regurgitation, mild tricuspid regurgitation In ER afebrile, P: 77-101, R: 20, BP: 108/66, 96% on RA up to 100% on 3L oxygen via NC, No leukocytosis, H/H: 9.6/33, BUN: 59, Cr: 1.56 (1.3-1.4 in 11/2019), BNP : 10,739 CXR: congestive changes, small bilateral effusions -In ER given Lasix 40 mg IV, added albumin -Monitor I's and O's, daily weights, low-sodium diet -Lasix 40 mg IV daily + IV albumin -Continue spironolactone, hold torsemide -Cardiology consulted, appreciate their input -continued w/40 mg IV lasix AM 01/22 Shock -Patient found unresponsive overnight (01/22-01/23), hypotensive, required intubation and pressor support -Likely cardiogenic versus poss. septic (patient was treated for acute CHF exacerbation, prior to this event low suspicion for infection) -Echocardiogram was obtained (01/23) -showed EF of 25 to 30%, LV systolic function severely reduced. Underlying rhythm A. fib with frequent PVCs. [place] involving apical septum and apical inferior wall is akinetic. Posterior wall at the base and mid level is akinetic. The remaining LV myocardial wall segments are hypokinetic. Gradient is normal for prosthetic aortic valve. Systolic pulmonary artery pressure is 51. -Cardiology reviewed echo, and compared EF with previous from October 2019, did not feel as there was significant difference -CT chest significant for large right pleural effusion. -Possibly consider thoracentesis, per discretion of pulmonary medicine -Diuretics on hold due to hypotension Hypoxic respiratory failure, acute on chronic patient wears 2-3 L NC at baseline -Likely secondary to CHF exacerbation/pleural effusion/poss.pna / poss. aspiration -Chest imaging revealed significant right pleural effusion, small left pleural effusion, bilateral lower lobe consolidative change and possible aspiration, per CT abdomen bilateral lower lobe atelectatic change -Pt was intubated as he was failing to protect his airway -Management per ICU/pulmonary medicine -Empiric antibiotics also started Per discussion with patient's , she found advanced directives where patient did not wish for mechanical ventilation. Patient was terminally extubated in the morning of January 24, with no escalation of care. Patient's present at the bedside. Palliative medicine consulted. Patient began to decompensate overnight and on January 25, soon after 1 AM. He was pronounced by ICU staff. (2) Elevated troponin: Troponin: 0.05. EKG afib, RBBB, inferior infarct pattern also seen on EKG 12/10/2019 INR: 4.1 No chest pain. Suspect demand ischemia -monitored on tele -troponin peaked at 0.059 -Continued aspirin, metoprolol, statin -cardiology consulted and following (3) Coronary artery disease: S/P CABG in 2002 -Continue aspirin, metoprolol, statin (4) Atrial fibrillation: Chronic A. fib on Coumadin INR: 4.1 on admission, then 4.4 -now down to 2.2 -Continued metoprolol -re-started coumadin 01/22 -monitor INR (5) Chronic respiratory failure with hypoxia: On 2-3L oxygen chronic -continued supplemental oxygen while inpt -after intubation, resp. care and vent. management per ICU staff (6) Anemia: H/H: 9.6/33. Recent hospital admission for GI bleed. Hgb stable since discharge. -Monitor H&H -Continued chronic PPI (7) Diabetes mellitus, type II: A1c: 7.4 on 11/26/2019 -Novolog sliding scale (8) Aortic stenosis: 2017 H/O TAVR complicated by rupture of the prosthetic valve, aortic valve replacement with bioprosthesis, mitral valve repair (9) CKD (chronic kidney disease): MARISA on CKD stage III Baseline about 1.3-1.4 Cr 1.56 on admission, then down to baseline 1.33 Cont. to monitor -improved w/ lasix and albumin (10) Constipation: -Started patient on oral softeners and suppositories -now pt in ICU, CT abdomen obtained due to episode of unresponsiveness, shock -On imaging stool burden noted, rectal stool impaction, attempted enema (11) Anxiety: -Continue buspirone DVT Prophylaxis -On Coumadin, Current INR therapeutic CODE status-DNR/ DNI Full Code as per discussion with pt on admission, CODE STATUS then discussed overnight 01/23, when patient found unresponsive, and in shock. Per patient's no CPR or defibrillation in case of cardiac arrest, patient's agreeable to cardiac medications, pressors, and mechanical ventilation. Later on 01/23, patient's found advance directives previously prepared by her , where he stated he would not wish for mechanical ventilation. She brought the paperwork to the hospital today 01/24, and patient was terminally extubated. Palliative medicine also consulted. 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 Follows with PCP: Dr Puri for routine care Total Time Total Time Spent Total Time Spent (In Minutes): 20 Discharge Plan Discharge Items Patient Disposition: Reason For Visit: CHF Discharge Diagnosis: Acute on chronic (systolic) heart failure Follow-up/Referrals: Barrera Puri MD [Primary Care Provider] - Stand-Alone Forms: [facility] Admission Data Admit Date/Time: 01/21/20 15:05 Other DC Date/Time DO NOT enter until pt leaves facility: 01/26/20 02:01
== END 2020-01-26 02:01 | disposition expired | DRG 291 ==
LOC: ED 12:46 → 2S 15:05 → SUATTDRO 15:05 → 2S 15:46 → 1E 01-24 04:06